=== PATIENT | male | born 1945 | race Caucasian/White ===

== ENCOUNTER 2018-05-10 11:19 | Emergency (ER) | payer OTHER ==
--- OUTSIDE RECORDS SUMMARY | 2018-05-10 11:21 | XMS REPORT ---
:1945 [facility] Address [address] [place] [address] Dr. Phillips [address] [place] [id number] Care Team Providers Name Role Phone Unavailable Unavailable Unavailable Problems This patient has no known problems. Allergies, Adverse Reactions, Alerts This patient has no known allergies or adverse reactions. Medications This patient has no known medications.
--- NOTE | 2018-05-10 14:23 | RAD REPORT ---
EXAM DESCRIPTION: RAD - Wrist Right 3 View - 05/10/2018 2:13 pm CLINICAL HISTORY: Right wrist pain status post injury FINDINGS: No fracture or dislocation is seen. If the patient continues to have symptoms to suggest a n occult fracture then a followup plain film series in 7 days would be recommended. Shrapnel is present within the the volar soft tissues
--- NOTE | 2018-05-10 14:24 | RAD REPORT ---
EXAM DESCRIPTION: RAD - Knee Right 3 View - 05/10/2018 2:12 pm CLINICAL HISTORY: Right knee pain FINDINGS: No fracture or dislocation is seen. Right knee prosthesis is in good position without evidence of loosening
--- NOTE | 2018-05-10 14:29 | RAD REPORT ---
EXAM DESCRIPTION: CT - Head C Spine Mpr Wo Con - 05/10/2018 1:59 pm CLINICAL HISTORY: Head and neck injury status post fall. Head and neck pain COMPARISON: None. TECHNIQUE: Computed axial tomography of the head and cervical spine was obtained. Sagittal and coronal reconstruction was performed. All CT scans are performed using dose optimization technique as appropriate and may include automated exposure control or mA/KV adjustment according to patient size. FINDINGS: An intracranial bleed is not seen. The ventricles are normal in caliber. An extra-axial fl uid collection is not noted.Fluid within the visualized sinuses and mastoids is not seen A cervical fracture is not visualized. No dislocation is noted. IMPRESSION: No acute intracranial abnormality is seen. A cervical fracture is not visualized. If the patient continues to have symptoms to suggest intracra nial /spinal cord pathology then MRI would be recommended
--- NOTE | 2018-05-10 15:15 | EDPHYS ---
Physician Documentation [facility] Name: Dwight Flaherty Age: 73 yrs Sex: Male : 1945 Arrival Date: 05/10/2018 Time: 11:23 Bed 11 Private MD: ED Physician Lion Rocha HPI: 05/10 14:26 This 73 yrs old Male presents to ER via Ambulatory with complaints of Fall jmm Injury. 14:26 Details of fall: The patient fell from an upright position. Onset: The symptoms/episode jmm began/occurred acutely. 14:26 Associated injuries: The patient sustained no obvious injury. jmm 14:26 This is a 73 year old male with a history of dm, htn that presents to the ED after a jmm fall which occurred yesterday. Patient states while picking up a paper his weight shifted and he was unable to regain balance. Patient denies loc. complaints of pain to the right wrist. Patient states he hit his head and developed nausea today. Patient denies not take anticoagulants. . Historical: - Allergies: 11:51 No Known Allergies; ph - PMHx: 11:51 Diabetes - IDDM; Hypertension; ph - PSHx: 11:51 Cholecystectomy; b/l knee replacements; ph - Immunization history: Last tetanus immunization: unknown. - Social history:: Smoking status: Patient/guardian denies using tobacco. - Ebola Screening: : No symptoms or risks identified at this time. ROS: 14:26 Constitutional: Negative for fever, chills, and weight loss, Cardiovascular: Negative jmm for chest pain, palpitations, and edema, Respiratory: Negative for shortness of breath, cough, wheezing, and pleuritic chest pain. 14:26 Abdomen/GI: Positive for nausea. 14:26 MS/extremity: Positive for abrasion, pain. 14:26 Neuro: Positive for headache. 14:26 All other systems are negative. Exam: 14:26 Constitutional: This is a well developed, well nourished patient who is awake, alert, jmm and in no acute distress. Head/Face: atraumatic. Eyes: EOMI, no conjunctival erythema appreciated ENT: Moist Mucus Membranes Neck: Trachea midline, Supple 14:26 Neck: C-spine: appears grossly normal. 14:26 Chest/axilla: Inspection: normal, Palpation: tenderness, is not appreciated. 14:26 Cardiovascular: Rate: normal, Rhythm: regular. 14:26 Respiratory: the patient does not display signs of respiratory distress, Respirations: normal, Breath sounds: are clear throughout. 14:26 Abdomen/GI: Inspection: abdomen appears normal, Bowel sounds: normal, Palpation: abdomen is soft and non-tender, in all quadrants. 14:26 Musculoskeletal/extremity: ROM: intact in all extremities, painful flexion of the right wrist appreciated, no bony tenderness appreciated, no snuff box tenderness is appreciated. compartments are soft, nvi. FROM noted to the right knee, abrasion noted to the superior tibial region, NVI. 14:26 Skin: abrasions noted to the right and left forearms and the right tibial region. 14:26 Neuro: Orientation: is normal, Mentation: is normal, Memory: is normal. 14:26 Psych: Behavior/mood is pleasant, cooperative. Vital Signs: 11:51 BP 152 / 102; Pulse 72; Resp 18; Temp 97.9; Pulse Ox 98% on R/A; Weight 173.27 kg; ph Height 6 ft. 8 in. (203.20 cm); Pain 3/10; 11:51 Body Mass Index 41.96 (173.27 kg, 203.20 cm) ph Audrey Coma Score: 11:51 Eye Response: spontaneous(4). Verbal Response: oriented(5). Motor Response: obeys ph commands(6). Total: 15. Trauma Score (Adult): 11:51 Eye Response: spontaneous(1); Verbal Response: oriented(1); Motor Response: obeys ph commands(2); Systolic BP: > 89 mm Hg(4); Respiratory Rate: 10 to 29 per min(4); Audrey Score: 15; Trauma Score: 12 MDM: 14:26 Patient medically screened. [facility] 15:13 Data reviewed: vital signs, nurses notes. Counseling: I had a detailed discussion with arnaldo the patient and/or guardian regarding: the historical points, exam findings, and any diagnostic results supporting the discharge/admit diagnosis, radiology results, the need for outpatient follow up, to return to the emergency department if symptoms worsen or persist or if there are any questions or concerns that arise at home. 15:13 ED course: Patient is alert and non toxic in appearance in the ED. Patient advised to [facility] follow up with orthopedics for further evaluation of the right wrist. CT negative, NVI. 05/10 13:43 Order name: CT Head C Spine; Complete Time: 14:30 05/10 13:44 Order name: Knee Right 3 View XRAY; Complete Time: 14:30 05/10 13:44 Order name: Wrist Right 3 View XRAY; Complete Time: 14:30 05/10 15:03 Order name: Wound Care; Complete Time: 15:56 [facility] Administered Medications: 15:56 Drug: Tetanus-Diphtheria Toxoid Adult 0.5 ml {Precision Filer Hand: IMT ([employer]) Biologic. Exp: hb 04/12/2020. Lot #: [id number]. } Route: IM; Site: right deltoid; 16:10 Follow up: Response: No adverse reaction hb Disposition: 05/11 09:09 Co-signature as Attending Physician, Lion Rocha MD I agree with the assessment and jose plan of care. Disposition: 05/10/18 15:14 Discharged to Home. Impression: Unspecified injury of head, Sprain of unspecified part of right wrist and hand, Abrasion of lower leg. - Condition is Fair. - Discharge Instructions: Abrasion, Head Injury, Adult, Wrist Sprain. - Medication Reconciliation Form, Thank You Letter, Antibiotic Education, Prescription Opioid Use form. - Follow up: Private Physician; When: 2 - 3 days; Reason: Recheck today's complaints, Continuance of care, Re-evaluation by your physician. Signatures: Dispatcher [employer] Lion Carbajal MD MD cha Mickail, Joel, PA PA jmm Hall, Patricia, PUMA RN Renetta Cates RN RN Corrections: (The following items were deleted from the chart) 05/10 16:25 15:14 05/10/2018 15:14 Discharged to Home. Impression: Unspecified injury of head; hb Sprain of unspecified part of right wrist and hand; Abrasion of lower leg. Condition is Fair. Forms are Medication Reconciliation Form, Thank You Letter, Antibiotic Education, Prescription Opioid Use. Follow up: Private Physician; When: 2 - 3 days; Reason: Recheck today's complaints, Continuance of care, Re-evaluation by your physician. arnaldo
--- NOTE | 2018-05-10 15:15 | ER ---
Nurse's Notes [facility] Name: Dwight Flaherty Age: 73 yrs Sex: Male : 1945 Arrival Date: 05/10/2018 Time: 11:23 Bed 11 Private MD: Diagnosis: Unspecified injury of head;Sprain of unspecified part of right wrist and hand;Abrasion of lower leg Presentation: 05/10 11:55 Presenting complaint: Patient states: Slipped and fell in driveway, states that he is ph unsure if he lost consciousness, reports nausea, pain to R wrist and R knee, abrasions noted to R forearm and R knee, denies dizziness or vomiting. Transition of care: patient was not received from another setting of care. Onset of symptoms was May 10, 2018. Risk Assessment: Do you want to hurt yourself or someone else? Patient reports no desire to harm self or others. Initial Sepsis Screen: Does the patient meet any 2 criteria? No. Patient's initial sepsis screen is negative. Does the patient have a suspected source of infection? No. Patient's initial sepsis screen is negative. Care prior to arrival: None. 11:55 Method Of Arrival: Ambulatory ph 11:55 Acuity: GENO 4 ph Historical: - Allergies: 11:51 No Known Allergies; ph - PMHx: 11:51 Diabetes - IDDM; Hypertension; ph - PSHx: 11:51 Cholecystectomy; b/l knee replacements; ph - Immunization history: Last tetanus immunization: unknown. - Social history:: Smoking status: Patient/guardian denies using tobacco. - Ebola Screening: : No symptoms or risks identified at this time. Screenin:15 Abuse screen: Denies threats or abuse. Denies injuries from another. Nutritional hb screening: No deficits noted. Tuberculosis screening: No symptoms or risk factors identified. Fall Risk None identified. Assessment: 14:00 General: Appears in no apparent distress. Behavior is calm, cooperative. Pain: Pain hb currently is 2 out of 10 on a pain scale. Neuro: Level of Consciousness is awake, alert, obeys commands, Oriented to person, place, time, situation. Cardiovascular: Capillary refill < 3 seconds Patient's skin is warm and dry. Respiratory: Airway is patent Respiratory effort is even, unlabored, Respiratory pattern is regular, symmetrical. GI: No signs and/or symptoms were reported involving the gastrointestinal system. : No signs and/or symptoms were reported regarding the genitourinary system. EENT: No signs and/or symptoms were reported regarding the EENT system. Derm: Skin is pink, warm \T\ dry. Musculoskeletal: abrasion to right knee. 15:00 Reassessment: Patient appears in no apparent distress at this time. No changes from hb previously documented assessment. Patient and/or family updated on plan of care and expected duration. Pain level reassessed. Patient is alert, oriented x 3, equal unlabored respirations, skin warm/dry/pink. 16:00 Reassessment: Patient appears in no apparent distress at this time. No changes from hb previously documented assessment. Patient and/or family updated on plan of care and expected duration. Pain level reassessed. Patient is alert, oriented x 3, equal unlabored respirations, skin warm/dry/pink. Vital Signs: 11:51 BP 152 / 102; Pulse 72; Resp 18; Temp 97.9; Pulse Ox 98% on R/A; Weight 173.27 kg; ph Height 6 ft. 8 in. (203.20 cm); Pain 3/10; 11:51 Body Mass Index 41.96 (173.27 kg, 203.20 cm) ph [place] Coma Score: 11:51 Eye Response: spontaneous(4). Verbal Response: oriented(5). Motor Response: obeys commands(6). Total: 15. Trauma Score (Adult): 11:51 Eye Response: spontaneous(1); Verbal Response: oriented(1); Motor Response: obeys commands(2); Systolic BP: > 89 mm Hg(4); Respiratory Rate: 10 to 29 per min(4); [place] Score: 15; Trauma Score: 12 ED Course: 11:23 Patient arrived in ED. tw3 11:52 Arm band placed on right wrist. Patient placed in waiting room, Patient notified of wait time. 11:56 Triage completed. 13:53 Wagner Reich PA is PHCP. [facility] 13:53 Lion Rocha MD is Attending Physician. [facility] 13:57 CT completed. Patient tolerated procedure well. Patient moved to CT via wheelchair. sj Patient moved back from CT. 13:59 CT Head C Spine In Process Unspecified. EDMS 14:11 X-ray completed. Patient tolerated procedure well. Patient moved to radiology via tm4 wheelchair. Patient moved back from radiology. 14:13 Knee Right 3 View XRAY In Process Unspecified. EDMS 14:13 Wrist Right 3 View XRAY In Process Unspecified. EDMS 15:00 Patient has correct armband on for positive identification. Bed in low position. Call hb light in reach. Side rails up X 1. 15:59 Renetta Alvarez, RN is Primary Nurse. hb 16:15 No provider procedures requiring assistance completed. Patient did not have IV access hb during this emergency room visit. Administered Medications: 15:56 Drug: Tetanus-Diphtheria Toxoid Adult 0.5 ml {Ship Pilot: [place]. Exp: hb 04/12/2020. Lot #: [id number]. } Route: IM; Site: right deltoid; 16:10 Follow up: Response: No adverse reaction hb Intake: 11:51 PO: 0ml; Total: 0ml. ph Output: 11:51 Urine: 0ml; Total: 0ml. ph Outcome: 15:14 Discharge ordered by . arnaldo 16:15 Discharged to home ambulatory. hb 16:15 Condition: stable 16:15 Discharge instructions given to patient, Instructed on discharge instructions, follow up and referral plans. medication usage, Demonstrated understanding of instructions, follow-up care, medications. 16:25 Patient left the ED. hb Signatures: Dispatcher [employer] EDMS Wagner Reich PA PA jmm Jones, Susan sj Marroquin, Tracy tm4 Mignon Pierson RN RN Renetta Alvarez, PUMA RN Lilly Pryor tw3
[2018-05-10] MEDS ORDERED: TETANUS & DIPHTHERIA TOX,ADULT 0.5 ML VIAL ONE (15:56)
[2018-05-10 16:31] VITALS: BP 152/102; TEMP 97.9; O2SAT 98
== END 2018-05-10 16:25 | disposition home or self-care (01) ==
LOC: ER 11:19
DX: S63.91XA Sprain of unspecified part of right wrist and hand, initial encounter (principal); S80.811A Abrasion, right lower leg, initial encounter; W19.XXXA Unspecified fall, initial encounter; Y93.89 Activity, other specified; Y92.9 Unspecified place or not applicable; Z23 Encounter for immunization; I10 Essential (primary) hypertension
CPT/HCPCS: 70450; 72125; 90714; 99284

== ENCOUNTER 2018-11-07 16:50 | Emergency (ER) | payer OTHER ==
--- OUTSIDE RECORDS SUMMARY | 2018-11-07 16:52 | XMS REPORT ---
:1945 [facility] Address [address] [place] [address] Dr. Phillips [address] [place] [id number] Care Team Providers Name Role Phone Unavailable Unavailable Unavailable Problems This patient has no known problems. Allergies, Adverse Reactions, Alerts This patient has no known allergies or adverse reactions. Medications This patient has no known medications.
--- NOTE | 2018-11-07 18:14 | RAD REPORT ---
EXAM DESCRIPTION: RAD - Foot Left 3 View - 11/07/2018 6:04 pm CLINICAL HISTORY: Ulcerated area dorsal base of small toe COMPARISON: No comparisons FINDINGS: Quite prominent degenerative changes are present at the first metatarsal-phalangeal joint. Soft tissue swelling is seen affecting the fifth digit. Mild soft tissue swelling is also present al esa the dorsum of the forefoot. No fracture or radiographic evidence of osteomyelitis. Large calcanea l spurs present.
[2018-11-07 19:26] LABS: Absolute Lymphocytes (CBC) 1.2 K/uL (0.7-4.9); Basophils % 0.4 % (0-1.3); Hematocrit 43.1 % (39.6-49.0); Lymphocytes % 13.2 % (15.3-44.8); MPV 8.7 fL (7.6-11.3); RBC Red Blood Cell Count 4.75 M/uL (4.33-5.43)
[2018-11-07] MEDS ORDERED: CLINDAMYCIN 900MG/D5W 900 MG/50 ML IVPB IV ONE (19:27)
[2018-11-07] MEDS ORDERED: SMZ./TMP. 800/160 MG TABLET ONE (19:27)
[2018-11-07 19:41] LABS: Potassium 4.4 mmol/L (3.5-5.1)
[2018-11-07] MEDS ORDERED: SILVER SULFADIAZINE 1% 25 GM TOP ONE (20:57)
--- NOTE | 2018-11-07 21:16 | ER ---
Nurse's Notes [facility] Name: Dwight Flaherty Age: 73 yrs Sex: Male : 1945 Arrival Date: 11/07/2018 Time: 16:53 Bed 16 Private MD: Otto Hawk Diagnosis: Pressure ulcer-left 5th toe;Type 1 diabetes mellitus;Unspecified kidney failure-insufficency Presentation: 11/07 18:20 Presenting complaint: Patient states: Blister/sore to L foot that appeared yesterday, ph denies known injury, hx of IDDM and neuropathy, denies fever, N/V. Transition of care: patient was not received from another setting of care. Onset of symptoms was November 07, 2018. Risk Assessment: Do you want to hurt yourself or someone else? Patient reports no desire to harm self or others. Initial Sepsis Screen: Does the patient meet any 2 criteria? No. Patient's initial sepsis screen is negative. Does the patient have a suspected source of infection? Yes: Skin breakdown/wound. Care prior to arrival: None. 18:20 Method Of Arrival: Ambulatory ph 18:20 Acuity: GENO 3 ph Historical: - Allergies: 18:22 No Known Allergies; ph - PMHx: 18:22 Diabetes - IDDM; Hypertension; psoriasis; ph - PSHx: 18:22 Cholecystectomy; b/l knee replacements; ph - Immunization history:: Adult Immunizations unknown. - Social history:: Smoking status: Patient/guardian denies using tobacco. - Ebola Screening: : No symptoms or risks identified at this time. Screenin:15 Abuse screen: Denies threats or abuse. Denies injuries from another. Nutritional ph screening: No deficits noted. Tuberculosis screening: No symptoms or risk factors identified. Fall Risk None identified. Assessment: 18:30 General: Appears in no apparent distress. comfortable, well groomed, Behavior is calm, ph cooperative, appropriate for age, Denies fever, feeling ill. Pain: Denies pain. Neuro: Level of Consciousness is awake, alert, obeys commands, Oriented to person, place, time, situation. Cardiovascular: Capillary refill < 3 seconds in bilateral fingers Patient's skin is warm and dry. Respiratory: Airway is patent Respiratory effort is even, unlabored, Respiratory pattern is regular, symmetrical. Derm: Skin is healthy with good turgor, Skin is pink, warm \T\ dry. Derm: Wound noted left fifth toe. Musculoskeletal: Circulation, motion, and sensation intact. Range of motion: intact in all extremities. 19:15 Reassessment: Patient appears in no apparent distress at this time. Patient and/or jb4 family updated on plan of care and expected duration. Pain level reassessed. Patient is alert, oriented x 3, equal unlabored respirations, skin warm/dry/pink. 20:28 Reassessment: Patient appears in no apparent distress at this time. Patient and/or jb4 family updated on plan of care and expected duration. Pain level reassessed. Patient is alert, oriented x 3, equal unlabored respirations, skin warm/dry/pink. 21:29 Reassessment: Patient appears in no apparent distress at this time. Patient and/or jb4 family updated on plan of care and expected duration. Pain level reassessed. Patient is alert, oriented x 3, equal unlabored respirations, skin warm/dry/pink. Vital Signs: 18:21 BP 143 / 71; Pulse 75; Resp 18; Temp 97.9; Pulse Ox 97% on R/A; Weight 165.11 kg; ph Height 6 ft. 8 in. (203.20 cm); Pain 0/10; 20:30 BP 133 / 66; Pulse 74; Resp 16; Pulse Ox 97% on R/A; jb4 21:00 BP 133 / 75; Pulse 76; Resp 16; Pulse Ox 97% on R/A; jb4 18:21 Body Mass Index 39.99 (165.11 kg, 203.20 cm) ph ED Course: 16:53 Patient arrived in ED. ag5 16:53 Otto Hawk DO is Private Physician. ag5 17:05 Michele Ortega MD is Attending Physician. kdr 18:10 Foot Left 3 View XRAY In Process Unspecified. EDMS 18:20 Mignon Pierson, PUMA is Primary Nurse. ph 18:21 Triage completed. ph 18:22 Arm band placed on. ph 19:07 Initial lab(s) drawn, by me, sent to lab. First set of blood cultures drawn by me. em1 Inserted saline lock: 20 gauge in right antecubital area, using aseptic technique. Blood collected. 19:15 Patient has correct armband on for positive identification. Bed in low position. Call ph light in reach. Side rails up X 1. Pulse ox on. NIBP on. Door closed. Noise minimized. Warm blanket given. Head of bed elevated. 19:48 Attending Physician role handed off by Michele Ortega MD cha 19:48 Lion Rocha MD is Attending Physician. [facility] 21:01 Otto Hawk DO is Referral Physician. [facility] 21:05 Redd Fung MD is Referral Physician. [facility] 21:30 No provider procedures requiring assistance completed. IV discontinued, intact, jb4 bleeding controlled, No redness/swelling at site. Pressure dressing applied. Administered Medications: 19:34 Drug: Clindamycin 900 mg Route: IVPB; Infused Over: 30 mins; Site: right antecubital; jb4 20:04 Follow up: Response: No adverse reaction; IV Status: Completed infusion; IV Intake: [id number] 19:34 Drug: Bactrim (160 mg-800 mg (DS) 1 tablet Route: PO; jb4 21:28 Follow up: Response: No adverse reaction jb4 19:40 Not Given (Other Intervention Used): Bactrim - Trimethoprim-Sulfamethoxazole (40mg - jb4 200mg / 5mL) 1 tsp PO once 21:15 Drug: Silvadene Cream 1 % 1 application Route: Topical; Site: wound; jb4 21:28 Follow up: Response: No adverse reaction jb4 21:27 Drug: Tetanus-Diphtheria Toxoid Adult 0.5 ml {Gizzard Skin Remover: [employer]. Exp: jb4 07/10/2020. Lot #: [id number]. } Route: IM; Site: left deltoid; 21:28 Follow up: Response: Medication administered at discharge. jb4 Intake: 20:04 IV: 50ml; Total: 50ml. jb4 Outcome: 21:03 Discharge ordered by . [facility] 21:30 Discharged to home ambulatory, with family. jb4 21:30 Condition: stable 21:30 Discharge instructions given to patient, family, Instructed on discharge instructions, follow up and referral plans. medication usage, Demonstrated understanding of instructions, follow-up care, medications, Prescriptions given X 3. 21:30 Patient left the ED. jb4 Signatures: Dispatcher [employer] EDNJ Lion Rocha MD MD cha Rittger, Kevin, MD MD kdr Martinez, Eric em1 Mignon Pierson RN RN Duran Mxion RN RN jb4 Redd Scott ag5 Corrections: (The following items were deleted from the chart) 19:39 19:34 Bactrim - Trimethoprim-Sulfamethoxazole (40mg - 200mg / 5mL) 1 tsp PO jb4 jb4 21:30 21:00 No provider procedures requiring assistance completed. jb4 jb4 21:30 21:00 IV discontinued, intact, bleeding controlled, No redness/swelling at site. jb4 Pressure dressing applied, jb4
--- NOTE | 2018-11-07 21:16 | EDPHYS ---
Physician Documentation [facility] Name: Dwight Flaherty Age: 73 yrs Sex: Male : 1945 Arrival Date: 11/07/2018 Time: 16:53 Bed 16 Private MD: Otto Hawk ED Physician iLon Rocha HPI: 11/07 18:28 This 73 yrs old Male presents to ER via Ambulatory with complaints of Foot kdr Pain. 18:28 The patient presents with an abrasion, an injury, pain, that is acute. The complaints kdr affect the left foot. Context: The problem was sustained at home, resulted from The patient states that he noted a small abrasion to the dorsum of his left small toe on Monday evening. Since then, he has noted that it has increased in size and now there is ecchymosis to the lateral aspect of the wound which is now about 1 CM in letty. There is also mild erythema to the lateral dorsum of the left foot as well. Due to his diabetic peripheral neuropathy, he has little sensation bilaterally below the ankles. Onset: The symptoms/episode began/occurred gradually, Monday. Modifying factors: The symptoms are alleviated by nothing, the symptoms are aggravated by nothing. Associated signs and symptoms: The patient has no apparent associated signs or symptoms. Severity of symptoms: At their worst the symptoms were mild, in the emergency department the symptoms are unchanged. The patient has not experienced similar symptoms in the past. The patient has not recently seen a physician. Historical: - Allergies: 18:22 No Known Allergies; ph - PMHx: 18:22 Diabetes - IDDM; Hypertension; psoriasis; ph - PSHx: 18:22 Cholecystectomy; b/l knee replacements; ph - Immunization history:: Adult Immunizations unknown. - Social history:: Smoking status: Patient/guardian denies using tobacco. - Ebola Screening: : No symptoms or risks identified at this time. ROS: 18:28 MS/extremity: Positive for abrasion, ecchymosis, erythema, of the left fifth toe. kdr 18:28 Constitutional: Negative for fever, chills, and weight loss, Eyes: Negative for injury, pain, redness, and discharge, Neck: Negative for injury, pain, and swelling, Cardiovascular: Negative for chest pain, palpitations, and edema, Respiratory: Negative for shortness of breath, cough, wheezing, and pleuritic chest pain, Abdomen/GI: Negative for abdominal pain, nausea, vomiting, diarrhea, and constipation, Back: Negative for injury and pain. Exam: 18:28 Constitutional: This is a well developed, well nourished patient who is awake, alert, kdr and in no acute distress. 18:28 Skin: cellulitis, that is minimal, induration, that is mild is noted, lesion(s). Vital Signs: 18:21 BP 143 / 71; Pulse 75; Resp 18; Temp 97.9; Pulse Ox 97% on R/A; Weight 165.11 kg; ph Height 6 ft. 8 in. (203.20 cm); Pain 0/10; 20:30 BP 133 / 66; Pulse 74; Resp 16; Pulse Ox 97% on R/A; jb4 21:00 BP 133 / 75; Pulse 76; Resp 16; Pulse Ox 97% on R/A; jb4 18:21 Body Mass Index 39.99 (165.11 kg, 203.20 cm) ph MDM: 19:48 Patient medically screened. [facility] 21:01 Data reviewed: vital signs, nurses notes, lab test result(s), radiologic studies, plain jose films. 11/07 17:46 Order name: Blood Culture Adult (2) [facility] 11/07 17:46 Order name: CBC with Diff; Complete Time: 21:01 [facility] 11/07 17:46 Order name: Foot Left 3 View XRAY; Complete Time: 19:19 [facility] 11/07 17:46 Order name: Chem 7; Complete Time: 21:01 [facility] 11/07 21:00 Order name: Dressing - Wound; Complete Time: 21:15 [facility] 11/07 21:00 Order name: Gloves, Sterile; Complete Time: 21:15 [facility] 11/07 21:00 Order name: Setup Suture Tray; Complete Time: 21:15 [facility] 11/07 21:00 Order name: Post-op shoe; Complete Time: 21:15 [facility] Administered Medications: 19:34 Drug: Clindamycin 900 mg Route: IVPB; Infused Over: 30 mins; Site: right antecubital; jb4 20:04 Follow up: Response: No adverse reaction; IV Status: Completed infusion; IV Intake: [id number] 19:34 Drug: Bactrim (160 mg-800 mg (DS) 1 tablet Route: PO; jb4 21:28 Follow up: Response: No adverse reaction jb4 19:40 Not Given (Other Intervention Used): Bactrim - Trimethoprim-Sulfamethoxazole (40mg - jb4 200mg / 5mL) 1 tsp PO once 21:15 Drug: Silvadene Cream 1 % 1 application Route: Topical; Site: wound; jb4 21:28 Follow up: Response: No adverse reaction jb4 21:27 Drug: Tetanus-Diphtheria Toxoid Adult 0.5 ml {[employer]: [employer]. Exp: jb4 07/10/2020. Lot #: [id number]. } Route: IM; Site: left deltoid; 21:28 Follow up: Response: Medication administered at discharge. jb4 Disposition: 11/07/18 21:03 Discharged to Home. Impression: Pressure ulcer - left 5th toe, Type 1 diabetes mellitus, Unspecified kidney failure - insufficency. - Condition is Stable. - Discharge Instructions: Cellulitis, Adult, Type 1 Diabetes Mellitus, Diagnosis, Adult, Cellulitis, Adult, Orgd-ks-Eqdn, Chronic Kidney Disease, Adult, Ahyo-mw-Fhln, Type 1 Diabetes Mellitus, Self Care, Adult, Type 1 Diabetes Mellitus, Diagnosis, Adult, Xwkt-ce-Dibz, Type 1 Diabetes Mellitus, Self Care, Adult, Zaia-md-Ddog. - Prescriptions for Clindamycin HCl 300 mg Oral Capsule - take 1 capsule by ORAL route every 6 hours for 7 days; 28 capsule. Silvadene 1 % Topical Cream - Apply to affected area 1 application by TOPICAL route every 12 hours; 50 gram. Bactrim DS 800- 160 mg Oral Tablet - take 1 tablet by ORAL route every 12 hours for 7 days; 14 tablet. - Medication Reconciliation Form, Thank You Letter, Antibiotic Education, Prescription Opioid Use form. - Follow up: Otto Hawk DO; When: 2 - 3 days; Reason: Recheck today's complaints, Continuance of care, Re-evaluation by your physician. Follow up: Redd Fung MD; When: 2 - 3 days; Reason: Recheck today's complaints, Re-evaluation by your physician. - Problem is new. - Symptoms have improved. Signatures: Dispatcher [employer] EDLion Castellanos MD MD cha Rittger, Kevin, MD MD kdr Hall, Patricia, RN RN ph Duran Mixon, RN RN jb4 Corrections: (The following items were deleted from the chart) 21:05 21:03 11/07/2018 21:03 Discharged to Home. Impression: Pressure ulcer - left 5th toe; jose Type 1 diabetes mellitus; Unspecified kidney failure - insufficency. Condition is Stable. Forms are Medication Reconciliation Form, Thank You Letter, Antibiotic Education, Prescription Opioid Use. Follow up: Otto Hawk; When: 2 - 3 days; Reason: Recheck today's complaints, Continuance of care, Re-evaluation by your physician. Problem is new. Symptoms have improved. jose 21:30 21:05 11/07/2018 21:03 Discharged to Home. Impression: Pressure ulcer - left 5th toe; jb4 Type 1 diabetes mellitus; Unspecified kidney failure - insufficency. Condition is Stable. Discharge Instructions: Cellulitis, Adult, Type 1 Diabetes Mellitus, Diagnosis, Adult, Cellulitis, Adult, Exrz-xz-Ucwq, Chronic Kidney Disease, Adult, Kmxd-it-Zrad, Type 1 Diabetes Mellitus, Self Care, Adult, Type 1 Diabetes Mellitus, Diagnosis, Adult, Kooq-no-Dnmv, Type 1 Diabetes Mellitus, Self Care, Adult, Vbcv-up-Qjwu. Prescriptions for Clindamycin HCl 300 mg Oral Capsule - take 1 capsule by ORAL route every 6 hours for 7 days; 28 capsule, Silvadene 1 % Topical Cream - Apply to affected area 1 application by TOPICAL route every 12 hours; 50 gram, Bactrim DS 800-160 mg Oral Tablet - take 1 tablet by ORAL route every 12 hours for 7 days; 14 tablet. and Forms are Medication Reconciliation Form, Thank You Letter, Antibiotic Education, Prescription Opioid Use. Follow up: Otto Hawk; When: 2 - 3 days; Reason: Recheck today's complaints, Continuance of care, Re-evaluation by your physician. Follow up: Redd Fung; When: 2 - 3 days; Reason: Recheck today's complaints, Re-evaluation by your physician. Problem is new. Symptoms have improved. jose
[2018-11-07] MEDS ORDERED: TETANUS & DIPHTHERIA TOX,ADULT 0.5 ML VIAL ONE (21:20)
[2018-11-07 22:06] VITALS: TEMP 97.9; O2SAT 97
[2018-11-07 22:09] VITALS: BP 133/75
== END 2018-11-07 21:30 | disposition home or self-care (01) ==
LOC: ER 16:50
DX: L89.899 Pressure ulcer of other site, unspecified stage (principal); N19 Unspecified kidney failure; E10.40 Type 1 diabetes mellitus 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neuropathy, unspecified; Z96.653 Presence of artificial knee joint, bilateral; Z23 Encounter for immunization
CPT/HCPCS: 36415; 80048; 85025; 87040; 90471; 90714; 96365; 99284

== ENCOUNTER 2019-04-17 23:39 | Inpatient (IN) | payer OTHER ==
--- OUTSIDE RECORDS SUMMARY | 2019-04-17 23:42 | XMS REPORT ---
:1945 [facility] Address [address] [place] [address] [address] [place] [address] Care Team Providers Name Role Phone Unavailable Unavailable Unavailable Problems This patient has no known problems. Allergies, Adverse Reactions, Alerts This patient has no known allergies or adverse reactions. Medications This patient has no known medications.
--- OUTSIDE RECORDS SUMMARY | 2019-04-17 23:42 | XMS REPORT ---
:1945 Author Organization [employer] Care Team Providers Name Role Phone Yann Diaz Provider Role Unavailable Allergies, Adverse Reactions, Alerts Substance Reaction Event Type N.K.D.A. 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 skin of neck Assessment Vitamin D deficiency E55.9 Active Assessment shelter (current) use of insulin Z79.4 Active Assessment Proteinuria, unspecified R80.9 Active Assessment Anemia, iron deficiency D50.9 Active Assessment Chronic GERD K21.9 Active Assessment Obstructive sleep apnea G47.33 Active Assessment Diabetic polyneuropathy associated E11.42 Active with type 2 diabetes mellitus Assessment Chronic obstructive pulmonary J44.9 Active disease, unspecified COPD type Problem 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 Active skin of neck Assessment Hyperlipidemia E78.5 Active Problem Type 2 diabetes mellitus with E11.22 Active diabetic chronic kidney disease Assessment Benign essential HTN I10 Active Problem PUD (peptic ulcer disease) K27.9 Active Problem Chronic obstructive pulmonary J44.9 Active disease, unspecified COPD type Problem History of gout Z87.39 Active Problem Morbid (severe) obesity due to E66.01 Active excess calories Problem Proteinuria, unspecified R80.9 Active Problem Vitamin D deficiency E55.9 Active Assessment Body mass index (BMI) 40.0-44.9, Z68.41 Active adult Problem Type 2 diabetes mellitus with other E11.29 Active diabetic kidney complication Assessment Type 2 diabetes mellitus with E11.21 Active diabetic nephropathy Problem PSA (psoriatic arthritis) L40.50 Active Problem shelter (current) use of insulin Z79.4 Active Problem Body mass index (BMI) 40.0-44.9, Z68.41 Active adult Problem Diabetic polyneuropathy associated E11.42 Active with type 2 diabetes mellitus Assessment Hyperplastic colon polyp K63.5 Active Problem Obstructive sleep apnea G47.33 Active Assessment Murmur, cardiac R01.1 Active Problem Murmur, cardiac R01.1 Active Assessment History of gout Z87.39 Active Problem Chronic GERD K21.9 Active Assessment PUD (peptic ulcer disease) K27.9 Active Problem Hyperplastic colon polyp K63.5 Active Assessment Morbid (severe) obesity due to E66.01 Active excess calories Problem Hyperlipidemia E78.5 Active Assessment PSA (psoriatic arthritis) L40.50 Active Problem Type 2 diabetes mellitus with E11.21 Active diabetic nephropathy Problem Anemia, iron deficiency D50.9 Active Problem Benign essential HTN I10 Active Medications Medication Code Code Instructions Start End Status Dosage System Date Date Levemir [facility] 66077453005 100 UNIT/ML Active inject FlexTouch Subcutaneous 130 U daily Otezla [facility] 96831858876 30 MG Orally Active 1 tablet Twice a day Gabapentin ND 90889184182 300 MG Orally Active 1 capsule 1 Am and 2 tab PM Fish Oil [facility] 07937601931 1000 MG Orally Active 1 capsule Twice a day Moxifloxacin [facility] 03900659926 0.5 % Active 1 drop into HCl Ophthalmic affected eye Once a day Omeprazole [facility] 15496637223 40 MG Orally Active take 1 capsule Once a day by mouth every day Amlodipine [facility] 09619558516 5 MG Orally Active TAKE 1 TABLET Besylate Once a day EVERY DAY Victoza [facility] 04954091120 18 MG/3ML Oct Active inject 1.8 mg Subcutaneous 11, subcutaneously QD 2020 every day Centrum Silver [facility] [address]-09 Active not defined Rosuvastatin [facility] 21903774200 10 MG Orally Active 1 tablet Calcium qHS Allopurinol ND 14094594058 300 MG Orally May Active take 1 tablet Once a day 14, by mouth every 2020 day GlipiZIDE [facility] 19044458233 10 MG Orally Active take 1 tablet BID twice a day Bydureon BCise [facility] 01569207490 2 MG/0.85ML Inactive INJECT SUBCUTANEOUSLY DIRECTED ONCE WEEKLY Lisinopril ND 30880471174 40 MG Orally Active 1 tablet Once a day Metoprolol ND 56731957415 100 MG Orally Active 1 tablet Succinate ER Once a day Ab Aspirin [facility] [address]-47 81 mg Orally Active 1 tablet Once a day Arnuity [facility] 75546512731 100 MCG/ACT Active 1 puff Ellipta Inhalation Once a day HydrALAZINE [facility] 38931909007 25 MG Orally Active 1 1/2 tablet HCl Three times a with food day BD Pen Needle [facility] 68911836605 31G X 5 MM Active USE DAILY WITH Mini U/F INSULIN Crestor [facility] 62136086846 10MG Active TAKE 1 TABLET AT BEDTIME FOR HIGH CHOLESTEROL Magnesium [facility] 62739281534 250 MG Orally Active 1 capsule with BID a meal Furosemide [facility] 08318637361 40 MG Orally Active 1 tablet Once a day Results No Known Results Summary Purpose [employer] Submission
[2019-04-18] MEDS ORDERED: VANCOMYCIN 1 GM/VIAL ONE (01:13)
[2019-04-18] MEDS ORDERED: NA CHLORIDE 0.9% 0 ML ONE (01:13)
[2019-04-18 01:36] LABS: Absolute Lymphocytes (CBC) 0.8 K/uL (0.7-4.9); Basophils % 0.6 % (0-1.3); Hematocrit 42.1 % (39.6-49.0); Lymphocytes % 7.2 % (15.3-44.8); MPV 9.4 fL (7.6-11.3); RBC Red Blood Cell Count 4.68 M/uL (4.33-5.43)
[2019-04-18 01:42] LABS: Protime INR 0.98
[2019-04-18 01:52] LABS: Albumin 3.3 g/dL (3.4-5.0); Bilirubin Direct 0.3 mg/dL (0-0.2); Bilirubin Total 0.9 mg/dL (0.2-1.0); CKMB Creatine Kinase MB 1.3 ng/mL (0.3-3.6); Potassium 4.5 mmol/L (3.5-5.1)
[2019-04-18] MEDS ORDERED: PIPER/TAZO/NS 3.375gm 3.375 GM/100 ML BAG ONE (01:57)
--- NOTE | 2019-04-18 03:04 | ER ---
Nurse's Notes [facility] Name: Dwight Flaherty Age: 74 yrs Sex: Male : 1945 Arrival Date: 04/17/2019 Time: 23:42 Bed 6 Private MD: Diagnosis: Cellulitis of left lower limb Presentation: 04/18 00:20 Presenting complaint: Patient states: Reports foot infection to the right little toe, ea pt reports he has a chronic wound that is treated by Dr. Shaver, pt reports he noticed his right little toe was hurting and it was oozing yesterday morning, tonight he noticed the toe was red and the redness had spread up the top of his foot. Transition of care: patient was not received from another setting of care. Onset of symptoms was April 18, 2019. Risk Assessment: Do you want to hurt yourself or someone else? Patient reports no desire to harm self or others. Initial Sepsis Screen: Does the patient meet any 2 criteria? No. Patient's initial sepsis screen is negative. Does the patient have a suspected source of infection? No. Patient's initial sepsis screen is negative. Care prior to arrival: None. 00:20 Method Of Arrival: Ambulatory ea 00:20 Acuity: GENO 3 ea Triage Assessment: 00:33 General: Appears in no apparent distress. Behavior is calm, cooperative, appropriate ea for age. Pain: Denies pain. Neuro: Level of Consciousness is awake, alert, obeys commands, Oriented to person, place, time, situation. Respiratory: Airway is patent Respiratory effort is even, unlabored, Respiratory pattern is regular, symmetrical. Historical: - Allergies: 00:33 No Known Allergies; ea - Home Meds: 07:49 hydralazine 75 mg Oral tab [Active]; gabapentin 300 mg oral cap [Active]; metoprolol jl7 tartrate 100 mg Oral tab 1 tab once daily [Active]; glipizide 10 mg Oral tab 1 tab 2 times per day [Active]; furosemide 40 mg Oral tab 1 tab once daily [Active]; allopurinol 300 mg Oral tab 1 tab once daily [Active]; omeprazole 40 mg Oral cpDR 1 cap once daily [Active]; Bydureon 2 mg subcutaneous serr every 7 days [Active]; Victoza 2-Malvin 0.6 mg/0.1 mL (18 mg/3 mL) subcutaneous pnij 1.8 units once daily [Active]; Arnuity Ellipta 100 mcg/actuation inhalation dsdv 1 puff once daily [Active]; Levemir FlexTouch 100 unit/mL (3 mL) subcutaneous inpn 130 unit daily [Active]; lisinopril 40 mg Oral tab 1 tab once daily [Active]; rosuvastatin 10 mg oral tab 1 tab once daily [Active]; amlodipine 5 mg tab 1 tab once daily [Active]; Otezla 30 mg oral tab 1 tab 2 times per day [Active]; - PMHx: 00:33 psoriasis; Hypertension; Diabetes - IDDM; ea 07:49 GERD; Asbestos Scarring - Chronic Cough; jl7 - PSHx: 00:33 b/l knee replacements; Cholecystectomy; ea 07:49 Bilateral cataracts surgery; Carpal Tunnel Repair; jl7 - Immunization history:: Adult Immunizations up to date. - Coronavirus screen:: The patient has NOT traveled to [place] in the past 14 days. - Social history:: Smoking status: Patient denies any tobacco usage or history of. - Ebola Screening: : No symptoms or risks identified at this time. Screenin:31 Abuse screen: Denies threats or abuse. Nutritional screening: No deficits noted. ea Tuberculosis screening: No symptoms or risk factors identified. Fall Risk None identified. Assessment: 01:27 General: Appears in no apparent distress. Behavior is calm, cooperative, appropriate ea for age. Pain: Denies pain. Neuro: Level of Consciousness is awake, alert, obeys commands, Oriented to person, place, time. Cardiovascular: Patient's skin is warm and dry. Respiratory: Airway is patent Respiratory effort is even, unlabored, Respiratory pattern is regular, symmetrical. Derm: Wound noted left fifth toe Wound is purulent drainage noted to left fifth toe. 02:16 Reassessment: Patient and/or family updated on plan of care and expected duration. Pain ea level reassessed. Patient is alert, oriented x 3, equal unlabored respirations, skin warm/dry/pink. Pt reports he is unable to take Vancomycin due to his kidneys. Provider notified. 03:30 Reassessment: Patient and/or family updated on plan of care and expected duration. Pain ea level reassessed. Patient is alert, oriented x 3, equal unlabored respirations, skin warm/dry/pink. 04:00 Reassessment: Patient and/or family updated on plan of care and expected duration. Pain ea level reassessed. Patient is alert, oriented x 3, equal unlabored respirations, skin warm/dry/pink. 07:30 Reassessment: Patient appears in no apparent distress at this time. Patient and/or jl7 family updated on plan of care and expected duration. Pain level reassessed. Patient is alert, oriented x 3, equal unlabored respirations, skin warm/dry/pink. Wound to left 5th toe, bandaged with non-stick gauze and coban Patient denies pain at this time. Vital Signs: 00:32 BP 142 / 77; Pulse 96; Resp 18; Temp 98.7; Pulse Ox 96% ; Weight 165.56 kg; Height 6 ea ft. 8 in. (203.20 cm); 01:13 BP 128 / 66; Pulse 82; Resp 18; Pulse Ox 94% on R/A; aa1 02:35 BP 130 / 71; Pulse 77; Resp 18; Pulse Ox 95% on R/A; ea 03:15 BP 161 / 77; Pulse 73; Resp 18; Pulse Ox 95% on R/A; ea 04:00 BP 107 / 90; Pulse 72; Resp 18; Pulse Ox 95% on R/A; ea 07:49 BP 129 / 67; Pulse 74; Resp 16 S; Pulse Ox 96% on R/A; jl7 00:32 Body Mass Index 40.10 (165.56 kg, 203.20 cm) ea ED Course: 04/17 23:42 Patient arrived in ED. cl3 04/18 00:00 Sivakumar Spivey MD is Attending Physician. tw4 00:31 Triage completed. ea 00:31 Arm band placed on right wrist. Patient placed in an exam room, on a stretcher, on ea pulse oximetry. 00:32 Patient has correct armband on for positive identification. Bed in low position. Call ea light in reach. Side rails up X2. 01:03 Mi Hill, PUMA is Primary Nurse. ea 02:17 No provider procedures requiring assistance completed. ea 03:03 Matthew Strong is Hospitalizing Provider. tw4 03:18 Foot Left 2 View XRAY In Process Unspecified. EDMS 04:09 Patient admitted, IV remains in place. ea Administered Medications: 02:01 Drug: Zosyn 3.375 grams Route: IVPB; Infused Over: 60 mins; Site: right antecubital; ea 04:12 Follow up: Response: No adverse reaction; IV Status: Completed infusion ea 02:16 Not Given (Physician Discretion): vancoMYCIN 1 grams IVPB once over 2 hrs ea 07:30 Drug: Insulin Regular Human 6 units {Co-Signature: tw2 (Velia Winters RN).} Route: IVP; jl7 Site: right forearm; 08:00 Follow up: Response: No adverse reaction jl7 Outcome: 03:03 Decision to Hospitalize by Provider. tw4 04:09 Ad[facility] to ER Hold. [facility]. ea 04:09 Condition: stable 04:09 Instructed on the need for admit, Demonstrated understanding of instructions. 08:00 Patient left the ED. jl7 Signatures: Dispatcher [employer] EDMS Rosmery Montilla RN RN aa1 Vesna Alejo RN RN jl7 Mi Hill RN RN ea Wadley, Terrence, MD MD tw4 Curtis Muse cl3 Velia Winters RN tw2
--- NOTE | 2019-04-18 03:05 | EDPHYS ---
Physician Documentation [facility] Name: Dwight Flaherty Age: 74 yrs Sex: Male : 1945 Arrival Date: 04/17/2019 Time: 23:42 Bed 6 Private MD: ED Physician Sivakumar Spivey HPI: 04/18 01:29 This 74 yrs old Male presents to ER via Ambulatory with complaints of Foot tw4 Infection. 01:29 The patient presents with cellulitis of the left fifth toe and Left fifth toenail. tw4 Description: The affected area is moderate sized, localized. Onset: The symptoms/episode began/occurred 3 day(s) ago. Possible cause(s): unknown. Associated signs and symptoms: The patient has no apparent associated signs or symptoms. Severity of symptoms: At their worst the symptoms were moderate, in the emergency department the symptoms are unchanged. The patient has experienced a previous episode. Historical: - Allergies: 00:33 No Known Allergies; ea - Home Meds: 07:49 hydralazine 75 mg Oral tab [Active]; gabapentin 300 mg oral cap [Active]; metoprolol jl7 tartrate 100 mg Oral tab 1 tab once daily [Active]; glipizide 10 mg Oral tab 1 tab 2 times per day [Active]; furosemide 40 mg Oral tab 1 tab once daily [Active]; allopurinol 300 mg Oral tab 1 tab once daily [Active]; omeprazole 40 mg Oral cpDR 1 cap once daily [Active]; Bydureon 2 mg subcutaneous serr every 7 days [Active]; Victoza 2-Malvin 0.6 mg/0.1 mL (18 mg/3 mL) subcutaneous pnij 1.8 units once daily [Active]; Arnuity Ellipta 100 mcg/actuation inhalation dsdv 1 puff once daily [Active]; Levemir FlexTouch 100 unit/mL (3 mL) subcutaneous inpn 130 unit daily [Active]; lisinopril 40 mg Oral tab 1 tab once daily [Active]; rosuvastatin 10 mg oral tab 1 tab once daily [Active]; amlodipine 5 mg tab 1 tab once daily [Active]; Otezla 30 mg oral tab 1 tab 2 times per day [Active]; - PMHx: 00:33 psoriasis; Hypertension; Diabetes - IDDM; ea 07:49 GERD; Asbestos Scarring - Chronic Cough; jl7 - PSHx: 00:33 b/l knee replacements; Cholecystectomy; ea 07:49 Bilateral cataracts surgery; Carpal Tunnel Repair; jl7 - Immunization history:: Adult Immunizations up to date. - Coronavirus screen:: The patient has NOT traveled to [place] in the past 14 days. - Social history:: Smoking status: Patient denies any tobacco usage or history of. - Ebola Screening: : No symptoms or risks identified at this time. ROS: 01:29 Constitutional: Negative for fever, chills, and weight loss, Eyes: Negative for injury, tw4 pain, redness, and discharge, Cardiovascular: Negative for chest pain, palpitations, and edema, Respiratory: Negative for shortness of breath, cough, wheezing, and pleuritic chest pain, Abdomen/GI: Negative for abdominal pain, nausea, vomiting, diarrhea, and constipation, Back: Negative for injury and pain, MS/Extremity: Negative for injury and deformity, Neuro: Negative for headache, weakness, numbness, tingling, and seizure. :29 Skin: Positive for cellulitis, of the left fifth toe and Left fifth toenail. Exam: :29 Constitutional: This is a well developed, well nourished patient who is awake, alert, tw4 and in no acute distress. Head/Face: Normocephalic, atraumatic. Chest/axilla: Normal chest wall appearance and motion. Nontender with no deformity. No lesions are appreciated. Cardiovascular: Regular rate and rhythm with a normal S1 and S2. No gallops, murmurs, or rubs. Normal PMI, no JVD. No pulse deficits. Respiratory: Lungs have equal breath sounds bilaterally, clear to auscultation and percussion. No rales, rhonchi or wheezes noted. No increased work of breathing, no retractions or nasal flaring. Abdomen/GI: Soft, non-tender, with normal bowel sounds. No distension or tympany. No guarding or rebound. No evidence of tenderness throughout. Back: No spinal tenderness. No costovertebral tenderness. Full range of motion. MS/ Extremity: Pulses equal, no cyanosis. Neurovascular intact. Full, normal range of motion. Neuro: Awake and alert, GCS 15, oriented to person, place, time, and situation. Cranial nerves II-XII grossly intact. Motor strength 5/5 in all extremities. Sensory grossly intact. Cerebellar exam normal. Normal gait. 01:29 Skin: cellulitis, that is moderate, well demarcated. Vital Signs: 00:32 BP 142 / 77; Pulse 96; Resp 18; Temp 98.7; Pulse Ox 96% ; Weight 165.56 kg; Height 6 ea ft. 8 in. (203.20 cm); 01:13 BP 128 / 66; Pulse 82; Resp 18; Pulse Ox 94% on R/A; aa1 02:35 BP 130 / 71; Pulse 77; Resp 18; Pulse Ox 95% on R/A; ea 03:15 BP 161 / 77; Pulse 73; Resp 18; Pulse Ox 95% on R/A; ea 04:00 BP 107 / 90; Pulse 72; Resp 18; Pulse Ox 95% on R/A; ea 07:49 BP 129 / 67; Pulse 74; Resp 16 S; Pulse Ox 96% on R/A; jl7 00:32 Body Mass Index 40.10 (165.56 kg, 203.20 cm) ea MDM: 00:00 Patient medically screened. 04/18 00:53 Order name: Amylase, Serum; Complete Time: 02:50 04/18 00:53 Order name: Basic Metabolic Panel; Complete Time: 02:50 04/18 06:13 Interpretation: Normal except: GLUC 338; BUN 31; CRE 1.70; GFR 40. 04/18 00:53 Order name: Blood Culture Adult (2) 04/18 00:53 Order name: CBC with Diff; Complete Time: 06:12 04/18 06:13 Interpretation: PLT 110; RDW 15.6; NEUT A 9.0; LYM% 7.2; ISHMAEL% 85.1. 04/18 00:53 Order name: Ckmb; Complete Time: 02:50 04/18 00:53 Order name: CPK; Complete Time: 02:50 04/18 00:53 Order name: Lactate; Complete Time: 02:50 04/18 00:53 Order name: LFT's; Complete Time: 02:50 04/18 06:13 Interpretation: Normal except: AST 14; BILID 0.3; GLOB 4.7; ALB 3.3; A/G 0.7. tw4 04/18 00:53 Order name: Lipase; Complete Time: 02:50 tw4 04/18 00:53 Order name: Procalcitonin; Complete Time: 02:50 4 04/18 00:53 Order name: Protime (+inr); Complete Time: 02:50 tw4 04/18 00:53 Order name: Ptt, Activated; Complete Time: 02:50 tw4 04/18 01:43 Order name: Manual Differential; Complete Time: 06:12 EDMS 04/18 06:13 Interpretation: Normal except: BANDS [F] 3; LYM 11. tw4 04/18 02:52 Order name: Foot Left 2 View XRAY tw4 04/18 00:53 Order name: Accucheck; Complete Time: 07:31 tw4 04/18 00:53 Order name: Cardiac monitoring; Complete Time: 02:04 tw4 04/18 00:53 Order name: IV Saline Lock - Large Bore; Complete Time: 02:04 tw4 04/18 00:53 Order name: Labs collected and sent; Complete Time: 02:04 tw4 04/18 00:53 Order name: O2 Per Protocol; Complete Time: 02:04 tw4 04/18 00:53 Order name: O2 Sat Monitoring; Complete Time: 02:10 tw4 Administered Medications: 02:01 Drug: Zosyn 3.375 grams Route: IVPB; Infused Over: 60 mins; Site: right antecubital; ea 04:12 Follow up: Response: No adverse reaction; IV Status: Completed infusion ea 02:16 Not Given (Physician Discretion): vancoMYCIN 1 grams IVPB once over 2 hrs ea 07:30 Drug: Insulin Regular Human 6 units {Co-Signature: tw2 (Velia Winters RN).} Route: IVP; jl7 Site: right forearm; 08:00 Follow up: Response: No adverse reaction jl7 Disposition: 04/18/19 03:03 Hospitalization ordered by Matthew Strong for Inpatient Admission. Preliminary diagnosis is Cellulitis of left lower limb. - Bed requested for Telemetry/MedSurg (Inpatient). - Status is Inpatient Admission. jl7 - Condition is Stable. - Problem is new. - Symptoms have improved. Signatures: Dispatcher [employer] EDCris Mcbride RN RN tl1 Vesna Alejo RN RN jl7 Mi Hill RN Sivakumar Pritchett ea, MD MD tw4 Velia Winters RN tw2 Corrections: (The following items were deleted from the chart) 04:06 03:03 Hospitalization Ordered by Matthew Strong for Inpatient Admission. Preliminary tl1 diagnosis is Cellulitis of left lower limb. Bed requested for Telemetry/MedSurg (Inpatient). Status is Inpatient Admission. Condition is Stable. Problem is new. Symptoms have improved. tw4 06:10 04:06 04/18/2019 03:03 Hospitalization Ordered by Matthew Strong for Inpatient tl1 Admission. Preliminary diagnosis is Cellulitis of left lower limb. Bed requested for [facility] ER HOLD. Status is Inpatient Admission. Condition is Stable. Problem is new. Symptoms have improved. tl1 08:00 06:10 04/18/2019 03:03 Hospitalization Ordered by Matthew Strong for Inpatient jl7 Admission. Preliminary diagnosis is Cellulitis of left lower limb. Bed requested for Telemetry/MedSurg (Inpatient). Status is Inpatient Admission. Condition is Stable. Problem is new. Symptoms have improved. tl1
[2019-04-18 03:43] LABS: Blood Morphology Comment NOT SEEN (NOT SEEN); Platelet Estimate ADEQ
--- NOTE | 2019-04-18 03:49 | P.HP ---
Certification for Inpatient Patient admitted to: Inpatient With expected LOS: >2 Midnights Practitioner: I am a practitioner with admitting privileges, knowledge of patient current condition, hospital course, and medical plan of care. Services: Services provided to patient in accordance with Admission requirements found in Title 42 Section 412.3 of the Code of Federal Regulations Patient History Date of Service: 04/18/19 Reason for admission: Redness and swelling of left 5th toe History of Present Illness: 74-year-old gentleman with a history of diabetes mellitus type 2, on insulin therapy, prior history of osteomyelitis, and diabetic foot infections, chronic left 5th toe wound presented to the emergency department with a complaint of increased redness and swelling of the left 5th toe. There is a small wound on the toe which is also discharging. Patient sees a podiatry who was managing the foot infection with oral clindamycin. Patient states his toe infection has gotten worse despite being on antibiotics. X-ray of the left foot has been done in the ED and the result is pending. Patient is admitted for further management. Allergies No Known Allergies Allergy (Verified 01/03/16 08:46) Home Medications: Hydralazine [Apresoline*] 75 mg PO Q8HR 06/28/13 Insulin Detemir [Levemir Flexpen] 75 units SUBQ 1700 06/28/13 Gabapentin [Neurontin*] 300 mg PO DAILY 11/19/13 Gabapentin [Neurontin*] 600 mg PO BEDTIME 11/19/13 Liraglutide [Victoza 2-Malvin] 0.6 units SUBQ 1200 11/19/13 Amlodipine Besylate 2.5 mg PO DAILY 01/03/16 Beclomethasone Dipropionate [Qvar] 2 puff IH BID 01/03/16 Furosemide 40 mg PO DAILY 01/03/16 Lisinopril 20 mg PO DAILY 01/03/16 Metoprolol Succinate [Toprol Xl*] 100 mg PO BEDTIME 01/03/16 Rosuvastatin [Crestor*] 10 mg PO BEDTIME 01/03/16 Spironolactone 0.5 tab PO DAILY 01/03/16 Ursodiol 500 mg PO DAILY 01/03/16 allopurinoL [Zyloprim*] 300 mg PO DAILY 01/03/16 Diphenox/Atropine [Lomotil*] 2 tab PO Q6H PRN #60 tab 01/05/16 Ondansetron HCl [Zofran] 4 mg PO Q6H PRN #15 tablet 01/05/16 Pantoprazole [Protonix Tab*] 40 mg PO DAILYAC #30 tab 01/05/16 metroNIDAZOLE [Flagyl] 500 mg PO Q8H #21 tablet 01/05/16 - Past Medical/Surgical History Diabetic: Yes -: Psoriasis -: Chronic kidney disease, Stage 3, Nephrology-Dr. Holt -: HTN -: Osteoarthritis -: Lymphedema -: DM Neuropathy -: Gout -: Obesity -: Obstructive sleep apnea -: Hyperlipidemia -: GERD -: History of gastric ulcer -: joint replacements - both knees -: gall bladder removed -: both hands surgery + right fingers -: punji stick removal Psychosocial/ Personal History: . He has 2 stepchildren, 1 child, and another adopted. He is retired. - Family History Father -: Heart disease - Social History Alcohol use: No CD- Drugs: No Caffeine use: Yes Review of Systems Other: Except as documented, all other systems reviewed and negative. Physical Examination - Physical Exam General: Alert, In no apparent distress, Oriented x3, Obese HEENT: Mucous membr. moist/pink, Sclerae nonicteric Neck: Supple, JVD not distended Respiratory: Clear to auscultation bilaterally, Normal air movement Cardiovascular: No edema, Regular rate/rhythm, Normal S1 S2, Systolic murmur Capillary refill: <2 Seconds Gastrointestinal: Normal bowel sounds, Soft and benign, Non-distended, No tenderness Musculoskeletal: No swelling, Other (Left 5th toe is swollen and red, small discharging wound on the dorsal aspect of the toe.) Integumentary: Erythema (Left 5th toe) Neurological: Normal speech, Normal strength at 5/5 x4 extr - Studies Laboratory Data (last 24 hrs) 04/18/19 01:10: PT 11.6, INR 0.98, APTT 32.7 04/18/19 01:10: WBC 10.5, Hgb 13.8, Hct 42.1, Plt Count 110 L 04/18/19 01:10: Sodium 136, Potassium 4.5, BUN 31 H, Creatinine 1.70 H, Glucose 338 H, Total Bilirubin 0.9, AST 14 L, ALT 22, Alkaline Phosphatase 94, Amylase 58, Lipase 202 Assessment and Plan - Problems (Diagnosis) (1) Diabetic toe ulcer Current Visit: Yes Status: Acute (2) Chronic kidney disease, stage 3 Current Visit: Yes Status: Chronic (3) HTN (hypertension) Onset Date: 01/04/16 Current Visit: No Status: Chronic Qualifiers: Hypertension type: essential hypertension Qualified Code(s): I10 - Essential (primary) hypertension (4) Obstructive sleep apnea Current Visit: No Status: Chronic (5) Type II diabetes mellitus Onset Date: 01/04/16 Current Visit: No Status: Chronic Qualifiers: Diabetes mellitus detention insulin use: with detention use Diabetes mellitus complication status: without complication Qualified Code(s): E11.9 - Type 2 diabetes mellitus without complications; Z79.4 - long term care social worker (current) use of insulin - Plan Admit to the medical floor. Start IV clindamycin and Rocephin Patient is concerned about prior history of worsening kidney function with the antibiotics and will avoid vancomycin for now. Follow foot x-ray result. Consult general surgery. Pain management as needed. Manage blood sugar with insulin sliding scale and Lantus insulin. - Advance Directives Does patient have a Living Will: Yes Does patient have a Durable POA for Healthcare: No
[2019-04-18] MEDS ORDERED: INSULIN -REGULAR HUMAN 50 UNIT/0.5 ML ML ONE (07:25)
[2019-04-18] MEDS ORDERED: GLUCAGON 1 MG/VIAL IM PRN (08:14)
[2019-04-18] MEDS ORDERED: ACETAMINOPHEN 500 MG TAB PO PRN (08:14)
[2019-04-18] MEDS ORDERED: D50W 25 GM/50 ML SYRINGE/VIAL IV PRN (08:14)
[2019-04-18] MEDS ORDERED: CLINDAMYCIN INJ 600 MG in NA CHLORIDE 0.9% 50 ML IV SCH (08:14)
--- NOTE | 2019-04-18 08:36 | RAD REPORT ---
EXAM DESCRIPTION: RAD - Foot Left 2 View - 04/18/2019 3:18 am CLINICAL HISTORY: Left foot pain, history of fifth toe region soft tissue infection, diabetes COMPARISON: Left foot October 2018 FINDINGS: Soft tissue swelling is present around the fifth toe and fifth MTP joint. No air or foreig n body in the soft tissues. Erosive changes are developing along the lateral margin fifth proximal ph alanx head. No other areas of bone destruction. Patient has severe degenerative change at the first MTP joint. No new finding at this site. Remainder of foot is also without new finding. Large plantar spur again noted. IMPRESSION: Erosive changes have developed along the lateral margin fifth proximal phalanx head cons istent with osteomyelitis. The remainder the foot shows no new finding.
[2019-04-18] MEDS ORDERED: CEFTRIAXONE/SWI 1gm 1 GM/10 ML SYR IV SCH (09:00)
[2019-04-18] MEDS: INSULIN GLARGINE 100 UNITS/ML SQ SCH (09:46)
[2019-04-18] MEDS: INSULIN -REGULAR HUMAN 50 UNIT/0.5 ML ML SQ SCH ×4 (09:46→21:19)
[2019-04-18] MEDS: HEPARIN 5000 UNIT/ML 1 ML VIAL SQ SCH ×3 (09:47→21:32)
--- NOTE | 2019-04-18 10:50 | P.PN ---
Subjective Date of Service: 04/18/19 Chief Complaint: Redness and swelling of left 5th toe Subjective: No new changes Patient seen and examined chart reviewed and case discussed with RN and Dr. Holt. Patient's redness is quite significant on the left foot. Continues to drain. Wound culture ordered. No fevers overnight. Patient is unable to go for MRI Review of Systems 10-point ROS is otherwise unremarkable Integumentary: As per HPI Physical Examination - Vital Signs Temperature: 98.1 F Blood Pressure: 153/73 Pulse: 79 Respirations: 19 Pulse Ox (%): 96 - Physical Exam General: Alert, Oriented x3, Mild distress, Obese, Other (Ill-appearing male) HEENT: Atraumatic, PERRLA, EOMI Neck: Supple Respiratory: Clear to auscultation bilaterally, Normal air movement Cardiovascular: Regular rate/rhythm, Normal S1 S2, Edema, Abnormal pulses, Systolic murmur Gastrointestinal: Normal bowel sounds, Soft and benign, Non-distended, No tenderness Musculoskeletal: No tenderness Integumentary: No rashes, No erythema Neurological: Normal speech, Normal tone, Cranial nerves 3-12 intact, Normal affect - Studies Laboratory Data (last 24 hrs) 04/18/19 01:10: PT 11.6, INR 0.98, APTT 32.7 04/18/19 01:10: WBC 10.5, Hgb 13.8, Hct 42.1, Plt Count 110 L 04/18/19 01:10: Sodium 136, Potassium 4.5, BUN 31 H, Creatinine 1.70 H, Glucose 338 H, Total Bilirubin 0.9, AST 14 L, ALT 22, Alkaline Phosphatase 94, Amylase 58, Lipase 202 Imagings Data: EXAM DESCRIPTION: RAD - Foot Left 2 View - 04/18/2019 3:18 am CLINICAL HISTORY: Left foot pain, history of fifth toe region soft tissue infection, diabetes COMPARISON: Left foot October 2018 FINDINGS: Soft tissue swelling is present around the fifth toe and fifth MTP joint. No air or foreign body in the soft tissues. Erosive changes are developing along the lateral margin fifth proximal phalanx head. No other areas of bone destruction. Patient has severe degenerative change at the first MTP joint. No new finding at this site. Remainder of foot is also without new finding. Large plantar spur again noted. IMPRESSION: Erosive changes have developed along the lateral margin fifth proximal phalanx head consistent with osteomyelitis. The remainder the foot shows no new finding. Medications List Reviewed: Yes Assessment And Plan - Plan Assessment and plan .-: Acute osteomyelitis 5th proximal phalanx, left foot. Continue IV antibiotics. Will order wound cultures. Blood cultures have been obtained. Patient is unable to go for MRI due to shrapnel in his body. Surgery has been consulted. Will likely need debridement -: Chronic kidney disease, Stage 3, Nephrology-Dr. Holt has been consulted. Will continue to monitor creatinine level. avoid NSAIDs -: Essential HTN. Continue with home medications. -: DM2 insulin-requiring with hyperglycemia and Neuropathy. Continue with sliding scale insulin and monitor blood glucose levels. -: Chronic Lymphedema. -: Osteoarthritis generalized. Stable -: Gout -: Morbid Obesity BMI 40.1 -: Obstructive sleep apnea. -: Mixed Hyperlipidemia. Continue home medication -: GERD without esophagitis. Continue with PPI -: Psoriasis Plan to discharge in: 72 Hours - Code Status/Comfort Care Code Status Assessed: Yes
[2019-04-18] MEDS ORDERED: CEFEPIME 2 GM VIAL IV SCH (11:00)
--- NOTE | 2019-04-18 12:28 | CON ---
Date of Consultation: 04/18/2019 Reason For Consultation: Elevated BUN and creatinine, hypertension, electrolyte imbalance. History Of Present Illness: This is a pleasant 74-year-old gentleman with significant past medical h istory of diabetes stage type 2, complicated with neuropathy and nephropathy, insulin dependent, hype rtension, hyperlipidemia, chronic kidney disease stage 3, follow up with me in the office with wali regan creatinine 1.5, GFR 45-50, scheduled to follow up in June. Patient apparently had admitted for red ness, possible osteomyelitis on the left small toes. Patient been treated as outpatient on oral clin damycin. Apparently, symptoms did not improve. For that reason, patient was admitted. Patient neva ed any fever, any chills. Denied taking any nonsteroidal. No recent change in his medication. Stella ent was as outpatient on spironolactone, lisinopril, and Lasix. Patient as outpatient also on antibi otic as I mentioned, the patient being on clindamycin. Upon arrival to the hospital, creatinine 1.7, GFR 40. For that reason, we have been consulted. The patient denied taking nonsteroidal, no IV contrast. Past Medical History: Includes: 1.Psoriasis. 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 3.Osteoarthritis. 4.Diabetes complicated with neuropathy and nephropathy. 5.Gout. 6.Hyperlipidemia. 7.Gastric ulcer. Allergies: NO KNOWN DRUG ALLERGIES. Home Medications: Include hydralazine 75 t.i.d., insulin, gabapentin, Victoza, amlodipine 2.5, Lasix 40, spironolactone, metoprolol, ursodiol, allopurinol, Zofran, pantoprazole, and metronidazole. Family History: Positive for coronary artery disease. Social History: Denies smoking, denies drinking, denies drugs abuse. Past Surgical History: Includes joint replacement, cholecystectomy, hand surgery. Review of Systems: Head and Neck: No red eye. No ear pain. GI: No nausea, no vomiting. : No polyuria, no dysuria, no hematuria. Electrical Systems Designer: Not applicable. Respiratory: No shortness of breath. Cardiovascular: No leg swelling, no orthopnea. Endocrine: No polydipsia. Skin: No rash. Neuro: Has neuropathy. Musculoskeletal: Has foot pain. Physical Examination: Vital Signs: When I saw the patient, blood pressure 153/73, pulse of 79, afebrile. Chest: Clear to auscultation. Heart: S1, S2 regular. Abdomen: Obese. No organomegaly. Extremities: Dressing on the left foot. Venous stasis changes in both legs. No edema. Laboratory Data: WBC 10.5, H and H 13.8/42.1, platelets 110, eosinophils 1.4, absolute count of the eosinophil 100. Sodium 136, potassium 4.5, bicarb 27, BUN 31, creatinine 1.7, GFR of 40, blood sugar 338, calcium 8.6. LFT within normal limit. Albumin 3.3. INR of 0.9. Current Medications: Include cefepime, vancomycin, Tylenol. Assessment And Plan: 1.Chronic kidney disease stage 3 with marginal acute kidney injury, mostly secondary to toxic acute tubular necrosis/prerenal. I going to hold on the diuresis for the time being. I will start the pat ient on gentle hydration and we will monitor. I am going to send for basic workup including CK, uric acid and repeat the ultrasound and we will follow up if needed. 2.Hypertension, not controlled. We will resume blood pressure medication, hold on the diuresis for the time being. 3.Diabetes as by primary. 4.Osteomyelitis. Patient was started on cefepime and vancomycin. We will follow up vancomycin trou gh and kidney function closely. Thank you, Dr. Mendoza, for allowing us to participate in the care of your patient. FAUZIA Voice ID: [id number] Report ID: [id number]
[2019-04-18] MEDS: CEFEPIME/SWI 2gm 2 GM/20 ML SYR IV SCH (12:38)
[2019-04-18] MEDS: VANCOMYCIN 2 GM in NA CHLORIDE 0.9% 500 ML IVPB SCH (12:39)
[2019-04-18] MEDS: NA CHLORIDE 0.9% 1,000 ML IV SCH (12:39)
[2019-04-18 13:08] LABS: Urine Appearance CLEAR; Urine Bilirubin NEGATIVE (NEG); Urine Blood NEGATIVE (NEG); Urine Color YELLOW; Urine Glucose TRACE (NEG); Urine Protein 1+ (NEG); Urine Urobilinogen 0.2 mg/dL (0.2-1.0); Urine pH 6.5 (5.0-7.0)
[2019-04-18 13:22] LABS: Urine Microscopic Reflex ORDER UMIC
[2019-04-18 13:28] LABS: Urine Bacteria NONE SEEN /HPF (NONE SEEN); Urine Culture Reflex Order NOT NEEDED; Urine RBC <5 /HPF (NONE SEEN)
[2019-04-18] MEDS ORDERED: HYDRALAZINE HCL 75 MG PO SCH (13:30)
[2019-04-18 13:38] LABS: Urine Protein/Creatinine Ratio 0.28 ratio (<0.15)
--- NOTE | 2019-04-18 13:42 | CON ---
Date of Consultation: 04/18/2019 Reason For Consultation: Infection of left fifth toe. History Of Present Illness: Patient is a 74-year-old gentleman who presented to the emergency room l ast night with worsening redness, pain, swelling, fever, in the left foot on the lateral aspect. He had been treated for wounds since last November secondary to pressure, by Dr. Arnett, and he had 2 wo unds, one was healed, the other one was almost healed and he was on oral antibiotics clindamycin. Ho wever, he saw Dr. Arnett last week and the wound looked good, was almost healed. Over the last 24-4 8 hours, however, increasing redness, swelling, and some discharge was noted and patient came to the emergency room. He was admitted for IV antibiotics. Workup was done and I was consulted. He is re ke and alert. No sore throat, runny nose, cough, headaches, or dizziness. No chest pain and no syst emic fever or chills at this time. Review of Systems: Otherwise unremarkable. Past Medical History: Significant for chronic kidney disease, hypertension, osteoarthritis, lymphede ma, neuropathy from diabetes, gout, obesity, obstructive sleep apnea, hyperlipidemia. Past Surgical History: Both knee replacement, cholecystectomy, hand surgery, ERCP. Allergies: NONE. Social History: Patient does not smoke or drink. Family History: Significant for heart disease in father. Physical Examination: Vital Signs: Stable. He is afebrile. He is awake, alert, oriented x3. Head and Neck: Cranial nerves 2 through 12 are grossly within normal limits. No neck masses. No JV D. Throat clear. Neck supple. Chest: Clear. Heart: S1 and S2. Abdomen: Soft. Extremities: Diminished dorsalis pedis and posterior tibial pulses. The left fifth toe, there is er ythema warmth and edema. There is an open wound about the mid toe laterally with some purulence comi ng from it. There is some fluctuance surrounding it. There is induration as well. Laboratory Data: Shows white count to be 10.5 with a left shift. INR is 0.98. Chemistry reviewed. His glucose on admission was 338. His lactic acid and procalcitonin are normal. He had a foot x-ra y done, which shows erosive changes on the distal aspect of the proximal phalanx of the fifth toe lat erally consistent with osteomyelitis. Assessment: 74-year-old gentleman with left foot fifth toe osteomyelitis with possible abscess and p eripheral vascular disease. Recommendations: We will go ahead and get an arterial Doppler to evaluate his circulation. We will keep him on antibiotics. He does need incision, drainage, and debridement of the abscess and may be some bone debridement once again to the wound, see how extensive the erosive changes are clinically, then we will institute local wound care. He will need PICC line for 6 weeks IV antibiotics. We will follow the patient while in the hospital. Plan of care was discussed with Dr. Mendoza and Dr. Arnett . Please note, patient understands the risks, benefits, and alternatives and agrees to procedure. ALLI/SERGIO Voice ID: [id number] Report ID: [id number]
[2019-04-18] MEDS ORDERED: HYDRALAZINE HCL 25 MG TABLET PO SCH (14:00)
--- NOTE | 2019-04-18 14:47 | RAD REPORT ---
EXAM DESCRIPTION: US - Lower Extremity Arterial Bilat - 04/18/2019 2:22 pm CLINICAL HISTORY: Leg pain, leg wound, peripheral vascular disease COMPARISON: None. TECHNIQUE: Bilateral brachial artery pressure measurements were obtained. Waveforms were obtained al esa the length of each lower extremity. Ankle pressure measurements were obtained with index values c alculated. Visual inspection of the lower extremity arterial tree performed. FINDINGS: Bilateral brachial artery pressure measurements are relatively symmetric. DIANNA values range from 1.06-1.13 on the right. Index values are 0.86-1.01 on the left. No toe index values could be ca lculated. Biphasic waveform pattern was seen along the length of the left lower extremity. No occlusion or flow restricting lesion identifiable. Atherosclerotic calcifications are identified in the gant. Triphasic to biphasic waveform pattern seen in the left common femoral artery distally to the midport ion left superficial femoral artery. Distal left superficial femoral artery shows a biphasic waveform pattern. This extends into the popliteal artery. Posterior tibial and dorsalis pedis arteries show m onophasic waveform patterns. No occlusion or flow restricting lesion identifiable. IMPRESSION: Bilateral peripheral vascular changes are present more pronounced on the left. No focal flow restricting lesion. Visual inspection and DIANNA values support mild lower extremity peripheral vascular disease severity.
[2019-04-18] MEDS: GLIPIZIDE S.A. 5 MG TAB PO SCH (16:39)
[2019-04-18] MEDS: HYDRALAZINE HCL 25 MG TABLET PO SCH (16:39)
[2019-04-18] MEDS ORDERED: VANCOMYCIN 1.25 GM in NA CHLORIDE 0.9% 250 ML IVPB SCH (21:00)
[2019-04-18] MEDS ORDERED: HOME MED 1 EA UNK (Glipizide [Glipizide Er] 10 MG) PO SCH (21:00)
[2019-04-18] MEDS: GABAPENTIN 300 MG CAP PO SCH (21:20)
[2019-04-19] MEDS: HYDRALAZINE HCL 25 MG TABLET PO SCH ×3 (00:01→16:56)
[2019-04-19 06:00] LABS: Absolute Lymphocytes (CBC) 1.6 K/uL (0.7-4.9); Basophils % 0.4 % (0-1.3); Hematocrit 42.2 % (39.6-49.0); Lymphocytes % 17.3 % (15.3-44.8); MPV 9.3 fL (7.6-11.3)
[2019-04-19 06:11] LABS: Albumin 3.2 g/dL (3.4-5.0); Phosphorus 3.7 mg/dL (2.5-4.9); Potassium 4.3 mmol/L (3.5-5.1); Uric Acid 5.3 mg/dL (3.5-7.2)
--- NOTE | 2019-04-19 07:27 | CON ---
Date of Consultation: 04/18/[address] Mendoza's service on 04/18/2019. I saw the patient on 04/18/2019. Reason For Consultation: Aortic stenosis and cardiac clearance for possible foot surgery that may in clude a debridement and/or amputation by Dr. Naik. History Of Present Illness: Mr. Flaherty is a 74-year-old white male he is a patient normally of Dr. Shanks. His last echocardiogram in April of 2018 showed moderate aortic stenosis. The patient came into the hospital on 04/17/2019 basically 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foot ulcers that is nonhealing with osteomyel itis. There is a plan for debridement and possible toe amputation by Dr. Naik and I was asked to cl ear him for cardiac clearance. Patient has absolutely no cardiac symptoms. Denied chest pain, short ness of breath, syncope. Denied PND, orthopnea, PND, or palpitations. Past Medical History: Include the diabetes, aortic stenosis, gastroesophageal reflux disease, psoria sis, hypertension, chronic cough. He has had bilateral knee replacement, cholecystectomy, bilateral cataract surgery and has had carpal tunnel syndrome. Family History: Noncontributory. Social History: Noncontributory. Review of Systems: Negative. Medications: Include hydralazine, Neurontin, glipizide, metoprolol, Lasix 40 mg daily, omeprazole, a llopurinol, Victoza, Ellipta inhalers, insulin, lisinopril 40 mg daily, Crestor 10 mg daily, amlodipi ne 5 mg daily, Otezla 30 mg daily. Physical Examination: General: When he came into the emergency room, his blood pressure was 140/77, with a pulse of 90, re spiratory rate of 18, temperature 98.7, his pulse ox was 96 percent. He weighs 325 pounds. Examination performed by emergency room and Dr. Mendoza apparently revealed a loud heart murmur consist ent with aortic stenosis. My impression is moderate aortic stenosis by echo in April of 2018. Dr. Vanesa dow ordered another echocardiogram for today that is pending. Patient has no cardiac symptoms. He denied chest pain, syncope, or shortness of breath. He denied any palpitations. He denied any conge stive heart failure symptoms. He is as far as I am concerned at low risk for perioperative mortality and he is clear for surgery from my standpoint. His other problems include hypertension, diabetes, dyslipidemia, asbestosis, and peripheral arterial disease are stable and he is being cared for by Dr. Naik and Dr. Mendoza. For his diabetic foot ulcer s, continue present therapy. We will continue to follow him on an as-needed basis. Patient has an a ppointment in our office early April and we will see him then. NANCY/SERGIO Voice ID: [id number] Report ID: [id number]
[2019-04-19] MEDS: INSULIN -REGULAR HUMAN 50 UNIT/0.5 ML ML SQ SCH ×4 (07:30→21:00)
[2019-04-19] MEDS: PANTOPRAZOLE 40MG TABLET PO SCH (07:30)
[2019-04-19] MEDS: GLIPIZIDE S.A. 5 MG TAB PO SCH ×2 (07:30→16:56)
[2019-04-19] MEDS: INSULIN GLARGINE 100 UNITS/ML SQ SCH (08:00)
[2019-04-19] MEDS: NA CHLORIDE 0.9% 1,000 ML IV SCH (08:00)
[2019-04-19] MEDS: APREMILAST 30 MG PO SCH (08:35)
[2019-04-19] MEDS: GABAPENTIN 300 MG CAP PO SCH (08:36)
[2019-04-19] MEDS: AMLODIPINE 5 MG TAB PO SCH (08:36)
[2019-04-19] MEDS: HEPARIN 5000 UNIT/ML 1 ML VIAL SQ SCH ×2 (08:36→16:09)
[2019-04-19] MEDS: lisinopriL 20 MG TAB PO SCH (08:36)
[2019-04-19] MEDS: INSULIN DETEMIR SQ SCH (08:36)
[2019-04-19] MEDS: ROSUVASTATIN 10 MG TAB PO SCH (08:36)
[2019-04-19] MEDS: allopurinoL 300 MG TAB PO SCH (08:37)
[2019-04-19] MEDS ORDERED: AMLODIPINE 5 MG TAB PO SCH (09:00)
[2019-04-19] MEDS ORDERED: FLUTICASONE FUROATE 100 MCG PO SCH (09:00)
[2019-04-19] MEDS ORDERED: HOME MED 1 EA UNK (Omeprazole [Prilosec] 40 MG) PO SCH (09:00)
[2019-04-19] MEDS ORDERED: lisinopriL 20 MG TAB PO SCH (09:00)
[2019-04-19] MEDS ORDERED: HOME MED 1 EA UNK (Lisinopril [Zestril] 40 MG) PO SCH (09:00)
[2019-04-19] MEDS ORDERED: FUROSEMIDE 40 MG TABLET PO SCH (09:00)
[2019-04-19] MEDS ORDERED: allopurinoL 300 MG TAB PO SCH (09:00)
[2019-04-19] MEDS ORDERED: BUPIVACAINE 0.5% PF 10 ML VIAL ONE (09:19)
[2019-04-19] MEDS ORDERED: FENTANYL CITR 100 MCG/2 ML ONE (09:26)
[2019-04-19] MEDS ORDERED: propofoL 200 MG/20 ML VIAL IV ONE (09:27)
[2019-04-19] MEDS ORDERED: LIDOCAINE 2% MPF 5 ML VIAL ONE (09:28)
--- NOTE | 2019-04-19 10:05 | RAD REPORT ---
EXAM DESCRIPTION: RAD - Chest Single View - 04/18/2019 10:06 pm CLINICAL HISTORY: PICC Placement COMPARISON: None. TECHNIQUE: XR CHEST 1 VIEW 04/18/2019 9:45 PM GRADES 1 THROUGH 6 TEACHER FINDINGS: The heart is mildly enlarged. Lungs are clear without consolidation, atelectasis, mass or edema. There is no pleural effusion. There is no pneumothorax. There are no acute osseous findings. L eft PICC line tip is in the upper SVC. IMPRESSION: Appropriate position of left PICC line. Electronically signed by: Aravind Tapia MD 04/18/2019 10:22 PM GR[facility] 1 THROUGH 6 TEACHER Due to temporary technical issues with the PACS/Fluency reporting system, reports are being signed by the in house radiologist as a courtesy to ensure prompt reporting. The interpreting radiologist is f ully responsible for the content of the report.
[2019-04-19] MEDS ORDERED: COLLAGENASE 30 GM OINTMENT TOP ONE (10:29)
--- NOTE | 2019-04-19 10:33 | P.OP ---
Preoperative diagnosis: Cellulitis and Abscess and Osteomyelitis L 5th Toe Postoperative diagnosis: same Primary procedure: Incision,Drainage, and Debridement L 5th Toe to Bone Anesthesia: General Estimated blood loss: min Specimen: C&S Findings: as above Complications: None Transferred to: Recovery Room Condition: Good
[2019-04-19] MEDS ORDERED: HYDROCODONE/APAP 5/325 MG TAB PO PRN (10:35)
[2019-04-19] MEDS: VANCOMYCIN 2 GM in NA CHLORIDE 0.9% 500 ML IVPB SCH (12:01)
[2019-04-19] MEDS: CEFEPIME/SWI 2gm 2 GM/20 ML SYR IV SCH (12:10)
--- NOTE | 2019-04-19 15:03 | P.PN ---
Subjective Date of Service: 04/19/19 Chief Complaint: Redness and swelling of left 5th toe Patient seen and examined chart reviewed and case discussed with RN and Dr. Naik. Patient went for debridement this morning did well. Pain is controlled Review of Systems 10-point ROS is otherwise unremarkable Musculoskeletal: As per HPI Physical Examination - Vital Signs Temperature: 97.3 F Blood Pressure: 147/67 Pulse: 64 Respirations: 18 Pulse Ox (%): 96 - Physical Exam General: Alert, Oriented x3, Mild distress, Obese, Other (Ill-appearing male) HEENT: Atraumatic, PERRLA, EOMI Neck: Supple, JVD not distended Respiratory: Clear to auscultation bilaterally, Normal air movement Cardiovascular: Regular rate/rhythm, Normal S1 S2, Edema, Abnormal pulses Gastrointestinal: Normal bowel sounds, Soft and benign, Non-distended, No tenderness Musculoskeletal: No tenderness Integumentary: Diabetic ulcer (Left foot 5th toe) Neurological: Normal speech, Normal strength at 5/5 x4 extr, Normal tone, Normal affect - Studies Laboratory Tests 04/18/19 04/18/19 04/18/19 01:10 01:10 01:10 WBC 10.5 RBC 4.68 Hgb 13.8 Hct 42.1 MCV 90.1 MCH 29.5 MCHC 32.8 RDW 15.6 H Plt Count 110 L MPV 9.4 Neutrophils % 85.1 H Lymphocytes % 7.2 L Monocytes % 5.7 Eosinophils % 1.4 Basophils % 0.6 Absolute Neutrophils 9.0 H Segmented Neutrophils 77 Band Neutrophils 3 H Absolute Lymphocytes 0.8 Lymphocytes 11 L Monocytes 5 Absolute Monocytes 0.6 Eosinophils 3 Absolute Eosinophils 0.1 Absolute Basophils 0.1 Reactive Lymphocytes 1 Morphology Comment Not seen PT INR APTT Sodium 136 Potassium 4.5 Chloride 104 Carbon Dioxide 26 BUN 31 H Creatinine 1.70 H Estimated GFR 40 L Glucose 338 H Lactic Acid 1.7 Calcium 8.6 Total Bilirubin 0.9 Direct Bilirubin 0.3 H AST 14 L ALT 22 Alkaline Phosphatase 94 Creatine Kinase 97 CK-MB (CK-2) 1.3 Serum Total Protein 8.0 Albumin 3.3 L Globulin 4.7 H Albumin/Globulin Ratio 0.7 L Amylase 58 Lipase 202 Procalcitonin 04/18/19 04/18/19 01:10 01:10 WBC RBC Hgb Hct MCV MCH MCHC RDW Plt Count MPV Neutrophils % Lymphocytes % Monocytes % Eosinophils % Basophils % Absolute Neutrophils Segmented Neutrophils Band Neutrophils Absolute Lymphocytes Lymphocytes Monocytes Absolute Monocytes Eosinophils Absolute Eosinophils Absolute Basophils Reactive Lymphocytes Morphology Comment PT 11.6 INR 0.98 APTT 32.7 Sodium Potassium Chloride Carbon Dioxide BUN Creatinine Estimated GFR Glucose Lactic Acid Calcium Total Bilirubin Direct Bilirubin AST ALT Alkaline Phosphatase Creatine Kinase CK-MB (CK-2) Serum Total Protein Albumin Globulin Albumin/Globulin Ratio Amylase Lipase Procalcitonin < 0.05 Microbiology Data (last 24 hrs): Wound cultures Gram stain shows beta-hemolytic strep Medications List Reviewed: Yes Assessment And Plan - Plan Assessment and plan .-: Acute osteomyelitis 5th proximal phalanx, left foot. Continue IV antibiotics. Gram stain from wound cultures showing beta hemolytic strep. Blood cultures are pending. Patient is unable to go for MRI due to shrapnel in his body. Surgery has been consulted. s/p debridement. Follow up on culture ID and sensitivity. Patient has received PICC line. Will need 6 weeks of IV antibiotics. Will set up at home. is willing to provide help and patient has done IV antibiotics at home previously. -: Chronic kidney disease, Stage 3, Nephrology-Dr. Holt has been consulted. Will continue to monitor creatinine level. avoid NSAIDs. Stable -: Essential HTN. Continue with home medications. Stable -: DM2 insulin-requiring with hyperglycemia and Neuropathy. Continue with sliding scale insulin and monitor blood glucose levels. Stable -: Chronic Lymphedema. -: Osteoarthritis generalized. Stable -: Gout. Stable -: Morbid Obesity BMI 40.1 -: Obstructive sleep apnea. -: Mixed Hyperlipidemia. Continue home medication -: GERD without esophagitis. Continue with PPI -: Psoriasis DVT prophylaxis with Lovenox 24 hr post surgery. Discharge once home IV antibiotic have been set up Discharge Plan: Home Plan to discharge in: 48 Hours - Code Status/Comfort Care Code Status Assessed: Yes
[2019-04-19] MEDS ORDERED: GABAPENTIN 300 MG CAP PO SCH (21:00)
--- NOTE | 2019-04-19 22:01 | OP ---
Date of Procedure: 04/19/2019 Surgeon: Óscar Naik MD Preoperative Diagnosis: Left 5th toe abscess, cellulitis, and osteomyelitis. Postoperative Diagnosis: Left 5th toe abscess, cellulitis, and osteomyelitis. Procedure: Incision, drainage, and debridement, left 5th toe abscess, cellulitis, and osteomyelitis to bone and subcutaneous tissue. Estimated Blood Loss: Minimal. Specimen: Culture and sensitivity of the bone and infected tissue. Findings: As above. Anesthesia: General. Complications: None. Disposition: Patient tolerated the procedure in stable condition, taken to Recovery in good general condition. Procedure In Detail: Patient was brought to the OR and placed in supine position. General anesthesi a was begun. Patient was prepped and draped in usual sterile fashion. Marcaine 0.5% was infiltrated locally. A 15-blade was used to make a 2 x 0.5 cm incision around the open wound that was present o n the lateral aspect near the border of the distal and proximal phalanx. Subcutaneous tissue was div ided. There was minimal purulence. Cultures were done. Necrotic tissue was debrided and bone was p alpated and bone was debrided with a very small rongeur as well. Wound irrigated. Bleeding controll ed with cautery. Collagenase dressing was applied. Patient tolerated the procedure in stable condition, taken to [facility] very in good general condition. /MODL Voice ID: [id number] Report ID: [id number]
[2019-04-20] MEDS: HYDRALAZINE HCL 25 MG TABLET PO SCH ×4 (00:27→23:52)
[2019-04-20] MEDS: HEPARIN 5000 UNIT/ML 1 ML VIAL SQ SCH ×4 (00:27→23:52)
[2019-04-20 06:14] LABS: Albumin 2.8 g/dL (3.4-5.0); Phosphorus 3.6 mg/dL (2.5-4.9); Potassium 4.2 mmol/L (3.5-5.1)
[2019-04-20 06:18] LABS: Absolute Lymphocytes (CBC) 0.9 K/uL (0.7-4.9); Basophils % 0.5 % (0-1.3); Hematocrit 37.5 % (39.6-49.0); Lymphocytes % 14.6 % (15.3-44.8); MPV 9.1 fL (7.6-11.3); RBC Red Blood Cell Count 4.18 M/uL (4.33-5.43)
[2019-04-20] MEDS: INSULIN -REGULAR HUMAN 50 UNIT/0.5 ML ML SQ SCH ×4 (07:30→20:52)
[2019-04-20] MEDS: INSULIN GLARGINE 100 UNITS/ML SQ SCH (08:00)
[2019-04-20] MEDS: lisinopriL 20 MG TAB PO SCH (08:37)
[2019-04-20] MEDS: AMLODIPINE 5 MG TAB PO SCH (08:37)
[2019-04-20] MEDS: ROSUVASTATIN 10 MG TAB PO SCH (08:38)
[2019-04-20] MEDS: GABAPENTIN 300 MG CAP PO SCH ×2 (08:38→20:52)
[2019-04-20] MEDS: allopurinoL 300 MG TAB PO SCH (08:39)
[2019-04-20] MEDS: APREMILAST 30 MG PO SCH (08:39)
[2019-04-20] MEDS: PANTOPRAZOLE 40MG TABLET PO SCH (08:39)
[2019-04-20] MEDS: GLIPIZIDE S.A. 5 MG TAB PO SCH ×2 (08:39→16:28)
[2019-04-20] MEDS: COLLAGENASE 30 GM OINTMENT TOP SCH (08:40)
[2019-04-20] MEDS: INSULIN DETEMIR SQ SCH (08:50)
[2019-04-20] MEDS: CEFEPIME/SWI 2gm 2 GM/20 ML SYR IV SCH (10:33)
--- NOTE | 2019-04-20 11:50 | PN ---
Date of Progress Note: 04/20/2019 Patient is awake, alert, no complaint. Vital signs stable, afebrile. Laboratory data reviewed. Cultures are pending. Examination of the left fifth toe reveals cellulitis and edema to be much better in the forefoot. Th ere is still redness of the left 5th toe. There is no purulent discharge. There is no fluctuance, m ild edema. Assessment: Status post incision and drainage and debridement of left fifth toe, abscess and osteomy elitis. Recommendations: Continue IV antibiotics. Check cultures and adjust antibiotics, discharge planning . Wound care are ordered. Follow up in the wound healing center upon discharge and my clinic. /MODL Voice ID: [id number] Report ID: [id number]
--- NOTE | 2019-04-20 12:35 | PN ---
Date of Progress Note: 04/20/2019 Subjective: Patient is seen and examined. Chart reviewed and case discussed with RN and Dr. Naik. Patient is doing significantly better. He does not report any pain in his foot. Overall improving. Medications: List reviewed. Physical Examination: Vital Signs: Temperature 97.1, heart rate 79, blood pressure 140/71, respirations 16, O2 of 97% on r oom air. General: Awake, alert, oriented x3, not in any acute distress, ill elderly male, morbidly obese. BM I 40. CV: S1, S2. Regular rate and rhythm. Peripheral pulses weak. Respiratory: Moving air well bilaterally. No wheezing or stridor. No use of accessory muscles. Gastrointestinal: Abdomen is soft, nontender, nondistended. Positive bowel sounds. Extremities: No clubbing, cyanosis. Patient has mild edema of the left foot. Neurologic: Nonfocal. Skin: Patient has erythema of the left 5th toe, as well as the dorsum of the foot improving. Foot u lcer is present with no drainage. Laboratory Data: Sodium 142, potassium 4.2, chloride 106, CO2 of 30, BUN 18, creatinine 1.81, glucos e 94, calcium 8.6, phosphorus 3.6, albumin 2.8. WBC 6.1, H and H 12.5 and 37.5, platelets 108, neutr ophils 71%. Blood cultures, no growth to date. Wound cultures growing 2+ beta-hemolytic strep. Assessment: A 74-year-old male with; 1.Acute osteomyelitis, 5th proximal phalanx, left foot. We will continue IV antibiotics. Wound cul tures growing beta-hemolytic strep. Blood cultures, no growth to date. We will continue with IV ant ibiotics. Follow up on final culture and sensitivity 6 weeks total. We will set up at home once ID and sensitivity is return. 2.Chronic kidney disease, stage 3. Creatinine is improved. We will continue to monitor. Avoid NSA IDs. Appreciate Nephrology input. 3.Essential hypertension. We will continue home medications, stable. 4.Diabetes mellitus type 2, insulin requiring with hyperglycemia neuropathy. Continue with sliding scale insulin. Patient has had some low blood sugars in the 90s to low 100s, which is low for him. We will adjust insulin dose. 5.Chronic lymphedema. 6.Osteoarthritis generalized. 7.Gout, stable. 8.Morbid obesity, BMI 40. 9.Obstructive sleep apnea. 10.Mixed hyperlipidemia. Continue statin. 11.Gastroesophageal reflux disease without esophagitis. Continue PPI. 12.Psoriasis. 13.Deep vein thrombosis prophylaxis. Patient is on heparin. Plan: Discharge once cultures resulted and IV antibiotics have been set up for home. /SERGIO Voice ID: [id number] Report ID: [id number]
[2019-04-20] MEDS: VANCOMYCIN 2 GM in NA CHLORIDE 0.9% 500 ML IVPB SCH (12:41)
[2019-04-20] MEDS ORDERED: ALTEPLASE 2 MG/VIAL IV ONE (13:00)
--- NOTE | 2019-04-20 14:19 | P.PN ---
Subjective Date of Service: 04/20/19 Chief Complaint: Redness and swelling of left 5th toe Subjective 74-year-old with DM, CKD III baseline Cr ~1.5 presented for Lt foot ulcer , Cr 1.7 in admission Today no overnight events VS stable Cr down to 1.2 will start Po lasix pending bone culture results Past Medical History Psoriasis., CKD III, DM , Past Surgical History: Includes joint replacement, cholecystectomy, hand surgery. Allergies: NO KNOWN DRUG ALLERGIES. Family History: Positive for coronary artery disease. Social History: Denies smoking, denies drinking, denies drugs abuse. Physical exam general: AAOX3, NAD , obese Neck; Supple, No elevated JVD hear: RRR, normal S1,2 no murmur or rub Chest: CTAB, no rlaes or wheezes Abdomen: Soft , Nt Extremities Rt foot trace edema, Lt foot dressing A/P Vicki on CKD III resolved will restart lasix Cont lisinopril Monitor Vanco level HTN controlled Diabetes As by primary. lt foot ulcer S/p I&D and debridment F/U bone culture Monitor Vanco level Wound care Physical Examination - Vital Signs Temperature: 97.1 F Blood Pressure: 142/65 Pulse: 86 Respirations: 16 Pulse Ox (%): 97 - Studies Medications List Reviewed: Yes
[2019-04-20] MEDS ORDERED: WATER FOR INJ,STERILE 10 ML ONE (16:41)
[2019-04-21 07:06] LABS: Magnesium 1.9 mg/dL (1.8-2.4); Phosphorus 3.3 mg/dL (2.5-4.9); Potassium 4.2 mmol/L (3.5-5.1)
[2019-04-21] MEDS: INSULIN -REGULAR HUMAN 50 UNIT/0.5 ML ML SQ SCH ×4 (07:30→21:32)
[2019-04-21] MEDS: INSULIN GLARGINE 100 UNITS/ML SQ SCH (08:55)
[2019-04-21] MEDS: PANTOPRAZOLE 40MG TABLET PO SCH (08:57)
[2019-04-21] MEDS: allopurinoL 300 MG TAB PO SCH (08:58)
[2019-04-21] MEDS: lisinopriL 20 MG TAB PO SCH (08:58)
[2019-04-21] MEDS: AMLODIPINE 5 MG TAB PO SCH (08:58)
[2019-04-21] MEDS: GLIPIZIDE S.A. 5 MG TAB PO SCH ×2 (08:58→16:55)
[2019-04-21] MEDS: GABAPENTIN 300 MG CAP PO SCH ×2 (08:59→21:31)
[2019-04-21] MEDS: APREMILAST 30 MG PO SCH (09:00)
[2019-04-21] MEDS: HEPARIN 5000 UNIT/ML 1 ML VIAL SQ SCH ×2 (09:00→16:56)
[2019-04-21] MEDS: FUROSEMIDE 40 MG TABLET PO SCH (09:08)
[2019-04-21] MEDS: ROSUVASTATIN 10 MG TAB PO SCH (09:09)
[2019-04-21] MEDS: HYDRALAZINE HCL 25 MG TABLET PO SCH ×2 (09:09→16:55)
[2019-04-21] MEDS: CEFEPIME/SWI 2gm 2 GM/20 ML SYR IV SCH (10:57)
--- NOTE | 2019-04-21 11:49 | PN ---
Date of Progress Note: 04/21/2019 Subjective: Patient is awake, alert. No complaint. Objective: Vital Signs: Stable. Afebrile. Dressing is clean, dry, and intact. Assessment: Status post left 5th toe. Incision and drainage, debridement of an abscess, cellulitis, and osteomyelitis. Recommendations: Cultures are growing out strep, both sensitivities were reviewed with Dr. Mendoza. Yvan daley on his kidney functions appropriate antibiotics will be ordered. Discharge planning is in progr ess. Wound care is ordered. Follow up in the [facility] in my clinic. /MODL Voice ID: [id number] Report ID: [id number]
[2019-04-21] MEDS: COLLAGENASE 30 GM OINTMENT TOP SCH (11:51)
[2019-04-21] MEDS: VANCOMYCIN 2 GM in NA CHLORIDE 0.9% 500 ML IVPB SCH (11:52)
--- NOTE | 2019-04-21 11:54 | PN ---
Date of Progress Note: 04/21/2019 Subjective: Patient is seen and examined. Chart reviewed and case discussed with RN and Dr. Naik. Patient is doing well overall, was unable to get much sleep due to personal coming in and out of his room. Medications: List reviewed. Code Status: Full. Physical Examination: Vital Signs: Temperature 97.5, heart rate 75, blood pressure 149/67, respirations 18, O2 of 98% on room air. General: Awake, alert, oriented x3. Morbidly obese male, not in any acute distress. CV: S1, S2. Regular rate and rhythm. Peripheral pulses weak. Respiratory: Moving air well bilaterally. No wheezing or stridor. Gastrointestinal: Abdomen is soft, nontender, nondistended. Positive bowel sounds. Extremities: No clubbing, cyanosis, or edema. Neuro: Nonfocal. Skin: Left foot bandaged. Incision site clean, dry, intact. Minimal swelling. Laboratory Data: Sodium 142, potassium 4.2, chloride 106, CO2 of 28, BUN 17, creatinine 1.21, glucose 121, calcium 8.5, phosphorus 3.3, magnesium 1.1, albumin 3. WBC 6.1, H and H 12.5 and 37.5, platelets 108, neutrophils 71%. Blood culture show no growth. Left foot wound culture growing out Streptococcus agalactiae, sensitive to Levaquin, penicillin, and vancomycin. Assessment: A 74-year-old male with: 1. Acute osteomyelitis, 5th proximal phalanx, left foot, status post incision and drainage. Cultures growing out Streptococcus agalactiae. We will continue with IV antibiotics. Blood culture show no growth to date. Patient will need IV antibiotics for a total of 6 weeks. PICC line is in place. 2. Chronic kidney disease, stage 3. Creatinine is improved. We will continue to monitor. Avoid NSAIDs. Appreciate Nephrology input. 3. Essential hypertension, stable. 4. Diabetes mellitus type 2, insulin requiring with hyperglycemia and neuropathy. We will continue sliding scale insulin. Monitor blood glucose levels. Insulin dose was adjusted due to sugar in the low 100; however, patient feeling jittery. 5. Chronic lymphedema. 6. Generalized osteoarthritis. 7. Gout, stable. 8. Morbid obesity, BMI 40. 9. Obstructive sleep apnea. 10. Mixed hyperlipidemia. Continue statin. 11. Gastroesophageal reflux disease without esophagitis. Continue PPI. 12. Psoriasis. 13. Deep venous thrombosis prophylaxis. Continue with heparin. Plan: Discontinue once IV antibiotics have been arranged at home. /SERGIO Voice ID: [id number] Report ID: [id number] MTDD
--- NOTE | 2019-04-21 12:58 | P.PN ---
Subjective Date of Service: 04/21/19 Chief Complaint: Redness and swelling of left 5th toe Subjective 74-year-old with DM, CKD III baseline Cr ~1.5 presented for Lt foot ulcer , Cr 1.7 in admission Today no overnight events VS stable Cr down to 1.2 pending bone culture results Monitor VAnco level Past Medical History Psoriasis., CKD III, DM , Past Surgical History: Includes joint replacement, cholecystectomy, hand surgery. Allergies: NO KNOWN DRUG ALLERGIES. Family History: Positive for coronary artery disease. Social History: Denies smoking, denies drinking, denies drugs abuse. Physical exam general: AAOX3, NAD , obese Neck; Supple, No elevated JVD hear: RRR, normal S1,2 no murmur or rub Chest: CTAB, no rlaes or wheezes Abdomen: Soft , Nt Extremities Rt foot trace edema, Lt foot dressing A/P Vicki on CKD III resolved will restart lasix Cont lisinopril Monitor Vanco level HTN controlled Diabetes As by primary. lt foot ulcer S/p I&D and debridment F/U bone culture Monitor Vanco level Wound care Physical Examination - Vital Signs Temperature: 97.5 F Blood Pressure: 120/66 Pulse: 89 Respirations: 18 Pulse Ox (%): 96 - Studies Medications List Reviewed: Yes
[2019-04-22] MEDS: HEPARIN 5000 UNIT/ML 1 ML VIAL SQ SCH ×3 (00:37→16:42)
[2019-04-22] MEDS: HYDRALAZINE HCL 25 MG TABLET PO SCH ×3 (00:38→16:41)
[2019-04-22 04:14] LABS: Basophils % 0.7 % (0-1.3); Hematocrit 37.6 % (39.6-49.0); MPV 8.8 fL (7.6-11.3); RBC Red Blood Cell Count 4.24 M/uL (4.33-5.43)
[2019-04-22 04:39] LABS: Albumin 2.9 g/dL (3.4-5.0); Phosphorus 3.6 mg/dL (2.5-4.9); Potassium 3.8 mmol/L (3.5-5.1)
[2019-04-22] MEDS ORDERED: POTASSIUM CL SA 10 MEQ TAB PO ONE (04:46)
[2019-04-22 06:47] VITALS: BMI 39.6
[2019-04-22] MEDS: INSULIN -REGULAR HUMAN 50 UNIT/0.5 ML ML SQ SCH ×3 (07:30→16:41)
[2019-04-22] MEDS: INSULIN GLARGINE 100 UNITS/ML SQ SCH (08:07)
[2019-04-22] MEDS: PANTOPRAZOLE 40MG TABLET PO SCH (08:08)
[2019-04-22] MEDS: GABAPENTIN 300 MG CAP PO SCH (08:08)
[2019-04-22] MEDS: GLIPIZIDE S.A. 5 MG TAB PO SCH ×2 (08:08→16:41)
[2019-04-22] MEDS: lisinopriL 20 MG TAB PO SCH (08:09)
[2019-04-22] MEDS: allopurinoL 300 MG TAB PO SCH (08:09)
[2019-04-22] MEDS: AMLODIPINE 5 MG TAB PO SCH (08:10)
[2019-04-22] MEDS: ROSUVASTATIN 10 MG TAB PO SCH (08:10)
[2019-04-22] MEDS: FUROSEMIDE 40 MG TABLET PO SCH (08:10)
[2019-04-22] MEDS: APREMILAST 30 MG PO SCH (08:11)
--- NOTE | 2019-04-22 09:31 | ECHO ---
HEIGHT: 6 ft 8 in WEIGHT: 360 lb 12.8 oz DATE OF STUDY: 04/19/[address]: Inder Mendoza MD 2-DIMENSIONAL: YES M.MODE: YES DOPPLER: YES COLOR FLOW: YES TDS: PORTABLE: DEFINITY: BUBBLE STUDY: DIAGNOSIS: MURMUR CARDIAC HISTORY: CATHERIZATION: SURGERY: PROSTHETIC VALVE: PACEMAKER: MEASUREMENTS (cm) DIASTOLIC (NORMALS) SYSTOLIC (NORMALS) IVSd 1.3 (0.6-1.2) LA Diam 4.5 (1.9-4.0) LVEF 66% LVIDd 4.3 (3.5-5.7) LVIDs 2.8 (2.0-3.5) %FS 36% LVPWd 1.2 (0.6-1.2) Ao Diam 3.1 (2.0-3.7) 2 DIMENSIONAL ASSESSMENT: RIGHT ATRIUM: NORMAL LEFT ATRIUM: DILATED RIGHT VENTRICLE: NORMAL LEFT VENTRICLE: NORMAL TRICUSPID VALVE: NORMAL MITRAL VALVE: NORMAL PULMONIC VALVE: NORMAL AORTIC VALVE: STENOTIC PERICARDIAL EFFUSION: NONE AORTIC ROOT: NORMAL LEFT VENTRICULAR WALL MOTION: NORMAL DOPPLER/COLOR FLOW: 1.5 CENTIMETERS SQUARED AROTIC STENOSIS MODERATE COMMENTS: MODERATE AORTIC STENOSIS 1.5 CEMTIMETERS SQUARED. NORMAL LEFT VENTRICULAR SIZE AND FUNCTION. NO WALL MOTION ABNORMALITY. NO EFFUSION. LEFT ATRIAL ENLARGEMENT. TECHNOLOGIST: SOPHIA CERON
[2019-04-22] MEDS: CEFEPIME/SWI 2gm 2 GM/20 ML SYR IV SCH (11:25)
[2019-04-22] MEDS: COLLAGENASE 30 GM OINTMENT TOP SCH (11:26)
[2019-04-22] MEDS: VANCOMYCIN 2 GM in NA CHLORIDE 0.9% 500 ML IVPB SCH (11:27)
--- NOTE | 2019-04-22 14:30 | PN ---
Date of Progress Note: 04/22/2019 Subjective: Patient is without complaints. Objective: Vital Signs: Stable. Afebrile. Cultures that were done before surgery are growing a strep sensitive to vancomycin and Levaquin, andre jaqueline the OR cultures were still pending. Examination of the wound reveals that the edema to be hopefully decrease minimal erythema. Wounds cl loren. There is no purulence. Assessment: Status post incision and drainage and debridement of left fifth toe osteomyelitis, absce ss, and cellulitis. Recommendations: Discharge planning for social work. IV antibiotics and wound care ordered. Follow up in the wound healing center upon discharge. /MODL Voice ID: [id number] Report ID: [id number]
--- NOTE | 2019-04-22 14:39 | DS ---
Consultants: 1.Dr. Naik with General Surgery. 2.Dr. Camp and Dr. Holt with Nephrology. 3.Dr. Be with Cardiology. Procedures: On 04/19/[address] Naik. Incision, drainage, and debridement of the left 5th toe to the bone. Admitting Diagnoses: 1.Diabetic toe ulcer. 2.Chronic kidney disease stage 3. 3.Essential hypertension. 4.Obstructive sleep apnea. 5.Diabetes mellitus type 2 with long-term use of insulin with hyperglycemia and skin infection. Discharge Diagnoses: 1.Acute osteomyelitis, 5th proximal phalanx, left foot, status post incision and drainage with cultu res positive for Streptococcus agalactiae. 2.Chronic kidney disease, stage 3. Creatinine is improved. 3.Essential hypertension, stable. 4.Diabetes mellitus type 2, insulin requiring with hyperglycemia, neuropathy, and skin infection. S table on insulin. 5.Chronic lymphedema. 6.Generalized osteoarthritis. 7.Gout, stable. 8.Morbid obesity, BMI 40. 9.Obstructive sleep apnea. 10.Mixed hyperlipidemia, on statin. 11.Gastroesophageal reflux disease without esophagitis, stable. 12.Psoriasis, stable. 13.Moderate aortic stenosis. Hospital Course: Patient is a 74-year-old male with history of diabetes mellitus type 2, on insulin therapy; history of previous osteomyelitis and diabetic foot infections, comes in with chronic left 5 th toe wound, which was acutely worsened, draining, and failed outpatient treatment with oral clindam ycin. Patient's blood cultures were obtained. He was started on broad-spectrum IV antibiotics with vancomycin and cefepime. Wound cultures were also obtained, which grew out Streptococcus agalactiae sensitive to Levaquin, penicillin, and vancomycin. Patient does report intolerance to Levaquin due t o history of interstitial nephritis in the past. Patient was seen by Dr. Naik who took the patient for the procedure as mentioned above. Patient did well postoperatively. His wound started with bett er erythema improved. His x-ray did show osteomyelitis in the proximal phalanx. He is unable to obt ain MRI due to shrapnel in his body from when he was at [employer]. He is a . Patient had a n echocardiogram also done due to history of aortic stenosis, shows moderate aortic stenosis. He was cleared for surgery prior to start of the procedure by Dr. Be who is familiar with him. Suman guerrier overall did well. He was also seen by Nephrology due to his chronic kidney disease. His kidney fu nction improved. He does have stage 3 chronic kidney disease. Once his cultures also are back, he w as set up with IV antibiotics long-term for minimum of 6 weeks due to osteomyelitis. This patient fa ils IV antibiotic therapy, then will need an amputation of that 5th toe. Patient had a PICC line carmen елена and he has been on IV antibiotics at home previously. He is familiar with infusing antibiotics. He was set up through [facility]. Teaching was done. will also be aiding him in infusio n therapy. Patient was then discharged once IV antibiotics were set up. Condition: Stable. Medications: As per medication reconciliation list. Diet: Diabetic. Followup: Follow up with PCP in 2 to 3 days. Follow up with surgeon, Gumaro for wound care in 7 to 1 0 days. Return to ER for worsening condition. Wound care instructions as per Dr. Naik. Patient to finish of the course of IV antibiotics with vancomycin for a total of 6 weeks. Patient to have week ly CBC, CMP, ESR, and CRP labs to be followed by his primary care physician. Vancomycin dose to be a djusted renally. Patient to follow up with his representative government relations, Dr. Holt in 2 weeks. PICC line car e has been ordered through home health care and PICC line is to be discontinued once IV antibiotics h ave been completed. Physical Examination: General: Awake, alert, oriented x3. Elderly male, not in any acute distress. CV: S1, S2. Respiratory: Moving air well bilaterally. Abdomen: Soft, nontender, nondistended. Positive bowel sounds. Extremities: No clubbing, cyanosis, or edema. Patient has edema of the left foot. Skin: Erythema of the dorsum of the foot along with the 5th toe diabetic wound. No drainage is impr naima. Neurologic: Nonfocal. Patient has decreased sensation to light touch in lower extremities. Time Spent: Total time spent discharging the patient was 43 minutes. /SERGIO Voice ID: [id number] Report ID: [id number]
[2019-04-22 17:01] VITALS: O2SAT 98
[2019-04-22 17:18] VITALS: BP 155/67; TEMP 97.4
--- NOTE | 2019-04-22 23:40 | PN ---
Date of Progress Note: 04/22/2019 Chief Complaint: Acute kidney injury on chronic kidney disease stage 3. History Of Present Illness: Patient has history of diabetes mellitus, diabetic kidney disease, basel ine creatinine 1.5. He presented to the hospital because of left lower extremity infection, diabetic foot infection. On admission, creatinine was up to 1.7. Patient has prerenal azotemia. Patient re sponded to hydration. Patient was started on vancomycin and had tests done to monitor vancomycin tro ugh level. Review of Systems: Denies fevers or chills. Physical Examination: Lungs: Clear to auscultation bilaterally. Heart: S1, S2. Abdomen: Soft, benign. Extremities: Minimal edema. Impression And Plan: 1.Acute on chronic kidney injury, diabetic kidney disease, hypertensive kidney disease. Patient clara l continue adequate hydration. He was instructed to avoid nonsteroidal anti-inflammatory medication. 2.Prerenal azotemia due to renal hypoperfusion. Patient responded to hydration. Continue to monito r fluid balance. Renal function has improved. Creatinine level today is 1.2 and BUN 16. Electrolyt es stable. 3.Hypoalbuminemia. Patient will have further workup outpatient for proteinuria. During this admiss ion urinalysis did not show active urinary sediment and urine creatinine ratio was 0.28, which corresponds with mild overt proteinuria. EB/MODL Voice ID: [id number] Report ID: [id number]
== END 2019-04-22 17:39 | disposition home health service (06) | DRG 982 ==
LOC: ER 23:39 → ERHOLD 04-18 04:16 → 2ND 04-18 07:53 → 4TH 04-18 17:04
PROVIDERS: ADMIT Internal Medicine; ATTEND Internal Medicine
PROC: 02HV33Z Insertion of Infusion Device into Superior Vena Cava, Percutaneous Approach (ICD-10-PCS; 2019-04-18)
PROC: 0QDR0ZZ Extraction of Left Toe Phalanx, Open Approach (ICD-10-PCS; principal; 2019-04-19 10:15)
DX: E11.69 Type 2 diabetes mellitus with other specified complication (principal); M86.172 Other acute osteomyelitis, left ankle and foot; E11.65 Type 2 diabetes mellitus with hyperglycemia; B95.4 Other streptococcus as the cause of diseases classified elsewhere; I12.9 Hypertensive chronic kidney disease with stage 1 through stage 4 chronic kidney disease, or unspecified chronic kidney disease; E11.22 Type 2 diabetes mellitus 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chronic kidney disease; N18.3 Chronic kidney disease, stage 3 (moderate); I89.0 Lymphedema, not elsewhere classified; M15.9 Polyosteoarthritis, unspecified; M10.9 Gout, unspecified; Z68.39 Body mass index [BMI] 39.0-39.9, adult; G47.33 Obstructive sleep apnea (adult) (pediatric); E78.2 Mixed hyperlipidemia; K21.9 Gastro-esophageal reflux disease without esophagitis; L40.9 Psoriasis, unspecified; I35.0 Nonrheumatic aortic (valve) stenosis; E66.01 Morbid (severe) obesity due to excess calories; Z96.653 Presence of artificial knee joint, bilateral; E11.40 Type 2 diabetes mellitus 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neuropathy, unspecified; N17.9 Acute kidney failure, unspecified
CPT/HCPCS: 36415; 71045; 80048; 80069; 80076; 80202; 81003; 81015; 82150; 82550; 82553; 82570; 82947; 83605; 83690; 83735; 84145; 84156; 84550; 85025; 85610; 85730; 87040; 87070; 87075; 87077; 87186; 87205; 88304; 88312; 93306; 93925; 94760; 96365; 96366; 96375; 99285; J0692; J0696; J1644; J1815; J2543; J2704; J2997; J3010; J3590; J7030; J7040

== ENCOUNTER 2021-07-29 12:00 | Day surgery (SDC) | payer OTHER ==
[2021-07-28 15:20] LABS: Absolute Lymphocytes (CBC) 1.1 K/uL (0.7-4.9); Hematocrit 41.3 % (39.6-49.0); Lymphocytes % 17.2 % (15.3-44.8); MPV 8.9 fL (7.6-11.3); RBC Red Blood Cell Count 4.61 M/uL (4.33-5.43)
[2021-07-28 15:23] LABS: Protime INR 1.01
[2021-07-28 15:30] LABS: Potassium 4.3 mmol/L (3.5-5.1)
--- NOTE | 2021-07-28 15:51 | RAD REPORT ---
EXAM DESCRIPTION: RAD - Chest Pa And Lat (2 Views) - 07/28/2021 2:37 pm CLINICAL HISTORY: pre procedure COMPARISON: Chest Single View dated 04/18/2019; Abdomen Acute Series dated 01/03/2016; Chest Pa And La t (2 Views) dated 09/28/2015; CHEST PA AND LAT 2 VIEW dated 07/04/2013 FINDINGS: Lines: None. Lungs: No evidence of edema or pneumonia. Pleural: No significant pleural effusions or pneumothorax. Cardiac: The heart size is within normal limits. Bones: No acute fractures. Other: IMPRESSION: No acute cardiopulmonary disease.
[2021-07-29] MEDS ORDERED: HEPARIN 5000 UNIT/ML 1 ML VIAL ONE (13:18)
[2021-07-29] MEDS ORDERED: VERAPAMIL HCL 10 MG/4 ML VIAL IV ONE (13:18)
[2021-07-29] MEDS ORDERED: MIDAZOLAM HCL 2 MG/2 ML INJ ONE (13:18)
[2021-07-29] MEDS ORDERED: FENTANYL CITR 100 MCG/2 ML ONE (13:18)
[2021-07-29] MEDS ORDERED: CLOPIDOGREL 75 MG TABLET ONE (13:19)
[2021-07-29] MEDS ORDERED: ASPIRIN 325 MG TAB ONE (13:19)
[2021-07-29] MEDS ORDERED: HEPARIN 10,000 UNIT/10 ML VIAL IV ONE (13:19)
[2021-07-29] MEDS ORDERED: TICAGRELOR 90 MG TABLET PO ONE (13:19)
[2021-07-29] MEDS ORDERED: NA CHLORIDE 0.9% 500 ML ONE (13:20)
--- NOTE | 2021-07-29 13:47 | EKG ---
Test Date: 2021-07-28 Test Time: 14:33:22 Interventionist: MEASUREMENT RESULTS: Intervals: Rate: 72 KS: 234 QRSD: 114 QT: 398 QTc: 435 [place]: P: 19 KS: 234 QRS: -31 T: 91 INTERPRETIVE STATEMENTS: Sinus rhythm with 1st degree AV block Left axis deviation Incomplete left bundle branch block Left ventricular hypertrophy with repolarization abnormality Abnormal ECG Compared to ECG 05/19/2012 14:23:35 First degree AV block now present Left-axis deviation now present Left bundle-branch block now present Left ventricular hypertrophy now present Early repolarization now present Electronically Signed On 07-29-21 13:45:26 CDT by Nawaf Dotson
[2021-07-29] MEDS ORDERED: LIDOCAINE 1% 20 ML MDV ONE (14:04)
[2021-07-29] MEDS ORDERED: HEPA 1000U/500MLS 2,000 UNIT/1,000 ML BAG IV ONE (14:27)
[2021-07-29 16:23] VITALS: BP 124/58; O2SAT 94
--- NOTE | 2021-07-30 01:16 | OP ---
Date of Procedure: 07/29/2021 Surgeon: RAMIRO REVELES Indications For Procedure: Severe aortic valve stenosis before aortic valve replacement. Access: Right radial artery 6-Trinidadian closed with TR band. Complications: None. Estimated Blood Loss: Bleeding less than 10 mL. Anesthesia: Total sedation time was 20 minutes, used fentanyl and Versed. Description Of Procedure: After risks, benefits, alternatives were explained, the patient agreed to proceed and signed informed consent. The patient was brought into the cardiac catheterization labora tory, prepped and draped in sterile fashion. Then I accessed right radial artery using pediatric reyna ropuncture kit. I placed a 6-Trinidadian slender sheath and took a 5-Trinidadian [place] 4.0 catheter in the aor tic root, engaged the left main and right coronary artery, took standard views and then removed the c atheter and sheath and placed TR band with good hemostasis. Findings: 1.Left main, very large and normal. 2.LAD, large vessel with luminal irregularities with no significant disease. The diagonal branches are normal. 3.Left circumflex, this is a large codominant vessel with OM having diffuse 20% stenosis. 4.RCA, large codominant with luminal irregularities and in the right PLB there is 40% stenosis in th e midsection and luminal irregularities of the PDA. Conclusion: Mild nonsignificant coronary artery disease. Plan: To proceed with TAVR as planned earlier. SR/MODL Voice ID: [id number] Report ID: [id number]
== END 2021-07-29 16:45 | disposition home or self-care (01) ==
LOC: CCL 12:00
PROVIDERS: ATTEND Internal Medicine
DX: I35.0 Nonrheumatic aortic (valve) stenosis (principal); I25.10 Atherosclerotic heart disease of native coronary artery without angina pectoris; R01.1 Cardiac murmur, unspecified; I44.0 Atrioventricular block, first degree; I44.7 Left bundle-branch block, unspecified; Z20.822 Contact with and (suspected) exposure to COVID-19
CPT/HCPCS: 93005; 85025; 80048; 36415; 85610; 85730; 71046; 93454; U0003; C1893; Q9966; J1644 ×2; J2250; J3010; J7040; 71045

== ENCOUNTER 2021-08-16 13:00 | Day surgery (SDC) | payer OTHER ==
[2021-08-13 14:33] LABS: Hematocrit 41.8 % (39.6-49.0)
[2021-08-13 14:38] LABS: Potassium 4.8 mmol/L (3.5-5.1)
[2021-08-13 15:52] LABS: Protime INR 0.96
[2021-08-13 16:48] LABS: Absolute Lymphocytes (CBC) 1.5 K/uL (0.7-4.9); Lymphocytes % 19.5 % (15.3-44.8); MPV 9.3 fL (7.6-11.3); RBC Red Blood Cell Count 4.62 M/uL (4.33-5.43)
[~2021-08-16 13:00] MED LIST: ATROPINE SULF 1 MG/10 ML SYR IV ONE; FENTANYL CITR 100 MCG/2 ML ONE; HEPA 1000U/500MLS 0 UNIT/0 ML BAG IV ONE; HEPA 1000U/500MLS 2,000 UNIT/1,000 ML BAG IV ONE; LIDOCAINE 1% 20 ML MDV ONE; MIDAZOLAM HCL 2 MG/2 ML INJ ONE; NA CHLORIDE 0.9% 500 ML ONE
--- NOTE | 2021-08-16 14:44 | OP ---
Date of Procedure: 08/16/2021 Surgeon: RAMIRO REVELES Procedure Performed: Bilateral selective coronary carotid angiogram. Indications: Severe carotid stenosis by Doppler as workup for TAVR. Access: Right femoral artery 4-Colombian closed with manual pressure. Complications: None. Anesthesia: Total sedation time was 25 minutes. Bleeding: Less than 10 mL. Description Of Procedure: After risks, benefits, and alternatives were explained, the patient agreed to procedure and signed informed consent. The patient was brought into the cardiac catheterization laboratory, prepped and draped in the usual sterile fashion. Then, I used fentanyl and Versed in inc remental doses to achieve adequate moderate sedation. Then, I accessed right femoral artery using mi cropuncture kit and ultrasound as well as fluoroscopy guidance, placed 4-Colombian [place] sheath, and took 4-Colombian JR4 catheter into the aortic root and then into the brachiocephalic artery and then sandy ectively engaged the right common carotid artery and took standard views and then selectively engaged the left common carotid artery and took standard views. Then, I removed the catheter and the sheath was removed. Manual pressure was used for hemostasis. Findings: 1.Right common carotid artery is clean of disease. 2.Right internal carotid artery in the proximal segment is 50% stenosis. Otherwise, it is normal. Normal right external carotid artery. 3.Left common carotid artery is normal. 4.Left internal carotid artery is ostial 90% stenosis and the left external carotid artery appears n ormal. Conclusion: 1.Severe ostial left internal carotid artery stenosis. 2.Moderate right carotid artery stenosis. Plan: Refer for endarterectomy by CT Surgery. SR/MODL Voice ID: [id number] Report ID: [id number]
[2021-08-16 16:56] VITALS: BP 148/59; O2SAT 95
== END 2021-08-16 16:58 | disposition home or self-care (01) ==
LOC: CCL 13:00
PROVIDERS: ATTEND Internal Medicine
DX: I65.23 Occlusion and stenosis of bilateral carotid arteries (principal); I35.2 Nonrheumatic aortic (valve) stenosis with insufficiency; I10 Essential (primary) hypertension; E11.9 Type 2 diabetes mellitus without complications; E78.5 Hyperlipidemia, unspecified; E66.01 Morbid (severe) obesity due to excess calories; Z68.41 Body mass index [BMI] 40.0-44.9, adult; Z79.899 Other long term (current) drug therapy; Z20.822 Contact with and (suspected) exposure to COVID-19; Z87.891 Personal history of nicotine dependence; Z82.49 Family history of ischemic heart disease and other diseases of the circulatory system
CPT/HCPCS: 85025; 80048; 36415; 85610; 82947 ×2; 85730; 36222; U0003; C1893; J2250; J3010; J7040; J1644

== ENCOUNTER 2022-01-10 11:15 | Inpatient (IN) | payer OTHER ==
--- OUTSIDE RECORDS SUMMARY | 2022-01-10 11:24 | XMS REPORT | Continuity of Care Document ---
:1945 Author Organization [facility] t Address [address] [place] [address] Care Team Providers Name Role Phone Yann Diaz Attending Clinician Unavailable LILIAN DELEON Attending Clinician Unavailable Antonino BARTHOLOMEW, Maryse Attending Clinician Unavailable Diya Rivera RN Attending Clinician Unavailable LILIAN DELEON Attending Clinician Unavailable Lilian Deleon MD Attending Clinician [phone] eGovani Canales MD Attending Clinician Kartik Killian MD Attending Clinician [phone] KARTIK KILLIAN Attending Clinician Unavailable Blayne BARTHOLOMEW, Bernarda Garrison Attending Clinician [phone] Neetu Shah Attending Clinician Unavailable Sam Paredes Attending Clinician ILLIAN DELEON Admitting Clinician Unavailable Yann Diaz Admitting Clinician Unavailable Payers Payer Name Policy Type Policy Number Effective Date Expiration Date S soren MEDICARE PART A [id number] \T\ B - MEDICARE GENERIC [facility] [id number] 2021 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 00:00:00 [facility] [id number] 2021 2021 SUPPLEMENTAL 00:00:00 00:00:00 MEDICARE [facility] [id number] [facility] AENA C1 [id number] [facility] [id number] [facility] AETNA C1 [id number] [facility] MEDICARE NOVITAS MB [id number] [facility] AENA [id number] [facility] Problems Condition Condition Condition Status Onset Resolution Last Treating Co mments Source Name Details Category Date Date Treatment Clinician Date LBBB (left LBBB (left Disease Active [facility] bundle bundle 9-15 College branch branch 00:00: of block) block) 00 Medicin post TAVR post TAVR e Essential Essential Disease Active [facility] hypertensi hypertensi 09-29 [facility] on, benign on, benign 00:00: Me dical 00 [place] Bilateral Bilateral Disease Active [facility] carotid carotid 09-29 [facility] artery artery 00:00: Medical disease disease 00 Center CKD CKD Disease Active [facility] (chronic (chronic 09-29 [facility] kidney kidney 00:00: Medical disease), disease), 00 Cent er stage III stage III Severe Severe Disease Active [facility] aortic aortic 09-29 [facility] stenosis stenosis 00:00: Medica l 00 [place] S/P TAVR S/P TAVR Disease Active [facility] implant of implant of 09-29 [facility] S3U#29 on S3U#29 on 00:00: Medi carey 09/29/21 09/29/21 00 Center H/O H/O Disease Active [facility] asbestosis asbestosis 09-25 [facility] lung lung 00:00: Medical disease disease 00 Center Chronic Chronic Disease Active [facility] venous venous 09-25 kes insufficie insufficie 00:00: Me dical ncy ncy 00 [place] Morbid Morbid Disease Active [facility] obesity obesity 09-25kes with BMI with BMI 00:00: Medica l of of 00 Center 40.0-44.9, 40.0-44.9, adult adult Gout Gout Disease Active [facility] 00[facility] Medical 00 Center CRLD CRLD Disease Active [facility] (chronic (chronic 7-30 [facility] restrictiv restrictiv 00:00: Me dical e lung e lung 00 Center disease) disease) History of History of Disease Active [facility] total left total left 7-30 [facility] knee knee 00:00: Medical replacemen replacemen 00 Ce nter t t (TKR)-2004 (TKR) Acute on Acute on Disease Active [facility] chronic chronic [facility]30 [facility] diastolic diastolic 00:00: Medi carey CHF CHF 00 Center (congestiv (congestiv e heart e heart failure), failure), NYHA class NYHA class 3 3 Type 2 Type [address] [facility] diabetes diabetes 29 [facility] mellitus mellitus 00:00: Medica l 00 Center BALWINDER on BALWINDER on Disease Active [facility] CPAP CPAP 09-24 [facility] 00:00: Medical 00 Center Psoriasis Psoriasis Disease Active [facility] 00:[facility]: Medical 00 Center Osteoarthr Osteoarthr Disease Active [facility] itis itis -29 [facility] 00:00: Medical 00 Center Essential Essential Disease Active [facility] hypertensi hypertensi 29 [facility] on on 00:00: Medical 00 Center Hyperlipid Hyperlipid Disease Active [facility] emia emia -29 [facility] 00:00: Medical 00 Center Severe Severe Disease Active [facility] aortic aortic 09-23 [place] stenosis stenosis 00:00: of 00 Medicin e History of History of Disease Active [facility] total left total left 7-28 [facility]lege knee knee 00:00: of replacemen replacemen 00 Me dicin t t e (TKR)-2004 (TKR) Gout Gout Disease Active [facility] 7-28 College 00:00: of 00 Medicin e Asbestosis Asbestosis Disease Active [facility] (HCCode) (HCCode) 7-28 Colleg e (HCC) lung (HCC) lung 00:00: of disease disease 00 Medicin e CRLD CRLD Disease Active [facility] (chronic (chronic 09-23 Colleg e restrictiv restrictiv 00:00: of e lung e lung 00 Medicin disease) disease) e Chronic Chronic Disease Active [facility] venous venous 09-23 College insufficie insufficie 00:00: of ncy of ncy of 00 Medicin lower lower e extremity extremity Type II Type II Problem Active 2021-06-18 Kamini rodarte diabetes diabetes 10-22 04:44:46 l mellitus mellitus 00:00: n without without 00 complicati complicati on on (disorder) (disorder) Active 10/23/2015 Problem 06/18/2021 [facility] Essential Problem Active 2021-06-18 [facility] tremor Essential 03-20 04:44:46 l (disorder) tremor 00:00: n (disorder) 00 Active 03/20/2015 Problem 06/18/2021 [facility] Neuropathy Neuropath Problem Active 2021-06-18 [facility] (disorder) y 04:44:46 l (disorder) n Active Problem 06/18/2021 [facility] 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 04:44:46 l s s [place] (disorder) (disorder) Active Problem 06/18/2021 [facility] Metal Metal Problem Active 2021-06-18 [facility] ia foreign foreign 04:44:46 l body in body in [place] upper limb upper limb (disorder) (disorder) Active Problem 06/18/2021 [facility] [id number] [place] [id number] carotid Spirit stenosis - [facility] [id number] Vitamin D Problem Comm on deficiency Spirit - [facility] [id number] Chronic Problem Commo n diastolic Spirit congestive - CHI heart [facility] [id number] Chronic Problem Commo n heart Spirit failure - [facility] with [facility] Medical [facility] Heart Murmur, Problem Common murmur cardiac Spirit - [facility] Gastroesop Chronic Problem Comm on hageal GERD Spirit reflux - CHI disease [facility] Iron Anemia, Problem Common deficiency iron Spirit anemia deficiency - [facility] Benign Hyperplast Problem Commo n neoplasm ic colon Spirit of colon polyp - [facility] [id number] Morbid Problem Commo n [id number] (severe) Spirit obesity - CHI due to St excess [facility] calories [facility] [id number] Diabetic Problem Comm on polyneurop Spirit athy - CHI associated St with type [facility] 2 diabetes Medica l mellitus Center [id number] PSA Problem Common (psoriatic Spirit arthritis) - CHI [facility] [id number] History of Problem Co mmon gout Spirit - CHI [facility] [id number] PUD Problem Common (peptic Spirit ulcer - CHI disease) [facility] [id number] FDC Problem Com mon (current) Spirit use of - CHI insulin [facility] [id number] Chronic Problem Common obstructiv Spirit e - 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 - CHI of left foot [facility] Aortic Aortic Problem Common valve valve Spirit disorder stenosis, - CHI nonrheumat [facility] [id number] Non-pressu Problem Co mmon re chronic Spirit ulcer of - [facility] other part St of left [facility] foot with Medical other Center specified severity [id number] Thrombocyt Problem Co mmon openia Spirit - CHI [facility] [id number] Type 2 Problem Common diabetes Spirit mellitus - CHI 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[facility] nephropath Medica l y Center [id number] 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 - [facility] scalp and St skin of [facility] neck [facility] [id number] Type 2 Problem Common diabetes Spirit mellitus - CHI with foot ulcer [facility] [id number] Diabetes Problem Comm on mellitus Spirit due to - CHI underlying condition [facility] with foot Medical ulcer Center Allergies, Adverse Reactions, Alerts Allergy Allergy Status Severity Reaction(s) Onset Inactive Treating Comm ents Source Name Type Date Date Clinician No Known DA Active [facility] Allergie 05-25 [facility] 00:00: [place] 00 [facility] NO KNOWN Allergy Active [facility] Family History Family Member Diagnosis Comments Start Date Stop Date Source Natural brother Heart disease [facility] Natural brother Valvular heart [facility] disease [facility] Center Natural father Heart disease [facility] Natural father Heart failure [facility] Natural father Other [facility] Natural mother Alzheimer's disease C HI [facility] Natural mother Stroke [facility] Social History Social Habit Start Date Stop Date Quantity Comments Source History SDCO [facility] Alcohol Frequency Medical Center History [facility] Alcohol Std Drinks Medica l Center History SDCO [facility] Alcohol Binge Medical [place] [facility] History [facility] Transport Non-Med Medical Center History of Tobacco [facility] - Use [facility] Alcohol intake 2021-10-04 2021-10-04 Current [facility]er [facility] 00:[facility]:00:00 of alcohol Medical Center (finding) History [facility] 2021-09-29 2021-09-[address] [facility] Transport Med 00:00:00 00:00:[address] [facility] 2021-09-29 2021-09-[address] [facility] Housing Unable to 00:00:00 00:00:00 Medical Center Pay History [facility] 2021-09-29 2021-09-[address] [facility] Housing Places 00:00:00 00:00:00 Medical Ce nter Lived History [facility] 2021-09-29 2021-09-[address] [facility] Housing Homeless 00:00:00 00:00:00 Medical Center Last Year Cigarettes smoked 2021-09-24 2021-09-[address] [facility] current (pack per 00:00:00 00:00:00 Medical Center day) - Reported Tobacco use and 2021-09-24 2021-09-[address] [facility] kes exposure 00:00:00 00:00:00 Medical Center History [facility] 2021-09-24 2021-09-[address] [facility] Alcohol Comment 00:00:00 00:00:00 Medical C enter Sex Assigned At [address] [facility] kes 00:00:00 00:00:00 Medical Center Smoking Status Start Date Stop Date Source Never smoked tobacco [facility] Social History 2021-06-15 15:08:2021-06-15 15:08:27 [facility] Medications Ordered Filled Start Stop Current Ordering Indication Dosage Frequency Signature Comments Components Source Medication Medication Date Date Medication? Clinician (SIG) Name Name glipiZIDE Yes 10mg Take 10 mg [facility] (GLUCOTROL) 9-15 by mouth Yessica ege 10 MG CR 13:26: daily. of tablet 54 Medicin e Apremilast Yes Take by [facility] (OTEZLA) 30 9-15 mouth. Colleg e MG TABS 13:26: of 54 Medicin e omega-3 Yes 2g Q.5D Take [address] fatty 8-30 by mouth 2 [facility]ukes acids-fish 16:10: (two) Medica l oil 01 times Center 340-1,000 daily. mg Cap per capsule multivit-mi Yes Take by [facility] n/FA/lycope 8-30 mouth. [facility]ukes n/lutein 16:09: Medical (CENTRUM 55 Center SILVER MEN ORAL) magnesium Yes 400mg QD Take [address] oxide 250 8-30 mg by [facility]ukes mg 16:09: mouth Medical magnesium 48 daily. Center Tab tablet glipiZIDE Yes 10mg Take [address] (GLUCOTROL) 8-30 by mouth 2 [facility]ie kes 10 MG 16:09: (two) Medical tablet 30 times Center daily before meals. ferrous 0 Yes 325mg Take 325 [facility] sulfate 325 8-30 mg by [facility]ukes (65 FE) MG 16:09: mouth 3 Medi carey EC tablet 19 (three) Center times daily with meals. calcium Yes 600mg Take 600 [facility] carbonate 8-30 mg by [facility]ukes (OS-CAREY) 16:08: mouth 2 Medica l 600 mg 58 (two) Center calcium times (1,500 mg) daily with Tab breakfast and dinner. aspirin 81 0 Yes 81mg QD Take [address] MG EC 8-30 by mouth [facility]ukes tablet 16:08: daily. Medical 41 [place] apremilast 0 Yes Take by [facility] (Otezla) 30 8-30 mouth. [facility]ukes mg Tab 16:08: Medical 31 Center clopidogreL 2021-0 3- No 75mg QD Take [address] (PLAVIX) 75 8-05 08-05 tablet (75 L ukes mg tablet 00:00: 23:59 mg total) Me dical 00 :00 by mouth Center daily. furosemide 2021-2021- No 40mg QD Take [address] (LASIX) 40 10-01-03 tablet (40 [facility] MG tablet 00:00: 23:59 mg total) Me dical 00 :00 by mouth Center daily for 90 days. furosemide 2021-2021- No 40mg Q.5D Take [address] (LASIX) 40 09-30- by mouth 2 [facility] k[facility] MG tablet 10:58: 00:00 (two) Medica l 47 :00 times Center daily. furosemide 2021-0 Yes 40mg Take 1 [facility] (LASIX) 40 8- Tablet by Yessica ege MG tablet 00:00: mouth of 00 daily. Medicin e lisinopril Yes 20mg Take 1 [facility] (PRINIVIL, 8- Tablet by Yessica ege ZESTRIL) 20 00:00: mouth two o f MG tablet 00 times Medicin daily. e clopidogrel 0 Yes 75mg Take 1 [facility] (PLAVIX) 75 09-30 Tablet by Col lege MG Tablet 00:00: mouth of 00 daily. Medicin e lisinopriL 0 2022- No 20mg Take [address] (PRINIVIL,Z 09-30 tablet (20 L ukes ESTRIL) 20 00:00: 23:59 mg total) M edical MG tablet 00 :00 by mouth 2 Cent er (two) times daily before meals. minocycline 2021- No 100mg Take 1 [facility] (MINOCIN) 09-30-15 capsule by Col lege 100 MG 00:00: 00:00 mouth two of capsule 00 :00 times Medicin daily. e apixaban 2021-0 2021- No 5mg Q.5D Take [address] (ELIQUIS) 5 09-30-03 tablet (5 [facility] mg Tab 00:00: 23:59 mg total) Medic al tablet 00 :00 by mouth 2 Center (two) times daily for 30 days. mINOCYCLine 2021-0 2021- No 100mg Take [address] (MINOCIN,DY 09-30- capsule Luke s NACIN) 100 00:00: 23:59 (100 mg Med ical MG capsule 00 :00 total) by Cent er mouth every 12 (twelve) hours for 5 days. Apremilast Yes Take by [facility] (OTEZLA) 30 7-28 mouth. Colleg e MG TABS 13:20: of 25 Medicin e furosemide 0 Yes 40mg Take 40 mg [facility] (LASIX) 40 7-28 by mouth Colle ge MG tablet 13:20: daily. of 02 Medicin e glipiZIDE 0 Yes 10mg Take 10 mg [facility] (GLUCOTROL) 7-28 by mouth Yessica ege 10 MG CR 13:20: daily. of tablet Medicin e rosuvastati Yes 10mg QD Take [address] n (CRESTOR) 7-13 by mouth Luke s 10 MG 00:00: nightly. Medical tablet 00 [place] rosuvastati Yes TAKE 1 [facility] n (CRESTOR) 7-13 TABLET BY Col lege 10 MG 00:00: MOUTH of tablet 00 EVERY DAY Medicin AT BEDTIME e FOR 90 DAYS rosuvastati Yes TAKE 1 [facility] n (CRESTOR) 7-13 TABLET BY Col lege 10 MG 00:00: MOUTH of tablet 00 EVERY DAY Medicin AT BEDTIME e FOR 90 DAYS allopurinoL 0 Yes 300mg QD Take [address] (ZYLOPRIM) 7-11 mg by [facility]ukes 300 MG 00:00: mouth Medical tablet 00 daily. [place] allopurinol Yes TAKE 1 [facility] (ZYLOPRIM) 7-11 TABLET BY Yessica ege 300 MG 00:00: MOUTH of tablet 00 EVERY DAY Medicin e allopurinol 0 Yes TAKE 1 [facility] (ZYLOPRIM) 7-11 TABLET BY Yessica ege 300 MG 00:00: MOUTH of tablet 00 EVERY DAY Medicin e omeprazole Yes 40mg QD Take [address] (PriLOSEC) 6-29 by mouth [facility] 40 MG 00:00: daily. Medical capsule 00 [place] omeprazole Yes TAKE 1 [facility] (PRILOSEC) 6-29 CAPSULE BY Col lege 40 MG 00:00: MOUTH of capsule 00 EVERY DAY Medicin e omeprazole Yes TAKE 1 [facility] (PRILOSEC) 6-29 CAPSULE BY Col lege 40 MG 00:00: MOUTH of capsule 00 EVERY DAY Medicin e metoprolol 0 Yes 100mg QD Take [address] succinate 6-24 mg by [facility]ukes (TOPROL-XL) 00:00: mouth Medic al 100 MG 24 00 daily. Center hr tablet lisinopril Yes TAKE 1 [facility] (PRINIVIL, 6-24 TABLET BY Yessica CRANE) 20 00:00: MOUTH of MG tablet 00 EVERY DAY Medic in e metoprolol Yes TAKE 1 [facility] (TOPROL-XL) 6-24 TABLET BY Col lege 100 MG XL 00:00: MOUTH of tablet 00 EVERY DAY Medicin e metoprolol Yes TAKE 1 [facility] (TOPROL-XL) 6-24 TABLET BY Col lege 100 MG XL 00:00: MOUTH of tablet 00 EVERY DAY Medicin e lisinopriL 0 2021- No 20mg QD Take [address] (PRINIVIL,Z 6-24 08-04 by mouth Bakari es ESTRIL) 20 00:00: 00:00 daily. Medi carey MG tablet 00 :00 Center gabapentin Yes Q.5D Take by [facility] (NEURONTIN) 6-23 mouth 2 [facility] 300 MG 00:00: (two) Medical capsule 00 times Center daily. gabapentin Yes TAKE 1 [facility] (NEURONTIN) 6-23 CAPSULE IN Co llege 300 MG 00:00: THE of capsule 00 MORNING Medicin AND 2 e CAPSULES IN THE EVENING FOR 90 DAYS gabapentin Yes TAKE 1 [facility] (NEURONTIN) 6-23 CAPSULE IN Co llege 300 MG 00:00: THE of capsule 00 MORNING Medicin AND 2 e CAPSULES IN THE EVENING FOR 90 DAYS liraglutide Yes 1.8mg QD Inject 1.[address] (Victoza 6-18 mg [facility]ukes 2-Malvin) 0.6 00:00: subcutaneo M edical mg/0.1 mL 00 [facility] (18 mg/3 daily. mL) syringe VICTOZA 18 Yes INJECT 1.8 [facility] MG/3ML SOPN 6-18 MG [place] 00:00: SUBCUTANEO of 00 USLY EVERY Medicin DAY e VICTOZA 18 Yes INJECT 1.8 [facility] MG/3ML SOPN 6-18 MG [place] 00:00: SUBCUTANEO of 00 USLY EVERY Medicin DAY e Levemir Yes 60U Q.5D Inject 60 [facility] FlexTouch 6-13 Units [facility] U-100 00:00: subcutaneo Medica l Insuln 100 00 usly 2 Center unit/mL (3 (two) mL) InPn times injection daily. Insulin Yes INJECT 60 [facility] Detemir 6-13 UNITS College (LEVEMIR 00:00: UNDER THE of FLEXTOUCH) 00 SKIN TWICE Med icin 100 UNIT/ML A DAY e SOPN Insulin Yes INJECT 60 [facility] Detemir 6-13 UNITS [place] (LEVEMIR 00:00: UNDER THE of FLEXTOUCH) 00 SKIN TWICE Med icin 100 UNIT/ML A DAY e SOPN ARNUITY Yes INHALE 1 [facility] ELLIPTA 100 5-23 PUFF BY Colle ge MCG/ACT 00:00: MOUTH of AEPB 00 EVERY DAY Medicin 90 e ARNUITY 0 Yes INHALE 1 [facility] ELLIPTA 100 5-23 PUFF BY Colle ge MCG/ACT 00:00: MOUTH of AEPB 00 EVERY DAY Medicin 90 e amLODIPine Yes 10mg [id number] Take [address] (NORVASC) 5-16 [id number] by mouth 3 [facility] 10 MG 00:00: 3D (three) Medical tablet 00 times Center daily. hydrALAZINE Yes 100mg Q.[id number] Take [address] (APRESOLINE 5-16 [id number] mg by David reece ) 100 MG 00:00: 3D mouth 3 Medica l tablet 00 (three) Center times daily. amlodipine Yes TAKE 1 [facility] (NORVASC) 5-16 TABLET BY Colle ge 10 MG 00:00: MOUTH of tablet 00 THREE Medicin TIMES A e DAY hydrALAZINE Yes TAKE 1 [facility] (APRESOLINE 5-16 TABLET BY Col lege ) 100 MG 00:00: MOUTH of tablet 00 THREE Medicin TIMES A e DAY amlodipine Yes TAKE 1 [facility] (NORVASC) 5-16 TABLET BY Roxi ge 10 MG 00:00: MOUTH of tablet 00 THREE Medicin TIMES A e DAY hydrALAZINE Yes TAKE 1 [facility] (APRESOLINE 5-16 TABLET BY Col lege ) 100 MG 00:00: MOUTH of tablet 00 THREE Medicin TIMES A e DAY baclofen Yes 10mg QD [address] (LIORESAL) 5-03 nightly. [facility]ukes 10 MG 00:00: Medical tablet 00 Center baclofen Yes TAKE 1 Jose Guadalupe (LIORESAL) 5-03 TABLET BY Yessica ege 10 MG 00:00: MOUTH of tablet 00 EVERY Medicin EVENING e NEEDED FOR SPASMS baclofen Yes TAKE 1 Jose [facility] (LIORESAL) 5-03 TABLET BY Yessica ege 10 MG 00:00: MOUTH of tablet 00 EVERY Medicin EVENING e NEEDED FOR SPASMS calcium-vit Yes 1 tab, PO, Memoria dugan D 600 4-19 TID, 0 l mg-200 15:17: Refill(s) n units oral 00 tablet iron Yes 325 mg = 1 [facility] sulfate 4-19 tab, PO, l (ferrous 15:16: TID, 0 [place] sulfate) 00 Refill(s) 325 mg oral tablet magnesium Yes 250 mg = 1 Me moria gluconate 4-19 tab, PO, l 250 mg oral 15:16: BID, # 60 H ermann tablet 00 tab, 0 Refill(s) Centrum Yes 1 tab, PO, Car osman Silver oral 4-19 Daily, # l tablet 15:15: 90 tab, 0 n 00 Refill(s) Ab Low Yes 81 mg = 1 Mem oria Dose 81 mg 4-19 tab, PO, l oral 15:15: Daily, 0 [place] delayed 00 Refill(s) release tablet Fish Oil Yes 1,000 mg = Mem oria 1000 mg 4-19 1 cap, PO, l oral 15:15: Daily, 0 [place] capsule 00 Refill(s) amLODIPine Yes 10 mg = 1 Me moria 10 mg oral 4-19 tab, PO, l tablet 15:14: Daily, # [place] 00 90 tab, 1 Refill(s) hydrALAZINE Yes 100 mg = 1 Memoria 100 mg oral 4-19 tab, PO, l tablet 15:14: TID, # 90 n 00 tab, 3 Refill(s) furosemide Yes 40 mg = 1 Me moria 40 mg oral 4-19 tab, PO, l tablet 15:14: Daily, # [place] 00 90 tab, 1 Refill(s) Otezla 30 Yes 30 mg = 1 Mem oria mg oral 4-19 tab, PO, l tablet 15:13: BID, 0 [place] 00 Refill(s) baclofen 10 Yes = 1 tab, Me moria mg oral 3-16 PO, QPM, l tablet 14:40: PRN [place] 00 NEEDED FOR SPASMS, # 90 tab, 2 Refill(s), Pharmacy: [id number] baclofen 10 No = 1 tab, Me moria mg oral 9-01 PO, QPM, l tablet 14:41: PRN [place] 00 NEEDED FOR SPASMS, # 90 tab, 2 Refill(s), Pharmacy: [facility] [id number] baclofen 10 No 10 mg = 1 M emoria mg oral 6-10 tab, PO, l tablet 16:32: QPM, PRN [place] 00 Spasms, # 30 tab, 2 Refill(s), Pharmacy: [id number] Levemir Yes 130, Memoria FlexPen 4-16 SUB-Q, 0 l 15:32: Refill(s) [place] 00 lisinopril Yes 20 mg = 1 Me moria 20 mg oral 4-17 tab, PO, l tablet 15:50: Daily, # [place] 00 30 tab, 0 Refill(s) Levemir Levemir Yes Yann 60 units Com mon FlexTouch FlexTouch [facility]ir it - [facility] OneTouch OneTouch No BID OneTouch Ultra Blue Ultra Blue Ultra Blue - - - amLODIPine amLODIPine No QD amLODIPine Besylate 5 Besylate 5 Besylate 5 MG MG MG Arnuity Arnuity No 1{puff} QD Arnuity Ellipta 100 Ellipta 100 Ellipta MCG/ACT MCG/ACT 100 MCG/ACT Metoprolol Metoprolol No 1{table QD Metoprolol Succinate Succinate t} Succinate ER 100 MG ER 100 MG ER 100 MG Victoza 18 Victoza 18 No QD Victoza 18 MG/3ML MG/3ML MG/3ML Gabapentin Gabapentin No 1{capsu Gabapentin 300 MG 300 MG le} 300 MG Otezla 30 Otezla 30 No 1{table BID Otezla 30 MG MG t} MG hydrALAZINE hydrALAZINE No TID hydrALAZIN HCl 100 MG HCl 100 MG E HCl 100 MG Omeprazole Omeprazole No QD Omeprazole 40 MG 40 MG 40 MG BD Pen BD Pen No TID BD Pen Needle Mini Needle Mini Needle U/F 31G X 5 U/F 31G X 5 Mini U/F MM MM 31G X 5 MM Furosemide Furosemide No 1{table QD Furosemide 40 MG 40 MG t} 40 MG Lisinopril Lisinopril No 1{table QD Lisinopril 20 MG 20 MG t} 20 MG glipiZIDE glipiZIDE No BID glipiZIDE 10 MG 10 MG 10 MG Allopurinol Allopurinol No QD Allopurino 300 MG 300 MG l 300 MG Levemir Levemir No [place] FlexTouch FlexTouch FlexTouch 100 UNIT/ML 100 UNIT/ML 100 UNIT/ML Vitamin D Vitamin D No 1{table QD Vitamin D 50 MCG 50 MCG t} 50 MCG (1999) (1999) (1999) Rosuvastati Rosuvastati No 1{table Rosuvastat n Calcium n Calcium t} in Calcium 10 MG 10 MG 10 MG OneTouch OneTouch No BID OneTouch Ultra Blue Ultra Blue Ultra Blue - - - amLODIPine amLODIPine No QD amLODIPine Besylate 5 Besylate 5 Besylate 5 MG MG MG Arnuity Arnuity No 1{puff} QD Arnuity Ellipta 100 Ellipta 100 Ellipta MCG/ACT MCG/ACT 100 MCG/ACT Metoprolol Metoprolol No 1{table QD Metoprolol Succinate Succinate t} Succinate ER 100 MG ER 100 MG ER 100 MG Victoza 18 Victoza 18 No QD Victoza 18 MG/3ML MG/3ML MG/3ML Gabapentin Gabapentin No 1{capsu Gabapentin 300 MG 300 MG le} 300 MG Otezla 30 Otezla 30 No 1{table BID Otezla 30 MG MG t} MG hydrALAZINE hydrALAZINE No TID hydrALAZIN HCl 100 MG HCl 100 MG E HCl 100 MG Omeprazole Omeprazole No QD Omeprazole 40 MG 40 MG 40 MG BD Pen BD Pen No TID BD Pen Needle Mini Needle Mini Needle U/F 31G X 5 U/F 31G X 5 Mini U/F MM MM 31G X 5 MM Furosemide Furosemide No 1{table QD Furosemide 40 MG 40 MG t} 40 MG Lisinopril Lisinopril No 1{table QD Lisinopril 20 MG 20 MG t} 20 MG glipiZIDE glipiZIDE No BID glipiZIDE 10 MG 10 MG 10 MG Allopurinol Allopurinol No QD Allopurino 300 MG 300 MG l 300 MG Levemir Levemir No [place] FlexTouch FlexTouch FlexTouch 100 UNIT/ML 100 UNIT/ML 100 UNIT/ML Vitamin D Vitamin D No 1{table QD Vitamin D 50 MCG 50 MCG t} 50 MCG (1999) (1999) (1999) Rosuvastati Rosuvastati No 1{table Rosuvastat n Calcium n Calcium t} in Calcium 10 MG 10 MG 10 MG OneTouch OneTouch No BID OneTouch Ultra Blue Ultra Blue Ultra Blue - - - amLODIPine amLODIPine No QD amLODIPine Besylate 5 Besylate 5 Besylate 5 MG MG MG Arnuity Arnuity No 1{puff} QD Arnuity Ellipta 100 Ellipta 100 Ellipta MCG/ACT MCG/ACT 100 MCG/ACT Metoprolol Metoprolol No 1{table QD Metoprolol Succinate Succinate t} Succinate ER 100 MG ER 100 MG ER 100 MG glipiZIDE glipiZIDE No glipiZIDE 10 MG 10 MG 10 MG hydrALAZINE hydrALAZINE No TID hydrALAZIN HCl 100 MG HCl 100 MG E HCl 100 MG Gabapentin Gabapentin No 1{capsu Gabapentin 300 MG 300 MG le} 300 MG Furosemide Furosemide No Furosemide 40 MG 40 MG 40 MG Omeprazole Omeprazole No QD Omeprazole 40 MG 40 MG 40 MG BD Pen BD Pen No TID BD Pen Needle Mini Needle Mini Needle U/F 31G X 5 U/F 31G X 5 Mini U/F MM MM 31G X 5 MM Otezla 30 Otezla 30 No 1{table BID Otezla 30 MG MG t} MG Lisinopril Lisinopril No 1{table QD Lisinopril 20 MG 20 MG t} 20 MG Vitamin D Vitamin D No 1{table QD Vitamin D 50 MCG 50 MCG t} 50 MCG (1999 UT) (1999) (1999) Allopurinol Allopurinol No QD Allopurino 300 MG 300 MG l 300 MG Levemir Levemir No Levemir FlexTouch FlexTouch FlexTouch 100 UNIT/ML 100 UNIT/ML 100 UNIT/ML Victoza 18 Victoza 18 No QD Victoza 18 MG/3ML MG/3ML MG/3ML Rosuvastati Rosuvastati No 1{table Rosuvastat n Calcium n Calcium t} in Calcium 10 MG 10 MG 10 MG BD Pen BD Pen No TID Needle Mini Needle Mini U/F 31G X 5 U/F 31G X 5 MM MM glipiZIDE glipiZIDE No 10 MG 10 MG amLODIPine amLODIPine No Besylate 10 Besylate 10 MG MG Omeprazole Omeprazole No QD 40 MG 40 MG Omeprazole Omeprazole No 40 MG 40 MG Lisinopril Lisinopril No 20 MG 20 MG Levemir Levemir No FlexTouch FlexTouch 100 UNIT/ML 100 UNIT/ML Levemir Levemir No FlexTouch FlexTouch 100 UNIT/ML 100 UNIT/ML glipiZIDE glipiZIDE No BID 10 MG 10 MG OneTouch OneTouch No BID Ultra Blue Ultra Blue - - Centrum Centrum No Silver - Silver - Victoza 18 Victoza 18 No QD MG/3ML MG/3ML Metoprolol Metoprolol No Succinate Succinate ER 100 MG ER 100 MG Rosuvastati Rosuvastati No n Calcium n Calcium 10 MG 10 MG Calcium 600 Calcium 600 No 1{table BID MG MG t_with_ meals} amLODIPine amLODIPine No QD Besylate 10 Besylate 10 MG MG Iron 325 Iron 325 No 1{table QD (65 Fe) MG (65 Fe) MG t} Lisinopril Lisinopril No 1{table QD 20 MG 20 MG t} Gabapentin Gabapentin No 1{capsu 300 MG 300 MG le} Ab Ab No 1{table QD Aspirin EC Aspirin EC t} Low Dose 81 Low Dose 81 MG MG Rosuvastati Rosuvastati No 1{table n Calcium n Calcium t} 10 MG 10 MG Furosemide Furosemide No 40 MG 40 MG Gabapentin Gabapentin No 300 MG 300 MG Vitamin D Vitamin D No 1{table QD 50 MCG 50 MCG t} (1999) (1999) Fish Oil Fish Oil No 1{capsu QD 1000 MG 1000 MG le} Allopurinol Allopurinol No QD 300 MG 300 MG Metoprolol Metoprolol No 1{table QD Succinate Succinate t} ER 100 MG ER 100 MG Magnesium Magnesium No 1{table QD 250 MG 250 MG t_with_ a_meal} Otezla 30 Otezla 30 No 1{table BID MG MG t} hydrALAZINE hydrALAZINE No 1{table TID HCl 100 MG HCl 100 MG t_with_ food} Furosemide Furosemide No 1{table QD 40 MG 40 MG t} Arnuity Arnuity No 1{puff} QD Ellipta 100 Ellipta 100 MCG/ACT MCG/ACT Furosemide Furosemide No 1{table QD Furosemide 40 MG 40 MG t} 40 MG Allopurinol Allopurinol No Allopurino 300 MG 300 MG l 300 MG Gabapentin Gabapentin No Gabapentin 300 MG 300 MG 300 MG Metoprolol Metoprolol No 1{table QD Metoprolol Succinate Succinate t} Succinate ER 100 MG ER 100 MG ER 100 MG amLODIPine amLODIPine No amLODIPine Besylate 5 Besylate 5 Besylate 5 MG MG MG Lisinopril Lisinopril No Lisinopril 20 MG 20 MG 20 MG Omeprazole Omeprazole No QD Omeprazole 40 MG 40 MG 40 MG Levemir Levemir No Levemir FlexTouch FlexTouch FlexTouch 100 UNIT/ML 100 UNIT/ML 100 UNIT/ML Levemir Levemir No Levemir FlexTouch FlexTouch FlexTouch 100 UNIT/ML 100 UNIT/ML 100 UNIT/ML hydrALAZINE hydrALAZINE No 1{table TID hydrALAZIN HCl 100 MG HCl 100 MG t_with_ E HCl 100 food} MG Victoza 18 Victoza 18 No Victoza 18 MG/3ML MG/3ML MG/3ML OneTouch OneTouch No BID OneTouch Ultra Blue Ultra Blue Ultra Blue - - - Metoprolol Metoprolol No Metoprolol Succinate Succinate Succinate ER 100 MG ER 100 MG ER 100 MG Calcium 600 Calcium 600 No 1{table BID Calcium MG MG t_with_ 600 MG meals} Arnuity Arnuity No 1{puff} QD Arnuity Ellipta 100 Ellipta 100 Ellipta MCG/ACT MCG/ACT 100 MCG/ACT Gabapentin Gabapentin No 1{capsu Gabapentin 300 MG 300 MG le} 300 MG Otezla 30 Otezla 30 No 1{table BID Otezla 30 MG MG t} MG Centrum Centrum No Centrum Silver - Silver - Silver - Ab Ab No 1{table QD Ab Aspirin EC Aspirin EC t} Aspirin EC Low Dose 81 Low Dose 81 Low Dose MG MG 81 MG BD Pen BD Pen No BD Pen Needle Mini Needle Mini Needle U/F 31G X 5 U/F 31G X 5 Mini U/F MM MM 31G X 5 MM Vitamin D Vitamin D No 1{table QD Vitamin D 50 MCG 50 MCG t} 50 MCG (1999 UT) (1999 UT) (1999) Lisinopril Lisinopril No 1{table QD Lisinopril 20 MG 20 MG t} 20 MG Fish Oil Fish Oil No 1{capsu QD Fish Oil 1000 MG 1000 MG le} 1000 MG glipiZIDE glipiZIDE No BID glipiZIDE 10 MG 10 MG 10 MG Allopurinol Allopurinol No QD Allopurino 300 MG 300 MG l 300 MG Rosuvastati Rosuvastati No 1{table Rosuvastat n Calcium n Calcium t} in Calcium 10 MG 10 MG 10 MG Omeprazole Omeprazole No Omeprazole 40 MG 40 MG 40 MG BD Pen BD Pen No TID BD Pen Needle Mini Needle Mini Needle U/F 31G X 5 U/F 31G X 5 Mini U/F MM MM 31G X 5 MM amLODIPine amLODIPine No QD amLODIPine Besylate 10 Besylate 10 Besylate MG MG 10 MG Victoza 18 Victoza 18 No QD Victoza 18 MG/3ML MG/3ML MG/3ML Furosemide Furosemide No Furosemide 40 MG 40 MG 40 MG Rosuvastati Rosuvastati No Rosuvastat n Calcium n Calcium in Calcium 10 MG 10 MG 10 MG glipiZIDE glipiZIDE No glipiZIDE 10 MG 10 MG 10 MG Iron 325 Iron 325 No 1{table QD Iron 325 (65 Fe) MG (65 Fe) MG t} (65 Fe) MG Magnesium Magnesium No 1{table QD Magnesium 250 MG 250 MG t_with_ 250 MG a_meal} Metoprolol Metoprolol No 1{table QD Metoprolol Succinate Succinate t} Succinate ER 100 MG ER 100 MG ER 100 MG amLODIPine amLODIPine No amLODIPine Besylate 5 Besylate 5 Besylate 5 MG MG MG Lisinopril Lisinopril No Lisinopril 20 MG 20 MG 20 MG amLODIPine amLODIPine No QD amLODIPine Besylate 10 Besylate 10 Besylate MG MG 10 MG Rosuvastati Rosuvastati No 1{table Rosuvastat n Calcium n Calcium t} in Calcium 10 MG 10 MG 10 MG Omeprazole Omeprazole No Omeprazole 40 MG 40 MG 40 MG hydrALAZINE hydrALAZINE No 1{table TID hydrALAZIN HCl 100 MG HCl 100 MG t_with_ E HCl 100 food} MG Victoza 18 Victoza 18 No Victoza 18 MG/3ML MG/3ML MG/3ML OneTouch OneTouch No BID OneTouch Ultra Blue Ultra Blue Ultra Blue - - - Furosemide Furosemide No 1{table QD Furosemide 40 MG 40 MG t} 40 MG Allopurinol Allopurinol No Allopurino 300 MG 300 MG l 300 MG Gabapentin Gabapentin No Gabapentin 300 MG 300 MG 300 MG Arnuity Arnuity No 1{puff} QD Arnuity Ellipta 100 Ellipta 100 Ellipta MCG/ACT MCG/ACT 100 MCG/ACT Omeprazole Omeprazole No QD Omeprazole 40 MG 40 MG 40 MG OneTouch OneTouch No OneTouch Ultra - Ultra - Ultra - Gabapentin Gabapentin No 1{capsu Gabapentin 300 MG 300 MG le} 300 MG Metoprolol Metoprolol No Metoprolol Succinate Succinate Succinate ER 100 MG ER 100 MG ER 100 MG Ab Ab No 1{table QD Ab Aspirin EC Aspirin EC t} Aspirin EC Low Dose 81 Low Dose 81 Low Dose MG MG 81 MG Victoza 18 Victoza 18 No QD Victoza 18 MG/3ML MG/3ML MG/3ML Furosemide Furosemide No Furosemide 40 MG 40 MG 40 MG glipiZIDE glipiZIDE No BID glipiZIDE 10 MG 10 MG 10 MG Allopurinol Allopurinol No QD Allopurino 300 MG 300 MG l 300 MG BD Pen BD Pen No TID BD Pen Needle Mini Needle Mini Needle U/F 31G X 5 U/F 31G X 5 Mini U/F MM MM 31G X 5 MM Centrum Centrum No Centrum Silver - Silver - Silver - Calcium 600 Calcium 600 No 1{table BID Calcium MG MG t_with_ 600 MG meals} Lisinopril Lisinopril No 1{table QD Lisinopril 20 MG 20 MG t} 20 MG Otezla 30 Otezla 30 No 1{table BID Otezla 30 MG MG t} MG BD Pen BD Pen No BD Pen Needle Mini Needle Mini Needle U/F 31G X 5 U/F 31G X 5 Mini U/F MM MM 31G X 5 MM Vitamin D Vitamin D No 1{table QD Vitamin D 50 MCG 50 MCG t} 50 MCG (1999 UT) (1999 UT) (1999) Fish Oil Fish Oil No 1{capsu QD Fish Oil 1000 MG 1000 MG le} 1000 MG glipiZIDE glipiZIDE No glipiZIDE 10 MG 10 MG 10 MG Levemir Levemir No Levemir FlexTouch FlexTouch FlexTouch 100 UNIT/ML 100 UNIT/ML 100 UNIT/ML Rosuvastati Rosuvastati No Rosuvastat n Calcium n Calcium in Calcium 10 MG 10 MG 10 MG Iron 325 Iron 325 No 1{table QD Iron 325 (65 Fe) MG (65 Fe) MG t} (65 Fe) MG Magnesium Magnesium No 1{table QD Magnesium 250 MG 250 MG t_with_ 250 MG a_meal} BD Pen BD Pen No TID BD Pen Needle Mini Needle Mini Needle U/F 31G X 5 U/F 31G X 5 Mini U/F MM MM 31G X 5 MM OneTouch OneTouch No BID OneTouch Ultra Blue Ultra Blue Ultra Blue - - - Otezla 30 Otezla 30 No 1{table BID Otezla 30 MG MG t} MG Furosemide Furosemide No Furosemide 40 MG 40 MG 40 MG Iron 325 Iron 325 No 1{table QD Iron 325 (65 Fe) MG (65 Fe) MG t} (65 Fe) MG Allopurinol Allopurinol No Allopurino 300 MG 300 MG l 300 MG Victoza 18 Victoza 18 No QD Victoza 18 MG/3ML MG/3ML MG/3ML Magnesium Magnesium No 1{table QD Magnesium 250 MG 250 MG t_with_ 250 MG a_meal} Furosemide Furosemide No 1{table QD Furosemide 40 MG 40 MG t} 40 MG Centrum Centrum No Centrum Silver - Silver - Silver - Calcium 600 Calcium 600 No 1{table BID Calcium MG MG t_with_ 600 MG meals} Lisinopril Lisinopril No Lisinopril 20 MG 20 MG 20 MG Metoprolol Metoprolol No Metoprolol Succinate Succinate Succinate ER 100 MG ER 100 MG ER 100 MG OneTouch OneTouch No OneTouch Ultra - Ultra - Ultra - Vitamin D Vitamin D No 1{table QD Vitamin D 50 MCG 50 MCG t} 50 MCG (1999) (1999) (1999) amLODIPine amLODIPine No amLODIPine Besylate 5 Besylate 5 Besylate 5 MG MG MG Omeprazole Omeprazole No Omeprazole 40 MG 40 MG 40 MG glipiZIDE glipiZIDE No glipiZIDE 10 MG 10 MG 10 MG Victoza 18 Victoza 18 No Victoza 18 MG/3ML MG/3ML MG/3ML Omeprazole Omeprazole No QD Omeprazole 40 MG 40 MG 40 MG Lisinopril Lisinopril No 1{table QD Lisinopril 20 MG 20 MG t} 20 MG Rosuvastati Rosuvastati No Rosuvastat n Calcium n Calcium in Calcium 10 MG 10 MG 10 MG Ab Ab No 1{table QD Ab Aspirin EC Aspirin EC t} Aspirin EC Low Dose 81 Low Dose 81 Low Dose MG MG 81 MG Rosuvastati Rosuvastati No 1{table Rosuvastat n Calcium n Calcium t} in Calcium 10 MG 10 MG 10 MG Allopurinol Allopurinol No QD Allopurino 300 MG 300 MG l 300 MG Fish Oil Fish Oil No 1{capsu QD Fish Oil 1000 MG 1000 MG le} 1000 MG Gabapentin Gabapentin No 1{capsu Gabapentin 300 MG 300 MG le} 300 MG Arnuity Arnuity No 1{puff} QD Arnuity Ellipta 100 Ellipta 100 Ellipta MCG/ACT MCG/ACT 100 MCG/ACT Levemir Levemir No Levemir FlexTouch FlexTouch FlexTouch 100 UNIT/ML 100 UNIT/ML 100 UNIT/ML glipiZIDE glipiZIDE No BID glipiZIDE 10 MG 10 MG 10 MG BD Pen BD Pen No BD Pen Needle Mini Needle Mini Needle U/F 31G X 5 U/F 31G X 5 Mini U/F MM MM 31G X 5 MM Gabapentin Gabapentin No Gabapentin 300 MG 300 MG 300 MG amLODIPine amLODIPine No QD amLODIPine Besylate 10 Besylate 10 Besylate MG MG 10 MG Metoprolol Metoprolol No 1{table QD Metoprolol Succinate Succinate t} Succinate ER 100 MG ER 100 MG ER 100 MG hydrALAZINE hydrALAZINE No 1{table TID hydrALAZIN HCl 100 MG HCl 100 MG t_with_ E HCl 100 food} MG Levemir Levemir No Levemir FlexTouch FlexTouch FlexTouch 100 UNIT/ML 100 UNIT/ML 100 UNIT/ML Victoza 18 Victoza 18 No QD Victoza 18 MG/3ML MG/3ML MG/3ML Calcium 600 Calcium 600 No 1{table BID Calcium MG MG t_with_ 600 MG meals} Lisinopril Lisinopril No Lisinopril 20 MG 20 MG 20 MG Centrum Centrum No Centrum Silver - Silver - Silver - OneTouch OneTouch No BID OneTouch Ultra Blue Ultra Blue Ultra Blue - - - Otezla 30 Otezla 30 No 1{table BID Otezla 30 MG MG t} MG Fish Oil Fish Oil No 1{capsu QD Fish Oil 1000 MG 1000 MG le} 1000 MG amLODIPine amLODIPine No amLODIPine Besylate 5 Besylate 5 Besylate 5 MG MG MG Omeprazole Omeprazole No Omeprazole 40 MG 40 MG 40 MG Vitamin D Vitamin D No 1{table QD Vitamin D 50 MCG 50 MCG t} 50 MCG (1999 UT) (1999 UT) (1999) Magnesium Magnesium No 1{table QD Magnesium 250 MG 250 MG t_with_ 250 MG a_meal} Furosemide Furosemide No 1{table QD Furosemide 40 MG 40 MG t} 40 MG glipiZIDE glipiZIDE No glipiZIDE 10 MG 10 MG 10 MG Ab Ab No 1{table QD Ab Aspirin EC Aspirin EC t} Aspirin EC Low Dose 81 Low Dose 81 Low Dose MG MG 81 MG Metoprolol Metoprolol No Metoprolol Succinate Succinate Succinate ER 100 MG ER 100 MG ER 100 MG OneTouch OneTouch No OneTouch Ultra - Ultra - Ultra - Arnuity Arnuity No 1{puff} QD Arnuity Ellipta 100 Ellipta 100 Ellipta MCG/ACT MCG/ACT 100 MCG/ACT Allopurinol Allopurinol No QD Allopurino 300 MG 300 MG l 300 MG Victoza 18 Victoza 18 No Victoza 18 MG/3ML MG/3ML MG/3ML Lisinopril Lisinopril No 1{table QD Lisinopril 20 MG 20 MG t} 20 MG glipiZIDE glipiZIDE No BID glipiZIDE 10 MG 10 MG 10 MG Gabapentin Gabapentin No 1{capsu Gabapentin 300 MG 300 MG le} 300 MG Rosuvastati Rosuvastati No 1{table Rosuvastat n Calcium n Calcium t} in Calcium 10 MG 10 MG 10 MG Rosuvastati Rosuvastati No Rosuvastat n Calcium n Calcium in Calcium 10 MG 10 MG 10 MG BD Pen BD Pen No BD Pen Needle Mini Needle Mini Needle U/F 31G X 5 U/F 31G X 5 Mini U/F MM MM 31G X 5 MM Iron 325 Iron 325 No 1{table QD Iron 325 (65 Fe) MG (65 Fe) MG t} (65 Fe) MG Allopurinol Allopurinol No Allopurino 300 MG 300 MG l 300 MG Levemir Levemir No Levemir FlexTouch FlexTouch FlexTouch 100 UNIT/ML 100 UNIT/ML 100 UNIT/ML Furosemide Furosemide No Furosemide 40 MG 40 MG 40 MG Omeprazole Omeprazole No QD Omeprazole 40 MG 40 MG 40 MG Gabapentin Gabapentin No Gabapentin 300 MG 300 MG 300 MG amLODIPine amLODIPine No QD amLODIPine Besylate 10 Besylate 10 Besylate MG MG 10 MG Metoprolol Metoprolol No 1{table QD Metoprolol Succinate Succinate t} Succinate ER 100 MG ER 100 MG ER 100 MG hydrALAZINE hydrALAZINE No 1{table TID hydrALAZIN HCl 100 MG HCl 100 MG t_with_ E HCl 100 food} MG Levemir Levemir No Levemir FlexTouch FlexTouch FlexTouch 100 UNIT/ML 100 UNIT/ML 100 UNIT/ML Ab Ab No 1{table QD Ab Aspirin EC Aspirin EC t} Aspirin EC Low Dose 81 Low Dose 81 Low Dose MG MG 81 MG Furosemide Furosemide No 1{table QD Furosemide 40 MG 40 MG t} 40 MG BD Pen BD Pen No BD Pen Needle Mini Needle Mini Needle U/F 31G X 5 U/F 31G X 5 Mini U/F MM MM 31G X 5 MM hydrALAZINE hydrALAZINE No 1{table TID hydrALAZIN HCl 100 MG HCl 100 MG t_with_ E HCl 100 food} MG glipiZIDE glipiZIDE No BID glipiZIDE 10 MG 10 MG 10 MG Vitamin D Vitamin D No 1{table QD Vitamin D 50 MCG 50 MCG t} 50 MCG (1999) (1999) (1999) Clopidogrel Clopidogrel No 1{table QD Clopidogre Bisulfate Bisulfate t} l 75 MG 75 MG Bisulfate 75 MG Allopurinol Allopurinol No QD Allopurino 300 MG 300 MG l 300 MG Arnuity Arnuity No 1{puff} QD Arnuity Ellipta 100 Ellipta 100 Ellipta MCG/ACT MCG/ACT 100 MCG/ACT Victoza 18 Victoza 18 No QD Victoza 18 MG/3ML MG/3ML MG/3ML Centrum Centrum No Centrum Silver - Silver - Silver - Lisinopril Lisinopril No 1{table BID Lisinopril 20 MG 20 MG t} 20 MG amLODIPine amLODIPine No QD amLODIPine Besylate 10 Besylate 10 Besylate MG MG 10 MG Gabapentin Gabapentin No 1{capsu Gabapentin 300 MG 300 MG le} 300 MG BD Pen BD Pen No TID BD Pen Needle Mini Needle Mini Needle U/F 31G X 5 U/F 31G X 5 Mini U/F MM MM 31G X 5 MM Omeprazole Omeprazole No QD Omeprazole 40 MG 40 MG 40 MG Rosuvastati Rosuvastati No 1{table Rosuvastat n Calcium n Calcium t} in Calcium 10 MG 10 MG 10 MG OneTouch OneTouch No BID OneTouch Ultra Blue Ultra Blue Ultra Blue - - - Metoprolol Metoprolol No QD Metoprolol Succinate Succinate Succinate ER 100 MG ER 100 MG ER 100 MG Levemir Levemir No Levemir FlexTouch FlexTouch FlexTouch 100 UNIT/ML 100 UNIT/ML 100 UNIT/ML Fish Oil Fish Oil No 1{capsu QD Fish Oil 1000 MG 1000 MG le} 1000 MG Otezla 30 Otezla 30 No 1{table BID Otezla 30 MG MG t} MG Calcium 600 Calcium 600 No 1{table BID Calcium MG MG t_with_ 600 MG meals} Iron 325 Iron 325 No 1{table QD Iron 325 (65 Fe) MG (65 Fe) MG t} (65 Fe) MG Magnesium Magnesium No 1{table QD Magnesium 250 MG 250 MG t_with_ 250 MG a_meal} Victoza 18 Victoza 18 No QD Victoza 18 MG/3ML MG/3ML MG/3ML Vitamin D Vitamin D No 1{table QD Vitamin D 50 MCG 50 MCG t} 50 MCG (1999 UT) (1999 UT) (1999) BD Pen BD Pen No TID BD Pen Needle Mini Needle Mini Needle U/F 31G X 5 U/F 31G X 5 Mini U/F MM MM 31G X 5 MM Rosuvastati Rosuvastati No 1{table Rosuvastat n Calcium n Calcium t} in Calcium 10 MG 10 MG 10 MG Eliquis 5 Eliquis 5 No Eliquis 5 mg 5 mg mg 5 mg mg 5 mg Ab Ab No 1{table QD Ab Aspirin EC Aspirin EC t} Aspirin EC Low Dose 81 Low Dose 81 Low Dose MG MG 81 MG OneTouch OneTouch No BID OneTouch Ultra Blue Ultra Blue Ultra Blue - - - Omeprazole Omeprazole No QD Omeprazole 40 MG 40 MG 40 MG Centrum Centrum No Centrum Silver - Silver - Silver - Furosemide Furosemide No 1{table QD Furosemide 40 MG 40 MG t} 40 MG Metoprolol Metoprolol No QD Metoprolol Succinate Succinate Succinate ER 100 MG ER 100 MG ER 100 MG Arnuity Arnuity No 1{puff} QD Arnuity Ellipta 100 Ellipta 100 Ellipta MCG/ACT MCG/ACT 100 MCG/ACT Levemir Levemir No Levemir FlexTouch FlexTouch FlexTouch 100 UNIT/ML 100 UNIT/ML 100 UNIT/ML Allopurinol Allopurinol No QD Allopurino 300 MG 300 MG l 300 MG Clopidogrel Clopidogrel No 1{table QD Clopidogre Bisulfate Bisulfate t} l 75 MG 75 MG Bisulfate 75 MG hydrALAZINE hydrALAZINE No 1{table TID hydrALAZIN HCl 100 MG HCl 100 MG t_with_ E HCl 100 food} MG BD Pen BD Pen No BD Pen Needle Mini Needle Mini Needle U/F 31G X 5 U/F 31G X 5 Mini U/F MM MM 31G X 5 MM glipiZIDE glipiZIDE No BID glipiZIDE 10 MG 10 MG 10 MG Otezla 30 Otezla 30 No 1{table BID Otezla 30 MG MG t} MG Gabapentin Gabapentin No 1{capsu Gabapentin 300 MG 300 MG le} 300 MG amLODIPine amLODIPine No QD amLODIPine Besylate 10 Besylate 10 Besylate MG MG 10 MG Fish Oil Fish Oil No 1{capsu QD Fish Oil 1000 MG 1000 MG le} 1000 MG Lisinopril Lisinopril No 1{table BID Lisinopril 20 MG 20 MG t} 20 MG Calcium 600 Calcium 600 No 1{table BID Calcium MG MG t_with_ 600 MG meals} Iron 325 Iron 325 No 1{table QD Iron 325 (65 Fe) MG (65 Fe) MG t} (65 Fe) MG Magnesium Magnesium No 1{table QD Magnesium 250 MG 250 MG t_with_ 250 MG a_meal} Victoza 18 Victoza 18 No QD Victoza 18 MG/3ML MG/3ML MG/3ML Vitamin D Vitamin D No 1{table QD Vitamin D 50 MCG 50 MCG t} 50 MCG (1999 UT) (1999 UT) (1999) BD Pen BD Pen No TID BD Pen Needle Mini Needle Mini Needle U/F 31G X 5 U/F 31G X 5 Mini U/F MM MM 31G X 5 MM Rosuvastati Rosuvastati No 1{table Rosuvastat n Calcium n Calcium t} in Calcium 10 MG 10 MG 10 MG Eliquis 5 Eliquis 5 No Eliquis 5 mg 5 mg mg 5 mg mg 5 mg Ab Ab No 1{table QD Ab Aspirin EC Aspirin EC t} Aspirin EC Low Dose 81 Low Dose 81 Low Dose MG MG 81 MG OneTouch OneTouch No BID OneTouch Ultra Blue Ultra Blue Ultra Blue - - - Omeprazole Omeprazole No QD Omeprazole 40 MG 40 MG 40 MG Centrum Centrum No Centrum Silver - Silver - Silver - Furosemide Furosemide No 1{table QD Furosemide 40 MG 40 MG t} 40 MG Metoprolol Metoprolol No QD Metoprolol Succinate Succinate Succinate ER 100 MG ER 100 MG ER 100 MG Arnuity Arnuity No 1{puff} QD Arnuity Ellipta 100 Ellipta 100 Ellipta MCG/ACT MCG/ACT 100 MCG/ACT Levemir Levemir No Levemir FlexTouch FlexTouch FlexTouch 100 UNIT/ML 100 UNIT/ML 100 UNIT/ML Allopurinol Allopurinol No QD Allopurino 300 MG 300 MG l 300 MG Clopidogrel Clopidogrel No 1{table QD Clopidogre Bisulfate Bisulfate t} l 75 MG 75 MG Bisulfate 75 MG hydrALAZINE hydrALAZINE No 1{table TID hydrALAZIN HCl 100 MG HCl 100 MG t_with_ E HCl 100 food} MG BD Pen BD Pen No BD Pen Needle Mini Needle Mini Needle U/F 31G X 5 U/F 31G X 5 Mini U/F MM MM 31G X 5 MM glipiZIDE glipiZIDE No BID glipiZIDE 10 MG 10 MG 10 MG Otezla 30 Otezla 30 No 1{table BID Otezla 30 MG MG t} MG Gabapentin Gabapentin No 1{capsu Gabapentin 300 MG 300 MG le} 300 MG amLODIPine amLODIPine No QD amLODIPine Besylate 10 Besylate 10 Besylate MG MG 10 MG Fish Oil Fish Oil No 1{capsu QD Fish Oil 1000 MG 1000 MG le} 1000 MG Lisinopril Lisinopril No 1{table BID Lisinopril 20 MG 20 MG t} 20 MG Calcium 600 Calcium 600 No 1{table BID Calcium MG MG t_with_ 600 MG meals} Iron 325 Iron 325 No 1{table QD Iron 325 (65 Fe) MG (65 Fe) MG t} (65 Fe) MG Magnesium Magnesium No 1{table QD Magnesium 250 MG 250 MG t_with_ 250 MG a_meal} hydrALAZINE hydrALAZINE No 1{table TID hydrALAZIN HCl 100 MG HCl 100 MG t_with_ E HCl 100 food} MG BD Pen BD Pen No BD Pen Needle Mini Needle Mini Needle U/F 31G X 5 U/F 31G X 5 Mini U/F MM MM 31G X 5 MM Rosuvastati Rosuvastati No 1{table Rosuvastat n Calcium n Calcium t} in Calcium 10 MG 10 MG 10 MG amLODIPine amLODIPine No QD amLODIPine Besylate 10 Besylate 10 Besylate MG MG 10 MG Centrum Centrum No Centrum Silver - Silver - Silver - Omeprazole Omeprazole No QD Omeprazole 40 MG 40 MG 40 MG Clopidogrel Clopidogrel No 1{table QD Clopidogre Bisulfate Bisulfate t} l 75 MG 75 MG Bisulfate 75 MG Magnesium Magnesium No 1{table QD Magnesium 250 MG 250 MG t_with_ 250 MG a_meal} Furosemide Furosemide No 1{table QD Furosemide 20 MG 20 MG t} 20 MG Calcium 600 Calcium 600 No 1{table BID Calcium MG MG t_with_ 600 MG meals} Otezla 30 Otezla 30 No 1{table BID Otezla 30 MG MG t} MG BD Pen BD Pen No TID BD Pen Needle Mini Needle Mini Needle U/F 31G X 5 U/F 31G X 5 Mini U/F MM MM 31G X 5 MM OneTouch OneTouch No BID OneTouch Ultra Blue Ultra Blue Ultra Blue - - - Victoza 18 Victoza 18 No QD Victoza 18 MG/3ML MG/3ML MG/3ML glipiZIDE glipiZIDE No BID glipiZIDE 10 MG 10 MG 10 MG Omeprazole Omeprazole No Omeprazole 40 MG 40 MG 40 MG Levemir Levemir No Levemir FlexTouch FlexTouch FlexTouch 100 UNIT/ML 100 UNIT/ML 100 UNIT/ML Vitamin D Vitamin D No 1{table QD Vitamin D 50 MCG 50 MCG t} 50 MCG (1999) (1999) (1999) Levemir Levemir No Levemir FlexTouch FlexTouch FlexTouch 100 UNIT/ML 100 UNIT/ML 100 UNIT/ML Iron 325 Iron 325 No 1{table QD Iron 325 (65 Fe) MG (65 Fe) MG t} (65 Fe) MG glipiZIDE glipiZIDE No glipiZIDE 10 MG 10 MG 10 MG Gabapentin Gabapentin No Gabapentin 300 MG 300 MG 300 MG Gabapentin Gabapentin No 1{capsu Gabapentin 300 MG 300 MG le} 300 MG Fish Oil Fish Oil No 1{capsu QD Fish Oil 1000 MG 1000 MG le} 1000 MG Allopurinol Allopurinol No QD Allopurino 300 MG 300 MG l 300 MG Lisinopril Lisinopril No QD Lisinopril 20 MG 20 MG 20 MG Metoprolol Metoprolol No QD Metoprolol Succinate Succinate Succinate ER 100 MG ER 100 MG ER 100 MG Metoprolol Metoprolol No Metoprolol Succinate Succinate Succinate ER 100 MG ER 100 MG ER 100 MG Arnuity Arnuity No 1{puff} QD Arnuity Ellipta 100 Ellipta 100 Ellipta MCG/ACT MCG/ACT 100 MCG/ACT Ab Ab No 1{table QD Ab Aspirin EC Aspirin EC t} Aspirin EC Low Dose 81 Low Dose 81 Low Dose MG MG 81 MG Lisinopril Lisinopril No 1{table QD Lisinopril 20 MG 20 MG t} 20 MG Allopurinol Allopurinol No QD Allopurino 300 MG 300 MG l 300 MG Rosuvastati Rosuvastati No Rosuvastat n Calcium n Calcium in Calcium 10 MG 10 MG 10 MG Eliquis 5 Eliquis 5 Eliquis 5 mg 5 mg mg 5 mg 11-05 mg 5 mg 00:00 :00 Immunizations Ordered Immunization Filled Immunization Date Status Commen ts Source Name Name FLUZONE HIGH DOSE FLUZONE HIGH DOSE 2022-01-04 Completed [facility] OVER 65 10:21:00 - [facility] [address] COVID19 2021-01-25 Com[facility] (Low Dose Vaccine (Low Dose 08:40:00 - [facility] Booster) Booster) [facility] [address] COVID19 2021-01-25 Completed [facility] (Low Dose Vaccine (Low Dose 08:40:00 - [facility] Booster) Booster) [facility] [address] [facility] (Low Dose Vaccine (Low Dose 08:40:00 - [facility] Booster) Booster) [facility] [address] [facility] (Low Dose Vaccine (Low Dose 08:40:00 - [facility] Booster) Booster) [facility] [address] COVID19 2021-01-25 Com[facility] (Low Dose Vaccine (Low Dose 08:40:00 - [facility] Booster) Booster) [facility] [address] COVID19 2021-01-25 Completed [facility] (Low Dose Vaccine (Low Dose 08:40:00 - [facility] Booster) Booster) [facility] [address] COVID19 2021-01-25 Completed [facility] (Low Dose Vaccine (Low Dose 08:40:00 - [facility] Booster) Booster) [facility] COVID36 [address] COVID19 2021-01-25 Completed [facility] Vacc[facility] (Low Dose Vaccine (Low Dose 08:40:00 - [facility] Booster) Booster) [facility] [address] COVID19 2021-01-25 Completed [facility] Vaccine (Low Dose Vaccine (Low Dose 08:40:00 - [facility] H[facility] DOSE FLUZONE HIGH DOSE 2020-11-24 Completed [facility] OVER 65 OVER 65 09:39:00 - [facility] FLUZONE HIGH DOSE FLUZONE HIGH DOSE 2020-11-24 Completed [facility] OVER 65 OVER 65 09:39:00 - [facility] FLUZONE HIGH DOSE FLUZONE HIGH DOSE 2020-11-24 Completed [facility] OVER 65 OVER 65 09:39:00 - [facility] FLUZONE HIGH DOSE FLUZONE HIGH DOSE 2020-11-24 Completed [facility] OVER 65 OVER 65 09:39:00 - [facility] FLUZONE HIGH DOSE FLUZONE HIGH DOSE 2020-11-24 Completed [facility] OVER 65 OVER 65 09:39:00 - [facility] FLUZONE HIGH DOSE FLUZONE HIGH DOSE 2020-11-24 Completed [facility] OVER 65 OVER 65 09:39:00 - [facility] FLUZONE HIGH DOSE FLUZONE HIGH DOSE 2020-11-24 Completed [facility] OVER 65 OVER 65 09:39:00 - [facility] FLUZONE HIGH DOSE FLUZONE HIGH DOSE 2020-11-24 Completed [facility] OVER 65 OVER 65 09:39:00 [facility] FLUZONE HIGH DOSE FLUZONE HIGH DOSE 2020-11-24 Completed [facility] OVER 65 OVER 65 09:39:00 - [facility] FLUZONE HIGH DOSE FLUZONE HIGH DOSE 2020-11-24 Completed [facility] OVER 65 OVER 65 09:39:00 - [facility] FLUZONE HIGH DOSE FLUZONE HIGH DOSE 2020-11-24 Completed [facility] OVER 65 OVER 65 09:39:00 [facility] FLUZONE HIGH DOSE FLUZONE HIGH DOSE 2020-11-24 Completed [facility] OVER 65 OVER 65 09:39:00 [facility] Moderna COVID-19 Moderna COVID-19 2020-04-27 Completed [facility] Vaccine Vaccine 10:19:00 - [facility] Moderna COVID-19 Moderna COVID-19 2020-04-27 Completed [facility] Vaccine Vaccine 10:19:00 - [facility] Moderna COVID-19 Moderna COVID-19 2020-04-27 Completed [facility] Vaccine Vaccine 10:19:00 - [facility] Moderna COVID-19 Moderna COVID-19 2020-04-27 Completed [facility] Vaccine Vaccine 10:19:00 - [facility] Moderna COVID-19 Moderna COVID-19 2020-04-27 Completed [facility] Vaccine Vaccine 10:19:00 - [facility] Moderna COVID-19 Moderna COVID-19 2020-04-27 Completed [facility] Vaccine Vaccine 10:19:00 - [facility] Moderna COVID-19 Moderna COVID-19 2020-04-27 Completed [facility] Vaccine Vaccine 10:19:00 - [facility] Moderna COVID-19 Moderna COVID-19 2020-04-27 Completed [facility] Vaccine Vaccine 10:19:00 - [facility] Moderna COVID-19 Moderna COVID-19 2020-04-27 Completed [facility] Vaccine Vaccine 10:19:00 - [facility] Moderna COVID-19 Moderna COVID-19 2020-04-27 Completed [facility] Vaccine Vaccine 10:19:00 - [facility] Moderna COVID-19 Moderna COVID-19 2020-04-27 Completed [facility] Vaccine Vaccine 10:19:00 - [facility] Moderna COVID-19 Moderna COVID-19 2020-04-27 Completed [facility] Vaccine Vaccine 10:19:00 - [facility] Moderna COVID-19 Moderna COVID-19 2020-03-30 Completed [facility] Vaccine Vaccine 10:19:00 - [facility] Moderna COVID-19 Moderna COVID-19 2020-03-30 Completed [facility] Vaccine Vaccine 10:19:00 - [facility] Moderna COVID-19 Moderna COVID-19 2020-03-30 Completed [facility] Vaccine Vaccine 10:19:00 - [facility] Moderna COVID-19 Moderna COVID-19 2020-03-30 Completed [facility] Vaccine Vaccine 10:19:00 - [facility] Moderna COVID-19 Moderna COVID-19 2020-03-30 Completed [facility] Vaccine Vaccine 10:19:00 - [facility] Moderna COVID-19 Moderna COVID-19 2020-03-30 Completed [facility] Vaccine Vaccine 10:19:00 - [facility] Moderna COVID-19 Moderna COVID-19 2020-03-30 Completed [facility] Vaccine Vaccine 10:19:00 - [facility] Moderna COVID-19 Moderna COVID-19 2020-03-30 Completed [facility] Vaccine Vaccine 10:19:00 - [facility] Moderna COVID-19 Moderna COVID-19 2020-03-30 Completed [facility] Vaccine Vaccine 10:19:00 - [facility] Moderna COVID-19 Moderna COVID-19 2020-03-30 Completed [facility] Vaccine Vaccine 10:19:00 - [facility] Moderna COVID-19 Moderna COVID-19 2020-03-30 Completed [facility] Vaccine Vaccine 10:19:00 - [facility] Moderna COVID-19 Moderna COVID-19 2020-03-30 Completed [facility] Vaccine Vaccine 10:19:00 - [facility] FluAD FluAD 2019-11-20 Completed [facility] 09:54:00 - [facility] FluAD FluAD 2019-11-20 Completed [facility] 09:54:00 - [facility] FluAD FluAD 2019-11-20 Completed [facility] 09:54:00 - [facility] FluAD FluAD 2019-11-20 Completed [facility] 09:54:00 - [facility] FluAD FluAD 2019-11-20 Completed [facility] 09:54:00 - [facility] FluAD FluAD 2019-11-20 Completed [facility] 09:54:00 - [facility] FluAD FluAD 2019-11-20 Completed [facility] 09:54:00 - [facility] FluAD FluAD 2019-11-20 Completed [facility] 09:54:00 - [facility] FluAD FluAD 2019-11-20 Completed [facility] 09:54:00 - [facility] FluAD FluAD 2019-11-20 Completed [facility] 09:54:00 - [facility] FluAD FluAD 2019-11-20 Completed [facility] 09:54:00 - [facility] FluAD FluAD 2019-11-20 Completed [facility] 09:54:00 - [facility] Pneumovax (PPSV23) Pneumovax (PPSV23) 2017-02-27 Completed [facility] 10:19:00 - [facility] Pneumovax (PPSV23) Pneumovax (PPSV23) 2017-02-27 Completed [facility] 10:19:00 [facility] Pneumovax (PPSV23) Pneumovax (PPSV23) 2017-02-27 Completed [facility] 10:19:00 - [facility] Pneumovax (PPSV23) Pneumovax (PPSV23) 2017-02-27 Completed [facility] 10:19:00 [facility] Pneumovax (PPSV23) Pneumovax (PPSV23) 2017-02-27 Completed [facility] 10:19:00 - [facility] Pneumovax (PPSV23) Pneumovax (PPSV23) 2017-02-27 Completed [facility] 10:19:00 - [facility] Pneumovax (PPSV23) Pneumovax (PPSV23) 2017-02-27 Completed [facility] 10:19:00 [facility] Pneumovax (PPSV23) Pneumovax (PPSV23) 2017-02-27 Completed [facility] 10:19:00 [facility] Pneumovax (PPSV23) Pneumovax (PPSV23) 2017-02-27 Completed [facility] 10:19:00 [facility] Pneumovax (PPSV23) Pneumovax (PPSV23) 2017-02-27 Completed [facility] 10:19:00 - [facility] Pneumovax (PPSV23) Pneumovax (PPSV23) 2017-02-27 Completed [facility] 10:19:00 [facility] Pneumovax (PPSV23) Pneumovax (PPSV23) 2017-02-27 Completed [facility] 10:19:00 [facility] Vital Signs Vital Name Observation Time Observation Value Comments Source height 2022-01-04 10:00:00 77.5 [in_i] [facility] weight 2022-01-04 10:00:00 365.3 [lb_av] [facility] temperature 2022-01-04 10:00:00 97.9 [degF] [facility] bmi 2022-01-04 10:00:00 42.76 kg/m2 [facility] oximetry 2022-01-04 10:00:00 98 % [facility] respiratory rate 2022-01-04 10:00:00 18 /min Comm on [facility] blood pressure 2022-01-04 10:00:00 137 mm[Hg] [facility] systolic [facility] blood pressure 2022-01-04 10:00:00 81 mm[Hg] [facility] diastolic [facility] Systolic blood 2021-11-11 18:30:00 144 mm[Hg] [facility] pressure Medicine Diastolic blood 2021-11-11 18:30:00 66 mm[Hg] [facility] pressure Medicine Heart rate 2021-11-11 18:25:00 63 /min [facility] Body height 2021-11-11 18:25:00 200.7 cm [facility] Body weight 2021-11-11 18:25:00 166.017 kg [facility] BMI 2021-11-11 18:25:00 41.23 kg/m2 [facility] height 2021-11-04 10:30:00 77.5 [in_i] [facility] weight 2021-11-04 10:30:00 365 [lb_av] [facility] temperature 2021-11-04 10:30:00 97.3 [degF] [facility] bmi 2021-11-04 10:30:00 42.72 kg/m2 [facility] oximetry 2021-11-04 10:30:00 94 % Common S [facility] respiratory rate 2021-11-04 10:30:00 18 /min Comm on [facility] blood pressure 2021-11-04 10:30:00 122 mm[Hg] Common [facility] - systolic [facility] blood pressure 2021-11-04 10:30:00 76 mm[Hg] [facility] - diastolic [facility] height 2021-11-04 10:40:00 77.5 [in_i] Common [facility] weight 2021-11-04 10:40:00 365 [lb_av] Common [facility] temperature 2021-11-04 10:40:00 97.3 [degF] Common [facility] bmi 2021-11-04 10:40:00 42.72 kg/m2 Common [facility] oximetry 2021-11-04 10:40:00 94 % Common [facility] respiratory rate 2021-11-04 10:40:00 18 /min Comm on [facility] blood pressure 2021-11-04 10:40:00 122 mm[Hg] Common [facility] - systolic [facility] blood pressure 2021-11-04 10:40:00 76 mm[Hg] [facility] - diastolic [facility] height 2021-10-04 09:50:00 80 [in_i] Common [facility] weight 2021-10-04 09:50:00 365.0 [lb_av] Common [facility] temperature 2021-10-04 09:50:00 96.9 [degF] [facility] bmi 2021-10-04 09:50:00 40.09 kg/m2 [facility] oximetry 2021-10-04 09:50:00 97 % [facility] respiratory rate 2021-10-04 09:50:00 18 /min Comm on [facility] - [facility] blood pressure 2021-10-04 09:50:00 139 mm[Hg] [facility] - systolic [facility] blood pressure 2021-10-04 09:50:00 63 mm[Hg] [facility] - diastolic [facility] HEIGHT 2021-09-29 08:12:00 203.2 cm WEIGHT 2021-09-29 08:12:00 167.831 kg HEIGHT 2021-09-29 08:12:00 203.2 cm WEIGHT 2021-09-29 08:12:00 167.831 kg HEIGHT 2021-09-29 08:12:00 203.2 cm WEIGHT 2021-09-29 08:12:00 167.831 kg HEIGHT 2021-09-23 15:02:00 203.2 cm WEIGHT 2021-09-23 15:02:00 167.831 kg HEIGHT 2021-09-23 15:02:00 203.2 cm WEIGHT 2021-09-23 15:02:00 167.831 kg HEIGHT 2021-09-23 15:02:00 203.2 cm WEIGHT 2021-09-23 15:02:00 167.831 kg Systolic blood 2021-09-23 18:09:00 142 mm[Hg] [facility] pressure Medicine Diastolic blood 2021-09-23 18:09:00 70 mm[Hg] [facility] pressure Medicine Heart rate 2021-09-23 18:08:00 60 /min [facility] Body height 2021-09-23 18:08:00 203.2 cm [facility] Body weight 2021-09-23 18:08:00 167.831 kg [facility] BMI 2021-09-23 18:08:00 40.65 kg/m2 [facility] height 2021-08-31 11:20:00 80 [in_i] [facility] weight 2021-08-31 11:20:00 371.2 [lb_av] Common [facility] temperature 2021-08-31 11:20:00 97.9 [degF] Common [facility] bmi 2021-08-31 11:20:00 40.77 kg/m2 [facility] oximetry 2021-08-31 11:20:00 97 % [facility] respiratory rate 2021-08-31 11:20:00 17 /min Comm on [facility] blood pressure 2021-08-31 11:20:00 132 mm[Hg] Common [facility] - systolic [facility] blood pressure 2021-08-31 11:20:00 75 mm[Hg] Common [facility] - diastolic [facility] height 2021-05-17 09:20:00 80 [in_i] Common [facility] weight 2021-05-17 09:20:00 371.5 [lb_av] [facility] temperature 2021-05-17 09:20:00 97.8 [degF] Common [facility] bmi 2021-05-17 09:20:00 40.81 kg/m2 [facility] oximetry 2021-05-17 09:20:00 98 % Common [facility] respiratory rate 2021-05-17 09:20:00 19 /min Comm on [facility] blood pressure 2021-05-17 09:20:00 138 mm[Hg] [facility] - systolic [facility] blood pressure 2021-05-17 09:20:00 68 mm[Hg] [facility] - diastolic [facility] height 2021-02-16 08:50:00 80 [in_i] [facility] weight 2021-02-16 08:50:00 378.3 [lb_av] [facility] temperature 2021-02-16 08:50:00 97.7 [degF] [facility] bmi 2021-02-16 08:50:00 41.55 kg/m2 Common [facility] oximetry 2021-02-16 08:50:00 97 % [facility] respiratory rate 2021-02-16 08:50:00 18 /min Comm on [facility] blood pressure 2021-02-16 08:50:00 133 mm[Hg] Common [facility] - systolic [facility] blood pressure 2021-02-16 08:50:00 65 mm[Hg] Common [facility] - diastolic [facility] height 2020-11-24 08:40:00 80 [in_i] Common [facility] weight 2020-11-24 08:40:00 372.8 [lb_av] [facility] temperature 2020-11-24 08:40:00 96.8 [degF] Common [facility] bmi 2020-11-24 08:40:00 40.95 kg/m2 [facility] oximetry 2020-11-24 08:40:00 96 % [facility] respiratory rate 2020-11-24 08:40:00 20 /min Comm on [facility] blood pressure 2020-11-24 08:40:00 138 mm[Hg] Common [facility] - systolic [facility] blood pressure 2020-11-24 08:40:00 82 mm[Hg] Common [facility] - diastolic [facility] height 2020-11-24 09:00:00 80 [in_i] Common [facility] weight 2020-11-24 09:00:00 372.8 [lb_av] [facility] temperature 2020-11-24 09:00:00 96.8 [degF] Common [facility] bmi 2020-11-24 09:00:00 40.95 kg/m2 Common [facility] oximetry 2020-11-24 09:00:00 96 % [facility] - [facility] respiratory rate 2020-11-24 09:00:00 20 /min [facility] - [facility] blood pressure 2020-11-24 09:00:00 138 mm[Hg] [facility] - systolic [facility] blood pressure 2020-11-24 09:00:00 82 mm[Hg] [facility] - diastolic [facility] Heart rate 2021-09-30 12:01:00 92 /min [facility] Systolic blood 2021-09-30 12:00:00 153 mm[Hg] [facility] Diastolic blood 2021-09-30 12:00:00 68 mm[Hg] [facility] Body temperature 2021-09-30 12:00:00 36.17 Saumya [facility] Respiratory rate 2021-09-30 12:00:00 17 /min [facility] Oxygen saturation in 2021-09-30 12:00:00 95 /min [facility] Arterial blood by Medical Ce nter Pulse oximetry Body height 2021-09-29 08:12:00 203.2 cm [facility] Body weight 2021-09-29 08:12:00 167.831 kg [facility] BMI 2021-09-29 08:12:00 40.65 kg/m2 [facility] Systolic (mm Hg) 2021-06-15 15:07:00 Car Dawkins Diastolic (mm Hg) 2021-06-15 15:07:00 Mariam enrique [place] Heart Rate 2021-06-15 15:07:00 [facility] Respitory Rate 2021-06-15 15:07:00 Rigoberto Sutton Height 2021-06-15 15:07:00 [facility]2 [facility] 2021-06-15 15:07:00 [facility] BMI Calculated 2021-06-15 15:07:00 Rigoberto Sutton Procedures Procedure Date / Time Performing Clinician Source Performed ELECTROCARDIOGRAM COMPLETE 2021-11-11 19:02:02 Lilian Deleon [facility] ELECTROCARDIOGRAM COMPLETE 2021-11-11 14:02:02 B [facility] 2D ECHO W/ DOPPLER 2021-09-30 09:27:[facility] POCT-GLUCOSE METER 2021-09-30 06:55:00 Adrienne [facility] XR CHEST 1 VIEW PORTABLE / 2021-09-30 05:37:00 Joseph Rodriguez [facility] BASIC METABOLIC PANEL 2021-09-30 04:22:00 [facility] ONLY[facility] 2021-09-30 04:22:00 Jennifer [facility] ECG 12-LEAD 2021-09-30 03:41:43 Jennifer [facility] POCT-GLUCOSE METER 2021-09-29 20:57:00 Adrienne [facility] POCT-ACT 2021-09-29 16:03:00 Adrienne [facility] POCT-GLUCOSE METER 2021-09-29 16:00:00 Adrienne [facility] ECG 12-LEAD 2021-09-29 15:42:23 [facility] 12-[facility]AD 2021-09-29 15:42:23 Unknown, [facility] PREPARE RBC 2021-09-29 15:30:[address] [facility] POCT-ACT 2021-09-29 15:00:00 Adrienne [facility] POCT-ACT 2021-09-29 14:01:00 Adrienne [facility] IMPLANTATION, AORTIC VALVE, 2021-09-29 11:28:00 Adrienne [facility] TRANSCATHETER [facility] TRANSESOPHAGEAL ECHO 2021-09-29 10:44:[facility] PULSED DOPPLER 2021-09-29 10:23:49 Adrienne [facility] COLOR-FLOW MAPPING 2021-09-29 10:23:48 Lilian Deleon [facility] ABORH, MANUAL 2021-09-29 09:00:00 Lilian Deleon [facility] CARDIAC CATH REPORT - SCAN 2021-09-29 [facility]:00[facility] 2021-09-23 19:54:26 Lilian Deleon [facility] TYPE AND SCREEN, AUTOMATED 2021-09-23 15:11:00 Lilian Deleon [facility] CBC W/PLT COUNT & AUTO 2021-09-23 15:11:00 Lilian Deleon [facility] DIFFERENTIAL [facility] CBC W/PLT COUNT & AUTO 2021-09-23 15:11:00 Lilian Deleon [facility] DIFFERENTIAL [facility] COMPREHENSIVE METABOLIC 2021-09-23 15:11:00 Lilian Deleon [facility] PANEL [facility] B-TYPE NATRIURETIC FACTOR 2021-09-23 15:11:00 Lilian Deleon [facility] (BNP) [facility] PROTHROMBIN TIME/INR 2021-09-23 15:11:[address] [facility] ELECTROCARDIOGRAM COMPLETE 2021-09-23 14:54:26 Yvan [facility] ([facility]) HEART CATH 2021-09-23 09:58:37 [facility] ([facility]) LAB 2021-09-23 09:58:37 [facility] ([facility]) DIAG \T\ IMAGING 2021-09-23 09:58:37 [facility] ([facility]) EKG 2021-09-23 09:58:37 [facility] ([facility]) CT CHEST/CARDIAC 2021-09-23 09:58:37 [facility] ([facility]) US/DOPPLER HEAD/NECK 2021-09-23 09:58:37 B [facility] Plan of Care Planned Activity Planned Date Details Comments Source Future Scheduled 2021-11-11 Screening for malignant [facility] 15:50:24 neoplasm of colon Medicine (procedure) [code = 833146446] Future Scheduled 2021-11-11 COVID-19 Vaccine (#1) [facility] Test 15:50:24 [code = COVID-19 Medicine Vaccine (#1)] Future Scheduled 2021-11-11 Pneumococcal 65+ (1 - [facility] Test 15:50:24 PCV) [code = Medicine Pneumococcal 65+ (1 - PCV)] Future Scheduled 2021-11-11 TETANUS SHOT (ADULT) [facility] Test 15:50:24 [code = TETANUS SHOT Medicin e (ADULT)] Future Scheduled 2021-11-11 Diabetic foot [facility] of Test 15:50:24 examination Medicine (regime/therapy) [code = 394143119] Future Scheduled 2021-11-11 ANNUAL DIABETIC [facility] of Test 15:50:24 RETINOPATHY SCREENING Medici ne [code = ANNUAL DIABETIC RETINOPATHY SCREENING] Future Scheduled 2021-11-11 BMI FOLLOW UP PLAN [facility] Test 15:50:24 [code = BMI FOLLOW UP Medici ne PLAN] Future Scheduled 2021-11-11 Hepatitis C screening [facility] Test 15:50:24 (procedure) [code = Medicine [id number]] Future Scheduled 2021-11-11 ZOSTER VACCINE (1 of 2) [facility] Test 15:50:24 [code = ZOSTER VACCINE Medic ine (1 of 2)] Future Scheduled 2021-11-11 MEDICARE AWV (Initial) B [facility] of Test 15:50:24 [code = MEDICARE AWV Medicin e (Initial)] Future Scheduled 2021-11-11 FALL SCREEN [code = [facility] of Test 15:50:24 FALL SCREEN] Medicine Future Scheduled 2021-11-11 FLU VACCINE > 6 MONTHS B [facility] Test 15:50:24 [code = FLU VACCINE > 6 Medi cine MONTHS] Future Scheduled 2021-10-28 INFLUENZA VACCINE (#1) [facility] 00:00:00 [code = INFLUENZA Medical Ce nter VACCINE (#1)] Future Scheduled 2021-09-[address] [facility] 00:00:00 measurement (procedure) [facility] [code = [id number]] Future Scheduled 2021-09-23 Screening for malignant [facility] Test 17:50:20 neoplasm of colon Medicine (procedure) [code = [id number]] Future Scheduled 2021-09-23 Pneumococcal 65+ (1 - [facility] Test 17:50:20 PCV) [code = Medicine Pneumococcal 65+ (1 - PCV)] Future Scheduled 2021-09-23 TETANUS SHOT (ADULT) [facility] Test 17:50:20 [code = TETANUS SHOT Medicin e (ADULT)] Future Scheduled 2021-09-23 Diabetic foot [facility] Test 17:50:20 examination Medicine (regime/therapy) [code = [id number]] Future Scheduled 2021-09-23 ANNUAL DIABETIC [facility] of Test 17:50:20 RETINOPATHY SCREENING Medici ne [code = ANNUAL DIABETIC RETINOPATHY SCREENING] Future Scheduled 2021-09-23 BMI FOLLOW UP PLAN [facility] 17:50:20 [code = BMI FOLLOW UP Medici ne PLAN] Future Scheduled 2021-09-23 Hepatitis C screening [facility] Test 17:50:20 (procedure) [code = Medicine [id number]] Future Scheduled 2021-09-23 ZOSTER VACCINE (1 of 2) [facility] 17:50:20 [code = ZOSTER VACCINE Medic ine (1 of 2)] Future Scheduled 2021-09-23 FALL SCREEN [code = [facility] Test 17:50:20 FALL SCREEN] Medicine Future Scheduled 2021-09-23 COVID-19 Vaccine (4 - [facility] Test 17:50:20 Booster for Moderna Medicine series) [code = COVID-19 Vaccine (4 - Booster for Moderna series)] Future Scheduled 2021-09-23 FLU VACCINE > 6 MONTHS B [facility] 17:50:20 [code = FLU VACCINE > 6 Medi cine MONTHS] Future Scheduled 2021-09-23 MEDICARE AWV (Initial) B [facility] 17:50:20 [code = MEDICARE AWV Medicin e (Initial)] Future Scheduled 2021-05-25 COVID-19 VACCINE (4 - [facility] 00[facility]:00 [facility]oster for [facility] series) [code = COVID-19 VACCINE (4 - Booster for Moderna series)] Future Scheduled 2018-02-27 PNEUMOCOCCAL 65+ YRS ([address] [facility] 00:00:00 - PCV) [code = Medical Cente r PNEUMOCOCCAL 65+ YRS (2 - PCV)] Future Scheduled 2013-01-[address] [facility] 00:00:00 WELLNESS (YEAR 2 or Medical Center FIRST YEAR if no IPPE) [code = MEDICARE ANNUAL WELLNESS (YEAR 2 or FIRST YEAR if no IPPE)] Future Scheduled 2012-02-[address] [facility] Test 00:00:00 aneurysm screening Medical C enter (procedure) [code = 083492255] Future Scheduled 1997 SHINGLES VACCINES ([address] [facility] 00:00:00 2) [code = SHINGLES Medical Center VACCINES (1 of 2)] Future Scheduled 1966 DTAP/TDAP/TD VACCINES [facility] 00:00:00 (1 - Tdap) [code = Medical C enter DTAP/TDAP/TD VACCINES (1 - Tdap)] Future Scheduled 1965 HEPATITIS C SCREENING [facility] 00:00:00 [code = HEPATITIS C Medical Center SCREENING] Future Scheduled 1957 DIABETIC EYE EXAM [code [facility] 00:00:00 = DIABETIC EYE EXAM] Medical Center Future Scheduled [address] [facility] examination Medical Center (regime/therapy) [code = 967078027] Future Scheduled 1957 Urine screening for [facility] 00:00:00 protein (procedure) [facility] [code = 039548616] Future Scheduled 1947 CT Colonography (combo) [facility] 00:00:00 [code = CT Colonography [facility] (combo)] Future Scheduled 1947 Screening for malignant [facility] Test 00:00:00 neoplasm of colon Medical Ce nter (procedure) [code = 179439484] Future Scheduled 1947 Screening for malignant [facility] Test 00:00:00 neoplasm of colon Medical Ce nter (procedure) [code = 133245446] Future Scheduled 1947 Screening for malignant [facility] 00:00:00 neoplasm of colon Medical Ce nter (procedure) [code = 327865080] Future Scheduled 1947 Screening for malignant [facility] Test 00:00:00 neoplasm of colon Medical Ce nter (procedure) [code = 202827214] Future Scheduled 1945 Sigmoidoscopy [code = [facility] 00:[facility]:00 Sigmoidoscopy] Medical Cente r Encounters Start End Encounter Admission Attending Care Care Encounter Source Date/Time Date/Time Type Type Clinicians Facility Department ID 2021-12-31 Outpatient Diaz, STLMLC [facility] [id number] Common 10:27:01 Yann [id number] [facility] 2021-05-17 Outpatient Diaz, STLMLC [facility] [id number] Common 09:00:01 Yann [facility] 2021-05-14 Outpatient Diaz, STLMLC [facility] [id number] Common 10:41:02 Yann [id number] [facility] 2021-03-24 Outpatient Diaz, STLMLC STLC [id number] Common 14:26:44 Yann [id number] [facility] 2021-03-24 Outpatient Diaz, STLC STLC [id number] Common 13:19:52 Yann [id number] [facility] 2021-03-24 Outpatient Diaz, [facility] STLC [id number] Common 13:09:16 Yann [id number] [facility] 2021-03-24 Outpatient Diaz, [facility] STLC [id number] Common 12:43:25 Yann 35953 [facility] 2021-03-24 Outpatient Diaz, STLMLC [facility] [id number] Common 12:42:35 Yann [id number] [facility] 2021-03-24 Outpatient Diaz, STLMLC STLC [id number] Common 12:42:21 Yann 24227 [facility] 2021-03-24 Outpatient Diaz, [facility] STLC [id number] Common 11:17:23 Yann 73859 [facility] 2021-03-24 Outpatient Diaz, [facility] STLC [id number] Common 11:15:43 Yann [id number] [facility] 2021-03-24 [facility], [facility] [id number] Common 11:15:21 Yann [id number] [facility] 2021-03-24 Outpatient Diaz, STLC [facility] [id number] Common 11:00:50 Yann [id number] [facility] 2022-06-15 2022-06-15 Outpatient MEHULIE GISELE [id number] Memoria 10:00:00 10:00:00 07 l Juancho 2022-01-04 2022-01-04 OFFICE [facility] [id number] Co mmon 00:00:00 00:00:00 VISIT Spirit ESTAB PT - CHI LEVEL 4 [facility] 2021-11-11 2021-11-11 Office TAYLOR DELEON [id number] [facility] 12:31:35 15:46:52 Visit LILINA AMBULATOR 350.1.13.21 College Y [id number] of [id number] Medi darrin 300 e 2021-11-11 2021-11-11 Outpatient [facility] [id number] [facility] 14:33:38 15:42:54 Colleg e of Medicin e 2021-11-11 2021-11-11 Outpatient [facility] [id number] [facility] 12:31:21 15:01:28 Colleg e of Medicin e 2021-11-04 2021-11-04 OFFICE [facility] [id number] Co mmon 00:00:00 00:00:00 VISIT Spirit ESTAB PT - CHI LEVEL 4 [facility] 2021-11-04 2021-11-04 SUB ANNUAL [facility] [id number] Common 00:00:00 00:00:00 MCR Spirit WELLNESS - CHI VISIT [facility] 2021-10-26 2021-10-26 Telephone Antonino [facility] [id number] 00:00[facility]00 00:00:00 [facility] 2021-10-11 2021-10-11 Documentat Miguel [facility] [id number] 00:[facility]00 00:00:00 ion Diya Alexis [facility] 2021-10-04 2021-10-04 (HOSP F/U) [facility] [id number] Common 00:00:00 00:00:00 [facility] Follow Up - [facility] 2021-10-01 2021-10-01 Outpatient BCM [facility] [id number] [facility] 10:35:39 11:01:49 [facility]in [facility] 2021-10-01 2021-10-01 (TEL) [facility] [id number] Co mmon 00:00:00 00:00:00 Spirit - [facility] 2021-09-30 2021-09-30 Outpatient BCM [facility] [id number] [facility] 00:00:00 23:59:00 [facility] 2021-09-29 2021-09-30 Inpatient [facility] Surgery [id number] [facility] 08:04:00 13:30:00 [facility] 2021-09-29 2021-09-30 Hospital [facility] [id number] [facility] 08:04:00 13:30:00 Encounter [facility] 2021-09-29 2021-09-29 Outpatient [facility] [id number] [facility] 08:04:00 23:59:00 [facility] 2021-09-29 2021-09-29 Surgery [facility] [id number] [facility] [address] 12:28:00 16:43:00 [facility] 2021-09-29 2021-09-29 Anesthesia Tolpin, [facility] [id number] 11:41:00 15:31:[address] [facility] 2021-09-29 2021-09-29 Travel [facility] [id number] [facility] 00:[facility] 00:00:00 [facility] 2021-09-23 2021-09-24 Outpatient BCM [facility] [id number] [facility] 16:04:57 08:01:49 [facility] 2021-09-23 2021-09-23 Office Maria D [facility] [id number] 15:00:00 15:30:00 Visit Kartik [facility] 2021-09-23 2021-09-23 Outpatient JERSON JOEL SLEJhonatan [id number] SLEJhonatan 15:05:44 15:05:44 KARTIK 2021-09-23 2021-09-23 Office TAYLOR DELEON [id number] [facility] 09:58:37 14:43:11 Visit LILIAN AMBULATOR 350.1.13.21 College Y 0.2.7.2.686 of [id number] Medi darrin 300 e 2021-09-23 2021-09-23 Outpatient [facility] [id number] [facility] 09:58:28 14:42:29 [facility]in [facility] 2021-09-23 2021-09-23 Outpatient [facility] [id number] [facility] 09:53:54 13:13:16 [facility] 2021-09-23 2021-09-23 Orders Blayne [facility] [id number] 00:00[facility]00 00:00:[address] [facility] 2021-08-31 2021-08-31 OFFICE STLMLC STLMLC [id number] Co mmon 00:00:00 00:00:00 VISIT Ronak MCALLISTER PT - CHI LEVEL 4 [facility] 2021-08-24 2021-08-[address] [facility] [id number] [facility] 09:27:00 09:27:00 Olanike [id number] [facility] 2021-08-24 2021-08-24 Outpatient VALDEMAR Shah [facility] [id number] [facility] 09:27:00 09:27:00 Olanike 01 [facility] 2021-08-16 2021-08-16 (TEL) STLMLC STLMLC [id number] Co mmon 00:00:00 00:00:00 Spirit - ALTAGRACIA [facility] 2021-06-15 2021-06-16 Outpatient nullFlavo MNA [id number] Memoria 15:30:00 04:59:59 r Neurology 06 david Dawkins 2021-06-15 2021-06-15 Outpatient Reggie ANGELICAERICKA ANGELICAERICKA [id number] 10:30:00 23:59:59 Sam Isabela Collins 2021-06-15 2021-06-15 Outpatient MHIE MHIE [id number] [facility]oria 10:30:00 10:30:00 06 david Dawkins 2021-05-17 2021-05-17 OFFICE STLMLC STLMLC [id number] Co mmon 00:00:00 00:00:00 VISIT Spirit ESTAB PT - CHI LEVEL 4 [facility] 2021-02-16 2021-02-16 OFFICE STLMLC STLMLC [id number] Co mmon 00:00:00 00:00:00 VISIT [facility] ESTAB PT - CHI LEVEL 4 [facility] 2020-12-15 2020-12-15 (TEL) STLMLC STLMLC [id number] Co mmon 00:00:00 00:00:00 [facility] 2020-11-24 2020-11-24 OFFICE STLMLC STLMLC [id number] Co mmon 00:00:00 00:00:00 VISIT Spirit ESTAB PT - CHI LEVEL 4 [facility] 2020-11-24 2020-11-24 SUB ANNUAL STLMLC STLMLC [id number] Common 00:00:00 00:00:00 MCR Spirit WELLNESS - CHI VISIT [facility] 2020-10-27 2020-10-27 Outpatient STLMLC STLMLC [id number] Common 00:00:00 00:00:00 [facility] 2020-09-23 2020-09-23 Outpatient STLMLC STLMLC [id number] Common 00:00:00 00:00:00 [facility] 2020-09-17 2020-09-17 Outpatient STLMLC STLMLC [id number] Common 00:00:00 00:00:00 [facility] 2020-08-25 2020-08-25 Outpatient STLMLC STLMLC [id number] Common 00:00:00 00:00:00 Spirit [facility] 2020-06-24 2020-06-26 Outside nullFlavo MNA [id number] Memoria 13:59:45 04:59:59 Medical r Neurology 00 l Records Brooks Dawkins 2020-06-24 2020-06-25 Outpatient MHMISCHER MHMISCHER [id number] 08:59:45 23:59:59 00 2020-06-12 2020-06-13 Outpatient nullFlavo MNA [id number] Memoria 15:30:00 04:59:59 r Neurology 05 l Brooks Dawkins 2020-06-12 2020-06-12 Outpatient Reggie, MHMISCHER MHMISCHER [id number] 10:30:00 23:59:59 Sam Hailee Collins 2020-06-12 2020-06-12 Ambulatory nullFlavo MNA [id number] Memoria 15:30:00 15:30:00 Pre-Reg r Neurology 04 l Brooks Dawkins 2020-06-12 2020-06-12 Outpatient MHIE MHIE [id number] [facility]oria 10:30:00 10:30:00 05 david Dawkins 2020-06-12 2020-06-12 Outpatient MHIE MHIE [id number] [facility]oria 10:30:00 10:30:00 04 david Dawkins 2020-06-12 2020-06-12 Outpatient Reggie, MHMISCHER MHMISCHER [id number] 10:30:00 10:30:00 Sambhumi Collins 2020-05-18 2020-05-18 Outpatient STLMLC STLMLC [id number] Common 00:00:00 00:00:00 [facility] 2020-04-07 2020-04-07 Outpatient STLMLC STLMLC [id number] Common 00:00:00 00:00:00 [facility] 2020-02-18 2020-02-18 Outpatient STLMLC STLMLC [id number] Common 00:00:00 00:00:00 [facility] 2020-02-06 2020-02-06 Outpatient STLMLC STLMLC [id number] Common 00:00:00 00:00:00 [facility] 2019-11-20 2019-11-20 Outpatient STLMLC STLMLC [id number] Common 00:00:00 00:00:00 [facility] 2019-11-20 2019-11-20 Outpatient STLMLC STLMLC [id number] Common 00:00:00 00:00:00 [facility] 2019-11-20 2019-11-20 Outpatient STLMLC STLMLC [id number] Common 00:00:00 00:00:00 [facility] 2019-08-19 2019-08-19 Out[facility] [id number] Common 16:15:00 16:15:[address] [facility] 2019-08-16 2019-08-16 Outpatient [facility] [id number] Common 09:45:00 09:45:[address] [facility] 2019-08-09 2019-08-09 Outpatient [facility] [id number] Common 15:20:00 15:20:[address] [facility] 2019-06-14 2019-06-15 Outpatient nullFlavo MNA [id number] Memoria 15:45:00 04:59:59 r Neurology 03 l Brooks Deshpandeann 2019-06-14 2019-06-14 Outpatient MEHUL ParedesMISCHER MHMISCHER [id number] 10:45:00 23:59:59 Sambhumi Collins 2019-06-14 2019-06-14 Outpatient MHIE MHIE [id number] [facility]oria 10:45:00 10:45:00 03 david Dawkins 2019-05-23 2019-05-23 Ambulatory nullFlavo MNA [id number] Memoria 14:00:00 14:00:00 Pre-Reg r Neurology 02 l Brooks Dawkins 2019-05-23 2019-05-23 Outpatient MHIE MHIE [id number] Memoria 09:00:00 09:00:00 02 david Dawkins 2019-05-23 2019-05-23 Outpatient Reggie MISCHER MHMISCHER [id number] 09:00:00 09:00:00 Sam Collins 2019-05-22 2019-05-22 Outpatient [facility] [id number] Common 14:45:00 14:45:[address] [facility] 2019-05-13 2019-05-13 Outpatient [facility] [id number] Common 10:33:00 10:33:[address] [facility] 2019-05-02 2019-05-02 Outpatient [facility] [id number] Common 16:42:00 16:42:[address] [facility] 2019-04-29 2019-04-29 Outpatient [facility] [id number] Common 08:36:00 08:36:[address] [facility] 2019-04-24 2019-04-24 Outpatient [facility] [id number] Common 13:15:00 13:15:[address] [facility] 2019-04-23 2019-04-23 Outpatient [facility] [id number] Common 15:22:00 15:22:[address] [facility] 2019-03-13 2019-03-13 Outpatient [facility] [id number] Common 13:30:00 13:30:[address] [facility] 2018-05-17 2018-05-17 Outpatient MEHULIE GISELE [id number] Memoria 09:00:00 09:00:00 01 david Dawkins 2017-05-18 2017-05-18 Outpatient GISELE JAQUEZ [id number] [facility] 09:00:00 09:00:00 00 david Dawkins Results Test Description Test Time Test Comments Results Result [facility] e Comments 2D Echo Ejection [facility] W/Doppler(CW/PW/ 4 ECHO HEARTLAB [facility]) 13:05:06 [facility] RAD, CHEST, 1 post-operative VIEW, NON DEPT 4 day 1Reason for 07:49:00 exam:->s/p [facility] be performed at CENTERName: Sebastian NEWSOME : bedside?->Yes 1945 Sex: M FINAL REPORT RAD, CHEST, 1 VIEW, NON DEPT INDICATION: s/p tavr COMPARISON: None FINDINGS: Portable frontal view of the chest. IMPRESSION: No focal lung consolidation, pleural effusion or pneumothorax. Cardiomediastinal silhouette is magnified by technique. Intact osseous structures. Signed: Chico Ortiz [facility] Verified Date/Time: 09/30/2021 07:49:52 -Glucose meter 2021-09-30 07:07:37 Test Item Value Reference Range Interpretation Comme nts POC-Glucose Meter (test code = 128 mg/dL 70-110 H : TESTED AT [facility] [address] [facility]) [facility], 7[address]: Car Conditioner/Techni edgar ID = [id number] for MYNOR OSORIO Lab Interpretation (test code = Abnormal 59512-9) [facility] [id number] 07:07:37 Test Item Value Reference Range Interpretation Comments POC-GLUCOSE METER 128 mg/dL 70-110 H : TESTED A T [facility] 67[address] (BEAKER) (test code = BERTNE R [facility], 1538) [address]: Car Conditioner/Techni edgar ID = [id number] for MYNOR OSORIO BASIC METABOLIC [id number] 05:24:00 Test Item Value Reference Range Interpretation Comments SODIUM (BEAKER) 140 meq/L 136-145 (test code = 381) POTASSIUM 4.5 meq/L 3.5-5.1 (BEAKER) (test code = 379) CHLORIDE (BEAKER) 107 meq/L 98-107 (test code = 382) CO2 (BEAKER) 25 meq/L 22-29 (test code = 355) BLOOD UREA 20 mg/dL 7-21 NITROGEN (BEAKER) (test code = 354) CREATININE 1.31 mg/dL 0.57-1.25 H (BEAKER) (test code = 358) GLUCOSE RANDOM 108 mg/dL 70-105 H (BEAKER) (test code = 652) CALCIUM (BEAKER) 8.8 mg/dL 8.4-10.2 (test code = 697) EGFR (BEAKER) 58 Interpretatio n of eGFR (test code = mL/min/1.73 values Stage De scription 1092) sq m Result G1 Jayne l or high >=90 G2 Mildly decreased 60-89 G3a Mildl y to moderately 45-5 9 G3b Moderately to s everely 30-44 G4 Severl y decreased 15-29 G5 Kidney failure <15Reported eGF R is based on the CKD-EPI 2020 equation that d oes not use a race coefficientEsti mated GFR is not as accur ate as Creatinine Montserrat demetrius in predicting glom erular filtration rate . Estimated GFR is not appl icable for dialysis patien ts Car Conditioner ID - PIAYA LCBC (HEMOGRAM ONLY)2021-09-30 04:59:49 Test Item Value Reference Range Interpretation Comments WHITE BLOOD CELL COUNT (BEAKER) 7.0 K/ L 3.5-10.5 (test code = 775) RED BLOOD CELL COUNT (BEAKER) 3.82 M/ L 4.63-6.08 L (test code = 761) HEMOGLOBIN (BEAKER) (test code = 11.4 GM/DL 13.7-17.5 L 410) HEMATOCRIT (BEAKER) (test code = 35.2 % 40.1-51.0 L 411) MEAN CORPUSCULAR VOLUME (BEAKER) 92.1 fL 79.0-92.2 (test code = 753) MEAN CORPUSCULAR HEMOGLOBIN 29.8 pg 25.7-32.2 (BEAKER) (test code = 751) MEAN CORPUSCULAR HEMOGLOBIN CONC 32.4 GM/DL 32.3-36.5 (BEAKER) (test code = 752) RED CELL DISTRIBUTION WIDTH 14.9 % 11.6-14.4 H (AKER) (test code = 412) PLATELET COUNT ([facility]) (test code 76 K/CU MM 150-450 L = 756) MEAN PLATELET VOLUME (AKER) 11.1 fL 9.4-12.4 (test code = 754) NUCLEATED RED BLOOD CELLS (AKER) 0 /100 WBC 0-0 (test code = 413) POCT-GLUCOSE [id number] 22:03:55 Test Item Value Reference Range Interpretation Comments POC-GLUCOSE METER 162 mg/dL 70-110 H : Notified RN/MD: ([facility]) (test code = TESTED AT [place] [address] 15[address]) [facility], [address]: Car Conditioner/Techni edgar ID = [id number] for SA JOVI GODINEZ Transesophageal [id number] 18:57:01Ejection FractionSLE ECHO HEARTLAB MKCKESSON CPACHI [facility] ACTIVATED CLOTTING [id number] 16:21:30 Test Item Value Reference Range Interpretation Comments Activated Clotting Time 144 sec : 74 -137 seconds, (test code = 3184-9) Baselin e: TESTED AT [address], [address]: Car Conditioner/Techni edgar ID = [id number] for Go , [place] [facility][id number] 16:21:30 Test Item Value Reference Range Interpretation Comments ACTIVATED CLOTTING TIME 144 sec : 74 -137 seconds, ([facility]) (test code = Baseli ne: TESTED AT 441) [address], [address]: Car Conditioner/Techni edgar ID = [id number] for Go , [place] POCT-GLUCOSE [id number] 16:13:14 Test Item Value Reference Range Interpretation Comments POC-GLUCOSE METER 120 mg/dL 70-110 H : TESTED A T [place] [address] ([facility]) (test code = [facility], 1538) [address]: Car Conditioner/Techni edgar ID = [id number] for BA TTAD, LUCÍA Prepare [id number] 15:30:00 Test Item Value Reference Range Interpretation Comments CROSSMATCH (test code = COMPATIBLE 8394) Unit ABO (test code = O Pos 3878426) UNIT NUMBER (test code = [id number] 934-0) Status (test code = RETURNED FROM ISSUE 7324761) Blood Bank Product (test RED BLOOD CELLS code = 2263) PRODUCT CODE (test code = Q0920P32 933-2) [id number] 15:15:20 Test Item Value Reference Range Interpretation Comments ACTIVATED CLOTTING TIME 184 sec : 74 -137 seconds, (BEAKER) (test code = Baseli ne: TESTED AT 441) [facility] [address] [facility], [address]: Car Conditioner/Techni edgar ID = [id number] for [place] [id number] 14:20:35 Test Item Value Reference Range Interpretation Comments ACTIVATED CLOTTING TIME 277 sec : 74 -137 seconds, (BEAKER) (test code = Baseli ne: TESTED AT 441) [facility] [address] [facility], [address]: Car Conditioner/Techni edgar ID = [id number] for [place] B-TYPE NATRIURETIC FACTOR (BNP)2021-09-23 16:28:06 Test Item Value Reference Range Interpretation Comments B-TYPE NATRIURETIC PEPTIDE (BEAKER) 91 pg/mL 0-100 (test code = 700) Car Conditioner ID - ADMINCOMPREHENSIVE METABOLIC [id number] 15:51:41 Test Item Value Reference Range Interpretation Comments TOTAL PROTEIN 8.1 gm/dL 6.0-8.3 (BEAKER) (test code = 770) ALBUMIN (BEAKER) 4.2 g/dL 3.5-5.0 (test code = 1145) ALKALINE 88 U/L 40-150 PHOSPHATASE (BEAKER) (test code = 346) BILIRUBIN TOTAL 0.9 mg/dL 0.2-1.2 (BEAKER) (test code = 377) SODIUM (BEAKER) 141 meq/L 136-145 (test code = 381) POTASSIUM (BEAKER) 4.6 meq/L 3.5-5.1 (test code = 379) CHLORIDE (BEAKER) 106 meq/L 98-107 (test code = 382) CO2 (BEAKER) (test 27 meq/L 22-29 code = 355) BLOOD UREA 26 mg/dL 7-21 H NITROGEN (BEAKER) (test code = 354) CREATININE 1.52 mg/dL 0.57-1.25 H (BEAKER) (test code = 358) GLUCOSE RANDOM 98 mg/dL 70-105 (BEAKER) (test code = 652) CALCIUM (BEAKER) 9.5 mg/dL 8.4-10.2 (test code = 697) AST (SGOT) 23 U/L 5-34 (BEAKER) (test code = 353) ALT (SGPT) 25 U/L 6-55 (BEAKER) (test code = 347) EGFR (BEAKER) 48 Interpretatio n of eGFR (test code = 1092) mL/min/1.[address] age Description sq m Result G1 Jayne l or high >=90 G2 Mildly decreased 60-89 G3a Mildl y to moderately 45-5 9 G3b Moderately to s everely 30-44 G4 Severl y decreased 15-29 G5 Kidney failure <15Reported eGF R is based on the CKD-EPI 2020 equation that d oes not use a race coefficientEsti mated GFR is not as accur ate as Creatinine Montserrat demetrius in predicting glom erular filtration rate . Estimated GFR is not appl icable for dialysis patien ts Car Conditioner ID - ADMINCBC W/PLT COUNT & AUTO [id number] 15:40:59 Test Item Value Reference Range Interpretation Comments WHITE BLOOD CELL COUNT (BEAKER) 6.4 K/ L 3.5-10.5 (test code = 775) RED BLOOD CELL COUNT (BEAKER) 4.58 M/ L 4.63-6.08 L (test code = 761) HEMOGLOBIN (BEAKER) (test code = 13.7 GM/DL 13.7-17.5 410) HEMATOCRIT (BEAKER) (test code = 41.2 % 40.1-51.0 411) MEAN CORPUSCULAR VOLUME (BEAKER) 90.0 fL 79.0-92.2 (test code = 753) MEAN CORPUSCULAR HEMOGLOBIN 29.9 pg 25.7-32.2 (BEAKER) (test code = 751) MEAN CORPUSCULAR HEMOGLOBIN CONC 33.3 GM/DL 32.3-36.5 (BEAKER) (test code = 752) RED CELL DISTRIBUTION WIDTH 15.0 % 11.6-14.4 H (BEAKER) (test code = 412) PLATELET COUNT (BEAKER) (test 121 K/CU MM 150-450 L code = 756) MEAN PLATELET VOLUME (BEAKER) 11.2 fL 9.4-12.4 (test code = 754) NUCLEATED RED BLOOD CELLS 0 /100 WBC 0-0 (BEAKER) (test code = 413) NEUTROPHILS RELATIVE PERCENT 64 % (BEAKER) (test code = 429) LYMPHOCYTES RELATIVE PERCENT 25 % (BEAKER) (test code = 430) MONOCYTES RELATIVE PERCENT 7 % (BEAKER) (test code = 431) EOSINOPHILS RELATIVE PERCENT 3 % (BEAKER) (test code = 432) BASOPHILS RELATIVE PERCENT 1 % (BEAKER) (test code = 437) NEUTROPHILS ABSOLUTE COUNT 4.06 K/ L 1.78-5.38 (BEAKER) (test code = 670) LYMPHOCYTES ABSOLUTE COUNT 1.61 K/ L 1.32-3.57 (BEAKER) (test code = 414) MONOCYTES ABSOLUTE COUNT (BEAKER) 0.46 K/ L 0.30-0.82 (test code = 415) EOSINOPHILS ABSOLUTE COUNT 0.21 K/ L 0.04-0.54 (BEAKER) (test code = 416) BASOPHILS ABSOLUTE COUNT (BEAKER) 0.03 K/ L 0.01-0.08 (test code = 417) IMMATURE GRANULOCYTES-RELATIVE 0 % 0-1 PERCENT (BEAKER) (test code = 2801) PROTHROMBIN [id number] 15:38:16 Test Item Value Reference Range Interpretation Comments PROTIME (BEAKER) 13.5 seconds 11.9-14.2 (test code = 759) INR (BEAKER) (test 1.05 See_Comment [Automat ed message] code = 370) The system [employer] generated this result transmitted ref erence range: <=5.90. The reference range was not used to int erpret this result as normal/abnormal . RECOMMENDED COUMADIN/WARFARIN INR THERAPY RANGESSTANDARD DOSE: 2.0 - 3.0 Includes: PROPHYLAXIS for venous thrombosis, systemic embolization; TREATMENT for venous thrombosis and/or pulmonary embolus.HIGH RISK: Target INR is 2.5-3.5 for patients with mechanical heart valves.COVID 19 Asymptomatic IH [id number] 12:19:00 Test Item Value Reference Range Interpretation Comments COVID 19 Asymptomatic Negative Negative A nega tive result is IH AG (test code = presumpti ve and should COVNONPUIAG) be confirmedwit h an FDA authorized mole cular assay, if jamaal nascimento forpatient nirav gememily.A positive result does not rule out co-inf ections withother patho gens.This test detects jeremias th viable (live) and non-viable,SARS -CoV, and SARS-CoV-2. Robert t performance dep ends on theamount of vi kathy (antigen) in th e sample.This robert t has not been FDA cleare d or approved; the t est hasbeen authori zed by FDA under an Em ergency Use Authorizati on(EUA) for use by labo ratories certified under the CLIA thatmeet the requirements to perform moderate, high or waivedcomplexit y tests. 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 [facility] GLOMERULAR FILTRATION 45 ML/MIN Perfor med by [facility] (test code = certif ied wire coating machine operator at [facility]) [facility] - CT ANGIO [id number] 00:00[facility]00 [facility] 1945 Sex: MName: BILLY NEWSOME [facility] : 1945 Age/S: 76 / M [address] [place] [address] Unit #: [id number] Loc: JONAH Fung [address] Phys: Neetu Shah 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 Acct: [id number] Dis Date: Status: REG CLI PHONE #: [phone] Exam Date: 08/24/2021 1111 FAX #: [phone] Reason: AORTIC STENOSIS EXAMS: CPT CODE: [id number] CT ANGIO CHEST 42696 PROCEDURE INFORMATION: Exam: CTA Heart and Coronary Arteries Without and With Contrast Exam date and time: 08/24/2021 10:42 AM Age: 76 years old Clinical indication: Other: Aortic stenosis TECHNIQUE: Imaging protocol: Computed tomographic angiography of the heart, coronary arteries and bypass grafts (when present) without and with contrast including 3D image postprocessing (including evaluation of cardiac structure and morphology, assessment of cardiac function, and evaluation of venous structures, if performed). 3D rendering (Not supervised by radiologist): MIP and/or 3D reconstructed images were created by the technologist. Radiation optimization: All CT scans at this facility use at least one of these dose optimization techniques: automated exposure control; mA and/or kV adjustment per patient size (includes targeted exams where dose is matched to clinical indication); or iterative reconstruction. Contrast material: ISOVUE 370; Contrast volume:100 ml; Contrast route: INTRAVENOUS (IV); Other technique: 3D renderinD reconstructed images were created, reviewed and saved. COMPARISON: No relevant prior studies available. FINDINGS: CALCIUM SCORE: The Calcium score within the aortic valve demonstrates elevated Agatson score of 2074. This is consistent with the patient's history of severe aortic stenosis. Using a 3D workstation the aortic valve was studied in multiple cardiac phases. At the level of the sinus of Valsalva the average diameter measured 32.4 mm in diameter. The perimeter measured 106 mm. There is no significant calcification appreciated at the sino- tubular ridge. The aortic valve annulus was estimated at 26.5 mm with an area of 560 mm2 and a perimeter of 89 mm. Left main height measured approximately 19 mm. Right coronary height measured 15 mm. CARDIAC: Evaluation of the coronary tree was slightly limited. Right coronary artery origin appeared patent. There is mild atherosclerotic plaque appreciated within the proximal and distal right coronary artery. The left main appeared patent with a bifurcation into the LAD and left circumflex. Evaluation of the mid and distal LAD was limited. There is calcified plaque within 1st diagonal vessel. 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 Left atrium appeared normal in AP dimension. The left atrial appendage appears to fill normally with contrast. There is no pericardial effusion. Lungs: Limited views of the lungs are unremarkable. Mediastinal space:Limited views of the mediastinal space is unremarkable. IMPRESSION: Elevated calcium score within the aortic valve consistent with severe aortic stenosis. Mild to moderate calcification within mitral valve. Aortic valve measurements as estimated above. Evaluation of the coronary vessels was limited. PROCEDURE INFORMATION: Exam: CTA Chest Without And With Contrast CTA Abdomenand Pelvis Without And With Contrast Exam date and time: 08/24/2021 10:42 AM Age: 76 years old Clinical indication: Other: Aortic stenosis TECHNIQUE: Imaging protocol: Computed tomographic angiography of the chest without and with contrast. Computed tomographic angiography of the abdomen and pelvis without and with contrast. 3D rendering (Not supervised by radiologist): MIP and/or 3D reconstructed images were created by the technologist. Radiation optimization: All CT scans at this facility use at least one of these dose optimization techniques: automated exposure control; mA and/or kV adjustment per patient size (includes targeted exams where dose is matched to clinical indication); or iterative re construction. Contrast material: ISOVUE 370; Contrast volume: 100 ml; Contrast route: INTRAVENOUS (IV); COMPARISON: No relevant prior studies available. FINDINGS: The ascending aorta is free of significant atherosclerotic calcification. Transverse aortic arch demonstrates a 3 vessel arch configuration with minimal atherosclerotic calcification. The descending thoracic aorta is free of significant atherosclerotic disease. Within the abdominal aorta the celiac trunk and superior mesenteric arteries are patent. There are single renal arteries bilaterally which are patent. The inferior mesenteric artery is patent. 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 The distal aorta measures 16 mm. The right common iliac artery is patent with minimal atherosclerotic disease. The right hypogastric artery is patent. The right external iliac artery is patent. There is minimal posterior plaque to the right common femoral artery. There is a preserved bifurcation to the right common femoral artery. The left common iliac artery demonstrates minimal atherosclerotic calcification and is patent. The left hypogastric artery is patent. There is minimal tortuosity to a patent left external iliac artery. The femoral artery is patent with a preserved bifurcation. His CHEST: Lungs: Unremarkable. No consolidation. No masses. Pleural spaces: Unremarkable. No pneumothorax. No pleural effusion. Heart: Unremarkable. No cardiomegaly. No pericardial effusion. Mild mitral valvular calcification. Aorticvalvular calcification. ABDOMEN AND PELVIS: Liver: No mass. Gallbladder and bile ducts: Unremarkable. No calcified stones. No ductal dilation. Pancreas: Unremarkable. No mass. No ductal dilation. Spleen: Unremarkable. No splenomegaly. Note is made of a small posterior splenule. Adrenal glands: Unremarkable. No mass. Kidneys and ureters: Unremarkable. No solid mass. No hydronephrosis. Stomach and bowel: Unremarkable. No obstruction. No mucosal thickening. Appendix: No evidence of appendicitis. Intraperitoneal space: Unremarkable. No free air. No significant fluid collection. Urinary bladder: Unremarkable. No mass. Reproductive: Unremarkable as visualized. Lymph nodes: Unremarkable. No enlarged lymph nodes. Bones/joints: Mild osteopenia with degenerative changes of the bony pelvis and lumbar spine. IMPRESSION: Unremarkable CTA chest, abdomen, and pelvis. Minimal atherosclerotic calcification to the distal aorta and common iliac arteries. Common femoral and iliac arteries are patent and well preserved. PAGE 3 Signed Report (CONTINUED) Name: BILLY NEWSOME [facility] : 1945 Age /S: 76 / M [address] Unit #: [id number] Loc: JONAH Fung [address] Phys: Neetu Shah Acct: [id number] Dis Date: Status: REG CLI PHONE #: [phone] Exam Date: 08/24/2021 1111 FAX #: [phone] Reason: AORTIC STENOSIS EXAMS: CPT CODE: [id number] CT ANGIO CHEST 80798 (Continued) at 2330 Reported and signed by: Trevor Villarreal M.D CC: Neetu Shah; Yann Diaz DO; Nawaf Dotson MD Technologist:Russell Jimenez, RT(R)(CT) CTDI: DLP: Trnscb Date/Time: 08/24/2021 (2329) [email or web address] Orig Print D/T: S: 08/24/2021 (2329) PAGE 4 Signed Report- CTA ABD PEL W [id number] 00:00:00 [facility]ALINDA [facility]Name: BILLY NEWSOME : 1945 Sex: MName: BILLY NESWOME [facility] Rosalinda Sumner : 1945 Age/S: 76 / M [address] Unit#: [id number] Loc: JONAH Fung [address] Phys: Neetu Shah Acct: [id number] Dis Date: Status: REG CLI PHONE #: [phone] Exam Date: 08/24/2021 1110 FAX #: [phone] Reason: AORTIC STENOSISEXAMS: CPT CODE: [id number] CTA ABD PEL W CONT 67467 PROCEDURE INFORMATION: Exam: CTA Heart and Coronary Arteries Without and With Contrast Exam date and time: 08/24/2021 10:42 AM Age: 76 years old Clinical indication: Other: Aortic stenosis TECHNIQUE: Imaging protocol: Computed tomographic angiographyof the heart, coronary arteries and bypass grafts (when present) without and with contrast [id number] image postprocessing (including evaluation of cardiac structure and morphology, assessment of cardiac function, and evaluation of venous structures, if performed). 3D rendering (Not supervised by radiologist): MIP and/or 3D reconstructed images were created by the technologist. Radiation optimization: All CT scans at this facility use at least one of these dose optimization techniques: automated exposure control; mA and/or kV adjustment per patient size (includes targeted exams where dose is matched to clinical indication); or iterative reconstruction. Contrast material: ISOVUE 370; Contrast volume: 100 ml; Contrast route: INTRAVENOUS (IV); Other technique: 3D renderinD reconstructed images were created, reviewed and saved. COMPARISON: No relevant prior studies available. FINDINGS: CALCIUM SCORE: The Calcium score within the aortic valve demonstrates elevated Agatson score of 2074. This is consistent with the patient's history of severe aortic stenosis. Using a 3D workstation the aortic valve was studied in multiple cardiac phases. At the level of the sinus of Valsalva the average diameter measured 32.4 mm in diameter. The perimeter measured 106 mm. There is no significant calcification appreciated at the sino-tubular ridge. The aortic valve annulus was estimated at 26.5 mm with an area of 560 mm2 and a perimeter of 89 mm. Left main height measured approximately 19 mm. Right coronary height measured 15 mm. CARDIAC: Evaluation of the coronary tree was slightly limited. Right coronary artery origin appeared patent. There is mild atherosclerotic plaque appreciated within the proximal and distal right coronary artery. The left main appeared patent with a bifurcation into the LAD andleft circumflex. Evaluation of the mid and distal LAD was limited. There is calcified plaque within 1st diagonal vessel. PAGE 1 Signed Report (CONTINUED) Name: BILLY NEWSOME [facility] : 1945 Age/S: 76 / M [address] [place], [place] [address] Unit #: [id number] Loc: JONAH Fung [address] Phys: Neetu Shah [facility] Acct: [id number] Dis Date: Status: REG CLI PHONE #: [phone] Exam Date: 08/24/2021 1110 FAX #: [phone] Reason: AORTIC STENOSIS EXAMS: CPT CODE: [id number] CTA ABD PEL W CONT 00116 (Continued) Incidental note was made of mild to moderate calcification within the mitral valve. Left atrium appeared normal in AP dimension. The left atrial appendage appears to fill normally with contrast. There is no pericardial effusion. Lungs: Limited views of the lungs are unremarkable. Mediastinal space: Limited views of the mediastinal space is unremarkable. IMPRESSION: Elevated calcium score within the aortic valve consistent with severe aortic stenosis. Mild to moderate calcification within mitral valve. Aortic valve measurements as estimated above. Evaluation of the coronary vessels was limited. PROCEDURE INFORMATION: Exam: CTA Chest Without And With ContrastCTA Abdomen and Pelvis Without And With Contrast Exam date and time: 08/24/2021 10:42 AM Age: 76 years old Clinical indication: Other: Aortic stenosis TECHNIQUE: Imaging protocol: Computed tomographic angiography of the chest without and with contrast. Computed tomographic angiography of the abdomen and pelvis without and with contrast. 3D rendering (Not supervised by radiologist): MIP and/or 3D reconstructed images were created by the technologist. Radiation optimization: All CT scans at this facility use at least one of these dose optimization techniques: automated exposure control; mA and/or kV adjustment per patient size (includes targeted exams where dose is matched to clinical indication); or iterative reconstruction. Contrast material: ISOVUE 370; Contrast volume: 100 ml; Contrast route: INTRAVENOUS (IV); COMPARISON: No relevant prior studies available. FINDINGS: The ascending aorta is free of significant atherosclerotic calcification. Transverse aortic arch demonstrates a 3 vessel arch configuration with minimal atherosclerotic calcification. The descending thoracic aorta is free of significant atherosclerotic disease. Within the abdominal aorta the celiac trunk and superior mesentericarteries are patent. There are single renal arteries bilaterally which are patent. The inferior mesenteric artery is patent. 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 The distal aorta measures 16 mm. The right common iliac artery is patent with minimal atherosclerotic disease. The right hypogastric artery is patent. The right external iliac artery is patent. There is minimal posterior plaque to the right common femoral artery. There is a preserved bifurcation to the right common femoral artery. The left common iliac artery demonstrates minimal atherosclerotic calcification and is patent. The left hypogastric artery is patent. There is minimal tortuosity to a patent left external iliac artery. The femoral artery is patent with a preserved bifurcation. His CHEST: Lungs: Unremarkable. No consolidation. No masses. Pleural spaces: Unremarkable. No pneumothorax. No pleural effusion. Heart: Unremarkable. No cardiomegaly. No pericardial effusion. Mild mitral valvular calcification. Aortic valvular calcification. ABDOMEN AND PELVIS: Liver: No mass. Gallbladder and bile ducts: Unremarkable. No calcified stones. No ductal dilation. Pancreas: Unremarkable. No mass. No ductal dilation. Spleen: Unremarkable. No splenomegaly. Note is made of a small posterior splenule. Adrenal glands: Unremarkable. No mass. Kidneys and ureters: Unremarkable. No solid mass. No hydronephrosis. Stomach and bowel: Unremarkable. No obstruction. No mucosal thickening. Appendix: No evidence of a ppendicitis. Intraperitoneal space: Unremarkable. No free air. No significant fluid collection. Urinary bladder: Unremarkable. No mass. Reproductive: Unremarkable as visualized. Lymph nodes: Unremarkable. No enlarged lymph nodes. Bones/joints: Mild osteopenia with degenerative changes of the bony pelvis and lumbar spine. IMPRESSION: Unremarkable CTA chest, abdomen, and pelvis. Minimal atherosclerotic calcification to the distal aorta and common iliac arteries. Common femoral and iliac arteries are patent and well preserved. PAGE 3 Signed Report (CONTINUED) Name: BILLY NEWSOME [facility] [place] : 1945 Age/S: 76 / M [address] [place], [place] [address] Unit #: [id number] Loc: JONAH Fung [address] Phys:Neetu Shah Acct: [id number] Dis Date: Status: REG CLI PHONE #: [phone] Exam Date: 08/24/2021 1110 FAX #: [phone] Reason: AORTIC STENOSIS EXAMS: CPT CODE: [id number] CTA ABD PEL W CONT 21153 (Continued) at 2330 Reported and signed by: Trevor Villarreal M.D CC: Neetu Shah; Yannjhonatan Diaz DO; Nawaf Dotson MD Technologist:Russell Jimenez, RT(R)(CT) CTDI: DLP: Trnscb Date/Time: 08/24/2021 (2329) [email or web address] Orig Print D/T: S: 08/24/2021 (2329) PAGE 4 Signed Report- CTA HEART W CN ART/[id number] 00:00:00 [facility] 1945 Sex: MName: BILLY NEWSOME [facility] Rosalinda Sumner : 1945 Age/S: 76 / M [address] Unit#: [id number] Loc: JONAH Fung [address] Phys: Neetu Shah Acct: [id number] Dis Date: Status: REG CLI PHONE #: [phone] Exam Date: 08/24/2021 1110 FAX #: [phone] Reason: EXAMS: CPT CODE:[id number] CTA HEART W CN ART/GRAFTS 51342 PROCEDURE INFORMATION: Exam: CTA Heart and Coronary Arteries Without and With Contrast Exam date and time: 08/24/2021 10:42 AM Age: 76 years old Clinical indication: Other: Aortic stenosis TECHNIQUE: Imaging protocol: Computed tomographic angiography of the heart, coronary arteries and bypass grafts (when present) without and with contrast including 3D image p ostprocessing (including evaluation of cardiac structure and morphology, assessment of cardiac function, and evaluation of venous structures, if performed). 3D rendering (Not supervised by radiologist): MIP and/or 3D reconstructed images were created by the technologist. Radiation optimization: All CTscans at this facility use at least one of these dose optimization techniques: automated exposure control; mA and/or kV adjustment per patient size (includes targeted exams where dose is matched to clinical indication); or iterative reconstruction. Contrast material: ISOVUE 370; Contrast volume: 100 ml ; Contrast route: INTRAVENOUS (IV); Other technique: 3D renderinD reconstructed images were created, reviewed and saved. COMPARISON: No relevant prior studies available. FINDINGS: CALCIUM SCORE: The Calcium score within the aortic valve demonstrates elevated Agatson score of 2074. This is consistent with the patient's history of severe aortic stenosis. Using a 3D workstation the aortic valve wasstudied in multiple cardiac phases. At the level of the sinus of Valsalva the average diameter measured 32.4 mm in diameter. The perimeter measured 106 mm. There is no significant calcification appreciated at the sino- tubular ridge. The aortic valve annulus was estimated at 26.5 mm with an area of 560mm2 and a perimeter of 89 mm. Left main height measured approximately 19 mm. Right coronary height measured 15 mm. CARDIAC: Evaluation of the coronary tree was slightly limited. Right coronary artery origin appeared patent. There is mild atherosclerotic plaque appreciated within the proximal and distal right coronary artery. The left main appeared patent with a bifurcation into the LAD and left circumflex. Evaluation of the mid and distal LAD was limited. There is calcified plaque within 1st diagonal vessel. 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 Left atrium appeared normal in AP dimension. The left atrial appendage appears to fill normally with contrast. There is nopericardial effusion. Lungs: Limited views of the lungs are unremarkable. Mediastinal space: Limitedviews of the mediastinal space is unremarkable. IMPRESSION: Elevated calcium score within the aorticvalve consistent with severe aortic stenosis. Mild to moderate calcification within mitral valve. Aortic valve measurements as estimated above. Evaluation of the coronary vessels was limited. PROCEDURE INFORMATION: Exam: CTA Chest Without And With Contrast CTA Abdomen and Pelvis Without And With Contrast Exam date and time: 08/24/2021 10:42 AM Age: 76 years old Clinical indication: Other: Aortic stenosis TECHNIQUE: Imaging protocol: Computed tomographic angiography of the chest without and with contrast. Computed tomographic angiography of the abdomen and pelvis without and with contrast. 3D rendering (Not supervised by radiologist): MIP and/or 3D reconstructed images were created by the technologist. Radiation optimization: All CT scans at this facility use at least oneof these dose optimization techniques: automated exposure control; mA and/or kV adjustment per patient size (includes targeted exams where dose is matched to clinical indication); or iterative reconstru ction. Contrast material: ISOVUE 370; Contrast volume: 100 ml; Contrast route: INTRAVENOUS (IV); COMPARISON: No relevant prior studies available. FINDINGS: The ascending aorta is free of significant atherosclerotic calcification. Transverse aortic arch demonstrates a 3 vessel arch configuration with minimal atherosclerotic calcification. The descending thoracic aorta is free of significant atherosclerotic disease. Within the abdominal aorta the celiac trunk and superior mesenteric arteries are patent. There are single renal arteries bilaterally which are patent. The inferior mesenteric artery is patent. 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 The distal aorta measures 16 mm.The right common iliac artery is patent with minimal atherosclerotic disease. The right hypogastric artery is patent. The right external iliac artery is patent. There is minimal posterior plaque to theright common femoral artery. There is a preserved bifurcation to the right common femoral artery. The left common iliac artery demonstrates minimal atherosclerotic calcification and is patent. The lefthypogastric artery is patent. There is minimal tortuosity to a patent left external iliac artery. The femoral artery is patent with a preserved bifurcation. His CHEST: Lungs: Unremarkable. No consolidation. No masses. Pleural spaces: Unremarkable. No pneumothorax. No pleural effusion. Heart: Unremarkable. No cardiomegaly. No pericardial effusion. Mild mitral valvular calcification. Aortic valvular ca lcification. ABDOMEN AND PELVIS: Liver: No mass. Gallbladder and bile ducts: Unremarkable. No calcified stones. No ductal dilation. Pancreas: Unremarkable. No mass. No ductal dilation. Spleen: Unremarkable. No splenomegaly. Note is made of a small posterior splenule. Adrenal glands: Unremarkable. No mass. Kidneys and ureters: Unremarkable. No solid mass. No hydronephrosis. Stomach and bowel: Unremarkable. No obstruction. No mucosal thickening. Appendix: No evidence of appendicitis. Intraperitoneal space: Unremarkable. No free air. No significant fluid collection. Urinary bladder: Unremarkable. No mass. Reproductive: Unremarkable as visualized. Lymph nodes: Unremarkable. No enlarged lymph nodes. Bones/joints: Mild osteopenia with degenerative changes of the bony pelvis and lumbar spine. IMPRESSION: Unremarkable CTA chest, abdomen, and pelvis. Minimal atherosclerotic calcification to the distal aorta and common iliac arteries. Common femoral and iliac arteries are patent and well preserved. PAGE3 Signed Report (CONTINUED) Name: BILLY NEWSOME [facility] : 1945 Age/S: 76 / M [address] [place], [place] [address]vd Unit #: [id number] Loc: JONAH Fung [address] Phys: Neetu Shah Acct: [id number] Dis Date: Status: REG CLI PHONE #: [phone] Exam Date: 08/24/2021 1110 FAX #: [phone] Reason: EXAMS: CPT CODE: [id number] CTA HEART W CN ART/GRAFTS 27025 (Continued) at 2330 Reported and signed by: Trevor Villarreal M.D CC: Neetu Shah; Yannjhonatan Dotson MD Technologist:RT Hodan(R)(CT) CTDI: DLP: Trnscb Date/Time: 08/24/2021 (2329) [id number] Orig Print D/T: S: 08/24/2021 (2329) PAG E 4 Signed Report
--- NOTE | 2022-01-10 12:04 | RAD REPORT ---
EXAM DESCRIPTION: Mark Single View01/10/2022 11:51 am CLINICAL HISTORY: Fever COMPARISON: July 2021 FINDINGS: 6 centimeter right upper lobe consolidation. Left lung appears clear. Heart is normal size IMPRESSION: Right upper lobe consolidation consistent with pneumonia. This should be followed until it has cleared to help exclude a post obstructive process/underlying mass
[2022-01-10 12:47] LABS: SARS-COV-2 RT PCR NEGATIVE (NEGATIVE)
[2022-01-10 12:51] LABS: Absolute Lymphocytes (CBC) 0.7 K/uL (0.7-4.9); Hematocrit 31.3 % (39.6-49.0); Lymphocytes % 9.9 % (15.3-44.8); MCV 91.2 fL (80-100); MPV 9.2 fL (7.6-11.3); RBC Red Blood Cell Count 3.43 M/uL (4.33-5.43)
[2022-01-10 13:06] LABS: Potassium 4.5 mmol/L (3.5-5.1)
[2022-01-10] MEDS ORDERED: AZITHROMYCIN 500 MG INJ IVPB ONE (13:32)
[2022-01-10] MEDS ORDERED: CEFTRIAXONE 1000 MG/VIAL ONE (13:32)
[2022-01-10] MEDS ORDERED: NA CHLORIDE 0.9% 250 ML ONE (13:32)
[2022-01-10 13:33] LABS: Blood Morphology Comment NOT SEEN (NOT SEEN); Platelet Estimate DECR; White Blood Cell Scan OK (OK)
--- NOTE | 2022-01-10 13:41 | ER ---
Nurse's Notes [facility] Name: Dwight Flaherty Age: 76 yrs Sex: Male : 1945 Arrival Date: 01/10/2022 Time: 11:18 Bed 15 Private MD: Diagnosis: Pneumonia, unspecified organism;Cellulitis of left lower limb;Dyspnea, unspecified Presentation: 01/10 11:28 Chief complaint: Chief complaint: Patient states: Headache, fever, fatigue, chills ld1 since yesterday. Pt reports fever prior to arrival - took dayquil. Wound to left lower leg. 11:28 Method Of Arrival: Ambulatory ld1 11:34 Coronavirus screen: At this time, the client does not indicate any symptoms associated ld1 with coronavirus-19. Ebola Screen: No symptoms or risks identified at this time. Initial Sepsis Screen: Does the patient meet any 2 criteria? No. Patient's initial sepsis screen is negative. Does the patient have a suspected source of infection? No. Patient's initial sepsis screen is negative. Risk Assessment: Do you want to hurt yourself or someone else? Patient reports no desire to harm self or others. Onset of symptoms was January 10, 2022 at 11:35. 11:34 Acuity: GENO 3 ld1 Triage Assessment: :29 General: Appears in no apparent distress. comfortable, Behavior is calm, cooperative, ld1 appropriate for age. Pain: Denies pain. EENT: No signs and/or symptoms were reported regarding the EENT system. Neuro: Level of Consciousness is awake, alert, obeys commands, Oriented to person, place, time, situation. Cardiovascular: Capillary refill < 3 seconds Patient's skin is warm and dry. Respiratory: Airway is patent Respiratory effort is even, labored. GI: Abdomen is round distended. : No signs and/or symptoms were reported regarding the genitourinary system. Derm: No signs and/or symptoms reported regarding the dermatologic system. Musculoskeletal: No signs and/or symptoms reported regarding the musculoskeletal system. Historical: - Allergies: : No Known Allergies; ld1 - Home Meds: : hydralazine 100 mg oral tab 1 tab 3 times per day [Active]; gabapentin 300 mg Oral cap ld1 [Active]; metoprolol tartrate 100 mg Oral tab 1 tab once daily [Active]; glipizide 10 mg Oral tab 1 tab 2 times per day [Active]; furosemide 40 mg Oral tab 1 tab once daily [Active]; allopurinol 300 mg Oral tab 1 tab once daily [Active]; omeprazole 40 mg Oral cpDR 1 cap once daily [Active]; lisinopril 40 mg Oral tab 1 tab once daily [Active]; rosuvastatin 10 mg Oral tab 1 tab once daily [Active]; amlodipine 5 mg tab 1 tab once daily [Active]; Arnuity Ellipta 100 mcg/actuation inhalation dsdv 1 puff once daily [Active]; baclofen 10 mg Oral tab 1 tab 3 times per day [Active]; Otezla 30 mg Oral tab 1 tab 2 times per day [Active]; Levemir FlexTouch 100 unit/mL (3 mL) subcutaneous inpn 130 unit daily [Active]; Victoza 2-Malvin 0.6 mg/0.1 mL (18 mg/3 mL) subcutaneous pnij 1.8 units once daily [Active]; - PMHx: 11:29 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 - Social history:: Smoking status: Patient denies any tobacco usage or history of. Patient/guardian denies using alcohol. - Family history:: not pertinent. - Hospitalizations: : No recent hospitalization is reported. Screenin:00 Abuse screen: Denies threats or abuse. Denies injuries from another. Nutritional ko1 screening: No deficits noted. Tuberculosis screening: No symptoms or risk factors identified. Fall Risk None identified. Assessment: 13:00 General: Appears in no apparent distress. comfortable, Behavior is calm, cooperative, ko1 appropriate for age. Pain: Denies pain. Neuro: No deficits noted. Cardiovascular: No deficits noted. Respiratory: Breath sounds are coarse in right upper lobe and right middle lobe. GI: No deficits noted. : No deficits noted. EENT: No deficits noted. Derm: Wound noted left becker. Musculoskeletal: No deficits noted. Vital Signs: 11:34 BP 131 / 98; Pulse 57; Resp 26; Temp 98.5(O); Pulse Ox 98% on R/A; ld1 11:34 BP 131 / 98; Pulse 57; Resp 26; Temp 98.5(O); Pulse Ox 98% on R/A; Weight 165.56 kg; ld1 Height 6 ft. 8 in. (203.20 cm); Pain 0/10; 11:34 Body Mass Index 40.10 (165.56 kg, 203.20 cm) ld1 ED Course: 11:18 Patient arrived in ED. rg4 11:21 Germain Padron MD is Attending Physician. rn 11:34 Arm band placed on right wrist. ld1 11:36 Triage completed. ld1 11:41 COVID-19/FLU A+B/RSV (Document "Date of Onset" if Symptomatic) Sent. vg1 11:41 Strep Sent. vg1 11:46 Janice Ellis, PUMA is Primary Nurse. ko1 11:53 XRAY Chest (1 view) In Process Unspecified. EDMS 13:00 Patient has correct armband on for positive identification. Placed in gown. Bed in low ko1 position. Call light in reach. Side rails up X 1. Client placed on continuous cardiac and pulse oximetry monitoring. NIBP monitoring applied. lunchroom monitor on. 13:00 No provider procedures requiring assistance completed. Inserted saline lock: 22 gauge ko1 in right forearm, using aseptic technique. Blood collected. Patient maintains SpO2 saturation greater than 95% on room air. 13:17 Blood Culture Adult (2) Sent. ko1 13:39 Riki Padron MD is Hospitalizing Provider. rn 16:44 Patient admitted, IV remains in place. ko1 Administered Medications: 13:41 Drug: Rocephin (cefTRIAXone) 1 grams Route: IV; Rate: calculated rate; Site: right ko1 antecubital; 13:41 Drug: Zithromax (azithromycin) 500 mg Route: IVPB; Infused Over: 1 hrs; Site: right ko1 antecubital; 13:58 Drug: NS 0.9% 500 ml Route: IV; Rate: bolus; Site: right antecubital; ko1 Medication: 13:00 VIS not applicable for this client. ko1 Intake: 14:25 IV: 250ml (IV Fluid); Total: 250ml. ko1 14:25 IV: 500ml (IV Fluid); Total: 750ml. ko1 Outcome: 13:40 Decision to Hospitalize by Provider. rn 16:44 Admitted to Med/surg accompanied by nurse, family with patient, via stretcher, room ko1 409, with chart, Report called to Jeanie RN 16:44 Condition: stable ko1 16:44 Instructed on the need for admit. 20:01 Patient left the ED. ld1 Signatures: Dispatcher [employer] EDMS Germain Padron MD MD rn Garcia, Rubi rg4 Desiree Canales RN RN 1 Mary Cobb RN RN ld1 Janice Ellis RN RN ko1 Corrections: (The following items were deleted from the chart) 11:33 11:29 PSHx: None; ld1 ld1 11:34 11:29 Respiratory: Airway is patent Respiratory effort is even, unlabored, ld1 ld1 11:36 11:28 Chief complaint: ld1 ld1
--- NOTE | 2022-01-10 13:41 | EDPHYS ---
Physician Documentation [facility] Name: Dwight Flaherty Age: 76 yrs Sex: Male : 1945 Arrival Date: 01/10/2022 Time: 11:18 Bed 15 Private MD: ED Physician Germain Padron HPI: 01/10 11:36 This 76 yrs old Male presents to ER via Ambulatory with complaints of Flu Symptoms. rn 11:36 The patient reports fever, not measured (subjective). Onset: The symptoms/episode rn began/occurred 2 day(s) ago. Modifying factors: there are no obvious modifying factors. Associated signs and symptoms: Pertinent positives: chills, cough, runny nose, shortness of breath, Pertinent negatives: abdominal pain, altered mental status, chest pain, diarrhea, swelling, vomiting. Severity of symptoms: At their worst the symptoms were mild in the emergency department the symptoms are unchanged. The patient has not experienced similar symptoms in the past. The patient has not recently seen a physician. Historical: - Allergies: 11:29 No Known Allergies; ld1 - Home Meds: 11:29 hydralazine 100 mg oral tab 1 tab 3 times per day [Active]; gabapentin 300 mg Oral cap ld1 [Active]; metoprolol tartrate 100 mg Oral tab 1 tab once daily [Active]; glipizide 10 mg Oral tab 1 tab 2 times per day [Active]; furosemide 40 mg Oral tab 1 tab once daily [Active]; allopurinol 300 mg Oral tab 1 tab once daily [Active]; omeprazole 40 mg Oral cpDR 1 cap once daily [Active]; lisinopril 40 mg Oral tab 1 tab once daily [Active]; rosuvastatin 10 mg Oral tab 1 tab once daily [Active]; amlodipine 5 mg tab 1 tab once daily [Active]; Arnuity Ellipta 100 mcg/actuation inhalation dsdv 1 puff once daily [Active]; baclofen 10 mg Oral tab 1 tab 3 times per day [Active]; Otezla 30 mg Oral tab 1 tab 2 times per day [Active]; Levemir FlexTouch 100 unit/mL (3 mL) subcutaneous inpn 130 unit daily [Active]; Victoza 2-Malvin 0.6 mg/0.1 mL (18 mg/3 mL) subcutaneous pnij 1.8 units once daily [Active]; - PMHx: 11:29 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 - Social history:: Smoking status: Patient denies any tobacco usage or history of. Patient/guardian denies using alcohol. - Family history:: not pertinent. - Hospitalizations: : No recent hospitalization is reported. ROS: 11:36 Constitutional: + fever and chills Eyes: Negative for injury, pain, redness, and cook morning, ENT: + nasal congestion Neck: Negative for injury, pain, and swelling, Cardiovascular: Negative for chest pain, palpitations, and edema, Respiratory: + cough and sob Abdomen/GI: Negative for abdominal pain, nausea, vomiting, diarrhea, and constipation, Back: Negative for injury and pain, : Negative for injury, bleeding, discharge, and swelling, MS/Extremity: Negative for injury and deformity, Skin: + redness to LLE with minimal drainage to chronic wounds Neuro: Negative for numbness, tingling, and seizure. Exam: 11:36 Constitutional: This is a well developed, well nourished patient who is awake, alert, rn mild tachypnea Head/Face: Normocephalic, atraumatic. Eyes: Pupils equal round and reactive to light, extra-ocular motions intact. Periorbital areas with no swelling, redness, or edema. ENT: Dry MM, no stridor Cardiovascular: Bradycardic, regular. No pulse deficits. Respiratory: + mild to moderate tachypnea, no retractions Abdomen/GI: Soft, non-tender Skin: Warm, + mile erythema and mild drainage to LLE with chronic wounds, no abscess MS/ Extremity: No cyanosis. Neuro: Awake and alert, GCS 15 Vital Signs: 11:34 BP 131 / 98; Pulse 57; Resp 26; Temp 98.5(O); Pulse Ox 98% on R/A; ld1 11:34 BP 131 / 98; Pulse 57; Resp 26; Temp 98.5(O); Pulse Ox 98% on R/A; Weight 165.56 kg; ld1 Height 6 ft. 8 in. (203.20 cm); Pain 0/10; 11:34 Body Mass Index 40.10 (165.56 kg, 203.20 cm) ld1 MDM: 11:21 Patient medically screened. rn 13:39 Differential diagnosis: viral Infection, bacterial infection, URI, bronchitis, rn pneumonia. Data reviewed: vital signs, nurses notes, lab test result(s), radiologic studies, plain films, and as a result, I will admit patient. Counseling: I had a detailed discussion with the patient and/or guardian regarding: the historical points, exam findings, and any diagnostic results supporting the discharge/admit diagnosis, lab results, radiology results, the need for further work-up and treatment in the hospital. Admission orders: after a detailed discussion of the patient's condition and case, the admit orders are written by me. 01/10 11:34 Order name: COVID-19/FLU A+B/RSV (Document "Date of Onset" if Symptomatic); Complete rn Time: 13:26 01/10 11:34 Order name: Strep; Complete Time: 12:42 01/10 11:34 Order name: CBC with Diff; Complete Time: 13:34 01/10 11:34 Order name: Basic Metabolic Panel; Complete Time: 13:26 01/10 11:34 Order name: Procalcitonin; Complete Time: 13:34 01/10 11:34 Order name: BNP; Complete Time: 13:26 01/10 11:35 Order name: Blood Culture Adult (2) 01/10 11:35 Order name: Lactate; Complete Time: 13:26 01/10 12:16 Order name: Throat Culture [facility] [place] 01/10 12:58 Order name: CBC Smear Scan; Complete Time: 13:34 [facility] [place] 01/10 14:16 Order name: NT PRO-BNP [facility] [place] 01/10 14:16 Order name: Urinalysis [facility] [place] 01/10 14:16 Order name: Basic Metabolic Panel [facility] [place] 01/10 14:16 Order name: Basic Metabolic Panel [facility] [place] 01/10 11:34 Order name: XRAY Chest (1 view); Complete Time: 12:13 01/10 11:34 Order name: IV Start; Complete Time: 13:00 rn 01/10 11:34 Order name: Cardiac monitoring; Complete Time: 12:08 rn 01/10 11:34 Order name: O2 Sat Monitoring; Complete Time: 12:08 rn 01/10 14:16 Order name: 60g Consistent Carbohydrate (ADA ) EDMS 01/10 14:16 Order name: CBC with Automated Diff EDMS 01/10 14:16 Order name: CBC with Automated Diff EDMS Administered Medications: 13:41 Drug: Rocephin (cefTRIAXone) 1 grams Route: IV; Rate: calculated rate; Site: right ko1 antecubital; 13:41 Drug: Zithromax (azithromycin) 500 mg Route: IVPB; Infused Over: 1 hrs; Site: right ko1 antecubital; 13:58 Drug: NS 0.9% 500 ml Route: IV; Rate: bolus; Site: right antecubital; ko1 Disposition Summary: 01/10/22 13:40 Hospitalization Ordered Hospitalization Status: Observation rn Provider: Riki Padron rn Location: Telemetry/MedSurg (observation) rn Condition: Stable rn Problem: new rn Symptoms: have improved rn Bed/Room Type: Standard rn Room Assignment: 409(01/10/22 16:13) bd Diagnosis - Pneumonia, unspecified organism rn - Cellulitis of left lower limb rn - Dyspnea, unspecified rn Forms: - Medication Reconciliation Form rn - SBAR form rn Signatures: Dispatcher [employer] EDMS Amaya Chu bd Germain Padron MD MD rn Dibbern, Lauren, RN RN ld1 Janice Ellis, RN RN ko1 Corrections: (The following items were deleted from the chart) 11:33 11:29 PSHx: None; ld1 ld1 16:13 13:40 rn bd
[2022-01-10] MEDS ORDERED: NA CHLORIDE 0.9% 500 ML ONE (13:58)
[2022-01-10] MEDS ORDERED: HYDROCODONE/APAP 5/325 MG TAB PO PRN (14:08)
[2022-01-10] MEDS ORDERED: ONDANSETRON 4 MG/2 ML VIAL IV PRN (14:13)
[2022-01-10] MEDS ORDERED: HYDRALAZINE HCL 100 MG PO SCH (14:16)
[2022-01-10] MEDS ORDERED: HYDRALAZINE HCL 20 MG/ML VIAL IV PRN (14:18)
--- NOTE | 2022-01-10 14:39 | P.HP ---
Certification for Inpatient Patient admitted to: Inpatient With expected LOS: >2 Midnights Patient will require the following post-hospital care: None Practitioner: I am a practitioner with admitting privileges, knowledge of patient current condition, hospital course, and medical plan of care. Services: Services provided to patient in accordance with Admission requirements found in Title 42 Section 412.3 of the Code of Federal Regulations Patient History Date of Service: 01/10/22 Reason for admission: SOB, flulike symptoms History of Present Illness: Patient is a 76-year-old male with a past medical history significant for obesity, hypertension, DM 2 with neuropathy, lymphedema, osteoarthritis, gout, BALWINDER, HLD, GERD CKD who presents with complaint of fever, shortness of breath, chills and generalized weakness that has been ongoing for the past two days. Patient reported associated signs and symptoms of lightheadedness, poor gait, cough, rhinorrhea, and generalized malaise. Patient reported that he has been having lower extremity swelling\redness for the past 2 weeks and has been having drainage to lower extremity wounds. Patient denies any other signs or symptoms. Symptoms are aggravated or relieved by nothing. Patient reported that he followed up with his PCP who instructed him to go to the ER. Of note, patient reported that he recently had cardiac valve replacement 3 months ago. Allergies No Known Allergies Allergy (Verified 08/13/21 13:49) Home Medications: Allopurinol 300 mg PO DAILY 04/18/19 Amlodipine Besylate 10 mg PO DAILY 04/18/19 Apremilast [Otezla] 30 mg PO BID 04/18/19 Fluticasone Furoate [Arnuity Ellipta] 100 mcg PO DAILY 04/18/19 Furosemide [Lasix*] 40 mg PO DAILY 04/18/19 Gabapentin 300 mg PO DAILY 04/18/19 Glipizide [Glipizide ER] 10 mg PO BID 04/18/19 Hydralazine HCl [Apresoline] 75 mg PO Q8H 04/18/19 Insulin Detemir [Levemir Flextouch] 130 units SQ DAILY 04/18/19 Liraglutide [Victoza 2-Malvin] 1.8 units SQ DAILY 04/18/19 Omeprazole [Prilosec] 40 mg PO DAILY 04/18/19 Rosuvastatin [Crestor*] 10 mg PO DAILY 04/18/19 Gabapentin 600 mg PO BEDTIME 04/19/19 lisinopriL [Prinivil*] 20 mg PO DAILY #30 tab 04/22/19 Aspirin [Ab Chewable Aspirin] 81 mg PO DIRECTED 01/11/22 Baclofen 10 mg PO DAILY 01/11/22 Calcium` 600 mg PO DAILY 01/11/22 Clopidogrel Bisulfate [Plavix] 75 mg PO DAILY 01/11/22 Ferrous Sulfate [Iron] 325 mg PO DAILY 01/11/22 Magnesium Oxide [Magnesium] 250 mg PO DAILY 01/11/22 Benedict-3/Dha/Epa/Fish Oil [Fish Oil 1,000 mg Softgel] 1 each PO DAILY 01/11/22 Plavix 75 mg PO DAILY 01/11/22 Vit D 2,000 units PO DAILY 01/11/22 - Past Medical/Surgical History Diabetic: Yes -: Psoriasis -: Chronic kidney disease, Stage 3, Nephrology-Dr. Holt -: HTN -: Osteoarthritis -: Lymphedema -: DM Neuropathy -: Gout -: Obesity -: Obstructive sleep apnea -: Hyperlipidemia -: GERD -: History of gastric ulcer -: joint replacements - both knees -: gall bladder removed -: both hands surgery + right fingers -: punji stick removal Psychosocial/ Personal History: . He has 2 stepchildren, 1 child, and another adopted. He is retired. - Family History Father -: Heart disease - Social History Smoking Status: Former smoker Alcohol use: No CD- Drugs: No Caffeine use: Yes Place of Residence: Home Review of Systems General: Fever, Chills, Weakness, Malaise Eyes: Unremarkable ENT: Other (Rhinorrhea) Respiratory: Cough, Shortness of Breath Cardiovascular: Light Headedness Gastrointestinal: Unremarkable Genitourinary: Unremarkable Musculoskeletal: Other (Poor gait, LLE swelling) Integumentary: Other (LLE redness) Neurological: Weakness Lymphatics: Unremarkable Physical Examination - Physical Exam General: Alert, Oriented x3, Mild distress HEENT: Atraumatic, Normocephalic, PERRLA Neck: Supple, 2+ carotid pulse no bruit, JVD not distended Respiratory: Diminished, Crackles/rales, Inspiratory wheezes Cardiovascular: Edema Capillary refill: <2 Seconds Gastrointestinal: Normal bowel sounds, Soft and benign Musculoskeletal: Swelling, Erythema Integumentary: Skin breakdown, Tenderness/swelling, Erythema Neurological: Normal speech, Abnormal gait Lymphatics: No axilla or inguinal lymphadenopathy - Studies Laboratory Data (last 24 hrs) 01/10/22 12:40: Sodium 136, Potassium 4.5, BUN 47 H, Creatinine 2.65 H, Glucose 231 H 01/10/22 12:40: WBC 7.60, Hgb 10.6 L, Hct 31.3 L, Plt Count 76 L Microbiology Data (last 24 hrs): 01/10/22 11:40 Throat Group A Streptococcus Rapid Screen - Final Assessment and Plan - Plan --Pneumonia. Noted on imaging. Blood and Throat cultures pending. Patient placed on antibiotics, neb treatment with albuterol\Atrovent and O2 therapy. -- Left lower extremity cellulitis. Blood cultures pending. Continue antibiotics. Wound care consult initiated. --Headache. Tylenol as needed. --TORRES on CKD 3. Nephrology consulted. Will further recommendations. --Morbid obesity. Likely secondary to sedentary lifestyle and excess calories intake. Patient counseled on weight reduction, diet and exercise therapy. --Hypertension. Poorly controlled. Continue home medications and hydralazine as needed. --DM2 with neuropathy. BS monitoring with sliding scale insulin. Continue gabapentin for neuropathy. --Gout. Continue home medication. --Osteoarthritis. We will manage pain on current pain medication regimen. --History of lymphedema. Continue Lasix and supportive care --BALWINDER. Continue supportive care. --Hyperlipidemia. Continue statin. --GERD. Continue Protonix. --Anemia of chronic disease. H&H stable. We will continue to monitor hemoglobin and transfuse if less than 7.0. --DVT prophylaxis with heparin subQ. Discharge Plan: Home Plan to discharge in: Greater than 2 days - Advance Directives Does patient have a Living Will: No Does patient have a Durable POA for Healthcare: No - Code Status/Comfort Care Code Status Assessed: Yes Code Status: Full Code Physician Review: Patient Assessed, Agree with Above Assessment and Plan Critical Care: No
[2022-01-10 16:12] VITALS: BMI 39.9
[2022-01-10] MEDS: INSULIN -REGULAR HUMAN 50 UNIT/0.5 ML ML SQ SCH ×2 (16:30→20:30)
[2022-01-10] MEDS: FUROSEMIDE 20 MG/ 2ML VIAL IV SCH (17:00)
[2022-01-10] MEDS: HYDRALAZINE HCL 25 MG TABLET PO SCH (17:00)
[2022-01-10] MEDS: ASPIRIN EC 81 MG TAB PO SCH (17:47)
[2022-01-10] MEDS ORDERED: ASPIRIN EC 81 MG TAB PO ONE (17:51)
[2022-01-10] MEDS ORDERED: FUROSEMIDE 20 MG/ 2ML VIAL ONE (17:51)
[2022-01-10] MEDS: ACETAMINOPHEN 325 MG TABLET PO PRN (19:04)
[2022-01-10] MEDS: ALBUTEROL 2.5 MG/3 ML NEB SOL NEB SCH (20:00)
[2022-01-10] MEDS: IPRATROPIUM BROM 0.5MG/2.5ML NEB SCH (20:00)
[2022-01-10] MEDS: HEPARIN 5000 UNIT/ML 1 ML VIAL SQ SCH (20:29)
[2022-01-11] MEDS: HYDRALAZINE HCL 25 MG TABLET PO SCH ×3 (01:00→17:00)
[2022-01-11] MEDS: ALBUTEROL 2.5 MG/3 ML NEB SOL NEB SCH ×4 (01:15→20:00)
[2022-01-11] MEDS: IPRATROPIUM BROM 0.5MG/2.5ML NEB SCH ×4 (01:15→20:00)
[2022-01-11] MEDS: ACETAMINOPHEN 325 MG TABLET PO PRN ×2 (01:57→22:04)
[2022-01-11 03:57] LABS: Absolute Lymphocytes (CBC) 0.8 K/uL (0.7-4.9); Hematocrit 29.9 % (39.6-49.0); Lymphocytes % 12.3 % (15.3-44.8); MCV 91.6 fL (80-100); MPV 9.6 fL (7.6-11.3); RBC Red Blood Cell Count 3.27 M/uL (4.33-5.43)
[2022-01-11 04:13] LABS: Potassium 4.3 mmol/L (3.5-5.1)
[2022-01-11 04:30] LABS: Magnesium 1.7 mg/dL (1.8-2.4); Phosphorus 2.9 mg/dL (2.5-4.9)
[2022-01-11] MEDS ORDERED: MAGNESIUM SULFATE 1 gm IVPB 1 GM/100 ML BAG IV ONE (05:00)
--- NOTE | 2022-01-11 07:03 | CON ---
Date of Consultation: 01/10/2022 Chief Complaint: Chronic kidney disease stage 3. History Of Present Illness: The patient has multiple medical problems including chronic kidney disea se stage 3, hypertension, lymphedema, diabetic gout, diabetic nephropathy, history of gastric ulcer, obesity. He presented to the hospital because of severe shortness of breath. He is complaining of t remor and shivering. He had fever prior to this admission. He is admitted to the hospital because o f pneumonia. He is complaining of dyspnea on exertion and dyspnea at rest. He was found to have kell lulitis of the left lower extremity. The patient was complaining of headache, fever, fatigue, chills , and some generalized weakness. He had diminished p.o. intake. He was complaining of the left lowe r extremity wound, which is nonhealing. The patient received a test to screen for COVID pneumonia an d results are pending. The patient had workup done for possible sepsis and initial sepsis screen is negative. The patient remains hemodynamically stable. Review of Systems: General: Complains of generalized weakness. Eyes: Denies vision changes. Ears, Nose, Mouth, and Throat: Denies sore throat or earache. Respiratory: Has shortness of breath. Denies wheezing or hemoptysis. GI: Denies nausea or vomiting today. : Denies dysuria, hematuria, incomplete voiding. All other systems reviewed and all are negative. Past Medical History: Diabetes mellitus, insulin dependent diabetes mellitus, chronic kidney disease , hypertension, psoriasis. Past Surgical History: Heart valve replacement, cholecystectomy, bilateral knee replacements, carpal tunnel syndrome. Social History: The patient denies, denies alcohol. Physical Examination: GENERAL: The patient is awake and alert, follows commands. Eyes: Anicteric sclerae. EOMI. No oozing. Neck: Supple. No JVD. Lungs: Coarse breath sound bilaterally. Heart: S1, S2. No pericardial friction rub. Abdomen: Obese, soft, nontender. No rebound. No guarding. Extremities: Edema present in both legs. Laboratory Data: Sodium 136, potassium 4.5, chloride 105, creatinine 2.65, BUN 47. WBC 7.6, hematoc rit 31.3, hemoglobin 10.6, platelet count 76,000. Impression And Plan: 1.Chronic kidney disease. Avoid nephrotoxic medication. There is prerenal azotemia secondary to re nal hypoperfusion. Recommend to hold ANGELA inhibitor. 2.Hypertension. Adjust blood pressure medication according to blood pressure lock. 3.Diabetes mellitus. Avoid metformin. Continue insulin sliding scale. Monitor blood sugar closely . 4.History of gout, currently the patient is asymptomatic. Monitor uric acid level. 5.Hypertension. Continue beta dorinda. ANGELA inhibitor is on hold due to acute kidney injury and pre renal azotemia. 6.Shortness of breath. The patient may require furosemide. Continue IV furosemide according to vol emia status. EB/MODL Voice ID: [id number] Report ID: [id number]
[2022-01-11] MEDS: INSULIN -REGULAR HUMAN 50 UNIT/0.5 ML ML SQ SCH ×4 (07:30→21:00)
[2022-01-11] MEDS: ROSUVASTATIN 10 MG TAB PO SCH (08:31)
[2022-01-11] MEDS: PANTOPRAZOLE 40MG TABLET PO SCH (08:31)
[2022-01-11] MEDS: GABAPENTIN 300 MG CAP PO SCH (08:31)
[2022-01-11] MEDS: ASPIRIN EC 81 MG TAB PO SCH (08:32)
[2022-01-11] MEDS: HEPARIN 5000 UNIT/ML 1 ML VIAL SQ SCH ×2 (08:32→20:09)
[2022-01-11] MEDS: allopurinoL 300 MG TAB PO SCH (08:32)
[2022-01-11] MEDS: FUROSEMIDE 20 MG/ 2ML VIAL IV SCH ×2 (08:32→18:12)
[2022-01-11] MEDS: CEFTRIAXONE 1,000 MG in NA CHLORIDE 0.9% 50 ML IVPB SCH (08:33)
[2022-01-11] MEDS: AMLODIPINE 5 MG TAB PO SCH (08:37)
[2022-01-11] MEDS: APREMILAST 30 MG PO SCH (08:41)
[2022-01-11] MEDS: HOME MED 1 EA UNK (Fluticasone Furoate [Arnuity Ellipta] 100 MCG Blst.W.Dev) PO SCH (08:41)
[2022-01-11] MEDS ORDERED: HOME MED 1 EA UNK (Omeprazole [Prilosec] 40 MG Capsule.Dr) PO SCH (09:00)
[2022-01-11] MEDS: AZITHROMYCIN IV 500 MG in NA CHLORIDE 0.9% 250 ML IVPB SCH (09:44)
[2022-01-11] MEDS ORDERED: INFLUENZA VACCINE (for 6+ mo) 0.5 ML DOSE IMVAC ONE (16:00)
[2022-01-11] MEDS ORDERED: PNEUMOCOCCAL VACCINE 0.5 ML IMVAC ONE (16:00)
--- NOTE | 2022-01-11 17:07 | P.PN ---
Subjective Date of Service: 01/11/22 Chief Complaint: SOB, flulike symptoms Patient stated he feels better today. He has intermittent fever. He stated his shortness of breath is better. Physical Examination - Vital Signs Temperature: 101.6 F Blood Pressure: 109/62 Pulse: 113 Respirations: 18 Pulse Ox (%): 95 - Studies Laboratory Data (last 24 hrs) 01/11/22 03:17: Sodium 137, Potassium 4.3, BUN 46 H, Creatinine 2.39 H, Glucose 231 H, Phosphorus 2.9, Magnesium 1.7 L 01/11/22 03:17: WBC 6.60, Hgb 10.2 L, Hct 29.9 L, Plt Count 69 L Microbiology Data (last 24 hrs): 01/10/22 11:40 Throat Group A Streptococcus Rapid Screen - Final Assessment And Plan - Current Problems (Diagnosis) (1) Right upper lobe pneumonia Current Visit: Yes Status: Acute (2) Sepsis Current Visit: Yes Status: Acute (3) Chronic kidney disease, stage 3 Current Visit: No Status: Chronic (4) HTN (hypertension) Onset Date: 01/04/16 Current Visit: No Status: Chronic Qualifiers: Hypertension type: essential hypertension Qualified Code(s): I10 - Essential (primary) hypertension (5) Obstructive sleep apnea Current Visit: No Status: Chronic (6) Type II diabetes mellitus Onset Date: 01/04/16 Current Visit: No Status: Chronic Qualifiers: Diabetes mellitus fpc insulin use: with fpc use Diabetes mellitus complication status: without complication Qualified Code(s): E11.9 - Type 2 diabetes mellitus without complications; 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 Neck: Supple, JVD not distended Respiratory: Diminished, mild bibasilar crackles/rales, mild inspiratory wheezes Cardiovascular: bilateral lower extremity edema Gastrointestinal: Normal bowel sounds, Soft and benign Integumentary: Skin breakdown, bilateral lower extremity venous stasis dermatitis, Erythema Neurological: No focal motor deficit. Plan: Continue IV Rocephin and Zithromax for community-acquired pneumonia. We will change antibiotics to IV Rocephin and Levaquin if no significant response with the current regimen. Follow blood cultures. Bronchodilators Manage blood sugar with insulin sliding scale. Keep lower extremities elevated. Hold home antihypertensives due to risk of hypotension. Seen by nephrology for chronic kidney disease. Monitor renal function. Physician Review: Patient Assessed, Agree with Above Assessment and Plan
--- NOTE | 2022-01-11 22:45 | PN ---
Date of Progress Note: 01/11/2022 Chief Complaint: Chronic kidney disease stage 3, acute kidney injury. Subjective: Patient has multiple medical problems including chronic kidney disease stage 3, hyperten matias, lymphedema, diabetic kidney disease, gout, history of gastric ulcer, obesity. He presented to the hospital because of severe shortness of breath. He was complaining of tremor and shivering. He had fever prior to this admission, and he is admitted to the hospital because of pneumonia, respirato ry failure with hypoxemic respiratory failure. He was found to have cellulitis of the left lower ext remity and started on antibiotic and wound care started as well. The patient had a screen test for C OVID pneumonia and results are pending. Review of Systems: Denies fever or chills. Physical Examination: Lungs: Few rhonchi. Heart: S1, S2. Abdomen: Soft. Extremities: Dressing in lower extremity. Edema present in both legs. Impression And Plan: 1.Chronic kidney disease, acute kidney injury, cardiorenal syndrome. Patient developed prerenal azo temia. Continue to monitor blood pressure. Adjust medication for blood pressure control. 2.Diabetes mellitus. Avoid metformin. Continue insulin sliding scale. 3.History of gout. Patient is asymptomatic. Monitor uric acid level and adjust allopurinol to beka l function. 4.Shortness of breath. Patient may require furosemide. Continue IV Lasix according to volemia stat us. EB/MODL Voice ID: [id number] Report ID: [id number]
[2022-01-12] MEDS: IPRATROPIUM BROM 0.5MG/2.5ML NEB SCH ×4 (00:45→20:00)
[2022-01-12] MEDS: ALBUTEROL 2.5 MG/3 ML NEB SOL NEB SCH ×4 (00:45→20:00)
[2022-01-12] MEDS: HYDRALAZINE HCL 25 MG TABLET PO SCH ×3 (01:00→17:01)
[2022-01-12 08:09] LABS: Potassium 4.6 mmol/L (3.5-5.1)
[2022-01-12] MEDS: APREMILAST 30 MG PO SCH (09:00)
[2022-01-12] MEDS: HOME MED 1 EA UNK (Fluticasone Furoate [Arnuity Ellipta] 100 MCG Blst.W.Dev) PO SCH (09:00)
[2022-01-12] MEDS: FUROSEMIDE 20 MG/ 2ML VIAL IV SCH (09:13)
[2022-01-12] MEDS: INSULIN -REGULAR HUMAN 50 UNIT/0.5 ML ML SQ SCH ×4 (09:13→21:02)
[2022-01-12] MEDS: AMLODIPINE 5 MG TAB PO SCH (09:13)
[2022-01-12] MEDS: HEPARIN 5000 UNIT/ML 1 ML VIAL SQ SCH ×2 (09:13→21:02)
[2022-01-12] MEDS: GABAPENTIN 300 MG CAP PO SCH (09:13)
[2022-01-12] MEDS: PANTOPRAZOLE 40MG TABLET PO SCH (09:14)
[2022-01-12] MEDS: allopurinoL 300 MG TAB PO SCH (09:14)
[2022-01-12] MEDS: ASPIRIN EC 81 MG TAB PO SCH (09:14)
[2022-01-12] MEDS: CEFTRIAXONE 1,000 MG in NA CHLORIDE 0.9% 50 ML IVPB SCH (09:14)
[2022-01-12] MEDS: ROSUVASTATIN 10 MG TAB PO SCH (09:26)
[2022-01-12] MEDS: MAGNESIUM OXIDE 400 MG TAB PO SCH (09:27)
[2022-01-12] MEDS: AZITHROMYCIN IV 500 MG in NA CHLORIDE 0.9% 250 ML IVPB SCH (09:52)
[2022-01-12] MEDS ORDERED: Levofloxacin 750mg IV 750 MG/150 ML BAG IV SCH (11:00)
--- NOTE | 2022-01-12 14:37 | P.PN ---
Subjective Date of Service: 01/12/22 Chief Complaint: SOB, flulike symptoms Patient states he is doing better today. No fever today. He reported progressive improvement in his shortness of breath. Physical Examination - Vital Signs Temperature: 98.6 F Blood Pressure: 160/95 Pulse: 94 Respirations: 14 Pulse Ox (%): 95 - Studies Microbiology Data (last 24 hrs): 01/10/22 11:40 Throat Culture & Sensitivity - Final NORMAL UPPER RESPIRATORY STEVE GROWN. Assessment And Plan - Current Problems (Diagnosis) (1) Right upper lobe pneumonia Current Visit: Yes Status: Acute (2) Sepsis Current Visit: Yes Status: Acute (3) Chronic kidney disease, stage 3 Current Visit: No Status: Chronic (4) HTN (hypertension) Onset Date: 01/04/16 Current Visit: No Status: Chronic Qualifiers: Hypertension type: essential hypertension Qualified Code(s): I10 - Essential (primary) hypertension (5) Obstructive sleep apnea Current Visit: No Status: Chronic (6) Type II diabetes mellitus Onset Date: 01/04/16 Current Visit: No Status: Chronic Qualifiers: Diabetes mellitus chcf insulin use: with chcf use Diabetes mellitus complication status: without complication Qualified Code(s): E11.9 - Type 2 diabetes mellitus without complications; 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 Neck: Supple, JVD not distended Respiratory: Diminished, mild bibasilar crackles/rales. Cardiovascular: bilateral lower extremity edema Gastrointestinal: Normal bowel sounds, Soft and benign Integumentary: Skin breakdown, bilateral lower extremity venous stasis dermatitis. Neurological: No focal motor deficit. Plan: Continue IV Rocephin. Switched IV Zithromax to IV Levaquin due to intermittent fever Blood cultures: No growth to date. Throat swab: Rapid strep negative, normal steve on culture. Manage blood sugar with insulin sliding scale. Keep lower extremities elevated. Resume antihypertensive CKD is stable. Creatinine is trending down. Monitor renal function. CPAP at night. Increase activity as tolerated.
--- NOTE | 2022-01-12 14:59 | PN ---
Date of Progress Note: 01/12/2022 Subjective: The patient was admitted with pneumonia, acute kidney injury secondary to prerenal. The patient feeling better. Physical Examination: Vital Signs: Blood pressure 150/68, pulse of 96, afebrile. Chest: Crackles on the right base. Heart: S1, S2. Systolic murmur. Abdomen: Soft, nontender. Extremity: Venous stasis change bilateral, dressing on the left leg. Laboratory Data: Chest x-ray; infiltration on the right side. Hemoglobin 10.2. Sodium 136, potassi um 4.6, bicarb 26, BUN 42, creatinine 2.1, GFR of 32, calcium 8.8. Current Medications: The patient on include; 1.Ceftriaxone. 2.Levofloxacin 750 daily. 3.Hydralazine. 4.Amlodipine. 5.Atorvastatin. 6.Lasix 20 b.i.d. 7.Breathing treatment. Assessment And Plan: 1.Chronic kidney disease with acute kidney injury secondary to prerenal/toxic ATN, recovered, close to baseline, looked to me the patient is still on the dry side. I will decrease Lasix to once a day. 2.Hypertension, controlled, optimal. Continue current medication. 3.Edema secondary to venous stasis change. No respiratory distress currently. I will decrease the Lasix. 4.Pneumonia. Dose appropriate. Continue current antibiotic. FAUZIA Voice ID: [id number] Report ID: [id number]
[2022-01-12] MEDS: BENZONATATE 100 MG CAP PO PRN (22:16)
[2022-01-13] MEDS: HYDRALAZINE HCL 25 MG TABLET PO SCH ×2 (00:48→10:13)
[2022-01-13] MEDS: ALBUTEROL 2.5 MG/3 ML NEB SOL NEB SCH ×2 (02:35→08:00)
[2022-01-13] MEDS: IPRATROPIUM BROM 0.5MG/2.5ML NEB SCH ×2 (02:35→08:00)
[2022-01-13 04:07] LABS: Hematocrit 28.5 % (39.6-49.0); Lymphocytes % 24.4 % (15.3-44.8); MCV 90.9 fL (80-100); MPV 9.2 fL (7.6-11.3); RBC Red Blood Cell Count 3.13 M/uL (4.33-5.43)
[2022-01-13 04:15] LABS: Potassium 4.3 mmol/L (3.5-5.1)
--- NOTE | 2022-01-13 08:31 | P.DS ---
Admission Date: 01/11/22 Discharge Date: 01/13/22 Disposition: ROUTINE DISCHARGE Discharge Condition: GOOD Reason for Admission: SOB, flulike symptoms - Problems (1) Right upper lobe pneumonia Status: Acute (2) Sepsis Status: Acute (3) Chronic kidney disease, stage 3 Status: Chronic (4) HTN (hypertension) Onset Date: 01/04/16 Status: Chronic Qualifiers: Hypertension type: essential hypertension (5) Obstructive sleep apnea Status: Chronic (6) Type II diabetes mellitus Onset Date: 01/04/16 Status: Chronic Qualifiers: Diabetes mellitus fci insulin use: with fci use Diabetes mellitus complication status: without complication Qualified Code(s): E11.9 - Type 2 diabetes mellitus without complications; Z79.4 - long term (current) use of insulin Brief History of Present Illness: Patient is a 76-year-old male with a past medical history significant for obesity, hypertension, DM 2 with neuropathy, lymphedema, osteoarthritis, gout, BALWINDER, HLD, GERD CKD who presents with complaint of fever, shortness of breath, chills and generalized weakness that has been ongoing for two days. Patient reported associated signs and symptoms of lightheadedness, poor gait, cough, rhinorrhea, and generalized malaise. Patient reported that he has been having lower extremity swelling\redness for 2 weeks and has been having drainage to lower extremity wounds. Patient reported that he followed up with his PCP who instructed him to go to the ER. Of note, patient reported that he recently had cardiac valve replacement 3 months ago. Chest x-ray done in the emergency department demonstrated right upper lobe pneumonia. Patient admitted for further management. Hospital Course: Patient admitted to the medical floor and treated with IV Rocephin and Zithromax. He experienced intermittent fever and antibiotics changed to Rocephin and Levaquin after which she rapidly improved with treatment. He did not require oxygen. His symptoms resolved. He was also treated with IV Lasix for lower extremity edema. Overall patient clinically improved, currently asymptomatic and deemed stable for discharge. He is prescribed Levaquin to continue treatment for the pneumonia Vital Signs/Physical Exam: Temp Pulse Resp BP Pulse Ox 98.7 F 51 19 151/56 H 98 01/13/22 04:00 01/13/22 04:00 01/13/22 04:00 01/13/22 04:00 01/13/22 04:00 General: Alert, In no apparent distress, Oriented x3, Obese HEENT: Mucous membr. moist/pink Neck: JVD not distended Respiratory: Clear to auscultation bilaterally, Normal air movement Cardiovascular: Regular rate/rhythm, Normal S1 S2, Edema (Bilateral lower extremities) Gastrointestinal: Soft and benign, Non-distended Musculoskeletal: Swelling (Bilateral legs) Integumentary: Other (Bilateral lower extremity venous stasis dermatitis) Neurological: Normal strength at 5/5 x4 extr Laboratory Data at Discharge: WBC 4.20 K/uL (4.3-10.9) L 01/13/22 03:25 Hgb 9.7 g/dL (13.6-17.9) L 01/13/22 03:25 Hct 28.5 % (39.6-49.0) L 01/13/22 03:25 Plt Count 83 K/uL (152-406) L 01/13/22 03:25 Sodium 135 mmol/L (136-145) L 01/13/22 03:25 Potassium 4.3 mmol/L (3.5-5.1) 01/13/22 03:25 BUN 42 mg/dL (7-18) H 01/13/22 03:25 Creatinine 2.03 mg/dL (0.55-1.3) H 01/13/22 03:25 Glucose 199 mg/dL (74-106) H 01/13/22 03:25 Phosphorus 2.9 mg/dL (2.5-4.9) 01/11/22 03:17 Magnesium 1.7 mg/dL (1.8-2.4) L 01/11/22 03:17 Home Medications: Allopurinol 300 mg PO DAILY 04/18/19 Amlodipine Besylate 10 mg PO DAILY 04/18/19 Apremilast [Otezla] 30 mg PO BID 04/18/19 Fluticasone Furoate [Arnuity Ellipta] 100 mcg PO DAILY 04/18/19 Furosemide [Lasix*] 40 mg PO DAILY 04/18/19 Gabapentin 300 mg PO DAILY 04/18/19 Glipizide [Glipizide ER] 10 mg PO BID 04/18/19 Hydralazine HCl [Apresoline] 75 mg PO Q8H 04/18/19 Insulin Detemir [Levemir Flextouch] 130 units SQ DAILY 04/18/19 Liraglutide [Victoza 2-Malvin] 1.8 units SQ DAILY 04/18/19 Omeprazole [Prilosec] 40 mg PO DAILY 04/18/19 Rosuvastatin [Crestor*] 10 mg PO DAILY 04/18/19 Gabapentin 600 mg PO BEDTIME 04/19/19 lisinopriL [Prinivil*] 20 mg PO DAILY #30 tab 04/22/19 Aspirin [Ab Chewable Aspirin] 81 mg PO DIRECTED 01/11/22 Baclofen 10 mg PO DAILY 01/11/22 Calcium` 600 mg PO DAILY 01/11/22 Clopidogrel Bisulfate [Plavix] 75 mg PO DAILY 01/11/22 Ferrous Sulfate [Iron] 325 mg PO DAILY 01/11/22 Magnesium Oxide [Magnesium] 250 mg PO DAILY 01/11/22 [place]-3/Dha/Epa/Fish Oil [Fish Oil 1,000 mg Softgel] 1 each PO DAILY 01/11/22 Vit D 2,000 units PO DAILY 01/11/22 Duloxetine HCl 90 mg PO DAILY 01/12/22 Benzonatate [Tessalon Perle*] 100 mg PO TID PRN #30 cap 01/13/22 levoFLOXacin [Levaquin*] 750 mg PO Q24H #7 tab 01/13/22 New Medications: levoFLOXacin [Levaquin*] 750 mg PO Q24H #7 tab Benzonatate [Tessalon Perle*] 100 mg PO TID PRN #30 cap PRN Reason: Cough Diet: ADA Activity: Ad divya Followup: Yann Diaz DO [Primary Care Provider] - 1-2 Weeks (call for an apointment) Time spent managing pt's care (in minutes): 38
[2022-01-13 08:45] VITALS: BP 161/58; TEMP 97.8
[2022-01-13] MEDS: APREMILAST 30 MG PO SCH (09:00)
[2022-01-13] MEDS ORDERED: CALCIUM PO SCH (09:00)
[2022-01-13] MEDS ORDERED: levoFLOXacin 750 MG TAB PO SCH (09:00)
[2022-01-13] MEDS: HOME MED 1 EA UNK (Fluticasone Furoate [Arnuity Ellipta] 100 MCG Blst.W.Dev) PO SCH (09:00)
[2022-01-13] MEDS ORDERED: BACLOFEN 10 MG TAB PO SCH ×2 (09:00→21:00)
[2022-01-13] MEDS: HEPARIN 5000 UNIT/ML 1 ML VIAL SQ SCH (09:00)
[2022-01-13] MEDS ORDERED: CLOPIDOGREL 75 MG TABLET PO SCH (09:00)
[2022-01-13] MEDS ORDERED: FERROUS SULFATE 325 MG TAB PO SCH (09:00)
[2022-01-13] MEDS ORDERED: FUROSEMIDE 20 MG/ 2ML VIAL IV SCH (09:00)
[2022-01-13] MEDS ORDERED: CALCIUM CARBONATE 500 MG TAB PO SCH (09:00)
[2022-01-13] MEDS ORDERED: ASPIRIN 81 MG CHEWABLE TABLET PO SCH (09:00)
[2022-01-13] MEDS ORDERED: DULOXETINE 30 MG CAP PO SCH (09:00)
[2022-01-13] MEDS: INSULIN -REGULAR HUMAN 50 UNIT/0.5 ML ML SQ SCH (10:10)
[2022-01-13] MEDS: GABAPENTIN 300 MG CAP PO SCH (10:12)
[2022-01-13] MEDS: AMLODIPINE 5 MG TAB PO SCH (10:13)
[2022-01-13] MEDS: BENZONATATE 100 MG CAP PO PRN (10:13)
[2022-01-13] MEDS: allopurinoL 300 MG TAB PO SCH (10:14)
[2022-01-13] MEDS: MAGNESIUM OXIDE 400 MG TAB PO SCH (10:14)
[2022-01-13] MEDS: ROSUVASTATIN 10 MG TAB PO SCH (10:21)
[2022-01-13 11:38] VITALS: O2SAT 98
[2022-01-14] MEDS ORDERED: levoFLOXacin 750 MG TAB PO SCH (09:00)
== END 2022-01-13 11:55 | disposition home or self-care (01) | DRG 871 ==
LOC: ER 11:15 → ERHOLD 14:04 → INTOOBSV 14:04 → OBSVTOIN 14:04 → 4TH 16:49 → OBSVTOIN 01-11 08:23 → UNDODISIN 01-11 19:45
PROVIDERS: ADMIT Hospitalist; ATTEND Internal Medicine
DX: A41.9 Sepsis, unspecified organism (principal); J18.9 Pneumonia, unspecified organism; J96.91 Respiratory failure, unspecified with hypoxia; N17.0 Acute kidney failure with tubular necrosis; L03.116 Cellulitis of left lower limb; Z68.41 Body mass index [BMI] 40.0-44.9, adult; E66.01 Morbid (severe) obesity due to excess calories; I12.9 Hypertensive chronic kidney disease with stage 1 through stage 4 chronic kidney disease, or unspecified chronic kidney disease; N18.30 Chronic kidney disease, stage 3 unspecified; E11.22 Type 2 diabetes mellitus 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chronic kidney disease; E11.40 Type 2 diabetes mellitus 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neuropathy, unspecified; D63.1 Anemia in chronic kidney disease; M10.9 Gout, unspecified; G47.33 Obstructive sleep apnea (adult) (pediatric); E78.5 Hyperlipidemia, unspecified; D63.8 Anemia in other chronic diseases classified elsewhere; I87.2 Venous insufficiency (chronic) (peripheral); K21.9 Gastro-esophageal reflux disease without esophagitis; M19.90 Unspecified osteoarthritis, unspecified site; R51.9 Headache, unspecified; Z79.4 Long term (current) use of insulin; Z95.2 Presence of prosthetic heart valve; Z90.49 Acquired absence of other specified parts of digestive tract; Z79.82 Long term (current) use of aspirin; Z79.84 Long term (current) use of oral hypoglycemic drugs; Z79.02 Long term (current) use of antithrombotics/antiplatelets; Z79.899 Other long term (current) drug therapy; Z96.653 Presence of artificial knee joint, bilateral; Z87.891 Personal history of nicotine dependence; Z20.822 Contact with and (suspected) exposure to COVID-19
CPT/HCPCS: 0241U; 36415; 71045; 80048; 82947; 83605; 83735; 83880; 84100; 84145; 85025; 87040; 87070; 87081; 96374; 96375; 99285; G0378; J0456; J1644; J1815; J1940; J3475; J7040; J7050; J7613; J7644

== ENCOUNTER 2022-02-16 11:45 | Emergency (ER) | payer OTHER ==
--- OUTSIDE RECORDS SUMMARY | 2022-02-16 11:55 | XMS REPORT | Continuity of Care Document ---
:1945 Author Organization [facility] t Address [address] [place] [address] Care Team Providers Name Role Phone Yann Diaz Attending Clinician Unavailable LILIAN DELEON Attending Clinician Unavailable Antonino BARTHOLOMEW, Maryse Attending Clinician Unavailable Diya Rivera RN Attending Clinician Unavailable Lilian Deleon MD Attending Clinician [phone] LILIAN DELEON Attending Clinician Unavailable Geovani Canales MD Attending Clinician Kartik Killian MD Attending Clinician [phone] KARTIK KILLIAN Attending Clinician Unavailable Blayne BARTHOLOMEW, Bernarda Garrison Attending Clinician [phone] Neetu Shah Attending Clinician Unavailable Sam Paredes Attending Clinician LILIAN DELEON Admitting Clinician Unavailable Yann Diaz Admitting Clinician Unavailable Payers Payer Name Policy Type Policy Number Effective Date Expiration Date S soren MEDICARE PART A [id number] \T\ [id number] - MEDICARE GENERIC [facility] [id number] 2021 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 00:00:00 [facility] [id number] 2021 2021 SUPPLEMENTAL 00:00:00 00:00:00 MEDICARE [place] INCLUDES THE [facility] [id number] [facility] AENA C1 [id number] [facility] MEDICARE NOV[place] INCLUDES THE [facility] MB [id number] [facility] AETNA C1 [id number] [facility] MEDICARE NOVITAS MB [id number] [facility] AETNA C1 [id number] [facility] Problems Condition Condition Condition Status Onset Resolution Last Treating Co mments Source Name Details Category Date Date Treatment Clinician Date LBBB (left LBBB (left Disease Active [facility] bundle bundle 9-15 [facility] branch branch 00:00: of block) block) 00 Medicin post TAVR post TAVR e Essential Essential Disease Active [facility] hypertensi hypertensi 8-03 [facility] on, benign on, benign 00:00: Me dical 00 Center Bilateral Bilateral Disease Active [facility] carotid carotid 09-29 [facility] artery artery 00:00: Medical disease disease 00 Center CKD CKD Disease Active [facility] (chronic (chronic 09-29 [facility] kidney kidney 00:00: Medical disease), disease), 00 Cent er stage III stage III Severe Severe Disease Active [facility] aortic aortic 09-29 [facility] stenosis stenosis 00:00: Medica l 00 Center S/P TAVR S/P TAVR Disease Active [facility] implant of implant of 8-03 [facility] S3U#29 on S3U#29 on 00:00: Medi carey 09/29/21 09/29/21 Center S/P TAVR S/P TAVR Disease Active [facility] implant of implant of 8-03 [facility] S3U#29 on S3U#29 on 00:00: Medi carey 09/29/21 09/29/21 Center H/O H/O Disease Active [facility] asbestosis asbestosis 7-30 [facility] lung lung 00:00: Medical disease disease 00 Center Chronic Chronic Disease Active [facility] venous venous 30 kes insufficie insufficie 00:00: Me dical ncy ncy 00 Center Morbid Morbid Disease Active [facility] obesity obesity 7-30 [facility] with BMI with BMI 00:00: Medica l of of 00 Center 40.0-44.9, 40.0-44.9, adult adult Gout Gout Disease Active [facility] 7-30 [facility] 00:[facility]: Medical 00 Center CRLD CRLD Disease Active [facility] (chronic (chronic 7-30 [facility] restrictiv restrictiv 00:00: Me dical e lung e lung 00 Center disease) disease) History of History of Disease Active [facility] total left total left -30 [facility] knee knee 00:00: Medical replacemen replacemen 00 Ce nter t t (TKR)-2004 (TKR)-2004 Acute on Acute on Disease Active [facility] chronic chronic 7-30 [facility] diastolic diastolic 00:00: Medi carey CHF CHF 00 Center (congestiv (congestiv e heart e heart failure), failure), NYHA class NYHA class 3 3 Morbid Morbid Disease Active [facility] obesity obesity 7-30 [facility] with BMI with BMI 00:00: Medica l of of 00 Center 40.0-44.9, 40.0-44.9, adult adult Type 2 Type [address] [facility] diabetes diabetes -29 [facility] mellitus mellitus 00:00: Medica l 00 Center BALWINDER on BALWINDER on Disease Active [facility] CPAP CPAP 09-24 [facility] 00:00: Medical 00 Center Psoriasis Psoriasis Disease Active [facility] 29 [facility] 00:[facility]: Medical 00 Center Osteoarthr Osteoarthr Disease Active [facility] itis itis 09-24 [facility] 00:00: Medical 00 Center Essential Essential Disease Active [facility] hypertensi hypertensi 7-29 [facility] on on 00:00: Medical 00 Center Hyperlipid Hyperlipid Disease Active [facility] emia emia 29 [facility] 00:00: Medical 00 Center Type 2 Type [address] [facility] diabetes diabetes -29 [facility] mellitus mellitus 00:00: Medica l 00 Center Essential Essential Disease Active [facility] hypertensi hypertensi 7-29 [facility] on on 00:00: Medical 00 Center Hyperlipid Hyperlipid Disease Active [facility] emia emia 09-24 [facility] 00:00: Medical 00 Center Severe Severe Disease Active [facility] aortic aortic 09-23 [facility] stenosis stenosis 00:00: of 00 Medicin e History of History of Disease Active [facility] total left total left 09-23 Co llege knee knee 00:00: of replacemen replacemen 00 Me dicin t t e (TKR)-2004 (TKR)-2004 Gout Gout Disease Active [facility] 09-23 College 00:00: of 00 Medicin e Asbestosis Asbestosis Disease Active [facility] (HCCode) (HCCode) 09-23 Colleg e (HCC) lung (HCC) lung 00:00: of disease disease 00 Medicin e CRLD CRLD Disease Active [facility] (chronic (chronic 09-23 Colleg e restrictiv restrictiv 00:00: of e lung e lung 00 Medicin disease) disease) e Chronic Chronic Disease Active [facility] venous venous 09-23 [facility] insufficie insufficie 00:00: of ncy of ncy of 00 Medicin lower lower e extremity extremity Type II Type II Problem Active 2021-06-18 [facility] diabetes diabetes 10-22 04:44:46 l mellitus mellitus 00:00: n without without 00 complicati complicati on on (disorder) (disorder) Active 10/23/2015 Problem 06/18/2021 [facility] Essential Essential Problem Active 2021-06-18 [facility] hypertensi hypertensi 10-22 04:44:46 l on on 00:00: Juancho (disorder) (disorder) 00 Active 10/23/2015 Problem 06/18/2021 [facility] Essential Essential Problem Active 2021-06-18 [facility] tremor tremor 03-20 04:44:46 l (disorder) (disorder) 00:00: He rmann Active 00 03/20/2015 Problem 06/18/2021 [facility] [id number] [place] [id number] carotid Spirit stenosis [facility] [id number] Vitamin D Problem Comm on deficiency Spirit [facility] [id number] Chronic Problem Commo n diastolic Spirit congestive - CHI heart failure [facility] [id number] Chronic Problem Commo n heart Spirit failure - CHI with [facility] ejection Medical fraction Center Heart Murmur, Problem Common murmur cardiac Spirit - [facility] Gastroesop Chronic Problem Comm on hageal GERD Spirit reflux - CHI disease [facility] Iron Anemia, Problem Common deficiency iron Spirit anemia deficiency - [facility] Benign Hyperplast Problem Commo n neoplasm ic colon Spirit of colon polyp - [facility] [id number] Morbid Problem Commo n 9104 (severe) Spirit obesity - CHI due to [facility] [id number] Diabetic Problem Comm on polyneurop Spirit athy - [facility] associated St with type [facility] 2 diabetes Medica l mellitus Center [id number] PSA Problem Common (psoriatic Spirit arthritis) - [facility] [id number] History of Problem Co mmon gout Spirit - [facility] [id number] PUD Problem Common (peptic Spirit ulcer - CHI disease) [facility] [id number] residential Problem Com mon (current) Spirit use of - CHI insulin [facility] [id number] Chronic Problem Common obstructiv Spirit e [facility] d COPD Center type [id number] Proteinuri Problem Com mon a, Spirit unspecifie - CHI d [facility] [id number] Type 2 [place] 13373 diabetes Spirit mellitus - CHI with other diabetic [facility] kidney Medical complicati Center on [id number] 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 - CHI of left St foot [facility] Aortic Aortic Problem Common valve valve Spirit disorder stenosis, - CHI nonrheumat [facility] [id number] Non-pressu Problem Co mmon re chronic Spirit ulcer of - CHI other part St of left [facility] foot with Medical other Center specified severity [id number] Thrombocyt Problem Co mmon openia Spirit - [facility] [id number] Type 2 Problem Common diabetes Spirit mellitus - CHI 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[facility] nephropath Medica l y Center [id number] 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 - [facility] scalp and St skin of [facility] neck [facility] [id number] Type 2 Problem Common diabetes Spirit mellitus - CHI with foot St ulcer [facility] [id number] Diabetes Problem Comm on mellitus Spirit due to - CHI underlying condition [facility] with foot Medical ulcer Center [id number] Edema of Problem Comm on lower Spirit extremity - CHI due to [facility] venous Medical insufficie Center ncy Neuropathy Neuropath Problem Active 2021-06-18 [facility] (disorder) y 04:44:46 l (disorder) n Active Problem 06/18/2021 [facility] 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 04:44:46 l s s [place] (disorder) (disorder) Active Problem 06/18/2021 [facility] Metal Metal Problem Active 2021-06-18 Memor ia foreign foreign 04:44:46 l body in body in [place] upper limb upper limb (disorder) (disorder) Active Problem 06/18/2021 [facility] Allergies, Adverse Reactions, Alerts Allergy Allergy Status Severity Reaction(s) Onset Inactive Treating Comm ents Source Name Type Date Date Clinician No Known DA Active [facility] Allergie 3 Clear s 00:00: [place] 00 [facility] NO KNOWN Allergy Active [facility] Family History Family Member Diagnosis Comments Start Date Stop Date Source Natural brother Heart disease [facility] Natural brother Valvular heart [facility] S [facility] disease [facility] Natural father Heart disease [facility] Natural father Heart failure [facility] Natural father Other [facility] Natural mother Alzheimer's disease C [facility] Natural mother Stroke [facility] Social History Social Habit Start Date Stop Date Quantity Comments Source History of Tobacco [facility] - Use [facility] History SDOH [facility] Alcohol Frequency Medical Center History SDOH [facility] Alcohol Std Drinks Medica l Center History SDOH [facility] Alcohol Binge Medical [facility] Non[facility]Med Medical Center Alcohol intake 2021-10-04 2021-10-04 Current drinker [facility] S [facility] 00:00:00 00:00:00 of alcohol Medical Center (finding) History SDOH 2021-09-29 2021-09-[address] [facility] Transport Med 00:00:00 00:00:[address] History SDOH 2021-09-29 2021-09-[address] [facility] Housing Unable to 00:00:00 00:00:00 Medical Center Pay History [facility] 2021-09-29 2021-09-[address] [facility] Housing Places 00:00:00 00:00:00 Medical Ce nter Lived History [facility] 2021-09-29 2021-09-[address] [facility] Housing Homeless 00:00:00 00:00:00 Medical Center Last Year Cigarettes smoked 2021-09-24 2021-09-[address] [facility] current (pack per 00:00:00 00:00:00 Medical Center day) - Reported Tobacco use and 2021-09-24 2021-09-[address] [facility] exposure 00:00:00 00:00:00 Medical Center History [facility] 2021-09-24 2021-09-[address] [facility] Alcohol Comment 00:00:00 00:00:00 Medical C enter Sex Assigned At [address] [facility]es 00:00:00 00:00:00 Medical Center Smoking Status Start Date Stop Date Source Never smoked tobacco [facility] Social History 2021-06-15 15:08:27 2021-06-15 15:08:27 [facility] Medications Ordered Filled Start Stop Current Ordering Indication Dosage Frequency Signature Comments Components Source Medication Medication Date Date Medication? Clinician (SIG) Name Name glipiZIDE 2021-02 Yes 10mg Take 10 mg [facility] (GLUCOTROL) 2-12 by mouth Yessica ege 10 MG CR 16:18: daily. of tablet 26 Medicin e Apremilast 2021-02 Yes Take by [facility] (OTEZLA) 30 2-12 mouth. Colleg e MG TABS 16:18: of 26 Medicin e Amoxicillin 2021-02- No Take 4 [place] [facility] 500 MG TABS 2-05 12-12 tablets by Brunilda enriquez 00:00: 00:00 mouth of 00 :00 before Medicin dental e procedure. glipiZIDE Yes 10mg Take 10 mg [facility] (GLUCOTROL) 9-15 by mouth Yessica ege 10 MG CR 13:26: daily. of tablet 54 Medicin e Apremilast 2022-0 Yes Take by [facility] (OTEZLA) 30 9-15 mouth. Colleg e MG TABS 13:26: of 54 Medicin e omega-3 2021-0 Yes 2g Q.5D Take [address] fatty 8-30 by mouth 2 [facility] acids-fish 16:10: (two) Medica l oil 01 times Center 340-1,000 daily. mg Cap per capsule omega-3 2021-0 Yes 2g Q.5D Take [address] fatty 8-30 by mouth 2 [facility] acids-fish 16:10: (two) Medica l oil 01 times Center 340-1,000 daily. mg Cap per capsule multivit-mi 0 Yes Take by [facility] n/FA/lycope 8-30 mouth. [facility]ukes n/lutein 16:09: Medical (CENTRUM 55 Center SILVER MEN ORAL) multivit-mi 2021-0 Yes Take by [facility] n/FA/lycope 8-30 mouth. [facility]ukes n/lutein 16:09: Medical (CENTRUM 55 [place] SILVER MEN ORAL) magnesium 2021-0 Yes 400mg QD Take [address] oxide 250 8-30 mg by [facility]ukes mg 16:09: mouth Medical magnesium 48 daily. Center Tab tablet magnesium 2021-0 Yes 400mg QD Take [address] oxide 250 8-30 mg by [facility]ukes mg 16:09: mouth Medical magnesium 48 daily. Center Tab tablet glipiZIDE 2021-0 Yes 10mg Take [address] (GLUCOTROL) 8-30 by mouth 2 [facility] kes 10 MG 16:09: (two) Medical tablet 30 times Center daily before meals. glipiZIDE 2022-0 Yes 10mg Take [address] (GLUCOTROL) 8-30 by mouth 2 [facility] kes 10 MG 16:09: (two) Medical tablet 30 times Center daily before meals. ferrous 2022-0 Yes 325mg Take 325 [facility] sulfate 325 8-30 mg by [facility] (65 FE) MG 16:09: mouth 3 Medi carey EC tablet 19 (three) Center times daily with meals. ferrous 2022-0 Yes 325mg Take 325 [facility] sulfate 325 8-30 mg by [facility] (65 FE) MG 16:09: mouth 3 Medi carey EC tablet 19 (three) Center times daily with meals. calcium 2022-0 Yes 600mg Take 600 [facility] carbonate 8-30 mg by [facility] (OS-CAREY) 16:08: mouth 2 Medica l 600 mg 58 (two) Center calcium times (1,500 mg) daily with Tab breakfast and dinner. calcium 0 Yes 600mg Take 600 [facility] carbonate 8-30 mg by [facility] (OS-CAREY) 16:08: mouth 2 Medica l 600 mg 58 (two) Center calcium times (1,500 mg) daily with Tab breakfast and dinner. aspirin 81 Yes 81mg QD Take [address] MG EC 8-30 by mouth [facility] tablet 16:08: daily. [address] aspirin 81 0 Yes 81mg QD Take [address] MG EC 8-30 by mouth [facility] tablet 16:08: daily. [address] apremilast Yes Take by [facility] (Otezla) 30 8-30 mouth. [facility] mg Tab 16:08: [address] apremilast Yes Take by [facility] (Otezla) 30 8-30 mouth. [facility] mg Tab 16:08: [address] clopidogreL 2022- No 75mg QD Take [address] (PLAVIX) 75 10-01-05 tablet (75 L [facility]kes mg tablet 00:00: 23:59 mg total) Me dical 00 :00 by mouth Center daily. clopidogreL 2022- No 75mg QD Take [address] (PLAVIX) 75 10-01-05 tablet (75 [facility] mg tablet 00:00: 23:59 mg total) Me dical 00 :00 by mouth Center daily. furosemide 2021- No 40mg QD Take [address] (LASIX) 40 10-01 tablet (40 [facility] MG tablet 00:00: 23:59 mg total) Me dical 00 :00 by mouth Center daily for 90 days. furosemide 2021-2021- No 40mg QD Take [address] (LASIX) 40 10-01-03 tablet (40 [facility] kes MG tablet 00:00: 23:59 mg total) Me dical 00 :00 by mouth Center daily for 90 days. furosemide 2021-2021- No 40mg Q.5D Take [address] (LASIX) 40 09-30 08-04 by mouth 2 [facility] k[facility] MG tablet 10:58: 00:00 (two) Medica l 47 :00 times Center daily. furosemide 2022-0 2022- No 40mg Q.5D Take [address] (LASIX) 40 8- 08-04 by mouth 2 [facility] k[facility] MG tablet 10:58: 00:00 (two) Medica l 47 :00 times Center daily. lisinopril 2022-0 Yes 20mg Take 1 [facility] (PRINIVIL, 8-04 Tablet by Yessica ege ZESTRIL) 20 00:00: mouth two o f MG tablet 00 times Medicin daily. e clopidogrel 2022-0 Yes 75mg Take 1 [facility] (PLAVIX) 75 8-04 Tablet by Col [facility] MG Tablet 00:00: mouth of 00 daily. Medicin e furosemide 2022-0 Yes 40mg Take 1 [facility] (LASIX) 40 8-04 Tablet by Yessica ege MG tablet 00:00: mouth of 00 daily. Medicin e lisinopril 2022-0 Yes 20mg Take 1 [facility] (PRINIVIL, 8-04 Tablet by Yessica ege ZESTRIL) 20 00:00: mouth two o f MG tablet 00 times Medicin daily. e furosemide 2022-0 Yes 40mg Take 1 [facility] (LASIX) 40 8-04 Tablet by Yessica ege MG tablet 00:00: mouth of 00 daily. Medicin e lisinopriL 2022-0 2023- No 20mg Take [address] (PRINIVIL,Z 8-04 08-04 tablet (20 L [facility]kes ESTRIL) 20 00:00: 23:59 mg total) M edical MG tablet 00 :00 by mouth 2 Cent er (two) times daily before meals. lisinopriL 2022-0 2023- No 20mg Take [address] (PRINIVIL,Z 8-04 08-04 tablet (20 L [facility] ESTRIL) 20 00:00: 23:59 mg total) M edical MG tablet 00 :00 by mouth 2 Cent er (two) times daily before meals. clopidogrel 2022-0 2022- No 75mg Take 1 [place] [facility] (PLAVIX) 75 8-04 12-12 Tablet by Co llege MG Tablet 00:00: 00:00 mouth of 00 :00 daily. Medicin e minocycline 2021-0 2022- No 100mg Take 1 [facility] (MINOCIN) 09-30 capsule by Col lege 100 MG 00:00: 00:00 mouth two of capsule 00 :00 times Medicin daily. e apixaban 2021-0 2- No 5mg Q.5D Take [address] (ELIQUIS) 5 09-30- tablet (5 [facility] mg Tab 00:00: 23:59 mg total) Medic al tablet 00 :00 by mouth 2 Center (two) times daily for 30 days. apixaban 2021-0 2022- No 5mg Q.5D Take [address] (ELIQUIS) 5 09-30- tablet (5 [facility] mg Tab 00:00: [...] every 12 (twelve) hours for 5 days. mINOCYCLine 2021-0 2021- No 100mg Take [address] (MINOCIN,DY 09-30 capsule Luke s NACIN) 100 00:00: 23:59 (100 mg Med ical MG capsule 00 :00 total) by Cent er mouth every 12 (twelve) hours for 5 days. Apremilast 0 Yes Take by [facility] (OTEZLA) 30 7- mouth. Colleg e MG TABS 13:20: of 25 Medicin e furosemide 0 Yes 40mg Take 40 mg [facility] (LASIX) 40 7-28 by mouth Colle ge MG tablet 13:20: daily. of 02 Medicin e glipiZIDE 0 Yes 10mg Take 10 mg [facility] (GLUCOTROL) 28 by mouth Yessica ege 10 MG CR 13:20: daily. of tablet 02 Medicin e rosuvastati Yes TAKE 1 [facility] n [...] BEDTIME e FOR 90 DAYS rosuvastati Yes 10mg QD Take [address] n (CRESTOR) 7-13 by mouth Luke s 10 MG 00:00: nightly. Medical tablet 00 [place] rosuvastati Yes 10mg QD Take [address] n (CRESTOR) 7-13 by mouth Luke s 10 MG 00:00: nightly. Medical tablet 00 [place] allopurinol Yes TAKE 1 [facility] (ZYLOPRIM) 7-11 TABLET BY Yessica ege 300 MG 00:00: MOUTH of tablet 00 EVERY DAY Medicin e allopurinol Yes TAKE 1 [facility] (ZYLOPRIM) 7-11 TABLET BY Yessica ege 300 MG 00:00: MOUTH of tablet 00 EVERY DAY Medicin e allopurinol Yes TAKE 1 [facility] (ZYLOPRIM) 7-11 TABLET BY Yessica ege 300 MG 00:00: MOUTH of tablet 00 EVERY DAY Medicin e allopurinoL Yes 300mg QD Take [address] (ZYLOPRIM) 7-11 mg by [facility] 300 MG 00:00: mouth Medical tablet 00 daily. [place] allopurinoL Yes 300mg QD Take [address] (ZYLOPRIM) 7-11 mg by [facility] 300 MG 00:00: mouth Medical tablet 00 daily. [place] omeprazole Yes TAKE 1 [facility] (PRILOSEC) [...] capsule 00 EVERY DAY Medicin e omeprazole 0 Yes 40mg QD Take [address] (PriLOSEC) 6-29 by mouth [facility] 40 MG 00:00: daily. Medical capsule 00 [place] omeprazole 0 Yes 40mg QD Take [address] (PriLOSEC) 6-29 by mouth [facility] 40 MG 00:00: daily. Medical capsule 00 [place] metoprolol Yes 100mg 100 mg [facility] (TOPROL-XL) 6-24 daily. Colleg e 100 MG XL 00:00: Take 1/2 of tablet 00 tablet Medicin daily e lisinopril Yes TAKE 1 [facility] (PRINIVIL, 6-24 TABLET BY Yessica CRANE) 20 00:00: MOUTH of MG tablet 00 EVERY DAY Medic in e metoprolol Yes TAKE 1 [facility] (TOPROL-XL) 6-24 TABLET BY Col lege 100 MG XL 00:00: MOUTH of tablet 00 EVERY DAY Medicin e metoprolol 0 Yes TAKE 1 [facility] (TOPROL-XL) 6-24 TABLET BY Col lege 100 MG XL 00:00: MOUTH of tablet 00 EVERY DAY Medicin e metoprolol 0 Yes 100mg QD Take [address] succinate 6-24 mg by [facility]ukes (TOPROL-XL) 00:00: mouth Medic al 100 MG 24 00 daily. [place] hr tablet metoprolol 2021-0 Yes 100mg QD Take [address] succinate 6-24 mg by Lukes (TOPROL-XL) 00:00: mouth Medic al 100 MG 24 00 daily. [place] hr tablet lisinopriL 2021-0 2- No 20mg QD Take [address] [facility] (PRINIVIL,Z 6-24 08-04 by mouth Bakari es ESTRIL) 20 00:00: 00:00 daily. Medi carey MG tablet 00 :00 [place] lisinopriL 2021-0 2022- No 20mg QD Take [address] (PRINIVIL,Z 6-24 08-04 by mouth Bakari es ESTRIL) 20 00:00: 00:00 daily. Medi carey MG tablet 00 :00 [place] gabapentin 2022-0 Yes TAKE 1 [facility] (NEURONTIN) 6-23 [...] THE EVENING FOR 90 DAYS gabapentin Yes Q.5D Take by [facility] (NEURONTIN) 6-23 mouth 2 [facility] 300 MG 00:00: (two) Medical capsule 00 times Center daily. gabapentin Yes Q.5D Take by [facility] (NEURONTIN) 6-23 mouth 2 [facility] 300 MG 00:00: (two) Medical capsule 00 times Center daily. VICTOZA 18 Yes INJECT 1.8 [facility] MG/3ML SOPN 6-18 MG College 00:00: SUBCUTANEO of 00 USLY EVERY Medicin DAY e VICTOZA 18 Yes INJECT 1.8 [facility] MG/3ML SOPN 6-18 MG [facility] 00:00: SUBCUTANEO of 00 USLY EVERY Medicin DAY e VICTOZA 18 Yes INJECT 1.8 [facility] MG/3ML SOPN 6-18 MG [facility] 00:00: SUBCUTANEO of 00 USLY EVERY Medicin DAY e liraglutide Yes 1.8mg QD Inject 1.[address] (Victoza 6-18 mg [facility]ukes 2-Malvin) 0.6 00:00: subcutaneo M edical mg/0.1 mL 00 usly Center (18 mg/3 daily. mL) syringe liraglutide Yes 1.8mg QD Inject 1.[address] (Victoza 6-18 mg [facility]ukes 2-Malvin) 0.6 00:00: subcutaneo M edical mg/0.1 mL 00 usly Center (18 mg/3 daily. mL) syringe Insulin Yes INJECT 60 [facility] Detemir 6-13 UNITS [facility] (LEVEMIR 00:00: UNDER THE of FLEXTOUCH) 00 SKIN TWICE Med icin 100 UNIT/ML A DAY e SOPN Insulin Yes INJECT 60 [facility] Detemir 6-13 UNITS [facility] (LEVEMIR 00:00: UNDER THE of FLEXTOUCH) 00 SKIN TWICE Med icin 100 UNIT/ML A DAY e SOPN Insulin 0 Yes INJECT 60 [facility] Detemir 6-13 UNITS [facility] (LEVEMIR 00:00: UNDER THE of FLEXTOUCH) 00 SKIN TWICE Med icin 100 UNIT/ML A DAY e SOPN Levemir 0 Yes 60U Q.5D Inject 60 [facility] t FlexTouch 6-13 Units [facility] U-100 00:00: subcutaneo Medica l Insuln 100 00 usly 2 Center unit/mL (3 (two) mL) InPn times injection daily. Levemir Yes 60U Q.5D Inject 60 [facility] t FlexTouch 6-13 Units [facility] U-100 00:00: subcutaneo Medica l Insuln 100 00 usly 2 Center unit/mL (3 (two) mL) InPn times injection daily. ARNUITY 0 Yes INHALE 1 [facility] ELLIPTA 100 5-23 PUFF BY Colle ge [...] AEPB 00 EVERY DAY Medicin 90 e amlodipine 0 Yes 10mg Take 10 mg [facility] (NORVASC) 5-16 by mouth Colleg e 10 MG 00:00: daily. of tablet 00 Medicin e hydrALAZINE Yes TAKE 1 [facility] (APRESOLINE 5-16 TABLET BY Col lege ) 100 MG 00:00: MOUTH of tablet 00 THREE Medicin TIMES A e DAY amlodipine Yes TAKE 1 [facility] (NORVASC) 5-16 TABLET BY Colle ge 10 MG 00:00: MOUTH of tablet 00 THREE Medicin TIMES A e DAY hydrALAZINE 2021-0 Yes TAKE 1 [facility] (APRESOLINE 5-16 TABLET BY Col lege ) 100 MG 00:00: MOUTH of tablet 00 THREE Medicin TIMES A e DAY amlodipine 2021-0 Yes TAKE 1 [facility] (NORVASC) 5-16 TABLET BY Colle ge 10 MG 00:00: MOUTH of tablet 00 THREE Medicin TIMES A e DAY hydrALAZINE 2021-0 Yes TAKE 1 [facility] (APRESOLINE 5-16 TABLET BY Col lege ) 100 MG 00:00: MOUTH of tablet 00 THREE Medicin TIMES A e DAY amLODIPine 2021-0 Yes 10mg Q.[id number] Take [address] (NORVASC) 5-16 [id number] by mouth 3 [facility] 10 MG 00:00: 3D (three) Medical tablet 00 times Center daily. hydrALAZINE 2021-0 Yes 100mg Q.[id number] Take [address] (APRESOLINE 5-16 [id number] mg by L ukes ) 100 MG 00:00: 3D mouth 3 Medica l tablet 00 (three) Center times daily. amLODIPine 2021-0 Yes 10mg Q.[id number] Take [address] (NORVASC) 5-16 [id number] by mouth 3 [facility] 10 MG 00:00: 3D (three) Medical tablet 00 times Center daily. hydrALAZINE 2021-0 Yes 100mg Q.[id number] Take [address] (APRESOLINE 5-16 [id number] mg by L ukes ) 100 MG 00:00: 3D mouth 3 Medica l tablet 00 (three) Center times daily. baclofen 2021-0 Yes TAKE 1 [facility] (LIORESAL) 5-03 TABLET BY Yessica ege 10 MG 00:00: MOUTH of tablet 00 EVERY Medicin EVENING e NEEDED FOR SPASMS baclofen 2021-0 Yes TAKE 1 [facility] (LIORESAL) 5-03 TABLET BY Yessica ege 10 MG 00:00: MOUTH of tablet 00 EVERY Medicin EVENING e NEEDED FOR SPASMS baclofen 2021-0 Yes TAKE 1 [facility] ([facility]ES[facility] 5-03 TABLET BY Yessica ege 10 MG 00:00: MOUTH of tablet 00 EVERY Medicin EVENING e NEEDED FOR SPASMS baclofen 2021-0 Yes 10mg QD [address] [facility] ([facility] 00 [facility] baclofen 0 Yes 10mg QD [address] [facility] ([facility]-03 [facility] 10 MG 00:[facility] tablet 00 Center calcium-vit 0 Yes 1 tab, PO, [facility] dugan D 600 4-19 TID, 0 l mg-200 15:17: Refill(s) n units oral 00 tablet calcium-vit 0 Yes 1 tab, PO, [facility] dugan D [...] H ermann tablet 00 tab, 0 Refill(s) iron Yes 325 mg = 1 [facility] sulfate 4-19 tab, PO, l (ferrous 15:16: TID, 0 [place] sulfate) 00 Refill(s) 325 mg oral tablet magnesium 0 Yes 250 mg = 1 Me moria gluconate 4-19 tab, PO, l 250 mg oral 15:16: BID, # 60 H ermann tablet 00 tab, 0 Refill(s) Centrum 0 Yes 1 tab, PO, Car osman Silver oral 4-19 Daily, # l tablet 15:15: 90 tab, 0 n 00 Refill(s) Ab Low Yes 81 mg = 1 Mem oria Dose 81 mg -19 tab, PO, l oral 15:15: Daily, 0 [place] delayed 00 Refill(s) release tablet Fish Oil Yes 1,000 mg = Mem oria 1000 mg -19 1 cap, PO, l oral 15:15: Daily, 0 [place] capsule 00 Refill(s) Centrum 0 Yes 1 tab, PO, Car osman Silver oral 4-19 Daily, # l tablet 15:15: 90 tab, 0 n 00 Refill(s) Ab Low 0 Yes 81 mg = 1 Mem oria Dose 81 mg 4-19 tab, PO, l oral 15:15: Daily, 0 [place] delayed 00 Refill(s) release tablet Fish Oil Yes 1,000 mg = Mem oria 1000 mg 4-19 1 cap, PO, l oral 15:15: Daily, 0 [place] capsule 00 Refill(s) amLODIPine 0 Yes 10 mg = 1 Me moria 10 mg oral 4-19 tab, PO, l tablet 15:14: Daily, # [place] 00 90 tab, 1 Refill(s) hydrALAZINE 0 Yes 100 mg = 1 [facility] 100 mg oral 4-19 tab, PO, l tablet 15:14: TID, # 90 n 00 tab, 3 Refill(s) furosemide 0 Yes 40 mg = 1 Me moria 40 mg oral 4-19 tab, PO, l tablet 15:14: Daily, # [place] 00 90 tab, 1 Refill(s) amLODIPine 0 Yes 10 mg = 1 Me moria 10 mg oral 4-19 tab, PO, l tablet 15:14: Daily, # [place] 00 90 tab, 1 Refill(s) hydrALAZINE 2021-0 Yes 100 mg = 1 [facility]oria 100 mg oral 4-19 tab, PO, l tablet 15:14: TID, # 90 n 00 tab, 3 Refill(s) furosemide 2021-0 Yes 40 mg = 1 Me moria 40 mg oral 4-19 tab, PO, l tablet 15:14: Daily, # [place] 00 90 tab, 1 Refill(s) Otezla 30 2021-0 Yes 30 mg = 1 Mem oria mg oral 4-19 tab, PO, l tablet 15:13: BID, 0 [place] 00 Refill(s) Otezla 30 2021-0 Yes 30 mg = 1 Mem oria mg oral 4-19 tab, PO, l tablet 15:13: BID, 0 [place] 00 Refill(s) baclofen 10 2021-0 Yes = 1 tab, Me moria mg oral 3-16 PO, QPM, l tablet 14:40: PRN [place] 00 NEEDED FOR SPASMS, # 90 tab, 2 Refill(s), Pharmacy: [id number] baclofen Yes = 1 tab, Me moria mg oral 3-16 PO, QPM, l tablet 14:40: PRN [place] 00 NEEDED FOR SPASMS, # 90 tab, 2 Refill(s), Pharmacy: [facility] [id number] baclofen No = 1 tab, Me moria mg oral 9-01 PO, QPM, l tablet 14:41: PRN [place] 00 NEEDED FOR SPASMS, # 90 tab, 2 Refill(s), Pharmacy: [id number] baclofen No = 1 tab, Me moria mg oral 9-01 PO, QPM, l tablet 14:41: PRN [place] 00 NEEDED FOR SPASMS, # 90 tab, 2 Refill(s), Pharmacy: [id number] baclofen No 10 mg = 1 M emoria mg oral 6-10 tab, PO, l tablet 16:32: QPM, PRN [place] 00 Spasms, # 30 tab, 2 Refill(s), Pharmacy: [id number] baclofen No 10 mg = 1 M emoria mg oral 6-10 tab, PO, l tablet 16:32: QPM, PRN [place] 00 Spasms, # 30 tab, 2 Refill(s), Pharmacy: [facility][id number] Levemir Yes 130, Memoria FlexPen 4-16 SUB-Q, 0 l 15:32: Refill(s) [place] Levemir Yes 130, [facility] FlexPen 4-16 SUB-Q, 0 l 15:32: Refill(s) [place] 00 lisinopril 2020-0 Yes 20 mg = 1 Me moria 20 mg oral 4-17 tab, PO, l tablet 15:50: Daily, # [place] 00 30 tab, 0 Refill(s) lisinopril 2020-0 Yes 20 mg = 1 Me moria 20 mg oral 4-17 tab, PO, l tablet 15:50: Daily, # [place] 00 30 tab, 0 Refill(s) Lisinopril Lisinopril No 1{table BID Lisinopril 20 [...] 50 MCG (1999 UT) (1999 UT) (1999) Levemir Levemir No [facility] FlexTouch FlexTouch [...] Calcium 10 MG 10 MG 10 MG hydrALAZINE hydrALAZINE No 1{table TID hydrALAZIN [...] 50 MCG (1999 UT) (1999 UT) (1999) Levemir Levemir No [facility]mir FlexTouch FlexTouch [...] Calcium 10 MG 10 MG 10 MG hydrALAZINE hydrALAZINE No 1{table TID hydrALAZIN [...] Calcium 10 MG 10 MG 10 MG Centrum Centrum No Centrum Silver - Silver - Silver - Otezla 30 Otezla 30 No 1{table BID Otezla 30 MG MG t} MG Iron 325 Iron 325 No 1{table QD Iron 325 (65 Fe) MG (65 Fe) MG t} (65 Fe) MG Victoza 18 Victoza 18 No QD Victoza 18 MG/3ML MG/3ML MG/3ML glipiZIDE glipiZIDE No glipiZIDE 10 MG 10 MG 10 MG Omeprazole Omeprazole No QD Omeprazole 40 [...] 75 MG 75 MG Bisulfate 75 MG OneTouch OneTouch No BID OneTouch Ultra Blue Ultra Blue Ultra Blue - - - amLODIPine amLODIPine No QD amLODIPine Besylate 10 Besylate 10 Besylate MG MG 10 MG Calcium 600 Calcium 600 No 1{table BID Calcium MG MG t_with_ 600 MG meals} glipiZIDE glipiZIDE No BID glipiZIDE 10 MG 10 MG 10 MG Levemir Levemir No [facility] FlexTouch FlexTouch FlexTouch 100 UNIT/ML 100 UNIT/ML 100 UNIT/ML Magnesium Magnesium No 1{table QD Magnesium 250 MG 250 MG t_with_ 250 MG a_meal} Vitamin D Vitamin D No 1{table QD Vitamin D 50 MCG 50 MCG t} 50 MCG (1999 UT) (1999 UT) (1999) BD Pen BD Pen No TID BD Pen Needle Mini Needle Mini Needle U/F 31G X 5 U/F 31G X 5 Mini U/F MM MM 31G X 5 MM Metoprolol Metoprolol No QD Metoprolol Succinate Succinate Succinate ER 100 MG ER 100 MG ER 100 MG Fish Oil Fish Oil No 1{capsu QD Fish Oil 1000 MG 1000 MG le} 1000 MG Gabapentin Gabapentin No 1{capsu Gabapentin 300 MG 300 MG le} 300 MG hydrALAZINE hydrALAZINE No 1{table TID hydrALAZIN HCl 100 MG HCl 100 MG t_with_ E HCl 100 food} MG Lisinopril Lisinopril No 1{table QD Lisinopril 20 MG 20 MG t} 20 MG Furosemide Furosemide No 1{table QD Furosemide 20 MG 20 MG t} 20 MG Ab Ab No 1{table QD Ab Aspirin EC Aspirin EC t} Aspirin EC Low Dose 81 Low Dose 81 Low Dose MG MG 81 MG Arnuity Arnuity No 1{puff} QD Arnuity Ellipta 100 Ellipta 100 Ellipta MCG/ACT MCG/ACT 100 MCG/ACT Iron 325 Iron 325 No 1{table QD Iron 325 (65 Fe) MG (65 Fe) MG t} (65 Fe) MG Rosuvastati Rosuvastati No 1{table Rosuvastat n Calcium n Calcium t} in Calcium 10 MG 10 MG 10 MG Fish Oil Fish Oil No 1{capsu QD Fish Oil 1000 MG 1000 MG le} 1000 MG Otezla 30 Otezla 30 No 1{table BID Otezla 30 MG MG t} MG BD Pen BD Pen No BD Pen Needle Mini Needle Mini Needle U/F 31G X 5 U/F 31G X 5 Mini U/F MM MM 31G X 5 MM Allopurinol Allopurinol No QD Allopurino 300 MG 300 MG l 300 MG Centrum Centrum No Centrum Silver - Silver - Silver - Omeprazole Omeprazole No QD Omeprazole 40 MG 40 MG 40 MG Rosuvastati Rosuvastati No Rosuvastat n Calcium n Calcium in Calcium 10 MG 10 MG 10 MG OneTouch OneTouch No BID OneTouch Ultra Blue Ultra Blue Ultra Blue - - - Gabapentin Gabapentin No 1{capsu Gabapentin 300 MG 300 MG le} 300 MG hydrALAZINE hydrALAZINE No 1{table TID hydrALAZIN HCl 100 MG HCl 100 MG t_with_ E HCl 100 food} MG Magnesium Magnesium No 1{table QD Magnesium 250 MG 250 MG t_with_ 250 MG a_meal} BD Pen BD Pen No TID BD Pen Needle Mini Needle Mini Needle U/F 31G X 5 U/F 31G X 5 Mini U/F MM MM 31G X 5 MM Metoprolol Metoprolol No QD Metoprolol Succinate Succinate Succinate ER 100 MG ER 100 MG ER 100 MG Clopidogrel Clopidogrel No 1{table QD Clopidogre Bisulfate Bisulfate t} l 75 MG 75 MG Bisulfate 75 MG Vitamin D Vitamin D No 1{table QD Vitamin D 50 MCG 50 MCG t} 50 MCG (1999 UT) (1999 UT) (1999) Victoza 18 Victoza 18 No QD Victoza 18 MG/3ML MG/3ML MG/3ML amLODIPine amLODIPine No QD amLODIPine Besylate 10 Besylate 10 Besylate MG MG 10 MG Calcium 600 Calcium 600 No 1{table BID Calcium MG MG t_with_ 600 MG meals} Levemir Levemir No Levemir FlexTouch FlexTouch FlexTouch 100 UNIT/ML 100 UNIT/ML 100 UNIT/ML Furosemide Furosemide No 1{table QD Furosemide 20 MG 20 MG t} 20 MG glipiZIDE glipiZIDE No glipiZIDE 10 MG 10 MG 10 MG Lisinopril Lisinopril No 1{table QD Lisinopril 20 MG 20 MG t} 20 MG Ab Ab No 1{table QD Ab Aspirin EC Aspirin EC t} Aspirin EC Low Dose 81 Low Dose 81 Low Dose MG MG 81 MG Arnuity Arnuity No 1{puff} QD Arnuity Ellipta 100 Ellipta 100 Ellipta MCG/ACT MCG/ACT 100 MCG/ACT Iron 325 Iron 325 No 1{table QD Iron 325 (65 Fe) MG (65 Fe) MG t} (65 Fe) MG Rosuvastati Rosuvastati No 1{table Rosuvastat n Calcium n Calcium t} in Calcium 10 MG 10 MG 10 MG Fish Oil Fish Oil No 1{capsu QD Fish Oil 1000 MG 1000 MG le} 1000 MG Otezla 30 Otezla 30 No 1{table BID Otezla 30 MG MG t} MG BD Pen BD Pen No BD Pen Needle Mini Needle Mini Needle U/F 31G X 5 U/F 31G X 5 Mini U/F MM MM 31G X 5 MM Allopurinol Allopurinol No QD Allopurino 300 MG 300 MG l 300 MG Centrum Centrum No Centrum Silver - Silver - Silver - Omeprazole Omeprazole No QD Omeprazole 40 MG 40 MG 40 MG Rosuvastati Rosuvastati No Rosuvastat n Calcium n Calcium in Calcium 10 MG 10 MG 10 MG OneTouch OneTouch No BID OneTouch Ultra Blue Ultra Blue Ultra Blue - - - Gabapentin Gabapentin No 1{capsu Gabapentin 300 MG 300 MG le} 300 MG hydrALAZINE hydrALAZINE No 1{table TID hydrALAZIN HCl 100 MG HCl 100 MG t_with_ E HCl 100 food} MG Magnesium Magnesium No 1{table QD Magnesium 250 MG 250 MG t_with_ 250 MG a_meal} BD Pen BD Pen No TID BD Pen Needle Mini Needle Mini Needle U/F 31G X 5 U/F 31G X 5 Mini U/F MM MM 31G X 5 MM Metoprolol Metoprolol No QD Metoprolol Succinate Succinate Succinate ER 100 MG ER 100 MG ER 100 MG Clopidogrel Clopidogrel No 1{table QD Clopidogre Bisulfate Bisulfate t} l 75 MG 75 MG Bisulfate 75 MG Vitamin D Vitamin D No 1{table QD Vitamin D 50 MCG 50 MCG t} 50 MCG (1999) (1999) (1999) Victoza 18 Victoza 18 No QD Victoza 18 MG/3ML MG/3ML MG/3ML amLODIPine amLODIPine No QD amLODIPine Besylate 10 Besylate 10 Besylate MG MG 10 MG Calcium 600 Calcium 600 No 1{table BID Calcium MG MG t_with_ 600 MG meals} Levemir Levemir No [facility] FlexTouch FlexTouch FlexTouch 100 UNIT/ML 100 UNIT/ML 100 UNIT/ML Furosemide Furosemide No 1{table QD Furosemide 20 MG 20 MG t} 20 MG glipiZIDE glipiZIDE No glipiZIDE 10 MG 10 MG 10 MG Lisinopril Lisinopril No 1{table QD Lisinopril 20 MG 20 MG t} 20 MG Ab Ab No 1{table QD Ab Aspirin EC Aspirin EC t} Aspirin EC Low Dose 81 Low Dose 81 Low Dose MG MG 81 MG Arnuity Arnuity No 1{puff} QD Arnuity Ellipta 100 Ellipta 100 Ellipta MCG/ACT MCG/ACT 100 MCG/ACT Levemir Levemir Yes Yann 60 units Com mon FlexTouch FlexTouch [facility] - [facility] OneTouch OneTouch No BID OneTouch Ultra [...] 50 MCG (1999 UT) (1999 UT) (1999) Allopurinol Allopurinol No QD Allopurino 300 [...] t} 50 MCG (1999 UT) (1999) (1999) Lisinopril Lisinopril No 1{table QD Lisinopril [...] MCG t} 50 MCG (1999) (1999) (1999) Magnesium Magnesium No 1{table QD Magnesium [...] 1000 MG 1000 MG le} 1000 MG Eliquis 5 Eliquis 5 Eliquis 5 mg 5 mg mg 5 mg 11-05 mg 5 mg 00:00 :00 Immunizations Ordered Immunization Filled Immunization Date Status Commen ts Source Name Name FLUZONE HIGH DOSE FLUZONE HIGH DOSE 2022-01-04 Completed [facility] OVER 65 OVER 65 10:21:00 [facility] FLUZONE HIGH DOSE FLUZONE HIGH DOSE 2022-01-04 Completed [facility] OVER 65 OVER 65 10:21:00 [facility] FLUZONE HIGH DOSE FLUZONE HIGH DOSE 2022-01-04 Completed [facility] OVER 65 OVER 65 10:21:00 [facility] FLUZONE HIGH DOSE FLUZONE HIGH DOSE 2022-01-04 Completed [facility] OVER 65 OVER 65 10:21:00 [facility] FLUZONE HIGH DOSE FLUZONE HIGH DOSE 2022-01-04 Completed [facility] OVER 65 OVER 65 10:21:00 [facility] FLUZONE HIGH DOSE FLUZONE HIGH DOSE 2022-01-04 Completed [facility] OVER 65 OVER 65 10:21:00 [place] [id number] 2021-01-25 [facility] ([facility] Dose Vaccine (Low Dose 08:40:00 - [facility]oster[facility] [address] [facility] (Low Dose Vaccine (Low Dose 08:40:00 - [facility] Booster[facility] [address] [facility]-01-25 Com[facility] (Low Dose Vaccine (Low Dose 08:40:00 - [facility] [address] [facility]-25 [facility] (Low Dose Vaccine (Low Dose 08:40:00 - [facility] Booster) [facility] [address] COVID19 2021-01-25 Completed [facility] (Low Dose Vaccine (Low Dose 08:40:00 - [facility] Booster) Booster) [facility] [address] COVID19 2021-01-25 Completed [facility]ine (Low Dose Vaccine (Low Dose 08:40:00 - [facility] Booster) Booster) [facility] [address] COVID19 2021-01-25 Completed [facility]ine (Low Dose Vaccine (Low Dose 08:40:00 - [facility] Booster) Booster) [facility] [address] COVID19 2021-01-25 Completed [facility] (Low Dose Vaccine (Low Dose 08:40:00 - [facility] Booster) Booster) [facility] [address] COVID19 2021-01-25 Completed [facility] (Low Dose Vaccine (Low Dose 08:40:00 - [facility] Booster) Booster) [facility] [address] [facility] 2021-01-25 Com[facility]ine (Low Dose Vaccine (Low Dose 08:40:00 - [facility] Booster) Booster) [facility] [address] COVID19 2021-01-25 Completed [facility] Vaccine (Low Dose Vaccine (Low Dose 08:40:00 - [facility] Booster) Booster) [facility] [address] COVID19 2021-01-25 Completed [facility] Vaccine (Low Dose Vaccine (Low Dose 08:40:00 - [facility] Booster) Booster) [facility] [address] COVID19 2021-01-25 Completed [facility] Vaccine (Low Dose Vaccine (Low Dose 08:40:00 - [facility] Booster) Booster) [facility] [address] COVID19 2021-01-25 Completed [facility]ine (Low Dose Vaccine (Low Dose 08:40:00 - [facility] Booster) Booster) [facility] FLUZONE HIGH DOSE FLUZONE HIGH DOSE 2020-11-24 Completed [facility] OVER 65 OVER 65 09:39:00 - [facility] FLUZONE HIGH DOSE FLUZONE HIGH DOSE 2020-11-24 Completed [facility] OVER 65 OVER 65 09:39:00 - [facility] FLUZONE HIGH DOSE FLUZONE HIGH DOSE 2020-11-24 Completed [facility] OVER 65 OVER 65 09:39:00 - [facility] FLUZONE HIGH DOSE FLUZONE HIGH DOSE 2020-11-24 Completed [facility] OVER 65 OVER 65 09:39:00 - [facility] FLUZONE HIGH DOSE FLUZONE HIGH DOSE 2020-11-24 Completed [facility] OVER 65 OVER 65 09:39:00 - [facility] FLUZONE HIGH DOSE FLUZONE HIGH DOSE 2020-11-24 Completed [facility] OVER 65 OVER 65 09:39:00 - [facility] FLUZONE HIGH DOSE FLUZONE HIGH DOSE 2020-11-24 Completed [facility] OVER 65 OVER 65 09:39:00 - [facility] FLUZONE HIGH DOSE FLUZONE HIGH DOSE 2020-11-24 Completed [facility] OVER 65 OVER 65 09:39:00 - [facility] FLUZONE HIGH DOSE FLUZONE HIGH DOSE 2020-11-24 Completed [facility] OVER 65 OVER 65 09:39:00 - [facility] FLUZONE HIGH DOSE FLUZONE HIGH DOSE 2020-11-24 Completed [facility] OVER 65 OVER 65 09:39:00 - [facility] FLUZONE HIGH DOSE FLUZONE HIGH DOSE 2020-11-24 Completed [facility] OVER 65 OVER 65 09:39:00 - [facility] FLUZONE HIGH DOSE FLUZONE HIGH DOSE 2020-11-24 Completed [facility] OVER 65 OVER 65 09:39:00 - [facility] FLUZONE HIGH DOSE FLUZONE HIGH DOSE 2020-11-24 Completed [facility] OVER 65 OVER 65 09:39:00 - [facility] FLUZONE HIGH DOSE FLUZONE HIGH DOSE 2020-11-24 Completed [facility] OVER 65 OVER 65 09:39:00 - [facility] FLUZONE HIGH DOSE FLUZONE HIGH DOSE 2020-11-24 Completed [facility] OVER 65 OVER 65 09:39:00 - [facility] FLUZONE HIGH DOSE FLUZONE HIGH DOSE 2020-11-24 Completed [facility] OVER 65 OVER 65 09:39:00 - [facility] FLUZONE HIGH DOSE FLUZONE HIGH DOSE 2020-11-24 Completed [facility] OVER 65 OVER 65 09:39:00 - [facility] Moderna COVID-19 Moderna COVID-19 2020-04-27 Completed [facility] Vaccine 10:19:00 - [facility] Moderna COVID-19 Moderna COVID-19 2020-04-27 Completed [facility] Vaccine 10:19:00 - [facility] Moderna COVID-19 Moderna COVID-19 2020-04-27 Completed [facility] Vaccine Vaccine 10:19:00 - [facility] Moderna COVID-19 Moderna COVID-19 2020-04-27 Completed [facility] Vaccine 10:19:00 - [facility] Moderna COVID-19 Moderna COVID-19 2020-04-27 Completed [facility] Vaccine Vaccine 10:19:00 - [facility] Moderna COVID-19 Moderna COVID-19 2020-04-27 Completed [facility] Vaccine Vaccine 10:19:00 - [facility] Moderna COVID-19 Moderna COVID-19 2020-04-27 Completed [facility] Vaccine Vaccine 10:19:00 - [facility] Moderna COVID-19 Moderna COVID-19 2020-04-27 Completed [facility] Vaccine Vaccine 10:19:00 - [facility] Moderna COVID-19 Moderna COVID-19 2020-04-27 Completed [facility] Vaccine 10:19:00 - [facility] Moderna COVID-19 Moderna COVID-19 2020-04-27 Completed [facility] Vaccine Vaccine 10:19:00 - [facility] Moderna COVID-19 Moderna COVID-19 2020-04-27 Completed [facility] Vaccine Vaccine 10:19:00 - [facility] Moderna COVID-19 Moderna COVID-19 2020-04-27 Completed [facility] Vaccine 10:19:00 - [facility] Moderna COVID-19 Moderna COVID-19 2020-04-27 Completed [facility] Vaccine Vaccine 10:19:00 - [facility] Moderna COVID-19 Moderna COVID-19 2020-04-27 Completed [facility] Vaccine Vaccine 10:19:00 - [facility] Moderna COVID-19 Moderna COVID-19 2020-04-27 Completed [facility] Vaccine Vaccine 10:19:00 - [facility] Moderna COVID-19 Moderna COVID-19 2020-04-27 Completed [facility] Vaccine Vaccine 10:19:00 - [facility] Moderna COVID-19 Moderna COVID-19 2020-04-27 Completed [facility] Vaccine Vaccine 10:19:00 - [facility] Moderna COVID-19 Moderna COVID-19 2020-03-30 Completed [facility] Vaccine Vaccine 10:19:00 - [facility] Moderna COVID-19 Moderna COVID-19 2020-03-30 Completed [facility] Vaccine Vaccine 10:19:00 - [facility] Moderna COVID-19 Moderna COVID-19 2020-03-30 Completed [facility] Vaccine Vaccine 10:19:00 - [facility] Moderna COVID-19 Moderna COVID-19 2020-03-30 Completed [facility] Vaccine Vaccine 10:19:00 - [facility] Moderna COVID-19 Moderna COVID-19 2020-03-30 Completed [facility] Vaccine Vaccine 10:19:00 - [facility] Moderna COVID-19 Moderna COVID-19 2020-03-30 Completed [facility] Vaccine Vaccine 10:19:00 - [facility] Moderna COVID-19 Moderna COVID-19 2020-03-30 Completed [facility] Vaccine Vaccine 10:19:00 - [facility] Moderna COVID-19 Moderna COVID-19 2020-03-30 Completed [facility] Vaccine Vaccine 10:19:00 - [facility] Moderna COVID-19 Moderna COVID-19 2020-03-30 Completed [facility] Vaccine Vaccine 10:19:00 - [facility] Moderna COVID-19 Moderna COVID-19 2020-03-30 Completed [facility] Vaccine Vaccine 10:19:00 - [facility] Moderna COVID-19 Moderna COVID-19 2020-03-30 Completed [facility] Vaccine Vaccine 10:19:00 - [facility] Moderna COVID-19 Moderna COVID-19 2020-03-30 Completed [facility] Vaccine Vaccine 10:19:00 - [facility] Moderna COVID-19 Moderna COVID-19 2020-03-30 Completed [facility] Vaccine Vaccine 10:19:00 - [facility] Moderna COVID-19 Moderna COVID-19 2020-03-30 Completed [facility] Vaccine Vaccine 10:19:00 - [facility] Moderna COVID-19 Moderna COVID-19 2020-03-30 Completed [facility] Vaccine Vaccine 10:19:00 - [facility] Moderna COVID-19 Moderna COVID-19 2020-03-30 Completed [facility] Vaccine Vaccine 10:19:00 - [facility] Moderna COVID-19 Moderna COVID-19 2020-03-30 Completed [facility] Vaccine Vaccine 10:19:00 - [facility] FluAD FluAD 2019-11-20 Completed [facility] 09:54:00 - [facility] FluAD FluAD 2019-11-20 Completed [facility] 09[facility]54:00 - [facility] FluAD FluAD 2019-11-20 Completed [facility] 09:54:00 - [facility] FluAD FluAD 2019-11-20 Completed [facility] 09:54:00 - [facility] FluAD FluAD 2019-11-20 Completed [facility] 09:54:00 - [facility] FluAD FluAD 2019-11-20 Completed [facility] 09:54:00 - [facility] FluAD FluAD 2019-11-20 Completed [facility] 09:54:00 - [facility] FluAD FluAD 2019-11-20 Completed [facility] 09:54:00 - [facility] FluAD FluAD 2019-11-20 Completed [facility] 09:54:00 - [facility] FluAD FluAD 2019-11-20 Completed [facility] 09:54:00 - [facility] FluAD FluAD 2019-11-20 Completed [facility] 09:54:00 - [facility] FluAD FluAD 2019-11-20 Completed [facility] 09:54:00 - [facility] FluAD FluAD 2019-11-20 Completed [facility] 09:54:00 - [facility] FluAD FluAD 2019-11-20 Completed [facility] 09:54:00 - [facility] FluAD FluAD 2019-11-20 Completed [facility] 09[facility]54:00 - [facility] FluAD FluAD 2019-11-20 Completed [facility] 09:54:00 - [facility] FluAD FluAD 2019-11-20 Completed [facility] 09:54:00 - [facility] Pneumovax (PPSV23) Pneumovax (PPSV23) 2017-02-27 Completed [facility] 10:19:00 - [facility] Pneumovax (PPSV23) Pneumovax (PPSV23) 2017-02-27 Completed [facility] 10:19:00 - [facility] Pneumovax (PPSV23) Pneumovax (PPSV23) 2017-02-27 Completed [facility] 10:19:00 - [facility] Pneumovax (PPSV23) Pneumovax (PPSV23) 2017-02-27 Completed [facility] 10:19:00 - [facility] Pneumovax (PPSV23) Pneumovax (PPSV23) 2017-02-27 Completed [facility] 10:19:00 [facility] Pneumovax (PPSV23) Pneumovax (PPSV23) 2017-02-27 Completed [facility] 10:19:00 [facility] Pneumovax (PPSV23) Pneumovax (PPSV23) 2017-02-27 Completed [facility] 10:19:00 [facility] Pneumovax (PPSV23) Pneumovax (PPSV23) 2017-02-27 Completed [facility] 10:19:00 [facility] Pneumovax (PPSV23) Pneumovax (PPSV23) 2017-02-27 Completed [facility] 10:19:00 - [facility] Pneumovax (PPSV23) Pneumovax (PPSV23) 2017-02-27 Completed [facility] 10:19:00 - [facility] Pneumovax (PPSV23) Pneumovax (PPSV23) 2017-02-27 Completed [facility] 10:19:00 - [facility] Pneumovax (PPSV23) Pneumovax (PPSV23) 2017-02-27 Completed [facility] 10:19:00 - [facility] Pneumovax (PPSV23) Pneumovax (PPSV23) 2017-02-27 Completed [facility] 10:19:00 - [facility] Pneumovax (PPSV23) Pneumovax (PPSV23) 2017-02-27 Completed [facility] 10:19:00 - [facility] Pneumovax (PPSV23) Pneumovax (PPSV23) 2017-02-27 Completed [facility] 10:19:00 - [facility] Pneumovax (PPSV23) Pneumovax (PPSV23) 2017-02-27 Completed [facility] 10:19:00 [facility] Pneumovax (PPSV23) Pneumovax (PPSV23) 2017-02-27 Completed [facility] 10:19:00 [facility] Vital Signs Vital Name Observation Time Observation Value Comments Source Systolic blood 2022-02-07 22:12:00 165 mm[Hg] [facility] Diastolic blood 2022-02-07 22:12:00 70 mm[Hg] [facility] Heart rate 2022-02-07 22:11:00 75 /min [facility] Body height 2022-02-07 22:11:00 198.1 cm [facility] Body weight 2022-02-07 22:11:00 166.924 kg [facility] BMI 2022-02-07 22:11:00 42.53 kg/m2 [facility] height 2022-01-19 13:30:00 77.5 [in_i] [facility] weight 2022-01-19 13:30:00 366.2 [lb_av] Common [facility] temperature 2022-01-19 13:30:00 97.2 [degF] Common [facility] bmi 2022-01-19 13:30:00 42.86 kg/m2 Common [facility] oximetry 2022-01-19 13:30:00 98 % Common [facility] respiratory rate 2022-01-19 13:30:00 18 /min Comm on [facility] blood pressure 2022-01-19 13:30:00 138 mm[Hg] Common [facility] - systolic [facility] blood pressure 2022-01-19 13:30:00 70 mm[Hg] Common [facility] - diastolic [facility] height 2022-01-04 10:00:00 77.5 [in_i] Common [facility] weight 2022-01-04 10:00:00 365.3 [lb_av] [facility] temperature 2022-01-04 10:00:00 97.9 [degF] Common [facility] bmi 2022-01-04 10:00:00 42.76 kg/m2 [facility] oximetry 2022-01-04 10:00:00 98 % Common [facility] respiratory rate 2022-01-04 10:00:00 18 /min Comm on [facility] blood pressure 2022-01-04 10:00:00 137 mm[Hg] Common [facility] - systolic [facility] blood pressure 2022-01-04 10:00:00 81 mm[Hg] Common [facility] - diastolic [facility] Systolic blood 2021-11-11 18:30:00 144 mm[Hg] [facility] pressure Medicine Diastolic blood 2021-11-11 18:30:00 66 mm[Hg] [facility] pressure Medicine Heart rate 2021-11-11 18:25:00 63 /min [facility] height 2021-11-11 18:25:[address] [facility] weight 2021-11-11 18:25:[address] [facility] BMI 2021-11-11 18:25:00 41.23 kg/m2 [facility] height 2021-11-04 10:30:00 77.5 [in_i] Common [facility] weight 2021-11-04 10:30:00 365 [lb_av] Common [facility] temperature 2021-11-04 10:30:00 97.3 [degF] Common [facility] bmi 2021-11-04 10:30:00 42.72 kg/m2 [facility] oximetry 2021-11-04 10:30:00 94 % [facility] respiratory rate 2021-11-04 10:30:00 18 /min Comm on [facility] blood pressure 2021-11-04 10:30:00 122 mm[Hg] [facility] blood pressure 2021-11-04 10:30:00 76 mm[Hg] Common [facility] - diastolic [facility] height 2021-11-04 10:40:00 77.5 [in_i] Common [facility] weight 2021-11-04 10:40:00 365 [lb_av] Common [facility] temperature 2021-11-04 10:40:00 97.3 [degF] Common [facility] bmi 2021-11-04 10:40:00 42.72 kg/m2 [facility] oximetry 2021-11-04 10:40:00 94 % Common [facility] respiratory rate 2021-11-04 10:40:00 18 /min Comm on [facility] blood pressure 2021-11-04 10:40:00 122 mm[Hg] Common [facility] - systolic [facility] blood pressure 2021-11-04 10:40:00 76 mm[Hg] Common [facility] - diastolic [facility] height 2021-10-04 09:50:00 80 [in_i] [facility] weight 2021-10-04 09:50:00 365.0 [lb_av] [facility] temperature 2021-10-04 09:50:00 96.9 [degF] [facility] bmi 2021-10-04 09:50:00 40.09 kg/m2 [facility] oximetry 2021-10-04 09:50:00 97 % [facility] respiratory rate 2021-10-04 09:50:00 18 /min Comm on [facility] blood pressure 2021-10-04 09:50:00 139 mm[Hg] Common [facility] - systolic [facility] blood pressure 2021-10-04 09:50:00 63 mm[Hg] [facility] - diastolic [facility] HEIGHT 2021-09-29 08:12:00 203.2 cm WEIGHT [...] kg Systolic blood 2021-09-23 18:09:00 142 mm[Hg] [facility] Medicine Diastolic blood 2021-09-23 18:09:00 70 mm[Hg] [facility] Heart rate 2021-09-23 18:08:00 60 /min [facility] Body height 2021-09-23 18:08:00 203.2 cm [facility] Body weight 2021-09-23 18:08:00 167.831 kg [facility] BMI 2021-09-23 18:08:00 40.65 kg/m2 [facility] height 2021-08-31 11:20:00 80 [in_i] Common [facility] weight 2021-08-31 11:20:00 371.2 [lb_av] [facility] temperature 2021-08-31 11:20:00 97.9 [degF] [facility] bmi 2021-08-31 11:20:00 40.77 kg/m2 [facility] oximetry 2021-08-31 11:20:00 97 % [facility] respiratory rate 2021-08-31 11:20:00 17 /min Comm on [facility] blood pressure 2021-08-31 11:20:00 132 mm[Hg] Common [facility] - systolic [facility] blood pressure 2021-08-31 11:20:00 75 mm[Hg] Common [facility] - diastolic [facility] height 2021-05-17 09:20:00 80 [in_i] Common [facility] weight 2021-05-17 09:20:00 371.5 [lb_av] [facility] temperature 2021-05-17 09:20:00 97.8 [degF] Common [facility] bmi 2021-05-17 09:20:00 40.81 kg/m2 [facility] oximetry 2021-05-17 09:20:00 98 % Common [facility] respiratory rate 2021-05-17 09:20:00 19 /min Comm on [facility] blood pressure 2021-05-17 09:20:00 138 mm[Hg] [facility] blood pressure 2021-05-17 09:20:00 68 mm[Hg] [facility] height 2021-02-16 08:50:00 80 [in_i] Common [facility] weight 2021-02-16 08:50:00 378.3 [lb_av] Common [facility] temperature 2021-02-16 08:50:00 97.7 [degF] Common [facility] bmi 2021-02-16 08:50:00 41.55 kg/m2 Common [facility] oximetry 2021-02-16 08:50:00 97 % Common [facility] respiratory rate 2021-02-16 08:50:00 18 /min Comm on [facility] blood pressure 2021-02-16 08:50:00 133 mm[Hg] Common [facility] - systolic [facility] blood pressure 2021-02-16 08:50:00 65 mm[Hg] Common [facility] - diastolic [facility] height 2020-11-24 08:40:00 80 [in_i] Common [facility] weight 2020-11-24 08:40:00 372.8 [lb_av] Common [facility] temperature 2020-11-24 08:40:00 96.8 [degF] [facility] bmi 2020-11-24 08:40:00 40.95 kg/m2 Common [facility] oximetry 2020-11-24 08:40:00 96 % Common [facility] respiratory rate 2020-11-24 08:40:00 20 /min Comm on [facility] blood pressure 2020-11-24 08:40:00 138 mm[Hg] Common [facility] - systolic [facility] blood pressure 2020-11-24 08:40:00 82 mm[Hg] Common [facility] - diastolic [facility] height 2020-11-24 09:00:00 80 [in_i] [facility] weight 2020-11-24 09:00:00 372.8 [lb_av] [facility] temperature 2020-11-24 09:00:00 96.8 [degF] [facility] bmi 2020-11-24 09:00:00 40.95 kg/m2 [facility] oximetry 2020-11-24 09:00:00 96 % [facility] respiratory rate 2020-11-24 09:00:00 20 /min Comm on [facility] blood pressure 2020-11-24 09:00:00 138 mm[Hg] [facility] - systolic [facility] blood pressure 2020-11-24 09:00:00 82 mm[Hg] [facility] - diastolic [facility] Heart rate 2021-09-30 12:01:00 92 /min [facility] Systolic blood 2021-09-30 12:00:00 153 mm[Hg] [facility] Diastolic blood 2021-09-30 12:00:00 68 mm[Hg] [facility] Body temperature 2021-09-30 12:00:00 36.17 Saumya [facility] Respiratory rate 2021-09-30 12:00:00 17 /min [facility] Oxygen saturation in 2021-09-30 12:00:00 95 /min [facility] Arterial blood by Medical Ce nter Pulse oximetry Body height 2021-09-29 08:12:00 203.2 cm [facility] Body weight 2021-09-29 08:12:00 167.831 kg [facility] BMI 2021-09-29 08:12:00 40.65 kg/m2 [facility] Systolic (mm Hg) 2021-06-15 15:07:00 Car rial Juancho Diastolic (mm Hg) 2021-06-15 15:07:00 Mem orial [place] Heart Rate 2021-06-15 15:07:00 Kylie Dawkins Respitory Rate 2021-06-15 15:07:00 Rigoberto Sutton Height 2021-06-15 15:07:00 203.2 cm Kylie Dawkins Weight 2021-06-15 15:07:00 Kylie Dawkins BMI Calculated 2021-06-15 15:07:00 Rigoberto Uriarteann Procedures Procedure Date / Time Performing Clinician Source Performed ELECTROCARDIOGRAM COMPLETE 2022-02-07 22:51:19 Lilian Deleon [facility] ELECTROCARDIOGRAM COMPLETE 2022-02-07 16:51:19 B [facility] ELECTROCARDIOGRAM COMPLETE 2021-11-11 19:02:02 Lilian Deleon [facility] ELECTROCARDIOGRAM COMPLETE 2021-11-11 14:02:02 B [facility] 2D ECHO W/ DOPPLER 2021-09-30 09:27:27 Lilian Deleon [facility] (CW/PW/COLOR) [facility] POCT-GLUCOSE METER 2021-09-30 06:55:00 Lilian Deleon [facility] XR CHEST 1 VIEW PORTABLE / 2021-09-30 05:37:00 Joseph Rodriguez [facility] BASIC METABOLIC PANEL 2021-09-30 04:22:00 Joseph Rodriguez [facility] CBC (HEMOGRAM ONLY) 2021-09-30 04:22:00 Joseph Rodriguez [facility] ECG 12-LEAD 2021-09-30 03:41:43 Joseph Rodriguez [facility] POCT-GLUCOSE METER 2021-09-29 20:57:00 Lilian Deleon [facility] POCT-ACT 2021-09-29 16:03:00 Lilian Deleon [facility] POCT-GLUCOSE METER 2021-09-29 16:00:00 Lilian Deleon [facility] ECG 12-LEAD 2021-09-29 15:42:23 Unknown, Hl7 [facility] ECG 12-LEAD 2021-09-29 15:42:23 Yum, Joseph [facility] ECG 12-LEAD 2021-09-29 15:42:23 Unknown, Hl7 Doctor [facility] PREPARE RBC 2021-09-29 15:30:00 Lilian Deleon [facility] POCT-ACT 2021-09-29 15:00:00 Lilian Deleon [facility] POCT-ACT 2021-09-29 14:01:00 Lilian Deleon [facility] IMPLANTATION, AORTIC VALVE, 2021-09-29 11:28:00 Lilian Deleon [facility] TRANSCATHETER [facility] TRANSESOPHAGEAL ECHO 2021-09-29 10:44:47 Lilian Deleon [facility] CONT WAVE PULSED DOPPLER 2021-09-29 10:23:49 Lilian Deleon [facility] COLOR-FLOW MAPPING 2021-09-29 10:23:48 Lilian Deleon [facility] ABORH, MANUAL 2021-09-29 09:00:00 Lilian Deleon [facility] CARDIAC CATH REPORT - SCAN 2021-09-29 00:00:00 ProviderEdis [facility] ELECTROCARDIOGRAM COMPLETE 2021-09-23 19:54:26 Lilian Deleon [facility] CBC W/PLT COUNT & AUTO 2021-09-23 15:11:[address] [facility] COMPREHENSIVE METABOLIC 2021-09-23 15:11:[address] [facility] PANEL [facility] B-TYPE NATRIURETIC FACTOR 2021-09-23 15:11:00 Lilian Deleon CH, I [facility] (BNP) [facility] PROTHROMBIN TIME/INR 2021-09-23 15:11:00 Lilian Deleon [facility] TYPE AND SCREEN, AUTOMATED 2021-09-23 15:11:00 Lilian Deleon [facility] CBC W/PLT COUNT & AUTO 2021-09-23 15:11:00 Lilian Deleon [facility] ELECTROCARDIOGRAM COMPLETE 2021-09-23 14:54:26 B [facility] ([facility]) HEART CATH 2021-09-23 09:58:37 [facility] 2021-09-23 09:58:37 [facility] ([facility]) DIAG \T\ IMAGING 2021-09-23 09:58:37 [facility] ([facility]) EKG 2021-09-23 09:58:37 [facility] ([facility]) CT CHEST/CARDIAC 2021-09-23 09:58:37 [facility] ([facility]) US/DOPPLER HEAD/NECK 2021-09-23 09:58:37 B [facility] Plan of Care Planned Activity Planned Date Details Comments Source Future Scheduled 2022-09-[address] [facility] Test 00:00:00 [facility] r Screening (12+) [code = Tobacco Cessation Counseling and Screening (12+)] Future Scheduled 2022-02-07 Screening for malignant [facility] 19:20:09 neoplasm of colon Medicine (procedure) [code = 405470586] Future Scheduled 2022-02-07 Pneumococcal 65+ (1 - Ba [facility] Test 19:20:09 PCV) [code = Medicine Pneumococcal 65+ (1 - PCV)] Future Scheduled 2022-02-07 TETANUS SHOT (ADULT) [facility] Test 19:20:09 [code = TETANUS SHOT Medicin e (ADULT)] Future Scheduled 2022-02-07 Diabetic foot [facility] Test 19:20:09 examination Medicine (regime/therapy) [code = 130672716] Future Scheduled 2022-02-07 ANNUAL DIABETIC [facility] Test 19:20:09 RETINOPATHY SCREENING Medici ne [code = ANNUAL DIABETIC RETINOPATHY SCREENING] Future Scheduled 2022-02-07 BMI FOLLOW UP PLAN [facility] 19:20:09 [code = BMI FOLLOW UP Medici ne PLAN] Future Scheduled 2022-02-07 Hepatitis C screening [facility] 19:20:09 (procedure) [code = Medicine [id number]] Future Scheduled 2022-02-07 ZOSTER VACCINE (1 of 2) [employer] [facility] Test 19:20:09 [code = ZOSTER VACCINE Medic ine (1 of 2)] Future Scheduled 2022-02-07 FALL SCREEN [code = [facility] of Test 19:20:09 FALL SCREEN] Medicine Future Scheduled 2022-02-07 COVID-19 Vaccine (4 - Ba [facility] of Test 19:20:09 Booster for Moderna Medicine series) [code = COVID-19 Vaccine (4 - Booster for Moderna series)] Future Scheduled 2022-02-07 FLU VACCINE > 6 MONTHS B [facility] Test 19:20:09 [code = FLU VACCINE > 6 Medi cine MONTHS] Future Scheduled 2022-02-07 MEDICARE AWV (Initial) [facility] Test 19:20:09 [code = MEDICARE AWV Medicin e (Initial)] Future Scheduled 2021-11-11 Screening for malignant [facility] of Test 15:50:24 neoplasm of colon Medicine (procedure) [code = 398319125] Future Scheduled 2021-11-11 COVID-19 Vaccine (#1) [facility] Test 15:50:24 [code = COVID-19 Medicine Vaccine (#1)] Future Scheduled 2021-11-11 Pneumococcal 65+ (1 - Ba [facility] Test 15:50:24 PCV) [code = Medicine Pneumococcal 65+ (1 - PCV)] Future Scheduled 2021-11-11 TETANUS SHOT (ADULT) [facility] of Test 15:50:24 [code = TETANUS SHOT Medicin e (ADULT)] Future Scheduled 2021-11-11 Diabetic foot [facility] Test 15:50:24 examination Medicine (regime/therapy) [code = 710113596] Future Scheduled 2021-11-11 ANNUAL DIABETIC [facility] Test 15:50:24 RETINOPATHY SCREENING Medici ne [code = ANNUAL DIABETIC RETINOPATHY SCREENING] Future Scheduled 2021-11-11 BMI FOLLOW UP PLAN [facility] of Test 15:50:24 [code = BMI FOLLOW UP Medici ne PLAN] Future Scheduled 2021-11-11 Hepatitis C screening [facility] of Test 15:50:24 (procedure) [code = Medicine [id number]] Future Scheduled 2021-11-11 ZOSTER VACCINE (1 of 2) [facility] of Test 15:50:24 [code = ZOSTER VACCINE Medic ine (1 of 2)] Future Scheduled 2021-11-11 MEDICARE AWV (Initial) B [facility] Test 15:50:24 [code = MEDICARE AWV Medicin e (Initial)] Future Scheduled 2021-11-11 FALL SCREEN [code = [facility] of Test 15:50:24 FALL SCREEN] Medicine Future Scheduled 2021-11-11 FLU VACCINE > 6 MONTHS B [facility] Test 15:50:24 [code = FLU VACCINE > 6 Medi cine MONTHS] Future Scheduled 2021-10-28 INFLUENZA VACCINE (#1) [facility]00 [code = INFLUENZA Medical Ce nter VACCINE (#1)] Future Scheduled 2021-10-28 INFLUENZA VACCINE (#1) [facility] 00:00:00 [code = INFLUENZA Medical Ce nter VACCINE (#1)] Future Scheduled 2021-09-[address] [facility] [address] [facility] 00:[facility]00 measurement (procedure) [facility] [code = 61064943] Future Scheduled 2021-09-[address] [facility] 00:00:00 measurement (procedure) [facility] [code = 41386268] Future Scheduled 2021-09-23 Screening for malignant [facility] of Test 17:50:20 neoplasm of colon Medicine (procedure) [code = 142297895] Future Scheduled 2021-09-23 Pneumococcal 65+ (1 - Ba [facility] of Test 17:50:20 PCV) [code = Medicine Pneumococcal 65+ (1 - PCV)] Future Scheduled 2021-09-23 TETANUS SHOT (ADULT) [facility] Test 17:50:20 [code = TETANUS SHOT Medicin e (ADULT)] Future Scheduled 2021-09-23 Diabetic foot [facility] Test 17:50:20 examination Medicine (regime/therapy) [code = 812691677] Future Scheduled 2021-09-23 ANNUAL DIABETIC [facility] Test 17:50:20 RETINOPATHY SCREENING Medici ne [code = ANNUAL DIABETIC RETINOPATHY SCREENING] Future Scheduled 2021-09-23 BMI FOLLOW UP PLAN [facility] of Test 17:50:20 [code = BMI FOLLOW UP Medici ne PLAN] Future Scheduled 2021-09-23 Hepatitis C screening [facility] of Test 17:50:20 (procedure) [code = Medicine [id number]] Future Scheduled 2021-09-23 ZOSTER VACCINE (1 of 2) [facility] Test 17:50:20 [code = ZOSTER VACCINE Medic ine (1 of 2)] Future Scheduled 2021-09-23 FALL SCREEN [code = [facility] Test 17:50:20 FALL SCREEN] Medicine Future Scheduled 2021-09-23 COVID-19 Vaccine (4 - Ba [facility] Test 17:50:20 Booster for Moderna Medicine series) [code = COVID-19 Vaccine (4 - Booster for Moderna series)] Future Scheduled 2021-09-23 FLU VACCINE > 6 MONTHS B [facility] Test 17:50:20 [code = FLU VACCINE > 6 Medi cine MONTHS] Future Scheduled 2021-09-23 MEDICARE AWV (Initial) B [facility] Test 17:50:20 [code = MEDICARE AWV Medicin e (Initial)] Future Scheduled 2021-05-25 COVID-19 VACCINE (4 - [facility] Booster for Moderna [facility] series) [code = COVID-19 VACCINE (4 - Booster for Moderna series)] Future Scheduled 2021-05-25 COVID-19 VACCINE (4 - [facility] 00:00:00 Booster for Moderna Medical Center series) [code = COVID-19 VACCINE (4 - Booster for Moderna series)] Future Scheduled 2018-02-27 PNEUMOCOCCAL 65+ YRS ([address] [facility] Test 00:00:00 - PCV) [code = Medical Cente r PNEUMOCOCCAL 65+ YRS (2 - PCV)] Future Scheduled 2018-02-27 PNEUMOCOCCAL 65+ YRS ([address] [facility] Test 00:00:00 - PCV) [code = Medical Cente r PNEUMOCOCCAL 65+ YRS (2 - PCV)] Future Scheduled 2013-01-[address] [facility] 00:00:00 WELLNESS (YEAR 2 or Medical Center FIRST YEAR if no IPPE) [code = MEDICARE ANNUAL WELLNESS (YEAR 2 or FIRST YEAR if no IPPE)] Future Scheduled 2013-01-[address] [facility] 00:00:00 WELLNESS (YEAR 2 or Medical Center FIRST YEAR if no IPPE) [code = MEDICARE ANNUAL WELLNESS (YEAR 2 or FIRST YEAR if no IPPE)] Future Scheduled 2012-02-[address] [facility] Test 00:00:00 aneurysm screening Medical C enter (procedure) [code = 874875759] Future Scheduled 2012-02-[address] [facility] Test 00:00:00 aneurysm screening Medical C enter (procedure) [code = 158353857] Future Scheduled 1997 SHINGLES VACCINES ([address] [facility] 00[facility]00:00 [facility] Future Scheduled 1997 SHINGLES VACCINES ([address] [facility] Test 00:00:00 2) [code = SHINGLES [facility] VACCINES (1 of 2)] Future Scheduled 1966 DTAP/TDAP/TD VACCINES [facility] 00:00:00 (1 - Tdap) [code = Medical C enter DTAP/TDAP/TD VACCINES (1 - Tdap)] Future Scheduled 1966 DTAP/TDAP/TD VACCINES [facility] 00:00:00 (1 - Tdap) [code = Medical C enter DTAP/TDAP/TD VACCINES (1 - Tdap)] Future Scheduled 1965 HEPATITIS C SCREENING [facility] 00:00:00 [code = HEPATITIS C Medical Center SCREENING] Future Scheduled 1965 HEPATITIS C [facility]CRE[facility]ING [facility] 00:00:00 [code = HEPATITIS C Medical Center SCREENING] Future Scheduled 1957 DIABETIC EYE EXAM [code [facility] 00:00:00 = DIABETIC EYE EXAM] Medical Center Future Scheduled [address] [facility] examination Medical Center (regime/therapy) [code = 825938096] Future Scheduled 1957 Urine screening for [facility] 00:00:00 protein (procedure) Medical Center [code = 103514484] Future Scheduled 1957 DIABETIC EYE EXAM [code [facility] 00:00:00 = DIABETIC EYE EXAM] Medical Center Future Scheduled [address] [facility] 00:[facility]:00 examination Medical Center (regime/therapy) [code = 462721249] Future Scheduled 1957 Urine screening for [facility] 00:00:00 protein (procedure) Medical Center [code = 689995448] Future Scheduled 1947 CT Colonography (combo) [facility] Test 00:00:00 [code = CT Colonography [facility] (combo)] Future Scheduled 1947 Screening for malignant [facility] Test 00:00:00 neoplasm of colon Medical Ce nter (procedure) [code = 461685911] Future Scheduled 1947 Screening for malignant [facility] Test 00:00:00 neoplasm of colon Medical Ce nter (procedure) [code = 657932709] Future Scheduled 1947 Screening for malignant [facility] Test 00:00:00 neoplasm of colon Medical Ce nter (procedure) [code = 068108371] Future Scheduled 1947 Screening for malignant [facility] Test 00:00:00 neoplasm of colon Medical Ce nter (procedure) [code = 015990968] Future Scheduled 1947 Sigmoidoscopy [code = [facility] S[facility]oidoscopy] Medical Cente r Future Scheduled 1947 CT Colonography (combo) [facility] 00:00:00 [code = CT Colonography [facility] (combo)] Future Scheduled 1947 Screening for malignant [facility] Test 00:00:00 neoplasm of colon Medical Ce nter (procedure) [code = 924218399] Future Scheduled 1947 Screening for malignant [facility] Test 00:00:00 neoplasm of colon Medical Ce nter (procedure) [code = 364770745] Future Scheduled 1947 Screening for malignant [facility] Test 00:00:00 neoplasm of colon Medical Ce nter (procedure) [code = 892106460] Future Scheduled 1947 Screening for malignant [facility] Test 00:00:00 neoplasm of colon Medical Ce nter (procedure) [code = 176981695] Future Scheduled 1947 Sigmoidoscopy [code = [facility] Sigmoidoscopy] Medical Cente r Encounters Start End Encounter Admission Attending Care Care Encounter Source Date/Time Date/Time Type Type Clinicians Facility Department ID 2022-01-18 Outpatient Diaz, STLMLC STLMLC [id number] Common 08:51:01 Aynn [facility] 2021-12-31 Outpatient Diaz, STLMLC STLMLC [id number] Common 10:27:01 Yann [facility] 2021-05-17 Outpatient Diaz, STLMLC STLMLC [id number] Common 09:00:01 Yann [facility] 2021-05-14 Outpatient Diaz, STLMLC STLMLC [id number] Common 10:41:02 Yann [facility] 2021-03-24 Outpatient Diaz, STLMLC STLMLC [id number] Common 14:26:44 Yann [facility] 2021-03-24 Outpatient Diaz, STLMLC STLMLC [id number] Common 13:19:52 Yann [id number] [facility] 2021-03-24 Outpatient Diaz, STLMLC STLMLC [id number] Common 13:09:16 Yann [id number] [facility] 2021-03-24 Outpatient Diaz, STLMLC STLMLC [id number] Common 12:43:25 Yann [facility] 2021-03-24 Outpatient Diaz, STLMLC STLMLC [id number] Common 12:42:35 Yann [facility] 2021-03-24 Outpatient Diaz, STLMLC STLMLC [id number] Common 12:42:21 Yann [id number] [facility] 2021-03-24 Outpatient Diaz, STLMLC STLMLC [id number] Common 11:17:23 Yann [id number] [facility] 2021-03-24 Outpatient Diaz, STLMLC STLMLC [id number] Common 11:15:43 Yann [facility] 2021-03-24 Outpatient Diaz, STLMLC STLMLC [id number] Common 11:15:21 Yann [address]60 [facility] 2021-03-24 Outpatient Diaz, STLMLC STLMLC [id number] Common 11:00:50 [facility] [address] [facility] 2022-06-15 2022-06-15 Outpatient MHIE IE [id number] [facility] 10:00:00 10:00:00 07 david Dawkins 2022-06-15 2022-06-15 Outpatient MHIE MHIE [id number] [facility] 10:00:00 10:00:00 07 david Walden 2022-02-07 2022-02-07 Outpatient [facility] [id number] [facility] 14:12:11 16:19:18 [facility] 2022-02-07 2022-02-07 Office JUSTUS TAYLOR [id number] [facility] 14:10:38 14:10:38 Visit LILIAN AMBULATOR 350.1.13.21 College Y 0.2.7.2.686 of [id number] Medi darrin 300 e 2022-02-03 2022-02-03 (TEL) STLMLC STLMLC [id number] Co mmon 00:00:00 00:00:00 [facility] 2022-02-01 2022-02-01 (TEL) STLMLC STLMLC [id number] Co mmon 00:00:00 00:00:00 [facility] 2022-01-19 2022-01-19 (HOSP F/U) STLMLC STLMLC [id number] Common 00:00:00 00:00:00 [facility] 2022-01-17 2022-01-17 (TEL) STLMLC STLMLC [id number] Co mmon 00:00:00 00:00:00 [facility] 2022-01-10 2022-01-10 (TEL) STLMLC STLMLC [id number] Co mmon 00:00:00 00:00:00 [facility] 2022-01-04 2022-01-04 OFFICE STLMLC STLMLC [id number] Co mmon 00:00:00 00:00:00 VISIT [facility] LEVEL 4 [facility] 2021-11-11 2021-11-11 Office TAYLOR DELEON [id number] [facility] 12:31:35 15:46:52 Visit LILIAN AMBULATOR 350.1.13.21 College Y 0.2.7.2.686 of [id number] Medi darrin 300 e 2021-11-11 2021-11-11 Outpatient BCM [facility] [id number] [facility] 14:33:38 15:42:54 [facility] 2021-11-11 2021-11-11 Outpatient BCM [facility] [id number] [facility] 12:31:21 15:01:28 [facility] 2021-11-04 2021-11-04 [facility] [id number] Co mmon 00:00:00 00:00:00 VISIT Ronak MCALLISTER PT - CHI LEVEL 4 [facility] 2021-11-04 2021-11-04 SUB ANNUAL [facility] [id number] Common 00:00:00 00:00:00 [facility] Ronak WELLNESS - CHI VISIT [facility] 2021-10-26 2021-10-26 Telephone [place], [facility] [id number] [address] 00:[facility] 00[facility]00[facility]00 [facility] 2021-10-26 2021-10-26 Telephone Antonino, [facility] [id number] [facility] [address] 00:00[facility]00 00:00:00 [facility] 2021-10-11 2021-10-[address] [facility] [id number] 00:00[facility]00 00:00:00 [facility] 2021-10-11 2021-10-[address] [facility] [id number] 00:00[facility]00 00:00:00 [facility] 2021-10-04 2021-10-04 (HOSP F/U) [facility] [id number] Common 00:00:00 00:00:00 Hospital Spiri t Follow Up - [facility] 2021-10-01 2021-10-01 Outpatient BCM BC [id number] [facility] 10:35:39 11:01:49 [facility] 2021-10-01 2021-10-01 (TEL) [facility] [id number] Co mmon 00:00:00 00:00:00 Spirit - [facility] 2021-09-30 2021-09-30 Outpatient BCM BC [id number] [facility] 00:00:00 23:59:00 [facility] 2021-09-29 2021-09-30 [facility] [id number] 08:04:00 13:30:00 Encounter [facility] 2021-09-29 2021-09-30 [facility] [id number] 08:04:00 13:30:00 Encounter [facility] 2021-09-29 2021-09-30 Inpatient [facility] Surgery [id number] [facility] 08:04:00 13:30:00 [facility] 2021-09-29 2021-09-29 Outpatient BCM BC [id number] [facility] 08:04:00 23:59:00 [facility] 2021-09-29 2021-09-29 Surgery [facility] [id number] 12:28:00 16:43:00 [facility] 2021-09-29 2021-09-29 Surgery [facility] [id number] 12:28:00 16:43:00 [facility] 2021-09-29 2021-09-29 Anesthesia Ally, [facility] [id number] 11:41:00 15:31:00 Event [facility] 2021-09-29 2021-09-[address] [facility] [id number] 11:41:00 15:31:00 Event [facility] 2021-09-29 2021-09-29 Travel [facility] [id number] [facility] 00:[facility]00 00:00:00 [facility] 2021-09-29 2021-09-29 Travel [facility] [id number] [facility] 00:[facility]:00 00:00:00 [facility] 2021-09-23 2021-09-24 Outpatient [facility] [id number] [facility] 16:04:57 08:01:49 [facility] 2021-09-23 2021-09-[address] [facility] [id number] 15:00:00 15:30:00 Visit [facility] 2021-09-23 2021-09-[address] [facility] [id number] 15:00:00 15:30:00 Visit [facility] 2021-09-23 2021-09-23 Outpatient VALDEMAR KILLIAN [facility] [id number] [facility] 15:05:44 15:05:44 KARTIK 2021-09-23 2021-09-23 Office TAYLOR DELEON [id number] [id number] [facility] 09:58:37 14:43:11 Visit LILIAN AMBULATOR 350.1.13.21 College Y 0.2.7.2.686 of [id number] Medi darrin 300 e 2021-09-23 2021-09-23 [facility] [id number] [facility] 09:58:28 14:42:29 [facility] 2021-09-23 2021-09-23 [facility] [id number] [facility] 09:53:54 13:13:16 [facility] 2021-09-23 2021-09-23 [id number] 00:00[facility]00 00:00:[address] [facility] 2021-09-23 2021-09-23 [facility] [id number] 00:00:00 00:00:[address] [facility] 2021-08-31 2021-08-31 OFFICE STLMLC STLMLC [id number] Co mmon 00:00:00 00:00:00 VISIT Ronak ESTAB PT - CHI LEVEL 4 [facility] 2021-08-24 2021-08-24 Outpatient LUIS VictorCL [id number] [facility] 09:27:00 09:27:00 Olclotilde [id number] [facility] 2021-08-24 2021-08-24 Outpatient LUIS Victor [facility] [id number] [facility] 09:27:00 09:27:00 Olanike 01 [facility] 2021-08-16 2021-08-16 (TEL) STLMLC STLMLC [id number] Co mmon 00:00:00 00:00:00 [facility] 2021-06-15 2021-06-16 Outpatient nullFlavo MNA [id number] [facility] 15:30:00 04:59:59 r Neurology 06 l Brooks Dawkins 2021-06-15 2021-06-16 Outpatient nullFlavo MNA [id number] [facility] 15:30:00 04:59:59 r Neurology 06 l Brooks Dawkins 2021-06-15 2021-06-15 Outpatient ANGELICA ParedesSCHSUMAYA MHMISCHER [id number] 10:30:00 23:59:59 Sam 06 Dennis 2021-06-15 2021-06-15 Outpatient MHIE MHIE [id number] [facility] 10:30:00 10:30:00 06 david Dawkins 2021-05-17 2021-05-17 OFFICE STLMLC STLMLC [id number] Co mmon 00:00:00 00:00:00 VISIT Spirit ESTAB PT - CHI LEVEL 4 [facility] 2021-02-16 2021-02-16 OFFICE STLMLC STLMLC [id number] Co mmon 00:00:00 00:00:00 VISIT Spirit ESTAB PT - CHI LEVEL 4 [facility] 2020-12-15 2020-12-15 (TEL) STLMLC STLMLC [id number] Co mmon 00:00:00 00:00:00 Spirit - [facility] 2020-11-24 2020-11-24 OFFICE STLMLC STLMLC [id number] Co mmon 00:00:00 00:00:00 VISIT Spirit ESTAB PT - CHI LEVEL 4 [facility] 2020-11-24 2020-11-24 SUB ANNUAL STLMLC STLMLC [id number] Common 00:00:00 00:00:00 MCR Spirit WELLNESS - CHI VISIT [facility] 2020-10-27 2020-10-27 Outpatient STLMLC STLMLC [id number] Common 00:00:00 00:00:00 Spirit - [facility] 2020-09-23 2020-09-23 Outpatient STLMLC STLMLC [id number] Common 00:00:00 00:00:00 [facility] 2020-09-17 2020-09-17 Outpatient STLMLC STLMLC [id number] Common 00:00:00 00:00:00 [facility] - [facility] 2020-08-25 2020-08-25 Outpatient STLMLC STLMLC [id number] Common 00:00:00 00:00:00 Spirit - [facility] 2020-06-24 2020-06-26 Outside nullFlavo MNA [id number] [facility] 13:59:45 04:59:59 Medical r Neurology 00 l Records Brooks Dawkins 2020-06-24 2020-06-26 Outside nullFlavo MNA [id number] [facility] 13:59:45 04:59:59 Medical r Neurology 00 l Records Brooks Deshpandeann 2020-06-24 2020-06-25 Outpatient MHMISCHER MHMISCHER [id number] 08:59:45 23:59:59 00 2020-06-12 2020-06-13 Outpatient nullFlavo MNA [id number] [facility] 15:30:00 04:59:59 r Neurology 05 l [place] Deshpandeann 2020-06-12 2020-06-13 Outpatient nullFlavo MNA [id number] [facility] 15:30:00 04:59:59 r Neurology 05 l [place] Deshp[place] 2020-06-12 2020-06-12 Outpatient ANGELICA ParedesSCHSUMAYA MISCHER [id number] 10:30:00 23:59:59 Sam 05 Dennis 2020-06-12 2020-06-12 Ambulatory nullFlavo MNA [id number] [facility] 15:30:00 15:30:00 Pre-Reg r Neurology 04 david Dawkins 2020-06-12 2020-06-12 Ambulatory nullFlavo MNA [id number] [facility] 15:30:00 15:30:00 Pre-Reg r Neurology 04 l Brooks Dawkins 2020-06-12 2020-06-12 Outpatient MHIE MHIE [id number] [facility] 10:30:00 10:30:00 05 david Dawkins 2020-06-12 2020-06-12 Outpatient [facility]IE [facility] [id number] 10:30[facility] 10:30:00 04 david Dawkins 2020-06-12 2020-06-12 Outpatient MEHUL ParedesMISCHER MHMISCHER [id number] 10:30:00 10:30:00 Sam Donna Collins 2020-05-18 2020-05-18 Outpatient STLMLC STLMLC [id number] Common 00:00:00 00:00:00 [facility] 2020-04-07 2020-04-07 Outpatient STLMLC STLMLC [id number] Common 00:00:00 00:00:00 [facility] 2020-02-18 2020-02-18 Outpatient STLMLC STLMLC [id number] Common 00:00:00 00:00:00 [facility] 2020-02-06 2020-02-06 Outpatient STLMLC STLMLC [id number] Common 00:00:00 00:00:00 [facility] 2019-11-20 2019-11-20 Outpatient STLMLC STLMLC [id number] Common 00:00:00 00:00:00 [facility] 2019-11-20 2019-11-20 Outpatient STLMLC STLMLC [id number] Common 00:00:00 00:00:00 [facility] 2019-11-20 2019-11-20 Outpatient STLMLC STLMLC [id number] Common 00:00:00 00:00:00 [facility] 2019-08-19 2019-08-19 [place] [id number] Common 16:15:00 16:15:00 [address] [place] [address] [facility] 2019-08-16 2019-08-16 Out[facility] [id number] Common 09:45:00 09:45:00 [address] [place] [address] [facility] 2019-08-09 2019-08-09 Outpatient [facility] [id number] Common 15:20:00 15:20:00 [address] [place] [address] [facility] 2019-06-14 2019-06-15 Outpatient nullFlavo MNA [id number] [facility] 15:45:00 04:59:59 r Neurology 03 l Brooks Dawkins 2019-06-14 2019-06-15 Outpatient nullFlavo MNA [id number] [facility] 15:45:00 04:59:59 r Neurology 03 l Brooks Dawkins 2019-06-14 2019-06-14 Outpatient ANGELICA ParedesSCHSUMAYA MHMISCHER [id number] 10:45:00 23:59:59 Sam 03 Dennis 2019-06-14 2019-06-14 Outpatient MHIE MHIE [id number] [facility] 10:45:00 10:45:00 03 l Juancho 2019-05-23 2019-05-23 Ambulatory nullFlavo MNA [id number] [facility] 14:00:00 14:00:00 Pre-Reg r Neurology 02 l Brooks Dawkins 2019-05-23 2019-05-23 Ambulatory nullFlavo MNA [id number] [facility] 14:00:00 14:00:00 Pre-Reg r Neurology 02 l Brooks Dawkins 2019-05-23 2019-05-23 Outpatient MHIE MHIE [id number] [facility] 09:00:00 09:00:00 02 david Dawkins 2019-05-23 2019-05-23 Outpatient ANGELICA ParedesSCHSUMAYA MISCHER [id number] 09:00:00 09:00:00 Sam 02 Dennis 2019-05-22 2019-05-22 Out[facility] [id number] Common 14:45:00 14:45:00 [address] [place] [address] [facility] 2019-05-13 2019-05-13 Outpatient [facility] [id number] Common 10:33:00 10:33:00 [address] [place] [address] [facility] 2019-05-02 2019-05-02 Outpatient [facility] [id number] Common 16:42:00 16:42:00 [address] [place] [address] [facility] 2019-04-29 2019-04-29 Outpatient [facility] [id number] Common 08:36:00 08:36:00 [address] [place] [address] [facility] 2019-04-24 2019-04-24 Outpatient [facility] [id number] Common 13:15:00 13:15:00 [address] [place] [address] [facility] 2019-04-23 2019-04-23 Outpatient [facility] [id number] Common 15:22:00 15:22:00 [address] [place] [address] [facility] 2019-03-13 2019-03-13 Outpatient [facility] [id number] Common 13:30:00 13:30:00 [address] [place] [address] [facility] 2018-05-17 2018-05-17 Outpatient MHIE MHIE [id number] [facility] 09:00:00 09:00:00 01 david Dawkins 2018-05-17 2018-05-17 Outpatient MHIE GISELE [id number] [facility] 09:00:00 09:00:00 01 david Dawkins 2017-05-18 2017-05-18 Outpatient MHIE MHIE [id number] 165 [facility] 09:00:00 09:00:00 00 david Dawkins 2017-05-18 2017-05-18 Outpatient MHIE MHIE [id number] [facility] 09:00:00 09:00:00 00 dvaid Dawkins Results Test Description Test Time Test Comments Results Result [facility] e Comments 2D Echo Ejection FractionSLEH [facility] W/Doppler(CW/PW/ 4 ECHO HEARTLAB [facility]) 13:05:06 [facility] 2D Echo Ejection FractionSLEH [facility] W/Doppler(CW/PW/ 4 ECHO HEARTLAB [facility]) 13:05:06 [facility] RAD, CHEST, 1 post-operative VIEW, NON DEPT 4 day 1Reason for 07:49:00 exam:->s/p [facility] CENTER[facility]: Sebastian NEWSOME : bedside?->Yes 1945 Sex: M FINAL REPORT RAD, CHEST, 1 VIEW, NON DEPT INDICATION: s/p tavr COMPARISON: None FINDINGS: Portable frontal view of the chest. IMPRESSION: No focal lung consolidation, pleural effusion or pneumothorax. Cardiomediastinal silhouette is magnified by technique. Intact osseous structures. Signed: Chico Ortiz Verified Date/Time: 09/30/2021 07:49:52 -Glucose meter 2021-09-30 07:07:37 Test Item Value Reference Range Interpretation Comme nts POC-Glucose Meter (test code = 128 mg/dL 70-110 H : TESTED AT [address] 1538) [facility], [facility] 30: Litigation Partner/Techni edgar ID = [id number] for MYNOR OSORIO Lab Interpretation (test code = Abnormal 03048-9) [facility] [id number] 07:07:37 Test Item Value Reference Range Interpretation Comments POC-Glucose Meter (test 128 mg/dL 70-110 H : TE STED AT [facility] code = 1538) [address] [place] [address], 770 30: Litigation Partner/Techni edgar ID = [id number] for MYNOR OSORIO Lab Interpretation (test Abnormal code = 17707-0) [facility] [id number] 07:07:37 Test Item Value Reference Range Interpretation Comments POC-GLUCOSE METER 128 mg/dL 70-110 H : TESTED A T [facility] 6720 (BEAKER) (test code = MARGO White [facility], 1538) [address]: Litigation Partner/Techni edgar ID = [id number] for MYNOR OSORIO BASIC METABOLIC [id number] 05:24:00 Test Item Value Reference Range Interpretation [...] eGFR (test code = mL/min/1.73 values Stage D escription 1092) sq m Result G1 Jayne l [...] not appl icable for dialysis patien ts Litigation Partner ID - PIAYA LCBC (HEMOGRAM ONLY)2021-09-30 04:59:49 [...] CELL DISTRIBUTION WIDTH 14.9 % 11.6-14.4 H (BEAKER) (test code = 412) PLATELET COUNT (BEAKER) (test code 76 K/CU MM 150-450 L = 756) MEAN PLATELET VOLUME (BEAKER) 11.1 fL 9.4-12.4 (test code = 754) NUCLEATED RED BLOOD CELLS (BEAKER) 0 /100 WBC 0-0 (test code = 413) POCT-GLUCOSE [id number] 22:03:55 Test Item Value Reference Range Interpretation Comments POC-GLUCOSE METER 162 mg/dL 70-110 H : Notified RN/MD: ([facility]) (test code = TESTED AT [place] [address] 1535) [facility], [address]: Litigation Partner/Techni edgar ID = [id number] for JOVI RAMIREZ Transesophageal [id number] 18:57:01Ejection FractionSLEH ECHO HEARTLAB MKCKESSON [facility] [id number] 18:57:01Ejection FractionSLEH ECHO HEARTLAB MKCKESSON [facility] ACTIVATED CLOTTING [id number] 16:21:30 Test Item Value Reference Range Interpretation Comments Activated Clotting Time 144 sec : 74 -137 seconds, (test code = 3184-9) Baselin e: TESTED AT [address], [address] 30: Litigation Partner/Techni edgar ID = [id number] for Go , [place] [facility] ACTIVATED CLOTTING [id number] 16:21:30 Test Item Value Reference Range Interpretation Comments Activated Clotting Time 144 sec : 74 -137 seconds, (test code = 3184-9) Baselin e: TESTED AT [facility] 67[address] [facility], 770 30: Litigation Partner/Techni edgar ID = [id number] for Go , [place] [facility][id number] 16:21:30 Test Item Value Reference Range Interpretation Comments ACTIVATED CLOTTING TIME 144 sec : 74 -137 seconds, (BEAKER) (test code = Baseli ne: TESTED AT 441) [facility] 67[address] [facility], 770 30: Litigation Partner/Techni edgar ID = [id number] for Go , [place] POCT-GLUCOSE [id number] 16:13:14 Test Item Value Reference Range Interpretation Comments POC-GLUCOSE METER 120 mg/dL 70-110 H : TESTED A T [place] [address] (BEAKER) (test code = [facility], 1538) [address]: Litigation Partner/Techni edgar ID = [id number] for BA TTAD, LUCÍA Prepare [id number] 15:30:00 Test Item Value Reference Range Interpretation Comments CROSSMATCH (test code = COMPATIBLE 2264) Unit ABO (test code = O Pos 7142450) UNIT NUMBER (test code = [id number] 934-0) Status (test code = RETURNED FROM ISSUE 4010009) Blood Bank Product (test RED BLOOD CELLS code = 2263) PRODUCT CODE (test code = V4332G91 933-2) [facility] [id number] 15:30:00 Test Item Value Reference Range Interpretation Comments CROSSMATCH (test code = COMPATIBLE 2264) Unit ABO (test code = O Pos 4907261) UNIT NUMBER (test code = [id number] 934-0) Status (test code = RETURNED FROM ISSUE 7594976) Blood Bank Product (test RED BLOOD CELLS code = 2263) PRODUCT CODE (test code = C2763B36 933-2) [facility][id number] 15:15:20 Test Item Value Reference Range Interpretation Comments ACTIVATED CLOTTING TIME 184 sec : 74 -137 seconds, (BEAKER) (test code = Baseli ne: TESTED AT 441) [facility] 67[address] [facility], 770 30: Litigation Partner/Techni edgar ID = [id number] for [place] [id number] 14:20:35 Test Item Value Reference Range Interpretation Comments ACTIVATED CLOTTING TIME 277 sec : 74 -137 seconds, (BEAKER) (test code = Baseli ne: TESTED AT 441) [facility] 67[address] [facility], 770 30: Litigation Partner/Techni edgar ID = [id number] for QUINCY [place] B-TYPE NATRIURETIC FACTOR (BNP)2021-09-23 16:28:06 Test Item Value Reference Range Interpretation Comments B-TYPE NATRIURETIC PEPTIDE (BEAKER) 91 pg/mL 0-100 (test code = 700) Litigation Partner ID - ADMINCOMPREHENSIVE METABOLIC [id number] 15:51:41 Test Item Value Reference Range Interpretation [...] not appl icable for dialysis patien ts Litigation Partner ID - ADMINCBC W/PLT COUNT & AUTO [id number] 15:40:59 Test Item Value Reference Range Interpretation [...] PERCENT (BEAKER) (test code = 2801) PROTHROMBIN TIME/[id number] 15:38:16 Test Item Value Reference Range Interpretation Comments PROTIME (BEAKER) 13.5 seconds 11.9-14.2 (test code = 759) INR (BEAKER) (test 1.05 See_Comment [Automat ed message] code = 370) The system [employer] generated this result transmitted ref erence range: <=5.90. The reference range was not used to int erpret this result as normal/abnormal . RECOMMENDED COUMADIN/WARFARIN INR THERAPY RANGESSTANDARD DOSE: 2.0 - 3.0 Includes: PROPHYLAXIS for venous thrombosis, systemic embolization; TREATMENT for venous thrombosis and/or pulmonary embolus.HIGH RISK: Target INR is 2.5-3.5 for patients with mechanical heart valves.COVID 19 Asymptomatic IH [id number] 12:19:00 Test Item Value Reference Range Interpretation Comments COVID 19 Asymptomatic Negative Negative A nega tive result is IH AG (test code = presumpti ve and should COVNONPUIAG) be confirmedwit h an FDA authorized mole cular assay, if neces pily forpatient nirav gement.A positive result does not rule out co-inf [...] or waivedcomplexit y tests. 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 [employer] [facility] GLOMERULAR FILTRATION 45 ML/MIN Perfor med by RATE POC (test code = certif ied draw bench operator at [facility]) [facility] - [facility] ANGIO [id number] 00:00:00 [facility] 1945 Sex: MName: BILLY NEWSOME [facility] : 1945 Age/S: 76 / M [address] [place] [address] Bl Unit #: [id number] Loc: [place] [address] Phys: Neetu Shah [facility] Acct: [id number] Dis Date: Status: REG CLI PHONE #: [phone] Exam Date: 08/24/2021 1111 FAX #: [phone] Reason: AORTIC STENOSIS EXAMS: CPT CODE: [id number] CT ANGIO CHEST 54380 PROCEDURE INFORMATION: Exam: CTA Heart and Coronary Arteries Without and With Contrast Exam date and time: 08/24/2021 10:42 AM Age: 76 years old Clinical indication: Other: Aortic stenosis TECHNIQUE: Imaging protocol: Computed tomographic angiography of theheart, coronary arteries and bypass grafts (when present) without and with contrast including 3D image postprocessing (including evaluation of cardiac structure and morphology, assessment of cardiac function, and evaluation of venous structures, if performed). 3D rendering (Not supervised by radiologist): MIP and/or 3D reconstructed images were created by the technologist. Radiation optimization: AllCT scans at this facility use at least one of these dose optimization techniques: automated exposurecontrol; mA and/or kV adjustment per patient size [...] 1 Signed Report (CONTINUED) Name: BILLY NEWSOME [facility] : 1945 Age/S: 76 / M [address] [place], [place] [address]vd Unit #: [id number] Loc: JONAH Fung [address] Phys: Casi Shah Acct: [id number] Dis Date: Status: REG CLI PHONE #: [phone] Exam Date: 08/24/2021 1111 FAX #: [phone] Reason: AORTIC STENOSIS EXAMS: CPT CODE: [id number] CT ANGIO CHEST 20979 (Continued) Incidental note was made of mild to moderate calcification within the mitral valve. Left atriumappeared normal in AP dimension. The left atrial appendage appears to fill normally with contrast. There is no pericardial effusion. Lungs: Limited views of the lungs are unremarkable. Mediastinal space: Limited views of the mediastinal space is unremarkable. IMPRESSION: Elevated calcium score within the aortic valve consistent with severe aortic stenosis. Mild to moderate calcification within mitralvalve. Aortic valve measurements as estimated above. Evaluation of the coronary vessels was limited. PROCEDURE INFORMATION: Exam: CTA Chest Without And With Contrast CTA Abdomen and Pelvis Without And With Contrast Exam date and time: 08/24/2021 10:42 AM Age: 76 years old Clinical indication: Other: Aortic stenosis TECHNIQUE: Imaging protocol: Computed tomographic angiographyof the chest without and with contrast. Computed tomographic angiography of the abdomen and pelvis without and with contrast. 3D rendering (Not supervised by radiologist): MIP and/or 3D reconstructedimages were created by the technologist. Radiation optimization: [...] The descending thoracic aorta is free of significantatherosclerotic disease. Within the abdominal aorta the celiac trunk and superior mesenteric arteries are patent. There are single renal arteries bilaterally which are patent. The inferior mesenteric artery is patent. There PAGE 2 Signed Report (CONTINUED) Name: BILLY NEWSOME [facility] [place] :1945 Age/S: 76 / M [address] [place] [address] Blvd Unit #: [id number] Loc: JONAH Fung [address] Phys: Neetu Shah [employer] Acct: [id number] Dis Date: Status: REG CLI PHONE #: [phone] Exam Date: 08/24/2021 1111 FAX #: [phone] Reason: AORTIC STENOSIS EXAMS: CPT CODE: [id number] CT ANGIO CHEST 98573 (Continued) is infrarenal aorta demonstrate minimal atherosclerotic calcification. The distal aortameasures 16 mm. The right common iliac artery [...] Pleural spaces: Unremarkable. No pneumothorax. No pleural effusion.Heart: Unremarkable. No cardiomegaly. No pericardial effusion. Mild [...] CTA chest, abdomen, and pelvis. Minimal atherosclerotic calcificationto the distal aorta and common iliac arteries. Common femoral and iliac arteries are patent and wellpreserved. PAGE 3 Signed Report (CONTINUED) Name: BILLY NEWSOME [facility] : 1945 Age/S: 76 / M [address] [place] [address] Blvd Unit #: [id number] Loc: JONAH Fung [address] Phys: Neetu Shah [employer] Acct: [id number] Dis Date: Status: REG CLI PHONE #: [phone] Exam Date: 08/24/2021 1111 FAX #: [phone] Reason: AORTIC STENOSIS EXAMS: CPT CODE: [id number] CT ANGIO CHEST 99675 (Continued) at 2330 Reported and signed by: Trevor Villarreal M.D CC: Neetu Shah; Yannjosé Diaz DO; Nawaf Dotson MD Technologist:Russell Jimenez, RT(R)(CT) CTDI: DLP: Trnscb Date/Time: 08/24/2021 (2329) [email or web address] Orig Print D/T: S: 08/24/2021 (2329) PAGE 4 Signed Report- CTA ABD PEL W [id number] 00:00:00 [facility] 1945 Sex: MName: BILLY NEWSOME [facility] : 1945 Age/S: 76 / M [address] [place] [address] Unit #: [id number] Loc: [place] [address] Phys: Neetu Shah Acct: [id number] Dis Date: Status: REG CLI PHONE #: [phone] Exam Date: 08/24/2021 1110 FAX #: [phone] Reason: AORTIC STENOSIS EXAMS: CPT CODE: [id number] CTA ABD PEL W CONT 14793 PROCEDURE INFORMATION: Exam: CTA Heart and Coronary [...] demonstrates elevated Agatson score of 2074. This isconsistent with the patient's history of severe aortic stenosis. Using a 3D workstation the aortic valve was studied in multiple cardiac phases. At the level of the sinus of Valsalva the average diameter measured 32.4 mm in diameter. The perimeter measured 106 mm. There is no significant calcificationappreciated at the sino- tubular ridge. The aortic valve annulus was estimated at 26.5 mm with an area of 560 mm2 and a perimeter of 89 mm. Left main height measured approximately 19 mm. Right coronary height measured 15 mm. CARDIAC: Evaluation of the coronary tree was slightly limited. Right coronaryartery origin appeared patent. There is mild atherosclerotic plaque appreciated within the proximal and distal right coronary artery. The left main appeared patent with a bifurcation into the LAD and left circumflex. Evaluation of the mid and distal LAD was limited. There is calcified plaque within 1st diagonal vessel. PAGE 1 Signed Report (CONTINUED) Name: BILLY NEWSOME [facility] : 1945 Age/S: 76 / M [address] [place], [place] [address]vd Unit #: [id number] Loc: JONAH Fung [address] Phys: Neetu Shah Acct: [id number] Dis Date: Status: REG CLI PHONE #: [phone] Exam Date: FAX #: [phone] Reason: AORTIC STENOSIS EXAMS: CPT CODE: [id number] CTA ABD PEL W CONT 47069 (Continued) Incidental note was made of mild to moderate calcification within the mitral valve. Left atrium appeared normal in AP dimension. The left atrial appendage appears to fill normally with cont rast. There is no pericardial effusion. Lungs: Limited views of the lungs are unremarkable. Mediastinal space: Limited views of the mediastinal space is unremarkable. IMPRESSION: Elevated calcium scorewithin the aortic valve consistent with severe aortic stenosis. Mild to moderate calcification within mitral valve. Aortic valve measurements as estimated above. Evaluation of the coronary vessels waslimited. PROCEDURE INFORMATION: Exam: CTA Chest Without And With Contrast CTA Abdomen and Pelvis Without And With Contrast Exam date and time: 08/24/2021 10:42 AM Age: 76 yearsold Clinical indication: Other: Aortic stenosis TECHNIQUE: Imaging protocol: Computed tomographic angiography of the chest without and with contrast. Computed tomographic angiography of the abdomen andpelvis without and with contrast. 3D rendering (Not [...] studies available. FINDINGS: The ascending aorta is freeof significant atherosclerotic calcification. Transverse aortic arch demonstrates a 3 vessel arch configuration with minimal atherosclerotic calcification. The descending thoracic aorta is free of significant atherosclerotic disease. Within the abdominal aorta the celiac trunk and superior mesenteric arteries are patent. There are single renal arteries bilaterally which are patent. The inferior mesenteric artery is patent. There PAGE 2 Signed Report (CONTINUED) Name: BILLY NEWSOME [facility] : 1945 Age/S: 76 / M [address] [place], [place] [address]vd Unit #: [id number] Loc: JONAH Fung [address] Phys: Neetu Shah Acct: [id number] Dis Date: Status: REG CLI PHONE #: [phone] Exam Date:08/24/2021 1110 FAX #: [phone] Reason: AORTIC STENOSIS EXAMS: CPT CODE: [id number] CTA ABD PEL WCONT 92035 (Continued) is infrarenal aorta demonstrate minimal atherosclerotic calcification. The distal aorta measures 16 mm. The right common iliac artery is patent with minimal atherosclerotic disease. The right hypogastric artery is patent. The right external iliac artery is patent. There is minimal posterior plaque to the right common femoral artery. There is a preserved bifurcation to the rightcommon femoral artery. The left common iliac artery demonstrates minimal atherosclerotic calcification and is patent. The left hypogastric artery is patent. There is minimal tortuosity to a patent leftexternal iliac artery. The femoral artery is patent with a preserved bifurcation. His CHEST: Lungs: U nremarkable. No consolidation. No masses. Pleural spaces: Unremarkable. [...] Reproductive: Unremarkable as visualized. Lymph nodes: Unremarkable. Noenlarged lymph nodes. Bones/joints: Mild osteopenia with degenerative changes of the bony pelvis and lumbar spine. IMPRESSION: Unremarkable CTA chest, abdomen, and pelvis. Minimal atherosclerotic calcification to the distal aorta and common iliac arteries. Common femoral and iliac arteries are patent and well preserved. PAGE 3 Signed Report (CONTINUED) Name: BILLY NEWSOME [facility] :1945 Age/S: 76 / M [address] [place], [place] [address]vd Unit #: [id number] Loc: [place] [address] Phys: YahirNeetu martinez [employer] Acct: [id number] Dis Date: Status: REG CLI PHONE #: [phone] Exam Date: 08/24/2021 1110 FAX #: [phone] Reason: AORTIC STENOSIS EXAMS: CPT CODE: [id number] CTA ABD PEL W CONT 24367 (Continued) at 2330 Reported and signed by: Trevor Villarreal M.D CC: Neetu Shah; Yannjosé Diaz DO; Nawaf Harris Technologist:Russell Jimenez, RT(R)(CT) CTDI: DLP: Trnscb Date/Time: 08/24/2021 (2329) [email or web address] Orig Print D/T: S: 08/24/2021 (2329) PAGE 4 Signed Report- CTA HEART W CN [id number] 00:00:00 [facility] 1945 Sex: MName: BILLY NEWSOME [facility] : 1945 Age/S: 76 / M [address] [place] [address] Bl Unit #: [id number] Loc: [place] [address] Phys: Neetu Shah Acct: [id number] Dis Date: Status: REG CLI PHONE #: [phone] Exam Date: 08/24/2021 1110 FAX #: [phone] Reason: EXAMS: CPT CODE: [id number] CTA HEART W CN ART/GRAFTS 30861 PROCEDURE INFORMATION: Exam: CTA Heart and Coronary [...] reconstruction. Contrast material: ISOVUE 370; Contrast volume: 100ml; Contrast route: INTRAVENOUS (IV); Other technique: 3D [...] 1 Signed Report (CONTINUED) Name: BILLY NEWSOME [facility] : 1945ge/S: 76 / M [address] [place] [address] Blvd Unit #: [id number] Loc: JONAH Fung [address] Phys: Carlitos Shah Acct: [id number] Dis Date: Status: REG CLI PHONE #: [phone] Exam Date: 08/24/2021 1110 FAX #: [phone] Reason: EXAMS: CPT CODE: [id number] CTA HEART W CN ART/GRAFTS 61381 (Continued) Incidental note was made of mild [...] angiography of the abdomen and pelvis without andwith contrast. 3D rendering (Not supervised by radiologist): MIP and/or 3D reconstructed images werecreated by the technologist. Radiation optimization: All CT scans at this facility use at least one of these dose optimization techniques: automated exposure control; mA and/or kV adjustment per patient size (includes targeted exams where dose is matched to clinical indication); or iterative reconstruc tion. Contrast material: ISOVUE 370; Contrast volume: 100 [...] 2 Signed Report (CONTINUED) Name: BILLY NEWSOME [facility] : 1945ge/S: 76 / M [address] [place] [address] Bl Unit #: [id number] Loc: JONAH Fung [address] Phys: YahirtommyConner puckettDawit Acct: [id number] Dis Date: Status: REG CLI PHONE #: [phone] Exam Date: 08/24/2021 1110 FAX #: [phone] Reason: EXAMS: CPT CODE: [id number] CTA HEART W CN ART/GRAFTS 65282 (Continued) is in frarenal aorta demonstrate minimal atherosclerotic calcification. The distal [...] effusion. Mild mitral valvular calcification. Aortic valvular calci fication. ABDOMEN AND PELVIS: Liver: No mass. Gallbladder and bile ducts: Unremarkable. No calcifiedstones. No ductal dilation. Pancreas: Unremarkable. No mass. [...] 3 Signed Report (CONTINUED) Name: BILLY NEWSOME [facility] : 1945 Age/S: 76 / M [address] [place], [place] [address]vd Unit #: [id number] Loc: [place]AH [address] Phys: Neetu Shah [facility] Acct: [id number] Dis Date: Status: REG CLI PHONE #: [phone] Exam Date: 08/24/2021 1110 FAX #: [phone] Reason: EXAMS: CPT CODE: [id number] CTA HEART W CN ART/GRAFTS 94073 (Continued) at 2330 Reported and signed by: Trevor Villarreal M.D CC: Neetu Shah; Yann Diaz DO; Nawaf Dotson MD Technologist:Russell Jimenez, RT(R)(CT) CTDI: DLP: Trnscb Date/Time: 08/24/2021 (2329) [email or web address] Orig Print D/T: S: 08/24/2021 (2329) PAGE 4 Signed Report
[2022-02-16 12:48] LABS: Hematocrit 29.8 % (39.6-49.0); MCV 90.9 fL (80-100); MPV 8.6 fL (7.6-11.3); RBC Red Blood Cell Count 3.27 M/uL (4.33-5.43)
[2022-02-16 12:49] LABS: Absolute Lymphocytes (CBC) 0.3 K/uL (0.7-4.9)
[2022-02-16 13:09] LABS: Troponin High Sensitivity 25.6 pg/mL (<58.9)
[2022-02-16 13:21] LABS: Platelet Estimate DECR; Platelets, Giant NONE SEEN
[2022-02-16 13:22] LABS: Blood Morphology Comment NOT SEEN (NOT SEEN); White Blood Cell Scan OK (OK)
--- NOTE | 2022-02-16 13:26 | RAD REPORT ---
EXAM DESCRIPTION: Adamt Single View02/16/2022 1:04 pm CLINICAL HISTORY: Cough COMPARISON: December 2021 FINDINGS: Right upper lobe opacity has resolved Lungs appear clear of acute infiltrate. Heart is normal size
[2022-02-16 15:03] LABS: Urine Blood Negative (Negative); Urine Glucose Negative (Negative); Urine Protein Negative (Negative)
[2022-02-16 15:24] LABS: SARS-COV-2 RT PCR NEGATIVE (NEGATIVE)
[2022-02-16 15:41] LABS: Urine Bacteria None Seen /HPF (<20); Urine RBC <5 /HPF (None Seen)
--- NOTE | 2022-02-16 15:50 | ER ---
Nurse's Notes [facility] Name: Dwight Flaherty Age: 76 yrs Sex: Male : 1945 Arrival Date: 02/16/2022 Time: 11:52 Bed 8 Private MD: Diagnosis: Fever, unspecified Presentation: 02/16 12:44 Chief complaint: Patient states: I had chills all night that shook my bed, they finally kr3 quit early this morning. When I woke up I took my temp and it was 102. I took 3 extra strength tylenol and rechecked my temp and it was down to 100. Coronavirus screen: Vaccine status: Patient reports receiving the 2nd dose of the covid vaccine. Client denies travel out of the [place] in the last 14 days. Ebola Screen: Patient denies travel to an Ebola-affected area in the 21 days before illness onset. No acute neurological deficit is noted. Pre-hospital glucose is not applicable to this patient. 12:44 Method Of Arrival: Ambulatory kr3 12:50 Initial Sepsis Screen: Does the patient meet any 2 criteria? No. Patient's initial kr3 sepsis screen is negative. Does the patient have a suspected source of infection? Yes: Skin breakdown/wound. Risk Assessment: Do you want to hurt yourself or someone else? Patient reports no desire to harm self or others. Onset of symptoms was February 16, 2022. 12:50 Acuity: GENO 3 kr3 Triage Assessment: 12:54 The onset of the patients symptoms was February 16, 2022 at 07:30. General: Appears in kr3 no apparent distress. comfortable, Behavior is calm, cooperative, appropriate for age. Pain: Denies pain. Neuro: Reports weakness in generalized. 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 - Social history:: Smoking status: Patient/guardian denies using tobacco, the patient reports quitting approximately 40 years ago. - Family history:: not pertinent. Screenin:27 [facility] ED Fall Risk Assessment (Adult) History of falling in the last 3 months, kr3 including since admission No falls in past 3 months (0 pts) Confusion or Disorientation No (0 pts) Intoxicated or Sedated No (0 pts) Impaired Gait No (0 pts) Mobility Assist Device Used Yes (1 pt) Altered Elimination No (0 pt) Score/Fall Risk Level 0 - 2 = Low Risk Oriented to surroundings, Maintained a safe environment, Educated pt \T\ family on fall prevention, incl call for assistance when getting out of bed, Hourly rounding (assess needs \T\ fall precautionary measures) done, Used ambulatory aids as needed (educated on \T\ assisted with). Abuse screen: Denies threats or abuse. Nutritional screening: No deficits noted. Tuberculosis screening: No symptoms or risk factors identified. Assessment: 14:45 Reassessment: Patient and/or family updated on plan of care and expected duration. Pain kr3 level reassessed. Patient is alert, oriented x 3, equal unlabored respirations, skin warm/dry/pink. 15:37 Reassessment: Patient and/or family updated on plan of care and expected duration. Pain kr3 level reassessed. patient is having chills on and off. 16:26 Reassessment: No changes from previously documented assessment. Patient and/or family kr3 updated on plan of care and expected duration. Pain level reassessed. Patient is alert, oriented x 3, equal unlabored respirations, skin warm/dry/pink. 16:27 The patient has not been NPO before screening. The patient is alert, and able to follow kr3 commands. The patient does not exhibit slurred or garbled speech. The patient is not exhibiting difficulty speaking. The patient is exhibiting difficulty understanding words. The patient is able to swallow own secretions with no drooling or need for suction. Patient tolerated one teaspoon of water. No drooling, immediate coughing, gurgling, or clearing of the throat was noted. Vital Signs: 12:53 BP 127 / 59; Pulse 88; Resp 20; Temp 98.3; Pulse Ox 98% on R/A; Weight 168.28 kg; kr3 Height 6 ft. 7 in. (200.66 cm); 15:30 BP 136 / 55; Pulse 108; Resp 20; Pulse Ox 95% on R/A; kr3 16:26 BP 124 / 57; Pulse 107; Resp 20; Pulse Ox 95% on R/A; kr3 12:53 Body Mass Index 41.79 (168.28 kg, 200.66 cm) kr3 ED Course: 11:52 Patient arrived in ED. jm9 12:00 Ismael Gandara MD is Attending Physician. rt 12:11 Vesna Alejo RN is Primary Nurse. jl7 12:30 Arm band placed on right wrist. Patient placed in an exam room, on a stretcher. kr3 12:30 Inserted saline lock: 22 gauge in right antecubital area, using aseptic technique. kr3 Blood collected. 12:51 Triage completed. kr3 13:06 Chest Single View XRAY In Process Unspecified. EDMS 14:28 Keeley Daniel RN is Primary Nurse. kr3 14:29 COVID-19/FLU A+B Sent. kr3 14:29 Blood Culture Adult (2) Sent. kr3 16:28 No provider procedures requiring assistance completed. IV discontinued, intact, kr3 bleeding controlled, No redness/swelling at site. Pressure dressing applied. Administered Medications: No medications were administered Medication: 16:28 VIS not applicable for this client. kr3 Outcome: 15:49 Discharge ordered by MD. rt 16:26 Patient left the ED. kr3 16:28 Discharged to home via wheelchair. kr3 16:28 Condition: stable 16:28 Discharge instructions given to patient, Instructed on discharge instructions, follow up and referral plans. Demonstrated understanding of instructions, follow-up care. Signatures: Dispatcher [employer] EDUT Vesna Alejo RN RN jl7 Natalia Latham 9 Keeley Daniel RN RN kr3 Ismael Gandara MD MD rt Corrections: (The following items were deleted from the chart) 12:55 07:30 The onset of the patients symptoms was February 16, 2022 at 12:54 kr3 kr3
--- NOTE | 2022-02-16 15:50 | EDPHYS ---
Physician Documentation [facility] Name: Dwight Flaherty Age: 76 yrs Sex: Male : 1945 Arrival Date: 02/16/2022 Time: 11:52 Bed 8 Private MD: ED Physician Ismael Gandara HPI: 02/16 15:50 This 76 yrs old Male presents to ER via Ambulatory with complaints of Weakness, CHILLS. rt 15:50 The patient presents to the emergency department with weakness of the. Onset: The rt symptoms/episode began/occurred this morning. Patient presents to the ED with chills, shaking starting overnight. Patient states that his temperature is 102. Patient took Tylenol which improved the symptoms. Stated that he felt somewhat weak. Denies cough, congestion, other acute complaints. Symptoms are moderate severity, no other aggravating or alleviating factors. Denies other acute complaints.. 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 - Social history:: Smoking status: Patient/guardian denies using tobacco, the patient reports quitting approximately 40 years ago. - Family history:: not pertinent. ROS: 15:50 Eyes: Negative for injury, pain, redness, and discharge, ENT: Negative for injury, rt pain, and discharge, Cardiovascular: Negative for chest pain, palpitations, and edema, Respiratory: Negative for shortness of breath, cough, wheezing, and pleuritic chest pain, Abdomen/GI: Negative for abdominal pain, nausea, vomiting, diarrhea, and constipation, Back: Negative for injury and pain, MS/Extremity: Negative for injury and deformity, Skin: Negative for injury, rash, and discoloration, Neuro: Negative for headache, weakness, numbness, tingling, and seizure, Psych: Negative for depression, anxiety, suicide ideation, homicidal ideation, and hallucinations. 15:50 Constitutional: Positive for chills, fever. Exam: 15:50 Constitutional: This is a well developed, well nourished patient who is awake, alert, rt and in no acute distress. Head/Face: Normocephalic, atraumatic. Eyes: Pupils equal round and reactive to light, extra-ocular motions intact. Lids and lashes normal. Conjunctiva and sclera are non-icteric and not injected. Cornea within normal limits. Periorbital areas with no swelling, redness, or edema. ENT: Nares patent. No nasal discharge, no septal abnormalities noted. Tympanic membranes are normal and external auditory canals are clear. Oropharynx with no redness, swelling, or masses, exudates, or evidence of obstruction, uvula midline. Mucous membranes moist. Neck: Trachea midline, no thyromegaly or masses palpated, and no cervical lymphadenopathy. Supple, full range of motion without nuchal rigidity, or vertebral point tenderness. No Meningismus. Chest/axilla: Normal chest wall appearance and motion. Nontender with no deformity. No lesions are appreciated. Respiratory: Lungs have equal breath sounds bilaterally, clear to auscultation and percussion. No rales, rhonchi or wheezes noted. No increased work of breathing, no retractions or nasal flaring. Abdomen/GI: Soft, non-tender, with normal bowel sounds. No distension or tympany. No guarding or rebound. No evidence of tenderness throughout. Skin: Warm, dry with normal turgor. Normal color with no rashes, no lesions, and no evidence of cellulitis. MS/ Extremity: Pulses equal, no cyanosis. Neurovascular intact. Full, normal range of motion. Neuro: Awake and alert, GCS 15, oriented to person, place, time, and situation. Cranial nerves II-XII grossly intact. Motor strength 5/5 in all extremities. Sensory grossly intact. Cerebellar exam normal. Normal gait. Psych: Awake, alert, with orientation to person, place and time. Behavior, mood, and affect are within normal limits. 15:50 Cardiovascular: Rate: normal, Heart sounds: murmur, systolic. 15:50 ECG was reviewed by the Attending Physician. rt Vital Signs: 12:53 BP 127 / 59; Pulse 88; Resp 20; Temp 98.3; Pulse Ox 98% on R/A; Weight 168.28 kg; kr3 Height 6 ft. 7 in. (200.66 cm); 15:30 BP 136 / 55; Pulse 108; Resp 20; Pulse Ox 95% on R/A; kr3 16:26 BP 124 / 57; Pulse 107; Resp 20; Pulse Ox 95% on R/A; kr3 12:53 Body Mass Index 41.79 (168.28 kg, 200.66 cm) kr3 MDM: 12:06 Patient medically screened. rt 15:52 Data reviewed: vital signs, nurses notes, old medical records, lab test result(s), EKG, rt radiologic studies. ED course: Presents to the ED with fever, chills. Patient is nonspecific EKG findings, these do appear to be due to the recent aortic valve replacement. Troponin is negative. Chest x-ray, labs are all unremarkable. No evidence of UTI. COVID, flu are negative. Patient's symptoms have mostly resolved in the ED. He is stable for outpatient care, no indications for admission at this time, is stable for outpatient care, return precautions discussed.. 02/16 12:17 Order name: Blood Culture Adult (2) rt 02/16 12:17 Order name: CBC with Diff; Complete Time: 13:31 rt 02/16 12:17 Order name: CMP; Complete Time: 13:31 rt 02/16 12:17 Order name: Lactate w/ 2H reflex if indic.; Complete Time: 13:31 rt 02/16 12:17 Order name: Urine Microscopic Only; Complete Time: 15:41 rt 02/16 12:17 Order name: Troponin HS; Complete Time: 13:31 rt 02/16 12:17 Order name: Cardiac monitoring; Complete Time: 13:09 rt 02/16 12:17 Order name: EKG - Nurse/Tech; Complete Time: 13:09 rt 02/16 12:17 Order name: IV Saline Lock - Large Bore; Complete Time: 14:29 rt 02/16 12:17 Order name: Chest Single View XRAY; Complete Time: 13:31 rt 02/16 12:17 Order name: COVID-19/FLU A+B; Complete Time: 15:41 rt 02/16 12:54 Order name: CBC Smear Scan; Complete Time: 13:31 EDMS 02/16 15:04 Order name: Urine Dipstick-Ancillary; Complete Time: 15:41 EDMS 02/16 12:17 Order name: Labs collected and sent; Complete Time: 14:29 rt 02/16 12:17 Order name: O2 Per Protocol; Complete Time: 14:29 rt 02/16 12:17 Order name: O2 Sat Monitoring; Complete Time: : rt 02/16 12:17 Order name: Vital Signs; Complete Time: 14:29 rt EC:50 Rate is 84 beats/min. Rhythm is regular, Normal Sinus Rhythm with No ectopy. QRS [place] rt is Normal. MN interval is normal. QT interval is normal. Clinical impression: NSR w/ Non-specific ST/T Changes. Administered Medications: No medications were administered Disposition Summary: 02/16/22 15:49 Discharge Ordered Location: Home rt Problem: new rt Symptoms: have improved rt Condition: Stable rt Diagnosis - Fever, unspecified rt Followup: rt - With: Private Physician - When: 2 - 3 days - Reason: Discharge Instructions: - Discharge Summary Sheet rt - Fever, Adult rt Forms: - Medication Reconciliation Form rt - Thank You Letter rt - Antibiotic Education rt - Prescription Opioid Use rt Signatures: Dispatcher [employer] Keeley Burt RN RN kr3 Ismael Gandara MD MD rt
[2022-02-16 16:32] VITALS: TEMP 98.3
[2022-02-16 16:33] VITALS: O2SAT 95
[2022-02-16 16:34] VITALS: BP 124/57
== END 2022-02-16 16:26 | disposition home or self-care (01) ==
LOC: ER 11:45
DX: R50.9 Fever, unspecified (principal); R53.1 Weakness; E11.9 Type 2 diabetes mellitus without complications; I10 Essential (primary) hypertension; Z20.822 Contact with and (suspected) exposure to COVID-19; Z95.2 Presence of prosthetic heart valve
CPT/HCPCS: 87040 ×2; 85025; 36415; 83605; 84484; 80053; 0240U; 71045; 81003; 81015; 87205; 93005

== ENCOUNTER 2022-02-17 13:16 | Inpatient (IN) | payer OTHER ==
--- OUTSIDE RECORDS SUMMARY | 2022-02-17 13:26 | XMS REPORT | Continuity of Care Document ---
:1945 Author Organization [facility] t Address [address] [place] [address] Care Team Providers Name Role Phone Yann Diaz Attending Clinician Unavailable LILIAN DELEON Attending Clinician Unavailable Antonino BARTHOLOMEW, Maryse Attending Clinician Unavailable Diya Rivera RN Attending Clinician Unavailable Lilian Deleon MD Attending Clinician [phone] LILIAN DELEON Attending Clinician Unavailable Geovani Canales MD Attending Clinician Kartik Killian MD Attending Clinician [phone] KARTIK KILLIAN Attending Clinician Unavailable Blayne BARTHOLOMEW, Bernarda Garrison Attending Clinician [phone] Neetu Shah Attending Clinician Unavailable Sam Paredes Attending Clinician LILIAN DELEON Admitting Clinician Unavailable Yann Diaz Admitting Clinician Unavailable Payers Payer Name Policy Type Policy Number Effective Date Expiration Date S [facility] MEDICARE PART A [id number] \[id number]\ [id number] - MEDICARE GENERIC [facility] [id number] 2021 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 00:00:00 [facility] [id number] 2021-09-222021-09-23 SUPPLEMENTAL 00:00:00 00:00:00 MEDICARE NOVITAS MB [id number] [facility] AENA C1 [id number] [facility] MEDICARE NOVITAS MB [id number] [facility] AETNA C1 [id number] [facility] [id number] [facility] AENA C1 [id number] [facility] Problems Condition Condition Condition Status [...] Disease Active [facility] carotid carotid 09-29 [facility] artery artery 00:00: Medical disease disease 00 Center CKD CKD Disease Active [facility] (chronic (chronic 09-29 [facility] kidney kidney 00:00: Medical disease), disease), 00 Cent er stage III stage III Severe Severe Disease Active [facility] aortic aortic 09-29 [facility] stenosis stenosis 00:00: Medica l 00 [...] Chronic Disease Active [facility] venous venous -30 [facility] insufficie insufficie 00:00: Me dical ncy ncy [...] [address] [facility] [facility] diabetes diabetes 7-29 [facility] mellitus mellitus 00:00: Medica l 00 Center Essential Essential Disease Active [facility] hypertensi hypertensi 7-29 [facility] on on 00:00: Medical 00 Center Hyperlipid Hyperlipid Disease Active [facility] emia 09-24 [facility] 00:00: Medical 00 Center Severe Severe Disease Active [facility] aortic aortic 09-23 [place] stenosis stenosis 00:00: of 00 Medicin e History of History of Disease [facility] total left total left 09-23 Co llege knee knee 00:00: of replacemen replacemen 00 Me dicin t t e (TKR)-2004 (TKR)-2004 Gout Gout Disease Active [facility] 09-23 College 00:00: of 00 Medicin e Asbestosis Asbestosis Disease Active [facility] (HCCode) (HCCode) 09-23 Colleg e (HCC) lung (HCC) lung 00:00: of disease disease 00 Medicin e CRLD CRLD Disease Active [facility] (chronic (chronic 09-23 Colleg e restrictiv restrictiv 00:00: of e lung e lung 00 Medicin disease) disease) e Chronic Chronic Disease Active [facility] venous venous 09-23 [place] insufficie insufficie 00:00: of ncy of ncy of 00 Medicin lower lower e extremity extremity Essential Essential Problem Active 2021-06-18 [facility] hypertensi hypertensi 10-22 04:44:46 l on on 00:00: Juancho (disorder) (disorder) 00 Active 10/23/2015 Problem 06/18/2021 [facility] Type II Type II Problem Active 2021-06-18 [facility] diabetes diabetes 10-22 04:44:46 l mellitus mellitus 00:00: n without without 00 complicati complicati on on (disorder) (disorder) Active 10/23/2015 Problem 06/18/2021 [facility] Essential Essential Problem Active 2021-06-18 [facility] tremor tremor 03-20 04:44:46 l (disorder) (disorder) 00:00: Marcus rmann Active 00 03/20/2015 Problem 06/18/2021 [facility] [id number] [place] [address] carotid Spirit stenosis - [facility] [id number] Vitamin D Problem Comm on deficiency Spirit - [facility] [id number] Chronic Problem Commo n diastolic Spirit congestive - CHI heart failure [facility] [id number] Chronic Problem Commo n heart Spirit failure - CHI with [facility] ejection Medical fraction Center Heart Murmur, Problem Common murmur cardiac Spirit - [facility] Gastroesop Chronic Problem Comm on hageal GERD Spirit reflux - CHI disease [facility] Iron Anemia, Problem Common deficiency iron Spirit anemia deficiency - [facility] Benign Hyperplast Problem Commo n neoplasm ic colon Spirit of colon polyp - [facility] [id number] Morbid Problem Commo n 9104 (severe) Spirit obesity - CHI due to [facility] [id number] Diabetic Problem Comm on polyneurop Spirit athy - [facility] associated St with type [facility] 2 diabetes Medica l mellitus Center [id number] PSA Problem Common (psoriatic Spirit arthritis) - [facility] [id number] History of Problem Co mmon gout Spirit - [facility] [id number] PUD Problem Common (peptic Spirit ulcer - CHI disease) [facility] [id number] shelter Problem Com mon (current) Spirit use of - CHI insulin [facility] [id number] Chronic Problem Common obstructiv Spirit e - [facility] Med[facility] l d COPD Center type [id number] Proteinuri Problem Com mon a, Spirit unspecifie - CHI d [facility] [id number] Type 2 [place] Com[place] [address] diabetes Spirit mellitus - CHI with other diabetic 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 04:44:46 l s [place] (disorder) (disorder) Active Problem 06/18/2021 [facility] Metal Metal Problem Active 2021-06-18 [facility] ia foreign foreign 04:44:46 l body in body in [place] upper limb upper limb (disorder) (disorder) Active Problem 06/18/2021 [facility] Allergies, Adverse Reactions, Alerts Allergy Allergy Status Severity Reaction(s) Onset Inactive Treating Comm ents Source Name Type Date Date Clinician No Known DA Active [facility] Allergie 05-25 Clear s 00:00: [place] 00 [facility] NO KNOWN Allergy Active [facility] Family History Family Member Diagnosis Comments Start Date Stop Date Source Natural brother Heart disease [facility] Natural brother Valvular heart [facility] disease [facility] Natural father Heart disease [facility] Natural father Heart failure [facility] Natural father Other [facility] Natural mother Alzheimer's disease [facility] Natural mother Stroke [facility] Social History Social Habit Start Date Stop Date Quantity Comments Source History of Tobacco [facility] - Use [facility] History SDOH [facility] Alcohol Frequency Medical Center History SDOH [facility] Alcohol Std Drinks Medica l Center History SDOH [facility] Alcohol Binge Medical [facility] Alcohol intake 2021-10-04 2021-10-04 Current drinker [facility] 00:00:00 00:00:00 of alcohol Medical Center (finding) History SDOH 2021-09-29 2021-09-[address] [facility] Transport Med 00:00:00 00:00:[address] History SDOH 2021-09-29 2021-09-[address] [facility] Housing Unable to 00:00:00 00:00:00 Medical Center Pay History [facility] 2021-09-29 2021-09-[address] [facility] Housing Places 00:00:00 00:00:00 Medical Ce nter Lived History [facility] 2021-09-29 2021-09-[address] [facility] Housing Homeless 00:00:00 00:00:00 Medical Center Last Year Cigarettes smoked 2021-09-24 2021-09-[address] [facility] current (pack per 00:00:00 00:00:00 Medical Center day) - Reported Tobacco use and 2021-09-24 2021-09-[address] [facility] k[facility] exposure 00:00:00 00:00:00 Medical Center History [facility] 2021-09-24 2021-09-[address] [facility] Alcohol Comment 00:00:00 00:00:00 Medical C enter Sex Assigned At [address] 00:00:00 00:00:00 Medical Center Smoking Status Start Date Stop Date Source Never smoked tobacco [facility] Social History 2021-06-15 15:08:27 2021-06-15 15:08:27 [facility] Medications Ordered Filled Start Stop Current Ordering [...] Medicin e Amoxicillin 2021-02- No Take 4 [place] 500 MG TABS 2-05 12-12 tablets [...] n/FA/lycope 8-30 mouth. [facility] n/lutein 16:09: Medical ([address] SILVER MEN ORAL) multivit-mi 2021-0 Yes Take by [facility] n/FA/lycope 8-30 mouth. [facility] n/lutein 16:09: Medical ([address] SILVER MEN ORAL) multivit-mi 2021-0 Yes Take by [facility] n/FA/lycope 8-30 mouth. [facility] n/lutein 16:09: Medical ([address] SILVER MEN ORAL) magnesium 2021-0 Yes 400mg [...] magnesium 48 daily. Center Tab tablet glipiZIDE 2-0 Yes 10mg Take [address] (GLUCOTROL) 8-30 by mouth 2 Laurie kes 10 MG 16:09: (two) Medical tablet 30 times Center daily before meals. glipiZIDE 2022-0 Yes 10mg Take [address] (GLUCOTROL) 8-30 by mouth 2 [facility]ie kes 10 MG 16:09: (two) Medical tablet 30 times Center daily before meals. glipiZIDE 2021-0 Yes 10mg Take 10 mg [...] (three) Center times daily with meals. calcium 2021-0 Yes 600mg Take 600 [facility] carbonate 8-30 mg by [facility] (OS-CAREY) 16:08: mouth 2 Medica l 600 mg 58 (two) Center calcium times (1,500 mg) daily with Tab breakfast and dinner. calcium 2-0 Yes 600mg Take 600 [facility] t carbonate 8-30 mg by [facility] (OS-CAREY) 16:08: mouth 2 Medica l 600 mg 58 (two) Center calcium times (1,500 mg) daily with Tab breakfast and dinner. calcium 2-0 Yes 600mg Take 600 [facility] t carbonate 8-30 mg by [facility] (OS-CAERY) 16:08: mouth 2 Medica l 600 mg 58 (two) Center calcium times (1,500 mg) daily with Tab breakfast and dinner. aspirin 81 2021-0 Yes 81mg QD Take [address] MG EC 8-30 by mouth [facility] tablet 16:08: daily. [address] aspirin 81 2-0 Yes 81mg QD Take [address] MG EC 8-30 by mouth [facility] tablet 16:08: daily. [address] aspirin 81 2-0 Yes 81mg QD Take [address] MG EC 8-30 by mouth [facility] tablet 16:08: daily. [address] apremilast Yes Take by [facility] (Otezla) 30 8-30 mouth. [facility] mg Tab 16:08: [address] apremilast Yes Take by [facility] (Otezla) 30 8-30 mouth. [facility] mg Tab 16:08: [address] apremilast Yes Take by [facility] (Otezla) 30 8-30 mouth. [facility] mg Tab 16:08: [address] clopidogreL 2022- No 75mg QD Take [address] (PLAVIX) 75 10-01 08-05 tablet (75 L ukes mg tablet [...] mouth Center daily for 90 days. furosemide 2021- No 40mg QD Take [address] (LASIX) 40 10-01 tablet (40 [facility]ie k[facility] MG tablet 00:00: 23:59 mg total) Me dical 00 :00 by mouth Center daily for 90 days. furosemide 2021- No 40mg QD Take [address] (LASIX) 40 10-01-03 tablet (40 [facility]ie kes MG tablet 00:00: 23:59 mg total) Me dical 00 :00 by mouth Center daily for 90 days. furosemide 2021- No 40mg Q.5D Take [address] (LASIX) 40 09-30 08-04 by mouth 2 Laurie kes MG tablet 10:58: 00:00 (two) Medica l 47 :00 times Center daily. furosemide 2-0 2022- No 40mg Q.5D Take [address] (LASIX) 40 8- 08-04 by mouth 2 Laurie kes MG tablet 10:58: 00:00 (two) Medica l 47 :00 times Center daily. furosemide 2022-0 2022- No 40mg Q.5D Take [address] (LASIX) 40 8-04 08-04 by mouth 2 Laurie kes MG tablet 10:58: 00:00 (two) Medica l 47 :00 times Center daily. furosemide 2-0 Yes 40mg Take 1 [facility] (LASIX) [...] mouth of 00 daily. Medicin e lisinopril 2-0 Yes 20mg Take 1 [facility] (PRINIVIL, 8-04 Tablet by Yessica ege ZESTRIL) 20 00:00: mouth two o f MG tablet 00 times Medicin daily. e clopidogrel 2022-0 Yes 75mg Take 1 [facility] (PLAVIX) 75 8-04 Tablet by Col lege MG Tablet 00:00: mouth of 00 daily. Medicin e lisinopriL 2-0 2023- No 20mg Take [address] (PRINIVIL,Z 8- 08-04 tablet (20 L ukes ESTRIL) 20 00:00: 23:59 mg total) M edical MG tablet 00 :00 by mouth 2 Cent er (two) times daily before meals. lisinopriL 2-0 2023- No 20mg Take [address] (PRINIVIL,Z 8- 08-04 tablet (20 L ukes ESTRIL) 20 [...] er (two) times daily before meals. clopidogrel 2021-0 2021- No 75mg Take 1 [place] [facility] (PLAVIX) 75 09-30 Tablet by Co llege MG Tablet 00:00: 00:00 mouth of 00 :00 daily. Medicin e minocycline 2021-0 2021- No 100mg Take 1 [facility] (MINOCIN) 09-30 capsule by Col lege 100 MG 00:00: 00:00 mouth two of capsule 00 :00 times Medicin daily. e apixaban 2021-0 2021- No 5mg Q.5D Take [address] (ELIQUIS) 5 09-30 tablet (5 [facility]ie kes mg Tab 00:00: 23:59 mg total) Medic al tablet 00 :00 by mouth 2 Center (two) times daily for 30 days. apixaban 2021-0 2021- No 5mg Q.5D Take [address] (ELIQUIS) 5 09-30- tablet (5 Laurie kes mg Tab 00:00: 23:59 mg total) Medic al tablet 00 :00 by mouth 2 Center (two) times daily for 30 days. apixaban 2021-0 2021- No 5mg Q.5D Take [address] (ELIQUIS) 5 09-30 tablet (5 Laurie kes mg Tab 00:00: 23:59 mg total) Medic al tablet 00 :00 by mouth 2 Center (two) times daily for 30 days. mINOCYCLine 2021-0 202- No 100mg Take [address] (MINOCIN,DY 09-30 capsule Luke s NACIN) 100 00:00: 23:59 (100 mg Med ical MG capsule 00 :00 total) by Cent er mouth every 12 (twelve) hours for 5 days. mINOCYCLine 2-0 2022- No 100mg Take [address] (MINOCIN,DY 09-30 capsule Luke s NACIN) 100 00:00: 23:59 (100 mg Med ical MG capsule 00 :00 total) by Cent er mouth every 12 (twelve) hours for 5 days. mINOCYCLine 2021- No 100mg Take [address] (MINOCIN,DY 8-04 08-09 capsule Luke s NACIN) 100 00:00: 23:59 (100 mg Med ical MG capsule 00 :00 total) by Cent er mouth every 12 (twelve) hours for 5 days. Apremilast Yes Take by [facility] (OTEZLA) 30 7-28 mouth. Colleg e MG TABS 13:20: of 25 Medicin e furosemide Yes 40mg Take 40 mg [facility] (LASIX) 40 7-28 by mouth Colle ge MG tablet 13:20: daily. of 02 Medicin e glipiZIDE Yes 10mg Take 10 mg [facility] (GLUCOTROL) 09-23 by mouth Yessica ege 10 MG CR [...] 10 MG 00:00: nightly. Medical tablet 00 Center rosuvastati Yes 10mg QD Take [address] n (CRESTOR) 7-13 by mouth Luke s 10 MG 00:00: nightly. Medical tablet 00 Center rosuvastati Yes 10mg QD Take [address] n (CRESTOR) 7-13 by mouth Luke s 10 MG 00:00: nightly. Medical tablet 00 [place] allopurinol Yes TAKE 1 [facility] (ZYLOPRIM) [...] MG 00:00: mouth Medical tablet 00 daily. [place] allopurinoL Yes 300mg QD Take [address] (ZYLOPRIM) 7-11 mg by [facility] 300 MG 00:00: mouth Medical tablet 00 daily. [place] allopurinoL Yes 300mg QD Take [address] (ZYLOPRIM) 7-11 mg by [facility] 300 MG 00:00: mouth Medical tablet 00 daily. [place] omeprazole Yes TAKE 1 [facility] (PRILOSEC) 6-29 CAPSULE BY Col lege 40 MG 00:00: MOUTH of capsule 00 EVERY DAY Medicin e omeprazole Yes 40mg QD Take [address] (PriLOSEC) 6-29 by mouth [facility] 40 MG 00:00: daily. Medical capsule 00 [place] omeprazole Yes TAKE 1 [facility] (PRILOSEC) [...] 40 MG 00:00: daily. Medical capsule 00 [place] omeprazole Yes 40mg QD Take [address] (PriLOSEC) 6-29 by mouth [facility] 40 MG 00:00: daily. Medical capsule 00 [place] metoprolol Yes 100mg QD Take [address] succinate 6-24 mg by [facility]ukes (TOPROL-XL) 00:00: mouth Medic al 100 MG 24 00 daily. Center hr tablet metoprolol 2021-0 Yes 100mg 100 mg [facility] (TOPROL-XL) 6-24 daily. Colleg e 100 MG XL 00:00: Take 1/2 of tablet 00 tablet Medicin daily e lisinopril 2021-0 Yes TAKE 1 [facility] (PRINIVIL, 6-24 TABLET BY Yessica CRANE) 20 00:00: MOUTH of MG tablet 00 EVERY DAY Medic in e metoprolol 2021-0 Yes TAKE 1 [facility] (TOPROL-XL) 6-24 TABLET BY Col lege 100 MG XL 00:00: MOUTH of tablet 00 EVERY DAY Medicin e metoprolol 2021-0 Yes TAKE 1 [facility] (TOPROL-XL) 6-24 TABLET BY Col lege 100 MG XL 00:00: MOUTH of tablet 00 EVERY DAY Medicin e metoprolol 2021-0 Yes 100mg QD Take [address] succinate 6-24 mg by [facility]ukes (TOPROL-XL) 00:00: mouth Medic al 100 MG 24 00 daily. Center hr tablet metoprolol 2-0 Yes 100mg QD Take [address] succinate 6-24 mg by [facility]ukes (TOPROL-XL) 00:00: mouth Medic al 100 MG 24 00 daily. Center hr tablet lisinopriL 2-0 2022- No 20mg QD Take [address] (PRINIVIL,Z 6-20 10-04 by mouth Bakari es ESTRIL) 20 00:00: 00:00 daily. Medi carey MG tablet 00 :00 Center lisinopriL 2-0 2022- No 20mg QD Take [address] (PRINIVIL,Z 6-20 10-04 by mouth Bakari es ESTRIL) 20 00:00: 00:00 daily. Medi carey MG tablet 00 :00 Center lisinopriL 2-0 2022- No 20mg QD Take [address] (PRINIVIL,Z 6-20 10-04 by mouth Bakari es ESTRIL) 20 00:00: 00:00 daily. Medi carey MG tablet 00 :00 Center gabapentin 2-0 Yes Q.5D Take by [facility] (NEURONTIN) [...] IN THE EVENING FOR 90 DAYS gabapentin 2021- Yes TAKE 1 [facility] (NEURONTIN) 6-23 CAPSULE IN Co llege 300 MG 00:00: THE of capsule 00 MORNING Medicin AND 2 e CAPSULES IN THE EVENING FOR 90 DAYS gabapentin 2021-0 Yes Q.5D Take by [facility] (NEURONTIN) 6-23 mouth 2 [facility] 300 MG 00:00: (two) Medical capsule 00 times Center daily. gabapentin 2021- Yes Q.5D Take by [facility] (NEURONTIN) 6-23 mouth 2 [facility] 300 MG 00:00: (two) Medical capsule 00 times Center daily. liraglutide Yes 1.8mg QD Inject 1.[address] (Victoza 6-18 mg Lukes 2-Malvin) 0.6 00:00: subcutaneo M edical mg/0.1 mL 00 usly Center (18 mg/3 daily. mL) syringe VICTOZA 18 Yes INJECT 1.8 [facility] MG/3ML SOPN 6-18 MG [place] 00:00: SUBCUTANEO of 00 USLY EVERY Medicin DAY e VICTOZA 18 Yes INJECT 1.8 [facility] MG/3ML SOPN 6-18 MG [place] 00:00: SUBCUTANEO of 00 USLY EVERY Medicin DAY e VICTOZA 18 Yes INJECT 1.8 [facility] MG/3ML SOPN 6-18 MG [place] 00:00: SUBCUTANEO of 00 USLY EVERY Medicin [...] usly Center (18 mg/3 daily. mL) syringe Levemir Yes 60U Q.5D Inject 60 CHI [...] 100 UNIT/ML A DAY e SOPN Levemir Yes 60U Q.5D Inject 60 CHI [...] injection daily. ARNUITY 0 Yes INHALE 1 [facility] ELLIPTA 100 5-23 PUFF BY Colle ge MCG/ACT 00:00: MOUTH of AEPB 00 EVERY DAY Medicin 90 e ARNUITY 2021-0 Yes INHALE 1 [facility] ELLIPTA 100 5-23 PUFF BY Colle ge MCG/ACT 00:00: MOUTH of AEPB 00 EVERY DAY Medicin 90 e ARNUITY 2021-0 Yes INHALE 1 [facility] ELLIPTA 100 5-23 PUFF BY Colle ge MCG/ACT 00:00: MOUTH of AEPB 00 EVERY DAY Medicin 90 e amLODIPine 2021-0 Yes 10mg Q.[id number] Take [address] (NORVASC) 5-16 [id number] by mouth 3 [facility] 10 MG 00:00: 3D (three) Medical tablet 00 times Center daily. hydrALAZINE 2022-0 Yes 100mg Q.[id number] Take [address] (APRESOLINE 5-16 [id number] mg by L ukes ) 100 MG 00:00: 3D mouth 3 Medica l tablet 00 (three) Center times daily. amlodipine 2021-0 Yes 10mg Take 10 mg [facility] (NORVASC) 5-16 by mouth Colleg e 10 MG 00:00: daily. of tablet 00 Medicin e hydrALAZINE 2021-0 Yes TAKE 1 [facility] [...] THREE Medicin TIMES A e DAY amLODIPine 2-0 Yes 10mg Q.[id number] Take [address] (NORVASC) 5-16 [id number] by mouth 3 [facility] 10 MG 00:00: 3D (three) Medical tablet 00 times Center daily. hydrALAZINE 2022-0 Yes 100mg Q.[id number] Take [address] (APRESOLINE 5-16 [id number] mg by L ukes ) 100 MG 00:00: 3D mouth 3 Medica l tablet 00 (three) Center times daily. amLODIPine 2022-0 Yes 10mg Q.[id number] Take [address] (NORVASC) 5-16 [id number] by mouth 3 [facility] 10 MG 00:00: 3D (three) Medical tablet 00 times Center daily. hydrALAZINE 2021-0 Yes 100mg Q.[id number] Take [address] (APRESOLINE 5-16 [id number] mg by L ukes ) 100 MG 00:00: 3D mouth 3 Medica l tablet 00 (three) Center times daily. baclofen 2021-0 Yes 10mg QD [address] (LIORESAL) 5-03 nightly. [facility] 10 MG 00:00: Medical tablet 00 [place] baclofen 0 Yes TAKE 1 [facility] (LIORESAL) 5-03 TABLET BY Yessica ege 10 MG 00:00: MOUTH of tablet 00 EVERY Medicin EVENING e NEEDED FOR SPASMS baclofen 0 Yes TAKE 1 [facility] (LIORESAL) 5-03 TABLET BY Yessica ege 10 MG 00:00: MOUTH of tablet 00 EVERY Medicin EVENING e NEEDED FOR SPASMS baclofen 0 Yes TAKE 1 [facility] (LIORESAL) 5-03 TABLET BY Yessica ege 10 MG 00:00: MOUTH of tablet 00 EVERY Medicin EVENING e NEEDED FOR SPASMS baclofen 2021-0 Yes 10mg QD [address] (LIORESAL) 5-03 nightly. [facility] 10 MG 00:00: Medical tablet 00 [place] baclofen 0 Yes 10mg QD [address] (LIORESAL) 5-03 nightly. [facility] 10 MG 00:00: Medical tablet 00 [place] calcium-vit 0 Yes 1 tab, PO, Memoria dugan D 600 4-19 TID, 0 l mg-200 15:17: Refill(s) n units oral 00 tablet calcium-vit 2021-0 Yes 1 tab, PO, Memoria dugan D 600 4-19 TID, 0 l mg-200 15:17: Refill(s) n units oral 00 tablet calcium-vit 2021-0 Yes 1 tab, PO, Memoria dugan D 600 4-19 TID, 0 l mg-200 15:17: Refill(s) n units oral 00 tablet iron 0 Yes 325 mg = 1 [facility] sulfate 4-19 tab, PO, l (ferrous 15:16: TID, 0 [place] sulfate) 00 Refill(s) 325 mg oral tablet magnesium 2021-0 Yes 250 mg = 1 Me moria gluconate 4-19 tab, PO, l 250 mg oral 15:16: BID, # 60 [facility] tablet 00 tab, 0 Refill(s) iron 0 Yes 325 mg = 1 [facility]oria sulfate 4-19 tab, PO, l (ferrous 15:16: TID, 0 [place] sulfate) 00 Refill(s) 325 mg oral tablet magnesium 0 Yes 250 mg = 1 Me [facility]ia gluconate 4-19 tab, PO, l 250 mg oral 15:16: BID, # 60 [facility] tablet 00 tab, 0 Refill(s) iron 0 Yes 325 mg = 1 [facility] sulfate 4-19 tab, PO, l (ferrous 15:16: TID, 0 [place] sulfate) 00 Refill(s) 325 mg oral tablet [...] cap, PO, l oral 15:15: Daily, 0 [place] capsule 00 Refill(s) Centrum Yes 1 tab, PO, Car osman Silver oral 4-19 Daily, # l tablet 15:15: 90 tab, 0 n 00 Refill(s) Ab Low Yes 81 mg = 1 Mem oria Dose 81 mg 4-19 tab, PO, l oral 15:15: Daily, 0 [place] delayed 00 Refill(s) release tablet Fish Oil Yes 1,000 mg = Mem oria 1000 mg 4-19 1 cap, PO, l oral 15:15: Daily, 0 [place] capsule 00 Refill(s) Centrum 2021-0 Yes 1 tab, PO, Car osman Silver oral 4-19 Daily, # l tablet 15:15: 90 tab, 0 n 00 Refill(s) Ab Low 0 Yes 81 mg = 1 Mem oria Dose 81 mg 4-19 tab, PO, l oral 15:15: Daily, 0 [place] delayed 00 Refill(s) release tablet Fish Oil 0 Yes 1,000 mg = Mem oria 1000 mg 19 1 cap, PO, l oral 15:15: Daily, 0 [place] capsule 00 Refill(s) amLODIPine 2021-0 Yes 10 mg = 1 Me moria 10 mg oral 4-19 tab, PO, l tablet 15:14: Daily, # [place] 00 90 tab, 1 Refill(s) hydrALAZINE 2021-0 Yes 100 mg = 1 Memoria 100 mg oral 4-19 tab, PO, l tablet 15:14: TID, # 90 n 00 tab, 3 Refill(s) furosemide 2021-0 Yes 40 mg = 1 Me moria 40 mg oral 4-19 tab, PO, l tablet 15:14: Daily, # [place] 00 90 tab, 1 Refill(s) amLODIPine 2021-0 Yes 10 mg = 1 Me moria 10 mg oral 4-19 tab, PO, l tablet 15:14: Daily, # [place] 00 90 tab, 1 Refill(s) hydrALAZINE 2021-0 Yes 100 mg = 1 Memoria 100 mg oral 4-19 tab, PO, l tablet 15:14: TID, # 90 n 00 tab, 3 Refill(s) furosemide 2021-0 Yes 40 mg = 1 Me moria 40 mg oral 4-19 tab, PO, l tablet 15:14: Daily, # [place] 00 90 tab, 1 Refill(s) amLODIPine 2021-0 Yes 10 mg = 1 Me moria 10 mg oral 4-19 tab, PO, l tablet 15:14: Daily, # [place] 00 90 tab, 1 Refill(s) hydrALAZINE 2021-0 Yes 100 mg = 1 Memoria 100 mg oral 4-19 tab, PO, l tablet 15:14: TID, # 90 n 00 tab, 3 Refill(s) furosemide Yes 40 mg = 1 Me moria 40 mg oral 4-19 tab, PO, l tablet 15:14: Daily, # [place] 00 90 tab, 1 Refill(s) Otezla 30 Yes 30 mg = 1 Mem oria mg oral 4-19 tab, PO, l tablet 15:13: BID, 0 [place] 00 Refill(s) Otezla 30 Yes 30 mg = 1 Mem oria mg oral 4-19 tab, PO, l tablet 15:13: BID, 0 [place] 00 Refill(s) Otezla 30 Yes 30 mg = 1 Mem oria mg oral 4-19 tab, PO, l tablet 15:13: BID, 0 [place] 00 Refill(s) baclofen Yes = 1 tab, Me moria mg oral 3-16 PO, QPM, l tablet 14:40: PRN [place] 00 NEEDED FOR SPASMS, # 90 tab, 2 Refill(s), Pharmacy: [facility] [id number] baclofen Yes = 1 tab, Me moria mg oral 3-16 PO, QPM, l tablet 14:40: PRN [place] 00 NEEDED FOR SPASMS, # 90 tab, 2 Refill(s), Pharmacy: [facility] [id number] baclofen Yes = 1 tab, Me moria mg oral 3-16 PO, QPM, l tablet 14:40: PRN [place] 00 NEEDED FOR SPASMS, # 90 tab, 2 Refill(s), Pharmacy: [facility] [id number] baclofen No = 1 tab, Me moria mg oral 9-01 PO, QPM, l tablet 14:41: PRN [place] 00 NEEDED FOR SPASMS, # 90 tab, 2 Refill(s), Pharmacy: [facility] [id number] baclofen No = 1 tab, Me moria mg oral 9-01 PO, QPM, l tablet 14:41: PRN [place] 00 NEEDED FOR SPASMS, # 90 tab, 2 Refill(s), Pharmacy: [facility] [id number] baclofen No = 1 tab, Me moria mg oral 9-01 PO, QPM, l tablet 14:41: PRN [place] 00 NEEDED FOR SPASMS, # 90 tab, 2 Refill(s), Pharmacy: [facility] [id number] baclofen No 10 mg = 1 M emoria mg oral 6-10 tab, PO, l tablet 16:32: QPM, PRN [place] 00 Spasms, # 30 tab, 2 Refill(s), Pharmacy: [id number] baclofen No 10 mg = 1 M emoria mg oral 6-10 tab, PO, l tablet 16:32: QPM, PRN [place] 00 Spasms, # 30 tab, 2 Refill(s), Pharmacy: [id number] baclofen No 10 mg = 1 M emoria mg oral 6-10 tab, PO, l tablet 16:32: QPM, PRN [place] 00 Spasms, # 30 tab, 2 Refill(s), Pharmacy: [id number] Levemir Yes 130, Memoria FlexPen 4-16 SUB-Q, 0 l 15:32: Refill(s) [place] 00 Levemir 0 Yes 130, Memoria FlexPen 4-16 SUB-Q, 0 l 15:32: Refill(s) Levemir 0 Yes 130, Memoria FlexPen 4-16 SUB-Q, 0 l 15:32: Refill(s) [place] 00 lisinopril 2020-0 Yes 20 mg = 1 Me moria 20 mg oral 4-17 tab, PO, l tablet 15:50: Daily, # [place] 00 30 tab, 0 Refill(s) lisinopril 2020-0 Yes 20 mg = 1 Me moria 20 mg oral 4-17 tab, PO, l tablet 15:50: Daily, # [place] 00 30 tab, 0 Refill(s) lisinopril 2020-0 Yes 20 mg = 1 Me moria 20 mg oral 4-17 tab, PO, l tablet 15:50: Daily, # [place] 00 30 tab, 0 Refill(s) Centrum Centrum No Centrum Silver - Silver [...] t} 50 MCG (1999 UT) (1999 UT) (1999 UT) Fish Oil Fish Oil No 1{capsu QD [...] t} 50 MCG (1999 UT) (1999 UT) (1999 UT) BD Pen BD Pen No TID BD [...] BID Otezla 30 MG MG t} MG Levemir Levemir Yes Yann 60 units Com mon FlexTouch FlexTouch [facility] - [facility] BD Pen BD Pen No BD Pen [...] 20 MG 20 MG t} 20 MG OneTouch OneTouch No BID OneTouch Ultra Blue Ultra Blue Ultra Blue - - - Ab Ab No 1{table QD Ab Aspirin EC Aspirin EC t} Aspirin EC Low Dose 81 Low Dose 81 Low Dose MG MG 81 MG Arnuity Arnuity No 1{puff} QD Arnuity Ellipta 100 Ellipta 100 Ellipta MCG/ACT MCG/ACT 100 MCG/ACT amLODIPine amLODIPine No QD amLODIPine Besylate 5 [...] MCG t} 50 MCG (1999) (1999) (1999) Allopurinol Allopurinol No QD Allopurino [...] MCG t} 50 MCG (1999) (1999) (1999) Lisinopril Lisinopril No 1{table QD [...] U/F MM MM 31G X 5 MM Eliquis 5 Eliquis 5 Eliquis 5 mg 5 mg mg 5 mg 11-05 mg 5 mg 00:00 :00 Immunizations Ordered Immunization Filled Immunization Date Status Commen ts Source Name Name FLUZONE HIGH DOSE FLUZONE HIGH DOSE 2022-01-04 [facility]pleted [facility] OVER [facility] OVER 65 10:21:00 [facility] FLUZONE HIGH DOSE FLUZONE HIGH DOSE 2022-01-04 Completed [facility] OVER 65 OVER 65 10:21:00 [facility] FLUZONE HIGH DOSE FLUZONE HIGH DOSE 2022-01-04 Completed [facility] OVER 65 OVER 65 10:21:00 [facility] FLUZONE HIGH DOSE FLUZONE HIGH DOSE 2022-01-04 Completed [facility] OVER 65 OVER 65 10:21:00 [facility] FLUZONE HIGH DOSE FLUZONE HIGH DOSE 2022-01-04 Completed [facility] OVER 65 OVER 65 10:21:00 [facility] FLUZONE HIGH DOSE FLUZONE HIGH DOSE 2022-01-04 Completed [facility] OVER 65 OVER 65 10:21:00 [facility] FLUZONE HIGH DOSE FLUZONE HIGH DOSE 2022-01-04 Completed [facility] OVER 65 OVER 65 10:21:00 [facility] COVID-19 Moderna COVID-19 2021-01-25 Com[facility] (Low Dose Vaccine (Low Dose 08:40:00 - [facility] Booster) Booster) [facility] [address] [facility]-25 [facility]ine (Low Dose Vaccine (Low Dose 08:40:00 - [facility] Booster) Booster) [facility] [address] COVID19 2021-01-25 Completed [facility] Vaccine (Low Dose Vaccine (Low Dose 08:40:00 - [facility] Booster) Booster) [facility] [address] [facility] 2021-01-25 [facility] Vaccine (Low Dose Vaccine (Low Dose 08:40:00 - [facility] Booster) Booster) [facility] [address] [facility] 2021-01-25 Com[facility] Vaccine (Low Dose Vaccine (Low Dose 08:40:00 - [facility] Booster) Booster) [facility] [address] [facility] 2021-01-25 Com[facility] Vaccine (Low Dose Vaccine (Low Dose 08:40:00 - [facility] Booster) Booster) [facility] [address] [facility] 2021-01-25 Com[facility] Vaccine (Low Dose Vaccine (Low Dose 08:40:00 - [facility] Booster) Booster) [facility] [address] [facility] 2021-01-25 Com[facility] Vaccine (Low Dose Vaccine (Low Dose 08:40:00 - [facility] Booster) Booster) [facility] [address] [facility] 2021-01-25 Com[facility] Vaccine (Low Dose Vaccine (Low Dose 08:40:00 - [facility] Booster) Booster) [facility] [address] [facility] 2021-01-25 Com[facility] Vaccine (Low Dose Vaccine (Low Dose 08:40:00 - [facility] Booster) Booster) [facility] [address] COVID19 2021-01-25 Completed [facility] Vaccine (Low Dose Vaccine (Low Dose 08:40:00 - [facility] Booster) Booster) [facility] [address] [facility] 2021-01-25 Com[facility] Vaccine (Low Dose Vaccine (Low Dose 08:40:00 - [facility] Booster) Booster) [facility] COVID19 [facility] COVID-19 2021-01-25 Completed [facility] Vaccine (Low Dose Vaccine (Low Dose 08:40:00 - [facility] Booster) Booster) [facility] COVID19 [facility] COVID19 2021-01-25 Completed [facility] Vaccine (Low Dose Vaccine (Low Dose 08:40:00 - [facility] Booster) Booster) [facility] COVID19 [facility] COVID19 2021-01-25 Completed [facility] Vaccine (Low Dose Vaccine (Low Dose 08:40:00 - [facility] Booster) Booster) [facility] FLUZONE HIGH DOSE FLUZONE HIGH DOSE 2020-11-24 Completed [facility] OVER 65 OVER 65 09:39:00 [facility] FLUZONE HIGH DOSE FLUZONE HIGH DOSE 2020-11-24 Completed [facility] OVER 65 OVER 65 09:39:00 [facility] FLUZONE HIGH DOSE FLUZONE HIGH DOSE 2020-11-24 Completed [facility] OVER 65 OVER 65 09:39:00 [facility] FLUZONE HIGH DOSE FLUZONE HIGH DOSE 2020-11-24 Completed [facility] OVER 65 OVER 65 09:39:00 [facility] FLUZONE HIGH DOSE FLUZONE HIGH DOSE 2020-11-24 Completed [facility] OVER 65 OVER 65 09:39:00 [facility] FLUZONE HIGH DOSE FLUZONE HIGH DOSE 2020-11-24 Completed [facility] OVER 65 OVER 65 09:39:00 [facility] FLUZONE HIGH DOSE FLUZONE HIGH DOSE 2020-11-24 Completed [facility] OVER 65 OVER 65 09:39:00 [facility] FLUZONE HIGH DOSE FLUZONE HIGH DOSE 2020-11-24 Completed [facility] OVER 65 OVER 65 09:39:00 [facility] FLUZONE HIGH DOSE FLUZONE HIGH DOSE 2020-11-24 Completed [facility] OVER 65 OVER 65 09:39:00 [facility] FLUZONE HIGH DOSE FLUZONE HIGH DOSE 2020-11-24 Completed [facility] OVER 65 OVER 65 09:39:00 - [facility] FLUZONE HIGH DOSE FLUZONE HIGH DOSE 2020-11-24 Completed [facility] OVER 65 OVER 65 09:39:00 - [facility] FLUZONE HIGH DOSE FLUZONE HIGH DOSE 2020-11-24 Completed [facility] OVER 65 OVER 65 09:39:00 - [facility] FLUZONE HIGH DOSE FLUZONE HIGH DOSE 2020-11-24 Completed [facility] OVER 65 OVER 65 09:39:00 - [facility] FLUZONE HIGH DOSE FLUZONE HIGH DOSE 2020-11-24 Completed [facility] OVER 65 OVER 65 09:39:00 - [facility] FLUZONE HIGH DOSE FLUZONE HIGH DOSE 2020-11-24 Completed [facility] OVER 65 OVER 65 09:39:00 - [facility] FLUZONE HIGH DOSE FLUZONE HIGH DOSE 2020-11-24 Completed [facility] OVER 65 OVER 65 09:39:00 - [facility] FLUZONE HIGH DOSE FLUZONE HIGH DOSE 2020-11-24 Completed [facility] OVER 65 OVER 65 09:39:00 - [facility] FLUZONE HIGH DOSE FLUZONE HIGH DOSE 2020-11-24 Completed [facility] OVER 65 OVER 65 09:39:00 - [facility] Moderna COVID-19 Moderna COVID-19 2020-04-27 Completed [facility] Vaccine Vaccine 10:19:00 - [facility] Moderna COVID-19 Moderna COVID-19 2020-04-27 Completed [facility] Vaccine Vaccine 10:19:00 - [facility] Moderna COVID-19 Moderna COVID-19 2020-04-27 Completed [facility] Vaccine Vaccine 10:19:00 - [facility] Moderna COVID-19 Moderna COVID-19 2020-04-27 Completed [facility] Vaccine Vaccine 10:19:00 - [facility] Moderna COVID-19 Moderna COVID-19 2020-04-27 Completed [facility] Vaccine Vaccine 10:19:00 - [facility] Moderna COVID-19 Moderna COVID-19 2020-04-27 Completed [facility] Vaccine Vaccine 10:19:00 - [facility] Moderna COVID-19 Moderna COVID-19 2020-04-27 Completed [facility] Vaccine Vaccine 10:19:00 - [facility] Moderna COVID-19 Moderna COVID-19 2020-04-27 Completed [facility] Vaccine Vaccine 10:19:00 - [facility] Moderna COVID-19 Moderna COVID-19 2020-04-27 Completed [facility] Vaccine Vaccine 10:19:00 - [facility] Moderna COVID-19 Moderna COVID-19 2020-04-27 Completed [facility] Vaccine Vaccine 10:19:00 - [facility] Moderna COVID-19 Moderna COVID-19 2020-04-27 Completed [facility] Vaccine Vaccine 10:19:00 - [facility] Moderna COVID-19 Moderna COVID-19 2020-04-27 Completed [facility] Vaccine Vaccine 10:19:00 - [facility] Moderna COVID-19 Moderna COVID-19 2020-04-27 Completed [facility] Vaccine Vaccine 10:19:00 - [facility] Moderna COVID-19 Moderna COVID-19 2020-04-27 Completed [facility] Vaccine Vaccine 10:19:00 - [facility] Moderna COVID-19 Moderna COVID-19 2020-04-27 Completed [facility] Vaccine Vaccine 10:19:00 - [facility] Moderna COVID-19 Moderna COVID-19 2020-04-27 Completed [facility] Vaccine Vaccine 10:19:00 - [facility] Moderna COVID-19 Moderna COVID-19 2020-04-27 Completed [facility] Vaccine Vaccine 10:19:00 - [facility] Moderna COVID-19 Moderna COVID-19 2020-04-27 Completed [facility] Vaccine Vaccine 10:19:00 - [facility] Moderna COVID-19 Moderna COVID-19 2020-03-30 Completed [facility] Vaccine Vaccine 10:19:00 - [facility] Moderna COVID-19 Moderna COVID-19 2020-03-30 Completed [facility] Vaccine Vaccine 10:19:00 - [facility] Moderna COVID-19 Moderna COVID-19 2020-03-30 Completed [facility] Vaccine Vaccine 10:19:00 - [facility] Moderna COVID-19 Moderna COVID-19 2020-03-30 Completed [facility] Vaccine Vaccine 10:19:00 - [facility] Moderna COVID-19 Moderna COVID-19 2020-03-30 Completed [facility] Vaccine Vaccine 10:19:00 - [facility] Moderna COVID-19 Moderna COVID-19 2020-03-30 Completed [facility] Vaccine Vaccine 10:19:00 - [facility] Moderna COVID-19 Moderna COVID-19 2020-03-30 Completed [facility] Vaccine Vaccine 10:19:00 - [facility] Moderna COVID-19 Moderna COVID-19 2020-03-30 Completed [facility] Vaccine Vaccine 10:19:00 - [facility] Moderna COVID-19 Moderna COVID-19 2020-03-30 Completed [facility] Vaccine Vaccine 10:19:00 - [facility] Moderna COVID-19 Moderna COVID-19 2020-03-30 Completed [facility] Vaccine Vaccine 10:19:00 - [facility] Moderna COVID-19 Moderna COVID-19 2020-03-30 Completed [facility] Vaccine Vaccine 10:19:00 - [facility] Moderna COVID-19 Moderna COVID-19 2020-03-30 Completed [facility] Vaccine Vaccine 10:19:00 - [facility] Moderna COVID-19 Moderna COVID-19 2020-03-30 Completed [facility] Vaccine Vaccine 10:19:00 - [facility] Moderna COVID-19 Moderna COVID-19 2020-03-30 Completed [facility] Vaccine Vaccine 10:19:00 - [facility] Moderna COVID-19 Moderna COVID-19 2020-03-30 Completed [facility] Vaccine Vaccine 10:19:00 - [facility] Moderna COVID-19 Moderna COVID-19 2020-03-30 Completed [facility] Vaccine Vaccine 10:19:00 - [facility] Moderna COVID-19 Moderna COVID-19 2020-03-30 Completed [facility] Vaccine Vaccine 10:19:00 - [facility] Moderna COVID-19 Moderna COVID-19 2020-03-30 Completed [facility] Vaccine Vaccine 10:19:00 - [facility] FluAD FluAD 2019-11-20 Completed [facility] 09:54:00 - [facility] FluAD FluAD 2019-11-20 Completed [facility] 09:54:00 - [facility] FluAD FluAD 2019-11-20 Completed [facility] 09[facility]54:00 - [facility] FluAD FluAD 2019-11-20 Completed [facility] 09:54:00 - [facility] FluAD FluAD 2019-11-20 Completed [facility] 09:54:00 - [facility] FluAD FluAD 2019-11-20 Completed [facility] 09:54:00 - [facility] FluAD FluAD 2019-11-20 Completed [facility] 09:54:00 - [facility] FluAD FluAD 2019-11-20 Completed [facility] 09:54:00 - [facility] FluAD FluAD 2019-11-20 Completed [facility] 09:54:00 - [facility] FluAD FluAD 2019-11-20 Completed [facility] 09:54:00 - [facility] FluAD FluAD 2019-11-20 Completed [facility] 09:54:00 - [facility] FluAD FluAD 2019-11-20 Completed [facility] 09:54:00 - [facility] FluAD FluAD 2019-11-20 Completed [facility] 09:54:00 - [facility] FluAD FluAD 2019-11-20 Completed [facility] 09:54:00 - [facility] FluAD FluAD 2019-11-20 Completed [facility] 09:54:00 - [facility] FluAD FluAD 2019-11-20 Completed [facility] 09:54:00 - [facility] FluAD FluAD 2019-11-20 Completed [facility] 09:54:00 - [facility] FluAD FluAD 2019-11-20 Completed [facility] 09:54:00 - [facility] Pneumovax (PPSV23) Pneumovax (PPSV23) 2017-02-27 Completed [facility] 10:19:00 - [facility] Pneumovax (PPSV23) Pneumovax (PPSV23) 2017-02-27 Completed [facility] 10:19:00 - [facility] Pneumovax (PPSV23) Pneumovax (PPSV23) 2017-02-27 Completed [facility] 10:19:00 - [facility] Pneumovax (PPSV23) Pneumovax (PPSV23) 2017-02-27 Completed [facility] 10:19:00 - [facility] Pneumovax (PPSV23) Pneumovax (PPSV23) 2017-02-27 Completed [facility] 10:19:00 - [facility] Pneumovax (PPSV23) Pneumovax (PPSV23) 2017-02-27 Completed [facility] 10:19:00 - [facility] Pneumovax (PPSV23) Pneumovax (PPSV23) 2017-02-27 Completed [facility] 10:19:00 - [facility] Pneumovax (PPSV23) Pneumovax (PPSV23) 2017-02-27 Completed [facility] 10:19:00 [facility] Pneumovax (PPSV23) Pneumovax (PPSV23) 2017-02-27 Completed [facility] 10:19:00 - [facility] Pneumovax (PPSV23) Pneumovax (PPSV23) 2017-02-27 Completed [facility] 10:19:00 [facility] Pneumovax (PPSV23) Pneumovax (PPSV23) 2017-02-27 Completed [facility] 10:19:00 [facility] Pneumovax (PPSV23) Pneumovax (PPSV23) 2017-02-27 Completed [facility] 10:19:00 [facility] Pneumovax (PPSV23) Pneumovax (PPSV23) 2017-02-27 Completed [facility] 10:19:00 - [facility] Pneumovax (PPSV23) Pneumovax (PPSV23) 2017-02-27 Completed [facility] 10:19:00 - [facility] Pneumovax (PPSV23) Pneumovax (PPSV23) 2017-02-27 Completed [facility] 10:19:00 - [facility] Pneumovax (PPSV23) Pneumovax (PPSV23) 2017-02-27 Completed [facility] 10:19:00 - [facility] Pneumovax (PPSV23) Pneumovax (PPSV23) 2017-02-27 Completed [facility] 10:19:00 - [facility] Pneumovax (PPSV23) Pneumovax (PPSV23) 2017-02-27 Completed [facility] 10:19:00 [facility] Vital Signs Vital Name Observation Time Observation Value Comments Source Systolic blood 2022-02-07 22:12:00 165 mm[Hg] [facility] pressure Medicine Diastolic blood 2022-02-07 22:12:00 70 mm[Hg] [facility] pressure Medicine Heart rate 2022-02-07 22:11:00 75 /min [facility] Body height 2022-02-07 22:11:00 198.1 cm [facility] Body weight 2022-02-07 22:11:00 166.924 kg [facility] BMI 2022-02-07 22:11:00 42.53 kg/m2 [facility] height 2022-01-19 13:30:00 77.5 [in_i] [facility] weight 2022-01-19 13:30:00 366.2 [lb_av] [facility] temperature 2022-01-19 13:30:00 97.2 [degF] [facility] bmi 2022-01-19 13:30:00 42.86 kg/m2 [facility] oximetry 2022-01-19 13:30:00 98 % [facility] respiratory rate 2022-01-19 13:30:00 18 /min [facility] blood pressure 2022-01-19 13:30:00 138 mm[Hg] [facility] - systolic [facility] blood pressure 2022-01-19 13:30:00 70 mm[Hg] [facility] - diastolic [facility] height 2022-01-04 10:00:00 77.5 [in_i] [facility] weight 2022-01-04 10:00:00 365.3 [lb_av] [facility] temperature 2022-01-04 10:00:00 97.9 [degF] [facility] bmi 2022-01-04 10:00:00 42.76 kg/m2 [facility] oximetry 2022-01-04 10:00:00 98 % [facility] respiratory rate 2022-01-04 10:00:00 18 /min [facility] on [facility] blood pressure 2022-01-04 10:00:00 137 mm[Hg] [facility] - systolic [facility] blood pressure 2022-01-04 10:00:00 81 mm[Hg] [facility] diastolic [facility] Systolic blood 2021-11-11 18:30:00 144 mm[Hg] [facility] pressure Medicine Diastolic blood 2021-11-11 18:30:00 66 mm[Hg] [facility] pressure Medicine Heart rate 2021-11-11 18:25:00 63 /min [facility] Body height 2021-11-11 18:25:00 200.7 cm [facility] Body weight 2021-11-11 18:25:00 [facility] BMI 2021-11-11 18:25:00 41.23 kg/m2 [facility] height 2021-11-04 10:30:00 77.5 [in_i] [facility] weight 2021-11-04 10:30:00 365 [lb_av] [facility] temperature 2021-11-04 10:30:00 97.3 [degF] [facility] bmi 2021-11-04 10:30:00 42.72 kg/m2 [facility] oximetry 2021-11-04 10:30:00 94 % [facility] respiratory rate 2021-11-04 10:30:00 18 /min [facility] blood pressure 2021-11-04 10:30:00 122 mm[Hg] [facility] - systolic [facility] blood pressure 2021-11-04 10:30:00 76 mm[Hg] [facility] - diastolic [facility] height 2021-11-04 10:40:00 77.5 [in_i] [facility] weight 2021-11-04 10:40:00 365 [lb_av] [facility] temperature 2021-11-04 10:40:00 97.3 [degF] [facility] bmi 2021-11-04 10:40:00 42.72 kg/m2 [facility] oximetry 2021-11-04 10:40:00 94 % [facility] respiratory rate 2021-11-04 10:40:00 18 /min [facility] on [facility] blood pressure 2021-11-04 10:40:00 122 mm[Hg] [facility] - systolic [facility] blood pressure 2021-11-04 10:40:00 76 mm[Hg] [facility] - diastolic [facility] height 2021-10-04 09:50:00 80 [in_i] [facility] weight 2021-10-04 09:50:00 365.0 [lb_av] [facility] temperature 2021-10-04 09:50:00 96.9 [degF] [facility] - [facility] bmi 2021-10-04 09:50:00 40.09 kg/m2 [facility] oximetry 2021-10-04 09:50:00 97 % [facility] - [facility] respiratory rate 2021-10-04 09:50:00 18 /min [facility] blood pressure 2021-10-04 09:50:00 139 mm[Hg] [facility] - systolic [facility] blood pressure 2021-10-04 09:50:00 63 mm[Hg] [facility] - diastolic [facility] HEIGHT 2021-09-29 08:12:00 203.2 cm WEIGHT [...] kg Systolic blood 2021-09-23 18:09:00 142 mm[Hg] [facility] pressure Medicine Diastolic blood 2021-09-23 18:09:00 70 mm[Hg] [facility] Medicine Heart rate 2021-09-23 18:08:00 60 /min [facility] Body height 2021-09-23 18:08:00 203.2 cm [facility] Body weight 2021-09-23 18:08:00 167.831 kg [facility] BMI 2021-09-23 18:08:00 40.65 kg/m2 [facility] height 2021-08-31 11:20:00 80 [in_i] [facility] 2021-08-31 11:20:00 371.2 [lb_av] [facility] temperature 2021-08-31 11:20:00 97.9 [degF] Common S [facility] bmi 2021-08-31 11:20:00 40.77 kg/m2 Common S pirit [facility] oximetry 2021-08-31 11:20:00 97 % [facility] rate 2021-08-31 11:20:00 17 /min Comm on [facility] blood pressure 2021-08-31 11:20:00 132 mm[Hg] Common [facility] - systolic [facility] blood pressure 2021-08-31 11:20:00 75 mm[Hg] Common [facility] - diastolic [facility] height 2021-05-17 09:20:00 80 [in_i] Common S [facility] weight 2021-05-17 09:20:00 371.5 [lb_av] [facility] temperature 2021-05-17 09:20:00 97.8 [degF] Common S [facility] bmi 2021-05-17 09:20:00 40.81 kg/m2 Common S [facility] oximetry 2021-05-17 09:20:00 98 % Common S [facility] respiratory rate 2021-05-17 09:20:00 19 /min Comm on [facility] blood pressure 2021-05-17 09:20:00 138 mm[Hg] Common [facility] - systolic [facility] blood pressure 2021-05-17 09:20:00 68 mm[Hg] Common [facility] - diastolic [facility] height 2021-02-16 08:50:00 80 [in_i] Common [facility] weight 2021-02-16 08:50:00 378.3 [lb_av] [facility] temperature 2021-02-16 08:50:00 97.7 [degF] Common S pirit - [facility] bmi 2021-02-16 08:50:00 41.55 kg/m2 Common S pirit - [facility] oximetry 2021-02-16 08:50:00 97 % [facility] respiratory rate 2021-02-16 08:50:00 18 /min Comm on [facility] blood pressure 2021-02-16 08:50:00 133 mm[Hg] Common [facility] - systolic [facility] blood pressure 2021-02-16 08:50:00 65 mm[Hg] Common [facility] - diastolic [facility] height 2020-11-24 08:40:00 80 [in_i] Common S [facility] weight 2020-11-24 08:40:00 372.8 [lb_av] [facility] temperature 2020-11-24 08:40:00 96.8 [degF] Common S pirit [facility] bmi 2020-11-24 08:40:00 40.95 kg/m2 [facility] S pirit [facility] oximetry 2020-11-24 08:40:00 96 % [facility] respiratory rate 2020-11-24 08:40:00 20 /min Comm on [facility] blood pressure 2020-11-24 08:40:00 138 mm[Hg] Common [facility] - systolic [facility] blood pressure 2020-11-24 08:40:00 82 mm[Hg] [facility] - diastolic [facility] height 2020-11-24 09:00:00 80 [in_i] Common S pirit [facility] weight 2020-11-24 09:00:00 372.8 [lb_av] [facility] temperature 2020-11-24 09:00:00 96.8 [degF] Common S [facility] bmi 2020-11-24 09:00:00 40.95 kg/m2 Common S pirit - [facility] oximetry 2020-11-24 09:00:00 96 % Common S [facility] respiratory rate 2020-11-24 09:00:00 20 /min Comm on Spirit - [facility] blood pressure 2020-11-24 09:00:00 138 mm[Hg] Common [facility] - systolic [facility] blood pressure 2020-11-24 09:00:00 82 mm[Hg] Common [facility] - diastolic [facility] Heart rate 2021-09-30 12:01:00 92 /min [facility] Systolic blood 2021-09-30 12:00:00 153 mm[Hg] [facility] Diastolic blood 2021-09-30 12:00:00 68 mm[Hg] [facility] Body temperature 2021-09-30 12:00:00 36.17 Saumya [facility] Respiratory rate 2021-09-30 12:00:00 17 /min [facility] Oxygen saturation in 2021-09-30 12:00:00 95 /min [facility] Arterial blood by Medical Ce nter Pulse oximetry Body height 2021-09-29 08:12:00 203.2 cm [facility] Body weight 2021-09-29 08:12:00 167.831 kg [facility] BMI 2021-09-29 08:12:00 40.65 kg/m2 [facility] Systolic (mm Hg) 2021-06-15 15:07:00 Car Dawkins Diastolic (mm Hg) 2021-06-15 15:07:00 [facility] [place] [facility] 2021-06-15 15:07:00 [facility] [place] Respitory Rate 2021-06-15 15:07:00 Rigoberto Sutton Height 2021-06-15 15:07:00 203.2 cm [facility] Weight 2021-06-15 15:07:00 [facility] BMI Calculated 2021-06-15 15:07:00 Rigoberto Sutton Procedures Procedure Date / Time Performing Clinician Source Performed ELECTROCARDIOGRAM COMPLETE 2022-02-07 22:51:19 Strickman, Lilian E [facility] ELECTROCARDIOGRAM COMPLETE 2022-02-07 16:51:19 [facility] ELECTROCARDIOGRAM COMPLETE 2021-11-11 19:02:02 Lilian Deleon [facility] ELECTROCARDIOGRAM COMPLETE 2021-11-11 14:02:02 [facility] 2D ECHO W/ DOPPLER 2021-09-30 09:27:27 Lilian Deleon [facility] (CW/PW/COLOR) [facility] POCT-GLUCOSE METER 2021-09-30 06:55[facility]00 [facility] PORT[facility] / 2021-09-30 05:37:00 Joseph Rodriguez [facility] BASIC METABOLIC PANEL 2021-09-30 04:22:00 Jennifer [facility] CBC (HEMOGRAM ONLY) 2021-09-30 04:22:00 [facility]AD 2021-09-30 03:41:43 Jennifer [facility] POCT-GLUCOSE METER 2021-09-29 20:57:00 Adrienne [facility] POCT-ACT 2021-09-29 16:03:00 Adrienne [facility] POCT-GLUCOSE METER 2021-09-29 16:00:00 Adrienne [facility] ECG 12-LEAD 2021-09-29 15:42:23 Unknown, Hl7 [facility] ECG 12-LEAD 2021-09-29 15:42:23 Yuemily [facility] ECG 12-LEAD 2021-09-29 15:42:23 Unknown, Hl7 [facility] PREPARE RBC 2021-09-29 15:30:00 Adrienne [facility] POCT-ACT 2021-09-29 15:00:00 Adrienne [facility] POCT-ACT 2021-09-29 14:01:00 Adrienne Lilian [facility] IMPLANTATION, AORTIC VALVE, 2021-09-29 11:28:00 Lilian Deleon [facility] TRANSCATHETER [facility] TRANSESOPHAGEAL ECHO 2021-09-29 10:44:47 Lilian Deleon [facility] CONT WAVE PULSED DOPPLER 2021-09-29 10:23:49 Lilian Deleon [facility] COLOR-FLOW MAPPING 2021-09-29 10:23:48 Lilian Deleon [facility] ABORH, MANUAL 2021-09-29 09:00:00 Lilian Deleon [facility] CARDIAC CATH REPORT - SCAN 2021-09-29 00:00:00 ProviderEdis [facility] ELECTROCARDIOGRAM COMPLETE 2021-09-23 19:54:26 Lilian Deleon [facility] CBC W/PLT COUNT & AUTO 2021-09-23 15:11:00 Lilian Deleon [facility] COMPREHENSIVE METABOLIC 2021-09-23 15:11:[address] [facility] PANEL [facility] B-TYPE NATRIURETIC FACTOR 2021-09-23 15:11:[address]le[address] [facility] (BNP) [facility] PROTHROMBIN TIME/INR 2021-09-23 15:11:00 Lilian Deleon [facility] TYPE AND SCREEN, AUTOMATED 2021-09-23 15:11:00 Lilian Deleon [facility] CBC W/PLT COUNT & AUTO 2021-09-23 15:11:00 Lilian Deleon [facility] ELECTROCARDIOGRAM COMPLETE 2021-09-23 14:54:26 [facility] ([facility]) HEART CATH 2021-09-23 09:58:37 [facility] ([facility]) LAB 2021-09-23 09:58:37 [facility] ([facility]) DIAG \T\ IMAGING 2021-09-23 09:58:37 [facility] ([facility]) EKG 2021-09-23 09:58:37 [facility] ([facility]) CT CHEST/CARDIAC 2021-09-23 09:58:37 [facility] ([facility]) US/DOPPLER HEAD/NECK 2021-09-23 09:58:37 [facility] Plan of Care Planned Activity Planned Date Details Comments Source Future Scheduled 2022-09-[address] [facility] 00:00:00 [facility] Scre[facility] (12+) [code = Tobacco Cessation Counseling and Screening (12+)] Future Scheduled 2022-09-[address] [facility] Test 00:00:00 [facility] r Screening (12+) [code = Tobacco Cessation Counseling and Screening (12+)] Future Scheduled 2022-02-07 Screening for malignant [facility] of Test 19:20:09 neoplasm of colon Medicine (procedure) [code = 635599130] Future Scheduled 2022-02-07 Pneumococcal 65+ (1 - [facility] of Test 19:20:09 PCV) [code = Medicine Pneumococcal 65+ (1 - PCV)] Future Scheduled 2022-02-07 TETANUS SHOT (ADULT) [facility] Test 19:20:09 [code = TETANUS SHOT Medicin e (ADULT)] Future Scheduled 2022-02-07 Diabetic foot [facility] Col [facility]ge of Test 19:20:09 examination Medicine (regime/therapy) [code = 017798936] Future Scheduled 2022-02-07 ANNUAL DIABETIC [facility] of Test 19:20:09 RETINOPATHY SCREENING Medici ne [code = ANNUAL DIABETIC RETINOPATHY SCREENING] Future Scheduled 2022-02-07 BMI FOLLOW UP PLAN [facility] Test 19:20:09 [code = BMI FOLLOW UP Medici ne PLAN] Future Scheduled 2022-02-07 Hepatitis C screening [facility] of Test 19:20:09 (procedure) [code = Medicine [id number]] Future Scheduled 2022-02-07 ZOSTER VACCINE (1 of 2) [facility] of Test 19:20:09 [code = ZOSTER VACCINE Medic ine (1 of 2)] Future Scheduled 2022-02-07 FALL SCREEN [code = [facility] of Test 19:20:09 FALL SCREEN] Medicine Future Scheduled 2022-02-07 COVID-19 Vaccine (4 - [facility] of Test 19:20:09 Booster for Moderna Medicine series) [code = COVID-19 Vaccine (4 - Booster for Moderna series)] Future Scheduled 2022-02-07 FLU VACCINE > [address] [facility] of Test 19:20:09 [code = FLU VACCINE > 6 Medi cine MONTHS] Future Scheduled 2022-02-07 MEDICARE AWV (Initial) B [facility] of Test 19:20:09 [code = MEDICARE AWV Medicin e (Initial)] Future Scheduled 2021-11-11 Screening for malignant [facility] of Test 15:50:24 neoplasm of colon Medicine (procedure) [code = 821428532] Future Scheduled 2021-11-11 COVID-19 Vaccine (#1) [facility] of Test 15:50:24 [code = COVID-19 Medicine Vaccine (#1)] Future Scheduled 2021-11-11 Pneumococcal 65+ (1 - [facility] of Test 15:50:24 PCV) [code = Medicine Pneumococcal 65+ (1 - PCV)] Future Scheduled 2021-11-11 TETANUS SHOT (ADULT) [facility] of Test 15:50:24 [code = TETANUS SHOT Medicin e (ADULT)] Future Scheduled 2021-11-11 Diabetic foot [facility] of Test 15:50:24 examination Medicine (regime/therapy) [code = 297930469] Future Scheduled 2021-11-11 ANNUAL DIABETIC [facility] of Test 15:50:24 RETINOPATHY SCREENING Medici ne [code = ANNUAL DIABETIC RETINOPATHY SCREENING] Future Scheduled 2021-11-11 BMI FOLLOW UP PLAN [facility] of Test 15:50:24 [code = BMI FOLLOW UP Medici ne PLAN] Future Scheduled 2021-11-11 Hepatitis C screening [facility] of Test 15:50:24 (procedure) [code = Medicine [id number]] Future Scheduled 2021-11-11 ZOSTER VACCINE (1 of 2) [facility] of Test 15:50:24 [code = ZOSTER VACCINE Medic ine (1 of 2)] Future Scheduled 2021-11-11 MEDICARE AWV (Initial) B [facility] of Test 15:50:24 [code = MEDICARE AWV Medicin e (Initial)] Future Scheduled 2021-11-11 FALL SCREEN [code = [facility] of Test 15:50:24 FALL SCREEN] Medicine Future Scheduled 2021-11-11 FLU VACCINE > [address] [facility] of Test 15:50:24 [code = FLU VACCINE [...] [facility] 00:[facility]:00 measurement (procedure) [facility] [code = 40795112] Future Scheduled 2021-09-[address] [facility] Test 00:00:00 measurement (procedure) [facility] [code = 69666827] Future Scheduled 2021-09-[address] [facility] [facility] Test 00:00:00 measurement (procedure) [facility] [code = 81547189] Future Scheduled 2021-09-23 Screening for malignant [facility] of Test 17:50:20 neoplasm of colon Medicine (procedure) [code = 010721425] Future Scheduled 2021-09-23 Pneumococcal 65+ (1 - [facility] of Test 17:50:20 PCV) [code = Medicine Pneumococcal 65+ (1 - PCV)] Future Scheduled 2021-09-23 TETANUS SHOT (ADULT) [facility] of Test 17:50:20 [code = TETANUS SHOT Medicin e (ADULT)] Future Scheduled 2021-09-23 Diabetic foot [facility] of Test 17:50:20 examination Medicine (regime/therapy) [code = 768853992] Future Scheduled 2021-09-23 ANNUAL DIABETIC [facility] of Test 17:50:20 RETINOPATHY SCREENING Medici ne [code = ANNUAL DIABETIC RETINOPATHY SCREENING] Future Scheduled 2021-09-23 BMI FOLLOW UP PLAN [facility] of Test 17:50:20 [code = BMI FOLLOW UP Medici ne PLAN] Future Scheduled 2021-09-23 Hepatitis C screening [facility] of Test 17:50:20 (procedure) [code = Medicine 888238229] Future Scheduled 2021-09-23 ZOSTER VACCINE (1 of 2) [facility] of Test 17:50:20 [code = ZOSTER VACCINE Medic ine (1 of 2)] Future Scheduled 2021-09-23 FALL SCREEN [code = [facility] of Test 17:50:20 FALL SCREEN] Medicine Future Scheduled 2021-09-23 COVID-19 Vaccine (4 - [facility] of Test 17:50:20 Booster for Moderna Medicine series) [code = COVID-19 Vaccine (4 - Booster for Moderna series)] Future Scheduled 2021-09-23 FLU VACCINE > [address] [facility] of Test 17:50:20 [code = FLU VACCINE > 6 Medi cine MONTHS] Future Scheduled 2021-09-23 MEDICARE AWV (Initial) B [facility] Test 17:50:20 [code = MEDICARE AWV Medicin [...] screening Medical C enter (procedure) [code = 263906176] Future Scheduled 2012-02-[address] [facility] Test 00:00:00 aneurysm screening Medical C enter (procedure) [code = 260082278] Future Scheduled 2012-02-[address] [facility] Test 00:00:00 aneurysm screening Medical C enter (procedure) [code = 408023896] Future Scheduled 1997 SHINGLES VACCINES ([address] [facility] Test 00:00:00 2) [code = SHINGLES [facility] Center VACCINES (1 of 2)] Future Scheduled 1997 SHINGLES VACCINES ([address] [facility] Test 00:00:00 2) [code = SHINGLES [facility] Center VACCINES (1 of 2)] Future Scheduled 1997 SHINGLES VACCINES ([address] [facility] Test 00:00:00 2) [code = SHINGLES [facility] Center VACCINES (1 of 2)] Future Scheduled [...] 00:00:00 examination Medical Center (regime/therapy) [code = 017538147] Future Scheduled 1957 Urine screening for [facility] Test 00:00:00 protein (procedure) Medical Center [code = 739388821] Future Scheduled 1957 DIABETIC EYE EXAM [code [facility] Test 00:00:00 = DIABETIC EYE EXAM] Medical Center Future Scheduled [address] [facility] 00:[facility]:00 examination Medical Center (regime/therapy) [code = 348095912] Future Scheduled 1957 Urine screening for [facility] Test 00:00:00 protein (procedure) Medical Center [code = 072877498] Future Scheduled 1957 DIABETIC EYE EXAM [code [facility] Test 00:00:00 = DIABETIC EYE EXAM] Medical Center Future Scheduled [address] [facility] Test 00:00:00 examination Medical Center (regime/therapy) [code = 309132919] Future Scheduled 1957 Urine screening for [facility] Test 00:00:00 protein (procedure) Medical Center [code = 348127531] Future Scheduled 1947 CT Colonography (combo) [facility] Test 00:00:00 [code = CT Colonography [facility] Center (combo)] Future Scheduled 1947 Screening for malignant [facility] Test 00:00:00 neoplasm of colon Medical Ce nter (procedure) [code = 954414628] Future Scheduled 1947 Screening for malignant [facility] Test 00:00:00 neoplasm of colon Medical Ce nter (procedure) [code = 923195921] Future Scheduled 1947 Screening for malignant [facility] Test 00:00:00 neoplasm of colon Medical Ce nter (procedure) [code = 486685177] Future Scheduled 1947 Screening for malignant [facility] Test 00:00:00 neoplasm of colon Medical Ce nter (procedure) [code = 249602050] Future Scheduled 1947 Sigmoidoscopy [code = [facility] S[facility]oidoscopy] Medical Cente r Future Scheduled 1947 CT Colonography (combo) [facility] Test 00:00:00 [code = CT Colonography Medi carey Center (combo)] Future Scheduled 1947 Screening for malignant [facility] Test 00:00:00 neoplasm of colon Medical Ce nter (procedure) [code = 928613434] Future Scheduled 1947 Screening for malignant [facility] Test 00:00:00 neoplasm of colon Medical Ce nter (procedure) [code = 743851380] Future Scheduled 1947 Screening for malignant [facility] Test 00:00:00 neoplasm of colon Medical Ce nter (procedure) [code = 621092196] Future Scheduled 1947 Screening for malignant [facility] Test 00:00:00 neoplasm of colon Medical Ce nter (procedure) [code = 559301872] Future Scheduled 1947 Sigmoidoscopy [code = [facility] S[facility]oidoscopy] Medical Cente r Future Scheduled 1947 CT Colonography (combo) [facility] Test 00:00:00 [code = CT Colonography Medi carey Center (combo)] Future Scheduled 1947 Screening for malignant [facility] Test 00:00:00 neoplasm of colon Medical Ce nter (procedure) [code = 676234334] Future Scheduled 1947 Screening for malignant [facility] Test 00:00:00 neoplasm of colon Medical Ce nter (procedure) [code = 545650512] Future Scheduled 1947 Screening for malignant [facility] Test 00:00:00 neoplasm of colon Medical Ce nter (procedure) [code = 313163214] Future Scheduled 1947 Screening for malignant [facility] Test 00:00:00 neoplasm of colon Medical Ce nter (procedure) [code = 031221382] Future Scheduled 1947 Sigmoidoscopy [code [facility] 00:[facility] Sigmoidoscopy] Medical Cente r Encounters Start End Encounter Admission Attending Care Care Encounter Source Date/Time Date/Time Type Type Clinicians Facility Department ID 2022-02-17 Outpatient Diaz, STLMLC STLMLC [id number] Common 10:29:01 Yann [facility] 2022-01-18 Outpatient Diaz, STLMLC STLC [id number] Common 08:51:01 Yann [facility] 2021-12-31 Outpatient Diaz, STLMLC STLC [id number] Common 10:27:01 Yann [id number] [facility] 2021-05-17 Outpatient Diaz, STLMLC STLC [id number] Common 09:00:01 Yann [facility] 2021-05-14 Outpatient Diaz, STLMLC STLMLC [id number] Common 10:41:02 Yann 56141 [facility] 2021-03-24 Outpatient Diaz, STLMLC STLMLC [id number] Common 14:26:44 Yann 29160 [facility] 2021-03-24 Outpatient Diaz, STLMLC STLMLC [id number] Common 13:19:52 Yann 56863 [facility] 2021-03-24 Outpatient Diaz, STLMLC STLMLC [id number] Common 13:09:16 Yann 39697 [facility] 2021-03-24 Outpatient Diaz, STLMLC STLMLC [id number] Common 12:43:25 Yann 14045 [facility] 2021-03-24 Outpatient Diaz, STLMLC STLMLC [id number] Common 12:42:35 Yann [id number] [facility] 2021-03-24 Outpatient Diaz, STLMLC STLC [id number] Common 12:42:21 Yann 62728 [facility] 2021-03-24 Outpatient Diaz, STLMLC STLC [id number] Common 11:17:23 Yann 17172 [facility] 2021-03-24 Outpatient Diaz, STLC STLC [id number] Common 11:15:43 Yann 74889 [facility] 2021-03-24 Outpatient Diaz, STLMLC STLC [id number] Common 11:15:21 Yann [id number] [facility] 2021-03-24 Outpatient Diaz, STLC STLC [id number] Common 11:00:50 Yann 71600 [facility] 2022-06-15 2022-06-15 Outpatient MHIE MHIE [id number] [facility] 10:00:00 10:00:00 07 [place] 2022-06-15 2022-06-15 Outpatient MHIE MHIE [id number] [facility]oria 10:00:00 10:00:00 07 dav[place] 2022-02-16 2022-02-16 [facility] [id number] Co mmon 00:00:00 00:00:00 [facility] 2022-02-07 2022-02-10 Office TAYLOR DELEON [id number] [facility] 14:10:38 19:54:53 Visit [facility]ILIAN [facility] [id number] College Y [id number] of [id number] Medi darrin 300 e 2022-02-07 2022-02-07 Outpatient [facility] [id number] [facility] 14:12:11 16:19:18 Colleg e of Medicin e 2022-02-03 2022-02-03 (TEL) [facility] [id number] Co mmon 00:00:00 00:00:00 [facility] 2022-02-01 2022-02-01 (TEL) STLC STLC [id number] Co mmon 00:00:00 00:00:00 [facility] 2022-01-19 2022-01-19 (HOSP F/U) STLMLC STLC [id number] Common 00:00:00 00:00:00 [facility] Follow Up - [facility] 2022-01-17 2022-01-17 (TEL) STLMLC STLC [id number] Co mmon 00:00:00 00:00:00 [facility] 2022-01-10 2022-01-10 (TEL) STLMLC STLC [id number] Co mmon 00:00:00 00:00:00 [facility] 2022-01-04 2022-01-04 [facility] [id number] Co mmon 00:00:00 00:00:00 VISIT [facility] ESTAB PT - CHI LEVEL 4 [facility] 2021-11-11 2021-11-11 Office TAYLOR DELEON [id number] [facility] 12:31:35 15:46:52 Visit LILIAN AMBULATOR [id number] College Y [id number] of [id number] Medi darrin 300 e 2021-11-11 2021-11-11 Outpatient [facility] [id number] [facility] 14:33:38 15:42:54 Colleg e of Medicin e 2021-11-11 2021-11-11 Outpatient [facility] [id number] [facility] 12:31:21 15:01:28 Colleg [facility] Medicin e 2021-11-04 2021-11-04 [facility] [id number] Co mmon 00:00:00 00:00:00 VISIT Spirit ESTAB PT - CHI LEVEL 4 [facility] 2021-11-04 2021-11-04 [facility] [id number] Common 00:00:00 00:00:00 MCR Spirit WELLNESS - CHI VISIT [facility] 2021-10-26 2021-10-26 Telephone Antonino [facility] [id number] 00:00[facility]00 00:00:00 [facility] 2021-10-26 2021-10-26 Telephone Antonino, [facility] [id number] 00:00[facility]00 00:00:00 [facility] 2021-10-11 2021-10-11 Documentat Miguel, [facility] [id number] 00:00[facility]00 00:00:[address] [facility] 2021-10-11 2021-10-11 Documentat Miguel, [facility] [id number] 00:00:00 00:00:00 [facility] 2021-10-04 2021-10-04 (HOSP F/U) [facility] [id number] Common 00:00:00 00:00:00 [facility] Follow Up - [facility] 2021-10-01 2021-10-01 Outpatient [facility] [id number] [address] [place] [address] 10:35:39 11:01:49 [facility] 2021-10-01 2021-10-01 (TEL) [facility] [id number] Co mmon 00:00:00 00:00:00 Spirit - [facility] 2021-09-30 2021-09-30 Outpatient [facility] [id number] [facility] 00:00:00 23:59:00 Colleg [facility] Medicin e 2021-09-29 2021-09-30 [facility] [id number] 08:04:00 13:30:00 Encounter [facility] 2021-09-29 2021-09-30 [facility] [id number] 08:04:00 13:30:00 Encounter [facility] 2021-09-29 2021-09-30 [facility] [id number] [facility] 08:04:00 13:30:00 [facility] 2021-09-29 2021-09-29 [facility] [facility] [id number] [facility] 08:04:00 23:59:00 [facility] 2021-09-29 2021-09-29 Surgery Adrienne, [facility] [id number] 12:28:00 16:43:00 [facility] 2021-09-29 2021-09-29 Surgery Adrienne, [facility] [id number] 12:28:00 16:43:00 [facility] 2021-09-29 2021-09-29 Anesthesia Tolfco, [facility] [id number] 11:41:00 15:31:00 Event [facility] 2021-09-29 2021-09-29 Anesthesia Tolpin, [facility] [id number] 11:41:00 15:31:00 Event [facility] 2021-09-29 2021-09-29 Travel [facility] [id number] [facility] 00:[facility] 00:00:00 [facility] 2021-09-29 2021-09-29 Travel [facility] [id number] [facility] 00:[facility]00 00:00:00 [facility] 2021-09-23 2021-09-24 Outpatient [facility] [id number] [facility] 16:04:57 08:01:49 [facility] 2021-09-23 2021-09-23 Office Maria D [facility] [id number] 15:00:00 15:30:00 Visit [facility] 2021-09-23 2021-09-23 Office VALDEMAR Killian [facility] [id number] 15:00:00 15:30:00 Visit [facility] 2021-09-23 2021-09-23 Outpatient [facility] [id number] [facility] 15:05:44 15:05:44 KARTIK 2021-09-23 2021-09-23 Office TAYLOR DELEON [id number] [facility] 09:58:37 14:43:11 Visit LILIAN AMBULATOR [id number] College Y [id number] Medi darrin 300 e 2021-09-23 2021-09-23 Outpatient BCM [facility] [id number] [facility] 09:58:28 14:42:29 [facility] 2021-09-23 2021-09-23 Outpatient [facility] [id number] [facility] 09:53:54 13:13:16 [facility] 2021-09-23 2021-09-23 [facility] [id number] 00:00:00 00:00:00 Only [facility] 2021-09-23 2021-09-23 [facility] [id number] 00:00:00 00:00:00 Only [facility] 2021-08-31 2021-08-31 [facility]ICE [facility] [id number] Co mmon 00:00:00 00:00:00 VISIT Ronak MCALLISTER PT - CHI LEVEL 4 [facility] 2021-08-24 2021-08-24 Outpatient IMELDA VictorMERT [facility] [id number] [facility] 09:27:00 09:27:00 Olclotilde [id number] [facility] 2021-08-24 2021-08-24 Outpatient LUIS Victor [facility] [id number] [facility] 09:27:00 09:27:00 Olanike 01 [facility] 2021-08-16 2021-08-16 (TEL) STLMLC STLMLC [id number] Co mmon 00:00:00 00:00:00 Spirit July FRIAS [facility] 2021-06-15 2021-06-16 Outpatient nullFlavo MNA [id number] Memoria 15:30:00 04:59:59 r Neurology 06 l Daytonana Dawkins 2021-06-15 2021-06-16 Outpatient nullFlavo MNA [id number] [facility] 15:30:00 04:59:59 r Neurology 06 l Brooks Dawkins 2021-06-15 2021-06-15 Outpatient KAZ ParedesER [facility] [id number] 10:30:00 23:59:59 Sam Collins 2021-06-15 2021-06-15 Outpatient GISELE JAQUEZ [id number] [facility] 10:30:00 10:30:00 06 david Dawkins 2021-05-17 2021-05-17 OFFICE STLMLC STLMLC [id number] Co mmon 00:00:00 00:00:00 VISIT Spirit ESTAB PT - CHI LEVEL 4 [facility] 2021-02-16 2021-02-16 OFFICE STLMLC STLMLC [id number] Co mmon 00:00:00 00:00:00 VISIT [facility] ESTAB PT - CHI LEVEL 4 [facility] 2020-12-15 2020-12-15 (TEL) STLMLC STLMLC [id number] Co mmon 00:00:00 00:00:00 [facility] 2020-11-24 2020-11-24 OFFICE STLMLC STLMLC [id number] Co mmon 00:00:00 00:00:00 VISIT Spirit ESTAB PT - CHI LEVEL [address] [place] [address] 2020-11-24 2020-11-24 SUB ANNUAL STLMLC STLMLC [id number] Common 00:00:00 00:00:00 MCR [facility] WELLNESS - CHI VISIT [facility] 2020-10-27 2020-10-27 Outpatient STLMLC STLMLC [id number] Common 00:00:00 00:00:00 [facility] 2020-09-23 2020-09-23 Outpatient STLMLC STLMLC [id number] Common 00:00:00 00:00:00 [facility] 2020-09-17 2020-09-17 Outpatient STLMLC STLMLC [id number] Common 00:00:00 00:00:00 [facility] 2020-08-25 2020-08-25 Outpatient STLMLC STLMLC [id number] Common 00:00:00 00:00:00 [facility] 2020-06-24 2020-06-26 Outside nullFlavo MNA [id number] [facility] 13:59:45 04:59:59 Medical r Neurology 00 l Records Brooks Dawkins 2020-06-24 2020-06-26 Outside nullFlavo MNA [id number] [facility] 13:59:45 04:59:59 Medical r Neurology 00 l Records Brooks Dawkins 2020-06-24 2020-06-25 Outpatient MHMISCHER MHMISCHER [id number] 08:59:45 23:59:59 00 2020-06-12 2020-06-13 Outpatient nullFlavo MNA [id number] Memoria 15:30:00 04:59:59 r Neurology 05 l Brooks Dawkins 2020-06-12 2020-06-13 Outpatient nullFlavo MNA [id number] [facility] 15:30:00 04:59:59 r Neurology 05 l Brooks Dawkins 2020-06-12 2020-06-12 Outpatient ANGELICA ParedesSCHER [facility] [id number] 10:30:00 23:59:59 Sam Hailee Collins 2020-06-12 2020-06-12 Ambulatory nullFlavo MNA [id number] Memoria 15:30:00 15:30:00 Pre-Reg r Neurology 04 l Brooks Dawkins 2020-06-12 2020-06-12 Ambulatory nullFlavo MNA [id number] Memoria 15:30:00 15:30:00 Pre-Reg r Neurology 04 l Brooks Dawkins 2020-06-12 2020-06-12 Outpatient MHIE MHIE [id number] [facility] 10:30:00 10:30:00 05 david Dawkins 2020-06-12 2020-06-12 Outpatient MHIE MHIE [id number] [facility] 10:30:00 10:30:00 04 david Dawkins 2020-06-12 2020-06-12 Outpatient BROWN Paredes [facility] [id number] 10:30:00 10:30:00 Sam 04 Dennis 2020-05-18 2020-05-18 Outpatient STLMLC STLMLC [id number] Common 00:00:00 00:00:00 [facility] 2020-04-07 2020-04-07 Outpatient STLMLC STLMLC [id number] Common 00:00:00 00:00:00 [facility] 2020-02-18 2020-02-18 Outpatient STLMLC STLMLC [id number] Common 00:00:00 00:00:00 [facility] 2020-02-06 2020-02-06 Outpatient STLMLC STLMLC [id number] Common 00:00:00 00:00:00 [facility] 2019-11-20 2019-11-20 Outpatient STLMLC STLMLC [id number] Common 00:00:00 00:00:00 [facility] 2019-11-20 2019-11-20 Outpatient STLMLC STLMLC [id number] Common 00:00:00 00:00:00 [facility] 2019-11-20 2019-11-20 Outpatient STLMLC STLMLC [id number] Common 00:00:00 00:00:00 [facility] 2019-08-19 2019-08-19 Out[facility] [id number] Common 16:15:00 16:15:[address] [facility] 2019-08-16 2019-08-16 Outpatient [facility] [id number] Common 09:45:00 09:45:[address] [facility] 2019-08-09 2019-08-09 Outpatient [facility] [id number] Common 15:20:00 15:20:[address] [facility] 2019-06-14 2019-06-15 Outpatient nullFlavo MNA [id number] Memoria 15:45:00 04:59:59 r Neurology 03 l [place] Juancho 2019-06-14 2019-06-15 Outpatient nullFlavo MNA [id number] Memoria 15:45:00 04:59:59 r Neurology 03 l [place] 2019-06-14 2019-06-14 Outpatient ANGELICA ParedesSCHER MEHULMISCHSUMAYA [id number] 10:45:00 23:59:59 Sam Collins 2019-06-14 2019-06-14 Outpatient MHIE MHIE [id number] [facility] 10:45:00 10:45:00 03 l [place] 2019-05-23 2019-05-23 Ambulatory nullFlavo MNA [id number] Memoria 14:00:00 14:00:00 Pre-Reg r Neurology 02 l Brooks Deshpandeann 2019-05-23 2019-05-23 Ambulatory nullFlavo MNA [id number] Memoria 14:00:00 14:00:00 Pre-Reg r Neurology 02 l [place] 2019-05-23 2019-05-23 Outpatient MHIE MHIE [id number] [facility] 09:00:00 09:00:00 02 l Juancho 2019-05-23 2019-05-23 Outpatient [facility], MISCHER MISCHER [id number] 09:00:00 09:00:00 Sam Collins 2019-05-22 2019-05-22 Out[facility] [id number] Common 14:45:00 14:45:[address] [facility] 2019-05-13 2019-05-13 Outpatient [facility] [id number] Common 10:33:00 10:33:[address] [facility] 2019-05-02 2019-05-02 Outpatient [facility] [id number] Common 16:42:00 16:42:[address] [facility] 2019-04-29 2019-04-29 Outpatient [facility] [id number] Common 08:36:00 08:36:[address] [facility] 2019-04-24 2019-04-24 Outpatient [facility] [id number] Common 13:15:00 13:15:[address] [facility] 2019-04-23 2019-04-23 Outpatient [facility] [id number] Common 15:22:00 15:22:[address] [facility] 2019-03-13 2019-03-13 Outpatient [facility] [id number] Common 13:30:00 13:30:[address] [facility] Family [facility] 2018-05-17 2018-05-17 Outpatient GISELE JAQUEZ [id number] [facility] 09:00:00 09:00:00 01 david Dawkins 2018-05-17 2018-05-17 Outpatient GISELE JAQUEZ [id number] [facility] 09:00:00 09:00:00 01 david Dawkins 2017-05-18 2017-05-18 Outpatient GISELE JAQUEZ [id number] [facility] 09:00:00 09:00:00 00 david Dawkins 2017-05-18 2017-05-18 Outpatient GISELE JAQUEZ [id number] [facility] 09:00:00 09:00:00 00 david Dawkins Results Test Description Test Time Test Comments Results Result Sour e Comments 2D Echo Ejection FractionSLEH [facility] W/Doppler(CW/PW/ 4 [facility]) 13:05:06 [facility] 2D Echo Ejection FractionSLEH [facility] W/Doppler(CW/PW/ 4 [facility]) 13:05:06 [facility] 2D Echo Ejection FractionSLEH [facility] W/Doppler(CW/PW/ 4 E[facility]) 13:05:06 [facility] RAD, CHEST, 1 post-operative VIEW, NON DEPT 4 day 1Reason for 07:49:00 exam:->s/p [facility] be performed at CENTERName: Sebastian NEWSOME : [...] 128 mg/dL 70-110 H : TESTED AT [facility] 6720 [facility] 1538) [facility], [facility] 30: [employer] Lieutenant/Techni edgar ID = [id number] for SALIMA OSORIOE Lab Interpretation (test code = Abnormal 22668-6) [facility]-Glucose [id number] 07:07:37 Test Item Value Reference Range Interpretation Comments POC-Glucose Meter (test 128 mg/dL 70-110 H : TE STED AT [facility] code = 1538) [address] [place] [address], [facility] 30: [employer] Lieutenant/Techni edgar ID = [id number] for FOWLER-SALIMA JOSHIE Lab Interpretation (test Abnormal code = 66166-5) [facility]-Glucose [id number] 07:07:37 Test Item Value Reference Range Interpretation Comments POC-Glucose Meter (test 128 mg/dL 70-110 H : TE STED AT [facility] code = 1538) [address] [place] [address], [facility] 30: [employer] Lieutenant/Techni edgar ID = [id number] for FOWLER-MADELYN MYNOR Lab Interpretation (test Abnormal code = 32846-1) [facility]-GLUCOSE [id number] 07:07:37 Test Item Value Reference Range Interpretation Comments POC-GLUCOSE METER 128 mg/dL 70-110 H : TESTED A T [facility] 6720 (BEAKER) (test code = BERTNE R [facility], 1538) [address]: [employer] Lieutenant/Techni edgar ID = [id number] for SALIMA OSORIOE BASIC METABOLIC [id number] 05:24:00 Test Item Value Reference Range Interpretation [...] not appl icable for dialysis patien ts [employer] Lieutenant ID - PIAYA LCBC (HEMOGRAM ONLY)2021-09-30 04:59:49 [...] (BEAKER) (test code = 412) PLATELET COUNT ([facility]) (test code 76 K/CU MM 150-450 L = 756) MEAN PLATELET VOLUME (BEAKER) 11.1 fL 9.4-12.4 (test code = 754) NUCLEATED RED BLOOD CELLS (BEAKER) 0 /100 WBC 0-0 (test code = 413) POCT-GLUCOSE [id number] 22:03:55 Test Item Value Reference Range Interpretation Comments POC-GLUCOSE METER 162 mg/dL 70-110 H : Notified RN/MD: ([facility]) (test code = TESTED AT [place] [address] 1538) [facility], [address]: [employer] Lieutenant/Techni edgar ID = [id number] for JOVI RAMIREZ Transesophageal [id number] 18:57:01Ejection FractionSLEH [facility]CHO [facility]LAB [facility] [id number] 18:57:01Ejection FractionSLEH ECHO HEARTLAB MKCKESSON [facility] [id number] 18:57:01Ejection FractionSLE ECHO HEARTLAB MKCKESSON [facility] ACTIVATED CLOTTING [id number] 16:21:30 Test Item Value Reference Range Interpretation Comments Activated Clotting Time 144 sec : 74 -137 seconds, (test code = 3184-9) Baselin e: TESTED AT [address], 770 30: [employer] Lieutenant/Techni edgar ID = [id number] for Go , Honor [facility] ACTIVATED CLOTTING [id number] 16:21:30 Test Item Value Reference Range Interpretation Comments Activated Clotting Time 144 sec : 74 -137 seconds, (test code = 3184-9) Baselin e: TESTED AT [address], 770 30: [employer] Lieutenant/Techni edgar ID = [id number] for Go , Honor [facility] ACTIVATED CLOTTING [id number] 16:21:30 Test Item Value Reference Range Interpretation Comments Activated Clotting Time 144 sec : 74 -137 seconds, (test code = 3184-9) Baselin e: TESTED AT [facility] 6720 [facility], 770 30: [employer] Lieutenant/Techni edgar ID = [id number] for Go , Honor [facility][id number] 16:21:30 Test Item Value Reference Range Interpretation Comments ACTIVATED CLOTTING TIME 144 sec : 74 -137 seconds, (BEAKER) (test code = Baseli ne: TESTED AT 441) [facility] 6720 [facility], 770 30: [employer] Lieutenant/Techni edgar ID = [id number] for Go , Honor POCT-GLUCOSE [id number] 16:13:14 Test Item Value Reference Range Interpretation Comments POC-GLUCOSE METER 120 mg/dL 70-110 H : TESTED [facility] T [facility] 67 ([facility]) (test code = [facility], 1538) [address]: [employer] Lieutenant/Techni edgar ID = [id number] for BA TTADLUCÍA Prepare [id number] 15:30:00 Test Item Value Reference Range Interpretation Comments CROSSMATCH (test code = COMPATIBLE 2264) Unit ABO (test code = O Pos 2603197) UNIT NUMBER (test code = [id number] 934-0) Status (test code = RETURNED FROM ISSUE 1473069) Blood Bank Product (test RED BLOOD CELLS code = 2263) PRODUCT CODE (test code = B2441D47 933-2) [facility] [id number] 15:30:00 Test Item Value Reference Range Interpretation Comments CROSSMATCH (test code = COMPATIBLE 2264) Unit ABO (test code = O Pos 5922593) UNIT NUMBER (test code = [id number] 934-0) Status (test code = RETURNED FROM ISSUE 8991291) Blood Bank Product (test RED BLOOD CELLS code = 2263) PRODUCT CODE (test code = R6649T47 933-2) [facility] [id number] 15:30:00 Test Item Value Reference Range Interpretation Comments CROSSMATCH (test code = COMPATIBLE 2264) Unit ABO (test code = O Pos 7636711) UNIT NUMBER (test code = [id number] 934-0) Status (test code = RETURNED FROM ISSUE 6750041) Blood Bank Product (test RED BLOOD CELLS code = 2263) PRODUCT CODE (test code = H5025L72 933-2) [facility][id number] 15:15:20 Test Item Value Reference Range Interpretation Comments ACTIVATED CLOTTING TIME 184 sec : 74 -137 seconds, (BEAKER) (test code = Baseli ne: TESTED AT 441) [facility] [address] [place] [address], 770 30: [employer] Lieutenant/Techni edgar ID = [id number] for [place] [place] CUSI-[id number] 14:20:35 Test Item Value Reference Range Interpretation Comments ACTIVATED CLOTTING TIME 277 sec : 74 -137 seconds, (BEAKER) (test code = Baseli ne: TESTED AT 441) [address], [facility] 30: [employer] Lieutenant/Techni edgar ID = [id number] for [place] B-TYPE NATRIURETIC FACTOR (BNP)2021-09-23 16:28:06 Test Item Value Reference Range Interpretation Comments B-TYPE NATRIURETIC PEPTIDE (BEAKER) 91 pg/mL 0-100 (test code = 700) [employer] Lieutenant ID - ADMINCOMPREHENSIVE METABOLIC [id number] 15:51:41 Test Item Value Reference Range Interpretation [...] not appl icable for dialysis patien ts [employer] Lieutenant ID - ADMINCBC W/PLT COUNT & AUTO [id number] 15:40:59 Test Item Value Reference Range Interpretation [...] PERCENT (BEAKER) (test code = 2801) PROTHROMBIN TIME/[id number] 15:38:16 Test Item Value Reference Range Interpretation Comments PROTIME (BEAKER) 13.5 seconds 11.9-14.2 (test code = 759) INR (BEAKER) (test 1.05 See_Comment [Automat ed message] code = 370) The system [employer] generated this result transmitted ref erence range: <=5.90. The reference range was not used to int erpret this result as normal/abnormal . RECOMMENDED COUMADIN/WARFARIN INR THERAPY RANGESSTANDARD DOSE: 2.0 - 3.0 Includes: PROPHYLAXIS for venous thrombosis, systemic embolization; TREATMENT for venous thrombosis and/or pulmonary embolus.HIGH RISK: Target INR is 2.5-3.5 for patients with mechanical heart valves.COVID 19 Asymptomatic IH [id number] 12:19:00 Test Item Value Reference Range Interpretation [...] or waivedcomplexit y tests. CREATININE W ESTIMATED [id number] 10:53:00 Test Item Value Reference Range Interpretation Comments BEDSIDE CREATININE 1.6 MG/DL 0.6-1.3 H Performed by (test code = CREATBED) certi fied shotblast operator at [facility] GLOMERULAR FILTRATION 45 ML/MIN Perfor med by RATE POC (test code = certif ied shotblast operator at [facility]) [facility] - CT ANGIO [id number] 00:00:00 [facility] 1945 Sex: MName: BILLY NEWSOME [facility] : 1945 Age/S: 76 / M [address] [place] [address] Unit #: [id number] Loc: JONAH Fung [address] Phys: Neetu Shah [facility] Acct: [id number] Dis Date: Status: JEAN FERNANDEZ PHONE #: [phone] Exam Date: 08/24/2021 1111 FAX #: [phone] Reason: AORTIC STENOSIS EXAMS: CPT CODE: [id number] CT ANGIO CHEST 71601 PROCEDURE INFORMATION: Exam: CTA Heart and Coronary [...] No relevant prior studies available. FINDINGS: CALCIUM SCORE:The Calcium score within the aortic valve demonstrates [...] height measured approximately 19 mm. Right coronary heightmeasured 15 mm. CARDIAC: Evaluation of the coronary tree was slightly limited. Right coronary arteryorigin appeared patent. There is mild atherosclerotic plaque appreciated within the proximal and distal right coronary artery. The left main appeared patent with a bifurcation into the LAD and left circumflex. Evaluation of the mid and distal LAD was limited. There is calcified plaque within 1st diagonal vessel. PAGE 1 Signed Report (CONTINUED) Name: BILLY NEWSOME [facility] : 1945ge/S: 76 / M [address] [place] [address] Blvd Unit #: [id number] Loc: JONAH Fung [address]06[address] Phys: Carlitos Shah Acct: [id number] Dis Date: Status: REG CLI PHONE #: [phone] Exam Date: 08/24/2021 1111 FAX #: [phone] Reason: AORTIC STENOSIS EXAMS: CPT CODE: [id number] CT ANGIO CHEST 98726 (Continued) Incidental note was made of mild to moderate calcification within the mitral valve. Left atrium appeared normal in AP dimension. The left atrial appendage appears to fill normally with contrast. Thereis no pericardial effusion. Lungs: Limited views of [...] stenosis TECHNIQUE: Imaging protocol: Computed tomographic angiography ofthe chest without and with contrast. Computed tomographic angiography of the abdomen and pelvis without and with contrast. 3D rendering (Not supervised by radiologist): MIP and/or 3D reconstructed images were created by the technologist. Radiation optimization: All CT scans at this facility use at least one of these dose optimization techniques: automated exposure control; mA and/or kV adjustment perpatient size (includes targeted exams where dose is matched to clinical indication); or iterative rec onstruction. Contrast material: ISOVUE 370; Contrast volume: 100 [...] 2 Signed Report (CONTINUED) Name: BILLY NEWSOME [facility] : 1945 Age/S: 76 / M [address] [place] [address] Blvd Unit #: [id number] Loc: JONAH Fung [address] Phys: Neetu Shah GREETER Acct: [id number] Dis Date: Status: REG CLI PHONE #: [phone] Exam Date: 08/24/2021 1111 FAX #: [phone] Reason: AORTIC STENOSIS EXAMS: CPT CODE: [id number] CT ANGIO CHEST 77971 (Cont inued) is infrarenal aorta demonstrate minimal atherosclerotic calcification. The distal aorta measures 16 mm. The right common iliac artery is patent with minimal atherosclerotic disease. The right hypogastric artery is patent. The right external iliac artery is patent. There is minimal posterior plaque to the right common femoral artery. There is a preserved bifurcation to the right common femoralartery. The left common iliac artery demonstrates minimal atherosclerotic calcification and is patent. The left hypogastric artery is patent. There is minimal tortuosity to a patent left external iliacartery. The femoral artery is patent with a preserved bifurcation. His CHEST: Lungs: Unremarkable. No consolidation. No masses. Pleural spaces: Unremarkable. No pneumothorax. No pleural effusion. Heart: Unremarkable. No cardiomegaly. No pericardial effusion. Mild mitral valvular calcification. Aortic valvular calcification. ABDOMEN AND PELVIS: Liver: No mass. Gallbladder and bile ducts: Unremarkable.No calcified stones. No ductal dilation. Pancreas: Unremarkable. [...] 3 Signed Report (CONTINUED) Name: BILLY NEWSOME [facility] : 1945 Age /S: 76 / M [address] [facility] Unit #: [id number] Loc: JONAH Fung [address] Phys: Neetu Shah Acct: [id number] Dis Date: Status: REG CLI PHONE #: [phone] Exam Date: 08/24/2021 1111 FAX #: [phone] Reason: AORTIC STENOSIS EXAMS: CPT CODE: [id number] CT ANGIO CHEST 49504 (Continued) at 2330 Reported and signed by: Trevor Villarreal M.D CC: Neetu Shah; Yann Diaz DO; Nawaf Dotson MD Technologist:Russell Jimenez, RT(R)(CT) CTDI: DLP: Trnscb Date/Time: 08/24/2021 (2329) [email or web address] Orig Print D/T: S: 08/24/2021 (2329) PAGE 4 Signed Report- CTA ABD PEL W [id number] 00:00:00 [facility] [place]DA [place] NEWS[place] : 1945 Sex: MName: BILLY NEWSOME [facility] Rosalinda Sumner : 1945 Age/S: 76 / M [address] [facility] Unit#: [id number] Loc: JONAH Fung [address] Phys: Neetu Shah Acct: [id number] Dis Date: Status: REG CLI PHONE #: [phone] Exam Date: 08/24/2021 1110 FAX #: [phone] Reason: AORTIC STENOSISEXAMS: CPT CODE: [id number] CTA ABD PEL W CONT 36214 PROCEDURE INFORMATION: Exam: CTA Heart and Coronary Arteries Without and With Contrast Exam date and time: 08/24/2021 10:42 AM Age: 76 years old Clinical indication: Other: Aortic stenosis TECHNIQUE: Imaging protocol: Computed tomographic angiographyof the heart, coronary arteries and bypass grafts (when present) without and with contrast [id number] image postprocessing (including evaluation of cardiac structure [...] INTRAVENOUS (IV); Other technique: 3D renderinD reconstructed imageswere created, reviewed and saved. COMPARISON: No relevant prior studies available. FINDINGS: CALCIUMSCORE: The Calcium score within the aortic valve demonstrates elevated Agatson score of 2074. This is consistent with the patient's history of severe aortic stenosis. Using a 3D workstation the aorticvalve was studied in multiple cardiac phases. At [...] is mild atherosclerotic plaque appreciated within the proximaland distal right coronary artery. The left main appeared patent with a bifurcation into the LAD and left circumflex. Evaluation of the mid and distal LAD was limited. There is calcified plaque within 1st diagonal vessel. PAGE 1 Signed Report (CONTINUED) Name: BILLY NEWSOME [facility] : 1945 Age/S: 76 / [address] Unit #: [id number] Loc: JONAH Fung [address] Phys: Neetu Shah GREETER Acct: [id number] Dis Date: Status: REG CLI PHONE #: [phone] Exam Date: 08/24/2021 1110 FAX #: [phone] Reason: AORTIC STENOSIS EXAMS: CPT CODE: [id number] CTA ABD PEL W CONT 61171 (Continued) Incidental note was made of mild [...] (Not supervised by radiologist): MIP and/or 3D recon structed images were created by the technologist. Radiation [...] There PAGE 2 Signed Report (CONTINUED) Name: MERCEDEZBILLY MORRISNE [facility] [place] : 1945 Age/S: 76 / M [address] [place] [address] Blvd Unit #: [id number] Loc: JONAH Fung [phone]: Neetu Shah [facility] Acct: [id number] Dis Date: Status: REG CLI PHONE #: [phone] Exam Date: 08/24/2021 1110 FAX #: [phone] Reason: AORTIC STENOSIS EXAMS: CPT CODE: [id number] CTA ABD PELW CONT 92232 (Continued) is infrarenal aorta demonstrate minimal atherosclerotic calcification. Thedistal aorta measures 16 mm. The right common [...] 3 Signed Report (CONTINUED) Name: BILLY NEWSOME [facility] Rosalinda ElbertDOB: 1945 Age/S: 76 / M [address] [place] [address] Blvd Unit #: [id number] Loc: JONAH Fung [address] Phys: Neetu Shah Acct: [id number] Dis Date: Status: REG CLI PHONE #: [phone] Exam Date: 08/24/2021 1110 FAX #: [phone] Reason: AORTIC STENOSIS EXAMS: CPT CODE: [id number] CTA ABD PEL W CONT 64399 (Continued) at 2330 Reported and signed by: Trevor Villarreal M.D CC: Neetu Shah; Yann Diaz DO; Nawaf Dotson MD Technologist:Russell Jimenez, RT(R)(CT) CTDI: DLP: Trnscb Date/Time: 08/24/2021 (2329) [email or web address] Orig Print D/T: S: 08/24/2021 (2329) PAGE 4 Signed Report- CTA HEART W CN [id number] 00:00:00 [facility] 1945 Sex: MName: BILLY NEWSOME [facility] Rosalinda Sumner : 1945 Age/S: 76 / M [address] [place], [place] [address]vd Unit#: [id number] Loc: JONAH Fung [address] Phys: Neetu Shah Acct: [id number] Dis Date: Status: REG CLI PHONE #: [phone] Exam Date: 08/24/2021 1110 FAX #: [phone] Reason: EXAMS: CPT CODE: [id number] CTA HEART W CN ART/GRAFTS 97555 PROCEDURE INFORMATION: Exam: CTA Heart and Coronary [...] Contrast material: ISOVUE 370; Contrast volume: 100 m l; Contrast route: INTRAVENOUS (IV); Other technique: 3D [...] height measured approximately 19 mm. Right coronary heightmeasured 15 mm. CARDIAC: Evaluation of the coronary tree was slightly limited. Right coronary arteryorigin appeared patent. There is mild atherosclerotic plaque appreciated within the proximal and distal right coronary artery. The left main appeared patent with a bifurcation into the LAD and left circumflex. Evaluation of the mid and distal LAD was limited. There is calcified plaque within 1st diagonal vessel. PAGE 1 Signed Report (CONTINUED) Name: BILLY NEWSOME [facility] : 1945 Age/S: 76 / M [address] [place] [address] Unit #: [id number] Loc: JONAH Fung [address] Phys: Neetu Shah [facility] Acct: [id number] Dis Date: Status: REG CLI PHONE #: [phone] Exam Date: 08/24/2021 1110 FAX #: [phone] Reason: EXAMS: CPT CODE: [id number] CTA HEART W CN ART/GRAFTS 00809 (Continued) Incidental note was made of mild [...] supervised by radiologist): MIP and/or 3D reconstructed imageswere created by the technologist. Radiation optimization: All CT scans at this facility use at leastone of these dose optimization techniques: automated exposure control; mA and/or kV adjustment per patient size (includes targeted exams where dose is matched to clinical indication); or iterative reconstruction. Contrast material: ISOVUE 370; Contrast volume: 100 ml; Contrast route: INTRAVENOUS (IV);COMPARISON: No relevant prior studies available. FINDINGS: The [...] 2 Signed Report (CONTINUED) Name: BILLY NEWSOME [facility] : 1945 Age/S: 76 / M [address] [place] [address] Unit #: [id number] Loc: JONAH Fung [address] Phys: Neetu Shah GREETER Acct: [id number] Dis Date: Status: REG CLI PHONE #: [phone] Exam Date: 08/24/2021 1110 FAX #: [phone] Reason: EXAMS: CPT CODE: [id number] CTA HEART W CN ART/GRAFTS 65470 (Continued) is infrarenal aorta demonstrate minimal atherosclerotic calcification. The distal aorta measures 16mm. The right common iliac artery is patent with minimal atherosclerotic disease. The right hypogastric artery is patent. The right external iliac artery is patent. There is minimal posterior plaque tothe right common femoral artery. There is a [...] air. No significant fluid collection. Urinary bladder: Unremarkable.No mass. Reproductive: Unremarkable as visualized. Lymph nodes: Unremarkable. No enlarged lymph nodes. Bones/joints: Mild osteopenia with degenerative changes of the bony pelvis and lumbar spine. IMPRESSION: Unremarkable CTA chest, abdomen, and pelvis. Minimal atherosclerotic calcification to the distal aorta and common iliac arteries. Common femoral and iliac arteries are patent and well preserved. PAGE 3 Signed Report (CONTINUED) Name: BILLY NEWSOME [facility] : 1945 Age/S: 76 /M [address] [place], [place] [address] Unit #: [id number] Loc: JONAH Fung [address] Phys: Neetu Shah Acct: [id number] Dis Date: Status: REG CLI PHONE #: [phone] Exam Date: 08/24/2021 1110 FAX #: [phone] Reason: EXAMS: CPT CODE: [id number] CTA HEART W CN ART/GRAFTS 12142 (Continued) at 2330 Reported and signed by: Trevor Villarreal M.D CC: Neetu Shah; Yann Dotson MD Technologist:Russell Jimenez RT(R)(CT) CTDI: DLP: Trnscb Date/Time: 08/24/2021 (2329) [email or web address] Orig Print D/T: S: 08/24/2021 (2329) PAGE 4 Signed Report
[2022-02-17 14:02] LABS: Absolute Lymphocytes (CBC) 0.5 K/uL (0.7-4.9); Hematocrit 27.7 % (39.6-49.0); Lymphocytes % 5.3 % (15.3-44.8); MCV 90.3 fL (80-100); MPV 9.4 fL (7.6-11.3); RBC Red Blood Cell Count 3.07 M/uL (4.33-5.43)
[2022-02-17 14:15] LABS: Bilirubin Total 1.1 mg/dL (0.2-1.0); Potassium 4.2 mmol/L (3.5-5.1); Protein, Total 7.2 g/dL (6.4-8.2)
--- NOTE | 2022-02-17 14:18 | RAD REPORT ---
EXAM DESCRIPTION: CT - Head Brain Wo Cont - 02/17/2022 1:53 pm CLINICAL HISTORY: ams COMPARISON: Chest Single View dated 01/10/2022 TECHNIQUE: All CT scans are performed using dose optimization technique as appropriate and may inclu de automated exposure control or mA/KV adjustment according to patient size. FINDINGS: No intracranial hemorrhage, hydrocephalus or extra-axial fluid collection.No areas of brai n edema or evidence of midline shift. The paranasal sinuses and mastoids are clear. The calvarium is intact. IMPRESSION: No acute intracranial abnormality.
[2022-02-17] MEDS ORDERED: NA CHLORIDE 0.9% 100 ML IV ONE (14:35)
[2022-02-17] MEDS ORDERED: PIPERACIL/TAZO 3.375 GM VIAL IV ONE (14:35)
--- NOTE | 2022-02-17 14:39 | RAD REPORT ---
EXAM DESCRIPTION: CT - Thorax Wo Con - 02/17/2022 1:55 pm CLINICAL HISTORY: fever, sob COMPARISON: THORAX W CONTRAST dated 07/29/2013 FINDINGS: Chest Wall: No suspicious thyroid nodules or pathologic lymphadenopathy. Lungs: Faint right upper lobe ground-glass opacity measuring approximately 4.8 cm. No consolidation. Edema. Pleura: No significant effusions or pneumothorax. Mediastinum/shania: No pathologic lymphadenopathy. Pulmonary arteries/Aorta: Limited evaluation without contrast. No aortic aneurysm. Heart: No significant pericardial effusion. Normal heart size. Aortic valve prosthesis. Mitral annula r calcifications. Upper abdomen: No acute abnormality. Hepatic steatosis. Benign left adrenal nodule. Bones: No acute abnormality. All CT scans are performed using dose optimization technique as appropriate and may include automated exposure control or mA/KV adjustment according to patient size. IMPRESSION: Faint ground-glass area in the right upper lobe measuring 4.8 cm could represent early o r mild pneumonia. Neoplasm can occasionally have this appearance. Recommend 3 month follow up chest C T.
[2022-02-17 14:47] LABS: SARS-COV-2 RT PCR NEGATIVE (NEGATIVE)
[2022-02-17] MEDS ORDERED: NA CHLORIDE 0.9% 1,000 ML ONE (15:03)
[2022-02-17] MEDS ORDERED: ACETAMINOPHEN 500 MG TAB ONE (15:19)
--- NOTE | 2022-02-17 15:41 | EDPHYS ---
Physician Documentation [facility] Name: Dwight Flaherty Age: 76 yrs Sex: Male : 1945 Arrival Date: 02/17/2022 Time: 13:20 Bed 19 Private MD: ED Physician Ismael Gandara HPI: 02/17 13:31 This 76 yrs old Male presents to ER via Ambulatory with complaints of Fever, General jmm Weakness. 13:31 The patient reports fever, that was measured at 103 degrees Fahrenheit. Onset: The jmm symptoms/episode began/occurred gradually, 3 day(s) ago. Is a 76-year-old male with history of diabetes mellitus the presents emerged part with complaints of cough, fever, body aches beginning approximately 3 days ago. Patient was evaluated in the ED with normal labs. Patient was advised by PCP to return to the ED due to concerns for altered mental status. states the patient with a currently slurred speech, denies any unilateral deficits.. 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 - Social history:: Smoking status: Patient denies any tobacco usage or history of. ROS: 13:31 Constitutional: Positive for body aches, chills, fever. jmm 13:31 Respiratory: Positive for cough. 13:31 Neuro: Positive for altered mental status. 13:31 All other systems are negative. Exam: 13:31 Constitutional: This is a well developed, well nourished patient who is awake, alert, jmm and in no acute distress. Head/Face: atraumatic. Eyes: EOMI, no conjunctival erythema appreciated ENT: Moist Mucus Membranes Neck: Trachea midline, Supple Chest/axilla: Normal chest wall appearance and motion. Cardiovascular: Regular rate and rhythm. No edema appreciated Respiratory: Normal respirations, no respiratory distress appreciated Abdomen/GI: Non distended Back: Normal ROM Skin: General appearance color normal MS/ Extremity: Moves all extremities, no obvious deformities appreciated, no edema noted to the lower extremities Neuro: Awake and alert Psych: Behavior is normal, Mood is normal, Patient is cooperative and pleasant Vital Signs: 13:34 BP 127 / 71; Pulse 59; Resp 20; Temp 98.4(O); Pulse Ox 100% on R/A; Weight 165.56 kg; hb Height 6 ft. 7 in. (200.66 cm); Pain 4/10; 14:26 BP 130 / 65; Pulse 42; Resp 20; Pulse Ox 97% on R/A; ll1 14:44 BP 121 / 83; Pulse 45; Resp 20; Pulse Ox 98% on R/A; ll1 15:30 BP 129 / 88; Pulse 50; Resp 20; Temp 98.5; Pulse Ox 97% on R/A; ll1 16:30 BP 102 / 54; Pulse 68; Resp 20; Pulse Ox 95% on R/A; ll1 17:15 BP 112 / 34; Pulse 45; Resp 20; Pulse Ox 96% on R/A; ll1 18:00 BP 128 / 49; Pulse 48; Resp 19; Pulse Ox 95% on R/A; ll1 19:00 BP 133 / 84; Pulse 59; Resp 17; Pulse Ox 99% ; kd3 21:00 BP 145 / 64; Pulse 48; Resp 19; Pulse Ox 98% on R/A; kd3 22:00 BP 171 / 57; Pulse 57; Resp 16; Pulse Ox 99% on R/A; kd3 23:09 Temp 100.1(O); kd3 23:10 BP 143 / 68; Pulse 52; Resp 19; Pulse Ox 94% on R/A; kd3 13:34 Body Mass Index 41.12 (165.56 kg, 200.66 cm) hb MDM: 13:31 Patient medically screened. [facility] 15:27 Data reviewed: vital signs, nurses notes. Counseling: I had a detailed discussion with emily the patient and/or guardian regarding: the historical points, exam findings, and any diagnostic results supporting the discharge/admit diagnosis. 16:18 Counseling: I had a detailed discussion with the patient and/or guardian regarding: lab [facility] results, radiology results, the need for further work-up and treatment in the hospital, the need to transfer to another facility. ED course: The patient was discussed with his CV surgeon whom recommended transfer due to sepsis and recent aortic valve repair.. ED course: Source of infection is pneumonia, SIRS criteria not met, platelet count less than 100,000.. 02/17 13:39 Order name: CBC with Diff; Complete Time: 14:09 [facility] 02/17 13:39 Order name: CMP; Complete Time: 14:25 [facility] 02/17 13:39 Order name: Lactate w/ 2H reflex if indic.; Complete Time: 14:26 [facility] 02/17 13:39 Order name: Blood Culture Adult (2) [facility] 02/17 13:39 Order name: COVID-19/FLU A+B; Complete Time: 14:50 [facility] 02/17 14:26 Order name: Troponin High Sensitivity; Complete Time: 15:12 [facility] 02/17 13:39 Order name: Saline Lock; Complete Time: 13:51 [facility] 02/17 13:39 Order name: CT Head Brain wo Cont; Complete Time: 14:25 [facility] 02/17 13:40 Order name: CT Chest Wo Con; Complete Time: 14:41 [facility] 02/17 20:30 Order name: Troponin High Sensitivity; Complete Time: 21:59 [facility] 02/17 22:25 Order name: Urine Dipstick-Ancillary; Complete Time: 11:00 [facility] 02/17 13:40 Order name: Urine Dipstick-Ancillary (obtain specimen); Complete Time: 22:25 [facility] Administered Medications: 14:44 Drug: Zosyn (piperacillin-tazobactam) 3.375 grams Route: IVPB; Infused Over: 60 mins; ll1 Site: right antecubital; 15:15 Follow up: Response: No adverse reaction; IV Status: Completed infusion; IV Intake: ll1 100ml 15:05 Drug: NS 0.9% 1000 ml Route: IV; Rate: 1 bolus; Site: right antecubital; ll1 18:21 Follow up: Response: No adverse reaction; IV Status: Completed infusion; IV Intake: ll1 1000ml 15:20 Drug: Acetaminophen 1000 mg Route: PO; ll1 18:21 Follow up: Response: No adverse reaction ll1 Disposition: 02/18 21:34 Co-signature as Attending Physician, Ismael Gandara MD I agree with the assessment and rt plan of care. Disposition Summary: 02/17/22 15:40 Hospitalization Ordered Hospitalization Status: Inpatient Admission gaby Provider: Abhay Sharma Condition: Stable jmm Problem: new jmm Symptoms: are unchanged jmm Bed/Room Type: Standard [facility] Location: [facility] ER HOLD(02/17/22 18:14) [facility] Room Assignment: ERHOLD-(02/17/22 18:14) ja Diagnosis - Community-acquired pneumonia jmm - Sepsis jmm Discharge Instructions: - Discharge Summary Sheet ll1 Forms: - Medication Reconciliation Form jmm - SBAR form ll1 Signatures: Dispatcher [employer] EDMS Wagner Reich PA PA m Dre Poon, ELECTRICAL CALIBRATOR-C ELECTRICAL CALIBRATOR-Cla1 Renetta Alvarez RN RN Jeremías Ledbetter RN RN ja1 Thomas Muse RN RN 1 Ismael Gandara MD MD rt Corrections: (The following items were deleted from the chart) 02/17 18:14 15:40 Telemetry/MedSurg (Inpatient) [place] [address] 18:14 15:40 [place] [address]
--- NOTE | 2022-02-17 15:41 | ER ---
Nurse's Notes [facility] [place] Name: Dwight Flaherty Age: 76 yrs Sex: Male : 1945 Arrival Date: 02/17/2022 Time: 13:20 Bed 19 Private MD: Diagnosis: Community-acquired pneumonia;Sepsis Presentation: 02/17 13:34 Chief complaint: Fever, chills, headache, cough, and generalized weakness x 3 days. hb TMAX 102.9. 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 Coronavirus screen: Client presents with at least one sign or symptom that may indicate coronavirus-19. Standard/surgical mask placed on the client. Provider contacted for isolation considerations. Ebola Screen: No symptoms or risks identified at this time. Risk Assessment: Do you want to hurt yourself or someone else? Patient reports no desire to harm self or others. Onset of symptoms was February 15, 2022. 13:34 Method Of Arrival: Ambulatory hb 13:34 Acuity: GENO 3 hb 13:46 Initial Sepsis Screen: Does the patient meet any 2 criteria? No. Patient's initial ll1 sepsis screen is negative. Does the patient have a suspected source of infection? Yes: Productive cough/pneumonia. 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 - Social history:: Smoking status: Patient denies any tobacco usage or history of. Screenin:12 [facility] ED Fall Risk Assessment (Adult) Impaired Gait Yes (1 pt) Mobility Assist ll1 Device Used Yes (1 pt) Score/Fall Risk Level 0 - 2 = Low Risk Oriented to surroundings, Maintained a safe environment, Educated pt \T\ family on fall prevention, incl call for assistance when getting out of bed, Hourly rounding (assess needs \T\ fall precautionary measures) done. Abuse screen: Denies threats or abuse. Nutritional screening: No deficits noted. Tuberculosis screening: No symptoms or risk factors identified. Assessment: 13:40 General: Appears in no apparent distress. Behavior is calm, cooperative, appropriate ll1 for age. General: fever. Pain: Complains of pain in head Quality of pain is described as aching. Neuro: Reports headache weakness. Cardiovascular: No deficits noted. Respiratory: Reports cough that is. Musculoskeletal: Reports pain in body aches. 14:26 Reassessment: No changes from previously documented assessment. Patient and/or family ll1 updated on plan of care and expected duration. Pain level reassessed. Patient is alert, oriented x 3, equal unlabored respirations, skin warm/dry/pink. 14:45 Reassessment: No changes from previously documented assessment. Patient and/or family ll1 updated on plan of care and expected duration. Pain level reassessed. Patient is alert, oriented x 3, equal unlabored respirations, skin warm/dry/pink. 15:20 Reassessment: No changes from previously documented assessment. Patient and/or family ll1 updated on plan of care and expected duration. Pain level reassessed. Patient is alert, oriented x 3, equal unlabored respirations, skin warm/dry/pink. 16:15 Reassessment: No changes from previously documented assessment. Patient and/or family ll1 updated on plan of care and expected duration. Pain level reassessed. Patient is alert, oriented x 3, equal unlabored respirations, skin warm/dry/pink. 17:00 Reassessment: No changes from previously documented assessment. Patient and/or family ll1 updated on plan of care and expected duration. Pain level reassessed. moved into hospital bed. ED HOLD now. 18:00 Reassessment: No changes from previously documented assessment. Patient and/or family ll1 updated on plan of care and expected duration. Pain level reassessed. Patient is alert, oriented x 3, equal unlabored respirations, skin warm/dry/pink. 23:06 Reassessment: Report called. Pt updated on plan to transfer. General: Appears in no kd3 apparent distress. Behavior is calm, cooperative. Pain: Denies pain. Neuro: Level of Consciousness is awake, alert, obeys commands, Oriented to person, place, time, situation. Cardiovascular: Patient's skin is warm and dry. Respiratory: Airway is patent Trachea midline Respiratory effort is even, unlabored, Respiratory pattern is regular, symmetrical. Vital Signs: 13:34 BP 127 / 71; Pulse 59; Resp 20; Temp 98.4(O); Pulse Ox 100% on R/A; Weight 165.56 kg; hb Height 6 ft. 7 in. (200.66 cm); Pain 4/10; 14:26 BP 130 / 65; Pulse 42; Resp 20; Pulse Ox 97% on R/A; ll1 14:44 BP 121 / 83; Pulse 45; Resp 20; Pulse Ox 98% on R/A; ll1 15:30 BP 129 / 88; Pulse 50; Resp 20; Temp 98.5; Pulse Ox 97% on R/A; ll1 16:30 BP 102 / 54; Pulse 68; Resp 20; Pulse Ox 95% on R/A; ll1 17:15 BP 112 / 34; Pulse 45; Resp 20; Pulse Ox 96% on R/A; ll1 18:00 BP 128 / 49; Pulse 48; Resp 19; Pulse Ox 95% on R/A; ll1 19:00 BP 133 / 84; Pulse 59; Resp 17; Pulse Ox 99% ; kd3 21:00 BP 145 / 64; Pulse 48; Resp 19; Pulse Ox 98% on R/A; kd3 22:00 BP 171 / 57; Pulse 57; Resp 16; Pulse Ox 99% on R/A; kd3 23:09 Temp 100.1(O); kd3 23:10 BP 143 / 68; Pulse 52; Resp 19; Pulse Ox 94% on R/A; kd3 13:34 Body Mass Index 41.12 (165.56 kg, 200.66 cm) hb ED Course: 13:20 Patient arrived in ED. rg4 13:22 Wagner Reich PA is PHCP. [facility] 13:22 Ismael Gandara MD is Attending Physician. jm 13:31 Thomas Muse, PUMA is Primary Nurse. ll1 13:31 Arm band placed on Patient placed in an exam room, on a stretcher. ll1 13:36 Triage completed. hb 13:48 No provider procedures requiring assistance completed. Missed attempt(s): 22 gauge in ll1 right forearm. Bleeding controlled, band aid applied, catheter tip intact. 13:50 Inserted saline lock: 22 gauge in right hand, using aseptic technique. Blood collected. ll1 13:51 Blood Culture Adult (2) Sent. zm 13:55 CT Head Brain wo Cont In Process Unspecified. EDMS 13:57 CT Chest Wo Con In Process Unspecified. EDMS 14:12 Patient has correct armband on for positive identification. Bed in low position. Call ll1 light in reach. Side rails up X 1. Client placed on continuous cardiac and pulse oximetry monitoring. NIBP monitoring applied. 14:44 Troponin High Sensitivity Sent. ll1 15:37 Abhay Sharma MD is Hospitalizing Provider. m 18:15 Patient admitted, IV remains in place. ll1 19:12 Primary Nurse role handed off by Thomas Muse, PUMA mw2 22:04 Initiated transfer with Nereyda from [facility]. rv1 22:12 Lety Parada, PUMA is Primary Nurse. kd3 22:19 Connected Dre Poon NP with the hospitalist from [facility]. rv1 22:27 Administrative approval given by Nereyda Perez/ patient has been accepted to [address] to bed 1142/ Dr. Denny accepted the patient in transfer/ report to be called to [phone]. 23:07 Inserted saline lock: 22 gauge in right forearm, using aseptic technique. kd3 Administered Medications: 14:44 Drug: Zosyn (piperacillin-tazobactam) 3.375 grams Route: IVPB; Infused Over: 60 mins; ll1 Site: right antecubital; 15:15 Follow up: Response: No adverse reaction; IV Status: Completed infusion; IV Intake: ll1 100ml 15:05 Drug: NS 0.9% 1000 ml Route: IV; Rate: 1 bolus; Site: right antecubital; ll1 18:21 Follow up: Response: No adverse reaction; IV Status: Completed infusion; IV Intake: ll1 1000ml 15:20 Drug: Acetaminophen 1000 mg Route: PO; ll1 18:21 Follow up: Response: No adverse reaction ll1 Medication: 14:13 VIS not applicable for this client. ll1 Intake: 15:15 IV: 100ml; Total: 100ml. ll1 18:21 IV: 1000ml; Total: 1100ml. ll1 Outcome: 15:40 Decision to Hospitalize by Provider. jmm 18:15 Admitted to ER Hold. Please see [facility] for further documentation. ll1 18:15 Condition: stable 18:15 Instructed on the need for admit. 23:37 Patient left the ED. kd3 Signatures: Dispatcher [employer] EDMS Wagner Reich PA PA jmm Baxter, Heather, RN RN Annette Bourgeois 4 Denilson Hampton 2 Thomas Muse RN RN ll1 Lety Parada RN RN kd3 Yoly Roberts Rebecca [facility]
[2022-02-17] MEDS ORDERED: ALBUTEROL 2.5 MG/3 ML NEB SOL NEB PRN (18:23)
--- NOTE | 2022-02-17 18:51 | P.HP ---
Certification for Inpatient Patient admitted to: Inpatient With expected LOS: >2 Midnights Patient will require the following post-hospital care: None Practitioner: I am a practitioner with admitting privileges, knowledge of patient current condition, hospital course, and medical plan of care. Services: Services provided to patient in accordance with Admission requirements found in Title 42 Section 412.3 of the Code of Federal Regulations <Ricky Conte - Last Filed: 02/17/22 18:46> Patient History Date of Service: 02/17/22 Reason for admission: Community Acquired Pneumonia History of Present Illness: Patient is a 76-year-old male with a past medical history significant for obesity, hypertension, DM 2 with neuropathy, lymphedema, osteoarthritis, gout, BALWINDER, HLD, GERD CKD who presents with complaint of fever with T-max 102 F, shortness of breath, chills, cough with blood tinged sputum, dizziness, decreas ed appetite, intermittent nausea and generalized weakness that has been ongoing since Monday. Patient was recently discharged from the ER on 02/16/22 for similar symptoms. Patient reported associated signs and symptoms of lightheadedness, poor gait, cough, rhinorrhea, and generalized malaise with near fall episode. Patient denies any other signs or symptoms. He did take Tylenol which reduced his fever down to 99 F. Other symptoms are aggravated or relieved by nothing. Home medications list reviewed: Yes - Past Medical/Surgical History Diabetic: Yes -: Psoriasis -: Chronic kidney disease, Stage 3, Nephrology-Dr. Holt -: HTN -: Osteoarthritis -: Lymphedema -: DM Neuropathy -: Gout -: Obesity -: Obstructive sleep apnea -: Hyperlipidemia -: GERD -: History of gastric ulcer -: joint replacements - both knees -: gall bladder removed -: both hands surgery + right fingers -: punji stick removal Psychosocial/ Personal History: . He has 2 stepchildren, 1 child, and another adopted. He is retired. - Family History Father -: Heart disease - Social History Smoking Status: Former smoker Alcohol use: No CD- Drugs: No Caffeine use: Yes <Ricky Conte - Last Filed: 02/17/22 18:46> Date of Service: 02/18/22 <Abhay Sharma - Last Filed: 02/18/22 07:16> Allergies No Known Allergies Allergy (Verified 08/13/21 13:49) Home Medications: Allopurinol 300 mg PO DAILY 04/18/19 Amlodipine Besylate 10 mg PO DAILY 04/18/19 Apremilast [Otezla] 30 mg PO BID 04/18/19 Fluticasone Furoate [Arnuity Ellipta] 100 mcg PO DAILY 04/18/19 Furosemide [Lasix*] 40 mg PO DAILY 04/18/19 Gabapentin 300 mg PO DAILY 04/18/19 Glipizide [Glipizide ER] 10 mg PO BID 04/18/19 Hydralazine HCl [Apresoline] 75 mg PO Q8H 04/18/19 Insulin Detemir [Levemir Flextouch] 130 units SQ DAILY 04/18/19 Liraglutide [Victoza 2-Malvin] 1.8 units SQ DAILY 04/18/19 Omeprazole [Prilosec] 40 mg PO DAILY 04/18/19 Rosuvastatin [Crestor*] 10 mg PO DAILY 04/18/19 Gabapentin 600 mg PO BEDTIME 04/19/19 lisinopriL [Prinivil*] 20 mg PO DAILY #30 tab 04/22/19 Aspirin [Ab Chewable Aspirin] 81 mg PO DIRECTED 01/11/22 Baclofen 10 mg PO DAILY 01/11/22 Calcium` 600 mg PO DAILY 01/11/22 Clopidogrel Bisulfate [Plavix] 75 mg PO DAILY 01/11/22 Ferrous Sulfate [Iron] 325 mg PO DAILY 01/11/22 Magnesium Oxide [Magnesium] 250 mg PO DAILY 01/11/22 [place]-3/Dha/Epa/Fish Oil [Fish Oil 1,000 mg Softgel] 1 each PO DAILY 01/11/22 Vit D 2,000 units PO DAILY 01/11/22 Duloxetine HCl 90 mg PO DAILY 01/12/22 Benzonatate [Tessalon Perle*] 100 mg PO TID PRN #30 cap 01/13/22 levoFLOXacin [Levaquin*] 750 mg PO Q24H #7 tab 01/13/22 Review of Systems 10-point ROS is otherwise unremarkable General: Fever, Chills, Weakness Respiratory: Cough, Shortness of Breath, Hemoptysis, SOB with Excertion Cardiovascular: Orthopnea, Edema Gastrointestinal: Nausea, No Distention Neurological: Weakness, Change in Speech <[place],Ricky - Last Filed: 02/17/22 18:46> Physical Examination - Vital Signs Temperature: 98.3 F Blood Pressure: 124/46 Pulse: 50 Respirations: 22 Pulse Ox (%): 93 - Physical Exam General: Alert, Oriented x3, Cooperative HEENT: Normocephalic, PERRLA Neck: Supple, 2+ carotid pulse no bruit, JVD not distended Respiratory: Diminished Cardiovascular: Normal pulses, Edema Capillary refill: <2 Seconds Gastrointestinal: Normal bowel sounds, No tenderness Musculoskeletal: Swelling Integumentary: Skin breakdown, Erythema Neurological: Abnormal gait Lymphatics: No axilla or inguinal lymphadenopathy - Studies Laboratory Data (last 24 hrs) 02/17/22 13:45: Sodium 138, Potassium 4.2, BUN 36 H, Creatinine 2.34 H, Glucose 142 H, Total Bilirubin 1.1 H, AST 37, ALT 26, Alkaline Phosphatase 62 02/17/22 13:45: WBC 9.30, Hgb 9.5 L, Hct 27.7 L, Plt Count 57 L <Robert Conteinald - Last Filed: 02/17/22 18:46> - Studies Laboratory Data (last 24 hrs) 02/17/22 13:45: Sodium 138, Potassium 4.2, BUN 36 H, Creatinine 2.34 H, Glucose 142 H, Total Bilirubin 1.1 H, AST 37, ALT 26, Alkaline Phosphatase 62 02/17/22 13:45: WBC 9.30, Hgb 9.5 L, Hct 27.7 L, Plt Count 57 L Microbiology Data (last 24 hrs): 02/17/22 13:45 Blood - Blood Blood Culture Gram Stain - Final 02/17/22 13:45 Blood - Blood Gram Stain - Final <Abhay Sharma - Last Filed: 02/18/22 07:16> Assessment and Plan - Plan Plan --Community Acquired Pneumonia complicated by gram positive cocci bacteremia CT Thorax Wo Con- Faint ground-glass area in the right upper lobe measuring 4.8 cm could represent early or mild pneumonia. Neoplasm can occasionally have this appearance. Recommend 3 month follow up chest CT. -Blood cultures- gram positive cocci -Vancomycin 1 gram x1- pharmacy to dose remaining dose -Zosyn 2.25 mg Q8 - Neb treatment with albuterol\Atrovent and O2 therapy - Infectious disease consulted- Talked to Dr. Ruiz, recommendations appreciated -Demand Ischemia -Troponin 70.7 - Trend troponins Q6 X3 -Cardiology consulted- recommendation appreciated -ASA 325 x 1 - ASA 81 mg daily, Atorvastatin 40 mg HS -Possible Lung Mass - CT Thorax Wo Con- Faint ground-glass area in the right upper lobe measuring 4.8 cm could represent early or mild pneumonia. Neoplasm can occasionally have this appearance. Recommend 3 month follow up chest [address]. - Pulmonology consulted for possible bronchoscopy- recommendations appreciated -KDIGO Stage I TORRES on CKD -Creatinine 2.34, BUN 36, GFR 28 - Baseline creatinine 1.4-1.5 - Nephrology consulted. Will further recommendations. Infective Endocarditis -History of mitral valve replacement - Cardiology consulted- recommendation appreciated -ECHO, MILTON ordered -DM2/Hyperglycemia . -BS monitoring AC/HS with sliding scale insulin -Hyperlipidemia -Continue statin. -DVT prophylaxis with heparin subQ. Discharge Plan: Home Plan to discharge in: Greater than 2 days - Advance Directives Does patient have a Living Will: Yes Does patient have a Durable POA for Healthcare: No - Code Status/Comfort Care Code Status Assessed: Yes Code Status: Do Not Attempt Resuscitat <Ricky Conte - Last Filed: 02/17/22 18:46> Physician Review: Patient Assessed, Agree with Above Assessment and Plan Physician Review Additional Text: Correction to diagnoses: # Concern for Possible Infective Endocarditis secondary to Gram-Positive Bacteremia Additionally, his aortic (not mitral) valve was replaced in September 2021. Abhay Sharam M.D. <Abhay Sharma - Last Filed: 02/18/22 07:16>
[2022-02-17] MEDS ORDERED: ASPIRIN EC 81 MG TAB PO ONE (19:00)
[2022-02-17] MEDS ORDERED: VANCOMYCIN 1.75 GM in NA CHLORIDE 0.9% 500 ML IVPB SCH (20:00)
[2022-02-17] MEDS ORDERED: PIPER TAZO 3.375 GM in NA CHLORIDE 0.9% 100 ML IV SCH ×2 (20:00→21:00)
[2022-02-17] MEDS ORDERED: INSULIN -REGULAR HUMAN 50 UNIT/0.5 ML ML SQ SCH (21:00)
[2022-02-17] MEDS ORDERED: HEPARIN 5000 UNIT/ML 1 ML VIAL SQ SCH (21:00)
[2022-02-17 22:25] LABS: Urine Blood Negative (Negative); Urine Glucose Negative (Negative); Urine Protein 2+ (Negative); Urine Specific Gravity 1.025 (1.005-1.030)
[2022-02-17] MEDS ORDERED: VANCOMYCIN 1 GM/VIAL ONE (22:32)
[2022-02-17] MEDS ORDERED: NA CHLORIDE 0.9% 500 ML ONE (22:33)
[2022-02-17] MEDS ORDERED: VANCOMYCIN 500 MG/VIAL ONE (22:33)
--- NOTE | 2022-02-17 23:44 | P.DS ---
Admission Date: 02/17/22 Discharge Date: 02/17/22 Disposition: TRANSFER TO [facility] Discharge Condition: SERIOUS Reason for Admission: Bacteremia Consultations: Cardiology/CT surgery [facility] Procedures: CT head 02/17/2022 FINDINGS: No intracranial hemorrhage, hydrocephalus or extra-axial fluid collection.No areas of brain edema or evidence of midline shift. The paranasal sinuses and mastoids are clear. The calvarium is intact. IMPRESSION: No acute intracranial abnormality CT chest without contrast 02/18/2020 FINDINGS: Chest Wall: No suspicious thyroid nodules or pathologic lymphadenopathy. Lungs: Faint right upper lobe ground-glass opacity measuring approximately 4.8 cm. No consolidation. Edema. Pleura: No significant effusions or pneumothorax. Mediastinum/shania: No pathologic lymphadenopathy. Pulmonary arteries/Aorta: Limited evaluation without contrast. No aortic aneurysm. Heart: No significant pericardial effusion. Normal heart size. Aortic valve prosthesis. Mitral annular calcifications. Upper abdomen: No acute abnormality. Hepatic steatosis. Benign left adrenal nodule. Bones: No acute abnormality. All CT scans are performed using dose optimization technique as appropriate and may include automated exposure control or mA/KV adjustment according to patient size. IMPRESSION: Faint ground-glass area in the right upper lobe measuring 4.8 cm could represent early or mild pneumonia. Neoplasm can occasionally have this appearance. Recommend 3 month follow up chest [address]. Brief History of Present Illness: H/P Patient is a 76-year-old male with a past medical history significant for obesity, hypertension, DM 2 with neuropathy, lymphedema, osteoarthritis, gout, BALWINDER, HLD, GERD CKD who presents with complaint of fever with T-max 102 F, shortness of breath, chills, cough with blood tinged sputum, dizziness, decreased appetite, intermittent nausea and generalized weakness that has been ongoing since Monday. Patient was recently discharged from the ER on 02/16/22 for similar symptoms. Patient reported associated signs and symptoms of lightheadedness, poor gait, cough, rhinorrhea, and generalized malaise with near fall episode. Patient denies any other signs or symptoms. He did take Tylenol which reduced his fever down to 99 F. Other symptoms are aggravated or relieved by nothing. Hospital Course: Patient was admitted for fever, bacteremia, concern for right upper lobe pneumonia, he initially declined transfer to [facility] as there was concern given his recent TAVR procedure in September with his gram-positive bacteremia he may require services including CT surgery. After discussing further with attending physician patient was amendable to transfer to [facility] for further evaluation from CT surgery, cardiology in regards to his gram-positive bacteremia with recent TAVR. Case was discussed with Dr. Brent Nogueira at [facility], patient was accepted to MedSurg/telemetry floor. Dr. Sharma discussed CT findings on CT chest "4.8 cm faint groundglass area in the right upper lobe which could represent early or mild pneumonia versus neoplasm" with patient and patient's daughter, recommendation for follow-up CT versus bronchoscopy also discussed. Patient transferred to [facility]. Plan --Community Acquired Pneumonia complicated by gram positive cocci bacteremia CT Thorax Wo Con- Faint ground-glass area in the right upper lobe measuring 4.8 cm could represent early or mild pneumonia. Neoplasm can occasionally have this appearance. Recommend 3 month follow up chest CT. -Blood cultures- gram positive cocci -Vancomycin 1 gram x1- pharmacy to dose remaining dose -Zosyn 2.25 mg Q8 - Neb treatment with albuterol\\Atrovent and O2 therapy - Infectious disease consulted- Talked to Dr. Ruiz, recommendations appreciated -Demand Ischemia -Troponin 70.7 - Trend troponins Q6 X3 -Cardiology consulted- recommendation appreciated -ASA 325 x 1 - ASA 81 mg daily, Atorvastatin 40 mg HS -Possible Lung Mass - CT Thorax Wo Con- Faint ground-glass area in the right upper lobe measuring 4.8 cm could represent early or mild pneumonia. Neoplasm can occasionally have this appearance. Recommend 3 month follow up chest [address]. - Pulmonology consulted for possible bronchoscopy- recommendations appreciated -KDIGO Stage I TORRES on CKD -Creatinine 2.34, BUN 36, GFR 28 - Baseline creatinine 1.4-1.5 - Nephrology consulted. Will further recommendations. Infective Endocarditis -History of aortic valve replacement - Cardiology consulted- recommendation appreciated -ECHO, MILTON ordered -DM2/Hyperglycemia . -BS monitoring AC/HS with sliding scale insulin -Hyperlipidemia -Continue statin. -DVT prophylaxis with heparin subQ. Vital Signs/Physical Exam: Temp Pulse Resp BP Pulse Ox 98.3 F 50 22 H 124/46 L 93 02/17/22 19:34 02/17/22 19:34 02/17/22 19:34 02/17/22 19:34 02/17/22 19:34 General: Alert, In no apparent distress, Oriented x3, Obese HEENT: Atraumatic, PERRLA, EOMI Neck: Supple, JVD not distended Respiratory: Clear to auscultation bilaterally, Normal air movement Cardiovascular: No edema, Regular rate/rhythm, Normal S1 S2 Capillary refill: <2 Seconds Gastrointestinal: Normal bowel sounds, No tenderness Musculoskeletal: No tenderness Integumentary: No rashes Neurological: Normal speech, Normal tone, Normal affect Laboratory Data at Discharge: WBC 9.30 K/uL (4.3-10.9) 02/17/22 13:45 Hgb 9.5 g/dL (13.6-17.9) L 02/17/22 13:45 Hct 27.7 % (39.6-49.0) L 02/17/22 13:45 Plt Count 57 K/uL (152-406) L 02/17/22 13:45 Sodium 138 mmol/L (136-145) 02/17/22 13:45 Potassium 4.2 mmol/L (3.5-5.1) 02/17/22 13:45 BUN 36 mg/dL (7-18) H 02/17/22 13:45 Creatinine 2.34 mg/dL (0.70-1.30) H 02/17/22 13:45 Glucose 142 mg/dL (74-106) H 02/17/22 13:45 Total Bilirubin 1.1 mg/dL (0.2-1.0) H 02/17/22 13:45 AST 37 U/L (15-37) 02/17/22 13:45 ALT 26 U/L (16-61) 02/17/22 13:45 Alkaline Phosphatase 62 U/L (45-117) 02/17/22 13:45 Home Medications: Allopurinol 300 mg PO DAILY 04/18/19 Amlodipine Besylate 10 mg PO DAILY 04/18/19 Apremilast [Otezla] 30 mg PO BID 04/18/19 Fluticasone Furoate [Arnuity Ellipta] 100 mcg PO DAILY 04/18/19 Furosemide [Lasix*] 40 mg PO DAILY 04/18/19 Gabapentin 300 mg PO DAILY 04/18/19 Glipizide [Glipizide ER] 10 mg PO BID 04/18/19 Hydralazine HCl [Apresoline] 75 mg PO Q8H 04/18/19 Insulin Detemir [Levemir Flextouch] 130 units SQ DAILY 04/18/19 Liraglutide [Victoza 2-Malvin] 1.8 units SQ DAILY 04/18/19 Omeprazole [Prilosec] 40 mg PO DAILY 04/18/19 Rosuvastatin [Crestor*] 10 mg PO DAILY 04/18/19 Gabapentin 600 mg PO BEDTIME 04/19/19 lisinopriL [Prinivil*] 20 mg PO DAILY #30 tab 04/22/19 Aspirin [Ab Chewable Aspirin] 81 mg PO DIRECTED 01/11/22 Baclofen 10 mg PO DAILY 01/11/22 Calcium` 600 mg PO DAILY 01/11/22 Clopidogrel Bisulfate [Plavix] 75 mg PO DAILY 01/11/22 Ferrous Sulfate [Iron] 325 mg PO DAILY 01/11/22 Magnesium Oxide [Magnesium] 250 mg PO DAILY 01/11/22 [place]-3/Dha/Epa/Fish Oil [Fish Oil 1,000 mg Softgel] 1 each PO DAILY 01/11/22 Vit D 2,000 units PO DAILY 01/11/22 Duloxetine HCl 90 mg PO DAILY 01/12/22 Benzonatate [Tessalon Perle*] 100 mg PO TID PRN #30 cap 01/13/22 levoFLOXacin [Levaquin*] 750 mg PO Q24H #7 tab 01/13/22 Physician Discharge Instructions: Continue with further care at [facility] Diet: ADA Followup: NONE,NONE [Primary Care Provider] - Time spent managing pt's care (in minutes): 30
[2022-02-18 00:21] VITALS: TEMP 100.1
[2022-02-18 00:22] VITALS: BP 143/68; O2SAT 94
[2022-02-18] MEDS ORDERED: PIPER TAZO 3.375 GM in NA CHLORIDE 0.9% 100 ML IV SCH (01:00)
[2022-02-18] MEDS ORDERED: PIPER TAZO 2.25 GM in NA CHLORIDE 0.9% 50 ML IV SCH (01:00)
== END 2022-02-17 23:20 | disposition short-term general hospital (02) | DRG 871 ==
LOC: ER 13:16 → ERHOLD 18:13
PROVIDERS: ADMIT Internal Medicine; ATTEND Internal Medicine
DX: A41.81 Sepsis due to Enterococcus (principal); I33.0 Acute and subacute infective endocarditis; J18.9 Pneumonia, unspecified organism; Z16.30 Resistance to unspecified antimicrobial drugs; Z68.41 Body mass index [BMI] 40.0-44.9, adult; C34.11 Malignant neoplasm of upper lobe, right bronchus or lung; I24.8 Other forms of acute ischemic heart disease; N17.9 Acute kidney failure, unspecified; E66.9 Obesity, unspecified; I12.9 Hypertensive chronic kidney disease with stage 1 through stage 4 chronic kidney disease, or unspecified chronic kidney disease; N18.9 Chronic kidney disease, unspecified; E11.22 Type 2 diabetes mellitus 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chronic kidney disease; E11.40 Type 2 diabetes mellitus 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neuropathy, unspecified; E11.65 Type 2 diabetes mellitus with hyperglycemia; E78.5 Hyperlipidemia, unspecified; K21.9 Gastro-esophageal reflux disease without esophagitis; M19.90 Unspecified osteoarthritis, unspecified site; Z95.2 Presence of prosthetic heart valve; Z79.4 Long term (current) use of insulin; Z79.84 Long term (current) use of oral hypoglycemic drugs; Z79.82 Long term (current) use of aspirin; Z79.02 Long term (current) use of antithrombotics/antiplatelets; Z90.49 Acquired absence of other specified parts of digestive tract; Z79.899 Other long term (current) drug therapy; Z87.891 Personal history of nicotine dependence; Z96.653 Presence of artificial knee joint, bilateral; Z20.822 Contact with and (suspected) exposure to COVID-19
CPT/HCPCS: 0240U; 36415; 70450; 71045; 71250; 80053; 81003; 81015; 83605; 84484; 85025; 87040; 87077; 87186; 87205; 93005; 96361; 96365; 99283; 99285; J2543; J3370; J7030; J7040

== ENCOUNTER 2022-04-07 23:37 | Inpatient (IN) | payer OTHER ==
--- OUTSIDE RECORDS SUMMARY | 2022-04-07 23:50 | XMS REPORT | Continuity of Care Document ---
:1945 Author Organization [facility] t Address [address] [place] [address] Care Team Providers Name Role Phone Diaz, Yann Suárez Attending Clinician Unavailable LILIAN DELEON Attending Clinician Unavailable Sudeep Denny MD Attending Clinician [phone] Eligio Roach MD Attending Clinician SUDEEP DENNY Attending Clinician Unavailable ELIGIO ROACH Attending Clinician Unavailable Leigh Mejia CRNA Attending Clinician Prashant Rayo MD Attending Clinician [phone] Shakila MAJOR, Geneva May Attending Clinician Antonino BARTHOLOMEW, Maryse Attending Clinician Unavailable Diya Rivera RN Attending Clinician Unavailable LILIAN DELEON Attending Clinician Unavailable Lilian Deleon MD Attending Clinician [phone] Ally MAJOR, Geovani Price Attending Clinician Kartik Killian MD Attending Clinician [phone] KARTIK KILLIAN Attending Clinician Unavailable Blayne BARTHOLOMEW, Bernarda Garrison Attending Clinician [phone] Neetu Shah Attending Clinician Unavailable Sam Paredes Attending Clinician SUDEEP DENNY Admitting Clinician Unavailable LILIAN DELEON Admitting Clinician Unavailable Yann Diaz Admitting Clinician Unavailable Payers Payer Name Policy Type Policy Number Effective Date Expiration Date S sean MEDICARE PART A [id number] \\[id number] - MEDICARE MEDICARE PLAN PPO [id number] [employer] GENERIC PPO - [id number] 2021 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 00:00:00 [employer]ETNA SENIOR [id number] 2021 2021 SUPPLEMENTAL 00:00:00 00:00:00 [facility] [id number] [facility] AETNA C1 [id number] [facility] MEDICARE NOVITAS MB [id number] [facility] AETNA C1 [id number] [facility] [id number] [facility] AETNA C1 [id number] [facility] Problems Condition Condition Condition Status Onset Resolution Last Treating Co mments Source Name Details Category Date Date Treatment Clinician Date Paroxysmal Paroxysmal Disease Active 2021-[address] atrial atrial 2-31 [facility] fibrillati fibrillati 00:00: Me dical on on [place] Bacteremia Bacteremia Disease Active 2021-[address] 2-23 [facility] 00:[facility]: Medical 00 Center LBBB (left LBBB (left Disease Active [facility] bundle bundle 9-15 College branch branch 00:00: of block) block) 00 Medicin post TAVR post TAVR e CKD CKD Disease Active [facility] (chronic (chronic 09-29 [facility] kidney kidney 00:00: Medical disease), disease), 00 Cent er stage III stage III Severe Severe Disease Active [facility] aortic aortic 09-29 [facility] stenosis stenosis 00:00: Medica l 00 Center S/P TAVR S/P TAVR Disease Active [facility] implant of implant of 09-29 [facility] S3U#29 on S3U#29 on 00:00: Medi carey 09/29/21 09/29/21 Center Bilateral Bilateral Disease Active [facility] carotid carotid 09-29 [facility] artery artery 00:00: Medical disease disease 00 Center S/P TAVR S/P TAVR Disease Active [facility] implant of implant of 03 [facility] S3U#29 on S3U#29 on 00:00: [facility] carey 09/29/21 09/29/21 Center Essential Essential Disease Active [facility] hypertensi hypertensi 803 [facility] on, benign on, benign 00:00: Me dical 00 Center H/O H/O Disease Active [facility] asbestosis asbestosis 30 [facility] lung lung 00:00: Medical disease disease 00 Center Chronic Chronic Disease Active [facility] venous venous 7-30 [facility] insufficie insufficie 00:00: Me dical ncy of ncy of 00 Center lower lower extremity extremity Morbid Morbid Disease Active [facility] obesity obesity 7-30 [facility] with BMI with BMI 00:00: Medica l of of 00 Center 40.0-44.9, 40.0-44.9, adult adult Gout Gout Disease Active [facility] 7-30 [facility] 00:00: Medical 00 Center CRLD CRLD Disease Active [facility] (chronic (chronic 730 [facility] restrictiv restrictiv 00:00: Me dical e lung e lung 00 Center disease) disease) History of History of Disease Active [facility] total left total left 30 [facility] knee knee 00:00: Medical replacemen replacemen 00 Ce nter t t (TKR)-2004 (TKR)-2004 Acute on Acute on Disease Active [facility] t chronic chronic 730 [facility] diastolic diastolic 00:00: [facility] CHF CHF 00 Center (congestiv (congestiv e heart e heart failure), failure), NYHA class NYHA class 3 3 Chronic Chronic Disease Active [facility] venous venous 7-30 [facility] insufficie insufficie 00:00: Me dical ncy ncy 00 Center Morbid Morbid Disease Active [facility] obesity obesity 7-30 [facility] with BMI with BMI 00:00: Medica l of of 00 Center 40.0-44.9, 40.0-44.9, adult adult Type 2 Type [address] [facility] diabetes diabetes 09-24 [facility] mellitus mellitus 00:00: Medica l 00 Center BALWINDER on BALWINDER on Disease Active [facility] CPAP CPAP 09-24 [facility] 00[facility]00: Medical 00 Center Psoriasis Psoriasis Disease Active [facility] 09-24 [facility] 00[facility]: Medical Center Osteoarthr Osteoarthr Disease Active [facility] itis itis 09-24 [facility] 00:00: Medical 00 Center Essential Essential Disease Active [facility] hypertensi hypertensi 09-24 [facility] on on 00:00: Medical Center Hyperlipid Hyperlipid Disease Active [facility] emia emia 09-24 [facility] 00:00: Medical 00 Center Type 2 Type [address] [facility] diabetes diabetes 09-24 [facility] mellitus mellitus 00:00: Medica l [place] Essential Essential Disease Active [facility] hypertensi hypertensi 09-24 [facility] on on 00:00: Medical 00 Center Hyperlipid Hyperlipid Disease Active [facility] emia emia 09-24 [facility] 00:00: Medical [place] Severe Severe Disease Active [facility] aortic aortic 09-23 College stenosis stenosis 00:00: of 00 Medicin e Primary Primary Disease Active [facility] hypertensi hypertensi 09-23 Co llege on on 00:00: Medicin e History of History of Disease Active [facility] total left total left 09-23 Co llege knee knee 00:00: of replacemen replacemen 00 Me dicin t t e (TKR)-2005 (TKR)-2005 Gout Gout Disease Active [facility] 28 College 00:00: of 00 Medicin e Asbestosis Asbestosis Disease Active [facility] (HCCode) (HCCode) 09-23 Colleg e (HCC) lung (HCC) lung 00:00: of disease disease 00 Medicin e CRLD CRLD Disease Active [facility] (chronic (chronic 09-23 Colleg e restrictiv restrictiv 00:00: of e lung e lung 00 Medicin disease) disease) e Chronic Chronic Disease Active [facility] venous venous 7-28 College insufficie insufficie 00:00: of ncy of ncy of 00 Medicin lower lower e extremity extremity Type II Type II Problem Active 2021-06-18 Emily rodarte diabetes diabetes 10-22 04:44:46 l mellitus mellitus 00:00: Herman rene without without 00 complicati complicati on on (disorder) (disorder) Active 10/23/2015 Problem 06/18/2021 [facility] Essential Problem Active 2021-06-18 Me moria tremor Essential 03-20 04:44:46 l (disorder) tremor 00:00: Herman rene (disorder) 00 Active 03/20/2015 Problem 06/18/2021 [facility] Neuropathy Neuropath Problem Active 2021-06-18 Memoria (disorder) y 04:44:46 l (disorder) n Active Problem 06/18/2021 [facility] 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 04:44:46 l s s [place] (disorder) (disorder) Active Problem 06/18/2021 [facility] Metal Metal Problem Active 2021-06-18 Memor ia foreign foreign 04:44:46 l body in body in [place] upper limb upper limb (disorder) (disorder) Active Problem 06/18/2021 [facility] [id number] [place] [id number] carotid Spirit stenosis - [facility] [id number] Vitamin D Problem Comm on deficiency Spirit - [facility] [id number] Chronic Problem Commo n diastolic Spirit congestive - [facility]I heart [facility] [id number] Chronic Problem Commo n heart Spirit failure - [facility] ejection [facility] Center Heart Murmur, Problem Common murmur cardiac Spirit - [facility] Gastroesop Chronic Problem Comm on hageal GERD Spirit reflux - CHI disease [facility] Iron Anemia, Problem Common deficiency iron Spirit anemia deficiency - [facility] Benign Hyperplast Problem Commo n neoplasm ic colon Spirit of colon polyp - [facility] [id number] Morbid Problem Commo n 9104 (severe) Spirit obesity - CHI due to [facility] [id number] Diabetic Problem Comm on polyneurop Spirit athy - CHI associated St with type [facility] 2 diabetes Medica l mellitus Center [id number] PSA Problem Common (psoriatic Spirit arthritis) - [facility] [id number] History of Problem Co mmon gout Spirit - [facility] [id number] PUD Problem Common (peptic Spirit ulcer - CHI disease) [facility] [id number] assisted Problem Com mon (current) Spirit use of - CHI insulin [facility] [id number] Chronic Problem Common obstructiv Spirit e - [facility] d COPD Center type [id number] Proteinuri Problem Com mon a, Spirit unspecifie - CHI d [facility] [id number] Type 2 [place] [address] diabetes Spirit mellitus - CHI with other diabetic [facility] kidney Medical complicati Center on [id number] 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 - CHI of left foot [facility] Aortic Aortic Problem Common valve valve Spirit disorder stenosis, - [facility]I nonrheumat [facility] [id number] Non-pressu Problem Co mmon re chronic Spirit ulcer of - [facility] other part St of left [facility] foot with Medical other Center specified severity [id number] Thrombocyt Problem Co mmon openia Spirit - [facility] [id number] Type 2 Problem Common diabetes Spirit mellitus - CHI 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[facility] nephropath Medica l y Center [id number] 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 - [facility] scalp and skin of [facility] neck [facility] [id number] Type 2 Problem Common diabetes Spirit mellitus - CHI with foot St ulcer [facility] [id number] Diabetes Problem Comm on mellitus Spirit due to - CHI underlying condition [facility] with foot Medical ulcer Center [id number] Edema of Problem Comm on lower Spirit extremity - CHI due to peripheral [facility] venous Medical insufficie Center ncy Allergies, Adverse Reactions, Alerts Allergy Allergy Status Severity Reaction(s) Onset Inactive Treating Comm ents Source Name Type Date Date Clinician No Known DA Active [facility] Allergie 05-25 Clear s 00:00: [place] 00 [facility] NO KNOWN Allergy Active [facility] Family History Family Member Diagnosis Comments Start Date Stop Date Source Natural brother Heart disease [facility] Natural brother Valvular heart [facility] Natural father Heart disease [facility] Natural father Heart failure [facility] Natural father Other [facility] Natural mother Alzheimer's disease C [facility] Natural mother Stroke [facility] Social History Social Habit Start Date Stop Date Quantity Comments Source History of Tobacco [facility] - Use [facility] History SDOH [facility] Alcohol Frequency Medical Center History SDOH [facility] Alcohol Std Drinks Medica l Center History SDOH [facility] Alcohol Binge Medical [facility] Alcohol intake 2022-02-26 2022-02-26 Current drinker [facility] 00:00:00 00:00:00 of alcohol Medical Center (finding) History [facility] 2022-02-18 2022-02-[address] [facility] Transport Med 00:00:00 00:00:[address] History [facility] 2022-02-18 2022-02-[address] [facility] Housing Unable to 00:00:00 00:00:00 Medical Center Pay History [facility] 2022-02-18 2022-02-[address] [facility] Housing Places 00:00:00 00:00:00 Medical Ce nter Lived History [facility] 2022-02-18 2022-02-[address] [facility] Housing Homeless 00:00:00 00:00:00 Medical Center Last Year Cigarettes smoked 2021-09-24 2021-09-[address] [facility] current (pack per 00:00:00 00:00:00 Medical Center day) - Reported Tobacco use and 2021-09-24 2021-09-[address] [facility] exposure 00:00:00 00:00:00 Medical Center History [facility] 2021-09-24 2021-09-[address] [facility] Alcohol Comment 00:00:00 00:00:00 Medical C enter Sex Assigned At [address] [facility] 00:00:00 00:00:00 Medical Center Smoking Status Start Date Stop Date Source Never smoked tobacco [facility] Social History 2021-06-15 15:08:2021-06-15 15:08:27 [facility] Medications Ordered Filled Start Stop Current Ordering Indication Dosage Frequency Signature Comments Components Source Medication Medication Date Date Medication? Clinician (SIG) Name Name Mykel Hogue 5 2022- No QD Eliquis 5 mg 5 mg mg 5 mg 04-06 08-07 mg 5 mg 00:00: 00:00 00 :00 ALEXA 0 Yes 1{tbl} 1 Tablet [facility] ASPIRIN EC 03-28 daily. [facility] LOW DOSE 81 16:32: of MG tablet 14 Medicin e Calcium Yes 1 tablet Jose Guadalupe Carbonate 03-28 with meals Yessica ege 1500 (600 16:32: of Ca) MG TABS 14 Medicin e Cholecalcif Yes 1{tbl} 1 Tablet. [facility] srinivasa 03-28 [facility] (VITAMIN D) 16:32: of 50 MCG 14 Medicin (2000 UT) e TABS Ferrous Yes 1{tbl} 1 Tablet. [place] [facility] Sulfate 03-28 [facility] (IRON) 325 16:32: of (65 Fe) MG 14 Medicin TABS e Magnesium Yes 1 tablet [facility] 250 MG TABS 03-28 with a Colleg e 16:32: meal of 14 Medicin e Multiple Yes daily. [facility] Vitamins-Mi 03-28 [facility] nerals 16:32: of (CENTRUM 14 Medicin SILVER) e TABS [place]-3 Yes 1 capsule [place] Fatty Acids 03-28 [facility] (FISH OIL) 16:32: of 1000 MG 14 Medicin CAPS e Apremilast Yes Take by [facility] (OTEZLA) 30 03-28 mouth College MG TABS 16:28: daily. of 26 Medicin e glipiZIDE Yes 10mg Take 10 mg [facility] (GLUCOTROL) 30 by mouth Yessica ege 10 MG CR 16:26: two times of tablet 42 daily. Medicin e carvedilol Yes 6.25mg Take 6.25 Jose Guadalupe (COREG) 1-18 mg by College 6.25 MG 00:00: mouth two of tablet 00 times Medicin daily. e Promethazin Promethazin 2022- No 10{ml_a TID Promethazi e HCl 6.25 e HCl 6.25 18 03-23 s_neede ne HCl MG/5ML MG/5ML 00:00: 00:00 d} 6.25 00 :00 MG/5ML Kenalog Kenalog No 40mg Common (Triamcinol (Triamcinol 1-13 S pirit one) one) 00:00: - [facility] Kenalog Kenalog No 40mg Common (Triamcinol (Triamcinol 1-13 S pirit one) one) 00:00: - CHI 00 [facility] Kenalog Kenalog No 40mg Common (Triamcinol (Triamcinol 1-13 S pirit one) one) 00:00: - [facility] Azithromyci Azithromyci 2022- No QD Azithromyc n 250 MG n 250 MG 03-11 in 250 MG 00:00: 00:00 00 :00 apremilast 2021-02 Yes 30mg Q.5D Take [address] (Otezla) 30 2-31 by mouth 2 [facility] mg Tab 10:10: (two) Medical 35 times Center daily . Missing or 2021-[address] [facility] Non-Formula 2-31 inhaler [facility]ukes ry 10:10: 100mcg, 1 Medical Medication [address] apixaban 2021-02 Yes 5mg Q.5D Take [address] (Eliquis) 5 2-31 by mouth 2 [facility] mg Tab 10:10: (two) Medical tablet 35 times Center daily. calcium 2021-02 Yes 1500mg QD Take [address] carbonate 2-31 tablets [facility] (TUMS EX) 00:00: (1,500 mg Med ical 300 mg Chew 00 total) by [place] ter mouth daily. glipiZIDE 2021-02- No 10mg Take [address] (GLUCOTROL) 2-30 12-30 by mouth 2 L ukes 10 MG 13:53: 00:00 (two) Medical tablet 34 :00 times Center daily before meals. furosemide 2021-02- No 40mg QD Take [address] (LASIX) 40 2-30 12-30 by mouth Luke s MG tablet 12:49: 00:00 daily. Medic al 15 :00 Center aspirin 81 2021-02- No 81mg QD Take [address] MG EC 2-30 12-23 by mouth [facility]ukes tablet 12:49: 00:00 daily. Medical 12 :00 Center omega-3 2021-02- No 2g Q.5D Take 2 g [facility] t fatty 2-30 12-23 by mouth 2 [facility]ukes acids-fish 12:49: 00:00 (two) Medic al oil 12 :00 times Center 340-1,000 daily. mg Cap per capsule magnesium 2021-02- No 400mg QD Take [address] oxide 250 2-30 12-23 mg by [facility] mg 12:49: 00:00 mouth Medical magnesium 12 :00 daily. Center Tab tablet bumetanide 2021-02 Yes 1{tbl} Take 1 [place] (BUMEX) 1 2-30 Tablet by Colle ge MG tablet 00:00: mouth two of 00 times Medicin daily. e ampicillin 2021-02 Yes 2g Inject [address] (OMNIPEN) 2 2-30 intravenou [facility] g in NS 00:00: sly every Medic al 0.9% 100 mL 00 6 (six) Cente r (V2B) IVPB hours. cefTRIAXone 2021-02 Yes 2g Inject [address] (ROCEPHIN) 2-30 intravenou Bakari es 2 g in 00:00: sly every Medica l sodium 00 12 Center chloride (twelve) 0.9 % (NS) hours. 100 mL (V2B) IVPB bumetanide 2021-02- Yes 1mg Take [address] (BUMEX) 1 2-30 12-30 tablet (1 Luke s MG tablet 00:00: 23:59 mg total) Me dical 00 :00 by mouth 2 Center (two) times daily. carvediloL 2021-02- Yes 3.125mg Q.5D Take [address] (COREG) 2-30 12-30 tablet [facility]ukes 3.125 MG 00:00: 23:59 (3.125 mg Med ical tablet 00 :00 total) by Center mouth 2 (two) times daily. magnesium 2021-02 No 375mg QD Take 1.[address] oxide 250 03-27 tablets [facility]ukes mg 00:00: 23:59 (375 mg Medical magnesium 00 :00 total) by Cente r Tab tablet mouth daily for 30 days. aspirin 81 2021-02 No 81mg QD Take [address] MG EC 03-27 tablet (81 [facility]ukes tablet 00:00: 23:59 mg total) Medic al 00 :00 by mouth Center daily for 30 days. omega-3 2021-02 No 2g Q.5D Take [address] fatty 03-27 capsules [facility]ukes acids-fish 00:00: 23:59 (2 g Medica l oil 00 :00 total) by Center 340-1,000 mouth 2 mg Cap per (two) capsule times daily for 30 days. multivit-mi 2021-02 No Take by [facility] n/FA/lycope 2- 12-23 mouth. Lukes n/lutein 16:15: 00:00 Medical (CENTRUM 35 :00 Center SILVER MEN ORAL) ferrous 2021-02 No 325mg Take [address] sulfate 325 2- 12-23 mg by [facility]ukes (65 FE) MG 16:14: 00:00 mouth 3 Med ical EC tablet 55 :00 (three) Center times daily with meals. calcium 2021-02 No 600mg Take [address] carbonate 2-23 12-23 mg by [facility] (OS-CAREY) 16:14: 00:00 mouth 2 Medic al 600 mg 46 :00 (two) Center calcium times (1,500 mg) daily with Tab breakfast and dinner. Sildenafil 2021-02 Yes 10mg Take 10 mg [facility] Citrate 20 2-20 by mouth 3 Col lege MG TABS 00:00: times of 00 daily. Medicin e glipiZIDE 2021-02 Yes 10mg Take 10 mg [facility] (GLUCOTROL) 2-12 by mouth Yessica ege 10 MG CR 16:18: daily. of tablet 26 Medicin e Apremilast 2021-02 Yes Take by [facility] (OTEZLA) 30 2-12 mouth. Colleg e MG TABS 16:18: of 26 Medicin e Apixaban 5 2021-02 Yes 5mg Take 5 mg Ba [facility] MG TABS 2-12 by mouth College 00:00: two times of 00 daily. Medicin e Amoxicillin 2021-02- No Take 4 [place] 500 MG TABS 2-05 12-12 tablets [...] 340-1,000 daily. mg Cap per capsule omega-3 0 Yes 2g Q.5D Take [address] fatty 8-30 by mouth 2 [facility]ukes acids-fish 16:10: (two) Medica l oil 01 times Center 340-1,000 daily. mg Cap per capsule omega-3 0 Yes 2g Q.5D Take [address] fatty 8-30 by mouth 2 [facility]ukes acids-fish 16:10: (two) Medica l oil 01 times Center 340-1,000 daily. mg Cap per capsule multivit-mi Yes Take by [facility] n/FA/lycope 8-30 mouth. [facility]ukes n/lutein 16:09: Medical ([facility] [address] [place] SILVER MEN ORAL) multivit-mi 0 Yes Take by [facility] n/FA/lycope 8-30 mouth. [facility]ukes n/lutein 16:09: Medical ([facility] [address] [place] SILVER MEN ORAL) multivit-mi 0 Yes Take by [facility] n/FA/lycope 8-30 mouth. [facility]ukes n/lutein 16:09: Medical ([facility] [address] [place] SILVER MEN ORAL) magnesium Yes 400mg QD Take [address] oxide 250 8-30 mg by [facility]ukes mg 16:09: mouth Medical magnesium 48 daily. Center Tab tablet magnesium Yes 400mg QD Take [address] oxide 250 8-30 mg by [facility]ukes mg 16:09: mouth Medical magnesium 48 daily. Center Tab tablet magnesium 2022-0 Yes 400mg QD Take [address] oxide 250 8-30 mg by [facility]ukes mg 16:09: mouth Medical magnesium 48 daily. Center Tab tablet glipiZIDE 2022-0 Yes 10mg Take 10 mg [...] daily with Tab breakfast and dinner. calcium 2022-0 Yes 600mg Take 600 [facility] carbonate 8-30 mg by [facility] (OS-CAREY) 16:08: mouth 2 Medica l 600 mg 58 (two) Center calcium times (1,500 mg) daily with Tab breakfast and dinner. calcium 2022-0 Yes 600mg Take 600 [facility] carbonate 8-30 mg by [facility] (OS-CAREY) 16:08: mouth 2 Medica l 600 mg 58 (two) Center calcium times (1,500 mg) daily with Tab breakfast and dinner. aspirin 81 Yes 81mg QD Take [address] MG EC 8-30 by mouth [facility] tablet 16:08: daily. [address] aspirin 81 0 Yes 81mg QD Take [address] MG EC 8-30 by mouth [facility] tablet 16:08: daily. [address] aspirin 81 0 Yes 81mg QD Take [address] MG EC 8-30 by mouth [facility] tablet 16:08: daily. [address] apremilast Yes Take by [facility] (Otezla) 30 8-30 mouth. [facility]ukes mg Tab 16:08: [address] apremilast Yes Take by [facility] (Otezla) 30 8-30 mouth. [facility]ukes mg Tab 16:08: [address] apremilast Yes Take by [facility] (Otezla) 30 8-30 mouth. [facility] mg Tab 16:08: [address] clopidogreL 2022- No 75mg QD Take [...] 00 :00 by mouth Center daily. clopidogreL 2021- No 75mg QD Take [address] (PLAVIX) 75 10-01- tablet (75 [facility]kes mg tablet 00:00: 00:00 mg total) Me dical 00 :00 by mouth Center daily. furosemide 2021-2021- No 40mg QD Take [address] (LASIX) 40 10-01 11-03 tablet (40 [facility] MG tablet 00:00: 23:59 mg total) Me dical 00 :00 by mouth Center daily for 90 days. furosemide 2021-2021- No 40mg QD Take [address] (LASIX) 40 8- 11-03 tablet (40 [facility] MG tablet 00:00: 23:59 mg total) Me dical 00 :00 by mouth Center daily for 90 days. furosemide 2021-0 2021- No 40mg QD Take [address] (LASIX) 40 8- 11-03 tablet (40 [facility]ie kes MG tablet 00:00: 23:59 mg total) Me dical 00 :00 by mouth Center daily for 90 days. furosemide 2021-2021- No 40mg QD Take [address] (LASIX) 40 8- 11-03 tablet (40 [facility]ie kes MG tablet 00:00: 23:59 mg total) Me dical 00 :00 by mouth Center daily for 90 days. furosemide 2021-0 2021- No 40mg Q.5D Take [address] (LASIX) 40 8- 08-04 by mouth 2 [facility] MG tablet 10:58: 00:00 (two) Medica l 47 :00 times Center daily. furosemide 2021-0 2021- No 40mg Q.5D Take [address] (LASIX) 40 8-04 08-04 by mouth 2 [facility] k[facility] MG tablet 10:58: 00:00 (two) Medica l 47 :00 times Center daily. furosemide 2021-0 2021- No 40mg Q.5D Take [address] (LASIX) 40 8-04 08-04 by mouth 2 [facility] k[facility] MG tablet 10:58: 00:00 (two) Medica l 47 :00 times Center daily. furosemide 2021-0 2021- No 40mg Q.5D Take [address] (LASIX) 40 8-04 08-04 by mouth 2 [facility]ie kes MG tablet 10:58: 00:00 (two) Medica l 47 :00 times Center daily. furosemide 2021-0 Yes 40mg Take 1 [facility] (LASIX) 40 8-04 Tablet by Yessica ege MG tablet 00:00: mouth of 00 daily. Medicin e lisinopril 2021-0 Yes 20mg Take 1 [facility] (PRINIVIL, [...] Cent er (two) times daily before meals. furosemide 2022-0 2023- No 40mg Take 1 [facility] (LASIX) 40 8-04 01-30 Tablet by Col lege MG tablet 00:00: 00:00 mouth of 00 :00 daily. Medicin e lisinopril 2022-0 2023- No 20mg Take 1 [facility] (PRINIVIL, 09-30 Tablet by Col lege ZESTRIL) 20 00:00: 00:00 mouth two of MG tablet 00 :00 times Medicin daily. e clopidogrel 2021- No 75mg Take 1 [place] (PLAVIX) 75 09-30 Tablet by Co llege MG Tablet 00:00: 00:00 mouth of 00 :00 daily. Medicin e minocycline 2021-2021- No 100mg Take 1 [facility] (MINOCIN) 09-30 capsule by Col lege 100 MG 00:00: 00:00 mouth two of capsule 00 :00 times Medicin daily. e apixaban 2021- No 5mg Q.5D Take 1 [facility] [...] (twelve) hours for 5 days. mINOCYCLine 2021-0 2022- No 100mg Take 1 [facility] (MINOCIN,DY 8- 08-09 capsule [facility] NACIN) 100 00:00: 23:59 (100 mg Med ical MG capsule 00 :00 total) by Cent er mouth every 12 (twelve) hours for 5 days. mINOCYCLine 2021-0 2021- No 100mg Take [address] [facility] [address] [facility] (MINOCIN,DY 8- 08- capsule [facility] NACIN) 100 00:00: 23:59 (100 mg Med ical MG capsule 00 :00 total) by Cent er mouth every 12 (twelve) hours for 5 days. mINOCYCLine 2021-0 202- No 100mg Take [address] [facility] [address] [facility] (MINOCIN,DY 8-06 04- capsule [facility] NACIN) 100 00:00: 23:59 (100 mg Med ical MG capsule 00 :00 total) by Cent er mouth every 12 (twelve) hours for 5 days. Apremilast Yes Take by [facility] (OTEZLA) 30 7- mouth. [facility] MG TABS 13:20: of 25 Medicin e furosemide Yes 40mg Take 40 mg [facility] (LASIX) 40 09-23 by mouth [facility]le [facility] MG tablet 13:20: [...] 10 MG 00:00: nightly. Medical tablet 00 [place] rosuvastati Yes TAKE 1 [facility] (CRESTOR) 7-13 TABLET BY [facility]ge 10 MG 00:00: MOUTH of tablet 00 EVERY DAY Medicin AT BEDTIME e FOR 90 DAYS rosuvastati Yes 10mg QD Take [address] [facility] (CRESTOR) 7-13 by mouth [facility] 10 MG 00:00: nightly. Medical tablet 00 [place] rosuvastati Yes 10mg QD Take [address] [facility] (CRESTOR) 7-13 by mouth [facility] 10 MG 00:00: nightly. Medical tablet 00 [place] rosuvastati Yes 10mg QD Take [address] [facility] (CRESTOR) 7-13 by mouth [facility] 10 MG 00:00: nightly. Medical tablet 00 [place] allopurinoL Yes 300mg QD Take [address] (ZYLOPRIM) 7-11 mg by [facility] 300 MG 00:00: mouth Medical tablet 00 daily. [place] allopurinol Yes TAKE 1 [facility] (ZYLOPRIM) [...] MG 00:00: mouth Medical tablet 00 daily. [place] allopurinoL Yes 300mg QD Take [address] (ZYLOPRIM) 7-11 mg by [facility] 300 MG 00:00: mouth Medical tablet 00 daily. [place] allopurinoL Yes 300mg QD Take [address] (ZYLOPRIM) 7-11 mg by [facility] 300 MG 00:00: mouth Medical tablet 00 daily. [place] omeprazole Yes 40mg QD Take [address] [facility] (PriLOSEC) 6-29 by mouth [facility] 40 MG 00:00: daily. Medical capsule 00 [place] omeprazole Yes TAKE 1 [facility] (PRILOSEC) [...] 40 MG 00:00: daily. Medical capsule 00 [place] omeprazole Yes 40mg QD Take [address] [facility] (PriLOSEC) 6-29 by mouth [facility] 40 MG 00:00: daily. Medical capsule 00 [place] omeprazole Yes 40mg QD Take [address] [facility] (PriLOSEC) 6-29 by mouth [facility] 40 MG 00:00: daily. Medical capsule 00 [place] metoprolol Yes 100mg 100 mg [facility] [...] 00 daily. Center hr tablet metoprolol 2021-0 3- No 100mg 100 mg [place] [facility] (TOPROL-XL) 08-20-30 daily. [facility] 100 MG XL 00:00: 00:00 Take 1/2 of tablet 00 :00 tablet Medicin daily e metoprolol 0 2021- No 50mg QD Take [address] [facility] succinate 08-20-30 by mouth [facility] (TOPROL-XL) 00:00: 00:00 daily . Me dical 100 MG 24 00 :00 Center hr tablet lisinopriL 2021-0 2- No 20mg QD Take [address] [facility] (PRINIVIL,Z 6-20 10-04 by mouth [facility] ESTRIL) 20 00:00: 00:00 daily. Medi carey MG tablet 00 :00 Center lisinopriL 2021-0 2022- No 20mg QD Take [address] [facility] (PRINIVIL,Z 6- 08-04 by mouth [facility] ESTRIL) 20 [...] carey MG tablet 00 :00 Center gabapentin 2021-0 Yes Q.5D Take by [facility] (NEURONTIN) 6-23 mouth 2 [facility] 300 MG 00:00: (two) Medical capsule 00 times Center daily 300mg QAM, 600mg QPM. gabapentin 2021-0 Yes TAKE 1 [facility] (NEURONTIN) 6-23 CAPSULE IN [facility] llege 300 MG 00:00: THE of capsule 00 MORNING Medicin AND 2 e CAPSULES IN THE EVENING FOR 90 DAYS gabapentin 2021-0 Yes TAKE 1 [facility] (NEURONTIN) 6-23 CAPSULE IN [facility]lege 300 MG 00:00: THE of capsule 00 MORNING Medicin AND 2 e CAPSULES IN THE EVENING FOR 90 DAYS gabapentin 2021-0 Yes TAKE 1 [facility] (NEURONTIN) 6-23 CAPSULE IN [facility]lege 300 MG 00:00: THE of capsule 00 MORNING Medicin AND 2 e CAPSULES IN THE EVENING FOR 90 DAYS gabapentin 2021-0 Yes TAKE 1 [facility] (NEURONTIN) 6-23 CAPSULE IN [facility]lege 300 MG 00:00: THE of capsule 00 MORNING Medicin AND 2 e CAPSULES IN THE EVENING FOR 90 DAYS gabapentin 2021-0 Yes Q.5D Take by [facility] (NEURONTIN) 6-23 mouth 2 [facility] 300 MG 00:00: (two) Medical capsule 00 times Center daily. gabapentin 2021-0 Yes Q.5D Take by [facility] (NEURONTIN) 6-23 mouth 2 [facility] 300 MG 00:00: (two) Medical capsule 00 times Center daily. gabapentin 2021-0 Yes Q.5D Take by [facility] (NEURONTIN) 6-23 mouth 2 [facility] 300 MG 00:00: (two) Medical capsule 00 times Center daily. VICTOZA Yes INJECT 1.8 [facility] MG/3ML SOPN 6-18 MG [facility] 00:00: SUBCUTANEO of 00 USLY EVERY Medicin DAY e VICTOZA Yes INJECT 1.8 [facility] MG/3ML SOPN 6-18 MG [facility] 00:00: SUBCUTANEO of 00 USLY EVERY Medicin DAY e VICTOZA Yes INJECT 1.8 [facility] MG/3ML SOPN 6-18 MG [facility] 00:00: SUBCUTANEO of 00 USLY EVERY Medicin DAY e VICTOZA Yes INJECT 1.8 [facility] MG/3ML SOPN [...] Center (18 mg/3 daily. mL) syringe liraglutide 2021- No 1.8mg QD Inject 1.[address] [facility] (Victoza 6-18 12-30 mg [facility] 2-Malvin) 0.6 00:00: 00:00 subcutaneo Medical mg/0.1 mL 00 :00 usly Center (18 mg/3 daily. mL) syringe Levemir Yes 130U QD Inject [address] [facility] FlexTouch 6-13 Units [facility] U-100 00:00: subcutaneo Medica l Insuln [address] unit/mL (3 . mL) InPn injection Insulin Yes INJECT 60 [facility] Detemir 6-13 UNITS [facility] (LEVEMIR 00:00: UNDER THE of FLEXTOUCH) 00 SKIN TWICE Med icin 100 UNIT/ML A DAY e SOPN Insulin Yes 130U 130 Units [facility] Detemir 6-13 two times College (LEVEMIR 00:00: daily. of FLEXTOUCH) 00 Medicin 100 UNIT/ML e SOPN Insulin Yes INJECT 60 [facility] [...] (two) mL) InPn times injection daily. ARNUITY Yes INHALE 1 [facility] ELLIPTA 100 5-23 PUFF BY Colle ge [...] EVERY DAY Medicin 90 e ARNUITY 2021-0 2023- No INHALE 1 [facility] ELLIPTA 100 5-23 01-30 PUFF BY Yessica ege MCG/ACT 00:00: 00:00 MOUTH of AEPB 00 :00 EVERY DAY Medicin 90 e hydrALAZINE Yes 100mg [id number] Take [address] [facility] (APRESOLINE 5-16 [id number] mg by David reece ) 100 MG 00:00: 3D mouth 3 Medica l tablet 00 (three) Center times daily. amlodipine 2022-0 Yes 10mg Take 10 mg [facility] (NORVASC) 5-16 by mouth Colleg e 10 MG 00:00: daily. of tablet 00 Medicin e hydrALAZINE 2021-0 Yes TAKE 1 [facility] (APRESOLINE 5-16 TABLET BY Col lege ) 100 MG 00:00: MOUTH of tablet 00 THREE Medicin TIMES A e DAY amlodipine 2021-0 Yes 10mg Take 10 mg [...] A e DAY amLODIPine 2-0 Yes 10mg [id number] Take [address] [facility] (NORVASC) 5-16 [id number] by mouth 3 [facility] 10 MG 00:00: 3D (three) Medical tablet 00 times Center daily. hydrALAZINE 2022-0 Yes 100mg Q.[id number] Take [address] [facility] (APRESOLINE 5-16 [id number] mg by David reece ) 100 MG 00:00: 3D mouth 3 Medica l tablet 00 (three) Center times daily. amLODIPine 2022-0 Yes 10mg Q.[id number] Take [address] [facility] (NORVASC) 5-16 [id number] by mouth 3 [facility] 10 MG 00:00: 3D (three) Medical tablet 00 times Center daily. hydrALAZINE 2022-0 Yes 100mg Q.[id number] Take [address] [facility] (APRESOLINE 5-16 [id number] mg by L ukes ) 100 MG 00:00: 3D mouth 3 Medica l tablet 00 (three) Center times daily. amLODIPine 2022-0 Yes 10mg Q.[id number] Take [address] [facility] (NORVASC) 5-16 [id number] by mouth 3 [facility] 10 MG 00:00: 3D (three) Medical tablet 00 times Center daily. hydrALAZINE 2022-0 Yes 100mg Q.[id number] Take [address] [facility] (APRESOLINE 5-16 [id number] mg by L ukes ) 100 MG 00:00: 3D mouth 3 Medica l tablet 00 (three) Center times daily. amLODIPine 2-0 2022- No 10mg QD Take [address] [facility] (NORVASC) 5-16 12-30 by mouth [facility] 10 MG 00:00: 00:00 daily . Medical tablet 00 :00 [place] baclofen 2021-0 Yes 10mg QD [address] [facility] (LIORESAL) 5-03 daily . [facility] 10 MG 00:00: Medical tablet 00 [place] baclofen 2021-0 Yes TAKE 1 [facility] (LIORESAL) 5-03 TABLET BY Yessica ege 10 MG 00:00: MOUTH of tablet 00 EVERY Medicin EVENING e NEEDED FOR SPASMS baclofen 2021-0 Yes TAKE 1 [facility] (LIORESAL) 5-03 TABLET BY Yessica ege 10 MG 00:00: MOUTH of tablet 00 EVERY Medicin EVENING e NEEDED FOR SPASMS baclofen 2021-0 Yes TAKE 1 [facility] (LIORESAL) 5-03 TABLET BY Yessica ege 10 MG 00:00: MOUTH of tablet 00 EVERY Medicin EVENING e NEEDED FOR SPASMS baclofen 2021-0 Yes TAKE 1 [facility] (LIORESAL) 5-03 TABLET BY Yessica ege 10 MG 00:00: MOUTH of tablet 00 EVERY Medicin EVENING e NEEDED FOR SPASMS baclofen 2021-0 Yes 10mg QD [address] [facility] (LIORESAL) 5-03 nightly. [facility] 10 MG 00:00: Medical tablet 00 [place] baclofen 2021-0 Yes 10mg QD [address] [facility] (LIORESAL) 5-03 nightly. [facility] 10 MG 00:00: Medical tablet 00 [place] baclofen 2021-0 Yes 10mg QD [address] [facility] (LIORESAL) 5-03 nightly. [facility] 10 MG 00:00: Medical tablet 00 Center calcium-vit 2021-0 Yes 1 tab, PO, [facility] [...] Refill(s) n units oral 00 tablet iron 2021-0 Yes 325 mg = 1 [facility] sulfate 4-19 tab, PO, l (ferrous 15:16: TID, 0 [place] sulfate) 00 Refill(s) 325 mg oral tablet magnesium 2021-0 Yes 250 mg = 1 [facility] gluconate 4-19 tab, PO, l 250 mg oral 15:16: BID, # 60 [facility] tablet 00 tab, 0 Refill(s) iron 2021-0 Yes 325 mg = 1 [facility] sulfate 4-19 tab, PO, l (ferrous 15:16: TID, 0 [place] sulfate) 00 Refill(s) 325 mg oral tablet magnesium 2021-0 Yes 250 mg = 1 [facility] gluconate 4-19 tab, PO, l 250 mg oral 15:16: BID, # 60 [facility] tablet 00 tab, 0 Refill(s) iron 2021-0 Yes 325 mg = 1 [facility] sulfate 4-19 tab, PO, l (ferrous 15:16: TID, 0 [place] sulfate) 00 Refill(s) 325 mg oral tablet magnesium 2-0 Yes 250 mg = 1 [facility] gluconate 4-19 tab, PO, l 250 mg oral 15:16: BID, # 60 [facility] tablet 00 tab, 0 Refill(s) iron 0 Yes 325 mg = 1 [facility] sulfate 4-19 tab, PO, l (ferrous 15:16: TID, 0 [place] sulfate) 00 Refill(s) 325 mg oral tablet magnesium Yes 250 mg = 1 [facility] gluconate 4-19 tab, PO, l 250 mg oral 15:16: BID, # 60 [facility] tablet 00 tab, 0 Refill(s) Centrum 0 Yes 1 tab, PO, [place] Silver oral 4-19 Daily, # l tablet 15:15: 90 tab, 0 n 00 Refill(s) Alexa Low Yes 81 mg = 1 [facility] Dose 81 mg 4-19 tab, PO, l oral 15:15: Daily, 0 [place] delayed 00 Refill(s) release tablet Fish Oil Yes 1,000 mg = [facility] 1000 mg 4-19 1 cap, PO, l oral 15:15: Daily, 0 [place] capsule 00 Refill(s) Centrum 0 Yes 1 tab, PO, [place] Silver oral 4-19 Daily, # l tablet 15:15: 90 tab, 0 n 00 Refill(s) Alexa Low Yes 81 mg = 1 [facility] Dose 81 mg 4-19 tab, PO, l oral 15:15: Daily, 0 [place] delayed 00 Refill(s) release tablet Fish Oil Yes 1,000 mg = [facility] 1000 mg 4-19 1 cap, PO, l oral 15:15: Daily, 0 [place] capsule 00 Refill(s) Centrum 0 Yes 1 tab, PO, [place] Silver oral 4-19 Daily, # l tablet 15:15: 90 tab, 0 n 00 Refill(s) Alexa Low Yes 81 mg = 1 [facility] Dose 81 mg 4-19 tab, PO, l oral 15:15: Daily, 0 [place] delayed 00 Refill(s) release tablet Fish Oil Yes 1,000 mg = [facility] 1000 mg 4-19 1 cap, PO, l oral 15:15: Daily, 0 [place] capsule 00 Refill(s) Centrum 2022-0 Yes 1 tab, PO, [place] Silver oral 4-19 Daily, # l tablet 15:15: 90 tab, 0 n 00 Refill(s) Alexa Low 2021-0 Yes 81 mg = 1 [facility] Dose 81 mg 4-19 tab, PO, l oral 15:15: Daily, 0 [place] delayed 00 Refill(s) release tablet Fish Oil 2021-0 Yes 1,000 mg = [facility] 1000 mg 4-19 1 cap, PO, l oral 15:15: Daily, 0 [place] capsule 00 Refill(s) amLODIPine 2021-0 Yes 10 mg = 1 [facility] 10 mg oral 4-19 tab, PO, l tablet 15:14: Daily, # [place] 00 90 tab, 1 Refill(s) hydrALAZINE 2021-0 Yes 100 mg = 1 [facility] 100 mg oral 4-19 tab, PO, l tablet 15:14: TID, # 90 n 00 tab, 3 Refill(s) furosemide 2021-0 Yes 40 mg = 1 [facility] 40 mg oral 4-19 tab, PO, l tablet 15:14: Daily, # [place] 00 90 tab, 1 Refill(s) amLODIPine 2021-0 Yes 10 mg = 1 [facility] 10 mg oral 4-19 tab, PO, l tablet 15:14: Daily, # [place] 00 90 tab, 1 Refill(s) hydrALAZINE 2021-0 Yes 100 mg = 1 [facility] 100 mg oral 4-19 tab, PO, l tablet 15:14: TID, # 90 n 00 tab, 3 Refill(s) furosemide 2-0 Yes 40 mg = 1 [facility] 40 mg oral 4-19 tab, PO, l tablet 15:14: Daily, # [place] 00 90 tab, 1 Refill(s) amLODIPine 2-0 Yes 10 mg = 1 [facility] 10 mg oral 4-19 tab, PO, l tablet 15:14: Daily, # [place] 00 90 tab, 1 Refill(s) hydrALAZINE 2021-0 Yes 100 mg = 1 [facility] 100 mg oral 4-19 tab, PO, l tablet 15:14: TID, # 90 n 00 tab, 3 Refill(s) furosemide 2-0 Yes 40 mg = 1 [facility] 40 mg oral 4-19 tab, PO, l tablet 15:14: Daily, # [place] 00 90 tab, 1 Refill(s) amLODIPine Yes 10 mg = 1 [...] tab, PO, l tablet 15:14: Daily, # [place] 00 90 tab, 1 Refill(s) Otezla 30 Yes 30 mg = 1 [facility] mg oral 4-19 tab, PO, l tablet 15:13: BID, 0 [place] 00 Refill(s) Otezla 30 Yes 30 mg = 1 [facility] mg oral 4-19 tab, PO, l tablet 15:13: BID, 0 [place] 00 Refill(s) Otezla 30 Yes 30 mg = 1 [facility] mg oral 4-19 tab, PO, l tablet 15:13: BID, 0 [place] 00 Refill(s) Otezla 30 Yes 30 mg = 1 [facility] mg oral 4-19 tab, PO, l tablet 15:13: BID, 0 [place] 00 Refill(s) baclofen Yes = 1 tab, [facility] mg oral 3-16 PO, QPM, l tablet 14:40: PRN [place] 00 NEEDED FOR SPASMS, # 90 tab, 2 Refill(s), Pharmacy: [id number] baclofen Yes = 1 tab, Me mor[facility] mg oral 3-16 PO, QPM, l tablet 14:40: PRN [place] 00 NEEDED FOR SPASMS, # 90 tab, 2 Refill(s), Pharmacy: [facility] [id number] baclofen Yes = 1 tab, [facility] mg oral 3-16 PO, QPM, l tablet 14:40: PRN [place] 00 NEEDED FOR SPASMS, # 90 tab, 2 Refill(s), Pharmacy: [facility] [id number] baclofen Yes = 1 tab, Me mor[facility] mg oral 3-16 PO, QPM, l tablet 14:40: PRN [place] 00 NEEDED FOR SPASMS, # 90 tab, 2 Refill(s), Pharmacy: [facility] STORE [id number] baclofen No = 1 tab, [facility] mg oral 9-01 PO, QPM, l tablet 14:41: PRN [place] 00 NEEDED FOR SPASMS, # 90 tab, 2 Refill(s), Pharmacy: [facility]ORE [id number] baclofen No = 1 tab, [facility] mg oral 9-01 PO, QPM, l tablet 14:41: PRN [place] 00 NEEDED FOR SPASMS, # 90 tab, 2 Refill(s), Pharmacy: [facility] STORE [id number] baclofen No = 1 tab, [facility] mg oral 9-01 PO, QPM, l tablet 14:41: PRN [place] 00 NEEDED FOR SPASMS, # 90 tab, 2 Refill(s), Pharmacy: [facility]ORE [id number] baclofen No = 1 tab, [facility] mg oral 9-01 PO, QPM, l tablet 14:41: PRN [place] 00 NEEDED FOR SPASMS, # 90 tab, 2 Refill(s), Pharmacy: [facility] STORE [id number] baclofen No 10 mg = 1 M emoria mg oral 6-10 tab, PO, l tablet 16:32: QPM, PRN [place] 00 Spasms, # 30 tab, 2 Refill(s), [id number] baclofen No 10 mg = 1 M emoria mg oral 6-10 tab, PO, l tablet 16:32: QPM, PRN [place] 00 Spasms, # 30 tab, 2 Refill(s), Pharmacy: [facility] #[id number] baclofen No 10 mg = 1 M emoria mg oral 6-10 tab, PO, l tablet 16:32: QPM, PRN [place] 00 Spasms, # 30 tab, 2 Refill(s), Pharmacy: [facility] #[id number] baclofen 10 No 10 mg = 1 M emoria mg oral 6-10 tab, PO, l tablet 16:32: QPM, PRN [place] Spasms, # 30 tab, 2 Refill(s), Pharmacy: [facility] #[id number] Levemir Yes 130, [facility] FlexPen 4-16 SUB-Q, 0 l 15:32: Refill(s) Levemir Yes 130, [facility] FlexPen 4-16 SUB-Q, 0 l 15:32: Refill(s) Levemir Yes 130, [facility] FlexPen 4-16 SUB-Q, 0 l 15:32: Refill(s) Levemir Yes 130, [facility] FlexPen 4-16 SUB-Q, 0 l 15:32: Refill(s) lisinopril 2020-0 Yes 20 mg = 1 [facility] 20 mg oral 4-17 tab, PO, l tablet 15:50: Daily, # [place] 00 30 tab, 0 Refill(s) lisinopril 2020-0 Yes 20 mg = 1 [facility] 20 mg oral 4-17 tab, PO, l tablet 15:50: Daily, # [place] 00 30 tab, 0 Refill(s) lisinopril 2020-0 Yes 20 mg = 1 [facility] 20 mg oral 4-17 tab, PO, l tablet 15:50: Daily, # [place] 00 30 tab, 0 Refill(s) lisinopril 2020-0 Yes 20 mg = 1 [facility] 20 mg oral 4-17 tab, PO, l tablet 15:50: Daily, # [place] 00 30 tab, 0 Refill(s) Levemir Levemir Yes Yann 60 units Com mon FlexTouch FlexTouch [facility] BD Pen BD Pen No BD [...] Ultra Blue Ultra Blue - - - Alexa Alexa No 1{table QD Alexa Aspirin EC Aspirin EC t} Aspirin EC Low Dose 81 Low Dose 81 Low Dose MG MG 81 MG Arnuity Arnuity No 1{puff} QD Arnuity Ellipta 100 Ellipta 100 Ellipta MCG/ACT MCG/ACT 100 MCG/ACT amLODIPine amLODIPine No QD amLODIPine Besylate 5 Besylate 5 Besylate 5 MG MG MG hydrALAZINE hydrALAZINE No 1{table TID hydrALAZIN HCl 100 MG HCl 100 MG t_with_ E HCl 100 food} MG OneTouch OneTouch No BID OneTouch Ultra Blue Ultra Blue Ultra Blue - - - amLODIPine amLODIPine No QD amLODIPine Besylate 10 Besylate 10 Besylate MG MG 10 MG glipiZIDE glipiZIDE No glipiZIDE 10 MG 10 MG 10 MG Clopidogrel Clopidogrel No 1{table QD Clopidogre Bisulfate Bisulfate t} l 75 MG 75 MG Bisulfate 75 MG Levemir Levemir No [facility] FlexTouch FlexTouch FlexTouch 100 UNIT/ML 100 UNIT/ML 100 UNIT/ML Furosemide Furosemide No 1{table QD Furosemide 20 MG 20 MG t} 20 MG Arnuity Arnuity No 1{puff} QD Arnuity Ellipta 100 Ellipta 100 Ellipta MCG/ACT MCG/ACT 100 MCG/ACT Gabapentin Gabapentin No 1{capsu Gabapentin 300 MG 300 MG le} 300 MG Victoza 18 Victoza 18 No QD Victoza 18 MG/3ML MG/3ML MG/3ML Lisinopril Lisinopril No 1{table QD Lisinopril 20 MG 20 MG t} 20 MG Calcium 600 Calcium 600 No 1{table BID Calcium MG MG t_with_ 600 MG meals} Arnuity Arnuity No 1{puff} QD Arnuity Ellipta 100 Ellipta 100 Ellipta MCG/ACT MCG/ACT 100 MCG/ACT Fish Oil Fish Oil No 1{capsu QD Fish Oil 1000 MG 1000 MG le} 1000 MG Allopurinol Allopurinol No QD Allopurino 300 MG 300 MG l 300 MG BD Pen BD Pen No BD Pen Needle Mini Needle Mini Needle U/F 31G X 5 U/F 31G X 5 Mini U/F MM MM 31G X 5 MM Metoprolol Metoprolol No QD Metoprolol Succinate Succinate Succinate ER 100 MG ER 100 MG ER 100 MG BD Pen BD Pen No TID BD Pen Needle Mini Needle Mini Needle U/F 31G X 5 U/F 31G X 5 Mini U/F MM MM 31G X 5 MM Metoprolol Metoprolol No 1{table QD Metoprolol Succinate Succinate t} Succinate ER 100 MG ER 100 MG ER 100 MG Omeprazole Omeprazole No QD Omeprazole 40 MG 40 MG 40 MG Vitamin D Vitamin D No 1{table QD Vitamin D 50 MCG 50 MCG t} 50 MCG (1999) (1999 UT) (1999) Iron 325 Iron 325 No 1{table QD Iron 325 (65 Fe) MG (65 Fe) MG t} (65 Fe) MG Magnesium Magnesium No 1{table QD Magnesium 250 MG 250 MG t_with_ 250 MG a_meal} Rosuvastati Rosuvastati No Rosuvastat n Calcium n Calcium in Calcium 10 MG 10 MG 10 MG Alexa Alexa No 1{table QD Alexa Aspirin EC Aspirin EC t} Aspirin EC Low Dose 81 Low Dose 81 Low Dose MG MG 81 MG Ote[place]la 30 Otezla 30 No 1{table BID [place] 30 MG MG t} MG Rosuvastati Rosuvastati No 1{table Rosuvastat n Calcium n Calcium t} in Calcium 10 MG 10 MG 10 MG Centrum Centrum No Centrum Silver - Silver - Silver - Victoza 18 Victoza 18 No QD Victoza 18 MG/3ML MG/3ML MG/3ML Gabapentin Gabapentin No 1{capsu Gabapentin 300 MG 300 MG le} 300 MG hydrALAZINE hydrALAZINE No 1{table TID hydrALAZIN HCl 100 MG HCl 100 MG t_with_ E HCl 100 food} MG OneTouch OneTouch No BID OneTouch Ultra Blue Ultra Blue Ultra Blue - - - amLODIPine amLODIPine No QD amLODIPine Besylate 10 Besylate 10 Besylate MG MG 10 MG glipiZIDE glipiZIDE No glipiZIDE 10 MG 10 MG 10 MG Clopidogrel Clopidogrel No 1{table QD Clopidogre Bisulfate Bisulfate t} l 75 MG 75 MG Bisulfate 75 MG Levemir Levemir No [facility] FlexTouch FlexTouch FlexTouch 100 UNIT/ML 100 UNIT/ML 100 UNIT/ML Furosemide Furosemide No 1{table QD Furosemide 20 MG 20 MG t} 20 MG Gabapentin Gabapentin No 1{capsu Gabapentin 300 MG 300 MG le} 300 MG Victoza 18 Victoza 18 No QD Victoza 18 MG/3ML MG/3ML MG/3ML Ote[place]la 30 Otezla 30 No 1{table BID [place] 30 MG MG t} MG Lisinopril Lisinopril No 1{table QD Lisinopril 20 MG 20 MG t} 20 MG Calcium 600 Calcium 600 No 1{table BID Calcium MG MG t_with_ 600 MG meals} Arnuity Arnuity No 1{puff} QD Arnuity Ellipta 100 Ellipta 100 Ellipta MCG/ACT MCG/ACT 100 MCG/ACT Fish Oil Fish Oil No 1{capsu QD Fish Oil 1000 MG 1000 MG le} 1000 MG Allopurinol Allopurinol No QD Allopurino 300 MG 300 MG l 300 MG BD Pen BD Pen No BD Pen Needle Mini Needle Mini Needle U/F 31G X 5 U/F 31G X 5 Mini U/F MM MM 31G X 5 MM Metoprolol Metoprolol No QD Metoprolol Succinate Succinate Succinate ER 100 MG ER 100 MG ER 100 MG BD Pen BD Pen No TID BD Pen Needle Mini Needle Mini Needle U/F 31G X 5 U/F 31G X 5 Mini U/F MM MM 31G X 5 MM Omeprazole Omeprazole No QD Omeprazole 40 MG 40 MG 40 MG Vitamin D Vitamin D No 1{table QD Vitamin D 50 MCG 50 MCG t} 50 MCG (1999) (1999 UT) (1999) hydrALAZINE hydrALAZINE No TID hydrALAZIN HCl 100 MG HCl 100 MG E HCl 100 MG Iron 325 Iron 325 No 1{table QD Iron 325 (65 Fe) MG (65 Fe) MG t} (65 Fe) MG Magnesium Magnesium No 1{table QD Magnesium 250 MG 250 MG t_with_ 250 MG a_meal} Rosuvastati Rosuvastati No Rosuvastat n Calcium n Calcium in Calcium 10 MG 10 MG 10 MG [place] [employer] No 1{table QD Alexa Aspirin EC Aspirin EC t} Aspirin EC Low Dose 81 Low Dose 81 Low Dose MG MG 81 MG Otezla 30 Otezla 30 No 1{table BID Ote[place]la 30 MG MG t} MG Rosuvastati Rosuvastati No 1{table Rosuvastat n Calcium n Calcium t} in Calcium 10 MG 10 MG 10 MG Centrum Centrum No Centrum Silver - Silver - Silver - Omeprazole Omeprazole No QD Omeprazole 40 MG 40 MG 40 MG hydrALAZINE hydrALAZINE No 1{table TID hydrALAZIN HCl 100 MG HCl 100 MG t_with_ E HCl 100 food} MG OneTouch OneTouch No BID OneTouch Ultra Blue Ultra Blue Ultra Blue - - - amLODIPine amLODIPine No QD amLODIPine Besylate 10 Besylate 10 Besylate MG MG 10 MG glipiZIDE glipiZIDE No glipiZIDE 10 MG 10 MG 10 MG BD Pen BD Pen No TID BD Pen Needle Mini Needle Mini Needle U/F 31G X 5 U/F 31G X 5 Mini U/F MM MM 31G X 5 MM Clopidogrel Clopidogrel No 1{table QD Clopidogre Bisulfate Bisulfate t} l 75 MG 75 MG Bisulfate 75 MG Levemir Levemir No [facility] FlexTouch FlexTouch FlexTouch 100 UNIT/ML 100 UNIT/ML 100 UNIT/ML Furosemide Furosemide No 1{table QD Furosemide 20 MG 20 MG t} 20 MG Gabapentin Gabapentin No 1{capsu Gabapentin 300 MG 300 MG le} 300 MG Victoza 18 Victoza 18 No QD Victoza 18 MG/3ML MG/3ML MG/3ML Lisinopril Lisinopril No 1{table QD Lisinopril 20 MG 20 MG t} 20 MG Calcium 600 Calcium 600 No 1{table BID Calcium MG MG t_with_ 600 MG meals} Arnuity Arnuity No 1{puff} QD Arnuity Ellipta 100 Ellipta 100 Ellipta MCG/ACT MCG/ACT 100 MCG/ACT Fish Oil Fish Oil No 1{capsu QD Fish Oil 1000 MG 1000 MG le} 1000 MG Allopurinol Allopurinol No QD Allopurino 300 MG 300 MG l 300 MG Furosemide Furosemide No 1{table QD Furosemide 40 MG 40 MG t} 40 MG BD Pen BD Pen No BD Pen Needle Mini Needle Mini Needle U/F 31G X 5 U/F 31G X 5 Mini U/F MM MM 31G X 5 MM Metoprolol Metoprolol No QD Metoprolol Succinate Succinate Succinate ER 100 MG ER 100 MG ER 100 MG BD Pen BD Pen No TID BD Pen Needle Mini Needle Mini Needle U/F 31G X 5 U/F 31G X 5 Mini U/F MM MM 31G X 5 MM Omeprazole Omeprazole No QD Omeprazole 40 MG 40 MG 40 MG Vitamin D Vitamin D No 1{table QD Vitamin D 50 MCG 50 MCG t} 50 MCG (1999 UT) (1999 UT) (1999 UT) Iron 325 Iron 325 No 1{table QD Iron 325 (65 Fe) MG (65 Fe) MG t} (65 Fe) MG Magnesium Magnesium No 1{table QD Magnesium 250 MG 250 MG t_with_ 250 MG a_meal} Rosuvastati Rosuvastati No Rosuvastat n Calcium n Calcium in Calcium 10 MG 10 MG 10 MG Alexa Alexa No 1{table QD Alexa Aspirin EC Aspirin EC t} Aspirin EC Low Dose 81 Low Dose 81 Low Dose MG MG 81 MG Otezla 30 Otezla 30 No 1{table BID Otezla 30 MG MG t} MG Lisinopril Lisinopril No 1{table QD Lisinopril 20 MG 20 MG t} 20 MG Rosuvastati Rosuvastati No 1{table Rosuvastat n Calcium n Calcium t} in Calcium 10 MG 10 MG 10 MG Centrum Centrum No Centrum Silver - Silver - Silver - glipiZIDE glipiZIDE No BID glipiZIDE 10 MG 10 MG 10 MG amLODIPine amLODIPine No QD amLODIPine Besylate 10 Besylate 10 Besylate MG MG 10 MG Victoza 18 Victoza 18 No QD Victoza 18 MG/3ML MG/3ML MG/3ML Calcium 600 Calcium 600 No 1{table BID Calcium MG MG t_with_ 600 MG meals} OneTouch OneTouch No BID OneTouch Ultra Blue Ultra Blue Ultra Blue - - - [employer] No 1{table QD Alexa Aspirin EC Aspirin EC t} Aspirin EC Low Dose 81 Low Dose 81 Low Dose MG MG 81 MG Vitamin D Vitamin D No 1{table QD Vitamin D 50 MCG 50 MCG t} 50 MCG (1999) (1999) (1999) Levemir Levemir No Levemir FlexTouch FlexTouch FlexTouch 100 UNIT/ML 100 UNIT/ML 100 UNIT/ML Metoprolol Metoprolol No QD Metoprolol Succinate Succinate Succinate ER 100 MG ER 100 MG ER 100 MG Allopurinol Allopurinol No QD Allopurino 300 MG 300 MG l 300 MG BD Pen BD Pen No TID BD Pen Needle Mini Needle Mini Needle U/F 31G X 5 U/F 31G X 5 Mini U/F MM MM 31G X 5 MM hydrALAZINE hydrALAZINE No 1{table TID hydrALAZIN HCl 100 MG HCl 100 MG t_with_ E HCl 100 food} MG Allopurinol Allopurinol No QD Allopurino 300 MG 300 MG l 300 MG Rosuvastati Rosuvastati No Rosuvastat n Calcium n Calcium in Calcium 10 MG 10 MG 10 MG Magnesium Magnesium No 1{table QD Magnesium 250 MG 250 MG t_with_ 250 MG a_meal} Centrum Centrum No Centrum Silver - Silver - Silver - BD Pen BD Pen No BD Pen Needle Mini Needle Mini Needle U/F 31G X 5 U/F 31G X 5 Mini U/F MM MM 31G X 5 MM Iron 325 Iron 325 No 1{table QD Iron 325 (65 Fe) MG (65 Fe) MG t} (65 Fe) MG Furosemide Furosemide No 1{table QD Furosemide 20 MG 20 MG t} 20 MG Levemir Levemir No Levemir FlexTouch FlexTouch FlexTouch 100 UNIT/ML 100 UNIT/ML 100 UNIT/ML Fish Oil Fish Oil No 1{capsu QD Fish Oil 1000 MG 1000 MG le} 1000 MG Baclofen 10 Baclofen 10 No 1{table QD Baclofen MG MG t_as_ne 10 MG eded} Clopidogrel Clopidogrel No 1{table QD Clopidogre Bisulfate Bisulfate t} l 75 MG 75 MG Bisulfate 75 MG Gabapentin Gabapentin No 1{capsu Gabapentin 300 MG 300 MG le} 300 MG Omeprazole Omeprazole No QD Omeprazole 40 MG 40 MG 40 MG Carvedilol Carvedilol No 1{table BID Carvedilol 3.125 MG 3.125 MG t_with_ 3.125 MG food} Lisinopril Lisinopril No 1{table QD Lisinopril 20 MG 20 MG t} 20 MG Bumetanide Bumetanide No 1{table QD Bumetanide 1 MG 1 MG t} 1 MG Arnuity Arnuity No 1{puff} QD Arnuity Ellipta 100 Ellipta 100 Ellipta MCG/ACT MCG/ACT 100 MCG/ACT Eliquis 5 Eliquis 5 No 1{table BID Eliquis 5 MG MG t} MG Vitamin D Vitamin D No 1{table QD Vitamin D 50 MCG 50 MCG t} 50 MCG (1999 UT) (1999 UT) (1999) glipiZIDE glipiZIDE No glipiZIDE 10 MG 10 MG 10 MG Rosuvastati Rosuvastati No 1{table Rosuvastat n Calcium n Calcium t} in Calcium 10 MG 10 MG 10 MG Otezla 30 Otezla 30 No 1{table BID Otezla 30 MG MG t} MG Rosuvastati Rosuvastati No 1{table Rosuvastat n Calcium n Calcium t} in Calcium 10 MG 10 MG 10 MG Alexa Alexa No 1{table QD Alexa Aspirin EC Aspirin EC t} Aspirin EC Low Dose 81 Low Dose 81 Low Dose MG MG 81 MG Otezla 30 Otezla 30 No 1{table BID Otezla 30 MG MG t} MG Omeprazole Omeprazole No QD Omeprazole 40 MG 40 MG 40 MG Magnesium Magnesium No 1{table QD Magnesium 250 MG 250 MG t_with_ 250 MG a_meal} Centrum Centrum No Centrum Silver - Silver - Silver - Rosuvastati Rosuvastati No Rosuvastat n Calcium n Calcium in Calcium 10 MG 10 MG 10 MG Arnuity Arnuity No 1{puff} QD Arnuity Ellipta 100 Ellipta 100 Ellipta MCG/ACT MCG/ACT 100 MCG/ACT Rosuvastati Rosuvastati No 1{table Rosuvastat n Calcium n Calcium t} in Calcium 10 MG 10 MG 10 MG Vitamin D Vitamin D No 1{table QD Vitamin D 50 MCG 50 MCG t} 50 MCG (1999) (1999) (1999) Eliquis 5 Eliquis 5 No 1{table BID Eliquis 5 MG MG t} MG Victoza 18 Victoza 18 No QD Victoza 18 MG/3ML MG/3ML MG/3ML BD Pen BD Pen No BD Pen Needle Mini Needle Mini Needle U/F 31G X 5 U/F 31G X 5 Mini U/F MM MM 31G X 5 MM glipiZIDE glipiZIDE No glipiZIDE 10 MG 10 MG 10 MG Clopidogrel Clopidogrel No 1{table QD Clopidogre Bisulfate Bisulfate t} l 75 MG 75 MG Bisulfate 75 MG Furosemide Furosemide No 1{table QD Furosemide 20 MG 20 MG t} 20 MG Gabapentin Gabapentin No 1{capsu Gabapentin 300 MG 300 MG le} 300 MG BD Pen BD Pen No TID BD Pen Needle Mini Needle Mini Needle U/F 31G X 5 U/F 31G X 5 Mini U/F MM MM 31G X 5 MM Fish Oil Fish Oil No 1{capsu QD Fish Oil 1000 MG 1000 MG le} 1000 MG OneTouch OneTouch No BID OneTouch Ultra Blue Ultra Blue Ultra Blue - - - Carvedilol Carvedilol No 1{table BID Carvedilol 3.125 MG 3.125 MG t_with_ 3.125 MG food} Iron 325 Iron 325 No 1{table QD Iron 325 (65 Fe) MG (65 Fe) MG t} (65 Fe) MG Bumetanide Bumetanide No 1{table QD Bumetanide 1 MG 1 MG t} 1 MG Levemir Levemir No Levemir FlexTouch FlexTouch FlexTouch 100 UNIT/ML 100 UNIT/ML 100 UNIT/ML Allopurinol Allopurinol No QD Allopurino 300 MG 300 MG l 300 MG hydrALAZINE hydrALAZINE No 1{table TID hydrALAZIN HCl 100 MG HCl 100 MG t_with_ E HCl 100 food} MG Baclofen 10 Baclofen 10 No 1{table QD Baclofen MG MG t_as_ne 10 MG eded} Metoprolol Metoprolol No QD Metoprolol Succinate Succinate Succinate ER 100 MG ER 100 MG ER 100 MG amLODIPine amLODIPine No QD amLODIPine Besylate 10 Besylate 10 Besylate MG MG 10 MG Lisinopril Lisinopril No 1{table QD Lisinopril 20 MG 20 MG t} 20 MG Calcium 600 Calcium 600 No 1{table BID Calcium MG MG t_with_ 600 MG meals} BD Pen BD Pen No TID BD Pen Needle Mini Needle Mini Needle U/F 31G X 5 U/F 31G X 5 Mini U/F MM MM 31G X 5 MM Allopurinol Allopurinol No QD Allopurino 300 MG 300 MG l 300 MG Omeprazole Omeprazole No QD Omeprazole 40 MG 40 MG 40 MG Trelegy Trelegy No 1{puff} QD Trelegy Ellipta Ellipta Ellipta 200-62.5-25 200-62.5-25 200-62.5-2 MCG/ACT MCG/ACT 5 MCG/ACT Otezla 30 Otezla 30 No 1{table BID Otezla 30 MG MG t} MG OneTouch OneTouch No BID OneTouch Ultra Blue Ultra Blue Ultra Blue - - - amLODIPine amLODIPine No QD amLODIPine Besylate 10 Besylate 10 Besylate MG MG 10 MG Levemir Levemir No Levemir FlexTouch FlexTouch FlexTouch 100 UNIT/ML 100 UNIT/ML 100 UNIT/ML Victoza 18 Victoza 18 No QD Victoza 18 MG/3ML MG/3ML MG/3ML Rosuvastati Rosuvastati No Rosuvastat n Calcium n Calcium in Calcium 10 MG 10 MG 10 MG Centrum Centrum No Centrum Silver - Silver - Silver - Bumetanide Bumetanide No 1{table QD Bumetanide 1 MG 1 MG t} 1 MG glipiZIDE glipiZIDE No glipiZIDE 10 MG 10 MG 10 MG hydrALAZINE hydrALAZINE No 1{table TID hydrALAZIN HCl 100 MG HCl 100 MG t_with_ E HCl 100 food} MG Carvedilol Carvedilol No 1{table BID Carvedilol 6.25 MG 6.25 MG t_with_ 6.25 MG food} Baclofen 10 Baclofen 10 No 1{table QD Baclofen MG MG t_as_ne 10 MG eded} Rosuvastati Rosuvastati No 1{table Rosuvastat n Calcium n Calcium t} in Calcium 10 MG 10 MG 10 MG Eliquis 5 Eliquis 5 No 1{table BID Eliquis 5 MG MG t} MG Gabapentin Gabapentin No 1{capsu Gabapentin 300 MG 300 MG le} 300 MG glipiZIDE glipiZIDE No BID glipiZIDE 10 MG 10 MG 10 MG OneTouch [...] No 1{capsu 300 MG 300 MG le} Alexa Alexa No 1{table QD Aspirin EC Aspirin EC [...] Centrum Silver - Silver - Silver - Alexa Alexa No 1{table QD Alexa Aspirin EC Aspirin EC t} Aspirin EC [...] MG ER 100 MG ER 100 MG Alexa Alexa No 1{table QD Alexa Aspirin EC Aspirin EC t} Aspirin EC [...] MCG t} 50 MCG (1999) (1999) (1999) Fish Oil Fish Oil No [...] 50 MCG t} 50 MCG (1999) (1999) (2000 UT) amLODIPine amLODIPine No amLODIPine Besylate 5 Besylate [...] Calcium 10 MG 10 MG 10 MG Alexa Alexa No 1{table QD Alexa Aspirin EC Aspirin EC t} Aspirin EC [...] glipiZIDE 10 MG 10 MG 10 MG Alexa Alexa No 1{table QD Alexa Aspirin EC Aspirin EC t} Aspirin EC [...] FlexTouch 100 UNIT/ML 100 UNIT/ML 100 UNIT/ML Alexa Alexa No 1{table QD Alexa Aspirin EC Aspirin EC t} Aspirin EC [...] mg mg 5 mg mg 5 mg Alexa Alexa No 1{table QD Alexa Aspirin EC Aspirin EC t} Aspirin EC [...] mg mg 5 mg mg 5 mg Alxea Alexa No 1{table QD Alexa Aspirin EC Aspirin EC t} Aspirin EC [...] MCG (1999 UT) (1999 UT) (1999 UT) Levemir Levemir No Levemir FlexTouch FlexTouch FlexTouch [...] Ellipta 100 Ellipta MCG/ACT MCG/ACT 100 MCG/ACT Alexa Alexa No 1{table QD Alexa Aspirin EC Aspirin EC t} Aspirin EC [...] MCG (1999 UT) (1999 UT) (1999 UT) Levemir Levemir No Levemir FlexTouch FlexTouch FlexTouch [...] Ellipta 100 Ellipta MCG/ACT MCG/ACT 100 MCG/ACT Alexa Alexa No 1{table QD Alexa Aspirin EC Aspirin EC t} Aspirin EC [...] Ellipta 100 Ellipta MCG/ACT MCG/ACT 100 MCG/ACT Alexa Alexa No 1{table QD Alexa Aspirin EC Aspirin EC t} Aspirin EC [...] MCG t} 50 MCG (1999) (1999) (1999) BD Pen BD Pen No TID [...] 20 MG 20 MG t} 20 MG Alexa Alexa No 1{table QD Alexa Aspirin EC Aspirin EC t} Aspirin EC [...] 20 MG 20 MG t} 20 MG Alexa Alexa No 1{table QD Alexa Aspirin EC Aspirin EC t} Aspirin EC [...] 20 MG 20 MG t} 20 MG Alexa Alexa No 1{table QD Alexa Aspirin EC Aspirin EC t} Aspirin EC [...] BID Otezla 30 MG MG t} MG Eliquis 5 Eliquis 5 2021- No Eliquis 5 mg 5 mg mg 5 mg 11-05 mg 5 mg 00:00 :00 Immunizations Ordered Immunization Filled Immunization Date Status Commen ts Source Name Name FLUZONE HIGH DOSE FLUZONE HIGH DOSE 2022-01-04 Completed [facility] OVER 65 OVER 65 10:21:00 - [facility] FLUZONE HIGH DOSE FLUZONE HIGH DOSE 2022-01-04 Completed [facility] OVER 65 OVER 65 10:21:00 - [facility] FLUZONE HIGH DOSE FLUZONE HIGH DOSE 2022-01-04 Completed [facility] OVER 65 OVER 65 10:21:00 - [facility] FLUZONE HIGH DOSE FLUZONE HIGH DOSE 2022-01-04 Completed [facility] OVER 65 OVER 65 10:21:00 - [facility] FLUZONE HIGH DOSE FLUZONE HIGH DOSE 2022-01-04 Completed [facility] OVER 65 OVER 65 10:21:00 - [facility] FLUZONE HIGH DOSE FLUZONE HIGH DOSE 2022-01-04 Completed [facility] OVER 65 OVER 65 10:21:00 - [facility] FLUZONE HIGH DOSE FLUZONE HIGH DOSE 2022-01-04 Completed [facility] OVER 65 OVER 65 10:21:00 - [facility] FLUZONE HIGH DOSE FLUZONE HIGH DOSE 2022-01-04 Completed [facility] OVER 65 OVER 65 10:21:00 [facility] FLUZONE HIGH DOSE FLUZONE HIGH DOSE 2022-01-04 Completed [facility] OVER 65 OVER 65 10:21:00 [facility] FLUZONE HIGH DOSE FLUZONE HIGH DOSE 2022-01-04 Completed [facility] OVER 65 OVER 65 10:21:00 - [facility] FLUZONE HIGH DOSE FLUZONE HIGH DOSE 2022-01-04 Completed [facility] OVER 65 OVER 65 10:21:00 - [facility] FLUZONE HIGH DOSE FLUZONE HIGH DOSE 2022-01-04 Completed [facility] OVER 65 OVER 65 10:21:00 [facility] FLUZONE HIGH DOSE FLUZONE HIGH DOSE 2022-01-04 Completed [facility] OVER 65 OVER 65 10:21:00 [facility] Moderna COVID-19 Moderna COVID-19 2021-01-25 Com[facility] (Low Dose Vaccine (Low Dose 08:40:00 - [facility] Booster) Booster) [facility] [address] COVID19 2021-01-25 Completed [facility] Vaccine (Low Dose Vaccine (Low Dose 08:40:00 - [facility] Booster) Booster) [facility] [address] COVID19 2021-01-25 Completed [facility] Vaccine (Low Dose Vaccine (Low Dose 08:40:00 - [facility] Booster) Booster) [facility] [address] [facility] Vaccine (Low Dose Vaccine (Low Dose 08:40:00 - [facility] Booster) Booster) [facility] [address] [facility]-25 Com[facility] Vaccine (Low Dose Vaccine (Low Dose 08:40:00 - [facility] Booster) Booster) [facility] [address] [facility]-25 Com[facility] Vaccine (Low Dose Vaccine (Low Dose 08:40:00 - [facility] Booster) Booster) [facility] [address] [facility]-25 Com[facility] Vaccine (Low Dose Vaccine (Low Dose 08:40:00 - [facility] Booster) Booster) [facility] [address] [facility]-25 Com[facility] Vaccine (Low Dose Vaccine (Low Dose 08:40:00 - [facility] Booster) Booster) [facility] [address] [facility]-25 Com[facility] Vaccine (Low Dose Vaccine (Low Dose 08:40:00 - [facility] Booster) Booster) [facility] [address] [facility]-01-25 Com[facility] Vaccine (Low Dose Vaccine (Low Dose 08:40:00 - [facility] Booster) Booster) [facility] [address] COVID19 2021-01-25 Completed [facility] Vaccine (Low Dose Vaccine (Low Dose 08:40:00 - [facility] Booster) Booster) [facility] [address] [facility]-01-25 Com[facility] Vaccine (Low Dose Vaccine (Low Dose 08:40:00 - [facility] Booster) Booster) [facility] COVID19 [facility] COVID19 2021-01-25 Completed [facility] Vaccine (Low Dose Vaccine (Low Dose 08:40:00 - [facility] Booster) Booster) [facility] [address] COVID19 2021-01-25 Completed [facility] Vaccine (Low Dose Vaccine (Low Dose 08:40:00 - [facility] Booster) Booster) [facility] [address] COVID19 2021-01-25 Completed [facility] Vaccine (Low Dose Vaccine (Low Dose 08:40:00 - [facility] Booster) Booster) [facility] [address] COVID19 2021-01-25 Completed [facility] Vaccine (Low Dose Vaccine (Low Dose 08:40:00 - [facility] Booster) Booster) [facility] [address] COVID19 2021-01-25 Completed [facility] Vaccine (Low Dose Vaccine (Low Dose 08:40:00 - [facility] Booster) Booster) [facility] [address] COVID19 2021-01-25 Completed [facility] Vaccine (Low Dose Vaccine (Low Dose 08:40:00 - [facility] Booster) Booster) [facility] [address] COVID19 2021-01-25 Completed [facility] Vaccine (Low Dose Vaccine (Low Dose 08:40:00 - [facility] Booster) Booster) [facility] [address] COVID19 2021-01-25 Completed [facility] Vaccine (Low Dose Vaccine (Low Dose 08:40:00 - [facility] Booster) Booster) [facility] [address] COVID19 2021-01-25 Completed [facility] Vaccine (Low Dose Vaccine (Low Dose 08:40:00 - [facility] Booster) Booster) [facility] FLUZONE HIGH DOSE FLUZONE HIGH DOSE 2020-11-24 Completed [facility] OVER 65 OVER 65 09:39:00 - [facility] FLUZONE HIGH DOSE FLUZONE HIGH DOSE 2020-11-24 Completed [facility] OVER 65 OVER 65 09:39:00 - [facility] FLUZONE HIGH DOSE FLUZONE HIGH DOSE 2020-11-24 Completed [facility] OVER 65 OVER 65 09:39:00 - [facility] FLUZONE HIGH DOSE FLUZONE HIGH DOSE 2020-11-24 Completed [facility] OVER 65 OVER 65 09:39:00 - [facility] FLUZONE HIGH DOSE FLUZONE HIGH DOSE 2020-11-24 Completed [facility] OVER 65 OVER 65 09:39:00 - [facility] FLUZONE HIGH DOSE FLUZONE HIGH DOSE 2020-11-24 Completed [facility] OVER 65 OVER 65 09:39:00 - [facility] FLUZONE HIGH DOSE FLUZONE HIGH DOSE 2020-11-24 Completed [facility] OVER 65 OVER 65 09:39:00 - [facility] FLUZONE HIGH DOSE FLUZONE HIGH DOSE 2020-11-24 Completed [facility] OVER 65 OVER 65 09:39:00 - [facility] FLUZONE HIGH DOSE FLUZONE HIGH DOSE 2020-11-24 Completed [facility] OVER 65 OVER 65 09:39:00 - [facility] FLUZONE HIGH DOSE FLUZONE HIGH DOSE 2020-11-24 Completed [facility] OVER 65 OVER 65 09:39:00 - [facility] FLUZONE HIGH DOSE FLUZONE HIGH DOSE 2020-11-24 Completed [facility] OVER 65 OVER 65 09:39:00 - [facility] FLUZONE HIGH DOSE FLUZONE HIGH DOSE 2020-11-24 Completed [facility] OVER 65 OVER 65 09:39:00 - [facility] FLUZONE HIGH DOSE FLUZONE HIGH DOSE 2020-11-24 Completed [facility] OVER 65 OVER 65 09:39:00 - [facility] FLUZONE HIGH DOSE FLUZONE HIGH DOSE 2020-11-24 Completed [facility] OVER 65 OVER 65 09:39:00 - [facility] FLUZONE HIGH DOSE FLUZONE HIGH DOSE 2020-11-24 Completed [facility] OVER 65 OVER 65 09:39:00 - [facility] FLUZONE HIGH DOSE FLUZONE HIGH DOSE 2020-11-24 Completed [facility] OVER 65 OVER 65 09:39:00 - [facility] FLUZONE HIGH DOSE FLUZONE HIGH DOSE 2020-11-24 Completed [facility] OVER 65 OVER 65 09:39:00 - [facility] FLUZONE HIGH DOSE FLUZONE HIGH DOSE 2020-11-24 Completed [facility] OVER 65 OVER 65 09:39:00 - [facility] FLUZONE HIGH DOSE FLUZONE HIGH DOSE 2020-11-24 Completed [facility] OVER 65 OVER 65 09:39:00 - [facility] FLUZONE HIGH DOSE FLUZONE HIGH DOSE 2020-11-24 Completed [facility] OVER 65 OVER 65 09:39:00 - [facility] FLUZONE HIGH DOSE FLUZONE HIGH DOSE 2020-11-24 Completed [facility] OVER 65 OVER 65 09:39:00 - [facility] FLUZONE HIGH DOSE FLUZONE HIGH DOSE 2020-11-24 Completed [facility] OVER 65 OVER 65 09:39:00 - [facility] FLUZONE HIGH DOSE FLUZONE HIGH DOSE 2020-11-24 Completed [facility] OVER 65 OVER 65 09:39:00 - [facility] FLUZONE HIGH DOSE FLUZONE HIGH DOSE 2020-11-24 Completed [facility] OVER 65 OVER 65 09:39:00 [facility] Moderna COVID-19 Moderna COVID-19 2020-04-27 Completed [facility] Vaccine Vaccine 10:19:00 - [facility] Moderna COVID-19 Moderna COVID-19 2020-04-27 Completed [facility] Vaccine Vaccine 10:19:00 - [facility] Moderna COVID-19 Moderna COVID-19 2020-04-27 Completed [facility] Vaccine Vaccine 10:19:00 [facility] Moderna COVID-19 Moderna COVID-19 2020-04-27 Completed [facility] Vaccine Vaccine 10:19:00 - [facility] Moderna COVID-19 Moderna COVID-19 2020-04-27 Completed [facility] Vaccine Vaccine 10:19:00 - [facility] Moderna COVID-19 Moderna COVID-19 2020-04-27 Completed [facility] Vaccine Vaccine 10:19:00 - [facility] Moderna COVID-19 Moderna COVID-19 2020-04-27 Completed [facility] Vaccine Vaccine 10:19:00 - [facility] Moderna COVID-19 Moderna COVID-19 2020-04-27 Completed [facility] Vaccine Vaccine 10:19:00 - [facility] Moderna COVID-19 Moderna COVID-19 2020-04-27 Completed [facility] Vaccine Vaccine 10:19:00 - [facility] Moderna COVID-19 Moderna COVID-19 2020-04-27 Completed [facility] Vaccine Vaccine 10:19:00 - [facility] Moderna COVID-19 Moderna COVID-19 2020-04-27 Completed [facility] Vaccine Vaccine 10:19:00 - [facility] Moderna COVID-19 Moderna COVID-19 2020-04-27 Completed [facility] Vaccine Vaccine 10:19:00 - [facility] Moderna COVID-19 Moderna COVID-19 2020-04-27 Completed [facility] Vaccine Vaccine 10:19:00 - [facility] Moderna COVID-19 Moderna COVID-19 2020-04-27 Completed [facility] Vaccine Vaccine 10:19:00 - [facility] Moderna COVID-19 Moderna COVID-19 2020-04-27 Completed [facility] Vaccine Vaccine 10:19:00 - [facility] Moderna COVID-19 Moderna COVID-19 2020-04-27 Completed [facility] Vaccine Vaccine 10:19:00 - [facility] Moderna COVID-19 Moderna COVID-19 2020-04-27 Completed [facility] Vaccine Vaccine 10:19:00 - [facility] Moderna COVID-19 Moderna COVID-19 2020-04-27 Completed [facility] Vaccine Vaccine 10:19:00 - [facility] Moderna COVID-19 Moderna COVID-19 2020-04-27 Completed [facility] Vaccine Vaccine 10:19:00 - [facility] Moderna COVID-19 Moderna COVID-19 2020-04-27 Completed [facility] Vaccine Vaccine 10:19:00 - [facility] Moderna COVID-19 Moderna COVID-19 2020-04-27 Completed [facility] Vaccine Vaccine 10:19:00 - [facility] Moderna COVID-19 Moderna COVID-19 2020-04-27 Completed [facility] Vaccine Vaccine 10:19:00 - [facility] Moderna COVID-19 Moderna COVID-19 2020-04-27 Completed [facility] Vaccine Vaccine 10:19:00 - [facility] Moderna COVID-19 Moderna COVID-19 2020-04-27 Completed [facility] Vaccine Vaccine 10:19:00 - [facility] Moderna COVID-19 Moderna COVID-19 2020-03-30 Completed [facility] Vaccine Vaccine 10:19:00 - [facility] Moderna COVID-19 Moderna COVID-19 2020-03-30 Completed [facility] Vaccine Vaccine 10:19:00 - [facility] Moderna COVID-19 Moderna COVID-19 2020-03-30 Completed [facility] Vaccine Vaccine 10:19:00 - [facility] Moderna COVID-19 Moderna COVID-19 2020-03-30 Completed [facility] Vaccine Vaccine 10:19:00 - [facility] Moderna COVID-19 Moderna COVID-19 2020-03-30 Completed [facility] Vaccine Vaccine 10:19:00 - [facility] Moderna COVID-19 Moderna COVID-19 2020-03-30 Completed [facility] Vaccine Vaccine 10:19:00 - [facility] Moderna COVID-19 Moderna COVID-19 2020-03-30 Completed [facility] Vaccine Vaccine 10:19:00 - [facility] Moderna COVID-19 Moderna COVID-19 2020-03-30 Completed [facility] Vaccine Vaccine 10:19:00 - [facility] Moderna COVID-19 Moderna COVID-19 2020-03-30 Completed [facility] Vaccine Vaccine 10:19:00 - [facility] Moderna COVID-19 Moderna COVID-19 2020-03-30 Completed [facility] Vaccine Vaccine 10:19:00 - [facility] Moderna COVID-19 Moderna COVID-19 2020-03-30 Completed [facility] Vaccine Vaccine 10:19:00 - [facility] Moderna COVID-19 Moderna COVID-19 2020-03-30 Completed [facility] Vaccine Vaccine 10:19:00 - [facility] Moderna COVID-19 Moderna COVID-19 2020-03-30 Completed [facility] Vaccine Vaccine 10:19:00 - [facility] Moderna COVID-19 Moderna COVID-19 2020-03-30 Completed [facility] Vaccine Vaccine 10:19:00 - [facility] Moderna COVID-19 Moderna COVID-19 2020-03-30 Completed [facility] Vaccine Vaccine 10:19:00 - [facility] Moderna COVID-19 Moderna COVID-19 2020-03-30 Completed [facility] Vaccine Vaccine 10:19:00 - [facility] Moderna COVID-19 Moderna COVID-19 2020-03-30 Completed [facility] Vaccine Vaccine 10:19:00 - [facility] Moderna COVID-19 Moderna COVID-19 2020-03-30 Completed [facility] Vaccine Vaccine 10:19:00 - [facility] Moderna COVID-19 Moderna COVID-19 2020-03-30 Completed [facility] Vaccine Vaccine 10:19:00 - [facility] Moderna COVID-19 Moderna COVID-19 2020-03-30 Completed [facility] Vaccine Vaccine 10:19:00 - [facility] Moderna COVID-19 Moderna COVID-19 2020-03-30 Completed [facility] Vaccine Vaccine 10:19:00 - [facility] Moderna COVID-19 Moderna COVID-19 2020-03-30 Completed [facility] Vaccine Vaccine 10:19:00 - [facility] Moderna COVID-19 Moderna COVID-19 2020-03-30 Completed [facility] Vaccine Vaccine 10:19:00 - [facility] Moderna COVID-19 Moderna COVID-19 2020-03-30 Completed [facility] Vaccine Vaccine 10:19:00 - [facility] FluAD FluAD 2019-11-20 Completed [facility] 09:54:00 - [facility] FluAD FluAD 2019-11-20 Completed [facility] 09:54:00 - [facility] FluAD FluAD 2019-11-20 Completed [facility] 09:54:00 - [facility] FluAD FluAD 2019-11-20 Completed [facility] 09:54:00 - [facility] [facility] 2019-11-20 [facility] 09:[facility]:00 - [facility] FluAD FluAD 2019-11-20 Completed [facility] 09:54:00 - [facility] FluAD FluAD 2019-11-20 Completed [facility] 09[facility]54:00 - [facility] FluAD FluAD 2019-11-20 [facility]pleted [facility] 09[facility]54:00 - [facility] FluAD FluAD 2019-11-20 Completed [facility] 09[facility]54:00 - [facility] FluAD FluAD 2019-11-20 Completed [facility] 09[facility]54:00 - [facility] FluAD FluAD 2019-11-20 Completed [facility] 09[facility]54:00 - [facility] FluAD FluAD 2019-11-20 Completed [facility] 09[facility]54:00 - [facility] FluAD FluAD 2019-11-20 Completed [facility] 09:54:00 - [facility] FluAD FluAD 2019-11-20 Completed [facility] 09:54:00 - [facility] FluAD FluAD 2019-11-20 Completed [facility] 09:54:00 - [facility] FluAD FluAD 2019-11-20 Completed [facility] 09:54:00 - [facility] FluAD FluAD 2019-11-20 Completed [facility] 09[facility]54:00 - [facility] FluAD FluAD 2019-11-20 Completed [facility] 09:54:00 - [facility] FluAD FluAD 2019-11-20 Completed [facility] 09[facility]54:00 - [facility] FluAD FluAD 2019-11-20 Completed [facility] 09:54:00 - [facility] FluAD FluAD 2019-11-20 Completed [facility] 09[facility]54:00 - [facility] FluAD FluAD 2019-11-20 Completed [facility] 09[facility]54:00 - [facility] FluAD FluAD 2019-11-20 Completed [facility] 09:54:00 - [facility] FluAD FluAD 2019-11-20 Completed [facility] 09:54:00 - [facility] Pneumovax (PPSV23) Pneumovax (PPSV23) 2017-02-27 Completed [facility] 10:19:00 - [facility] Pneumovax (PPSV23) Pneumovax (PPSV23) 2017-02-27 Completed [facility] 10:19:00 - [facility] Pneumovax (PPSV23) Pneumovax (PPSV23) 2017-02-27 Completed [facility] 10:19:00 - [facility] Pneumovax (PPSV23) Pneumovax (PPSV23) 2017-02-27 Completed [facility] 10:19:00 [facility] Pneumovax (PPSV23) Pneumovax (PPSV23) 2017-02-27 Completed [facility] 10:19:00 - [facility] Pneumovax (PPSV23) Pneumovax (PPSV23) 2017-02-27 Completed [facility] 10:19:00 - [facility] Pneumovax (PPSV23) Pneumovax (PPSV23) 2017-02-27 Completed [facility] 10:19:00 [facility] Pneumovax (PPSV23) Pneumovax (PPSV23) 2017-02-27 Completed [facility] 10:19:00 [facility] Pneumovax (PPSV23) Pneumovax (PPSV23) 2017-02-27 Completed [facility] 10:19:00 [facility] Pneumovax (PPSV23) Pneumovax (PPSV23) 2017-02-27 Completed [facility] 10:19:00 - [facility] Pneumovax (PPSV23) Pneumovax (PPSV23) 2017-02-27 Completed [facility] 10:19:00 - [facility] Pneumovax (PPSV23) Pneumovax (PPSV23) 2017-02-27 Completed [facility] 10:19:00 - [facility] Pneumovax (PPSV23) Pneumovax (PPSV23) 2017-02-27 Completed [facility] 10:19:00 - [facility] Pneumovax (PPSV23) Pneumovax (PPSV23) 2017-02-27 Completed [facility] 10:19:00 - [facility] Pneumovax (PPSV23) Pneumovax (PPSV23) 2017-02-27 Completed [facility] 10:19:00 - [facility] Pneumovax (PPSV23) Pneumovax (PPSV23) 2017-02-27 Completed [facility] 10:19:00 - [facility] Pneumovax (PPSV23) Pneumovax (PPSV23) 2017-02-27 Completed [facility] 10:19:00 - [facility] Pneumovax (PPSV23) Pneumovax (PPSV23) 2017-02-27 Completed [facility] 10:19:00 [facility] Pneumovax (PPSV23) Pneumovax (PPSV23) 2017-02-27 Completed [facility] 10:19:00 [facility] Pneumovax (PPSV23) Pneumovax (PPSV23) 2017-02-27 Completed [facility] 10:19:00 [facility] Pneumovax (PPSV23) Pneumovax (PPSV23) 2017-02-27 Completed [facility] 10:19:00 [facility] Pneumovax (PPSV23) Pneumovax (PPSV23) 2017-02-27 Completed [facility] 10:19:00 [facility] Pneumovax (PPSV23) Pneumovax (PPSV23) 2017-02-27 Completed [facility] 10:19:00 [facility] Pneumovax (PPSV23) Pneumovax (PPSV23) 2017-02-27 Completed [facility] 10:19:00 [facility] Vital Signs Vital Name Observation Time Observation Value Comments Source height 2022-04-06 10:50:00 77.5 [in_i] [facility] weight 2022-04-06 10:50:00 363.6 [lb_av] [facility] temperature 2022-04-06 10:50:00 97.3 [degF] [facility] bmi 2022-04-06 10:50:00 42.56 kg/m2 [facility] oximetry 2022-04-06 10:50:00 97 % [facility] respiratory rate 2022-04-06 10:50:00 17 /min Comm on [facility] blood pressure 2022-04-06 10:50:00 133 mm[Hg] [facility] systolic [facility] blood pressure 2022-04-06 10:50:00 67 mm[Hg] [facility] diastolic [facility] Systolic blood 2022-03-28 22:34:00 130 mm[Hg] [facility] pressure Medicine Diastolic blood 2022-03-28 22:34:00 78 mm[Hg] [facility] pressure Medicine Heart rate 2022-03-28 22:24:00 94 /min [facility] Body height 2022-03-28 22:24:00 203.2 cm [facility] Body weight 2022-03-28 22:24:00 162.751 kg [facility] BMI 2022-03-28 22:24:00 39.42 kg/m2 [facility] WEIGHT 2022-02-25 05:03:00 166.243 kg WEIGHT 2022-02-21 05:52:00 169.736 kg WEIGHT 2022-02-20 05:23:00 168.239 kg WEIGHT 2022-02-25 05:03:00 166.243 kg WEIGHT 2022-02-21 05:52:00 169.736 kg WEIGHT 2022-02-20 05:23:00 168.239 kg WEIGHT 2022-02-25 05:03:00 166.243 kg WEIGHT 2022-02-21 05:52:00 169.736 kg WEIGHT 2022-02-20 05:23:00 168.239 kg height 2022-02-17 11:50:00 77.5 [in_i] [facility] weight 2022-02-17 11:50:00 366.2 [lb_av] [facility] bmi 2022-02-17 11:50:00 42.86 kg/m2 [facility] Systolic blood 2022-02-07 22:12:00 165 mm[Hg] [facility] pressure Medicine Diastolic blood 2022-02-07 22:12:00 70 mm[Hg] [facility] Medicine Heart rate 2022-02-07 22:11:00 75 /min [facility] Body height 2022-02-07 22:11:00 198.1 cm [facility] 2022-02-07 22:11:00 166.924 kg [facility] BMI 2022-02-07 22:11:00 42.53 kg/m2 [facility] height 2022-01-19 13:30:00 77.5 [in_i] [facility] weight 2022-01-19 13:30:00 366.2 [lb_av] [facility] temperature 2022-01-19 13:30:00 97.2 [degF] [facility] bmi 2022-01-19 13:30:00 42.86 kg/m2 [facility] oximetry 2022-01-19 13:30:00 98 % [facility] respiratory rate 2022-01-19 13:30:00 18 /min [facility] on [facility] blood pressure 2022-01-19 13:30:00 138 mm[Hg] [facility] - systolic [facility] blood pressure 2022-01-19 13:30:00 70 mm[Hg] [facility] - diastolic [facility] height 2022-01-04 10:00:00 77.5 [in_i] [facility] weight 2022-01-04 10:00:00 365.3 [lb_av] [facility] temperature 2022-01-04 10:00:00 97.9 [degF] [facility] bmi 2022-01-04 10:00:00 42.76 kg/m2 [facility] oximetry 2022-01-04 10:00:00 98 % [facility] respiratory rate 2022-01-04 10:00:00 18 /min [facility] on [facility] blood pressure 2022-01-04 10:00:00 137 mm[Hg] [facility] systolic [facility] blood pressure 2022-01-04 10:00:00 81 mm[Hg] [facility] diastolic [facility] Systolic blood 2021-11-11 18:30:00 144 mm[Hg] [facility] pressure Medicine Diastolic blood 2021-11-11 18:30:00 66 mm[Hg] [facility] pressure Medicine Heart rate 2021-11-11 18:25:00 63 /min [facility] Body height 2021-11-11 18:25:00 200.7 cm [facility] Body weight 2021-11-11 18:25:00 166.017 kg [facility] BMI 2021-11-11 18:25:00 41.23 kg/m2 [facility] height 2021-11-04 10:30:00 77.5 [in_i] [facility] weight 2021-11-04 10:30:00 365 [lb_av] [facility] temperature 2021-11-04 10:30:00 97.3 [degF] [facility] bmi 2021-11-04 10:30:00 42.72 kg/m2 [facility] oximetry 2021-11-04 10:30:00 94 % [facility] respiratory rate 2021-11-04 10:30:00 18 /min [facility] on [facility] blood pressure 2021-11-04 10:30:00 122 mm[Hg] [facility] - systolic [facility] blood pressure 2021-11-04 10:30:00 76 mm[Hg] [facility] - diastolic [facility] height 2021-11-04 10:40:00 77.5 [in_i] [facility] weight 2021-11-04 10:40:00 365 [lb_av] [facility] temperature 2021-11-04 10:40:00 97.3 [degF] [facility] bmi 2021-11-04 10:40:00 42.72 kg/m2 [facility] oximetry 2021-11-04 10:40:00 94 % [facility] respiratory rate 2021-11-04 10:40:00 18 /min [facility] on [facility] blood pressure 2021-11-04 10:40:00 122 mm[Hg] [facility] systolic [facility] blood pressure 2021-11-04 10:40:00 76 mm[Hg] [facility] diastolic [facility] height 2021-10-04 09:50:00 80 [in_i] [facility] weight 2021-10-04 09:50:00 365.0 [lb_av] [facility] temperature 2021-10-04 09:50:00 96.9 [degF] [facility] bmi 2021-10-04 09:50:00 40.09 kg/m2 [facility] oximetry 2021-10-04 09:50:00 97 % [facility] respiratory rate 2021-10-04 09:50:00 18 /min [facility] on [facility] blood pressure 2021-10-04 09:50:00 139 mm[Hg] [facility] - systolic [facility] blood pressure 2021-10-04 09:50:00 63 mm[Hg] [facility] - diastolic [facility] HEIGHT 2021-09-29 08:12:00 203.2 cm WEIGHT 2021-09-29 [...] kg Systolic blood 2021-09-23 18:09:00 142 mm[Hg] [facility] pressure Medicine Diastolic blood 2021-09-23 18:09:00 70 mm[Hg] [facility] pressure Medicine Heart rate 2021-09-23 18:08:00 60 /min [facility] Body height 2021-09-23 18:08:00 203.2 cm [facility] Body weight 2021-09-23 18:08:00 167.831 kg [facility] BMI 2021-09-23 18:08:00 40.65 kg/m2 [facility] height 2021-08-31 11:20:00 80 [in_i] [facility] weight 2021-08-31 11:20:00 371.2 [lb_av] [facility] temperature 2021-08-31 11:20:00 97.9 [degF] [facility] bmi 2021-08-31 11:20:00 40.77 kg/m2 [facility] oximetry 2021-08-31 11:20:00 97 % [facility] respiratory rate 2021-08-31 11:20:00 17 /min [facility] on [facility] blood pressure 2021-08-31 11:20:00 132 mm[Hg] [facility] - systolic [facility] blood pressure 2021-08-31 11:20:00 75 mm[Hg] [facility] - diastolic [facility] height 2021-05-17 09:20:00 80 [in_i] [facility] weight 2021-05-17 09:20:00 371.5 [lb_av] [facility] temperature 2021-05-17 09:20:00 97.8 [degF] [facility] bmi 2021-05-17 09:20:00 40.81 kg/m2 [facility] oximetry 2021-05-17 09:20:00 98 % [facility] respiratory rate 2021-05-17 09:20:00 19 /min [facility] blood pressure 2021-05-17 09:20:00 138 mm[Hg] [facility] - systolic [facility] blood pressure 2021-05-17 09:20:00 68 mm[Hg] [facility] - diastolic [facility] height 2021-02-16 08:50:00 80 [in_i] [facility] weight 2021-02-16 08:50:00 378.3 [lb_av] [facility] temperature 2021-02-16 08:50:00 97.7 [degF] [facility] bmi 2021-02-16 08:50:00 41.55 kg/m2 [facility] oximetry 2021-02-16 08:50:00 97 % [facility] respiratory rate 2021-02-16 08:50:00 18 /min [facility] on [facility] blood pressure 2021-02-16 08:50:00 133 mm[Hg] [facility] - systolic [facility] blood pressure 2021-02-16 08:50:00 65 mm[Hg] [facility] - diastolic [facility] height 2020-11-24 08:40:00 80 [in_i] [facility] weight 2020-11-24 08:40:00 372.8 [lb_av] [facility] temperature 2020-11-24 08:40:00 96.8 [degF] [facility] bmi 2020-11-24 08:40:00 40.95 kg/m2 [facility] oximetry 2020-11-24 08:40:00 96 % [facility] respiratory rate 2020-11-24 08:40:00 20 /min [facility] blood pressure 2020-11-24 08:40:00 138 mm[Hg] [facility] - systolic [facility] blood pressure 2020-11-24 08:40:00 82 mm[Hg] [facility] - diastolic [facility] height 2020-11-24 09:00:00 80 [in_i] [facility] weight 2020-11-24 09:00:00 372.8 [lb_av] [facility] temperature 2020-11-24 09:00:00 96.8 [degF] [facility] bmi 2020-11-24 09:00:00 40.95 kg/m2 [facility] oximetry 2020-11-24 09:00:00 96 % [facility] S [facility] respiratory rate 2020-11-24 09:00:00 20 /min [facility] blood pressure 2020-11-24 09:00:00 138 mm[Hg] [facility] - systolic [facility] blood pressure 2020-11-24 09:00:00 82 mm[Hg] [facility] - diastolic [facility] Systolic blood 2022-02-26 07:00:00 169 mm[Hg] [facility] Diastolic blood 2022-02-26 07:00:00 77 mm[Hg] [facility] Heart rate 2022-02-26 07:00:00 95 /min [facility] Body temperature 2022-02-26 07:00:00 36.67 Saumya [facility] Respiratory rate 2022-02-26 07:00:00 20 /min [facility] Oxygen saturation in 2022-02-26 07:00:00 97 /min [facility] Arterial blood by Medical Ce [facility]ter Pulse oximetry Body weight 2022-02-25 05:03:00 166.243 kg [facility] BMI 2022-02-25 05:03:00 40.26 kg/m2 [facility] Heart rate 2021-09-30 12:01:00 92 /min [facility] Systolic blood 2021-09-30 12:00:00 153 mm[Hg] [facility] Diastolic blood 2021-09-30 12:00:00 68 mm[Hg] [facility] Body temperature 2021-09-30 12:00:00 36.17 Saumya [facility] Respiratory rate 2021-09-30 12:00:00 17 /min [facility] Oxygen saturation in 2021-09-30 12:00:00 95 /min [facility] Arterial blood by [facility] Pulse oximetry Body height 2021-09-29 08:12:00 203.2 cm [facility] Body weight 2021-09-29 08:12:00 167.831 kg [facility] BMI 2021-09-29 08:12:00 40.65 kg/m2 [facility] Systolic (mm Hg) 2021-06-15 15:07:00 Car rial [place] Diastolic (mm Hg) 2021-06-15 15:07:00 Mem orial [place] Heart Rate 2021-06-15 15:07:00 Kylie Dawkins Respitory Rate 2021-06-15 15:07:00 Rigoberto Sutton Height 2021-06-15 15:07:00 203.2 cm Kylie Dawkins Weight 2021-06-15 15:07:00 Kylie Dawkins BMI Calculated 2021-06-15 15:07:00 Rigoberto Sutton Procedures Procedure Date / Time Performing Clinician Source Performed ELECTROCARDIOGRAM COMPLETE 2022-03-28 22:37:18 Lilian Deleon [facility] ELECTROCARDIOGRAM COMPLETE 2022-03-28 16:37:18 B [facility] POCT-GLUCOSE METER 2022-02-26 07:37:00 [facility] 2022-02-26 04:37:00 Luis Lay [facility] POCT-GLUCOSE METER 2022-02-25 22:51[facility] 2022-02-25 21:36[facility] PO[facility]SE [facility]ER 2022-02-25 17:18:00 [facility] P.E.T./CT WHOLE BODY PI 2022-02-25 13:31:00 Yvonne Bolton [facility] POCT-GLUCOSE METER 2022-02-25 11:23:00 [facility]IC MET[facility]OLIC PANEL 2022-02-25 10:28[facility] 2022-02-25 08:03:00 [facility] SARS-COV2/RT-PCR ([facility] & REF 2022-02-25 07:52:00 Garret Lovett [facility] LABS) [facility] CBC W/PLT COUNT & AUTO 2022-02-25 04:35:00 Mateo [facility] BASIC METABOLIC PANEL 2022-02-25 04:35:00 Mateo [facility] CBC W/PLT COUNT & AUTO 2022-02-25 04:35:00 Mateo [facility] POCT-GLUCOSE METER 2022-02-24 21:12:00 Mateo [facility] POCT-GLUCOSE METER 2022-02-24 17:46:00 Mateo [facility] POCT-GLUCOSE METER 2022-02-24 11:32:00 Mateo [facility] POCT-GLUCOSE METER 2022-02-24 08:24:00 Mateo [facility] CBC W/PLT COUNT & AUTO 2022-02-24 04:59:00 Mateo [facility] BASIC METABOLIC PANEL 2022-02-24 04:59:00 Mateo [facility] HEPATIC FUNCTION PANEL 2022-02-24 04:59:00 Jamey, [facility] CBC W/PLT COUNT & AUTO 2022-02-24 04:59:00 Mateo [facility] POCT-GLUCOSE METER 2022-02-23 19:54:00 Mateo [facility] POCT-GLUCOSE METER 2022-02-23 17:19:00 Mateo [facility] XR CHEST 1 VIEW PORTABLE / 2022-02-23 16:05:00 Eligio Roach [facility] SODIUM, RANDOM URINE 2022-02-23 13:21:00 Nicki Scott [facility] I [facility] POCT-GLUCOSE METER 2022-02-23 12:03:00 Mateo [facility] TRANSESOPHAGEAL ECHO 2022-02-23 09:33:22 Mateo [facility] POCT-GLUCOSE METER 2022-02-23 07:09:00 Mateo [facility] CBC W/PLT COUNT & AUTO 2022-02-23 04:23:[address] [facility] BASIC METABOLIC PANEL 2022-02-23 04:23:00 Mateo [facility] CBC W/PLT COUNT & AUTO 2022-02-23 04:23:[address] [facility] (CELLAVISION MANUAL DIFF) 2022-02-23 04:23:00 Eligio Roach [facility] (SCN) SCANNED ORDER 2022-02-23 00:00:00 [facility] POCT-GLUCOSE METER 2022 21:19:00 Mateo [facility] POCT-GLUCOSE METER 2022 17:14:00 Mateo [facility] POCT-GLUCOSE METER 2022 14:47:00 Mateo [facility] REPORT OF PROCEDURE - 2022 14:08[facility] EGD 2022 13:49:00 [facility] (ESOPHAGOGASTRODUODENOSCOPY) [facility] POCT-GLUCOSE METER 2022 12:10:00 Mateo [facility] COLOR-FLOW MAPPING 2022 11:59:49 Mateo [facility] CONT WAVE PULSED DOPPLER 2022 11:59:49 Mateo [facility] POCT-GLUCOSE METER 2022 08:29:00 Mateo [facility] CBC W/PLT COUNT & AUTO 2022 04:35:00 Mateo [facility] BASIC METABOLIC PANEL 2022 04:35:00 Mateo [facility] ALPHA FETOPROTEIN (AFP), 2022 04:35:00 [facility] CBC W/PLT COUNT & AUTO 2022 04:35:00 Mateo [facility] POCT-GLUCOSE METER 2022-02-21 23:15:00 Mateo [facility] POCT-GLUCOSE METER 2022-02-21 21:26:00 Mateo [facility] POCT-GLUCOSE METER 2022-02-21 17:27:00 Mateo [facility] HEPATITIS B CORE ANTIBODY, 2022-02-21 16:20:00 Jeremy Avila [facility] HEPATITIS A ANTIBODY, IGG 2022-02-21 16:20:00 Jeremy Avila [facility] I [facility] HEPATITIS B SURFACE ANTIBODY 2022-02-21 16:20:00 Margarita [facility] HEPATITIS B SURFACE ANTIGEN 2022-02-21 16:20:00 Margarita [facility] HEPATITIS C ANTIBODY 2022-02-21 16:20:00 Margarita [facility] FERRITIN 2022-02-21 16:20:00 Margarita [facility] CERULOPLASMIN 2022-02-21 16:19:00 Margarita [facility] IRON, TIBC, % SAT. (WITHOUT 2022-02-21 16:19:00 [facility] FERRITIN) [facility] [id number], SERUM 2022-02-21 16:19:00 Margarita [facility] ANTI-NUCLEAR ANTIBODY (ARACELIS) 2022-02-21 16:19:00 Margarita [facility] ANTI-MITOCHONDRIAL AB, 2022-02-21 16:19:00 Jeremy Avila [facility] REFLEX TO TITER [facility] ACTIN (SMOOTH MUSCLE) 2022-02-21 16:19:00 Marg[facility]ita [facility] ANTIBODY, IGG [facility] PHOSPHATIDYLETHANOL, BLOOD 2022-02-21 16:19:00 Dadlani, Apaar C [facility] MITOCHONDRIAL AB SCREEN 2022-02-21 16:19:00 Jeremy Avila [facility] MITOCHONDRIAL AB TITER 2022-02-21 16:19:00 [facility]ita [facility] POCT-GLUCOSE METER 2022-02-21 12:53:00 Mateo [facility] POCT-GLUCOSE METER 2022-02-21 07:27:00 Mateo [facility] CT ABDOMEN/PELVIS WITH IV 2022-02-21 01:11:00 Avelina Das [facility] POCT-GLUCOSE METER 2022-02-20 20:27:00 Mateo [facility] POCT-GLUCOSE METER 2022-02-20 17:29:00 Mateo [facility] URINALYSIS W/ REFLEX URINE 2022-02-20 16:55:00 Avelina Das [facility] POCT-GLUCOSE METER 2022-02-20 12:19:00 Mateo [facility] POCT-GLUCOSE METER 2022-02-20 08:18:00 Mateo [facility] BASIC METABOLIC PANEL 2022-02-20 06:02:00 Bony, [facility] HEPATIC FUNCTION PANEL 2022-02-20 06:02:[address] [facility] MAGNESIUM 2022-02-20 06:02:00 Bony [facility] CBC W/PLT COUNT & AUTO 2022-02-20 03:25:00 [facility] DIFFERENTIAL [facility] CBC W/PLT COUNT & AUTO 2022-02-20 03:25:00 [facility] DIFFERENTIAL [facility] POCT-GLUCOSE METER 2022-02-19 21:03:00 Mateo [facility] POCT-GLUCOSE METER 2022-02-19 17:26:00 Mateo [facility] RESPIRATORY PANEL 2022-02-19 13:20:00 [facility]SE METER 2022-02-19 12:24:00 [facility] POCT-GLUCOSE METER 2022-02-19 07:42:00 [facility] BASIC METABOLIC PANEL 2022-02-19 04:31:00 Bony, [facility] HEPATIC FUNCTION PANEL 2022-02-19 04:31:00 Bony, [facility] MAGNESIUM 2022-02-19 04:31:00 Bony, [facility] CBC W/PLT COUNT & AUTO 2022-02-19 04:31:00 Bony, [facility] DIFFERENTIAL [facility] CBC W/PLT COUNT & AUTO 2022-02-19 04:31:00 Bony, [facility] DIFFERENTIAL [facility] POCT-GLUCOSE METER 2022-02-18 20:51:00 [facility] VANCOMYCIN LEVEL, RANDOM 2022-02-18 20:38:00 Lubna Piña [facility] POCT-GLUCOSE METER 2022-02-18 18:08:00 [facility] CT CHEST WITHOUT IV CONTRAST 2022-02-18 17:00:00 [facility] PNEUMONIAE ANTIGEN 2022-02-18 16:26:00 Phil [facility] 2D ECHO W/ DOPPLER 2022-02-18 14:12:40 Steven Piña [facility] (CW/PW/COLOR) [facility] POCT-GLUCOSE METER 2022-02-18 13:28:00 [facility] SARS-COV2/RT-PCR (SLHS & REF 2022-02-18 10:42:00 Garret Lovett [facility] LABS) [facility] BLOOD CULTURE 2022-02-18 10:42:00 Eduin [facility] BLOOD CULTURE 2022-02-18 10:16:00 Eduin [facility] XR CHEST 1 VIEW PORTABLE / 2022-02-18 08:08:00 Brunilda Denny [facility] PROTHROMBIN TIME/INR 2022-02-18 04:23:00 Bony [facility] BASIC METABOLIC PANEL 2022-02-18 04:22:00 Bony [facility] HEPATIC FUNCTION PANEL 2022-02-18 04:22:[address] [facility] HEMOGLOBIN A1C 2022-02-18 04:22:00 Bony [facility] LIPID PANEL 2022-02-18 04:22:00 Bony [facility] MAGNESIUM 2022-02-18 04:22:00 Bony [facility] PHOSPHORUS 2022-02-18 04:22:00 Bony [facility] CBC W/PLT COUNT & AUTO 2022-02-18 04:22:00 [facility] DIFFERENTIAL [facility] CBC W/PLT COUNT & AUTO 2022-02-18 04:22:00 [facility] DIFFERENTIAL [facility] ELECTROCARDIOGRAM COMPLETE 2022-02-07 22:51:19 Lilian Deleon [facility] ELECTROCARDIOGRAM COMPLETE 2022-02-07 16:51:19 B [facility] ([facility], [facility]) CT CHEST/CARDIAC 2022-02-07 14:10:38 [facility] ELECTROCARDIOGRAM COMPLETE 2021-11-11 19:02:02 Lilian Deleon [facility] ELECTROCARDIOGRAM COMPLETE 2021-11-11 14:02:02 B [facility] 2D ECHO W/ DOPPLER 2021-09-30 09:27:27 [facility] POCT-GLUCOSE METER 2021-09-30 06:55:00 Adrienne [facility] XR CHEST 1 VIEW PORTABLE / 2021-09-30 05:37:00 JeanaemilyPankajJoseph Brunilda [facility] BASIC METABOLIC PANEL 2021-09-30 04:22:00 Jennifer [facility] CBC (HEMOGRAM ONLY) 2021-09-30 04:22:00 Jennifer [facility] ECG 12-LEAD 2021-09-30 03:41:43 Jennifer [facility] POCT-GLUCOSE METER 2021-09-29 20:57:00 Adrienne [facility] POCT-ACT 2021-09-29 16:03:00 Adrienne [facility] POCT-GLUCOSE METER 2021-09-29 16:00:00 Adrienne [facility] ECG 12-LEAD 2021-09-29 15:42:23 Unknown, Hl7 [facility] ECG 12-LEAD 2021-09-29 15:42:23 Jennifer [facility] ECG 12-LEAD 2021-09-29 15:42:23 Unknown, Hl7 [facility] PREPARE RBC 2021-09-29 15:30:00 Adrienne [facility] POCT-ACT 2021-09-29 15:00:00 Adrienne [facility] POCT-ACT 2021-09-29 14:01:00 Adrienne [facility] IMPLANTATION, AORTIC VALVE, 2021-09-29 11:28:00 Adrienne [facility] TRANSCATHETER [facility] TRANSESOPHAGEAL ECHO 2021-09-29 10:44:47 Adrienne [facility] CONT WAVE PULSED DOPPLER 2021-09-29 10:23:[address] [facility] COLOR-FLOW MAPPING 2021-09-29 10:23:48 Lilian Deleon [facility] ABORH, MANUAL 2021-09-29 09:00:[address] [facility] CARDIAC CATH REPORT - SCAN 2021-09-29 00:00:00 Provider, Edis [facility] ELECTROCARDIOGRAM COMPLETE 2021-09-23 19:54:26 Lilian Deleon [facility] CBC W/PLT COUNT & AUTO 2021-09-23 15:11:00 Lilian [facility]leon [facility] DIFFERENTIAL [facility] COMPREHENSIVE METABOLIC 2021-09-23 15:11:00 Lilian Deleon [facility] PANEL [facility] B-TYPE NATRIURETIC FACTOR 2021-09-23 15:11:00 Lilian Deleon [facility] (BNP) [facility] PROTHROMBIN TIME/INR 2021-09-23 15:11:[address] [facility] TYPE AND SCREEN, AUTOMATED 2021-09-23 15:11:00 Lilian Deleon [facility] CBC W/PLT COUNT & AUTO 2021-09-23 15:11:00 Lilian Deleon [facility] DIFFERENTIAL [facility] ELECTROCARDIOGRAM COMPLETE 2021-09-23 14:54:26 Yvan [facility] ([facility]) HEART CATH 2021-09-23 09:58:37 [facility] ([facility]) LAB 2021-09-23 09:58:37 [facility] ([facility], [facility]) DIAG \\T\\ IMAGING 2021-09-23 09:58:37 [facility] ([facility]) EKG 2021-09-23 09:58:37 [facility] ([facility]) CT CHEST/CARDIAC 2021-09-23 09:58:37 [facility] ([facility]) US/DOPPLER HEAD/NECK 2021-09-23 09:58:37 B [facility] Plan of Care Planned Activity Planned Date Details Comments Source Future Scheduled 2023-02-[address] [facility] Test 00:00:00 [...] Cessation Counseling and Screening (12+)] Future Scheduled 2022-03-29 Screening for malignant [facility] Test 07:21:24 neoplasm of colon Medicine (procedure) [code = 838038645] Future Scheduled 2022-03-29 Pneumococcal 65+ (1 - Ba [facility] Test 07:21:24 PCV) [code = Medicine Pneumococcal 65+ (1 - PCV)] Future Scheduled 2022-03-29 TETANUS SHOT (ADULT) [facility] Test 07:21:24 [code = TETANUS SHOT Medicin e (ADULT)] Future Scheduled 2022-03-29 Diabetic foot [facility] of Test 07:21:24 examination Medicine (regime/therapy) [code = 622892031] Future Scheduled 2022-03-29 Annual Diabetic [facility] of Test 07:21:24 Retinopathy Screening Medici ne [code = Annual Diabetic Retinopathy Screening] Future Scheduled 2022-03-29 BMI Follow Up Plan [facility] Test 07:21:24 [code = BMI Follow Up Medici ne Plan] Future Scheduled 2022-03-29 ZOSTER VACCINE (1 of 2) [facility] Test 07:21:24 [code = ZOSTER VACCINE Medic ine (1 of 2)] Future Scheduled 2022-03-29 Fall Screen [code = [facility] of Test 07:21:24 Fall Screen] Medicine Future Scheduled 2022-03-29 COVID-19 Vaccine (4 - Ba [facility] Test 07:21:24 Booster for Moderna Medicine series) [code = COVID-19 Vaccine (4 - Booster for Moderna series)] Future Scheduled 2022-03-29 FLU VACCINE > 6 MONTHS B [facility] Test 07:21:24 [code = FLU VACCINE > 6 Medi cine MONTHS] Future Scheduled 2022-03-29 Medicare Awv (Initial) [facility] Test 07:21:24 [code = Medicare Awv Medicin e (Initial)] Future Scheduled 2022-02-[address] [facility] Test 00:00:00 (12+) [code = Medical Center DEPRESSION SCREENING (12+)] Future Scheduled 2022-02-27 FALLS RISK SCREENING [facility] Test 00:00:00 [code = FALLS RISK Medical C enter SCREENING] Future Scheduled 2022-02-07 Screening for malignant [facility] of Test 19:20:09 neoplasm of colon Medicine (procedure) [code = 624726338] Future Scheduled 2022-02-07 Pneumococcal 65+ (1 - Ba [facility] of Test 19:20:09 PCV) [code = Medicine Pneumococcal 65+ (1 - PCV)] Future Scheduled 2022-02-07 TETANUS SHOT (ADULT) [facility] of Test 19:20:09 [code = TETANUS SHOT Medicin e (ADULT)] Future Scheduled 2022-02-07 Diabetic foot [facility] Test 19:20:09 examination Medicine (regime/therapy) [code = 810532282] Future Scheduled 2022-02-07 ANNUAL DIABETIC [facility] of Test 19:20:09 RETINOPATHY SCREENING Medici ne [code = ANNUAL DIABETIC RETINOPATHY SCREENING] Future Scheduled 2022-02-07 BMI FOLLOW UP PLAN [facility] of Test 19:20:09 [code = BMI FOLLOW UP Medici ne PLAN] Future Scheduled 2022-02-07 Hepatitis C screening [facility] of Test 19:20:09 (procedure) [code = Medicine 333445498] Future Scheduled 2022-02-07 ZOSTER VACCINE (1 of 2) [facility] of Test 19:20:09 [code = ZOSTER VACCINE Medic ine (1 of 2)] Future Scheduled 2022-02-07 FALL SCREEN [code = [facility] of Test 19:20:09 FALL SCREEN] Medicine Future Scheduled 2022-02-07 COVID-19 Vaccine (4 - Ba [facility] of Test 19:20:09 Booster for Moderna Medicine series) [code = COVID-19 Vaccine (4 - Booster for Moderna series)] Future Scheduled 2022-02-07 FLU VACCINE > 6 MONTHS B [facility] Test 19:20:09 [code = FLU VACCINE > 6 Medi cine MONTHS] Future Scheduled 2022-02-07 MEDICARE AWV (Initial) [facility] Test 19:20:09 [code = MEDICARE AWV Medicin e (Initial)] Future Scheduled 2021-11-11 Screening for malignant [facility] of Test 15:50:24 neoplasm of colon Medicine (procedure) [code = 071612057] Future Scheduled 2021-11-11 COVID-19 Vaccine (#1) Ba [facility] of Test 15:50:24 [code = COVID-19 Medicine Vaccine (#1)] Future Scheduled 2021-11-11 Pneumococcal 65+ (1 - Ba [facility] of Test 15:50:24 PCV) [code = Medicine Pneumococcal 65+ (1 - PCV)] Future Scheduled 2021-11-11 TETANUS SHOT (ADULT) [facility] Test 15:50:24 [code = TETANUS SHOT Medicin e (ADULT)] Future Scheduled 2021-11-11 Diabetic foot [facility] Test 15:50:24 examination Medicine (regime/therapy) [code = 271734981] Future Scheduled 2021-11-11 ANNUAL DIABETIC [facility] Test 15:50:24 RETINOPATHY SCREENING Medici ne [code = ANNUAL DIABETIC RETINOPATHY SCREENING] Future Scheduled 2021-11-11 BMI FOLLOW UP PLAN [facility] of Test 15:50:24 [code = BMI FOLLOW UP Medici ne PLAN] Future Scheduled 2021-11-11 Hepatitis C screening [facility] of Test 15:50:24 (procedure) [code = Medicine 335621189] Future Scheduled 2021-11-11 ZOSTER VACCINE (1 of 2) [facility] Test 15:50:24 [code = ZOSTER VACCINE Medic ine (1 of 2)] Future Scheduled 2021-11-11 MEDICARE AWV (Initial) [facility] Test 15:50:24 [code = MEDICARE AWV Medicin e (Initial)] Future Scheduled 2021-11-11 FALL SCREEN [code = [facility] of Test 15:50:24 FALL SCREEN] Medicine Future Scheduled 2021-11-11 FLU VACCINE > 6 MONTHS B [facility] Test 15:50:24 [code = FLU VACCINE [...] [facility] 00[facility]00 measurement (procedure) [facility] [code = 23083724] Future Scheduled 2021-09-[address] [facility] Test 00:00:00 measurement (procedure) [facility] [code = 68086041] Future Scheduled 2021-09-[address] [facility] Test 00:00:00 measurement (procedure) [facility] [code = 40117289] Future Scheduled 2021-09-[address] [facility] Test 00:00:00 measurement (procedure) [facility] [code = 69395420] Future Scheduled 2021-09-23 Screening for malignant [facility] Test 17:50:20 neoplasm of colon Medicine (procedure) [code = 997463567] Future Scheduled 2021-09-23 Pneumococcal 65+ (1 - Ba [facility] Test 17:50:20 PCV) [code = Medicine Pneumococcal 65+ (1 - PCV)] Future Scheduled 2021-09-23 TETANUS SHOT (ADULT) [facility] Test 17:50:20 [code = TETANUS SHOT Medicin e (ADULT)] Future Scheduled 2021-09-23 Diabetic foot [facility] Test 17:50:20 examination Medicine (regime/therapy) [code = 342536318] Future Scheduled 2021-09-23 ANNUAL DIABETIC [facility] Test 17:50:20 RETINOPATHY SCREENING Medici ne [code = ANNUAL DIABETIC RETINOPATHY SCREENING] Future Scheduled 2021-09-23 BMI FOLLOW UP PLAN [facility] Test 17:50:20 [code = BMI FOLLOW UP Medici ne PLAN] Future Scheduled 2021-09-23 Hepatitis C screening [facility] Test 17:50:20 (procedure) [code = Medicine 056125435] Future Scheduled 2021-09-23 ZOSTER VACCINE (1 of 2) [facility] Test 17:50:20 [code = ZOSTER VACCINE Medic ine (1 of 2)] Future Scheduled 2021-09-23 FALL SCREEN [code = [facility] Test 17:50:20 FALL SCREEN] Medicine Future Scheduled 2021-09-23 COVID-19 Vaccine (4 - Ba [facility] Test 17:50:20 Booster for Moderna Medicine series) [code = COVID-19 Vaccine (4 - Booster for Moderna series)] Future Scheduled 2021-09-23 FLU VACCINE > 6 MONTHS B [facility] Test 17:50:20 [code = FLU VACCINE > 6 Medi cine MONTHS] Future Scheduled 2021-09-23 MEDICARE AWV (Initial) B [facility] Test 17:50:20 [code = MEDICARE AWV [...] screening Medical C enter (procedure) [code = 138558265] Future Scheduled 2012-02-[address] [facility] Test 00:00:00 aneurysm screening Medical C enter (procedure) [code = 214883480] Future Scheduled 2012-02-[address] [facility] Test 00:00:00 aneurysm screening Medical C enter (procedure) [code = 990565196] Future Scheduled 1997 SHINGLES VACCINES (1 of [...] 00:00:00 examination Medical Center (regime/therapy) [code = 930234944] Future Scheduled 1957 Urine screening for [facility] Test 00:00:00 protein (procedure) Medical Center [code = 647362156] Future Scheduled 1957 DIABETIC EYE EXAM [code [facility] Test 00:00:00 = DIABETIC EYE EXAM] Medical Center Future Scheduled [address] [facility] 00:[facility]:00 examination Medical Center (regime/therapy) [code = 993047120] Future Scheduled 1957 Urine screening for [facility] Test 00:00:00 protein (procedure) Medical Center [code = 614089976] Future Scheduled 1957 DIABETIC EYE EXAM [code [facility] Test 00:00:00 = DIABETIC EYE EXAM] Medical Center Future Scheduled [address] [facility] Test 00:00:00 examination Medical Center (regime/therapy) [code = 107403823] Future Scheduled 1957 Urine screening for [facility] Test 00:00:00 protein (procedure) Medical Center [code = 052764511] Future Scheduled 1957 DIABETIC EYE EXAM [code [facility] Test 00:00:00 = DIABETIC EYE EXAM] Medical Center Future Scheduled [address] 00:00:00 examination Medical Center (regime/therapy) [code = 893005332] Future Scheduled 1957 Urine screening for [facility] Test 00:00:00 protein (procedure) Medical Center [code = 623738311] Future Scheduled 1953 PNEUMOCOCCAL 65+ YRS ([address] [facility] Test 00:00:00 - PCV) [code = Medical Cente r PNEUMOCOCCAL 65+ YRS (1 - PCV)] Future Scheduled 1947 COVID-19 VACCINE (#1) [facility] Test 00:00:00 [code = COVID-[address] VACCINE (#1)] Future Scheduled [address] CT Colonography (combo) [facility] Test 00:00:00 [code = CT Colonography [facility] (combo)] Future Scheduled 1947 Screening for malignant [facility] Test 00:00:00 neoplasm of colon Medical Ce nter (procedure) [code = 868448463] Future Scheduled 1947 Screening for malignant [facility] Test 00:00:00 neoplasm of colon Medical Ce nter (procedure) [code = 641436043] Future Scheduled 1947 Screening for malignant [facility] Test 00:00:00 neoplasm of colon Medical Ce nter (procedure) [code = 149741339] Future Scheduled 1947 Screening for malignant [facility] Test 00:00:00 neoplasm of colon Medical Ce nter (procedure) [code = 488946305] Future Scheduled 1947 Sigmoidoscopy [code = [facility] S[facility]oscopy] Medical Cente r Future Scheduled 1947 CT Colonography (combo) [facility] Test 00:00:00 [code = CT Colonography Medi carey Center (combo)] Future Scheduled 1947 Screening for malignant [facility] Test 00:00:00 neoplasm of colon Medical Ce nter (procedure) [code = 655117681] Future Scheduled 1947 Screening for malignant [facility] Test 00:00:00 neoplasm of colon Medical Ce nter (procedure) [code = 861985809] Future Scheduled 1947 Screening for malignant [facility] Test 00:00:00 neoplasm of colon Medical Ce nter (procedure) [code = 061246404] Future Scheduled 1947 Screening for malignant [facility] Test 00:00:00 neoplasm of colon Medical Ce nter (procedure) [code = 231605825] Future Scheduled 1947 Sigmoidoscopy [code = [facility] 00:[facility] Sigmoidoscopy] Medical Cente r Future Scheduled 1947 CT Colonography (combo) [facility] Test 00:00:00 [code = CT Colonography Medi carey Center (combo)] Future Scheduled 1947 Screening for malignant [facility] Test 00:00:00 neoplasm of colon Medical Ce nter (procedure) [code = 619533026] Future Scheduled 1947 Screening for malignant [facility] Test 00:00:00 neoplasm of colon Medical Ce nter (procedure) [code = 089474773] Future Scheduled 1947 Screening for malignant [facility] Test 00:00:00 neoplasm of colon Medical Ce nter (procedure) [code = 003310724] Future Scheduled 1947 Screening for malignant [facility] Test 00:00:00 neoplasm of colon Medical Ce nter (procedure) [code = 823715827] Future Scheduled 1947 Sigmoidoscopy [code = [facility] 00:00:[facility] Sigmoidoscopy] Medical Cente r Future Scheduled 1947 CT Colonography (combo) [facility] Test 00:00:00 [code = CT Colonography Medi carey Center (combo)] Future Scheduled 1947 Screening for malignant [facility] Test 00:00:00 neoplasm of colon Medical Ce nter (procedure) [code = 000312732] Future Scheduled 1947 Screening for malignant [facility] Test 00:00:00 neoplasm of colon Medical Ce nter (procedure) [code = 961919106] Future Scheduled 1947 Screening for malignant [facility] Test 00:00:00 neoplasm of colon Medical Ce nter (procedure) [code = 101283316] Future Scheduled 1947 Screening for malignant [facility] Test 00:00:00 neoplasm of colon Medical Ce nter (procedure) [code = 528323232] Future Scheduled 1947 Sigmoidoscopy [code = [facility] 00:[facility] S[facility]oscopy] Medical Cente r Encounters Start End Encounter Admission Attending Care Care Encounter Source Date/Time Date/Time Type Type Clinicians Facility Department ID 2022-04-04 Outpatient Diaz, STLMLC STLC [id number] Common 09:02:01 Yann [id number] [facility] 2022-03-31 Outpatient Diaz, STLMLC STLC [id number] Common 11:10:01 Yann [id number] [facility] 2022-03-11 Outpatient Diaz, STLMLC STLC [id number] Common 16:26:00 Yann [id number] [facility] 2022-02-17 Outpatient Diaz, STLMLC STLC [id number] Common 10:29:01 Yann 89119 [facility] 2022-01-18 Outpatient Diaz, STLMLC STLC [id number] Common 08:51:01 Yann [id number] [facility] 2021-12-31 Outpatient Diaz, STLMLC STLMLC [id number] Common 10:27:01 Yann 70344 [facility] 2021-05-17 Outpatient Diaz, STLMLC STLC [id number] Common 09:00:01 Yann [facility] 2021-05-14 Outpatient Diaz, STLMLC STLC [id number] Common 10:41:02 Yann [facility] 2021-03-24 Outpatient Diaz, STLMLC STLMLC [id number] Common 14:26:44 Yann [id number] [facility] 2021-03-24 Outpatient Diaz, STLMLC STLMLC [id number] Common 13:19:52 Yann 17449 [facility] 2021-03-24 Outpatient Diaz, STLMLC STLMLC [id number] Common 13:09:16 Yann [id number] [facility] 2021-03-24 Outpatient Diaz, STLMLC STLMLC [id number] Common 12:43:25 Yann 08191 [facility] 2021-03-24 Outpatient Diaz, STLMLC STLMLC [id number] Common 12:42:35 Yann [id number] [facility] 2021-03-24 Outpatient Diaz, STLMLC STLMLC [id number] Common 12:42:21 Yann 14000 [facility] 2021-03-24 Outpatient Diaz, STLMLC STLMLC [id number] Common 11:17:23 Yann [id number] [facility] 2021-03-24 Outpatient Diaz, STLMLC STLMLC [id number] Common 11:15:43 Yann 34916 [facility] 2021-03-24 Outpatient Diaz, STLMLC STLMLC [id number] Common 11:15:21 Yann [id number] [facility] 2021-03-24 Outpatient Diaz, STLMLC STLMLC [id number] Common 11:00:50 Yann [id number] [facility] 2022-06-15 2022-06-15 Outpatient MHIE MHIE [id number] [facility] 10:00:00 10:00:00 07 david Dawkins 2022-06-15 2022-06-15 Outpatient MHIE MHIE [id number] [facility] 10:00:00 10:00:00 07 david Dawkins 2022-04-06 2022-04-06 OFFICE STLMLC STLC [id number] Co mmon 00:00:00 00:00:00 VISIT [facility] PT [facility] LEVEL 4 [facility] 2022-03-28 2022-03-29 Office TAYLOR DELEON [id number] [facility] 13:34:12 08:27:52 Visit LILIAN AMBULATOR [id number] College Y [id number] of [id number] Medi darrin 300 e 2022-03-28 2022-03-28 Outpatient BCM [facility] [id number] [facility] 13:32:41 15:16:09 Colleg e [facility] Medicin e 2022-03-16 2022-03-16 (TEL) [facility] [id number] Co mmon 00:00:00 00:00:00 [facility] 2022-03-03 2022-03-03 (TEL) STLC STLC [id number] Co mmon 00:00:00 00:00:00 [facility] 2022-03-01 2022-03-01 (TEL) [facility] ST[facility] [id number] Co mmon 00:00:00 00:00:00 [facility] 2022-02-18 2022-02-26 [facility] [id number] [address] 00[facility]32[facility] 10:10:00 Encounter [facility] 2022-02-18 2022-02-26 Inpatient ER JERSON ROACH Internal [id number] [facility] 00:32:00 [facility]10[facility] 2022-02-23 Outpatient [facility] [id number] [facility] 00:00:00 23:59:00 [facility] 2022 2022 Anesthesia Leigh Mejia [facility] [id number] 13:59:00 14:24:00 Event Prashant Rayo [facility] 2022 2022 Surgery Shakila [facility] [id number] 13:18:00 14:08:00 [facility] 2022 2022 [id number] 00:00:00 [facility] 2022-02-18 2022-02-18 Outpatient [facility] [id number] [facility] 00:32:00 23:59:00 [facility] 2022-02-17 2022-02-17 [facility]ICE [facility] [id number] Co mmon 00:00:00 00:00:00 VISIT EST Spir it PT LEVEL 3 - [facility] 2022-02-17 2022-02-17 (TEL) [facility] [id number] Co mmon 00:00:00 00:00:00 [facility] 2022-02-16 2022-02-16 (TEL) [facility] [id number] Co mmon 00:00:00 00:00:00 [facility] 2022-02-07 2022-02-10 Office ADRIENNE, [facility] [id number] [facility] 14:10:38 19:54:53 Visit LILIAN AMB[facility]ATOR [id number] College Y [id number] of [id number] Medi darrin 300 e 2022-02-07 2022-02-07 [facility] [id number] [facility] 14:12:11 16:19:18 [facility] 2022-02-03 2022-02-03 (TEL) [facility] [id number] Co mmon 00:00:00 00:00:00 [facility] 2022-02-01 2022-02-01 (TEL) ST[facility] STLC [id number] Co mmon 00:00:00 00:00:00 [facility] [facility] 2022-01-19 2022-01-19 (HOSP F/U) STLMLC STLMLC [id number] Common 00:00:00 00:00:00 Hospital Spiri t Follow Up - [facility] 2022-01-17 2022-01-17 (TEL) [facility] [id number] Co mmon 00:00:00 00:00:00 Spirit - [facility] 2022-01-10 2022-01-10 (TEL) [facility] [id number] Co mmon 00:00:00 00:00:00 Spirit - [facility] 2022-01-04 2022-01-04 OFFICE [facility] [id number] Co mmon 00:00:00 00:00:00 VISIT Spirit ESTAB PT - CHI LEVEL 4 [facility] 2021-11-11 2021-11-11 Office OPALTAYLOR OG [id number] [facility] 12:31:35 15:46:52 Visit LILIAN AMBULATOR 350.1.13.21 College Y 0.2.7.2.686 of [id number] Medi darrin 300 e 2021-11-11 2021-11-11 Outpatient BCM [facility] [id number] [facility] 14:33:38 15:42:54 [facility]in e 2021-11-11 2021-11-11 Outpatient BCM [facility] [id number] [facility] 12:31:21 15:01:28 [facility] 2021-11-04 2021-11-04 [facility] [id number] Co mmon 00:00:00 00:00:00 VISIT Spirit ESTAB PT - CHI LEVEL 4 [facility] 2021-11-04 2021-11-04 SUB [facility] [id number] Common 00:00:00 00:00:00 [facility] Spirit WELLNESS - CHI VISIT [facility] 2021-10-26 2021-10-26 Telephone Antonino [facility] [id number] 00:00[facility]00 00:00:00 [facility] 2021-10-26 2021-10-26 Telephone Antonino [facility] [id number] 00:[facility]00 00:00:00 [facility] 2021-10-11 2021-10-11 Capri Rivera [facility] [id number] 00:[facility]00 00[facility]00 [facility] Diya [facility] 2021-10-11 2021-10-11 Documentat Miguel [facility] [id number] 00:00[facility]00 00:00:00 [facility] 2021-10-04 2021-10-04 (HOSP F/U) [facility] [id number] Common 00:00:00 00:00:00 [facility] Follow Up - [facility] 2021-10-01 2021-10-01 Outpatient BCM BC [id number] [facility] 10:35:39 11:01:49 [facility] 2021-10-01 2021-10-01 (TEL) [facility] [id number] Co mmon 00:00:00 00:00:00 Spirit - [facility] 2021-09-30 2021-09-30 Outpatient BCM BC [id number] [facility] 00:00:00 23:59:00 [facility] 2021-09-29 2021-09-30 Inpatient [facility] Surgery [id number] [facility] 08:04:00 13:30:00 [facility] 2021-09-29 2021-09-30 [facility] [id number] 08:04:00 13:30:00 Encounter [facility] 2021-09-29 2021-09-30 [facility] [id number] 08:04:00 13:30:00 Encounter [facility] 2021-09-29 2021-09-29 Outpatient BC BC [id number] [facility] 08:04:00 23:59:00 [facility] 2021-09-29 2021-09-29 [facility] [id number] 12:28:00 16:43:00 [facility] 2021-09-29 2021-09-29 [facility] [id number] 12:28:00 16:43:00 Lilian Olu [facility] 2021-09-29 2021-09-29 Anesthesia Ally, [facility] [id number] 11:41:00 15:31:00 Event [facility] 2021-09-29 2021-09-29 Anesthesia Ally, [facility] [id number] 11:41:00 15:31:00 [facility] 2021-09-29 2021-09-29 Travel [facility] [id number] [facility]00 00:00:00 [facility] 2021-09-29 2021-09-29 Travel [facility] [id number] [facility] 00:[facility]00 00:00:00 [facility] 2021-09-23 2021-09-24 Outpatient [facility] [id number] [facility] 16:04:57 08:01:49 [facility] 2021-09-23 2021-09-23 Office Maria D, [facility] [id number] 15:00:00 15:30:00 Visit [facility] 2021-09-23 2021-09-23 Office MAGGIE Killian [facility] [id number] 15:00:00 15:30:00 Visit [facility] 2021-09-23 2021-09-23 Outpatient MAGGIE KILLIAN [facility] [id number] SLE 15:05:44 15:05:44 KARTIK 2021-09-23 2021-09-23 Office TAYLOR DELEON [id number] [facility] 09:58:37 14:43:11 Visit LILIAN AMBULATOR 350.1.13.21 College Y 0.2.7.2.686 of [id number] Medi darrin 300 e 2021-09-23 2021-09-23 Outpatient [facility] [id number] [facility] 09:58:28 14:42:29 [facility] 2021-09-23 2021-09-23 Outpatient BCM BCM [id number] [facility] 09:53:54 13:13:16 Lilly Mediczheng e 2021-09-23 2021-09-23 Orders Cisneros [facility] [id number] 00:00:00 00:00:00 Only [facility] 2021-09-23 2021-09-23 Orders Blayne [facility] [id number] 00:00:00 00:00:00 Only [facility] 2021-08-31 2021-08-31 OFFICE [facility] ST[facility] [id number] Co mmon 00:00:00 00:00:00 VISIT Ronak MCALLISTER PT - ALTAGRACIA LEVEL 4 [facility] 2021-08-24 2021-08-24 Outpatient LUIS Victor [facility] [id number] [facility] 09:27:00 09:27:00 Neetu [id number] [facility] 2021-08-24 2021-08-24 Outpatient IMELDA VictorCL [facility] [id number] [facility] 09:27:00 09:27:00 Olclotilde 01 [facility] 2021-08-16 2021-08-16 (TEL) STLMLC STLMLC [id number] Co mmon 00:00:00 00:00:00 Ronak [facility] 2021-06-15 2021-06-16 Outpatient nullFlavo MNA [id number] [facility] 15:30:00 04:59:59 r Neurology 06 david Dawkins 2021-06-15 2021-06-16 Outpatient nullFlavo MNA [id number] [facility] 15:30:00 04:59:59 r Neurology 06 david Dawkins 2021-06-15 2021-06-15 Outpatient BROWN ParedesMISCHSUMAYA [id number] 10:30:00 23:59:59 Sam Collins 2021-06-15 2021-06-15 Outpatient MHIE MEHULIE [id number] [facility] 10:30:00 10:30:00 Isabela Dawkins 2021-05-172021-05-17 OFFICE STLMLC STLMLC [id number] Co mmon 00:00:00 00:00:00 VISIT Spirit ESTAB PT - CHI LEVEL 4 [facility] 2021-02-16 2021-02-16 OFFICE STLMLC STLMLC [id number] Co mmon 00:00:00 00:00:00 VISIT Spirit ESTAB PT - CHI LEVEL 4 [facility] 2020-12-15 2020-12-15 (TEL) STLMLC STLMLC [id number] Co mmon 00:00:00 00:00:00 Spirit - [facility] 2020-11-24 2020-11-24 OFFICE STLMLC STLMLC [id number] Co mmon 00:00:00 00:00:00 VISIT Spirit ESTAB PT - CHI LEVEL 4 [facility] 2020-11-24 2020-11-24 SUB ANNUAL STLMLC STLMLC [id number] Common 00:00:00 00:00:00 MCR [facility] WELLNESS - CHI VISIT [facility] 2020-10-27 2020-10-27 Outpatient STLMLC STLMLC [id number] Common 00:00:00 00:00:00 [facility] 2020-09-23 2020-09-23 Outpatient STLMLC STLMLC [id number] Common 00:00:00 00:00:00 [facility] 2020-09-17 2020-09-17 Outpatient STLMLC STLMLC [id number] Common 00:00:00 00:00:00 [facility] 2020-08-25 2020-08-25 Outpatient STLMLC STLMLC [id number] Common 00:00:00 00:00:00 [facility] 2020-06-24 2020-06-26 Outside nullFlavo MNA [id number] [facility] 13:59:45 04:59:59 Medical r Neurology 00 l Records Brooks Dawkins 2020-06-24 2020-06-26 Outside nullFlavo MNA [id number] [facility] 13:59:45 04:59:59 Medical r Neurology 00 l Records Brooks Deshpandeann 2020-06-24 2020-06-25 Outpatient MHMISCHER MHMISCHER [id number] 08:59:45 23:59:59 00 2020-06-12 2020-06-13 Outpatient nullFlavo MNA [id number] [facility] 15:30:00 04:59:59 r Neurology 05 david Dawkins 2020-06-12 2020-06-13 Outpatient nullFlavo MNA [id number] [facility] 15:30:00 04:59:59 r Neurology 05 l Brooks Dawkins 2020-06-12 2020-06-12 Outpatient ANGELICA ParedesSCHER MISCHER [id number] 10:30:00 23:59:59 Sam Hailee Collins 2020-06-12 2020-06-12 Ambulatory nullFlavo MNA [id number] [facility] 15:30:00 15:30:00 Pre-Reg r Neurology 04 l Brooks Dawkins 2020-06-12 2020-06-12 Ambulatory nullFlavo MNA [id number] [facility] 15:30:00 15:30:00 Pre-Reg r Neurology 04 l Brooks Dawkins 2020-06-12 2020-06-12 Outpatient MHIE MHIE [id number] [facility] 10:30:00 10:30:00 05 david Dawkins 2020-06-12 2020-06-12 Outpatient MHIE MHIE [id number] [facility] 10:30:00 10:30:00 04 david Dawkins 2020-06-12 2020-06-12 Outpatient ANGELICA ParedesSCHSUMAYA MISCHER [id number] 10:30:00 10:30:00 Sambhumi Collins 2020-05-18 2020-05-18 Outpatient STLMLC STLMLC [id number] Common 00:00:00 00:00:00 [facility] 2020-04-07 2020-04-07 Outpatient STLMLC STLMLC [id number] Common 00:00:00 00:00:00 [facility] 2020-02-18 2020-02-18 Outpatient STLMLC STLMLC [id number] Common 00:00:00 00:00:00 [facility] 2020-02-06 2020-02-06 Outpatient STLMLC STLMLC [id number] Common 00:00:00 00:00:00 [facility] 2019-11-20 2019-11-20 Outpatient STLMLC STLMLC [id number] Common 00:00:00 00:00:00 [facility] 2019-11-20 2019-11-20 Outpatient STLMLC STLMLC [id number] Common 00:00:00 00:00:00 [facility] 2019-11-20 2019-11-20 Outpatient STLMLC STLMLC [id number] Common 00:00:00 00:00:00 [facility] 2019-08-19 2019-08-19 Out[facility] [id number] Common 16:15:00 16:15:[address] [facility] 2019-08-16 2019-08-16 Outpatient [facility] [id number] Common 09:45:00 09:45:[address] [facility] 2019-08-09 2019-08-09 Outpatient [facility] [id number] Common 15:20:00 15:20:[address] [facility] 2019-06-14 2019-06-15 Outpatient nullFlavo MNA [id number] [facility] 15:45:00 04:59:59 r Neurology 03 l [place] 2019-06-14 2019-06-15 Outpatient nullFlavo MNA [id number] [facility] 15:45:00 04:59:59 r Neurology 03 l [place] 2019-06-14 2019-06-14 Outpatient MEHUL ParedesMISCHSUMAYA MHMISCHER [id number] 10:45:00 23:59:59 Sam 03 [place] 2019-06-14 2019-06-14 Outpatient MHIE MHIE [id number] [facility] 10:45:00 10:45:00 03 l [place] 2019-05-23 2019-05-23 Ambulatory nullFlavo MNA [id number] [facility] 14:00:00 14:00:00 Pre-Reg r Neurology 02 l [place] Daw[place] 2019-05-23 2019-05-23 Ambulatory nullFlavo MNA [id number] [facility] 14:00:00 14:00:00 Pre-Reg r Neurology 02 david [place] 2019-05-23 2019-05-23 Outpatient MHIE MHIE [id number] [facility] 09:00:00 09:00:00 02 david [place] 2019-05-23 2019-05-23 Outpatient ReggieMEHULMISCHER MISCHER [id number] 09:00:00 09:00:00 Sam Collins 2019-05-22 2019-05-22 Out[facility] [id number] Common 14:45:00 14:45:[address] [facility] 2019-05-13 2019-05-13 Outpatient [facility] [id number] Common 10:33:00 10:33:[address] [facility] 2019-05-02 2019-05-02 Outpatient [facility] [id number] Common 16:42:00 16:42:[address] [facility] 2019-04-29 2019-04-29 Outpatient [facility] [id number] Common 08:36:00 08:36:[address] [facility] 2019-04-24 2019-04-24 Outpatient [facility] [id number] Common 13:15:00 13:15:[address] [facility] 2019-04-23 2019-04-23 Outpatient [facility] [id number] Common 15:22:00 15:22:[address] [facility] 2019-03-13 2019-03-13 Outpatient [facility] [id number] Common 13:30:00 13:30:[address] [facility] 2018-05-17 2018-05-17 Outpatient MHIE MHIE [id number] Memoria 09:00:00 09:00:00 01 david Dawkins 2018-05-17 2018-05-17 Outpatient MHIE MHIE [id number] [facility]oria 09:00:00 09:00:00 01 david Dawkins 2017-05-18 2017-05-18 Outpatient DIMITRIS DIMITRIS [id number] [facility]oria 09:00:00 09:00:00 00 l [place] 2017-05-18 2017-05-18 [facility] [id number] [facility]oria 09:00:00 09:00:00 00 david [place] Results Test Description Test Time Test Comments Results Result Comments Source ANTI-MITOCHONDRIAL AB, REFLEX TO TITER 2022-03-04 10:46:02 Test Item Value Reference Range Interpretation Comme nts SCAN RESULT (test code = 5488291) PHOSPHATIDYLETHANOL, [id number] 15:28:13 Test Item Value Reference Range Interpretation Comments PHOSPHATIDYLETHANOL (PETH) See scanned (test code = 3916119) report See scanned reportPOC-Glucose [id number] 07:48:54 Test Item Value Reference Range Interpretation Comments POC-Glucose Meter (test 184 mg/dL 70-110 H : TE STED AT [facility] code = 1538) 67[address] [facility], 770 30: Quarrying Specialist/Techni edgar ID = [id number] for [place] ie Lab Interpretation (test Abnormal code = 04351-2) [facility] [id number] 07:48:54 Test Item Value Reference Range Interpretation Comments POC-GLUCOSE METER 184 mg/dL 70-110 H : TESTED A T [facility] 6720 (BEAKER) (test code [facility], = 1538) 59895: Quarrying Specialist/Techni edgar ID = [id number] for Maribeth Shultz [id number] 05:28:46 Test Item Value Reference Range Interpretation Comments MAGNESIUM (BEAKER) (test code = 1.4 mg/dL 1.6-2.6 L 627) Quarrying Specialist ID - PIAYA LPOCT-GLUCOSE [id number] 00:12:17 Test Item Value Reference Range Interpretation Comments POC-GLUCOSE METER 197 mg/dL 70-110 H : [facility] (BEAKER) (test code = BERTNE R [facility], 1538) 18280: Quarrying Specialist/Techni edgar ID = [id number] for CLARISSA PFEIFFER POCT-GLUCOSE [id number] 21:47:16 Test Item Value Reference Range Interpretation Comments POC-GLUCOSE METER 207 mg/dL 70-110 H : TESTED A T [facility] 6720 (BEAKER) (test code = MARGO White [facility], 1538) 76341: Quarrying Specialist/Techni edgar ID = [id number] for SANDEEP LOTT POCT-GLUCOSE [id number] 17:30:32 Test Item Value Reference Range Interpretation Comments POC-GLUCOSE METER 222 mg/dL 70-110 H : TESTED A T [facility] 6720 ([employer]) (test code CATHY [facility], = 1538) 83820: Quarrying Specialist/Techni edgar ID = [id number] for Maribeth Shultz PET/CT, WHOLE BODY [id number] 14:25:00Unlisted Reason for Exam - Click Yes and Enter Reason Below->YesUnlisted Reason for Exam->bacteremia - no known [facility] FLAHERTY : 1945 Sex: MFINAL REPORT PROCEDURE: FDG PET/CT for Inflammation/Infection CPT CODE: 97159 HISTORY: Intermittent bacteremia, fever INDICATION: FDG PET/CT was obtained to assess possible etiology of bacteremia. COMPARISON: No prior PET/CT. Abdominal CT of 02/21/2022. PROTOCOL: 11.9 mCi of F-18 fluorodeoxyglucose (FDG) was injected intravenously via the right arm. Serum glucose was 211 mg/dL prior to injection. Images were begun 64 minutes after injection and included the vertex of the skull to thefeet. Limited low-dose CT images were also obtained for attenuation correction and anatomic correlation of PET scan abnormalities. FINDINGS: Head and Neck: Images of the head and neck were suboptimal due to patient motion. No abnormal FDG activity within the visualized brain, orbits, paranasal sinuses, or pharyngeal soft tissues. No FDG-avid cervical lymph nodes. Chest: Small left pleural effusion with no appreciable tracer accumulation. No FDG-avid pulmonary nodules or airspace opacities. No FDG-avid mediastinal, hilar, or axillary lymph nodes. Abdomen/Pelvis: Image quality is degraded by artifactand body habitus. Uptake in the liver is heterogeneous but there is no focal hypermetabolism is identified. No abnormal FDG activity within the spleen, pancreas, kidneys, right adrenal and bowel. Thereis fullness of the left adrenal gland with SUV 3.1 maximum. No FDG-avid mesenteric or retroperitoneal lymph nodes. No abnormal FDG activity within the pelvis. No FDG-avid pelvic or inguinal lymph nodes. 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 No focal FDG-avid skeletal lesions. There is diffuse mild increase in activity in the soft tissues of the left lower leg. IMPRESSION:1. Image quality is suboptimal as described above.2. No specific etiology of bacteremia is identified.3. Small left pleural effusion, likely reactive.4. Left adrenal lesion is consistent with benign etiology.5. Softtissue increase in the left lower leg may be due to venous insufficiency or cellulitis, but this diff erentiation is better made clinically then by PET imaging. Signed: Juvenal Shine [facility] Verified Date/Time: 02/25/2022 14:25:36 POCT-GLUCOSE [id number] 11:34:37 Test Item Value Reference Range Interpretation Comments POC-GLUCOSE METER 211 mg/dL 70-110 H : TESTED A T [facility] 6720 (BEAKER) (test code = [facility] Cindy [facility], 1538) 47458: Quarrying Specialist/Techni edgar ID = [id number] for Brigido gutierrez [facility] BASIC METABOLIC [id number] 10:56:15 Test Item Value Reference Range Interpretation Comments SODIUM (BEAKER) 143 meq/L 136-145 (test code = 381) POTASSIUM 3.8 meq/L 3.5-5.1 (BEAKER) (test code = 379) CHLORIDE (BEAKER) 106 meq/L 98-107 (test code = 382) CO2 (BEAKER) 26 meq/L 22-29 (test code = 355) BLOOD UREA 17 mg/dL 7-21 NITROGEN (BEAKER) (test code = 354) CREATININE 1.30 mg/dL 0.57-1.25 H (BEAKER) (test code = 358) GLUCOSE RANDOM 206 mg/dL 70-105 H (BEAKER) (test code = 652) CALCIUM (BEAKER) 8.7 mg/dL 8.4-10.2 (test code = 697) EGFR (BEAKER) 58 Interpretatio n of eGFR (test code = mL/min/1.73 values Stage De scription 1092) sq m Result G1 Jayne l or high >=90 G2 Mildly decreased 60-89 G3a Mildl y to moderately 45-5 9 G3b Moderately to s everely 30-44 G4 Sever ly decreased 15-29 G5 Kidney failure <15Repo rted eGFR is based on the CKD-EPI 2020 equation t hat does not use a race coefficientEsti mated GFR is not as accur ate as Creatinine Montserrat demetrius in predicting glom erular filtration rate . Estimated GFR is not appl icable for dialysis patien ts Quarrying Specialist ID - RUBENBALWINDERRS-CoV2/RT-PCR (Asymptomatic ONLY)2022-02-25 08:55:41 Test Item Value Reference Interpretation Comments Range SARS-COV2/RT-PCR Negative Negative The SARS-Co V-2 (test code = target nucleic 73522-6) acids are not detected in thi s specimen. Negat adenike results do not preclude SARS-C oV-2 infection and should not be u sed as the sole bas is for patient management decisions. Nega tive results must be combined with clinical observations, patient history , and epidemiolog ical information. A false negative result may occu r if a specimen is improperly collected, transported or handled. This S ARS CoV-2 test is a rapid, real-alena e RT-PCR test intended for th e qualitative detection of nucleic acid fr om SARS-CoV-2 in a nasopharyngeal swab specimen collec deepali from individual s suspected of COVID-19 by the ir healthcare provider. SAMPSON (test code = This test has been SAMPSON) authorized by FDA under an EUA for use by authorized laboratories. This test is only authorized for the duration of the declaration that circumstances exist justifying the authorization of emergency use of in vitro diagnostic tests for detection and/or diagnosis of COVID-19 under Section 564(b)(1) of the Federal Food, Drug and Cosmetic Act, 21 U.S.C. 360bbb-3(b)(1), unless the authorization is terminated or revoked sooner. Fact Sheet for Healthcare Providers: https://www.Jetaport/Documents/Xp ert%20Xpress%20SAR S%20CoV-2/Fact%20S heets/302-3802%20S ARS-COV-2%20HEALTH CARE%20PROVIDERS%2 0FACT%20SHEET.pdf Fact Sheet for Healthcare Patients: https://www.[employer]ap[employer]/Documents/Xp ert%20Xpress%20SAR S%20CoV-2/Fact%20S heets/302-3801%20S ARS-COV-2%20PATIEN T%20FACT%20SHEET.p df Lab Interpretation Normal (test code = 38298-8) [facility])2022-02-25 08:55:41 Test Item Value Reference Range Interpretation Comments SARS-COV2/RT-PCR Negative Negative The SARS-Co V-2 target (test code = nucleic acids a re not [id number]) detected in thi s specimen. Negative result s do not preclude SARS-C oV-2 infection and s hould not be used as the chi e basis for patient managem ent decisions. Nega tive results must be combine d with clinical observ ations, patient history , and epidemiological information. A false negativ e result may occur if a spec imen is improperly yessica ected, transported or handled. This SARS CoV-2 test is a rapid, real-time RT-PC R test intended for th e qualitative detection of nu cleic acid from SARS-CoV-2 in a nasopharyngeal swab specimen collected from individuals suspected of CO VID-19 by their healthcar e provider. This test has been authorized by FDA under an EUA for use by authorized laboratories. This test is only authorized for the duration of the declaration that circumstances exist justifying the authorization of emergency use of in vitro diagnostic tests for detection and/or diagnosis of COVID-19 under Section 564(b)(1) of the Federal Food, Drug and Cosmetic Act, 21 U.S.C. 360bbb-3(b)(1), unless the authorization is terminated or revoked sooner. Fact Sheet for Healthcare Providers: https://www.Aptible m/Documents/Xpert%20Xpress%20SARS%20CoV-2/Fact%20Sheets/302-3802%77JNXA-WLD-6%20 HEALTHCARE%20PROVIDERS%20FACT%20SHEET.pdf Fact Sheet for Healthcare Patients: https://www.[employer]/Documents/Xpert%20Xp ress%20SARS%20CoV-2/Fact%20Sheets/302-3801%18KNBP-GVI-3%20PATIENT%20FACT%20SHEET .pdfPOCT-GLUCOSE [id number] 08:14:16 Test Item Value Reference Range Interpretation Comments POC-GLUCOSE METER 192 mg/dL 70-110 H : TESTED A T [facility] 6720 (BEAKER) (test [facility], = 1538) 65504: Quarrying Specialist/Techni edgar ID = [id number] for Maribeth Shultz BASIC METABOLIC [id number] 05:58:38 Test Item Value Reference Range Interpretation Comments SODIUM (BEAKER) 149 meq/L 136-145 H (test code = 381) POTASSIUM 3.2 meq/L 3.5-5.1 L (BEAKER) (test code = 379) CHLORIDE (BEAKER) 109 meq/L 98-107 H (test code = 382) CO2 (BEAKER) 26 meq/L 22-29 (test code = 355) BLOOD UREA 18 mg/dL 7-21 NITROGEN (BEAKER) (test code = 354) CREATININE 1.23 mg/dL 0.57-1.25 (BEAKER) (test code = 358) GLUCOSE RANDOM 175 mg/dL 70-105 H (BEAKER) (test code = 652) CALCIUM (BEAKER) 8.0 mg/dL 8.4-10.2 L (test code = 697) EGFR (BEAKER) 62 Interpretatio n of eGFR (test code = [...] not appl icable for dialysis patien ts Quarrying Specialist ID - MARCOCBC W/PLT COUNT & AUTO [id number] 05:11:55 Test Item Value Reference Range Interpretation Comments WHITE BLOOD CELL COUNT (BEAKER) 3.7 K/ L 3.5-10.5 (test code = 775) RED BLOOD CELL COUNT (BEAKER) 2.45 M/ L 4.63-6.08 L (test code = 761) HEMOGLOBIN (BEAKER) (test code = 7.3 GM/DL 13.7-17.5 L 410) HEMATOCRIT (BEAKER) (test code = 21.9 % 40.1-51.0 L 411) MEAN CORPUSCULAR VOLUME (BEAKER) 89 fL 79-92 (test code = 753) MEAN CORPUSCULAR HEMOGLOBIN 29.8 pg 25.7-32.2 (BEAKER) (test code = 751) MEAN CORPUSCULAR HEMOGLOBIN CONC 33.3 GM/DL 32.3-36.5 (BEAKER) (test code = 752) RED CELL DISTRIBUTION WIDTH 14.7 % 11.6-14.4 H (BEAKER) (test code = 412) PLATELET COUNT (BEAKER) (test 100 K/CU MM 150-450 L code = 756) MEAN PLATELET VOLUME (BEAKER) 10.4 fL 9.4-12.4 (test code = 754) NUCLEATED RED BLOOD CELLS 0 /100 WBC 0-0 (BEAKER) (test code = 413) NEUTROPHILS RELATIVE PERCENT 65 % (BEAKER) (test code = 429) LYMPHOCYTES RELATIVE PERCENT 20 % (BEAKER) (test code = 430) MONOCYTES RELATIVE PERCENT 8 % (BEAKER) (test code = 431) EOSINOPHILS RELATIVE PERCENT 6 % (BEAKER) (test code = 432) BASOPHILS RELATIVE PERCENT 1 % (BEAKER) (test code = 437) NEUTROPHILS ABSOLUTE COUNT 2.41 K/ L 1.78-5.38 (BEAKER) (test code = 670) LYMPHOCYTES ABSOLUTE COUNT 0.74 K/ L 1.32-3.57 L (BEAKER) (test code = 414) MONOCYTES ABSOLUTE COUNT (BEAKER) 0.28 K/ L 0.30-0.82 L (test code = 415) EOSINOPHILS ABSOLUTE COUNT 0.22 K/ L 0.04-0.54 (BEAKER) (test code = 416) BASOPHILS ABSOLUTE COUNT (BEAKER) 0.02 K/ L 0.01-0.08 (test code = 417) IMMATURE GRANULOCYTES-RELATIVE 0.50 % 0.00-1.00 PERCENT (BEAKER) (test code = 2801) POCT-GLUCOSE [id number] 21:24:31 Test Item Value Reference Range Interpretation Comments POC-GLUCOSE METER 229 mg/dL 70-110 H : TESTED A T [facility] 6720 (BEAKER) (test code = [facility], 1538) 18489: Quarrying Specialist/Techni edgar ID = [id number] for BABAR NOVOA POCT-GLUCOSE [id number] 17:58:00 Test Item Value Reference Range Interpretation Comments POC-GLUCOSE METER 256 mg/dL 70-110 H : TESTED A T [facility] 6720 (BEAKER) (test code = [facility], 1538) 25594: Quarrying Specialist/Techni edgar ID = [id number] for OR MARYLOU SOSA HEPATIC FUNCTION [id number] 13:05:15 Test Item Value Reference Range Interpretation Comments TOTAL PROTEIN (BEAKER) (test code = 6.7 gm/dL 6.0-8.3 770) ALBUMIN (BEAKER) (test code = 1145) 3.1 g/dL 3.5-5.0 L BILIRUBIN TOTAL (BEAKER) (test code 0.5 mg/dL 0.2-1.2 = 377) BILIRUBIN DIRECT (BEAKER) (test 0.2 mg/dL 0.1-0.5 code = 706) ALKALINE PHOSPHATASE (BEAKER) (test 68 U/L 40-150 code = 346) AST (SGOT) (BEAKER) (test code = 16 U/L 5-34 353) ALT (SGPT) (BEAKER) (test code = 19 U/L 6-55 347) Quarrying Specialist ID - BSPOCT-GLUCOSE [id number] 12:11:41 Test Item Value Reference Range Interpretation Comments POC-GLUCOSE METER 310 mg/dL 70-110 H : TESTED A T [facility] 6720 (BEAKER) (test code = [facility] [place], 1538) 08380: Quarrying Specialist/Techni edgar ID = [id number] for OR MARYLOU SOSA POCT-GLUCOSE [id number] 08:36:09 Test Item Value Reference Range Interpretation Comments POC-GLUCOSE METER 216 mg/dL 70-110 H : TESTED A T [facility] 6720 (BEAKER) (test code = [facility], 1538) 73317: Quarrying Specialist/Techni edgar ID = [id number] for OR MARYLOU SOSA BASIC METABOLIC [id number] 08:20:34 Test Item Value Reference Range Interpretation Comments SODIUM (BEAKER) 143 meq/L 136-145 (test code = 381) POTASSIUM 3.9 meq/L 3.5-5.1 (BEAKER) (test code = 379) CHLORIDE (BEAKER) 106 meq/L 98-107 (test code = 382) CO2 (BEAKER) 27 meq/L 22-29 (test code = 355) BLOOD UREA 25 mg/dL 7-21 H NITROGEN (BEAKER) (test code = 354) CREATININE 1.58 mg/dL 0.57-1.25 H (BEAKER) (test code = 358) GLUCOSE RANDOM 224 mg/dL 70-105 H (BEAKER) (test code = 652) CALCIUM (BEAKER) 8.8 mg/dL 8.4-10.2 (test code = 697) EGFR (BEAKER) 46 Interpretatio n of eGFR (test code = mL/min/1.73 values Stage De scription 1092) sq m Result G1 Jayne l or high >=90 G2 Mildly decreased 60-89 G3a Mildl y to moderately 45-5 9 G3b Moderately to s everely 30-44 G4 Severl y decreased 15-29 G5 Kidney failure <15Reported eGF R is based on the CKD-EPI 2021 equation that d oes not use a race coefficientEsti mated GFR is not as accur ate as Creatinine Montserrat romo in predicting glom erular filtration rate . Estimated GFR is not appl icable for dialysis patien ts Quarrying Specialist ID - GABRIELA GOperator ID - GABRIELA GOperator ID - GABRIELA GCBC W/PLT COUNT & AUTO [id number] 06:11:39 Test Item Value Reference Range Interpretation Comments WHITE BLOOD CELL COUNT (BEAKER) 5.9 K/ L 3.5-10.5 (test code = 775) RED BLOOD CELL COUNT (BEAKER) 2.96 M/ L 4.63-6.08 L (test code = 761) HEMOGLOBIN (BEAKER) (test code = 8.8 GM/DL 13.7-17.5 L 410) HEMATOCRIT (BEAKER) (test code = 26.6 % 40.1-51.0 L 411) MEAN CORPUSCULAR VOLUME (BEAKER) 90 fL 79-92 (test code = 753) MEAN CORPUSCULAR HEMOGLOBIN 29.7 pg 25.7-32.2 (BEAKER) (test code = 751) MEAN CORPUSCULAR HEMOGLOBIN CONC 33.1 GM/DL 32.3-36.5 (BEAKER) (test code = 752) RED CELL DISTRIBUTION WIDTH 14.7 % 11.6-14.4 H (BEAKER) (test code = 412) PLATELET COUNT (BEAKER) (test 117 K/CU MM 150-450 L code = 756) MEAN PLATELET VOLUME (BEAKER) 11.6 fL 9.4-12.4 (test code = 754) NUCLEATED RED BLOOD CELLS 0 /100 WBC 0-0 (BEAKER) (test code = 413) NEUTROPHILS RELATIVE PERCENT 73 % (BEAKER) (test code = 429) LYMPHOCYTES RELATIVE PERCENT 15 % (BEAKER) (test code = 430) MONOCYTES RELATIVE PERCENT 6 % (BEAKER) (test code = 431) EOSINOPHILS RELATIVE PERCENT 5 % (BEAKER) (test code = 432) BASOPHILS RELATIVE PERCENT 0 % (BEAKER) (test code = 437) NEUTROPHILS ABSOLUTE COUNT 4.31 K/ L 1.78-5.38 (BEAKER) (test code = 670) LYMPHOCYTES ABSOLUTE COUNT 0.86 K/ L 1.32-3.57 L (BEAKER) (test code = 414) MONOCYTES ABSOLUTE COUNT (BEAKER) 0.34 K/ L 0.30-0.82 (test code = 415) EOSINOPHILS ABSOLUTE COUNT 0.31 K/ L 0.04-0.54 (BEAKER) (test code = 416) BASOPHILS ABSOLUTE COUNT (BEAKER) 0.02 K/ L 0.01-0.08 (test code = 417) IMMATURE GRANULOCYTES-RELATIVE 1.00 % 0.00-1.00 PERCENT (BEAKER) (test code = 2801) POCT-GLUCOSE [id number] 20:05:46 Test Item Value Reference Range Interpretation Comments POC-GLUCOSE METER 313 mg/dL 70-110 H : TESTED A T [facility] (CLAUDIO) (test code = [place], 1538) 97822: Quarrying Specialist/Techni edgar ID = [id number] for HALEY HOPSON RAD, CHEST, 1 VIEW, NON [id number] 17:47:00Reason for exam:->check picc placementShould this be performed at the bedside?->Yesmay need grid, pt 6'8" 300lbs+[facility]ame[facility] BILLY FLAHERTY : 1945 Sex: MFINAL REPORT Exam: RAD, CHEST, 1 VIEW, NON DEPTDate: 02/23/2022 5:46 PM Indication: Line placement Comparison: None FINDINGS: Lines/Tubes:Right PICC tip at the superior cavoatrial junction. Lungs:The lungs are well inflated. No focal consolidation or pulmonary edema. Pleura:No pleural effusion. No pneumothorax. Heart/Mediastinum:The cardiomediastinal silhouette is normal in size and co ntour. Bones/Soft Tissues: No acute osseous injury. Abdomen: No free air below the diaphragm. IMPRESSION:Right PICC tip at the superior cavoatrial junction. Clear lungs. Signed: Jai Heredia MDReport Verified Date/Time: 02/23/2022 17:47:24 POCT- GLUCOSE [id number] 17:30:37 Test Item Value Reference Range Interpretation Comments POC-GLUCOSE METER 320 mg/dL 70-110 H : TESTED A T [facility] 6720 (BEAKER) (test code [facility], = 1538) 76394: Quarrying Specialist/Techni edgar ID = [id number] for Brandi Field Transesophageal [id number] 16:29:59Ejection FractionSLEH ECHO HEARTLAB MKCKESSON CPACSKaiser Permanente Medical Center Santa Rosaodium, random [id number] 14:12:52 Test Item Value Reference Range Interpretation Comments Sodium Urine (test 125 meq/L code = 2955-3) SAMPSON (test code = Reference Range: No SAMPSON) NormalsOperator ID - KELSEA D [facility] RosaODIUM, RANDOM [id number] 14:12:52 Test Item Value Reference Range Interpretation Comments SODIUM URINE (BEAKER) (test code = 125 meq/L 243) Reference Range: No NormalsOperator ID - KELSEA DPOCT-GLUCOSE [id number] 12:15:01 Test Item Value Reference Range Interpretation Comments POC-GLUCOSE METER 195 mg/dL 70-110 H : TESTED A T [facility] 6720 (BEAKER) (test code [facility], = 1538) 73633: Quarrying Specialist/Techni edgar ID = [id number] for Brandi Field BLOOD [id number] 12:04:13 Test Item Value Reference Range Interpretation Comments CULTURE (BEAKER) (test No growth in 5 days code = 1095) BLOOD [id number] 12:04:13 Test Item Value Reference Range Interpretation Comments CULTURE (BEAKER) (test No growth in 5 days code = 1095) POCT-GLUCOSE [id number] 07:20:54 Test Item Value Reference Range Interpretation Comments POC-GLUCOSE METER 214 mg/dL 70-110 H : TESTED A T [facility] 6720 (BEAKER) (test code [facility], = 1538) 95867: Quarrying Specialist/Techni edgar ID = [id number] for Brandi Field (CELLAVISION MANUAL DIFF)2022-02-23 07:20:23 Test Item Value Reference Range Interpretation Comments NEUTROPHILS - REL 83 % (CELLAVISION)(BEAKER) (test code = 2816) LYMPHOCYTES - REL 8 % (CELLAVISION)(BEAKER) (test code = 2817) MONOCYTES - REL 2 % (CELLAVISION)(BEAKER) (test code = 2818) EOSINOPHILS - REL 7 % (CELLAVISION)(BEAKER) (test code = 2819) NEUTROPHILS - ABS 4.81 K/ul 1.78-5.38 (CELLAVISION)(BEAKER) (test code = 2830) LYMPHOCYTES - ABS 0.46 K/ul 1.32-3.57 L (CELLAVISION)(BEAKER) (test code = 2831) MONOCYTES - ABS 0.12 K/uL 0.30-0.82 L (CELLAVISION)(BEAKER) (test code = 2832) EOSINOPHILS - ABS 0.41 K/uL 0.04-0.54 (CELLAVISION)(BEAKER) (test code = 2834) TOTAL COUNTED (BEAKER) (test code = 100 1351) WBC MORPHOLOGY (BEAKER) (test code Normal = 487) PLT MORPHOLOGY (BEAKER) (test code Normal = 486) ANISOCYTOSIS (BEAKER) (test code = 1+ few 961) MICROCYTES (BEAKER) (test code = 1+ few 965) ARTIFACT (CELLAVISION)(BEAKER) Present (test code = 3432) PLATELET CONCENTRATION Decreased (CELLAVISION)(BEAKER) (test code = 3438) Quarrying Specialist ID - Lluvia Tobias comments: Slide comments:CBC W/PLT COUNT & AUTO [id number] 07:20:22 Test Item Value Reference Range Interpretation Comments WHITE BLOOD CELL COUNT (BEAKER) 5.8 K/ L 3.5-10.5 (test code = 775) RED BLOOD CELL COUNT (BEAKER) 3.01 M/ L 4.63-6.08 L (test code = 761) HEMOGLOBIN (BEAKER) (test code = 9.0 GM/DL 13.7-17.5 L 410) HEMATOCRIT (BEAKER) (test code = 27.4 % 40.1-51.0 L 411) MEAN CORPUSCULAR VOLUME (BEAKER) 91 fL 79-92 (test code = 753) MEAN CORPUSCULAR HEMOGLOBIN 29.9 pg 25.7-32.2 (BEAKER) (test code = 751) MEAN CORPUSCULAR HEMOGLOBIN CONC 32.8 GM/DL 32.3-36.5 (BEAKER) (test code = 752) RED CELL DISTRIBUTION WIDTH 14.6 % 11.6-14.4 H (BEAKER) (test code = 412) PLATELET COUNT (BEAKER) (test code 91 K/CU MM 150-450 L = 756) MEAN PLATELET VOLUME (BEAKER) 11.8 fL 9.4-12.4 (test code = 754) NUCLEATED RED BLOOD CELLS (BEAKER) 0 /100 WBC 0-0 (test code = 413) BASIC METABOLIC [id number] 05:34:48 Test Item Value Reference Range Interpretation Comments SODIUM (BEAKER) 140 meq/L 136-145 (test code = 381) POTASSIUM 4.6 meq/L 3.5-5.1 (BEAKER) (test code = 379) CHLORIDE (BEAKER) 105 meq/L 98-107 (test code = 382) CO2 (BEAKER) 26 meq/L 22-29 (test code = 355) BLOOD UREA 30 mg/dL 7-21 H NITROGEN (BEAKER) (test code = 354) CREATININE 1.56 mg/dL 0.57-1.25 H (BEAKER) (test code = 358) GLUCOSE RANDOM 246 mg/dL 70-105 H (BEAKER) (test code = 652) CALCIUM (BEAKER) 8.9 mg/dL 8.4-10.2 (test code = 697) EGFR (BEAKER) 47 Interpretatio n of eGFR (test code = [...] not as accur ate as Creatinine Montserrat romo in predicting glom erular filtration rate . Estimated GFR is not appl icable for dialysis patien ts Quarrying Specialist ID - ARIA WPOCT-GLUCOSE [id number] 21:30:33 Test Item Value Reference Range Interpretation Comments POC-GLUCOSE METER 274 mg/dL 70-110 H : TESTED A T [facility] 6720 (BEAKER) (test code = [facility], 1538) 73337: Quarrying Specialist/Techni edgar ID = [id number] for Br Maranda cain POCT-GLUCOSE [id number] 17:25:41 Test Item Value Reference Range Interpretation Comments POC-GLUCOSE METER 297 mg/dL 70-110 H : TESTED A T [facility] 6720 (BEAKER) (test code [facility], = 1538) 21115: Quarrying Specialist/Techni edgar ID = [id number] for Rl rs, Maribeth ANTI-NUCLEAR ANTIBODY (ARACELIS)2022 15:02:26 Test Item Value Reference Range Interpretation Comments ANTI-NUCLEAR ANTIBODY (ARACELIS) ([facility]) Negative Negative (test code = 418) Test performed by IFA method.Test performed by IFA method.POCT-GLUCOSE METER 2022 14:58:47 Test Item Value Reference Range Interpretation Comments POC-GLUCOSE METER 213 mg/dL 70-110 H : TESTED A T [facility] 6720 (BEAKER) (test code = [facility], 1538) 44973: Quarrying Specialist/Techni edgar ID = [id number] for LJ BUTLER POCT-GLUCOSE [id number] 12:21:28 Test Item Value Reference Range Interpretation Comments POC-GLUCOSE METER 209 mg/dL 70-110 H : TESTED A T [facility] 6720 (BEAKER) (test code [facility], = 1538) 39271: Quarrying Specialist/Techni edgar ID = [id number] for Rl rs, Maribeth POCT-GLUCOSE [id number] 08:40:37 Test Item Value Reference Range Interpretation Comments POC-GLUCOSE METER 195 mg/dL 70-110 H : TESTED A T [facility] 6720 (BEAKER) (test code [facility], = 1538) 86928: Quarrying Specialist/Techni edgar ID = [id number] for Rl rs, Maribeth ALPHA FETOPROTEIN (AFP), TUMOR [id number] 05:59:46 Test Item Value Reference Range Interpretation Comments ALPHA-FETOPROTEIN (BEAKER) (test code < ng/mL <10.0 = 1094) Quarrying Specialist ID - BSBASIC METABOLIC [id number] 05:38:41 Test Item Value Reference Range Interpretation Comments SODIUM (BEAKER) 135 meq/L 136-145 L (test code = 381) POTASSIUM 4.0 meq/L 3.5-5.1 (BEAKER) (test code = 379) CHLORIDE (BEAKER) 104 meq/L 98-107 (test code = 382) CO2 (BEAKER) 24 meq/L 22-29 (test code = 355) BLOOD UREA 38 mg/dL 7-21 H NITROGEN (BEAKER) (test code = 354) CREATININE 1.54 mg/dL 0.57-1.25 H (BEAKER) (test code = 358) GLUCOSE RANDOM 194 mg/dL 70-105 H (BEAKER) (test code = 652) CALCIUM (BEAKER) 8.7 mg/dL 8.4-10.2 (test code = 697) EGFR (BEAKER) 47 Interpretatio n of eGFR (test code = [...] not as accur ate as Creatinine Montserrat romo in predicting glom erular filtration rate . Estimated GFR is not appl icable for dialysis patien ts Quarrying Specialist ID - BSCBC W/PLT COUNT & AUTO [id number] 05:22:37 Test Item Value Reference Range Interpretation Comments WHITE BLOOD CELL COUNT (BEAKER) 6.7 K/ L 3.5-10.5 (test code = 775) RED BLOOD CELL COUNT (BEAKER) 3.07 M/ L 4.63-6.08 L (test code = 761) HEMOGLOBIN (BEAKER) (test code = 9.2 GM/DL 13.7-17.5 L 410) HEMATOCRIT (BEAKER) (test code = 27.6 % 40.1-51.0 L 411) MEAN CORPUSCULAR VOLUME (BEAKER) 90 fL 79-92 (test code = 753) MEAN CORPUSCULAR HEMOGLOBIN 30.0 pg 25.7-32.2 (BEAKER) (test code = 751) MEAN CORPUSCULAR HEMOGLOBIN CONC 33.3 GM/DL 32.3-36.5 (BEAKER) (test code = 752) RED CELL DISTRIBUTION WIDTH 14.6 % 11.6-14.4 H (BEAKER) (test code = 412) PLATELET COUNT (BEAKER) (test code 80 K/CU MM 150-450 L = 756) MEAN PLATELET VOLUME (BEAKER) 12.5 fL 9.4-12.4 H (test code = 754) NUCLEATED RED BLOOD CELLS (BEAKER) 0 /100 WBC 0-0 (test code = 413) NEUTROPHILS RELATIVE PERCENT 77 % (BEAKER) (test code = 429) LYMPHOCYTES RELATIVE PERCENT 13 % (BEAKER) (test code = 430) MONOCYTES RELATIVE PERCENT 6 % (BEAKER) (test code = 431) EOSINOPHILS RELATIVE PERCENT 3 % (BEAKER) (test code = 432) BASOPHILS RELATIVE PERCENT 0 % (BEAKER) (test code = 437) NEUTROPHILS ABSOLUTE COUNT 5.19 K/ L 1.78-5.38 (BEAKER) (test code = 670) LYMPHOCYTES ABSOLUTE COUNT 0.88 K/ L 1.32-3.57 L (BEAKER) (test code = 414) MONOCYTES ABSOLUTE COUNT (BEAKER) 0.40 K/ L 0.30-0.82 (test code = 415) EOSINOPHILS ABSOLUTE COUNT 0.22 K/ L 0.04-0.54 (BEAKER) (test code = 416) BASOPHILS ABSOLUTE COUNT (BEAKER) 0.02 K/ L 0.01-0.08 (test code = 417) IMMATURE GRANULOCYTES-RELATIVE 0.40 % 0.00-1.00 PERCENT (BEAKER) (test code = 2801) POCT-GLUCOSE [id number] 23:26:45 Test Item Value Reference Range Interpretation Comments POC-GLUCOSE METER 377 mg/dL 70-110 H : TESTED Vanesa T [facility] 6720 (BEAKER) (test code = [place], 1538) 29154: Quarrying Specialist/Techni edgar ID = [id number] for Maranda Miner POCT-GLUCOSE [id number] 21:37:47 Test Item Value Reference Range Interpretation Comments POC-GLUCOSE METER 413 mg/dL 70-110 HH : Notified RN/MD: (JOSE ARMANDOPRACHI) (test code = TESTED AT [facility] 6720 1538) [facility], 45030: Quarrying Specialist/Techni edgar ID = [id number] for Maranda Miner [id number] 18:09:28 Test Item Value Reference Range Interpretation Comments FERRITIN (BEAKER) (test code = 381.25 ng/mL 5.00-275.00 H 361) Quarrying Specialist ID - BSPOCT-GLUCOSE [id number] 17:39:43 Test Item Value Reference Range Interpretation Comments POC-GLUCOSE METER 264 mg/dL 70-110 H : TESTED A T [facility] 6720 (CLAUDIO) (test code = [facility], 1538) 86386: Quarrying Specialist/Techni edgar ID = [id number] for RAIMUNDO SINGH HEPATITIS B SURFACE [id number] 17:23:36 Test Item Value Reference Range Interpretation Comments HEPATITIS B SURFACE ANTIBODY < mIU/mL <8.0 (JOSE ARMANDOAKER) (test code = 647) Quarrying Specialist ID - ADMINHEPATITIS A ANTIBODY, [id number] 17:23:00 Test Item Value Reference Range Interpretation Comments HEPATITIS A IGG ANTIBODY (BEAKER) Nonreactive Nonreactive (test code = 2797) Quarrying Specialist ID - ADMINHEPATITIS C [id number] 17:22:59 Test Item Value Reference Range Interpretation Comments HEPATITIS C ANTIBODY (BEAKER) Nonreactive Nonreactive (test code = 367) Quarrying Specialist ID - ADMINHEPATITIS B CORE ANTIBODY, [id number] 17:22:59 Test Item Value Reference Range Interpretation Comments HEPATITIS B CORE TOTAL ANTIBODY Nonreactive Nonreactive (BEAKER) (test code = 497) Quarrying Specialist ID - ADMINHEPATITIS B SURFACE [id number] 17:22:58 Test Item Value Reference Range Interpretation Comments HEPATITIS B SURFACE ANTIGEN (2) Nonreactive Nonreactive (BEAKER) (test code = 2585) Specimen is considered negative for HBsAg.IRON, TIBC, % SAT. (WITHOUT FERRITIN) 2022-02-21 17:06:37 Test Item Value Reference Range Interpretation Comments IRON (BEAKER) (test code = 547) 29.0 ug/dL 40.0-160.0 L TOTAL IRON BINDING CAPACITY 189 ug/dL 250-450 L (CLAUDIO) (test code = 769) IRON % SATURATION (2) (CLAUDIO) 15 % 20-55 L (test code = 2590) Quarrying Specialist ID - [id number]-[id number] 17:00:35 Test Item Value Reference Range Interpretation Comments ALPHA-1 ANTITRYPSIN (CLAUDIO) 260.90 mg/dL 90.00-200.00 H (test code = 502) Quarrying Specialist ID - ADMINPOCT-GLUCOSE [id number] 13:08:44 Test Item Value Reference Range Interpretation Comments POC-GLUCOSE METER 309 mg/dL 70-110 H : TESTED A T [facility] 6720 (CLAUDIO) (test code = [facility] [place], 1538) 07179: Quarrying Specialist/Techni edgar ID = [id number] for HI DALGO, AGLAE CT, [id number] 08:15:00Unlisted Reason for Exam - Click Yes and Enter Reason Below->YesUnlisted Reason for Exam->Bacteremia, R/O abd sourceProtocol Please Specify:->Standard ProtocolWill this procedure require oral contrast?->Yes [facility] : 1945 Sex: MFINAL REPORT ABDOMINAL AND PELVIS CT DATED 02/21/2022 CLINICAL INFORMATION: UnlistedReason for ExamBacteremia, R/O abd source TECHNIQUE: Axial images of the abdomen and pelvis were obtained from diaphragm to the pubic symphysis with GI and intravenous contrast. This exam was performedaccording to our departmental dose-optimization program, which includes automated exposure control, adjustment of the mA and/or kV according to patient size and/or use of interactive reconstruction technique. COMMENT: There is trace left pleural effusion. Groundglass pulmonary parenchyma disease is seen in both lower lobes. Liver is cirrhotic in appearance with irregular margins. No suspicious mass is seen in the liver. Spleen is enlarged measuring 13.6 x 6.5 x 14.9 cm. An accessory splenule is present to measuring 3 cm in size. Gallbladder is contracted. No gallstone or biliary dilatation is noted. Pancreas and right adrenal are unremarkable. A 1.6 x 2.6 cm mass is seen in the left adrenal. Both kidneys are normal in size and functioning. No hydronephrosis, hydroureter, urolithiasis is seen. Diverticular disease is seen in the large bowel without diverticulitis. The small bowel is normal in caliber. Appendix is not visualized. Prostate is normal in size. The urinary bladder is contracted. No ma ss, adenopathy or ascites is present. IMPRESSION: 1. Trace left pleural effusion and nonspecific groundglass pulmonary parenchyma disease in the visualized lower lobes.2. Cirrhosis with splenomegaly.3.Diverticulosis without diverticulitis.4. No abscess in the abdomen or pelvis.5. Left adrenal mass. Signed: Kartik Cottrellort Verified Date/Time: 02/21/2022 08:15:45 Reading Location: [place] [id number] [facility] Reading Room POCT-GLUCOSE [id number] 07:53:25 Test Item Value Reference Range Interpretation Comments POC-GLUCOSE METER 234 mg/dL 70-110 H : [facility] ([employer]) (test code = [facility], 153) 70524: Quarrying Specialist/Techni edgar ID = [id number] for RAIMUNDO SINGH POCT-GLUCOSE [id number] 20:39:36 Test Item Value Reference Range Interpretation Comments POC-GLUCOSE METER 249 mg/dL 70-110 H : TESTED A T [facility] 6720 ([employer]) (test code = [facility], 153) 49696: Quarrying Specialist/Techni edgar ID = [id number] for RO JEREMYNITINBABAR POCT-GLUCOSE [id number] 17:41:40 Test Item Value Reference Range Interpretation Comments POC-GLUCOSE METER 180 mg/dL 70-110 H : TESTED A T [facility] 6720 (BEAKER) (test code = [place], 1538) 25484: Quarrying Specialist/Techni edgar ID = [id number] for Jeannette Foster Urinalysis w/Microscopic + Reflex to [id number] 17:33:49 Test Item Value Reference Range Interpretation Comments Color, UA (test code Yellow = 5778-6) Clarity, UA (test Clear code = 5767-9) Specific Gregory, UA 1.021 1.001-1.035 (test code = 5811-5) pH, UA (test code = 5.5 5.0-8.0 5803-2) Protein, UA (test 30 mg/dL Negative A code = 66507-6) Glucose, UA (test Negative Negative code = 365) Ketones, UA (test Negative Negative code = 2514-8) Bilirubin, UA (test Negative Negative code = 35090-8) Blood, UA (test code Negative Negative = 13417-5) Nitrite, UA (test Negative Negative code = 5802-4) Leukocytes, UA (test Negative Negative code = 5799-2) Urobilinogen, UA 0.2 0.2-1.0 (test code = 48676-2) RBC, UA (test code = <1 See_Comment [Autom ated 32143-4) message] The system which generated this result transmit deepali reference range : /HPF. The reference range was not used to interpret this result as normal/abnormal . WBC, UA (test code = <1 See_Comment [Autom ated 5821-4) message] The system which generated this result transmit deepali reference range : /HPF. The reference range was not used to interpret this result as normal/abnormal . Specimen Source (test code = 2795) SAMPSON (test code = SAMPSON) Quarrying Specialist ID - [auto] Lab Interpretation Abnormal (test code = 92545-4) [facility] [id number] 17:33:49 Test Item Value Reference Range Interpretation Comments COLOR (BEAKER) (test code = 470) Yellow CLARITY (BEAKER) (test code = 469) Clear SPECIFIC GRAVITY UA (BEAKER) (test 1.021 1.001-1.035 code = 468) PH UA (BEAKER) (test code = 467) 5.5 5.0-8.0 PROTEIN UA (BEAKER) (test code = 30 mg/dL Negative A 464) GLUCOSE UA (BEAKER) (test code = Negative Negative 365) KETONES UA (BEAKER) (test code = Negative Negative 371) BILIRUBIN UA (BEAKER) (test code = Negative Negative 462) BLOOD UA (BEAKER) (test code = 461) Negative Negative NITRITE UA (BEAKER) (test code = Negative Negative 465) LEUKOCYTE ESTERASE UA (BEAKER) (test Negative Negative code = 466) UROBILINOGEN UA (BEAKER) (test code 0.2 0.2-1.0 = 463) RBC UA (BEAKER) (test code = 519) < /HPF WBC UA (BEAKER) (test code = 520) < /HPF SOURCE(BEAKER) (test code = 9836) Quarrying Specialist ID - [auto]POCT-GLUCOSE [id number] 12:30:56 Test Item Value Reference Range Interpretation Comments POC-GLUCOSE METER 241 mg/dL 70-110 H : TESTED A T [facility] 67[address] (BEAKER) (test code = [facility], 153) [address]755: Quarrying Specialist/Techni edgar ID = [id number] for Ba rrera, Jeannette POCT-GLUCOSE [id number] 08:29:42 Test Item Value Reference Range Interpretation Comments POC-GLUCOSE METER 184 mg/dL 70-110 H : TESTED A T [facility] (BEAKER) (test code = [facility], 153) 23129: Quarrying Specialist/Techni edgar ID = [id number] for Ba rrera, Jeannette HEPATIC FUNCTION [id number] 07:41:31 Test Item Value Reference Range Interpretation Comments TOTAL PROTEIN (BEAKER) (test code = 6.5 gm/dL 6.0-8.3 770) ALBUMIN (BEAKER) (test code = 1145) 3.0 g/dL 3.5-5.0 L BILIRUBIN TOTAL (BEAKER) (test code 1.0 mg/dL 0.2-1.2 = 377) BILIRUBIN DIRECT (BEAKER) (test 0.4 mg/dL 0.1-0.5 code = 706) ALKALINE PHOSPHATASE (BEAKER) (test 52 U/L 40-150 code = 346) AST (SGOT) (BEAKER) (test code = 28 U/L 5-34 353) ALT (SGPT) (BEAKER) (test code = 25 U/L 6-55 347) Quarrying Specialist JULIANA CASEY LBASIC METABOLIC [id number] 07:41:30 Test Item Value Reference Range Interpretation Comments SODIUM (BEAKER) 139 meq/L 136-145 (test code = 381) POTASSIUM 4.2 meq/L 3.5-5.1 (BEAKER) (test code = 379) CHLORIDE (BEAKER) 106 meq/L 98-107 (test code = 382) CO2 (BEAKER) 22 meq/L 22-29 (test code = 355) BLOOD UREA 40 mg/dL 7-21 H NITROGEN (BEAKER) (test code = 354) CREATININE 1.60 mg/dL 0.57-1.25 H (BEAKER) (test code = 358) GLUCOSE RANDOM 158 mg/dL 70-105 H (BEAKER) (test code = 652) CALCIUM (BEAKER) 8.6 mg/dL 8.4-10.2 (test code = 697) EGFR (BEAKER) 45 Interpretatio n of eGFR (test code = mL/min/1.73 values Stage D escription 1092) sq m Result G1 Jayne l or high >=90 G2 Mildly decreased 60-89 G3a Mildl y to moderately 45-5 9 G3b Moderately to s everely 30-44 G4 Severl y decreased 15-29 G5 Kidney failure <15Reported eGF R is based on the CKD-EPI 2021 equation that d oes not use a race coefficientEsti mated GFR is not as accur ate as Creatinine Montserrat romo in predicting glom erular filtration rate . Estimated GFR is not appl icable for dialysis patien ts Quarrying Specialist ID - JACINTO [id number] 07:41:30 Test Item Value Reference Range Interpretation Comments MAGNESIUM (BEAKER) (test code = 1.8 mg/dL 1.6-2.6 627) Quarrying Specialist ID July CASEY LCBC W/PLT COUNT & AUTO [id number] 04:22:06 Test Item Value Reference Range Interpretation Comments WHITE BLOOD CELL COUNT (BEAKER) 4.5 K/ L 3.5-10.5 (test code = 775) RED BLOOD CELL COUNT (BEAKER) 2.88 M/ L 4.63-6.08 L (test code = 761) HEMOGLOBIN (BEAKER) (test code = 8.7 GM/DL 13.7-17.5 L 410) HEMATOCRIT (BEAKER) (test code = 26.1 % 40.1-51.0 L 411) MEAN CORPUSCULAR VOLUME (BEAKER) 91 fL 79-92 (test code = 753) MEAN CORPUSCULAR HEMOGLOBIN 30.2 pg 25.7-32.2 (BEAKER) (test code = 751) MEAN CORPUSCULAR HEMOGLOBIN CONC 33.3 GM/DL 32.3-36.5 (BEAKER) (test code = 752) RED CELL DISTRIBUTION WIDTH 14.9 % 11.6-14.4 H (BEAKER) (test code = 412) PLATELET COUNT (BEAKER) (test code 41 K/CU MM 150-450 L = 756) MEAN PLATELET VOLUME (BEAKER) 13.8 fL 9.4-12.4 H (test code = 754) NUCLEATED RED BLOOD CELLS (BEAKER) 0 /100 WBC 0-0 (test code = 413) NEUTROPHILS RELATIVE PERCENT 73 % (BEAKER) (test code = 429) LYMPHOCYTES RELATIVE PERCENT 14 % (BEAKER) (test code = 430) MONOCYTES RELATIVE PERCENT 8 % (BEAKER) (test code = 431) EOSINOPHILS RELATIVE PERCENT 5 % (BEAKER) (test code = 432) BASOPHILS RELATIVE PERCENT 0 % (BEAKER) (test code = 437) NEUTROPHILS ABSOLUTE COUNT 3.27 K/ L 1.78-5.38 (BEAKER) (test code = 670) LYMPHOCYTES ABSOLUTE COUNT 0.61 K/ L 1.32-3.57 L (BEAKER) (test code = 414) MONOCYTES ABSOLUTE COUNT (BEAKER) 0.37 K/ L 0.30-0.82 (test code = 415) EOSINOPHILS ABSOLUTE COUNT 0.20 K/ L 0.04-0.54 (BEAKER) (test code = 416) BASOPHILS ABSOLUTE COUNT (BEAKER) 0.01 K/ L 0.01-0.08 (test code = 417) IMMATURE GRANULOCYTES-RELATIVE 0.20 % 0.00-1.00 PERCENT (BEPRACHI) (test code = 2801) POCT-GLUCOSE [id number] 21:14:44 Test Item Value Reference Range Interpretation Comments POC-GLUCOSE METER 151 mg/dL 70-110 H : TESTED A T [facility] 6720 (CLAUDIO) (test code = MARCENY [facility], 1538) [address]: Quarrying Specialist/Techni edgar ID = [id number] for BABAR NOVOA POCT-GLUCOSE [id number] 17:37:39 Test Item Value Reference Range Interpretation Comments POC-GLUCOSE METER 174 mg/dL 70-110 H : TESTED A T [facility] 6720 (CLAUDIO) (test code = [facility], 1538) 770[address]: Quarrying Specialist/Techni edgar ID = [id number] for BABAR NOVOA Respiratory Panel [id number] 15:45:57 Test Item Value Reference Range Interpretation Comments Human Metapneumovirus Not detected Not detected, (test code = 30760-1) Equivocal Rhinovirus (test code = Not detected Not detected, 00716-1) Equivocal INFLUENZA A (NO Not detected Not detected, SUBTYPE) (test code = Equivocal 86313-8) Influenza A subtype H1 (test code = 96425-9) Influenza A Subtype H3 (test code = 75893-0) Influenza A Subtype H1-2009 (test code = 06680-3) Influenza B (test code Not detected Not detected, = 11085-5) Equivocal Respiratory Syncytial Not detected Not detected, Virus (test code = Equivocal 41639-3) Parainfluenza Virus 1 Not detected Not detected, (test code = 45862-5) Equivocal Parainfluenza Virus 2 Not detected Not detected, (test code = 47688-5) Equivocal Parainfluenza virus 3 Not detected Not detected, (test code = 90423-1) Equivocal Parainfluenza Virus 4 Not detected Not detected, (test code = 97178-7) Equivocal Adenovirus (test code = Not detected Not detected, 61532-8) Equivocal Coronavirus 229E (test Not detected Not detected, code = 89650-6) Equivocal Coronavirus HKU1 (test Not detected Not detected, code = 61967-4) Equivocal Coronavirus NL63 (test Not detected Not detected, code = 47670-3) Equivocal Coronavirus OC43 (test Not detected Not detected, code = 42580-5) Equivocal Bordetella Pertussis Not detected Not detected, (test code = 85663-9) Equivocal Chlamydophila Not detected Not detected, Pneumoniae (test code = Equivocal 19139-3) Mycoplasma Pneumoniae Not detected Not detected, (test code = 76699-4) Equivocal Severe Acute Not detected Not detected, Rlibduuorqk-NjK-7 (test Equivocal code = 59045-4) Bordtella Parapertussis Not detected Not detected, (test code = 50088-2) Equivocal SAMPSON (test code = SAMPSON) Other viruses and bacteria not targeted by this PCR panel cannot be excluded; therefore clinical correlation and follow up of serology, culture results, and other molecular studies is required. The results are not intended to be used as the sole means for clinical diagnosis or patient management decisions. This sample was tested at the [facility] using the FourandhalfArray Respiratory Panel. It is FDA cleared and has been verified and approved by the [facility] for clinical use on nasopharyngeal swab specimens. The performance of the FilmArray RP has not been established in individuals who received influenza vaccine. Recent administration of a nasal influenza vaccine may cause false positive results for Influenza A and/orInfluenza B. [facility] [id number] 15:45:57 Test Item Value Reference Range Interpretation Comments HUMAN METAPNEUMOVIRUS Not detected Not detected, (BEAKER) (test code = 2683) Equivocal RHINOVIRUS (BEAKER) (test Not detected Not detected, code = 2684) Equivocal INFLUENZA A (BEAKER) (test Not detected Not detected, code = 2685) Equivocal INFLUENZA A (NO SUBTYPE) (test code = 3606) INFLUENZA A SUBTYPE H1 (BEAKER) (test code = 2686) INFLUENZA A SUBTYPE H3 (BEAKER) (test code = 2687) INFLUENZA A SUBTYPE H1-2009 (BEAKER) (test code = 3198) INFLUENZA B (BEAKER) (test Not detected Not detected, code = 2688) Equivocal RESPIRATORY SYNCYTIAL VIRUS Not detected Not detected, (BEAKER) (test code = 3199) Equivocal PARAINFLUENZA VIRUS 1 Not detected Not detected, (BEAKER) (test code = 2691) Equivocal PARAINFLUENZA VIRUS 2 Not detected Not detected, (BEAKER) (test code = 2692) Equivocal PARAINFLUENZA VIRUS 3 Not detected Not detected, (BEAKER) (test code = 2693) Equivocal PARAINFLUENZA VIRUS 4 Not detected Not detected, (BEAKER) (test code = 3200) Equivocal ADENOVIRUS (BEAKER) (test Not detected Not detected, code = 2694) Equivocal CORONAVIRUS 229E (BEAKER) Not detected Not detected, (test code = 3201) Equivocal CORONAVIRUS HKU1 (BEAKER) Not detected Not detected, (test code = 3202) Equivocal CORONAVIRUS NL63 (BEAKER) Not detected Not detected, (test code = 3203) Equivocal CORONAVIRUS OC43 (BEAKER) Not detected Not detected, (test code = 3204) Equivocal BORDETELLA PERTUSSIS Not detected Not detected, (BEAKER) (test code = 3205) Equivocal CHLAMYDOPHILA PNEUMONIAE Not detected Not detected, (BEAKER) (test code = 3206) Equivocal MYCOPLASMA PNEUMONIAE Not detected Not detected, (BEAKER) (test code = 3207) Equivocal SEVERE ACUTE RESPIRATORY Not detected Not detected, [id number]-0 Equivocal (test code = 6049631) BORDETELLA PARAPERTUSSIS Not detected Not detected, (BKR) (test code = 7037206) Equivocal Other viruses and bacteria not targeted by this PCR panel cannot be excluded; therefore clinical correlation and follow up of serology, culture results, and other molecular studies is required. The results are not intended to be used as the sole means for clinical diagnosis or patient management decisions. This sample was tested at the [facility] using the copygram FilmArray Respiratory Panel. It is FDA cleared and has been verified and approved by the [facility] for clinical use on nasopharyngeal swab specimens.The performance of the FilmArrayRP has not been established in individuals who received influenza vaccine. Recent administration of a nasal influenza vaccine may cause false positive results for Influenza A and/orInfluenza B.POCT-GLUCOSE [id number] 12:35:54 Test Item Value Reference Range Interpretation Comments POC-GLUCOSE METER 213 mg/dL 70-110 H : TESTED A T [facility] 67[address] (PRACHI) (test code = [facility] [place], 1538) 64[address]: Quarrying Specialist/Techni edgar ID = [id number] for LIT SUNNY POCT-GLUCOSE [id number] 07:54:11 Test Item Value Reference Range Interpretation Comments POC-GLUCOSE METER 170 mg/dL 70-110 H : TESTED A T [facility] [address] (BEAKER) (test code = [place], 1538) 864[address]: Quarrying Specialist/Techni edgar ID = [id number] for SUNNY MURRIETA [id number] 05:30:53 Test Item Value Reference Range Interpretation Comments MAGNESIUM (BEAKER) (test code = 1.8 mg/dL 1.6-2.6 627) Quarrying Specialist ID - JACINTO LHEPATIC FUNCTION [id number] 05:30:53 Test Item Value Reference Range Interpretation Comments TOTAL PROTEIN (BEAKER) (test code = 6.6 gm/dL 6.0-8.3 770) ALBUMIN (BEAKER) (test code = 1145) 3.1 g/dL 3.5-5.0 L BILIRUBIN TOTAL (BEAKER) (test code 1.1 mg/dL 0.2-1.2 = 377) BILIRUBIN DIRECT (BEAKER) (test 0.5 mg/dL 0.1-0.5 code = 706) ALKALINE PHOSPHATASE (BEAKER) (test 57 U/L 40-150 code = 346) AST (SGOT) (BEAKER) (test code = 38 U/L 5-34 H 353) ALT (SGPT) (BEAKER) (test code = 25 U/L 6-55 347) Quarrying Specialist ID - JACINTO LBASIC METABOLIC [id number] 05:30:52 Test Item Value Reference Range Interpretation Comments SODIUM (BEAKER) 137 meq/L 136-145 (test code = 381) POTASSIUM 4.4 meq/L 3.5-5.1 (BEAKER) (test code = 379) CHLORIDE (BEAKER) 105 meq/L 98-107 (test code = 382) CO2 (BEAKER) 24 meq/L 22-29 (test code = 355) BLOOD UREA 39 mg/dL 7-21 H NITROGEN (BEAKER) (test code = 354) CREATININE 1.84 mg/dL 0.57-1.25 H (BEAKER) (test code = 358) GLUCOSE RANDOM 192 mg/dL 70-105 H (BEAKER) (test code = 652) CALCIUM (BEAKER) 8.6 mg/dL 8.4-10.2 (test code = 697) EGFR (BEAKER) 38 Interpretati on of eGFR (test code = mL/min/1.73 values [...] not appl icable for dialysis patien ts Quarrying Specialist ID - PIAYA LCBC W/PLT COUNT & AUTO [id number] 04:49:59 Test Item Value Reference Range Interpretation Comments WHITE BLOOD CELL COUNT (BEAKER) 4.9 K/ L 3.5-10.5 (test code = 775) RED BLOOD CELL COUNT (BEAKER) 2.98 M/ L 4.63-6.08 L (test code = 761) HEMOGLOBIN (BEAKER) (test code = 9.0 GM/DL 13.7-17.5 L 410) HEMATOCRIT (BEAKER) (test code = 27.4 % 40.1-51.0 L 411) MEAN CORPUSCULAR VOLUME (BEAKER) 92 fL 79-92 (test code = 753) MEAN CORPUSCULAR HEMOGLOBIN 30.2 pg 25.7-32.2 (BEAKER) (test code = 751) MEAN CORPUSCULAR HEMOGLOBIN CONC 32.8 GM/DL 32.3-36.5 (BEAKER) (test code = 752) RED CELL DISTRIBUTION WIDTH 15.0 % 11.6-14.4 H (BEAKER) (test code = 412) PLATELET COUNT (BEAKER) (test code 40 K/CU MM 150-450 L = 756) MEAN PLATELET VOLUME (BEAKER) 12.6 fL 9.4-12.4 H (test code = 754) NUCLEATED RED BLOOD CELLS (BEAKER) 0 /100 WBC 0-0 (test code = 413) NEUTROPHILS RELATIVE PERCENT 73 % (BEAKER) (test code = 429) LYMPHOCYTES RELATIVE PERCENT 14 % (BEAKER) (test code = 430) MONOCYTES RELATIVE PERCENT 10 % (BEAKER) (test code = 431) EOSINOPHILS RELATIVE PERCENT 2 % (BEAKER) (test code = 432) BASOPHILS RELATIVE PERCENT 0 % (BEAKER) (test code = 437) NEUTROPHILS ABSOLUTE COUNT 3.55 K/ L 1.78-5.38 (BEAKER) (test code = 670) LYMPHOCYTES ABSOLUTE COUNT 0.69 K/ L 1.32-3.57 L (BEAKER) (test code = 414) MONOCYTES ABSOLUTE COUNT (BEAKER) 0.50 K/ L 0.30-0.82 (test code = 415) EOSINOPHILS ABSOLUTE COUNT 0.11 K/ L 0.04-0.54 (BEAKER) (test code = 416) BASOPHILS ABSOLUTE COUNT (BEAKER) 0.02 K/ L 0.01-0.08 (test code = 417) IMMATURE GRANULOCYTES-RELATIVE 0.40 % 0.00-1.00 PERCENT (BEAKER) (test code = 2801) CT, CHEST, WITHOUT [id number] 21:50:00Evaluate for [facility] : 1945 Sex: MFINAL REPORT CT Chest without contrast History: Pneumonia Comparison: none Technique: serial axial imaging was performed without intravenous contrast as per departmental protocol. Multiplanar images are reconstructed and reviewed when indicated. This CT examination is performed using one or more of the following dose reduction techniques: Automated exposure control, adjustment of the mA and /or kV according to patient size, and/or use of iterative reconstruction technique. Findings:No mediastinal lymphadenopathy. Calcified mediastinal lymph node is consistent with previous granulomatous disease. No definite hilar enlargement. Normal size heart. No pericardial effusion. Previous aortic valve replacement. No thoracic aortic aneurysm. Normal caliber of main pulmonary trunk. Patent central airways. No pleural effusion or pneumothorax. A calcified granuloma within the right upper lobe is consistent with previous granulomatous disease. The lungs are otherwise clear. No significant findings in the partially imaged abdomen. No aggressive osseous lesion. Impression:No acute findings inthe chest. Specifically, there is no evidence of pneumonia. Signed: Valerio Pantoja MDReport Verified Date/Time: 02/18/2022 21:50:15 VANCOMYCIN LEVEL, [id number] 21:20:55 Test Item Value Reference Range Interpretation Comments VANCOMYCIN RANDOM (BEAKER) (test 5.7 ug/mL code = 523) Reference Range: No NormalsOperator ID - PIAYA LPOCT-GLUCOSE [id number] 21:02:39 Test Item Value Reference Range Interpretation Comments POC-GLUCOSE METER 216 mg/dL 70-110 H : TESTED A T [facility] ([facility]) (test code = [facility], 1538) [address]: Quarrying Specialist/Techni edgar ID = [id number] for MARIEL CRAWFORD Strep pneumoniae antigen [id number] 20:45:57 Test Item Value Reference Range Interpretation Comments Strep pneumoniae Presumptive negative Presumptive Antigen (test code = [place] [address]-6) pneumonia - see pneumococcal comment pneumonia - see comment, Presumptive negative for pneumococcal meningitis - see comment SAMPSON (test code = SAMPSON) Presumptive negative for pneumococcal pneumonia, suggesting no current or recent pneumococcal infection. Infection due to S. pneumoniae cannot be ruled out since the antigen present in the sample may be below the detection limit of the test. Lab Interpretation Normal (test code = 24947-3) [facility] PNEUMONIAE [id number] 20:45:57 Test Item Value Reference Range Interpretation Comments STREP PNEUMONIAE Presumptive negative Presumptive negative ANTIGEN (WedWuAKER) for pneumococcal for pneumococcal (test code = 1615) pneumonia - see pneumonia - see comment commen Presumptive negative for pneumococcal pneumonia, suggesting no current or recent pneumococcal infection. Infection due to S. pneumoniae cannot be ruled out since the antigen present in the sample may be below the detection limit of the test.POCT-GLUCOSE [id number] 18:19:48 Test Item Value Reference Range Interpretation Comments POC-GLUCOSE METER 243 mg/dL 70-110 H : TESTED A T [facility] 6720 (CLAUDIO) (test code = [place], 1538) 90[address]: Quarrying Specialist/Techni edgar ID = [id number] for CR UZ, BRADY 2D Echo W/Doppler(CW/PW/Color)2022-02-18 16:51:10Ejection FractionSLEH ECHO HEARTLAB MKCKESSON [facility]AC[facility] CenterPO[facility] [id number] 13:40:08 Test Item Value Reference Range Interpretation Comments POC-GLUCOSE METER 140 mg/dL 70-110 H : TESTED A T [facility] 6720 (CLAUDIO) (test code = [place], 1538) 389[address]: Quarrying Specialist/Techni edgar ID = [id number] for CO RTEZ, TARI SARS-COV2/RT-PCR ([facility])2022-02-18 13:02:31 Test Item Value Reference Range Interpretation Comments SARS-COV2/RT-PCR Negative Negative The SARS-Co V-2 target (test code = nucleic acids a re not 1124408) detected in thi s specimen. Negative result s do not preclude SARS-C oV-2 infection and s hould not be used as the chi e basis for patient managem ent decisions. Nega tive results must be combine d with clinical observ ations, patient history , and epidemiological information. A false negativ e result may occur if a spec imen is improperly yessica ected, transported or handled. This SARS CoV-2 test is a rapid, real-time RT-PC R test intended for th e qualitative detection of nu cleic acid from SARS-CoV-2 in a nasopharyngeal swab specimen collected from individuals suspected of CO VID-19 by their healthcar e provider. This test has been authorized by FDA under an EUA for use by authorized laboratories. This test is only authorized for the duration of the declaration that circumstances exist justifying the authorization of emergency use of in vitro diagnostic tests for detection and/or diagnosis of COVID-19 under Section 564(b)(1) of the Federal Food, Drug and Cosmetic Act, 21 U.S.C. 360bbb-3(b)(1), unless the authorization is terminated or revoked sooner. Fact Sheet for Healthcare Providers: https://www.[employer] m/Documents/Xpert%20Xpress%20SARS%20CoV-2/Fact%20Sheets/302-3802%15OXOJ-GTS-7%20 HEALTHCARE%20PROVIDERS%20FACT%20SHEET.pdf Fact Sheet for Healthcare Patients: https://www.[employer]/Documents/Xpert%20Xp ress%20SARS%20CoV-2/Fact%20Sheets/302-3801%45CJBE-ZRT-1%20PATIENT%20FACT%20SHEET .pdfHEMOGLOBIN [id number] 09:43:51 Test Item Value Reference Range Interpretation Comments HEMOGLOBIN A1C 6.5 % See_Comment H [Automated m essage] ELECTROPHORESIS (BEAKER) The system which (test code = 3811) generated this result transmitted ref erence range: <=5.6%. The reference range was not used to int erpret this result as normal/abnormal . "The A1c is measured using a NGSP-certified method. HbA1c value equal to or greater than 6.5% as thediagnosis cutoff for diabetes. An HbA1c value of 5.7- 6.4% indicates increased risk for diabetes (prediabetes)."Quarrying Specialist ID - ADMRAD, CHEST, 1 VIEW, NON [id number] 08:26:00Reason for exam:->SOBShould this be performed at the bedside?->Yes ALTAGRACIA [facility] VALLEJOName: BILLY FLAHERTY : 1945 Sex: MFINAL REPORT RAD, CHEST, 1 VIEW, NON DEPT INDICATION: SOB COMPARISON: September 30, 2021FINDINGS: Portable frontal view of the chest. IMPRESSION: Support Lines: None Lungs and pleura: No focal lung consolidation or large effusion. No pneumothorax.Heart and mediastinum: Cardiomediastinal silhouette is magnified by technique but without significant change. Additional findings: Osseous struc tures are stable. Signed: Chico Ortiz MDReport Verified Date/Time: 02/18/2022 08:26:10 HEPATIC FUNCTION [id number] 05:50:59 Test Item Value Reference Range Interpretation Comments TOTAL PROTEIN (BEAKER) (test code = 6.4 gm/dL 6.0-8.3 770) ALBUMIN (BEAKER) (test code = 1145) 3.0 g/dL 3.5-5.0 L BILIRUBIN TOTAL (BEAKER) (test code 1.4 mg/dL 0.2-1.2 H = 377) BILIRUBIN DIRECT (BEAKER) (test 0.6 mg/dL 0.1-0.5 H code = 706) ALKALINE PHOSPHATASE (BEAKER) (test 52 U/L 40-150 code = 346) AST (SGOT) (BEAKER) (test code = 45 U/L 5-34 H 353) ALT (SGPT) (BEAKER) (test code = 22 U/L 6-55 347) Quarrying Specialist ID - JACINTO KATTID [id number] 05:50:58 Test Item Value Reference Range Interpretation Comments TRIGLYCERIDES (BEAKER) (test code = 77 mg/dL 540) CHOLESTEROL (BEAKER) (test code = 97 mg/dL 631) HDL CHOLESTEROL (BEAKER) (test code 35 mg/dL = 976) LDL CHOLESTEROL CALCULATED (BEAKER) 47 mg/dL (test code = 633) Triglyceride Reference Range: Low Risk <150 Borderline 150-199 High Risk 200- 499 Very High Risk >=500Cholesterol Reference Range: Low Risk <200 Borderline 200-239 High Risk >240HDL Cholesterol Reference Range: Low Risk >=60 High Risk <40LDL Cholesterol Reference Range: Optimal <100 Near Optimal 100-129 Borderline 130-159 High 160-189 Very High >=190 Quarrying Specialist ID - FAWADDONAVON [id number] 05:50:57 Test Item Value Reference Range Interpretation Comments MAGNESIUM (BEAKER) (test code = 1.6 mg/dL 1.6-2.6 627) Quarrying Specialist ID July CASEY [id number] 05:50:57 Test Item Value Reference Range Interpretation Comments PHOSPHORUS (BEAKER) (test code = 2.9 mg/dL 2.3-4.7 604) Quarrying Specialist ID - JACINTO LBASIC METABOLIC [id number] 05:50:56 Test Item Value Reference Range Interpretation Comments SODIUM (BEAKER) 140 meq/L 136-145 (test code = 381) POTASSIUM 4.4 meq/L 3.5-5.1 (BEAKER) (test code = 379) CHLORIDE (BEAKER) 108 meq/L 98-107 H (test code = 382) CO2 (BEAKER) 22 meq/L 22-29 (test code = 355) BLOOD UREA 33 mg/dL 7-21 H NITROGEN (BEAKER) (test code = 354) CREATININE 1.86 mg/dL 0.57-1.25 H (BEAKER) (test code = 358) GLUCOSE RANDOM 91 mg/dL 70-105 (BEAKER) (test code = 652) CALCIUM (BEAKER) 8.6 mg/dL 8.4-10.2 (test code = 697) EGFR (BEAKER) 38 Interpretatio n of eGFR (test code = mL/min/1.73 values Stage De scription 1092) sq m Result G1 Jayne l or high >=90 G2 Mildly decreased 60-89 G3a Mildl y to moderately 45-5 9 G3b Moderately to s everely 30-44 G4 Severl y decreased 15-29 G5 Kidney failure <15Reported eGF R is based on the CKD-EPI 2021 equation that d oes not use a race coefficientEsti mated GFR is not as accur ate as Creatinine Montserrat romo in predicting glom erular filtration rate . Estimated GFR is not appl icable for dialysis patien ts Quarrying Specialist ID - JACINTO LCBC W/PLT COUNT & AUTO [id number] 05:31:08 Test Item Value Reference Range Interpretation Comments WHITE BLOOD CELL COUNT (BEAKER) 5.6 K/ L 3.5-10.5 (test code = 775) RED BLOOD CELL COUNT (BEAKER) 3.05 M/ L 4.63-6.08 L (test code = 761) HEMOGLOBIN (BEAKER) (test code = 9.3 GM/DL 13.7-17.5 L 410) HEMATOCRIT (BEAKER) (test code = 28.0 % 40.1-51.0 L 411) MEAN CORPUSCULAR VOLUME (BEAKER) 92 fL 79-92 (test code = 753) MEAN CORPUSCULAR HEMOGLOBIN 30.5 pg 25.7-32.2 (BEAKER) (test code = 751) MEAN CORPUSCULAR HEMOGLOBIN CONC 33.2 GM/DL 32.3-36.5 (BEAKER) (test code = 752) RED CELL DISTRIBUTION WIDTH 15.5 % 11.6-14.4 H (BEAKER) (test code = 412) PLATELET COUNT (BEAKER) (test code 44 K/CU MM 150-450 L = 756) MEAN PLATELET VOLUME (BEAKER) 12.1 fL 9.4-12.4 (test code = 754) NUCLEATED RED BLOOD CELLS (BEAKER) 0 /100 WBC 0-0 (test code = 413) NEUTROPHILS RELATIVE PERCENT 81 % (BEAKER) (test code = 429) LYMPHOCYTES RELATIVE PERCENT 9 % (BEAKER) (test code = 430) MONOCYTES RELATIVE PERCENT 10 % (BEAKER) (test code = 431) EOSINOPHILS RELATIVE PERCENT 0 % (BEAKER) (test code = 432) BASOPHILS RELATIVE PERCENT 0 % (BEAKER) (test code = 437) NEUTROPHILS ABSOLUTE COUNT 4.53 K/ L 1.78-5.38 (BEAKER) (test code = 670) LYMPHOCYTES ABSOLUTE COUNT 0.49 K/ L 1.32-3.57 L (BEAKER) (test code = 414) MONOCYTES ABSOLUTE COUNT (BEAKER) 0.53 K/ L 0.30-0.82 (test code = 415) EOSINOPHILS ABSOLUTE COUNT 0.01 K/ L 0.04-0.54 L (BEAKER) (test code = 416) BASOPHILS ABSOLUTE COUNT (BEAKER) 0.01 K/ L 0.01-0.08 (test code = 417) IMMATURE GRANULOCYTES-RELATIVE 0.40 % 0.00-1.00 PERCENT (BEAKER) (test code = 2801) PROTHROMBIN [id number] 05:13:59 Test Item Value Reference Range Interpretation Comments PROTIME (CLAUDIO) 18.1 seconds 11.9-14.2 H (test code = 759) INR (CLAUDIO) (test 1.61 See_Comment [Automat ed message] code = 370) The system [employer] generated this result transmitted ref erence range: <=5.90. The reference range was not used to int erpret this result as normal/abnormal . RECOMMENDED COUMADIN/WARFARIN INR THERAPY RANGESSTANDARD DOSE: 2.0 - 3.0 Includes: PROPHYLAXIS for venous thrombosis, systemic embolization; TREATMENT for venous thrombosis and/or pulmonary embolus.HIGH RISK: Target INR is 2.5-3.5 for patients with mechanical heart valves.2D Echo W/Doppler(CW/PW/Color) 2021-09-30 13:05:06Ejection FractionSLEH ECHO HEARTLAB [facility] Echo W/Doppler(CW/PW/Color)2021-09-30 13:05:06Ejection FractionSLEH ECHO HEARTLAB [facility] Echo W/Doppler(CW/PW/Color)2021-09-30 13:05:06Ejection FractionSLEH ECHO HEARTLAB [facility] W/Doppler(CW/PW/Color) 2021-09-30 13:05:06Ejection FractionSLEH ECHO HEARTLAB [facility], CHEST, 1 VIEW, NON [id number] 07:49:00post- operative day 1Reason for exam:->s/p tavrShould this be performed at the bedside?->[facility] : 1945 Sex: MFINAL REPORT RAD, CHEST, 1 VIEW, NON DEPT INDICATION: s/p tavr COMPARISON: None FINDINGS: Portable frontal view of the chest. IMPRESSION: No focal lung consolidation, pleural effusion or pneumothorax. Cardiomediastinal silhouette is magnified by technique. Intact osseous structures. Signed: Chico Ortiz Verified Date/Time: 09/30/2021 07:49:52 POC-Glucose [id number] 07:07:37 Test Item Value Reference Range Interpretation Comments POC-Glucose Meter (test 128 mg/dL 70-110 H : TE STED AT [facility] code = 1538) [address] [place] [address], 7[address]: Quarrying Specialist/Techni edgar ID = [id number] for FOWLERSALIMA WHITAKERE Lab Interpretation (test Abnormal code = 02789-5) [facility]-Glucose [id number] 07:07:37 Test Item Value Reference Range Interpretation Comments POC-Glucose Meter (test 128 mg/dL 70-110 H : TE STED AT [facility] code = 1538) [address] [place] [address], [address]: Quarrying Specialist/Techni edgar ID = [id number] for FOWLER-MADELYN MYNOR Lab Interpretation (test Abnormal code = 28185-7) [facility] [id number] 07:07:37 Test Item Value Reference Range Interpretation Comments POC-Glucose Meter (test 128 mg/dL 70-110 H : TE STED AT [facility] code = 1538) [address] [place] [address], [address]: Quarrying Specialist/Techni edgar ID = [id number] for FOWLER-MADELYN MYNOR Lab Interpretation (test Abnormal code = 40399-9) [facility]-GLUCOSE [id number] 07:07:37 Test Item Value Reference Range Interpretation Comments POC-GLUCOSE METER 128 mg/dL 70-110 H : TESTED A T [facility] 6720 (BEAKER) (test code = [facility], 1538) [address]: Quarrying Specialist/Techni edgar ID = [id number] for MYNOR OSORIO BASIC METABOLIC [id number] 05:24:00 Test Item Value Reference Range Interpretation [...] not appl icable for dialysis patien ts Quarrying Specialist ID - PIAYA LCBC (HEMOGRAM ONLY)2021-09-30 04:59:49 [...] WBC 0-0 (test code = 413) POCT-GLUCOSE [id number] 22:03:55 Test Item Value Reference Range Interpretation Comments POC-GLUCOSE METER 162 mg/dL 70-110 H : Notified RN/MD: ([facility]) (test code = TESTED AT [place] [address] 1534) [facility], [address]: Quarrying Specialist/Techni edgar ID = [id number] for SA JOVI GODINEZ Transesophageal [id number] 18:57:01Ejection FractionSLE ECHO HEARTLAB [facility] [id number] 18:57:01Ejection FractionSLE ECHO HEARTLAB MKCKESSON [facility] [id number] 18:57:01Ejection FractionSLE ECHO HEARTLAB MKCKESSON [facility] [id number] 18:57:01Ejection FractionSLE ECHO HEARTLAB MKCKESSON [facility] ACTIVATED CLOTTING [id number] 16:21:30 Test Item Value Reference Range Interpretation Comments Activated Clotting Time 144 sec : 74 -137 seconds, (test code = 3184-9) Baselin e: TESTED AT [facility] [address] [place] [address], [address]: Quarrying Specialist/Techni edgar ID = [id number] for Go , [place] [facility] ACTIVATED CLOTTING [id number] 16:21:30 Test Item Value Reference Range Interpretation Comments Activated Clotting Time 144 sec : 74 -137 seconds, (test code = 3184-9) Baselin e: TESTED AT [address], [address]: Quarrying Specialist/Techni edgar ID = [id number] for Go , [place] [facility] ACTIVATED CLOTTING [id number] 16:21:30 Test Item Value Reference Range Interpretation Comments Activated Clotting Time 144 sec : 74 -137 seconds, (test code = 3184-9) Baselin e: TESTED AT [address], [address]: Quarrying Specialist/Techni edgar ID = [id number] for Go , [place] [facility] ACTIVATED CLOTTING [id number] 16:21:30 Test Item Value Reference Range Interpretation Comments Activated Clotting Time 144 sec : 74 -137 seconds, (test code = 3184-9) Baselin e: TESTED AT [address], [address]: Quarrying Specialist/Techni edgar ID = [id number] for Go , [place] [facility] CenterPOCT-[id number] 16:21:30 Test Item Value Reference Range Interpretation Comments ACTIVATED CLOTTING TIME 144 sec : 74 -137 seconds, (BEAKER) (test code = Rian ne: TESTED AT 441) [address], 7[address] 30: Quarrying Specialist/Techni edgar ID = [id number] for Go , [place] POCT-GLUCOSE [id number] 16:13:14 Test Item Value Reference Range Interpretation Comments POC-GLUCOSE METER 120 mg/dL 70-110 H : TESTED A T [place] [address] (BEAKER) (test code = [facility], 1538) [address]: Quarrying Specialist/Techni edgar ID = [id number] for BA TTAD, LUCÍA Prepare [id number] 15:30:00 Test Item Value Reference Range Interpretation Comments CROSSMATCH (test code = COMPATIBLE 2263) Unit ABO (test code = O Pos 9676160) UNIT NUMBER (test code = [id number] 934-0) Status (test code = RETURNED FROM ISSUE 0951970) Blood Bank Product (test RED BLOOD CELLS code = 2263) PRODUCT CODE (test code = B0573E57 933-2) [facility] [id number] 15:30:00 Test Item Value Reference Range Interpretation Comments CROSSMATCH (test code = COMPATIBLE 2264) Unit ABO (test code = O Pos 3609541) UNIT NUMBER (test code = [id number] 934-0) Status (test code = RETURNED FROM ISSUE 0401775) Blood Bank Product (test RED BLOOD CELLS code = 2263) PRODUCT CODE (test code = F2631Y44 933-2) [facility] [id number] 15:30:00 Test Item Value Reference Range Interpretation Comments CROSSMATCH (test code = COMPATIBLE 2264) Unit ABO (test code = O Pos 7547839) UNIT NUMBER (test code = [id number] 934-0) Status (test code = RETURNED FROM ISSUE 7336991) Blood Bank Product (test RED BLOOD CELLS code = 2263) PRODUCT CODE (test code = S9436R97 933-2) [facility] [id number] 15:30:00 Test Item Value Reference Range Interpretation Comments CROSSMATCH (test code = COMPATIBLE 2264) Unit ABO (test code = O Pos 2119337) UNIT NUMBER (test code = [id number] 934-0) Status (test code = RETURNED FROM ISSUE 0145267) Blood Bank Product (test RED BLOOD CELLS code = 2263) PRODUCT CODE (test code = S0751G43 933-2) [facility]PO[facility]-[id number] 15:15:20 Test Item Value Reference Range Interpretation Comments ACTIVATED CLOTTING TIME 184 sec : 74 -137 seconds, (BEAKER) (test code = Baseli ne: TESTED AT 441) [address], [facility] 30: Quarrying Specialist/Techni edgar ID = [id number] for QUINCY CHURCHILL [id number]-[id number] 14:20:35 Test Item Value Reference Range Interpretation Comments ACTIVATED CLOTTING TIME 277 sec : 74 -137 seconds, (BEAKER) (test code = Baseli ne: TESTED AT 441) [address], [facility] 30: Quarrying Specialist/Techni edgar ID = [id number] for NAUN CHURCHILLRA B-TYPE NATRIURETIC FACTOR (BNP)2021-09-23 16:28:06 Test Item Value Reference Range Interpretation Comments B-TYPE NATRIURETIC PEPTIDE (BEAKER) 91 pg/mL 0-100 (test code = 700) Quarrying Specialist ID - ADMINCOMPREHENSIVE METABOLIC [id number] 15:51:41 Test Item Value Reference Range Interpretation [...] not as accur ate as Creatinine Montserrat romo in predicting glom erular filtration rate . Estimated GFR is not appl icable for dialysis patien ts Quarrying Specialist ID - ADMINCBC W/PLT COUNT & AUTO [id number] 15:40:59 Test Item Value Reference Range Interpretation [...] PERCENT (BEAKER) (test code = 2801) PROTHROMBIN TIME/[id number] 15:38:16 Test Item Value Reference Range Interpretation Comments PROTIME (BEAKER) 13.5 seconds 11.9-14.2 (test code = 759) INR (BEAKER) (test 1.05 See_Comment [Automat ed message] code = 370) The system [employer] generated this result transmitted ref erence range: <=5.90. The reference range was not used to int erpret this result as normal/abnormal . RECOMMENDED COUMADIN/WARFARIN INR THERAPY RANGESSTANDARD DOSE: 2.0 - 3.0 Includes: PROPHYLAXIS for venous thrombosis, systemic embolization; TREATMENT for venous thrombosis and/or pulmonary embolus.HIGH RISK: Target INR is 2.5-3.5 for patients with mechanical heart valves.COVID 19 Asymptomatic IH [id number] 12:19:00 Test Item Value Reference Range Interpretation [...] or waivedcomplexit y tests. 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 [facility] GLOMERULAR FILTRATION 45 ML/MIN Perfor med by RATE POC (test code = [facility] - CT ANGIO [id number] 00:00:00 [facility] : 1945 Sex: MName: BILLY FLAHERTY [facility] : 1945 Age/S: 76 / M [address] [place] [address] Blvd Unit#: [id number] Loc: [place] [address] Phys: Neetu Shah [facility] Acct: [id number] Dis Date: Status: REG CLI PHONE #: [phone] Exam Date: 08/24/2021 1111 FAX #: [phone] Reason: AORTIC STENOSISEXAMS: CPT CODE: [id number] CT ANGIO CHEST 02962 PROCEDURE INFORMATION: Exam: CTA Heart and CoronaryArteries Without and With Contrast Exam date and time: 08/24/2021 10:42 AM Age: 76 years old Clinicalindication: Other: Aortic stenosis TECHNIQUE: Imaging protocol: Computed tomographic angiography of the heart, coronary arteries and bypass grafts (when present) without and with contrast including 3D image postprocessing (including evaluation of cardiac structure and morphology, assessment of cardiacfunction, and evaluation of venous structures, if performed). 3D rendering (Not supervised by radiologist): MIP and/or 3D reconstructed images were created by the technologist. Radiation optimization: A ll CT scans at this facility use at [...] was estimated at 26.5 mm with an areaof 560 mm2 and a perimeter of 89 [...] PAGE 1 Signed Report (CONTINUED) Name: BILLY FLAHERTY [facility] : 1945 Age/S: 76 / M [address] [place] [address] Blvd Unit #: [id number] Loc: [place] [address] Phys: Neetu Shah [facility] Acct: [id number] Dis Date: Status: REG CLI PHONE #: [phone] Exam Date: 08/24/2021 1111 FAX #: [phone] Reason: AORTIC STENOSIS EXAMS: CPT CODE: [id number] CT ANGIO CHEST 17325 (Continued) Incidental note was made of mild [...] dose is matched to clinical indication); or itera tive reconstruction. Contrast material: ISOVUE 370; Contrast volume: 100 ml; Contrast route: INTRAVENOUS (IV); COMPARISON: No relevant prior studies available. FINDINGS: The ascending aorta is free ofsignificant atherosclerotic calcification. Transverse aortic arch demonstrates a 3 vessel arch configuration with minimal atherosclerotic calcification. The descending thoracic aorta is free of significant atherosclerotic disease. Within the abdominal aorta the celiac trunk and superior mesenteric arteries are patent. There are single renal arteries bilaterally which are patent. The inferior mesenteric artery is patent. There PAGE 2 Signed Report (CONTINUED) Name: BILLY FLAHERTY [facility] : 1945 Age/S: 76 / M [address] [place], [place] [address]vd Unit #: [id number] Loc: [place] [address] Phys:YahirNeetu martinez [facility] Acct: [id number] Dis Date: Status: REG CLI PHONE #: [phone] Exam Date: 08/24/2021 1111 FAX #: [phone] Reason: AORTIC STENOSIS EXAMS: CPT CODE: [id number] CT ANGIO CHEST 28669 (Continued) is infrarenal aorta demonstrate minimal atherosclerotic calcification. The distal aorta measures 16 mm. The right common iliac artery is patent with minimal atherosclerotic disease. Theright hypogastric artery is patent. The right external iliac artery is patent. There is minimal posterior plaque to the right common femoral artery. There is a preserved bifurcation to the right commonfemoral artery. The left common iliac artery demonstrates [...] made of a small posterior splenule. Adrenal glands:Unremarkable. No mass. Kidneys and ureters: Unremarkable. No [...] PAGE 3 Signed Report (CONTINUED) Name: BILLY FLAHERTY [facility] : 1945 Age/S: 76 / M [address] [place], [place] [address] Unit #: [id number] Loc: [place] [address] Phys: Neetu Shah Acct: [id number] Dis Date: Status: REG CLI PHONE #: [phone] Exam Date: 08/24/2021 1111FAX #: [phone] Reason: AORTIC STENOSIS EXAMS: CPT CODE: [id number] CT ANGIO CHEST 76444 (Continued) at 2330 Reported and signed by: Trevor Villarreal M.D CC: Neetu Shah; [facility] Hospitalmaggie ECKERT; Nawaf Dotson MD Technologist:Russell Jimenez, RT(R)(CT) CTDI: DLP: Trnscb Date/Time: 08/24/2021 (2330) [email or web address] Orig Print D/T: S: 08/24/2021 (9190) PAGE 4 Signed Report- CTA ABD PEL W [id number] 00:00:00 [facility] : 1945 Sex: MName: BILLY FLAHERTY [facility] [place] : 1945 Age/S: 76 / M [address] [place] [address] Blvd Unit #: [id number] Loc: [place] [address] Phys: Neetu Shah [facility] Acct: [id number] Dis Date: Status: REG CLI PHONE #: [phone] Exam Date: 08/24/2021 1110 FAX #: [phone] Reason: AORTIC STENOSIS EXAMS: CPT CODE: [id number] CTA ABD PEL W CONT 76395 PROCEDURE INFORMATION: Exam: CTA Heart and Coronary [...] main height measured approximately 19 mm. Right coronaryheight measured 15 mm. CARDIAC: Evaluation of the [...] PAGE 1 Signed Report (CONTINUED) Name: BILLY FLAHERTY [facility] : 1945 Age/S: 76 / M [address] [place] [address] Blvd Unit #: [id number] Loc: [place] [address] Phys: YahirtommylavernNeetu [facility] Acct: [id number] Dis Date: Status: REG CLI PHONE #: [phone] Exam Date: FAX #: [phone] Reason: AORTIC STENOSIS EXAMS: CPT CODE: [id number] CTA ABD PEL W CONT 90034 (Continued) Incidental note was made of mild [...] aortic arch demonstrates a 3 vessel arch co nfiguration with minimal atherosclerotic calcification. The descending thoracic aorta is free of significant atherosclerotic disease. Within the abdominal aorta the celiac trunk and superior mesentericarteries are patent. There are single renal arteries bilaterally which are patent. The inferior mesenteric artery is patent. There PAGE 2 Signed Report (CONTINUED) Name: BILLY FLAHERTY [facility] : 1945 Age/S: 76 / M [address] [place] [address] Blvd Unit #: [id number] Loc: [place] [address] Phys: YahirtommylavernNeetu [facility] Acct: [id number] Dis Date: Status: REG CLI PHONE #: [phone] Exam Date: 08/24/2021 1110 FAX #: [phone] Reason: AORTIC STENOSIS EXAMS: CPT CODE: [id number] CTA ABD PEL W CONT 84524 (Continued) is infrarenal aorta demonstrate minimal atherosclerotic [...] and ureters: Unremarkable. No solid mass. No hydronephrosis.Stomach and bowel: Unremarkable. No obstruction. No mucosal thickening. Appendix: No evidence of appendicitis. Intraperitoneal space: Unremarkable. No free air. No significant fluid collection. Urinarybladder: Unremarkable. No mass. Reproductive: Unremarkable as visualized. Lymph nodes: Unremarkable.No enlarged lymph nodes. Bones/joints: Mild osteopenia with degenerative changes of the bony pelvis and lumbar spine. IMPRESSION: Unremarkable CTA chest, abdomen, and pelvis. Minimal atherosclerotic calcification to the distal aorta and common iliac arteries. Common femoral and iliac arteries are patent and well preserved. PAGE 3 Signed Report (CONTINUED) Name: BILLY FLAHERTY [facility] :1945 Age/S: 76 / M [address] [place] [address] Blvd Unit #: [id number] Loc: [place] [address] Phys: Neetu Shah Acct: [id number] Dis Date: Status: REG CLI PHONE #: [phone] Exam Date: 08/24/2021 1110 FAX #: [phone] Reason: AORTIC STENOSIS EXAMS: CPT CODE: [id number] CTA ABD PEL W CONT 76447 (Continued) at 2330 Reported and signed by: Trevor Villarreal M.D CC: Neetu Garcia Yann Diazmaggie Dotson MD Technologist:Russell Jimenez RT(R)(CT) CTDI: DLP: Trnscb Date/Time: 08/24/2021 (2329) [email or web address] Orig Print D/T: S: 08/24/2021 (6488) PAGE 4 Signed Report- CTA HEART W CN ART/[id number] 00:00:00 [facility] : 1945 Sex: MName: BILLY FLAHERTY [facility] : 1945 Age/S: 76 / M [address] [place] [address] Unit #: [id number] Loc: [place] [address] Phys: Neetu Shah [facility] Acct: [id number] Dis Date: Status: REG CLI PHONE #: [phone] Exam Date: 08/24/2021 1110 FAX #: [phone] Reason: EXAMS: CPT CODE: [id number] CTA HEART W CN ART/GRAFTS 58188 PROCEDURE INFORMATION: Exam: CTA Heart and Coronary [...] PAGE 1 Signed Report (CONTINUED) Name: BILLY FLAHERTY [facility] : 1945ge/S: 76 / M [address] [place] [address] Blvd Unit #: [id number] Loc: [place] [address] Phys: YahirtommylavernCarlitos Acct: [id number] Dis Date: Status: REG CLI PHONE #: [phone] Exam Date: 08/24/2021 1110 FAX #: [phone] Reason: EXAMS: CPT CODE: [id number] CTA HEART W CN ART/GRAFTS 72501 (Continued) Incidental note was made of mild [...] stenosis. Mild to moderate calcification within mitral valve.Aortic valve measurements as estimated above. Evaluation of the coronary vessels was limited. PROCEDURE INFORMATION: Exam: CTA Chest Without And With Contrast CTA Abdomen and Pelvis Without And With Contrast Exam date and time: 08/24/2021 10:42 AM Age: 76 years old Clinical indication: Other: Aortic stenosis TECHNIQUE: Imaging protocol: Computed tomographic angiography of thechest without and with contrast. Computed tomographic angiography [...] arch demonstrates a 3 vessel arch configuration withminimal atherosclerotic calcification. The descending thoracic aorta is free of significant atherosclerotic disease. Within the abdominal aorta the celiac trunk and superior mesenteric arteries are patent. There are single renal arteries bilaterally which are patent. The inferior mesenteric artery is patent. There PAGE 2 Signed Report (CONTINUED) Name: BILLY FLAHERTY [facility] : 1945 Age/S: 76 / M [address] [place] [address] Blvd Unit #: [id number] Loc: [facility] JONAH [address] Phys: YahirtommylavernNeetu [facility] Acct: [id number] Dis Date: Status: REG CLI PHONE #: [phone] Exam Date: 08/24/2021 1110 FAX #: [phone] Reason: EXAMS: CPT CODE: [id number] CTA HEART W CN ART/GRAFTS 84507 (Continued) is infrarenal aorta demonstrate minimal atherosclerotic calcification. The distal aorta measures 16 mm. The right common iliac artery is patent with minimal atherosclerotic disease. The right hypogastric artery is patent. The right external iliac artery is patent. There is minimal posterior plaque to the right common femoral artery. There is a preserved bifurcation to the right common femoral artery.The left common iliac artery demonstrates minimal atherosclerotic calcification and is patent. The left hypogastric artery is patent. There is minimal tortuosity to a patent left external iliac artery.The femoral artery is patent with a preserved [...] a small posterior splenule. Adrenal glands: Unremarkable. Nomass. Kidneys and ureters: Unremarkable. No solid mass. No hydronephrosis. Stomach and bowel: Unremarkable. No obstruction. No mucosal thickening. Appendix: No evidence of appendicitis. Intraperitonealspace: Unremarkable. No free air. No significant fluid collection. Urinary bladder: Unremarkable. Nomass. Reproductive: Unremarkable as visualized. Lymph nodes: Unremarkable. No enlarged lymph nodes. Bones/joints: Mild osteopenia with degenerative changes of the bony pelvis and lumbar spine. IMPRESSION: Unremarkable CTA chest, abdomen, and pelvis. Minimal atherosclerotic calcification to the distalaorta and common iliac arteries. Common femoral and iliac arteries are patent and well preserved. PAGE 3 Signed Report (CONTINUED) Name: BILLY FLAHERTY [facility] : 1945 Age/S: 76 / M [address] [place] [address] Blvd Unit #: [id number] Loc: [place] [address] Phys: Neetu Shah Acct: [id number] Dis Date: Status: REG CLI PHONE #: [phone] Exam Date: 08/24/2021 1110 FAX #: [phone] Reason: EXAMS: CPT CODE: [id number] CTA HEART W CN ART/GRAFTS 14421 (Continued) at 2330 Reported and signed by: Trevor Villarreal M.D CC: Neetu Shah; Yann Diazmaggie Dotson MD Technologist:RT Hodan(R)(CT) CTDI: DLP: Trnscb Date/Time: 08/24/2021 (2329) [email or web address] Orig Print D/T: S: 08/24/2021 (2329) PAGE 4 Signed Report
[2022-04-08 01:31] LABS: Protime INR 1.6
[2022-04-08 01:35] LABS: Absolute Lymphocytes (CBC) 0.7 K/uL (0.7-4.9); Hematocrit 23.9 % (39.6-49.0); MCV 83.9 fL (80-100); MPV 8.1 fL (7.6-11.3); RBC Red Blood Cell Count 2.84 M/uL (4.33-5.43)
[2022-04-08 01:42] LABS: Albumin 2.3 g/dL (3.4-5.0); Bilirubin Total 0.5 mg/dL (0.2-1.0); Potassium 3.7 mmol/L (3.5-5.1); Protein, Total 7.7 g/dL (6.4-8.2)
[2022-04-08 02:03] LABS: SARS-COV-2 RT PCR NEGATIVE (NEGATIVE)
[2022-04-08] MEDS ORDERED: NA CHLORIDE 0.9% 500 ML ONE (02:50)
[2022-04-08] MEDS ORDERED: HYDROCODONE/APAP 5/325 MG TAB ONE (03:37)
[2022-04-08 03:51] LABS: Thyroid Stimulating Hormone 0.934 uIU/mL (0.358-3.740)
--- NOTE | 2022-04-08 04:22 | EDPHYS ---
Physician Documentation [facility] Name: Dwight Flaherty Age: 77 yrs Sex: Male : 1945 Arrival Date: 04/07/2022 Time: 23:41 Bed 6 Private MD: ED Physician Germain Padron HPI: 04/08 01:26 This 77 yrs old Male presents to ER via EMS with complaints of fever, weakness. rn 01:26 The patient reports fever, that was measured at 101 degrees Fahrenheit. Onset: The rn symptoms/episode began/occurred 1 month(s) ago. Modifying factors: there are no obvious modifying factors. Associated signs and symptoms: Pertinent negatives: abdominal pain, altered mental status, cough, skin rash, swelling, vomiting. Severity of symptoms: At their worst the symptoms were moderate in the emergency department the symptoms are unchanged. The patient has experienced similar episodes in the past. The patient has been recently been admitted at [facility]. Pt reports intermittent fever for > 1 month, 2 admission without clear etiology or diagnosis. Was in hospital for long time, on abx, and sent home with PICC line and abx. No cough/sob/abd pain/vomiting/diarrhea. NO skin changes. Reports blood cultures were positive but CTs and ECHO normal. . Historical: - Allergies: 00:02 No Known Allergies; jb4 - PMHx: 00:02 Asbestos Scarring - Chronic Cough; Pneumonia; Irregular heart rate; Hypertension; jb4 psoriasis; GERD; Diabetes - IDDM; - PSHx: 00:02 Florian Knee replacement; Cholecystectomy; carpal tunnel; heart valve replacement; jb4 - Immunization history:: Adult Immunizations up to date. - Social history:: Smoking status: Patient denies any tobacco usage or history of. - Family history:: not pertinent. - Hospitalizations: : No recent hospitalization is reported. ROS: 01:26 Constitutional: + fever Cardiovascular: Negative for chest pain, palpitations, and rn edema, Respiratory: Negative for shortness of breath, cough, wheezing, and pleuritic chest pain, Abdomen/GI: Negative for abdominal pain, nausea, vomiting, diarrhea, and constipation, Back: Negative for injury and pain, MS/Extremity: Negative for injury and deformity, Skin: Negative for injury, rash, and discoloration, Neuro: Negative for headache, numbness, tingling, and seizure. Exam: 01:26 Constitutional: This is a well developed, well nourished patient who is awake, alert, rn and in no acute distress. Head/Face: Normocephalic, atraumatic. Cardiovascular: Regular rate and rhythm. No pulse deficits. Respiratory: No increased work of breathing, no retractions or nasal flaring. Abdomen/GI: Soft, non-tender Skin: Warm, dry MS/ Extremity: Pulses equal, no cyanosis. Neurovascular intact. Full, normal range of motion. Equal circumference. Neuro: Awake and alert, GCS 15 03:00 ECG was reviewed by the Attending Physician. rn Vital Signs: 04/07 23:56 BP 120 / 57; Pulse 108; Resp 20; Temp 99.0(O); Pulse Ox 97% on R/A; Weight 157.85 kg jb4 (R); Height 6 ft. 8 in. (203.20 cm) (R); Pain 10/06; 04/08 01:15 BP 133 / 61; Pulse 94; Resp 14; Pulse Ox 94% on R/A; jb4 02:45 BP 138 / 93; Pulse 96; Resp 15; Pulse Ox 94% on R/A; jb4 03:11 Temp 98.1(O); jb4 04:00 BP 148 / 67; Pulse 99; Resp 15; Pulse Ox 93% on R/A; jb4 05:00 BP 142 / 70; Pulse 98; Resp 11; Pulse Ox 92% on R/A; jb4 06:00 BP 149 / 80; Pulse 105; Resp 20; Pulse Ox 97% on R/A; jb4 07:00 BP 156 / 77; Pulse 99; Resp 16; Pulse Ox 94% on R/A; jb4 04/07 23:56 Body Mass Index 38.23 (157.85 kg, 203.20 cm) jb4 MDM: 04/07 23:47 Patient medically screened. rn 04/08 02:42 Differential diagnosis: viral Infection, bacterial infection, pneumonia UTI, rn gastroenteritis, bacteremia. Data reviewed: vital signs, nurses notes, lab test result(s), and as a result, I will admit patient. ED course: Pt with persistent fever despite 2 recent admission and 2-3 weeks of IV abx. No source identified on exam or history at this time. Pt reports neg MILTON at [facility] and completed Abx at home through PICC. TOld had positive blood cultures and treated based on susceptibility. CXR clear. Denies abd pain /vomiting/diarrhea/bleeding. Reports chronic anemia and has been on iron, told during hospitalization that was anemic, but not bleeding so no transfusion. No evidence of joint infection. No evidence of cellulitis. Will admit to hospitalist service for persistent fever of unknown origin for further evaluation/observation. . 03:22 ED course: reports decreased fluid intake lately, and generalized weakness has rn worsened over last 2 weeks but started to lose strength since admission. . 04:20 Consideration of Admission/Observation Patient was admitted/placed on observation. rn Management of patient was discussed with the following: Hospitalist: Management and case discussed with hospitalist, admitting more for weakness as this is family's main concern. . Counseling: I had a detailed discussion with the patient and/or guardian regarding: the historical points, exam findings, and any diagnostic results supporting the discharge/admit diagnosis, lab results, radiology results, the need for further work-up and treatment in the hospital. Response to treatment: the patient's symptoms have mildly improved after treatment, and as a result, I will admit patient. 04:45 ED course: Pt denies any GI bleed, and family confirm has been anemic for sometime, rn seen by Dr. Diaz last week and told still anemic, told to continue his iron supplementation. . 04/07 23:56 Order name: Blood Culture Adult (2) rn 04/07 23:56 Order name: CBC with Diff; Complete Time: 02:11 rn 04/07 23:56 Order name: CMP; Complete Time: 02:11 rn 04/07 23:56 Order name: Lactate w/ 2H reflex if indic.; Complete Time: 02:11 rn 04/07 23:56 Order name: Protime (+inr); Complete Time: 02:11 rn 04/07 23:56 Order name: Ptt, Activated; Complete Time: 02:11 rn 04/07 23:56 Order name: Urine Culture rn 04/07 23:56 Order name: Urine Microscopic Only; Complete Time: 05:16 rn 04/07 23:56 Order name: Chest Single View XRAY rn 04/07 23:56 Order name: COVID-19/FLU A+B; Complete Time: 02:11 rn 04/08 03:23 Order name: TSH; Complete Time: 04:03 rn 04/08 03:23 Order name: T4 Free; Complete Time: 04:03 rn 04/08 04:53 Order name: Urine Dipstick-Ancillary; Complete Time: 05:16 EDMS 04/08 07:30 Order name: Glucose, Ancillary Testing EDMS 04/07 23:56 Order name: EKG; Complete Time: 23:57 rn 04/07 23:56 Order name: Accucheck; Complete Time: 00:32 rn 04/07 23:56 Order name: Cardiac monitoring; Complete Time: 00:32 rn 04/07 23:56 Order name: EKG - Nurse/Tech; Complete Time: 00:32 rn 04/07 23:56 Order name: IV Saline Lock - Large Bore; Complete Time: 01:09 rn 04/07 23:56 Order name: Labs collected and sent; Complete Time: 01:09 rn 04/07 23:56 Order name: O2 Per Protocol; Complete Time: 00:32 rn 04/07 23:56 Order name: O2 Sat Monitoring; Complete Time: 00:32 rn 04/07 23:56 Order name: Vital Signs; Complete Time: 00:32 rn EC:00 Rate is 98 beats/min. Rhythm is regular. QRS is positive in lead I and negative in lead rn aVF. NE interval is normal. QRS interval is normal. QT interval is normal. No Q waves. T waves are Normal. No ST changes noted. Clinical impression: NSR w/ Non-specific ST/T Changes. Interpreted by me. Reviewed by me. Administered Medications: 02:50 Drug: NS 0.9% 500 ml Route: IV; Rate: bolus; Site: right antecubital; jb4 07:28 Follow up: Response: No adverse reaction; IV Status: Completed infusion; IV Intake: ll1 500ml 03:37 Drug: HYDROcodone-acetaminophen 5 mg-325 mg 1 tabs Route: PO; jb4 05:08 Follow up: Response: No adverse reaction; Marked relief of symptoms jb4 Disposition Summary: 04/08/22 04:21 Hospitalization Ordered Hospitalization Status: Observation rn Provider: Matthew Strong rn Condition: Stable rn Problem: an ongoing problem rn Symptoms: have improved rn Bed/Room Type: Standard rn Location: Telemetry/MedSur (observation)(04/08/22 10:22) dw Room Assignment: 217(04/08/22 10:22) dw Diagnosis - Muscle weakness (generalized) rn - Dehydration rn - Fever, unspecified rn Forms: - Medication Reconciliation Form rn - SBAR form rn Signatures: Dispatcher [employer] EDMS Rebeca Hope RN RN Maritza Javier RN RN Germain Elaine MD MD rn Bryson, James RN RN Hollie Bravo PA-C PA-C sb4 Lewis, Lynsay RN ll1 Corrections: (The following items were deleted from the chart) 05:42 04:21 Telemetry/MedSurg (observation) rn 05:42 04:21 rn 10:22 05:42 [facility] ER HOLD [facility] 10:22 05:42 ERHOLD- mw dw
--- NOTE | 2022-04-08 04:22 | ER ---
[facility] Name: Dwight Flaherty Age: 77 yrs Sex: Male : 1945 Arrival Date: 04/07/2022 Time: 23:41 Bed 6 Private MD: Diagnosis: Muscle weakness (generalized);Dehydration;Fever, unspecified Presentation: 04/07 23:56 Chief complaint: EMS states: Pt reports fever off and on since . His family jb4 recorded a temp of 101.6 at home and gave tylenol. It was 8.1 upon EMS arrival. BGl of 249, Given 100ml on NS via 18g IV in the right forearm. Coronavirus screen: At this time, the client does not indicate any symptoms associated with coronavirus-19. Ebola Screen: No symptoms or risks identified at this time. Initial Sepsis Screen: Does the patient meet any 2 criteria? HR > 90 bpm. Yes Does the patient have a suspected source of infection? No. Patient's initial sepsis screen is negative. Risk Assessment: Do you want to hurt yourself or someone else? Patient reports no desire to harm self or others. Onset of symptoms was February 20, 2022. Transition of care: patient was not received from another setting of care. 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 - Social history:: Smoking status: Patient denies any tobacco usage or history of. - Family history:: not pertinent. - Hospitalizations: : No recent hospitalization is reported. Screenin:27 [facility] ED Fall Risk Assessment (Adult) History of falling in the last 3 months, ll1 including since admission Yes- physiologic fall (2 pts) Impaired Gait Yes (1 pt) Mobility Assist Device Used Yes (1 pt) Score/Fall Risk Level 3 or more points = High Risk Oriented to surroundings, Maintained a safe environment, Educated pt \T\ family on fall prevention, incl call for assistance when getting out of bed, Hourly rounding (assess needs \T\ fall precautionary measures) done, Implemented a Fall Risk Plan of Care, Utilized family, sitter, or virtual retail loss prevention specialist as indicated. Abuse screen: Denies threats or abuse. Nutritional screening: No deficits noted. Tuberculosis screening: No symptoms or risk factors identified. Assessment: 00:04 General: Appears in no apparent distress. uncomfortable, Behavior is calm, cooperative, jb4 appropriate for age. Pain: Complains of pain in Generalized body aches. Neuro: Level of Consciousness is awake, alert, obeys commands, Oriented to person, place, time, situation. Cardiovascular: Patient's skin is warm and dry. Respiratory: Airway is patent Respiratory effort is even, unlabored, Respiratory pattern is regular, symmetrical. GI: No signs and/or symptoms were reported involving the gastrointestinal system. : No signs and/or symptoms were reported regarding the genitourinary system. EENT: No signs and/or symptoms were reported regarding the EENT system. Derm: Skin is intact, Skin is pink, warm \T\ dry. Musculoskeletal: Circulation, motion, and sensation intact. Range of motion: intact in all extremities. 01:00 Reassessment: Patient appears in no apparent distress at this time. Patient and/or jb4 family updated on plan of care and expected duration. Pain level reassessed. Patient is alert, oriented x 3, equal unlabored respirations, skin warm/dry/pink. 02:00 Reassessment: Patient appears in no apparent distress at this time. Patient and/or jb4 family updated on plan of care and expected duration. Pain level reassessed. Patient is alert, oriented x 3, equal unlabored respirations, skin warm/dry/pink. 02:51 Reassessment: Patient appears in no apparent distress at this time. Patient and/or jb4 family updated on plan of care and expected duration. Pain level reassessed. Patient is alert, oriented x 3, equal unlabored respirations, skin warm/dry/pink. Pt requesting something for pain. provider notified. 04:07 Reassessment: Patient appears in no apparent distress at this time. Patient and/or jb4 family updated on plan of care and expected duration. Pain level reassessed. Patient is alert, oriented x 3, equal unlabored respirations, skin warm/dry/pink. 05:00 Reassessment: Patient appears in no apparent distress at this time. Patient and/or jb4 family updated on plan of care and expected duration. Pain level reassessed. Patient is alert, oriented x 3, equal unlabored respirations, skin warm/dry/pink. 06:00 Reassessment: Pt resting in bed with even and unlabored respirations. No s/s of pain or jb4 distress noted. 07:00 Reassessment: Patient appears in no apparent distress at this time. No changes from jb4 previously documented assessment. Patient and/or family updated on plan of care and expected duration. Pain level reassessed. Vital Signs: 04/07 23:56 BP 120 / 57; Pulse 108; Resp 20; Temp 99.0(O); Pulse Ox 97% on R/A; Weight 157.85 kg jb4 (R); Height 6 ft. 8 in. (203.20 cm) (R); Pain 8/10; 04/08 01:15 BP 133 / 61; Pulse 94; Resp 14; Pulse Ox 94% on R/A; jb4 02:45 BP 138 / 93; Pulse 96; Resp 15; Pulse Ox 94% on R/A; jb4 03:11 Temp 98.1(O); jb4 04:00 BP 148 / 67; Pulse 99; Resp 15; Pulse Ox 93% on R/A; jb4 05:00 BP 142 / 70; Pulse 98; Resp 11; Pulse Ox 92% on R/A; jb4 06:00 BP 149 / 80; Pulse 105; Resp 20; Pulse Ox 97% on R/A; jb4 07:00 BP 156 / 77; Pulse 99; Resp 16; Pulse Ox 94% on R/A; jb4 04/07 23:56 Body Mass Index 38.23 (157.85 kg, 203.20 cm) jb4 ED Course: 04/07 23:41 Patient arrived in ED. kl 23:47 Germain Padron MD is Attending Physician. rn 23:56 Duran Mixon, PUMA is Primary Nurse. jb4 04/08 00:02 Triage completed. jb4 00:02 Arm band placed on right wrist. jb4 00:31 Chest Single View XRAY In Process Unspecified. EDMS 01:01 Blood Culture Adult (2) Sent. jb4 01:01 CBC with Diff Sent. jb4 01:01 Lactate w/ 2H reflex if indic. Sent. jb4 01:01 Protime (+inr) Sent. jb4 01: Ptt, Activated Sent. jb4 01:09 CMP Sent. jb4 01:19 COVID-19/FLU A+B Sent. jb4 04:21 Matthew Strong is Hospitalizing Provider. rn 07:27 No provider procedures requiring assistance completed. Patient admitted, IV remains in ll1 place. 07:28 Patient has correct armband on for positive identification. Bed in low position. Client ll1 placed on continuous cardiac and pulse oximetry monitoring. NIBP monitoring applied. child monitor on. 08:11 Primary Nurse role handed off by Duran Mixon, PUMA [facility] 08:11 Thomas Muse, PUMA is Primary Nurse. 1 Administered Medications: 02:50 Drug: NS 0.9% 500 ml Route: IV; Rate: bolus; Site: right antecubital; 4 07:28 Follow up: Response: No adverse reaction; IV Status: Completed infusion; IV Intake: ll1 500ml 03:37 Drug: HYDROcodone-acetaminophen 5 mg-325 mg 1 tabs Route: PO; jb4 05:08 Follow up: Response: No adverse reaction; Marked relief of symptoms jb4 Medication: 07:28 VIS not applicable for this client. ll1 Intake: 07:28 IV: 500ml; Total: 500ml. 1 Outcome: 04:21 Decision to Hospitalize by Provider. rn 07:27 Admitted to ER Hold. Please see [facility] for further documentation. 1 07:27 Condition: stable 07:27 Instructed on the need for admit. 11:24 Patient left the ED. 1 Signatures: Dispatcher [employer] EDMS Lien Muse RN RN kl Nieto, Roman, MD MD rn Bryson, James, RN RN jb4 Lewis, Lynsay, PUMA [facility] Corrections: (The following items were deleted from the chart) 00:05 04/07 23:56 Chief complaint: EMS states: Pt reports fever off and on since . jb4 His family recorded a temp of 101.6 at home and gave tylenol. It was 8.1 upon EMS arrival. BGl of 249, Given 100ml on NS via 18g IV in the right forearm. jb4 04/08 00:05 02/09 23:56 Onset of symptoms was April 08, 2022 jb4 jb4
--- NOTE | 2022-04-08 04:48 | P.HP ---
Certification for Inpatient Patient admitted to: Inpatient With expected LOS: >2 Midnights Patient will require the following post-hospital care: None Practitioner: I am a practitioner with admitting privileges, knowledge of patient current condition, hospital course, and medical plan of care. Services: Services provided to patient in accordance with Admission requirements found in Title 42 Section 412.3 of the Code of Federal Regulations Patient History Date of Service: 04/08/22 Reason for admission: Weakness, Dehydration History of Present Illness: Patient is a 77-year-old male with past medical history of hypertension, insulin type 2 diabetes with neuropathy, lymphedema, osteoarthritis, gout, BALWINDER, HLD, GERD CKD3b who presented to the emergency department via EMS with complaint of fever and weakness. 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 Patient had MILTON that was negative and was treated with empiric antibiotics. No source was ever identified despite extensive work up. He has continued to have on and off fevers since disposition. He also reports that he has become progressively more weak, to the point he can barely stand. His workup in the emergency department today revealed a hemoglobin of 8.1, hematocrit 23.9, platelet 121, BUN 47, creatinine 2.07. Chest xray negative. Vital signs have been stable. No recorded fever, although patient reports taking Tylenol GALVANIZER. ED provider wishes to admit patient for further management. Allergies No Known Allergies Allergy (Verified 08/13/21 13:49) Home medications list reviewed: Yes Home Medications: Allopurinol 300 mg PO DAILY 04/18/19 Amlodipine Besylate 10 mg PO DAILY 04/18/19 Apremilast [Otezla] 30 mg PO BID 04/18/19 Fluticasone Furoate [Arnuity Ellipta] 100 mcg PO DAILY 04/18/19 Furosemide [Lasix*] 40 mg PO DAILY 04/18/19 Gabapentin 300 mg PO DAILY 04/18/19 Glipizide [Glipizide ER] 10 mg PO BID 04/18/19 Hydralazine HCl [Apresoline] 75 mg PO Q8H 04/18/19 Insulin Detemir [Levemir Flextouch] 130 units SQ DAILY 04/18/19 Liraglutide [Victoza 2-Malvin] 1.8 units SQ DAILY 04/18/19 Omeprazole [Prilosec] 40 mg PO DAILY 04/18/19 Rosuvastatin [Crestor*] 10 mg PO DAILY 04/18/19 Gabapentin 600 mg PO BEDTIME 04/19/19 lisinopriL [Prinivil*] 20 mg PO DAILY #30 tab 04/22/19 Aspirin [Ab Chewable Aspirin] 81 mg PO DIRECTED 01/11/22 Baclofen 10 mg PO DAILY 01/11/22 Calcium` 600 mg PO DAILY 01/11/22 Clopidogrel Bisulfate [Plavix] 75 mg PO DAILY 01/11/22 Ferrous Sulfate [Iron] 325 mg PO DAILY 01/11/22 Magnesium Oxide [Magnesium] 250 mg PO DAILY 01/11/22 Linden-3/Dha/Epa/Fish Oil [Fish Oil 1,000 mg Softgel] 1 each PO DAILY 01/11/22 Vit D 2,000 units PO DAILY 01/11/22 Duloxetine HCl 90 mg PO DAILY 01/12/22 Benzonatate [Tessalon Perle*] 100 mg PO TID PRN #30 cap 01/13/22 levoFLOXacin [Levaquin*] 750 mg PO Q24H #7 tab 01/13/22 - Past Medical/Surgical History Diabetic: Yes -: Psoriasis -: Chronic kidney disease, Stage 3, Nephrology-Dr. Holt -: HTN -: Osteoarthritis -: Lymphedema -: Insulin dependent type 2 diabetes -: Gout -: Obesity -: Obstructive sleep apnea -: Hyperlipidemia -: GERD -: History of gastric ulcer -: Bilateral Knee Replacements -: Cholecystectomy -: both hands surgery + right fingers -: punji stick removal Psychosocial/ Personal History: . He has 2 stepchildren, 1 child, and another adopted. He is retired. - Family History Father -: Heart disease - Social History Smoking Status: Never smoker Alcohol use: No CD- Drugs: No Caffeine use: Yes Place of Residence: Home Review of Systems General: Fever, Weakness Physical Examination - Vital Signs Temperature: 99 F Blood Pressure: 148/67 Pulse: 99 Respirations: 15 Pulse Ox (%): 93 - Physical Exam General: Alert, In no apparent distress HEENT: Atraumatic, Other (Dry mucous membranes), EOMI, Sclerae nonicteric Neck: Supple, 2+ carotid pulse no bruit Respiratory: Clear to auscultation bilaterally, Normal air movement Cardiovascular: Regular rate/rhythm, Normal S1 S2 Gastrointestinal: Normal bowel sounds, No tenderness Musculoskeletal: No tenderness Integumentary: No rashes Neurological: Normal tone, Sensation intact, Normal affect, Abnormal strength - Studies Laboratory Data (last 24 hrs) 04/08/22 00:35: PT 17.6 H, INR 1.60, APTT 32.2 04/08/22 00:35: Sodium 135 L, Potassium 3.7, BUN 47 H, Creatinine 2.07 H, Glucose 240 H, Total Bilirubin 0.5, AST 30, ALT 37, Alkaline Phosphatase 76 02 00:35: WBC 6.60, Hgb 8.1 L, Hct 23.9 L, Plt Count 121 L Assessment and Plan - Problems (Diagnosis) (1) Generalized weakness Current Visit: Yes Status: Acute (2) Dehydration Current Visit: Yes Status: Acute (3) Fever Current Visit: Yes Status: Acute Qualifiers: Fever type: unspecified Qualified Code(s): R50.9 - Fever, unspecified (4) Chronic kidney disease Current Visit: Yes Status: Chronic Qualifiers: Chronic kidney disease stage: stage 3 (moderate) Chronic kidney disease stage 3 subtype: stage 3b (GFR 30-44) Qualified Code(s): N18.32 - Chronic kidney disease, stage 3b (5) HTN (hypertension) Current Visit: Yes Status: Chronic Qualifiers: Hypertension type: primary hypertension Qualified Code(s): I10 - Essential (primary) hypertension (6) Hyperlipidemia Current Visit: Yes Status: Chronic Qualifiers: Hyperlipidemia type: unspecified Qualified Code(s): E78.5 - Hyperlipidemia, unspecified - Plan Patient is admitted for further management of generalized weakness and dehydration. PT consult. Continue IV hydration. Encourage PO intake. Hemoglobin slightly below baseline. Patient denies any changes in his stool. Continue to monitor CBC. Check iron studies. New set of blood cultures obtained. Previous grew multi-drug resistant Enterococcus Faecalis. Monitor and replete electrolytes per protocol. Reconcile and continue home medications. VTE prophylaxis. Full code. Discharge Plan: Home Plan to discharge in: Greater than 2 days - Advance Directives Does patient have a Living Will: Yes Does patient have a Durable POA for Healthcare: No - Code Status/Comfort Care Code Status Assessed: Yes Code Status: Full Code Physician Review: Patient Assessed, Agree with Above Assessment and Plan Critical Care: No Time Spent Managing Pts Care (In Minutes): 50
[2022-04-08 04:53] LABS: Urine Blood Negative (Negative); Urine Glucose Negative (Negative); Urine Protein 2+ (Negative); Urine pH 5.5 (5.0-7.0)
[2022-04-08 05:10] LABS: Urine Bacteria None Seen /HPF (<20); Urine Mucus Slight /HPF (None Seen); Urine RBC <5 /HPF (None Seen); Urine WBC Clump Rare /HPF (None Seen)
[2022-04-08] MEDS ORDERED: ONDANSETRON 4 MG/2 ML VIAL IV PRN (07:05)
[2022-04-08] MEDS: Ringers Lactate 1,000 ML IV SCH ×2 (07:05→17:05)
[2022-04-08] MEDS: INSULIN -REGULAR HUMAN 50 UNIT/0.5 ML ML SQ SCH ×4 (07:30→21:00)
[2022-04-08 07:38] VITALS: BMI 37.9
[2022-04-08] MEDS ORDERED: Ringers Lactate 1,000 ML IV ONE (09:56)
[2022-04-08] MEDS ORDERED: ACETAMINOPHEN 500 MG TAB ONE (09:56)
[2022-04-08] MEDS: ACETAMINOPHEN 500 MG TAB PO PRN ×2 (10:02→20:12)
[2022-04-08] MEDS ORDERED: HYDROCODONE/APAP 5/325 MG TAB PO PRN (10:51)
[2022-04-08 11:36] VITALS: O2SAT 94
--- NOTE | 2022-04-08 13:14 | P.PN ---
Date of Service: 04/08/22 Patient reports fever at home almost every night. Reports generalized weakness to the point he finds it difficult to stand or ambulate. No fever since admission. Prior history of Enterococcus bacteremia. Patient reports he underwent extensive work-up at [facility] including MILTON, CT scans, endoscopies and even whole-body scan, source of bacteremia not identified. He states that he was hospitalized for 10 days and discharged with another week of antibiotics. Diagnosis Generalized weakness Chronic anemia Acute renal failure Presence of TAVR History of bacteremia. Plan: Monitor for fever. Blood cultures obtained to be followed. Supportive measures with IV hydration, pain management as needed. Infectious disease consulted No antibiotics until patient has a fever or blood culture grew bacteria. PT consult. Patient may be a good candidate for inpatient acute rehab.
[2022-04-08] MEDS ORDERED: VANCOMYCIN 2 GM in NA CHLORIDE 0.9% 500 ML IVPB SCH (14:00)
[2022-04-08] MEDS ORDERED: VANCOMYCIN 1.25 GM in NA CHLORIDE 0.9% 250 ML IVPB SCH ×2 (14:00→21:00)
--- NOTE | 2022-04-08 17:14 | P.DS ---
Admission Date: 04/08/22 Discharge Date: 04/08/22 Disposition: TRANSFER TO [facility] Discharge Condition: FAIR Reason for Admission: Weakness, Dehydration Consultations: Infectious disease-Dr. Baker Brief History of Present Illness: Patient is a 77-year-old male with past medical history of hypertension, insulin type 2 diabetes with neuropathy, lymphedema, osteoarthritis, gout, BALWINDER, HLD, GERD CKD3b who presented to the emergency department via EMS with complaint of fever and weakness. 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 Patient states MILTON was done which was negative. He had a work-up for infectious focus including multiple CT scans, PET scan and endoscopies which all came back normal. He was hospitalized in [facility] for 10 days and discharged with 1 week of antibiotics via PICC line. He reported fever almost every night over the past couple of weeks. He also reports that he has become progressively more weak, to the point he can barely stand. His workup in the emergency department today revealed a hemoglobin of 8.1, hematocrit 23.9, platelet 121, BUN 47, creatinine 2.07. Chest xray negative. No recorded fever. Patient was admitted for further management. Hospital Course: Patient admitted to the medical floor and started on supportive measures. 4 out of 4 blood culture bottles grew gram-positive cocci within 12-hours. Patient with a prior history of Enterococcus growth in multiple blood culture bottles. Patient started on IV vancomycin. there is a concern for endocarditis given history of TAVR. Transfer initiated to [facility] for patient to be evaluated by his cardiothoracic surgeon and also for repeat MILTON. Patient has been accepted for transfer. Vitals are currently stable for transfer. Vital Signs/Physical Exam: Temp Pulse Resp BP Pulse Ox 98.6 F 100 H 18 137/75 98 04/08/22 12:00 04/08/22 12:00 04/08/22 16:14 04/08/22 12:00 04/08/22 16:14 General: Alert, In no apparent distress, Obese HEENT: Mucous membr. moist/pink Neck: JVD not distended Respiratory: Clear to auscultation bilaterally, Normal air movement Cardiovascular: No edema, Regular rate/rhythm, Normal S1 S2 Gastrointestinal: Normal bowel sounds, Soft and benign, Non-distended Musculoskeletal: No swelling Integumentary: No cyanosis Neurological: Normal strength at 5/5 x4 extr Laboratory Data at Discharge: WBC 6.60 K/uL (4.3-10.9) 04/08/22 00:35 Hgb 8.1 g/dL (13.6-17.9) L 04/08/22 00:35 Hct 23.9 % (39.6-49.0) L 04/08/22 00:35 Plt Count 121 K/uL (152-406) L 04/08/22 00:35 PT 17.6 SECONDS (9.5-12.5) H 04/08/22 00:35 INR 1.60 04/08/22 00:35 APTT 32.2 SECONDS (24.3-36.9) 04/08/22 00:35 Sodium 135 mmol/L (136-145) L 04/08/22 00:35 Potassium 3.7 mmol/L (3.5-5.1) 04/08/22 00:35 BUN 47 mg/dL (7-18) H 04/08/22 00:35 Creatinine 2.07 mg/dL (0.70-1.30) H 04/08/22 00:35 Glucose 240 mg/dL (74-106) H 04/08/22 00:35 Total Bilirubin 0.5 mg/dL (0.2-1.0) 04/08/22 00:35 AST 30 U/L (15-37) 04/08/22 00:35 ALT 37 U/L (16-61) 04/08/22 00:35 Alkaline Phosphatase 76 U/L (45-117) 04/08/22 00:35 Home Medications: Allopurinol 300 mg PO DAILY 04/18/19 Amlodipine Besylate 10 mg PO DAILY 04/18/19 Apremilast [Otezla] 30 mg PO DAILY 04/18/19 Fluticasone Furoate [Arnuity Ellipta] 100 mcg PO DAILY 04/18/19 Gabapentin 300 mg PO DAILY 04/18/19 Glipizide [Glipizide ER] 10 mg PO BID 04/18/19 Hydralazine HCl [Apresoline] 100 mg PO Q8H 04/18/19 Insulin Detemir [Levemir Flextouch] 130 units SQ DAILY 04/18/19 Liraglutide [Victoza 2-Malvin] 1.8 units SQ DAILY 04/18/19 Omeprazole [Prilosec] 40 mg PO DAILY 04/18/19 Rosuvastatin [Crestor*] 10 mg PO DAILY 04/18/19 Gabapentin 600 mg PO BEDTIME 04/19/19 lisinopriL [Prinivil*] 20 mg PO DAILY #30 tab 04/22/19 Aspirin [Ab Chewable Aspirin] 81 mg PO DAILY 01/11/22 Baclofen 10 mg PO DAILY 01/11/22 Calcium` 600 mg PO DAILY 01/11/22 Clopidogrel Bisulfate [Plavix] 75 mg PO DAILY 01/11/22 Ferrous Sulfate [Iron] 325 mg PO BID 01/11/22 Magnesium Oxide [Magnesium] 250 mg PO BID 01/11/22 [place]-3/Dha/Epa/Fish Oil [Fish Oil 1,000 mg Softgel] 1 each PO BID 01/11/22 Vit D 2,000 units PO DAILY 01/11/22 Duloxetine HCl 90 mg PO DAILY 01/12/22 Apixaban [Eliquis] 5 mg PO DAILY 04/08/22 Bumetanide [Bumex*] 1 mg PO BID 04/08/22 Calcium Carbonate [Oscal*] 500 mg PO DAILY tab 04/08/22 Carvedilol [Coreg] 6.25 mg PO BID 04/08/22 Fluticasone/Umeclidin/Vilanter [Trelegy Ellipta 200-62.5-25] 200 mcg PO DAILY 04/08/22 Multivit-Min/FA/Lycopen/Lutein [Centrum Silver Tablet] 1 each PO DAILY 04/08/22 Time spent managing pt's care (in minutes): 33
[2022-04-08 17:36] VITALS: BP 152/68
--- NOTE | 2022-04-08 20:24 | RAD REPORT ---
EXAM DESCRIPTION: RAD - Chest Single View - 04/08/2022 12:29 am XR Chest, 1 View CLINICAL HISTORY: FEVER TECHNIQUE: Frontal view of the chest. COMPARISON: XR Chest dated 04/18/2019 FINDINGS: Lungs: Unremarkable. No consolidation. Pleural space: Unremarkable. No pneumothorax. Heart: The cardiac silhouette is enlarged. Mediastinum: Unremarkable. Bones/joints: Unremarkable. IMPRESSION: No acute disease. Electronically signed by: Kenzie Sutton MD 04/08/2022 12:53 AM TECHNOLOGY STRATEGIST Due to temporary technical issues with the PACS/Fluency reporting system, reports are being signed by the in house radiologists without review as a courtesy to insure prompt reporting. The interpreting radiologist is fully responsible for the content of the report.
[2022-04-08] MEDS ORDERED: FERROUS SULFATE 325 MG TAB PO SCH (21:00)
[2022-04-08] MEDS ORDERED: MAGNESIUM OXIDE 400 MG TAB PO SCH (21:00)
[2022-04-08 22:10] VITALS: TEMP 98.2
[2022-04-09] MEDS ORDERED: HOME MED 1 EA UNK (Fluticasone/Umeclidin/Vilanter [Trelegy Ellipta 200-62.5-25] Blst.W.Dev PO SCH (09:00)
[2022-04-09] MEDS ORDERED: ASPIRIN 81 MG CHEWABLE TABLET PO SCH (09:00)
[2022-04-09] MEDS ORDERED: BACLOFEN 10 MG TAB PO SCH (09:00)
[2022-04-09] MEDS ORDERED: CALCIUM CARBONATE 500 MG TAB PO SCH (09:00)
[2022-04-09] MEDS ORDERED: APIXABAN 5 MG TABLET PO SCH (09:00)
--- NOTE | 2022-04-12 17:29 | EKG ---
Test Date: 2022-04-08 Test Time: 00:31:09 Medical Technologist: MEASUREMENT RESULTS: Intervals: Rate: 98 CT: 214 QRSD: 112 QT: 374 QTc: 477 [place]: P: 50 CT: 214 QRS: -54 T: 63 INTERPRETIVE STATEMENTS: Sinus rhythm with sinus arrhythmia with 1st degree AV block Left anterior fascicular block Cannot rule out Anterior infarct, age undetermined Abnormal ECG Compared to ECG 02/16/2022 12:55:03 Left anterior fascicular block now present Myocardial infarct finding now present Atrial premature complex(es) no longer present Left bundle-branch block no longer present ST (T wave) deviation no longer present Possible ischemia no longer present Electronically Signed On 04-12-22 17:18:33 DISTANCE EDUCATION COORDINATOR by Nawaf Dotson
== END 2022-04-08 22:30 | disposition short-term general hospital (02) | DRG 289 ==
LOC: ER 23:37 → ERHOLD 04-08 04:36 → 2ND 04-08 11:11
PROVIDERS: ADMIT Internal Medicine; ATTEND Internal Medicine
DX: I33.0 Acute and subacute infective endocarditis (principal); N17.9 Acute kidney failure, unspecified; Z16.24 Resistance to multiple antibiotics; E86.0 Dehydration; K21.9 Gastro-esophageal reflux disease without esophagitis; D64.9 Anemia, unspecified; I12.9 Hypertensive chronic kidney disease with stage 1 through stage 4 chronic kidney disease, or unspecified chronic kidney disease; N18.32 Chronic kidney disease, stage 3b; E11.22 Type 2 diabetes mellitus 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chronic kidney disease; E66.9 Obesity, unspecified; M10.9 Gout, unspecified; M19.90 Unspecified osteoarthritis, unspecified site; B95.2 Enterococcus as the cause of diseases classified elsewhere; Z79.4 Long term (current) use of insulin; Z95.2 Presence of prosthetic heart valve; Z79.84 Long term (current) use of oral hypoglycemic drugs; Z90.49 Acquired absence of other specified parts of digestive tract; Z68.37 Body mass index [BMI] 37.0-37.9, adult; Z79.82 Long term (current) use of aspirin; Z79.02 Long term (current) use of antithrombotics/antiplatelets; Z96.653 Presence of artificial knee joint, bilateral; Z79.899 Other long term (current) drug therapy; Z20.822 Contact with and (suspected) exposure to COVID-19
CPT/HCPCS: 0240U; 36415; 71045; 80053; 81003; 81015; 82947; 83605; 84439; 84443; 85025; 85610; 85730; 87040; 87077; 87086; 87088; 87186; 87205; 93005; 96360; 96361; 97116; 97161; 97530; 99285; J1815; J3370; J7040; J7120

== ENCOUNTER 2022-10-27 21:55 | Inpatient (IN) | payer OTHER ==
--- OUTSIDE RECORDS SUMMARY | 2022-10-27 22:11 | XMS REPORT | Continuity of Care Document ---
:1945 Author Organization [facility] t Address [address] [place] [address] Care Team Providers Name Role Phone Joe Yann Suárez Attending Clinician Unavailable ANGELIKA LUGO Attending Clinician Unavailable GABY ISLAS Attending Clinician Unavailable Sudeep Denny MD Attending Clinician [phone] Eligio Roach MD Attending Clinician ELIGIO ROACH Attending Clinician Unavailable Leigh Mejia CRNA Attending Clinician Prashant Rayo MD Attending Clinician [phone] Shakila MAJOR, [place] May Attending Clinician Maryse Muñiz RN Attending Clinician Unavailable Diya Rviera RN Attending Clinician Unavailable Lilian Deleon MD Attending Clinician [phone] LILIAN DELEON Attending Clinician Unavailable lAly MAJOR, Geovani Price Attending Clinician Kartik Killian MD Attending Clinician [phone] KARTIK KILLIAN Attending Clinician Unavailable Blayne BARTHOLOMEW, Bernarda Garrison Attending Clinician [phone] Neetu Shah Attending Clinician Unavailable Sam Paredes Attending Clinician GABY ISLAS Admitting Clinician Unavailable SUDEEP DENNY Admitting Clinician Unavailable LILIAN DELEON Admitting Clinician Unavailable Yann West Admitting Clinician Unavailable Payers Payer Name Policy Type Policy Number Effective Date Expiration Date S sean AETNA MEDICARE O [id number] 2022 POS PPO 00:00:00 AETNA [facility] [id number] 2021 2021 SUPPLEMENTAL 00:00:00 00:00:00 MEDICARE NOVITAS MB [id number] [facility] [id number] MEDICARE NOVITAS MB [id number] [facility] AETNA [id number] [facility] MEDICARE NOVITAS MB [id number] [facility] AENA [id number] [facility] Problems Condition Condition Condition Status Onset Resolution Last Treating Co mments Source Name Details Category Date Date Treatment Clinician Date Paroxysmal Paroxysmal Disease Active 2021-[address] atrial atrial 2-31 [facility] fibrillati fibrillati 00:00: Me dical on on 00 [place] Bacteremia Bacteremia Disease Active 2021-[address] 2-23 [facility] 00:00: Medical 00 [place] Bilateral Bilateral Disease Active [facility] carotid carotid [facility] artery artery 00:00: Medical disease disease 00 Center Severe Severe Disease Active [facility] aortic aortic 803 [facility] stenosis stenosis 00:00: Medica l 00 Center Essential Essential Disease Active [facility] hypertensi hypertensi 8-03 [facility] on, benign on, benign 00:00: Me dical 00 Center Chronic Chronic Disease Active [facility] venous venous 09-25 [facility] insufficie insufficie 00:00: Me dical ncy of ncy of 00 [place] lower lower extremity extremity H/O H/O Disease Active [facility] asbestosis asbestosis 7 [facility] lung lung 00:00: Medical disease disease 00 Center Chronic Chronic Disease Active [facility] venous venous 30 [facility] insufficie insufficie 00:00: Me dical ncy ncy 00 Center Gout Gout Disease Active [facility] 7-30 [facility] 00:00: Medical 00 Center CRLD CRLD Disease Active [facility] (chronic (chronic 30 [facility] restrictiv restrictiv 00:00: Me dical e lung e lung 00 Center disease) disease) History of History of Disease Active [facility] total left total left 09-25 [facility] knee knee 00:00: Medical replacemen replacemen 00 Ce nter t t (TKR)-2004 (TKR)-2004 Acute on Acute on Disease Active [facility] chronic chronic 09-25 [facility] diastolic diastolic 00:00: Medi carey CHF CHF 00 Center (congestiv (congestiv e heart e heart failure), failure), NYHA class NYHA class 3 3 Psoriasis Psoriasis Disease Active [facility] 09-24 [facility] 00:00: Medical 00 Center Osteoarthr Osteoarthr Disease Active [facility] itis itis - [facility] 00:00: Medical 00 Center Essential Essential Problem Active 2021-06-18 [facility] hypertensi hypertensi 10-22 04:44:46 l on on 00:00: [place] (disorder) (disorder) 00 Active 10/23/2015 Problem 06/18/2021 [facility] Type II Type II Problem Active 2021-06-18 Hi moria diabetes diabetes 10-22 04:44:46 l mellitus mellitus 00:00: Herman rene without without 00 complicati complicati on on (disorder) (disorder) Active 10/23/2015 Problem 06/18/2021 [facility] Essential Essential Problem Active 2021-06-18 [facility] tremor tremor 03-20 04:44:46 l (disorder) (disorder) 00:00: Marcus milner Active 00 03/20/2015 Problem 06/18/2021 [facility] Neuropathy Neuropath Problem Active 2021-06-18 Memoria (disorder) y 04:44:46 l (disorder) Herman rene Active Problem 06/18/2021 [facility] 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 04:44:46 l s s Cowan (disorder) (disorder) Active Problem 06/18/2021 [facility] Metal Metal Problem Active 2021-06-18 Car osman foreign foreign 04:44:46 l body in body in [place] upper limb upper limb (disorder) (disorder) Active Problem 06/18/2021 [facility] [id number] [place] [id number] carotid Spirit stenosis - [facility] [id number] Vitamin D Problem Comm on deficiency [facility] [id number] 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 - [facility] aortic valve [facility] replacemen Medica l t) [place] [id number] Chronic Problem Commo n diastolic Spirit congestive - [facility] heart failure [facility] [id number] Chronic Problem Commo n heart Spirit failure - [facility] with preserved [facility] ejection Medical fraction Center Heart Murmur, Problem Common murmur cardiac [facility] Gastroesop Chronic Problem Comm on hageal GERD Spirit reflux - CHI disease [facility] Essential Benign Problem Common hypertensi essential Spi rit on HTN - [facility] Iron Anemia, Problem Common deficiency iron Spirit anemia deficiency - [facility] Benign Hyperplast Problem Commo n neoplasm ic colon Spirit of colon polyp - [facility] Hyperlipid Hyperlipid Problem C ommon emia emia [facility] [id number] Morbid Problem Commo n 9104 (severe) Spirit obesity - [facility] due to [facility] [id number] Diabetic Problem Comm on polyneurop Spirit athy - [facility] associated St with type [facility] 2 diabetes Medica l mellitus Center [id number] Type 2 Problem Common diabetes Spirit mellitus - CHI with [facility] Medical kidney Center disease [id number] PSA Problem Common (psoriatic Spirit arthritis) - [facility] [id number] History of Problem Co mmon gout [facility] [id number] PUD Problem Common (peptic Spirit ulcer - CHI disease) [facility] [id number] long-term Problem Com mon (current) Spirit use of - [facility] insulin [facility] [id number] Chronic Problem Common obstructiv Spirit e [facility] COPD Center type [id number] Proteinuri Problem Com mon a, Spirit unspecifie - CHI d [facility] [id number] Body mass Problem Com mon index Spirit (BMI) - CHI 40.0-44.9, adult [facility] [id number] Type 2 [place] [address] diabetes Spirit mellitus - CHI with other diabetic [facility] kidney Medical complicati Center on [id number] 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 - CHI of left foot [facility] Aortic Aortic Problem Common valve valve Spirit disorder stenosis, - CHI nonrheumat [facility] [id number] Non-pressu Problem Co mmon re chronic Spirit ulcer of - CHI other part St of left [facility] foot with Medical other Center specified severity [id number] Thrombocyt Problem Co mmon openia Spirit - CHI [facility] [id number] Type 2 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 Medica l y Center [id number] Chronic Problem Commo n kidney Spirit disease, - [facility] stage [facility] Obstructiv Problem C ommon e sleep e sleep Spirit apnea apnea - [facility] [id number] 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 - [facility] scalp and St skin of [facility] neck [facility] [id number] Type 2 Problem Common diabetes Spirit mellitus - CHI with foot ulcer [facility] [id number] Diabetes Problem Comm on mellitus Spirit due to - CHI underlying [facility] with foot Medical ulcer Center [id number] Edema of Problem Comm on lower Spirit extremity - CHI due to peripheral [facility] venous Medical insufficie Center ncy Allergies, Adverse Reactions, Alerts Allergy Allergy Status Severity Reaction(s) Onset Inactive Treating Comm ents Source Name Type Date Date Clinician LISINOPR Allergy Active Other [facility] [place] 2 [facility] 00:00: Medical 00 Center No Known DA Active [facility] Allergie 05-25 Clear s 00:00: [place] [address] [place] [address] No Known No Known Active Memori a Medicati Medicati l on on [place] Allergie Allergie s s NO KNOWN Allergy Active [facility] Family History Family Member Diagnosis Comments Start Date Stop Date Source Natural brother Heart attack [facility] Natural brother Valvular heart [facility] Natural father Heart disease [facility] Natural father Heart failure [facility] Natural father Other [facility] Natural mother Alzheimer's disease C HI [facility] Natural mother Stroke [facility] Social History Social Habit Start Date Stop Date Quantity Comments Source History [facility] Alcohol Frequency Medical Center History [facility] Alcohol Std Drinks Medica l Center History [facility] Alcohol Binge Medical [place] History [facility] Transport Non-Med Medical Center History of Tobacco [facility] - Use [facility] Alcohol intake 2022-02-26 2022-02-26 Current drinker [facility] 00:[facility]:00 00:00:00 of alcohol Medical Center (finding) History [facility] 2022-02-18 2022-02-[address] [facility] Transport Med 00:00:00 00:00:[address] History [facility] 2022-02-18 2022-02-[address] [facility] Housing Unable to 00:00:00 00:00:00 Medical Center Pay History [facility] 2022-02-18 2022-02-[address] [facility] Housing Places 00:00:00 00:00:00 Medical Ce nter Lived History [facility] 2022-02-18 2022-02-[address] [facility] Homeless 00:00:00 00:00:00 Medical Center Last Year Cigarettes smoked 2021-09-24 2021-09-[address] [facility] current (pack per 00:00:00 00:00:00 Medical Center day) - Reported Tobacco use and 2021-09-24 2021-09-[address] [facility] exposure 00:00:00 00:00:00 Medical Center Alcohol Comment 2021-09-24 2021-09-[address] [facility] 00:00:00 00:00:00 [facility] Center Sex Assigned At [address] [facility] 00:00:00 00:00:00 Medical Center Smoking Status Start Date Stop Date Source Social History 2021-06-15 15:08:2021-06-15 15:08:27 [facility] Medications Ordered Filled Start Stop Current Ordering Indication Dosage Frequency Signature Comments Components Source Medication Medication Date Date Medication? Clinician (SIG) Name Name Eliquis 5 Eliquis 5 2022- No QD Eliquis 5 mg 5 mg mg 5 mg 08 08-07 mg 5 mg 00:00: 00:00 00 :00 Promethazin Promethazin 2022- No 10{ml_a TID Promethazi e HCl 6.25 e HCl 6.25 18 03-23 s_neede ne HCl MG/5ML MG/5ML 00:00: 00:00 d} 6.25 00 :00 MG/5ML Kenalog Kenalog No 40mg Common (Triamcinol (Triamcinol 1-13 S pirit one) one) 00:00: - [facility] Brandonalog Brandonalog No 40mg Common (Triamcinol (Triamcinol 1-13 S pirit one) one) 00:00: - [facility] Brandonalog Brandonalog No 40mg Common (Triamcinol (Triamcinol 1-13 S pirit one) one) 00:00: - [facility] Azithromyci Azithromyci 2022- No QD Azithromyc n [...] total) by [place] ter mouth daily. glipiZIDE 2021-02 No 10mg Take [address] (GLUCOTROL) 2-30 12-30 by mouth 2 L ukes 10 MG 13:53: 00:00 (two) Medical tablet 34 :00 times Center daily before meals. furosemide 2021-02 No 40mg QD Take [address] (LASIX) 40 2-30 12-30 by mouth Luke s MG tablet 12:49: 00:00 daily. Medic al 15 :00 Center aspirin 81 2021-02 No 81mg QD Take [address] MG EC 2-30 12-23 by mouth [facility] tablet 12:49: 00:00 daily. Medical 12 :00 Center omega-3 2021-02 No 2g Q.5D Take 2 g [facility] t fatty 2-30 12-23 by mouth 2 [facility] acids-fish 12:49: 00:00 (two) Medic al oil 12 :00 times Center 340-1,000 daily. mg Cap per capsule magnesium 2021-02 No 400mg QD Take [address] oxide 250 2-30 12-23 mg by [facility] mg 12:49: 00:00 mouth Medical magnesium 12 :00 daily. Center Tab tablet ampicillin 2021-02 Yes 2g Inject 2 g [...] (NS) hours. 100 mL (V2B) IVPB bumetanide 2021-02 No 1mg Take [address] (BUMEX) 1 2-30 12-30 tablet (1 Luke s MG tablet 00:00: 23:59 mg total) Me dical 00 :00 by mouth 2 Center (two) times daily. carvediloL 2021-02 No 3.125mg Q.5D Take [address] (COREG) 2-30 12-30 tablet [facility] 3.125 MG 00:00: 23:59 (3.125 mg Med ical tablet 00 :00 total) by Center mouth 2 (two) times daily. magnesium 2021-02- No 375mg QD Take 1.[address] oxide 250 03-27 tablets [facility] mg 00:00: 23:59 (375 mg Medical magnesium 00 :00 total) by Cente r Tab tablet mouth daily for 30 days. aspirin 81 2021-02- No 81mg QD Take [address] MG EC 03-27 tablet (81 [facility] tablet 00:00: 23:59 mg total) Medic al 00 :00 by mouth Center daily for 30 days. omega-3 2021-02- No 2g Q.5D Take [address] [...] No 600mg Take [address] carbonate 2- 12-23 mg by [facility]ukes (OS-CAREY) 16:14: 00:00 mouth 2 Medic al 600 mg 46 :00 (two) Center calcium times (1,500 mg) daily with Tab breakfast and dinner. omega-3 2021-0 Yes 2g Q.5D Take 2 [...] 340-1,000 daily. mg Cap per capsule multivit-mi 2021-0 Yes Take by [facility] n/FA/lycope 8-30 mouth. [facility] n/lutein 16:09: Medical (CENTRUM 55 Center SILVER MEN ORAL) multivit-mi 2021-0 Yes Take by [facility] n/FA/lycope 8-30 mouth. [facility] n/lutein 16:09: Medical (CENTRUM 55 Center SILVER MEN ORAL) multivit-mi 2021-0 Yes Take by [facility] n/FA/lycope 8-30 mouth. [facility] n/lutein 16:09: Medical (CENTRUM 55 [place] SILVER MEN ORAL) magnesium 2021-0 Yes 400mg QD Take [address] oxide 250 8-30 mg by [facility] mg 16:09: mouth Medical magnesium 48 daily. Center Tab tablet magnesium 2021-0 Yes 400mg QD Take [address] oxide 250 8-30 mg by [facility]ukes mg 16:09: mouth Medical magnesium 48 daily. Center Tab tablet magnesium 2-0 Yes 400mg QD Take [address] [...] (three) Center times daily with meals. ferrous 2021-0 Yes 325mg Take 325 [facility] [...] daily with Tab breakfast and dinner. calcium 2021-0 Yes 600mg Take 600 [facility] carbonate 8-30 mg by [facility] (OS-CAREY) 16:08: mouth 2 Medica l 600 mg 58 (two) Center calcium times (1,500 mg) daily with Tab breakfast and dinner. calcium 2021-0 Yes 600mg Take 600 [facility] carbonate 8-30 mg by [facility] (OS-CAREY) 16:08: mouth 2 Medica l 600 mg 58 (two) Center calcium times (1,500 mg) daily with Tab breakfast and dinner. aspirin 81 2021-0 Yes 81mg QD Take [address] MG EC 8-30 by mouth [facility] tablet 16:08: daily. [address] aspirin 81 2021-0 Yes 81mg QD Take [address] MG EC 8-30 by mouth [facility] tablet 16:08: daily. [address] aspirin 81 2021-0 Yes 81mg QD Take [address] MG EC 8-30 by mouth [facility] tablet 16:08: daily. [address] apremilast 2021-0 Yes Take by [facility] (Otezla) 30 8-30 mouth. [facility] mg Tab 16:08: [address] apremilast 2021-0 Yes Take by [facility] (Otezla) 30 8-30 mouth. [facility] mg Tab 16:08: [address] apremilast 2021-0 Yes Take by [facility] (Otezla) 30 8-30 mouth. [facility] mg Tab 16:08: [address] clopidogreL 2021-0 2023- No 75mg QD Take [address] (PLAVIX) 75 8-05 08-05 tablet (75 L [facility] mg tablet 00:00: 23:59 mg total) Me dical 00 :00 by mouth Center daily. clopidogreL 2021-2022- No 75mg QD Take [address] (PLAVIX) 75 8- 08-05 tablet (75 L [facility] mg tablet 00:00: 23:59 mg total) Me dical 00 :00 by mouth Center daily. clopidogreL 2021-2022- No 75mg QD Take [address] (PLAVIX) 75 10-01 08-05 tablet (75 L [facility] mg tablet 00:00: 23:59 mg total) Me dical 00 :00 by mouth Center daily. clopidogreL 2021-2021- No 75mg QD Take [address] (PLAVIX) 75 10-01-23 tablet (75 L [facility] mg tablet 00:00: [...] QD Take [address] (LASIX) 40 10-01- tablet (40 [facility] MG tablet 00:00: 23:59 mg total) Me dical 00 :00 by mouth Center daily for 90 days. furosemide 2021-0 2- No 40mg QD Take [address] (LASIX) 40 10-01-03 tablet (40 [facility] MG tablet 00:00: 23:59 mg total) Me dical 00 :00 by mouth Center daily for 90 days. furosemide 2021-0 2- No 40mg Q.5D Take [address] (LASIX) 40 09-30 08-04 by mouth 2 [facility] MG tablet 10:58: 00:00 (two) Medica l 47 :00 times Center daily. furosemide 2021-0 2- No 40mg Q.5D Take [address] (LASIX) 40 8-04 08-04 by mouth 2 [facility] MG tablet 10:58: 00:00 (two) Medica l 47 :00 times Center daily. furosemide 2021- No 40mg Q.5D Take [address] (LASIX) 40 8-04 08-04 by mouth 2 [facility] MG tablet 10:58: 00:00 (two) Medica l 47 :00 times Center daily. furosemide 2021- No 40mg Q.5D Take [address] (LASIX) 40 8-04 08-04 by mouth 2 [facility] MG tablet 10:58: 00:00 (two) Medica l 47 :00 times Center daily. lisinopriL 2022- No 20mg Take [address] (PRINIVIL,Z 8-04 08-04 tablet (20 L [facility] ESTRIL) 20 00:00: 23:59 mg total) M edical MG tablet 00 :00 by mouth 2 Cent er (two) times daily before meals. lisinopriL 2022- No 20mg Take [address] (PRINIVIL,Z 8-04 08-04 tablet (20 [facility] ESTRIL) 20 00:00: 23:59 mg total) M edical MG tablet 00 :00 by mouth 2 Cent er (two) times daily before meals. lisinopriL 2022- No 20mg Take [address] (PRINIVIL,Z 8-04 08-04 tablet (20 L [facility] ESTRIL) 20 00:00: 23:59 mg total) M edical MG tablet 00 :00 by mouth 2 Cent er (two) times daily before meals. lisinopriL 2022- No 20mg Take [address] (PRINIVIL,Z 8-04 08-04 tablet (20 L [facility] ESTRIL) 20 00:00: 23:59 mg total) M edical MG tablet 00 :00 by mouth 2 Cent er (two) times daily before meals. apixaban 2021- No 5mg Q.5D Take [address] (ELIQUIS) 5 8-04 09-03 tablet (5 [facility] mg Tab 00:00: 23:59 mg total) Medic al tablet 00 :00 by mouth 2 Center (two) times daily for 30 days. apixaban 2022-0 2022- No 5mg Q.5D Take [address] (ELIQUIS) 5 - 09-03 tablet (5 [facility] mg Tab 00:00: 23:59 mg total) Medic al tablet 00 :00 by mouth 2 Center (two) times daily for 30 days. apixaban 2022-0 2022- No 5mg Q.5D Take [address] (ELIQUIS) 5 09-30-03 tablet (5 [facility] mg Tab 00:00: 23:59 mg total) Medic al tablet 00 :00 by mouth 2 Center (two) times daily for 30 days. apixaban 2022-0 2022- No 5mg Q.5D Take [address] (ELIQUIS) 5 09-30- tablet (5 [facility] mg Tab 00:00: 23:59 mg total) Medic al tablet 00 :00 by mouth 2 Center (two) times daily for 30 days. mINOCYCLine 2022-0 2022- No 100mg Take [address] (MINOCIN,DY 8- 08-09 capsule Luke s NACIN) 100 00:00: 23:59 (100 mg Med ical MG capsule 00 :00 total) by Cent er mouth every 12 (twelve) hours for 5 days. mINOCYCLine 2022-0 2022- No 100mg Take [address] (MINOCIN,DY 8- 08-09 capsule Luke s NACIN) 100 00:00: 23:59 (100 mg Med ical MG capsule 00 :00 total) by Cent er mouth every 12 (twelve) hours for 5 days. mINOCYCLine 2022-0 2022- No 100mg Take [address] (MINOCIN,DY 8- 08-09 capsule Luke s NACIN) 100 00:00: 23:59 (100 mg Med ical MG capsule 00 :00 total) by Cent er mouth every 12 (twelve) hours for 5 days. mINOCYCLine 2022-0 2022- No 100mg Take [address] (MINOCIN,DY 8- 08-09 capsule Luke s NACIN) 100 00:00: 23:59 (100 mg Med ical MG capsule 00 :00 total) by Cent er mouth every 12 (twelve) hours for 5 days. rosuvastati 2022-0 Yes 10mg QD Take [address] n (CRESTOR) 7-13 by mouth Luke s 10 MG 00:00: nightly. Medical tablet 00 [place] rosuvastati Yes 10mg QD Take [address] n (CRESTOR) 7-13 by mouth Luke s 10 MG 00:00: nightly. Medical tablet 00 [place] rosuvastati Yes 10mg QD Take [address] n (CRESTOR) 7-13 by mouth Luke s 10 MG 00:00: nightly. Medical tablet 00 [place] rosuvastati Yes 10mg QD Take [address] n (CRESTOR) 7-13 by mouth Luke s 10 MG 00:00: nightly. Medical tablet 00 [place] allopurinoL Yes 300mg QD Take [address] (ZYLOPRIM) 7-11 mg by [facility]ukes 300 MG 00:00: mouth Medical tablet 00 daily. [place] allopurinoL Yes 300mg QD Take [address] (ZYLOPRIM) 7-11 mg by [facility] 300 MG 00:00: mouth Medical tablet 00 daily. [place] allopurinoL Yes 300mg QD Take [address] (ZYLOPRIM) 7-11 mg by [facility] 300 MG 00:00: mouth Medical tablet 00 daily. [place] allopurinoL Yes 300mg QD Take [address] (ZYLOPRIM) 7-11 mg by [facility] 300 MG 00:00: mouth Medical tablet 00 daily. [place] omeprazole Yes 40mg QD Take [address] (PriLOSEC) 6-29 by mouth [facility]ukes 40 MG 00:00: daily. Medical capsule 00 [place] omeprazole Yes 40mg QD Take [address] (PriLOSEC) 6-29 by mouth [facility] 40 MG 00:00: daily. Medical capsule 00 [place] omeprazole 0 Yes 40mg QD Take [address] (PriLOSEC) 6-29 by mouth [facility] 40 MG 00:00: daily. Medical capsule 00 [place] omeprazole Yes 40mg QD Take [address] (PriLOSEC) 6-29 by mouth [facility] 40 MG 00:00: daily. Medical capsule 00 Center metoprolol 2022-0 Yes 100mg QD Take [address] succinate 6-24 mg by Lukes (TOPROL-XL) 00:00: mouth Medic al 100 MG 24 00 daily. Center hr tablet metoprolol 2022-0 Yes 100mg QD Take [address] succinate 6-24 mg by Lukes (TOPROL-XL) 00:00: mouth Medic al 100 MG 24 00 daily. Center hr tablet metoprolol 2-0 Yes 100mg QD Take [address] succinate 6-24 mg by Lukes (TOPROL-XL) 00:00: mouth Medic al 100 MG 24 00 daily. Center hr tablet metoprolol 2-0 2022- No 50mg QD Take [address] succinate 6-24 12-30 by mouth [facility] (TOPROL-XL) 00:00: 00:00 daily . Me dical 100 MG 24 00 :00 Center hr tablet lisinopriL 2-0 2022- No 20mg QD Take [address] (PRINIVIL,Z 6-24 08-04 by mouth Bakari es ESTRIL) 20 00:00: 00:00 daily. Medi carey MG tablet 00 :00 [place] lisinopriL 2-0 2022- No 20mg QD Take [address] (PRINIVIL,Z 6-24 08-04 by mouth Bakari es ESTRIL) 20 00:00: 00:00 daily. Medi carey MG tablet 00 :00 [place] lisinopriL 2-0 2022- No 20mg QD Take [address] (PRINIVIL,Z 6-24 08-04 by mouth Bakari es ESTRIL) 20 00:00: 00:00 daily. Medi carey MG tablet 00 :00 [place] lisinopriL 2-0 2022- No 20mg QD Take [address] (PRINIVIL,Z 6-24 08-04 by mouth Bakari es ESTRIL) 20 00:00: 00:00 daily. Medi carey MG tablet 00 :00 Center gabapentin 2-0 Yes Q.5D Take by [facility] (NEURONTIN) 6-23 mouth 2 [facility] 300 MG 00:00: (two) Medical capsule 00 times Center daily. gabapentin 2022-0 Yes Q.5D Take by [facility] (NEURONTIN) 6-23 mouth 2 [facility] 300 MG 00:00: (two) Medical capsule 00 times Center daily. gabapentin 0 Yes Q.5D Take by [facility] (NEURONTIN) 6-23 mouth 2 [facility] 300 MG 00:00: (two) Medical capsule 00 times Center daily. gabapentin 2021-0 Yes Q.5D Take by [facility] (NEURONTIN) 6-23 mouth 2 [facility] 300 MG 00:00: (two) Medical capsule 00 times Center daily 300mg QAM, 600mg QPM. liraglutide 0 Yes 1.8mg QD Inject 1.[address] (Victoza 6-18 mg [facility]ukes 2-Mavlin) 0.6 00:00: subcutaneo M edical mg/0.1 mL 00 usly Center (18 mg/3 daily. mL) syringe liraglutide 0 Yes 1.8mg QD Inject 1.[address] (Victoza 6-18 mg [facility]ukes 2-Malvin) 0.6 00:00: subcutaneo M edical mg/0.1 mL 00 usly Center (18 mg/3 daily. mL) syringe liraglutide 0 Yes 1.8mg QD Inject 1.[address] (Victoza 6-18 mg [facility]ukes 2-Malvin) 0.6 00:00: subcutaneo M edical mg/0.1 mL 00 usly Center (18 mg/3 daily. mL) syringe liraglutide 2021- No 1.8mg QD Inject 1.[address] (Victoza 6-18 12-30 mg [facility] 2-Malvin) 0.6 00:00: 00:00 subcutaneo Medical mg/0.1 mL 00 :00 usly Center (18 mg/3 daily. mL) syringe Levemir 0 Yes 60U Q.5D Inject 60 [facility] FlexTouch 6-13 Units [facility] U-100 00:00: subcutaneo Medica l Insuln 100 00 usly 2 Center unit/mL (3 (two) mL) InPn times injection daily. Levemir 2021-0 Yes 60U Q.5D Inject 60 [facility] FlexTouch [facility]: subcutaneo Medica [facility] Insuln 100 00 usly 2 Center unit/mL (3 (two) mL) InPn times injection daily. Levemir 2021-0 Yes 60U Q.5D Inject [facility] 00:00: subcutaneo [facility]ica [facility] Insuln 100 00 usly 2 Center unit/mL (3 (two) mL) InPn times injection daily. Levemir 2021-0 Yes 130U QD Inject [address] [facility] FlexTouch 6-13 [facility] 00:00: [facility]cutaneo [facility] Insuln [address] unit/mL (3 . mL) InPn injection amLODIPine 2021-0 Yes 10mg [id number] Take [address] [facility] (NORVASC) 5-16 [id number] by mouth 3 [facility] 10 MG 00:00: 3D (three) Medical tablet 00 times Center daily. hydrALAZINE 2021-0 Yes 100mg Q.[id number] Take [address] [facility] (APRESOLINE 5-16 [id number] mg by L ukes ) 100 MG 00:00: 3D mouth 3 Medica l tablet 00 (three) Center times daily. amLODIPine 2021-0 Yes 10mg Q.[id number] Take [address] [facility] (NORVASC) 5-16 [id number] by mouth 3 [facility] 10 MG 00:00: 3D (three) Medical tablet 00 times Center daily. hydrALAZINE 2021-0 Yes 100mg Q.[id number] Take [address] [facility] (APRESOLINE 5-16 [id number] mg by L [facility]kes ) 100 MG 00:00: 3D mouth 3 Medica l tablet 00 (three) Center times daily. amLODIPine 2021-0 Yes 10mg Q.[id number] Take [address] [facility] (NORVASC) 5-16 [id number] by mouth 3 [facility] 10 MG 00:00: 3D (three) Medical tablet 00 times Center daily. hydrALAZINE 2022-0 Yes 100mg Q.[id number] Take [address] [facility] (APRESOLINE 5-16 [id number] mg by L [facility] ) 100 MG 00:00: 3D mouth 3 Medica l tablet 00 (three) Center times daily. hydrALAZINE 2022-0 Yes 100mg Q.[id number] Take [address] [facility] (APRESOLINE 5-16 [id number] mg by L [facility] ) 100 MG 00:00: 3D mouth 3 Medica l tablet 00 (three) Center times daily. amLODIPine 0 2021- No 10mg QD Take [address] [facility] (NORVASC) 5-16 12-30 by mouth [facility] 10 MG 00:00: 00:00 daily . Medical tablet 00 :00 [place] baclofen 0 Yes 10mg QD [address] [facility] (LIORESAL) 5-03 nightly. [facility] 10 MG 00:00: Medical tablet 00 [place] baclofen 0 Yes 10mg QD [address] [facility] (LIORESAL) 5-03 nightly. [facility] 10 MG 00:00: Medical tablet 00 [place] baclofen 0 Yes 10mg QD [address] [facility] (LIORESAL) 5-03 nightly. [facility] 10 MG 00:00: Medical tablet 00 [place] baclofen 0 Yes 10mg QD [address] [facility] (LIORESAL) 5-03 daily . [facility] 10 MG 00:00: Medical tablet 00 [place] calcium-vit 0 Yes 1 tab, PO, [facility]oria [...] 00 Refill(s) 325 mg oral tablet magnesium 2022-0 Yes 250 mg = 1 Me moria [...] H ermann tablet 00 tab, 0 Refill(s) Fish Oil 0 Yes 1,000 mg = Mem oria 1000 mg 06-15 1 cap, PO, l oral 15:15: Daily, 0 [place] capsule 00 Refill(s) Centrum 0 Yes 1 tab, PO, [facility] Silver oral 19 Daily, # l tablet 15:15: 90 tab, 0 n 00 Refill(s) Ab Low 2022-0 Yes 81 mg = 1 [facility] Dose 81 mg 4-19 tab, PO, l oral 15:15: Daily, 0 [place] delayed 00 Refill(s) release tablet Fish Oil Yes 1,000 mg = Mem [facility] 1000 mg 4-19 1 cap, PO, l oral 15:15: Daily, 0 [place] capsule 00 Refill(s) Centrum 2021-0 Yes 1 tab, PO, [facility] Silver oral 4-19 Daily, # l tablet 15:15: 90 tab, 0 n 00 Refill(s) Ab Low Yes 81 mg = 1 [facility] Dose 81 mg 4-19 tab, PO, l oral 15:15: Daily, 0 [place] delayed 00 Refill(s) release tablet Fish Oil Yes 1,000 mg = Mem oria 1000 mg 4-19 1 cap, PO, l oral 15:15: Daily, 0 [place] capsule 00 Refill(s) Centrum Yes 1 tab, PO, Car [facility] Silver oral 4-19 Daily, # l tablet 15:15: 90 tab, 0 n 00 Refill(s) Ab Low Yes 81 mg = 1 [facility] Dose 81 mg 4-19 tab, PO, l oral 15:15: Daily, 0 [place] delayed 00 Refill(s) release tablet Fish Oil Yes 1,000 mg = [facility] 1000 mg 4-19 1 cap, PO, l oral 15:15: Daily, 0 [place] capsule 00 Refill(s) Centrum Yes 1 tab, PO, Car [facility] Silver oral 4-19 Daily, # l tablet 15:15: 90 tab, 0 n 00 Refill(s) Ab Low Yes 81 mg = 1 [facility] Dose 81 mg 4-19 tab, PO, l oral 15:15: Daily, 0 [place] delayed 00 Refill(s) release tablet Fish Oil Yes 1,000 mg = Mem o[facility] 1000 mg 4-19 1 cap, PO, l oral 15:15: Daily, 0 [place] capsule 00 Refill(s) Centrum 0 Yes 1 tab, PO, Car os[facility] Silver oral 4-19 Daily, # l tablet 15:15: 90 tab, 0 n 00 Refill(s) Ab Low 2-0 Yes 81 mg = 1 [facility] Dose 81 mg 4-19 tab, PO, l oral 15:15: Daily, 0 [place] delayed 00 Refill(s) release tablet amLODIPine 2-0 Yes 10 mg = 1 Me moria 10 mg oral 4-19 tab, PO, l tablet 15:14: Daily, # [place] 00 90 tab, 1 Refill(s) hydrALAZINE 2022-0 Yes 100 mg = 1 [facility] 100 mg oral 4-19 tab, PO, l tablet 15:14: TID, # 90 n 00 tab, 3 Refill(s) furosemide 2-0 Yes 40 mg = 1 Me moria 40 mg oral 4-19 tab, PO, l tablet 15:14: Daily, # [place] 00 90 tab, 1 Refill(s) amLODIPine 2-0 Yes 10 mg = 1 Me moria 10 mg oral 4-19 tab, PO, l tablet 15:14: Daily, # [place] 00 90 tab, 1 Refill(s) hydrALAZINE 2-0 Yes 100 mg = 1 [facility] 100 mg oral 4-19 tab, PO, l tablet 15:14: TID, # 90 n 00 tab, 3 Refill(s) furosemide 2-0 Yes 40 mg = 1 Me moria 40 mg oral 4-19 tab, PO, l tablet 15:14: Daily, # [place] 00 90 tab, 1 Refill(s) amLODIPine 2022-0 Yes 10 mg = 1 Me moria 10 mg oral 4-19 tab, PO, l tablet 15:14: Daily, # [place] 00 90 tab, 1 Refill(s) hydrALAZINE 2022-0 Yes 100 mg = 1 [facility] 100 mg oral 4-19 tab, PO, l tablet 15:14: TID, # 90 n 00 tab, 3 Refill(s) furosemide 2022-0 Yes 40 mg = 1 Me moria 40 mg oral 4-19 tab, PO, l tablet 15:14: Daily, # [place] 00 90 tab, 1 Refill(s) amLODIPine 2022-0 Yes 10 mg = 1 Me moria 10 mg oral 4-19 tab, PO, l tablet 15:14: Daily, # [place] 00 90 tab, 1 Refill(s) hydrALAZINE Yes 100 mg = 1 [facility] 100 mg oral 4-19 tab, PO, l tablet 15:14: TID, # 90 n 00 tab, 3 Refill(s) furosemide 0 Yes 40 mg = 1 Me moria 40 mg oral 4-19 tab, PO, l tablet 15:14: Daily, # [place] 00 90 tab, 1 Refill(s) amLODIPine Yes [...] BID, 0 [place] 00 Refill(s) Otezla 30 0 Yes 30 mg = 1 Mem oria mg oral 4-19 tab, PO, l tablet 15:13: BID, 0 [place] 00 Refill(s) Otezla 30 2021-0 Yes 30 mg = 1 [facility] mg oral 4-19 tab, PO, l tablet 15:13: BID, 0 [place] 00 Refill(s) Otezla 30 0 Yes 30 mg = 1 [facility] mg oral 4-19 tab, PO, l tablet 15:13: BID, 0 [place] 00 Refill(s) Otezla 30 0 Yes 30 mg = 1 [facility] mg oral 4-19 tab, PO, l tablet 15:13: BID, 0 [place] 00 Refill(s) baclofen 10 Yes = 1 tab, Me moria mg oral 3-16 PO, QPM, l tablet 14:40: PRN [place] 00 NEEDED FOR SPASMS, # 90 tab, 2 Refill(s), Pharmacy: [place] [id number] baclofen Yes = 1 tab, Me moria mg oral 3-16 PO, QPM, l tablet 14:40: PRN [place] 00 NEEDED FOR SPASMS, # 90 tab, 2 Refill(s), Pharmacy: [place] [id number] baclofen Yes = 1 tab, Me moria mg oral 3-16 PO, QPM, l tablet 14:40: PRN [place] 00 NEEDED FOR SPASMS, # 90 tab, 2 Refill(s), Pharmacy: [place] [id number] baclofen Yes = 1 tab, Me moria mg oral 3-16 PO, QPM, l tablet 14:40: PRN [place] 00 NEEDED FOR SPASMS, # 90 tab, 2 Refill(s), Pharmacy: [place] [id number] baclofen Yes = 1 tab, Me moria mg oral 3-16 PO, QPM, l tablet 14:40: PRN [place] 00 NEEDED FOR SPASMS, # 90 tab, 2 Refill(s), Pharmacy: [place] [id number] baclofen No = 1 tab, Me moria mg oral 9-01 PO, QPM, l tablet 14:41: PRN [place] 00 NEEDED FOR SPASMS, # 90 tab, 2 Refill(s), Pharmacy: [place] [id number] baclofen No = 1 tab, Me moria mg oral 9-01 PO, QPM, l tablet 14:41: PRN [place] 00 NEEDED FOR SPASMS, # 90 tab, 2 Refill(s), Pharmacy: [place] [id number] baclofen No = 1 tab, Me moria mg oral 9-01 PO, QPM, l tablet 14:41: PRN [place] 00 NEEDED FOR SPASMS, # 90 tab, 2 Refill(s), Pharmacy: [place] [id number] baclofen No = 1 tab, Me moria mg oral 9-01 PO, QPM, l tablet 14:41: PRN [place] 00 NEEDED FOR SPASMS, # 90 tab, 2 Refill(s), Pharmacy: [place] [id number] baclofen No = 1 tab, Me moria mg oral 9-01 PO, QPM, l tablet 14:41: PRN [place] 00 NEEDED FOR SPASMS, # 90 tab, 2 Refill(s), [facility] [facility] [place] [id number] baclofen 10 No 10 mg = 1 M emoria mg oral 6-10 tab, PO, l tablet 16:32: QPM, PRN [place] 00 Spasms, # 30 tab, 2 Refill(s), Pharmacy: [id number] baclofen 10 No 10 mg = 1 M emoria mg oral 6-10 tab, PO, l tablet 16:32: QPM, PRN [place] 00 Spasms, # 30 tab, 2 Refill(s), Pharmacy: [id number] baclofen 10 No 10 mg = 1 M emoria mg oral 6-10 tab, PO, l tablet 16:32: QPM, PRN [place] 00 Spasms, # 30 tab, 2 Refill(s), Pharmacy: [id number] baclofen 10 No 10 mg = 1 M emoria mg oral 6-10 tab, PO, l tablet 16:32: QPM, PRN [place] 00 Spasms, # 30 tab, 2 Refill(s), Pharmacy: [id number][id number] baclofen 10 No 10 mg = 1 M emoria mg oral 6-10 tab, PO, l tablet 16:32: QPM, PRN [place] 00 Spasms, # 30 tab, 2 Refill(s), Pharmacy: [id number][id number] Levemir Yes 130, [facility] FlexPen 4-16 SUB-Q, 0 l 15:32: Refill(s) [place] Levemir Yes 130, [facility] FlexPen 4-16 SUB-Q, 0 l 15:32: Refill(s) [place] Levemir Yes 130, [facility] FlexPen 4-16 SUB-Q, 0 l 15:32: Refill(s) [place] Levemir Yes 130, [facility] FlexPen 4-16 SUB-Q, 0 l 15:32: Refill(s) [place] Levemir 2021-0 Yes 130, [facility] FlexPen 4-16 SUB-Q, 0 l 15:32: Refill(s) lisinopril 2020-0 Yes 20 mg = 1 Me moria 20 mg oral 4-17 tab, PO, l tablet 15:50: Daily, # [place] 00 30 tab, 0 Refill(s) lisinopril 2020-0 Yes 20 mg = 1 Me moria 20 mg oral 4-17 tab, PO, l tablet 15:50: Daily, # [place] 00 30 tab, 0 Refill(s) lisinopril 2020-0 Yes 20 mg = 1 Me moria 20 mg oral 4-17 tab, PO, l tablet 15:50: Daily, # [place] 30 tab, 0 Refill(s) lisinopril 2020-0 Yes 20 mg = 1 Me moria 20 mg oral 4-17 tab, PO, l tablet 15:50: Daily, # [place] 00 30 tab, 0 Refill(s) lisinopril 2020-0 Yes 20 mg = 1 Me moria 20 mg oral 4-17 tab, PO, l tablet 15:50: Daily, # [place] 00 30 tab, 0 Refill(s) glipiZIDE glipiZIDE No glipiZIDE 10 MG 10 [...] t} 50 MCG (1999 UT) (1999) (1999) Rosuvastati Rosuvastati No 1{table Rosuvastat [...] t} 50 MCG (1999 UT) (1999) (1999) Victoza 18 Victoza 18 No [...] Yann 60 units Com mon FlexTouch FlexTouch [place] [facility] BD Pen BD Pen No BD Pen [...] 50 MCG (1999 UT) (1999 UT) (1999) Iron 325 Iron 325 [...] MCG t} 50 MCG (1999) (1999) (1999) hydrALAZINE hydrALAZINE No TID hydrALAZIN HCl [...] 50 MCG (1999 UT) (1999 UT) (1999) Iron 325 Iron 325 [...] MCG t} 50 MCG (1999) (1999) (1999) glipiZIDE glipiZIDE No glipiZIDE 10 MG [...] 1 MG 1 MG t} 1 MG Eliquis 5 Eliquis 5 2021- No Eliquis 5 mg 5 mg mg 5 mg 01-01 mg 5 mg 00:00 :00 Immunizations Ordered Immunization Filled Immunization Date Status Commen ts Source Name Name FLUZONE HIGH DOSE FLUZONE HIGH DOSE 2022-01-04 Completed [facility] OVER [facility] OVER 65 10:21:00 - [facility] FLUZONE HIGH DOSE FLUZONE HIGH DOSE 2022-01-04 Completed [facility] OVER 65 OVER 65 10:21:00 - [facility] FLUZONE HIGH DOSE FLUZONE HIGH DOSE 2022-01-04 Completed [facility] OVER 65 OVER 65 10:21:00 - [facility] FLUZONE HIGH DOSE FLUZONE HIGH DOSE 2022-01-04 Completed [facility] OVER 65 OVER 65 10:21:00 - [facility] FLUZONE HIGH DOSE FLUZONE HIGH DOSE 2022-01-04 Completed [facility] OVER 65 OVER 65 10:21:00 - [facility] FLUZONE HIGH DOSE FLUZONE HIGH DOSE 2022-01-04 Completed [facility] OVER 65 OVER 65 10:21:00 [facility] FLUZONE HIGH DOSE FLUZONE HIGH DOSE 2022-01-04 Completed [facility] OVER 65 OVER 65 10:21:00 - [facility] FLUZONE HIGH DOSE FLUZONE HIGH DOSE 2022-01-04 Completed [facility] OVER 65 OVER 65 10:21:00 - [facility] FLUZONE HIGH DOSE FLUZONE HIGH DOSE 2022-01-04 Completed [facility] OVER 65 OVER 65 10:21:00 - [facility] FLUZONE HIGH DOSE FLUZONE HIGH DOSE 2022-01-04 Completed [facility] OVER 65 OVER 65 10:21:00 - [facility] FLUZONE HIGH DOSE FLUZONE HIGH DOSE 2022-01-04 Completed [facility] OVER 65 OVER 65 10:21:00 - [facility] FLUZONE HIGH DOSE FLUZONE HIGH DOSE 2022-01-04 Completed [facility] OVER 65 OVER 65 10:21:00 - [facility] FLUZONE HIGH DOSE FLUZONE HIGH DOSE 2022-01-04 Completed [facility] OVER 65 OVER 65 10:21:00 [facility] COVID19 [facility] COVID-19 2021-01-25 [facility] (Low Dose Vaccine (Low Dose 08:40:00 - [facility] Booster[facility] Moderna COVID-19 2021-01-25 Completed [facility] Vaccine (Low Dose Vaccine (Low Dose 08:40:00 - [facility] Booster[facility] COVID-19 Moderna COVID-19 2021-01-25 Completed [facility]ine (Low Dose Vaccine (Low Dose 08:40:00 - [facility] Booster) [facility] COVID19 Moderna COVID-19 2021-01-25 Completed [facility] Vaccine (Low Dose Vaccine (Low Dose 08:40:00 - [facility] Booster[facility] Booster) [facility] COVID19 [facility] COVID19 2021-01-25 Com[facility]ine (Low Dose Vaccine (Low Dose 08:40:00 - [facility] Booster[facility] Booster) [facility] COVID19 [facility] COVID19 2021-01-25 Com[facility]ine (Low Dose Vaccine (Low Dose 08:40:00 - [facility] Booster) Booster) [facility] COVID19 [facility] COVID19 2021-01-25 Com[facility] Vaccine (Low Dose Vaccine (Low Dose 08:40:00 - [facility] Booster) Booster) [facility] COVID19 [facility] COVID19 2021-01-25 Com[facility] Vaccine (Low Dose Vaccine (Low Dose 08:40:00 - [facility] Booster) Booster) [facility] COVID19 [facility] COVID19 2021-01-25 Completed [facility] Vaccine (Low Dose Vaccine (Low Dose 08:40:00 - [facility] Booster) Booster) [facility] COVID19 [facility] COVID19 2021-01-25 Completed [facility] Vaccine (Low Dose Vaccine (Low Dose 08:40:00 - [facility] Booster) Booster) [facility] COVID19 [facility] COVID19 2021-01-25 Completed [facility] Vaccine (Low Dose Vaccine (Low Dose 08:40:00 - [facility] Booster) Booster) [facility] COVID19 [facility] COVID19 2021-01-25 Completed [facility]ine (Low Dose Vaccine (Low Dose 08:40:00 - [facility] Booster) Booster) [facility] COVID19 [facility] COVID19 2021-01-25 Completed [facility] Vaccine (Low Dose Vaccine (Low Dose 08:40:00 - [facility] Booster) Booster) [facility] COVID19 [facility] COVID19 2021-01-25 Completed [facility] (Low Dose Vaccine (Low Dose 08:40:00 - [facility] Booster) Booster) [facility] COVID19 [facility] COVID19 2021-01-25 Completed [facility] Vaccine (Low Dose Vaccine (Low Dose 08:40:00 - [facility] Booster) Booster) [facility] COVIDTabitha [facility] COVID[facility]itha 2021-01-25 Completed [facility]ine (Low Dose Vaccine (Low Dose 08:40:00 - [facility] Booster) Booster) [facility] COVIDTabitha [facility] COVID[facility]itha 2021-01-25 Completed [facility] (Low Dose Vaccine (Low Dose 08:40:00 - [facility] Booster) Booster) [facility] COVID[address] COVIDTabitha 2021-01-25 Completed [facility] Vaccine (Low Dose Vaccine (Low Dose 08:40:00 - [facility] Booster) Booster) [facility] COVIDTabitha [facility] COVID[facility]itha 2021-01-25 Completed [facility] Vaccine (Low Dose Vaccine (Low Dose 08:40:00 - [facility] Booster) Booster) [facility] COVIDTabitha [facility] COVIDTabitha 2021-01-25 Completed [facility] Vaccine (Low Dose Vaccine (Low Dose 08:40:00 [facility] [address] [facility] 2021-01-25 Com[facility] Vaccine (Low Dose Vaccine (Low Dose 08:40:00 - [facility] Booster) Booster) [facility] FLUZONE HIGH DOSE FLUZONE HIGH DOSE 2020-11-24 Completed [facility] OVER 65 OVER 65 09:39:00 [facility] FLUZONE HIGH DOSE FLUZONE HIGH DOSE 2020-11-24 Completed [facility] OVER 65 OVER 65 09:39:00 [facility] FLUZONE HIGH DOSE FLUZONE HIGH DOSE 2020-11-24 Completed [facility] OVER 65 OVER 65 09:39:00 [facility] FLUZONE HIGH DOSE FLUZONE HIGH DOSE 2020-11-24 Completed [facility] OVER 65 OVER 65 09:39:00 [facility] FLUZONE HIGH DOSE FLUZONE HIGH DOSE 2020-11-24 Completed [facility] OVER 65 OVER 65 09:39:00 [facility] FLUZONE HIGH DOSE FLUZONE HIGH DOSE 2020-11-24 Completed [facility] OVER 65 OVER 65 09:39:00 - [facility] FLUZONE HIGH DOSE FLUZONE HIGH DOSE 2020-11-24 Completed [facility] OVER 65 OVER 65 09:39:00 - [facility] FLUZONE HIGH DOSE FLUZONE HIGH DOSE 2020-11-24 Completed [facility] OVER 65 OVER 65 09:39:00 - [facility] FLUZONE HIGH DOSE FLUZONE HIGH DOSE 2020-11-24 Completed [facility] OVER 65 OVER 65 09:39:00 - [facility] FLUZONE HIGH DOSE FLUZONE HIGH DOSE 2020-11-24 Completed [facility] OVER 65 OVER 65 09:39:00 - [facility] FLUZONE HIGH DOSE FLUZONE HIGH DOSE 2020-11-24 Completed [facility] OVER 65 OVER 65 09:39:00 - [facility] FLUZONE HIGH DOSE FLUZONE HIGH DOSE 2020-11-24 Completed [facility] OVER 65 OVER 65 09:39:00 - [facility] FLUZONE HIGH DOSE FLUZONE HIGH DOSE 2020-11-24 Completed [facility] OVER 65 OVER 65 09:39:00 - [facility] FLUZONE HIGH DOSE FLUZONE HIGH DOSE 2020-11-24 Completed [facility] OVER 65 OVER 65 09:39:00 - [facility] FLUZONE HIGH DOSE FLUZONE HIGH DOSE 2020-11-24 Completed [facility] OVER 65 OVER 65 09:39:00 - [facility] FLUZONE HIGH DOSE FLUZONE HIGH DOSE 2020-11-24 Completed [facility] OVER 65 OVER 65 09:39:00 - [facility] FLUZONE HIGH DOSE FLUZONE HIGH DOSE 2020-11-24 Completed [facility] OVER 65 OVER 65 09:39:00 - [facility] FLUZONE HIGH DOSE FLUZONE HIGH DOSE 2020-11-24 Completed [facility] OVER 65 OVER 65 09:39:00 - [facility] FLUZONE HIGH DOSE FLUZONE HIGH DOSE 2020-11-24 Completed [facility] OVER 65 OVER 65 09:39:00 - [facility] FLUZONE HIGH DOSE FLUZONE HIGH DOSE 2020-11-24 Completed [facility] OVER 65 OVER 65 09:39:00 - [facility] FLUZONE HIGH DOSE FLUZONE HIGH DOSE 2020-11-24 Completed [facility] OVER 65 OVER 65 09:39:00 - [facility] FLUZONE HIGH DOSE FLUZONE HIGH DOSE 2020-11-24 Completed [facility] OVER 65 OVER 65 09:39:00 - [facility] FLUZONE HIGH DOSE FLUZONE HIGH DOSE 2020-11-24 Completed [facility] OVER 65 OVER 65 09:39:00 - [facility] FLUZONE HIGH DOSE FLUZONE HIGH DOSE 2020-11-24 Completed [facility] OVER 65 OVER 65 09:39:00 - [facility] Moderna COVID-19 Moderna COVID-19 2020-04-27 Completed [facility] Vaccine Vaccine 10:19:00 - [facility] Moderna COVID-19 Moderna COVID-19 2020-04-27 Completed [facility] Vaccine Vaccine 10:19:00 - [facility] Moderna COVID-19 Moderna COVID-19 2020-04-27 Completed [facility] Vaccine Vaccine 10:19:00 - [facility] Moderna COVID-19 Moderna COVID-19 2020-04-27 Completed [facility] Vaccine Vaccine 10:19:00 - [facility] Moderna COVID-19 Moderna COVID-19 2020-04-27 Completed [facility] Vaccine Vaccine 10:19:00 - [facility] Moderna COVID-19 Moderna COVID-19 2020-04-27 Completed [facility] Vaccine Vaccine 10:19:00 - [facility] Moderna COVID-19 Moderna COVID-19 2020-04-27 Completed [facility] Vaccine Vaccine 10:19:00 - [facility] Moderna COVID-19 Moderna COVID-19 2020-04-27 Completed [facility] Vaccine Vaccine 10:19:00 - [facility] Moderna COVID-19 Moderna COVID-19 2020-04-27 Completed [facility] Vaccine Vaccine 10:19:00 - [facility] Moderna COVID-19 Moderna COVID-19 2020-04-27 Completed [facility] Vaccine Vaccine 10:19:00 - [facility] Moderna COVID-19 Moderna COVID-19 2020-04-27 Completed [facility] Vaccine Vaccine 10:19:00 - [facility] Moderna COVID-19 Moderna COVID-19 2020-04-27 Completed [facility] Vaccine Vaccine 10:19:00 - [facility] Moderna COVID-19 Moderna COVID-19 2020-04-27 Completed [facility] Vaccine Vaccine 10:19:00 - [facility] Moderna COVID-19 Moderna COVID-19 2020-04-27 Completed [facility] Vaccine Vaccine 10:19:00 - [facility] Moderna COVID-19 Moderna COVID-19 2020-04-27 Completed [facility] Vaccine Vaccine 10:19:00 - [facility] Moderna COVID-19 Moderna COVID-19 2020-04-27 Completed [facility] Vaccine Vaccine 10:19:00 - [facility] Moderna COVID-19 Moderna COVID-19 2020-04-27 Completed [facility] Vaccine Vaccine 10:19:00 - [facility] Moderna COVID-19 Moderna COVID-19 2020-04-27 Completed [facility] Vaccine Vaccine 10:19:00 - [facility] Moderna COVID-19 Moderna COVID-19 2020-04-27 Completed [facility] Vaccine Vaccine 10:19:00 - [facility] Moderna COVID-19 Moderna COVID-19 2020-04-27 Completed [facility] Vaccine Vaccine 10:19:00 - [facility] Moderna COVID-19 Moderna COVID-19 2020-04-27 Completed [facility] Vaccine Vaccine 10:19:00 - [facility] Moderna COVID-19 Moderna COVID-19 2020-04-27 Completed [facility] Vaccine Vaccine 10:19:00 - [facility] Moderna COVID-19 Moderna COVID-19 2020-04-27 Completed [facility] Vaccine Vaccine 10:19:00 - [facility] Moderna COVID-19 Moderna COVID-19 2020-04-27 Completed [facility] Vaccine Vaccine 10:19:00 - [facility] Moderna COVID-19 Moderna COVID-19 2020-03-30 Completed [facility] Vaccine Vaccine 10:19:00 - [facility] Moderna COVID-19 Moderna COVID-19 2020-03-30 Completed [facility] Vaccine Vaccine 10:19:00 - [facility] Moderna COVID-19 Moderna COVID-19 2020-03-30 Completed [facility] Vaccine Vaccine 10:19:00 - [facility] Moderna COVID-19 Moderna COVID-19 2020-03-30 Completed [facility] Vaccine Vaccine 10:19:00 - [facility] Moderna COVID-19 Moderna COVID-19 2020-03-30 Completed [facility] Vaccine Vaccine 10:19:00 - [facility] Moderna COVID-19 Moderna COVID-19 2020-03-30 Completed [facility] Vaccine Vaccine 10:19:00 - [facility] Moderna COVID-19 Moderna COVID-19 2020-03-30 Completed [facility] Vaccine Vaccine 10:19:00 - [facility] Moderna COVID-19 Moderna COVID-19 2020-03-30 Completed [facility] Vaccine Vaccine 10:19:00 - [facility] Moderna COVID-19 Moderna COVID-19 2020-03-30 Completed [facility] Vaccine Vaccine 10:19:00 - [facility] Moderna COVID-19 Moderna COVID-19 2020-03-30 Completed [facility] Vaccine Vaccine 10:19:00 - [facility] Moderna COVID-19 Moderna COVID-19 2020-03-30 Completed [facility] Vaccine Vaccine 10:19:00 - [facility] Moderna COVID-19 Moderna COVID-19 2020-03-30 Completed [facility] Vaccine Vaccine 10:19:00 - [facility] Moderna COVID-19 Moderna COVID-19 2020-03-30 Completed [facility] Vaccine Vaccine 10:19:00 - [facility] Moderna COVID-19 Moderna COVID-19 2020-03-30 Completed [facility] Vaccine Vaccine 10:19:00 - [facility] Moderna COVID-19 Moderna COVID-19 2020-03-30 Completed [facility] Vaccine Vaccine 10:19:00 - [facility] Moderna COVID-19 Moderna COVID-19 2020-03-30 Completed [facility] Vaccine Vaccine 10:19:00 - [facility] Moderna COVID-19 Moderna COVID-19 2020-03-30 Completed [facility] Vaccine Vaccine 10:19:00 - [facility] Moderna COVID-19 Moderna COVID-19 2020-03-30 Com[facility] Vaccine 10:19:00 - [facility] Moderna COVID-19 Moderna COVID-19 2020-03-30 Completed [facility] Vaccine Vaccine 10:19:00 - [facility] Moderna COVID-19 Moderna COVID-19 2020-03-30 Completed [facility] Vaccine Vaccine 10:19:00 - [facility] Moderna COVID-19 Moderna COVID-19 2020-03-30 Completed [facility] Vaccine 10:19:00 - [facility] Moderna COVID-19 Moderna COVID-19 2020-03-30 Completed [facility] Vaccine 10:19:00 - [facility] Moderna COVID-19 Moderna COVID-19 2020-03-30 Completed [facility] Vaccine 10:19:00 - [facility] Moderna COVID-19 Moderna COVID-19 2020-03-30 Completed [facility] Vaccine 10:19:00 [facility] FluAD FluAD 2019-11-20 [facility] 09:54:00 - [facility] FluAD FluAD 2019-11-20 Completed [facility] 09:54:00 [facility] FluAD FluAD 2019-11-20 Completed [facility] 09:54:00 - [facility] FluAD FluAD 2019-11-20 Completed [facility] 09[facility]54:00 - [facility] FluAD FluAD 2019-11-20 Completed [facility] 09:54:00 - [facility] FluAD FluAD 2019-11-20 Completed [facility] 09:54:00 - [facility] FluAD FluAD 2019-11-20 Completed [facility] 09:54:00 - [facility] FluAD FluAD 2019-11-20 Completed [facility] 09[facility]54:00 - [facility] FluAD FluAD 2019-11-20 Completed [facility] 09:54:00 - [facility] FluAD FluAD 2019-11-20 Completed [facility] 09:54:00 - [facility] FluAD FluAD 2019-11-20 Completed [facility] 09:54:00 - [facility] FluAD FluAD 2019-11-20 Completed [facility] 09:54:00 - [facility] FluAD FluAD 2019-11-20 Completed [facility] 09:54:00 - [facility] FluAD FluAD 2019-11-20 Completed [facility] 09:54:00 - [facility] FluAD FluAD 2019-11-20 Completed [facility] 09:54:00 - [facility] FluAD FluAD 2019-11-20 Completed [facility] 09:54:00 - [facility] FluAD FluAD 2019-11-20 Completed [facility] 09[facility]54:00 - [facility] FluAD FluAD 2019-11-20 Completed [facility] 09:54:00 - [facility] FluAD FluAD 2019-11-20 Completed [facility] 09:54:00 - [facility] FluAD FluAD 2019-11-20 Completed [facility] 09:54:00 - [facility] FluAD FluAD 2019-11-20 Completed [facility] 09:54:00 - [facility] FluAD FluAD 2019-11-20 Completed [facility] 09:54:00 - [facility] FluAD FluAD 2019-11-20 Completed [facility] 09:54:00 - [facility] FluAD FluAD 2019-11-20 Completed [facility] 09:54:00 - [facility] Pneumovax (PPSV23) Pneumovax (PPSV23) 2017-02-27 Completed [facility] 10:19:00 [facility] Pneumovax (PPSV23) Pneumovax (PPSV23) 2017-02-27 [facility]pleted [facility] 10:19:00 [facility] Pneumovax (PPSV23) Pneumovax (PPSV23) 2017-02-27 [facility]pleted [facility] 10:19:00 [facility] Pneumovax (PPSV23) Pneumovax (PPSV23) 2017-02-27 [facility]pleted [facility] 10:19:00 [facility] Pneumovax (PPSV23) Pneumovax (PPSV23) 2017-02-27 [facility]pleted [facility] 10:19:00 [facility] Pneumovax (PPSV23) Pneumovax (PPSV23) 2017-02-27 [facility]pleted [facility] 10:19:00 - [facility] Pneumovax (PPSV23) Pneumovax (PPSV23) 2017-02-27 [facility]pleted [facility] 10:19:00 [facility] Pneumovax (PPSV23) Pneumovax (PPSV23) 2017-02-27 [facility]pleted [facility] 10:19:00 [facility] Pneumovax (PPSV23) Pneumovax (PPSV23) 2017-02-27 [facility]pleted [facility] 10:19:00 [facility] Pneumovax (PPSV23) Pneumovax (PPSV23) 2017-02-27 [facility]pleted [facility] 10:19:00 [facility] Pneumovax (PPSV23) Pneumovax (PPSV23) 2017-02-27 [facility]pleted [facility] 10:19:00 [facility] Pneumovax (PPSV23) Pneumovax (PPSV23) 2017-02-27 Completed [facility] 10:19:00 [facility] Pneumovax (PPSV23) Pneumovax (PPSV23) 2017-02-27 [facility]pleted [facility] 10:19:00 [facility] Pneumovax (PPSV23) Pneumovax (PPSV23) 2017-02-27 Completed [facility] 10:19:00 - [facility] Pneumovax (PPSV23) Pneumovax (PPSV23) 2017-02-27 [facility]pleted [facility] 10:19:00 [facility] Pneumovax (PPSV23) Pneumovax (PPSV23) 2017-02-27 Completed [facility] 10:19:00 [facility] Pneumovax (PPSV23) Pneumovax (PPSV23) 2017-02-27 [facility]pleted [facility] 10:19:00 [facility] Pneumovax (PPSV23) Pneumovax (PPSV23) 2017-02-27 [facility]pleted [facility] 10:19:00 [facility] Pneumovax (PPSV23) Pneumovax (PPSV23) 2017-02-27 Completed [facility] 10:19:00 [facility] Pneumovax (PPSV23) Pneumovax (PPSV23) 2017-02-27 Completed [facility] 10:19:00 - [facility] Pneumovax (PPSV23) Pneumovax (PPSV23) 2017-02-27 Completed [facility] 10:19:00 [facility] Pneumovax (PPSV23) Pneumovax (PPSV23) 2017-02-27 Completed [facility] 10:19:00 [facility] Pneumovax (PPSV23) Pneumovax (PPSV23) 2017-02-27 Completed [facility] 10:19:00 [facility] Pneumovax (PPSV23) Pneumovax (PPSV23) 2017-02-27 Completed [facility] 10:19:00 [facility] Vital Signs Vital Name Observation Time Observation Value Comments Source HEIGHT 2022-04-08 23:40:00 203.2 cm WEIGHT 2022-04-08 23:40:00 157.852 kg HEIGHT 2022-04-08 23:40:00 203.2 cm WEIGHT 2022-04-08 23:40:00 157.852 kg height 2022-04-06 10:50:00 77.5 [in_i] [facility] weight 2022-04-06 10:50:00 363.6 [lb_av] [facility] temperature 2022-04-06 10:50:00 97.3 [degF] Common [facility] bmi 2022-04-06 10:50:00 42.56 kg/m2 [facility] oximetry 2022-04-06 10:50:00 97 % [facility] respiratory rate 2022-04-06 10:50:00 17 /min Comm on [facility] blood pressure 2022-04-06 10:50:00 133 mm[Hg] Common [facility] systolic [facility] blood pressure 2022-04-06 10:50:00 67 mm[Hg] [facility] diastolic [facility] WEIGHT 2022-02-25 05:03:00 166.243 kg WEIGHT 2022-02-21 05:52:00 169.736 kg WEIGHT 2022-02-20 05:23:00 168.239 kg WEIGHT 2022-02-25 05:03:00 166.243 kg WEIGHT 2022-02-21 05:52:00 169.736 kg WEIGHT 2022-02-20 05:23:00 168.239 kg height 2022-02-17 11:50:00 77.5 [in_i] [facility] weight 2022-02-17 11:50:00 366.2 [lb_av] [facility] bmi 2022-02-17 11:50:00 42.86 kg/m2 [facility] height 2022-01-19 13:30:00 77.5 [in_i] [facility] weight 2022-01-19 13:30:00 366.2 [lb_av] [facility] temperature 2022-01-19 13:30:00 97.2 [degF] [facility] bmi 2022-01-19 13:30:00 42.86 kg/m2 [facility] oximetry 2022-01-19 13:30:00 98 % [facility] respiratory rate 2022-01-19 13:30:00 18 /min Comm on [facility] blood pressure 2022-01-19 13:30:00 138 mm[Hg] Common [facility] - systolic [facility] blood pressure 2022-01-19 13:30:00 70 mm[Hg] Common [facility] - diastolic [facility] height 2022-01-04 10:00:00 77.5 [in_i] Common [facility] weight 2022-01-04 10:00:00 365.3 [lb_av] [facility] temperature 2022-01-04 10:00:00 97.9 [degF] [facility] bmi 2022-01-04 10:00:00 42.76 kg/m2 [facility] oximetry 2022-01-04 10:00:00 98 % [facility] respiratory rate 2022-01-04 10:00:00 18 /min Comm on [facility] blood pressure 2022-01-04 10:00:00 137 mm[Hg] Common [facility] - systolic [facility] blood pressure 2022-01-04 10:00:00 81 mm[Hg] Common [facility] diastolic [facility] height 2021-11-04 10:30:00 77.5 [in_i] Common [facility] weight 2021-11-04 10:30:00 365 [lb_av] [facility] temperature 2021-11-04 10:30:00 97.3 [degF] [facility] bmi 2021-11-04 10:30:00 42.72 kg/m2 [facility] oximetry 2021-11-04 10:30:00 94 % [facility] respiratory rate 2021-11-04 10:30:00 18 /min Comm on [facility] blood pressure 2021-11-04 10:30:00 122 mm[Hg] [facility] - systolic [facility] blood pressure 2021-11-04 10:30:00 76 mm[Hg] [facility] - diastolic [facility] height 2021-11-04 10:40:00 77.5 [in_i] [facility] weight 2021-11-04 10:40:00 365 [lb_av] [facility] temperature 2021-11-04 10:40:00 97.3 [degF] [facility] bmi 2021-11-04 10:40:00 42.72 kg/m2 Common [facility] oximetry 2021-11-04 10:40:00 94 % [facility] respiratory rate 2021-11-04 10:40:00 18 /min Comm on [facility] blood pressure 2021-11-04 10:40:00 122 mm[Hg] Common [facility] - systolic [facility] blood pressure 2021-11-04 10:40:00 76 mm[Hg] [facility] - diastolic [facility] height 2021-10-04 09:50:00 80 [in_i] Common [facility] weight 2021-10-04 09:50:00 365.0 [lb_av] [facility] temperature 2021-10-04 09:50:00 96.9 [degF] [facility] bmi 2021-10-04 09:50:00 40.09 kg[facility]2 [facility]-10-04 09:50:00 97 % [facility] respiratory rate 2021-10-04 09:50:00 18 /min Comm on [facility] blood pressure 2021-10-04 09:50:00 139 mm[Hg] Common [facility] - systolic [facility] blood pressure 2021-10-04 09:50:00 63 mm[Hg] [facility] - diastolic [facility] HEIGHT 2021-09-29 08:12:00 203.2 cm WEIGHT 2021-09-29 08:12:00 167.831 kg HEIGHT 2021-09-29 08:12:00 203.2 cm WEIGHT 2021-09-29 08:12:00 167.831 kg HEIGHT 2021-09-23 15:02:00 203.2 cm WEIGHT 2021-09-23 15:02:00 167.831 kg HEIGHT 2021-09-23 15:02:00 203.2 cm WEIGHT 2021-09-23 15:02:00 167.831 kg height 2021-08-31 11:20:00 80 [in_i] [facility] weight 2021-08-31 11:20:00 371.2 [lb_av] [facility] temperature 2021-08-31 11:20:00 97.9 [degF] [facility] bmi 2021-08-31 11:20:00 40.77 kg/m2 [facility] oximetry 2021-08-31 11:20:00 97 % [facility] respiratory rate 2021-08-31 11:20:00 17 /min Comm on [facility] blood pressure 2021-08-31 11:20:00 132 mm[Hg] [facility] - systolic [facility] blood pressure 2021-08-31 11:20:00 75 mm[Hg] [facility] - diastolic [facility] height 2021-05-17 09:20:00 80 [in_i] [facility] weight 2021-05-17 09:20:00 371.5 [lb_av] [facility] temperature 2021-05-17 09:20:00 97.8 [degF] [facility] bmi 2021-05-17 09:20:00 40.81 kg/m2 [facility] oximetry 2021-05-17 09:20:00 98 % [facility] respiratory rate 2021-05-17 09:20:00 19 /min Comm on [facility] blood pressure 2021-05-17 09:20:00 138 mm[Hg] Common [facility] - systolic [facility] blood pressure 2021-05-17 09:20:00 68 mm[Hg] Common [facility] - diastolic [facility] height 2021-02-16 08:50:00 80 [in_i] Common [facility] weight 2021-02-16 08:50:00 378.3 [lb_av] Common [facility] temperature 2021-02-16 08:50:00 97.7 [degF] Common [facility] bmi 2021-02-16 08:50:00 41.55 kg/m2 [facility] oximetry 2021-02-16 08:50:00 97 % [facility] respiratory rate 2021-02-16 08:50:00 18 /min Comm on [facility] blood pressure 2021-02-16 08:50:00 133 mm[Hg] Common [facility] - systolic [facility] blood pressure 2021-02-16 08:50:00 65 mm[Hg] Common [facility] - diastolic [facility] height 2020-11-24 08:40:00 80 [in_i] [facility] weight 2020-11-24 08:40:00 372.8 [lb_av] Common [facility] temperature 2020-11-24 08:40:00 96.8 [degF] Common [facility] bmi 2020-11-24 08:40:00 40.95 kg/m2 [facility] oximetry 2020-11-24 08:40:00 96 % [facility] respiratory rate 2020-11-24 08:40:00 20 /min Comm on [facility] blood pressure 2020-11-24 08:40:00 138 mm[Hg] Common [facility] - systolic [facility] blood pressure 2020-11-24 08:40:00 82 mm[Hg] Common [facility] - diastolic [facility] height 2020-11-24 09:00:00 80 [in_i] [facility] weight 2020-11-24 09:00:00 372.8 [lb_av] [facility] temperature 2020-11-24 09:00:00 96.8 [degF] [facility] bmi 2020-11-24 09:00:00 40.95 kg/m2 [facility] oximetry 2020-11-24 09:00:00 96 % [facility] respiratory rate 2020-11-24 09:00:00 20 /min Comm on [facility] blood pressure 2020-11-24 09:00:00 138 mm[Hg] [facility] - systolic [facility] blood pressure 2020-11-24 09:00:00 82 mm[Hg] [facility] - diastolic [facility] Systolic blood 2022-02-26 07:00:00 169 mm[Hg] [facility] Diastolic blood 2022-02-26 07:00:00 77 mm[Hg] [facility] Heart rate 2022-02-26 07:00:00 95 /min [facility] Body temperature 2022-02-26 07:00:00 36.67 Saumya [facility] Respiratory rate 2022-02-26 07:00:00 20 /min [facility] Oxygen saturation in 2022-02-26 07:00:00 97 /min [facility] Arterial blood by [facility] Pulse oximetry Body weight 2022-02-25 05:03:00 166.243 kg [facility] BMI 2022-02-25 05:03:00 40.26 kg/m2 [facility] Heart rate 2021-09-30 12:01:00 92 /min [facility] Systolic blood 2021-09-30 12:00:00 153 mm[Hg] [facility] Diastolic blood 2021-09-30 12:00:00 68 mm[Hg] [facility] Body temperature 2021-09-30 12:00:00 36.17 Saumya [facility] Respiratory rate 2021-09-30 12:00:00 17 /min [facility] Oxygen saturation in 2021-09-30 12:00:00 95 /min [facility] Arterial blood by [facility] Pulse oximetry Body height 2021-09-29 08:12:00 203.2 cm [facility] Body weight 2021-09-29 08:12:00 167.831 kg [facility] BMI 2021-09-29 08:12:00 40.65 kg/m2 [facility] Systolic (mm Hg) 2021-06-15 15:07:00 Car Dawkins Diastolic (mm Hg) 2021-06-15 15:07:00 Mariam Dawkins Heart Rate 2021-06-15 15:07:[address] [facility] Respitory Rate 2021-06-15 15:07:00 Rigoberto Sutton Height 2021-06-15 15:07:[address] [facility] Weight 2021-06-15 15:07:[address] [facility] BMI Calculated 2021-06-15 15:07:00 Rigoberto Sutton Procedures Procedure Date / Time Performing Clinician Source Performed POCT-GLUCOSE METER 2022-02-26 07:37:00 Eligio Roach [facility] MAGNESIUM 2022-02-26 04:37:00 Luis Lay [facility] POCT-GLUCOSE METER 2022-02-25 22:51:00 Eligio Roach [facility] POCT-GLUCOSE METER 2022-02-25 21:36:00 Mateo Eligio [facility] POCT-GLUCOSE METER 2022-02-25 17:18:00 Eligio Roach [facility] P.E.T./CT WHOLE BODY PI 2022-02-25 13:31:00 Yvonne Bolton [facility] POCT-GLUCOSE METER 2022-02-25 11:23:00 Mateo [facility] BASIC METABOLIC PANEL 2022-02-25 10:28:00 Mateo [facility] POCT-GLUCOSE METER 2022-02-25 08:03:00 Mateo [facility] SARS-COV2/RT-PCR ([facility] & 2022-02-25 07:52:00 Garret Lovett [facility] REF LABS) [facility] CBC W/PLT COUNT & AUTO 2022-02-25 04:35:00 Mateo [facility] BASIC METABOLIC PANEL 2022-02-25 04:35:00 Mateo [facility] CBC W/PLT COUNT & AUTO 2022-02-25 04:35:00 Mateo [facility] POCT-GLUCOSE METER 2022-02-24 21:12:00 Mateo [facility] POCT-GLUCOSE METER 2022-02-24 17:46[facility] 2022-02-24 11:32:00 Mateo [facility] POCT-GLUCOSE METER 2022-02-24 08:24:00 Mateo [facility] CBC W/PLT COUNT & AUTO 2022-02-24 04:59:00 Mateo [facility] BASIC METABOLIC PANEL 2022-02-24 04:59:00 Mateo [facility] HEPATIC FUNCTION PANEL 2022-02-24 04:59:00 Reagan Concepcion [facility] CBC W/PLT COUNT & AUTO 2022-02-24 04:59:00 Mateo [facility] POCT-GLUCOSE METER 2022-02-23 19:54:00 Mateo [facility] POCT-GLUCOSE METER 2022-02-23 17:19:00 [facility] VIEW PORTABLE / 2022-02-23 16:05:00 Eligio Roach [facility] SODIUM, RANDOM URINE 2022-02-23 13:21:00 Tyler Nicki Rocio [facility] POCT-GLUCOSE METER 2022-02-23 12:03:00 [facility] TRANSESOPHAGEAL ECHO 2022-02-23 09:33:22 Mateo [facility] POCT-GLUCOSE METER 2022-02-23 07:09:00 Mateo [facility] CBC W/PLT COUNT & AUTO 2022-02-23 04:23:00 Mateo [facility] BASIC METABOLIC PANEL 2022-02-23 04:23:00 Mateo [facility] CBC W/PLT COUNT & AUTO 2022-02-23 04:23:00 [facility] 2022-02-23 04:23:00 Eligio Roach [facility] POCT-GLUCOSE METER 2022 21:19:00 Mateo [facility] POCT-GLUCOSE METER 2022 17:14:00 Mateo [facility] POCT-GLUCOSE METER 2022 14:47:00 [facility] REPORT OF PROCEDURE - 2022 14:08:04 Geneva Jhaveri [facility] ENDOSCOPY [facility] EGD 2022 13:49:00 Geneva Jhaveri [facility] (ESOPHAGOGASTRODUODENOSCOP [facility] Y) POCT-GLUCOSE METER 2022 12:10:00 Mateo [facility] COLOR-FLOW MAPPING 2022 11:59:49 Mateo, [facility] CONT WAVE PULSED DOPPLER 2022 11:59:49 Mateo [facility] POCT-GLUCOSE METER 2022 08:29:00 Mateo [facility] CBC W/PLT COUNT & AUTO 2022 04:35:00 Mateo [facility] BASIC METABOLIC PANEL 2022 04:35:00 Mateo [facility] ALPHA FETOPROTEIN (AFP), 2022 04:35:00 Margarita [facility] TUMOR MARKER [facility] CBC W/PLT COUNT & AUTO 2022 04:35:00 Mateo [facility] POCT-GLUCOSE METER 2022-02-21 23:15:00 Mateo [facility] POCT-GLUCOSE METER 2022-02-21 21:26:00 Mateo [facility] POCT-GLUCOSE METER 2022-02-21 17:27:00 Mateo [facility] HEPATITIS B CORE ANTIBODY, 2022-02-21 16:20:00 Jeremy Avila [facility] HEPATITIS A ANTIBODY, IGG 2022-02-21 16:20:00 Jeremy Avila [facility] HEPATITIS B SURFACE 2022-02-21 16:20:00 Margarita [facility] ANTIBODY [facility] HEPATITIS B SURFACE 2022-02-21 16:20:00 [facility] ANTIGEN [facility] HEPATITIS C ANTIBODY 2022-02-21 16:20:00 Margarita [facility] FERRITIN 2022-02-21 16:20:00 Margarita [facility] CERULOPLASMIN 2022-02-21 16:19:00 Margarita [facility] IRON, TIBC, % SAT. 2022-02-21 16:19:00 Dadlani, [facility] kes (WITHOUT FERRITIN) [facility] [id number], 2022-02-21 16:19:00 Margarita [facility] ANTI-NUCLEAR ANTIBODY 2022-02-21 16:19:00 Jeremy Avila [facility] (ARACELIS) [facility] ANTI-MITOCHONDRIAL AB, 2022-02-21 16:19:00 Jeremy Avila [facility] REFLEX TO TITER [facility] ACTIN (SMOOTH MUSCLE) 2022-02-21 16:19:[address] [facility] ANTIBODY, IGG [facility] PHOSPHATIDYLETHANOL, BLOOD 2022-02-21 16:19:00 Jeremy Avila [facility] MITOCHONDRIAL AB SCREEN 2022-02-21 16:19:00 Margarita [facility] MITOCHONDRIAL AB TITER 2022-02-21 16:19:00 Jeremy Avila [facility] POCT-GLUCOSE METER 2022-02-21 12:53:00 Mateo [facility] POCT-GLUCOSE METER 2022-02-21 07:27:00 Mateo [facility] CT ABDOMEN/PELVIS WITH IV 2022-02-21 01:11:00 Avelina Das [facility] POCT-GLUCOSE METER 2022-02-20 20:27:00 Mateo [facility] POCT-GLUCOSE METER 2022-02-20 17:29:00 Mateo [facility] URINALYSIS W/ REFLEX URINE 2022-02-20 16:55:00 Avelina Das [facility] CULTURE [facility] POCT-GLUCOSE METER 2022-02-20 12:19:00 Mateo [facility] POCT-GLUCOSE METER 2022-02-20 08:18:00 Mateo [facility] BASIC METABOLIC PANEL 2022-02-20 06:02:00 Garret [facility] HEPATIC FUNCTION PANEL 2022-02-20 06:02:00 BonyGarret hardin [facility] S [facility] MAGNESIUM 2022-02-20 06:02:00 [facility] W/PLT COUNT & AUTO 2022-02-20 03:25:00 BonyGarret hardin [facility] DIFFERENTIAL [facility] CBC W/PLT COUNT & AUTO 2022-02-20 03:25:00 BonyGarret [facility] S [facility] DIFFERENTIAL [facility] POCT-GLUCOSE METER 2022-02-19 21:03:00 [facility] POCT-GLUCOSE METER 2022-02-19 17:26:00 [facility] RESPIRATORY PANEL 2022-02-19 13:20:[address] [facility] POCT-GLUCOSE METER 2022-02-19 12:24:00 Mateo POCT-GLUCOSE METER 2022-02-19 07:42:00 [facility] BASIC METABOLIC PANEL 2022-02-19 04:31:[address] [facility] HEPATIC FUNCTION PANEL 2022-02-19 04:31:[address] [facility] [facility] MAGNESIUM 2022-02-19 04:31:[address] [facility] CBC W/PLT COUNT & AUTO 2022-02-19 04:31:00 BonyGarret [facility] DIFFER[facility] CBC W/PLT COUNT & AUTO 2022-02-19 04:31:00 BonyGarret [facility] S t [facility] DIFFERENTIAL [facility] POCT-GLUCOSE METER 2022-02-18 20:51:00 [facility] VANCOMYCIN LEVEL, RANDOM 2022-02-18 20:38:00 Lubna Piña [facility] POCT-GLUCOSE METER 2022-02-18 18:08:00 Eligio Roach [facility] CT CHEST WITHOUT IV 2022-02-18 17:00:00 [facility] PNEUMONIAE ANTIGEN 2022-02-18 16:26:00 [facility] W/ DOPPLER 2022-02-18 14:12:40 Robert Piña [facility] (CW/PW/COLOR) [facility] POCT-GLUCOSE METER 2022-02-18 13:28:00 [facility] SARS-COV2/RT-PCR ([facility] & 2022-02-18 10:42:00 Bony [facility] REF LABS) [facility] BLOOD CULTURE 2022-02-18 10:42:00 [facility] 2022-02-18 10:16:00 Eduin [facility] XR CHEST 1 VIEW PORTABLE / 2022-02-18 08:08:00 Brunilda Denny [facility] PROTHROMBIN TIME/INR 2022-02-18 04:23:[address] [facility] BASIC METABOLIC PANEL 2022-02-18 04:22:[address] [facility] HEPATIC FUNCTION PANEL 2022-02-18 04:22:00 [facility] HEMO[facility] A1C 2022-02-18 04:22:00 Bony, [facility] LIPID PANEL 2022-02-18 04:22:[address] [facility] MAGNESIUM 2022-02-18 04:22:[address] [facility] PHOSPHORUS 2022-02-18 04:22:[address] [facility] CBC W/PLT COUNT & AUTO 2022-02-18 04:22:00 BonyGarret [facility] DIFFERENTIAL [facility] CBC W/PLT COUNT & AUTO 2022-02-18 04:22:00 Garret Lovett [facility] Ronna DIFFERENTIAL [facility] 2D ECHO W/ DOPPLER 2021-09-30 09:27:27 Lilian Deleon [facility] (CW/PW/COLOR) [facility] POCT-GLUCOSE METER 2021-09-30 06:55:00 Lilian Deleon [facility] XR CHEST 1 VIEW PORTABLE / 2021-09-30 05:37:00 Joseph Rodriguez [facility] BASIC METABOLIC PANEL 2021-09-30 04:22:00 [facility] ([facility] ONLY[facility] 2021-09-30 04:22:00 Joseph Rodriguez [facility] ECG 12-LEAD 2021-09-30 03:41:43 Jennifer [facility] POCT-GLUCOSE METER 2021-09-29 20:57:00 Lilian Deleon [facility] POCT-ACT 2021-09-29 16:03:00 Adrienne Lilian [facility] POCT-GLUCOSE METER 2021-09-29 16:00:00 Lilian Deleon [facility] ECG 12-LEAD 2021-09-29 15:42:23 Joseph Rodriguez [facility] ECG 12-LEAD 2021-09-29 15:42:23 Unknown, Hl7 [facility] PREPARE RBC 2021-09-29 15:30:00 Lilian Deleon [facility] POCT-ACT 2021-09-29 15:00:00 Adrienne Lilian [facility] POCT-ACT 2021-09-29 14:01:00 Lilian Deleon [facility] IMPLANTATION, AORTIC 2021-09-29 11:28:00 Lilian Deleon [facility] VALVE, TRANSCATHETER [facility] ter TRANSESOPHAGEAL ECHO 2021-09-29 10:44:47 Lilian Deleon [facility] CONT WAVE PULSED DOPPLER 2021-09-29 10:23:49 Lilian Deleon [facility] COLOR-FLOW MAPPING 2021-09-29 10:23:[address] [facility] ABORH, MANUAL 2021-09-29 09:00:00 Lilian Deleon [facility] CARDIAC CATH REPORT - SCAN 2021-09-29 00:00:00 ProviderEdis [facility] CBC W/PLT COUNT & AUTO 2021-09-23 15:11:00 Lilian Deleon [facility] COMPREHENSIVE METABOLIC 2021-09-23 15:11:[address] [facility] PANEL [facility] B-TYPE NATRIURETIC FACTOR 2021-09-23 15:11:[address] [facility] (BNP) [facility] PROTHROMBIN TIME/INR 2021-09-23 15:11:00 Lilian Deleon [facility] TYPE AND SCREEN, AUTOMATED 2021-09-23 15:11:00 Lilian Deleon [facility] CBC W/PLT COUNT & AUTO 2021-09-23 15:11:00 Lilian Deleon [facility] S t [facility] Plan of Care Planned Activity Planned [...] Cessation Counseling and Screening (12+)] Future Scheduled 2022-02-[address] [facility] 00:00:00 (12+) [code = Medical Center DEPRESSION SCREENING (12+)] Future Scheduled 2022-02-27 FALLS RISK SCREENING [facility] 00:00:00 [code = FALLS RISK Medical C enter SCREENING] Future Scheduled 2021-10-28 INFLUENZA VACCINE (#1) C [...] [facility] 00:00:00 measurement (procedure) [facility] [code = 03668092] Future Scheduled 2021-09-[address] [facility] 00:00:00 measurement (procedure) [facility] [code = 31701931] Future Scheduled 2021-09-[address] [facility] 00:00:00 measurement (procedure) [facility] [code = 56729193] Future Scheduled 2021-09-[address] [facility] 00:00:00 measurement (procedure) [facility] [code = 35684800] Future Scheduled 2021-05-25 COVID-19 VACCINE (4 - [...] screening Medical C enter (procedure) [code = 347497767] Future Scheduled 2012-02-[address] [facility] Test 00:00:00 aneurysm screening Medical C enter (procedure) [code = 507398534] Future Scheduled 2012-02-[address] [facility] Test 00:00:00 aneurysm screening Medical C enter (procedure) [code = 017562006] Future Scheduled 1997 SHINGLES VACCINES (1 of [...] 00:00:00 examination Medical Center (regime/therapy) [code = 457826670] Future Scheduled 1957 Urine screening for [facility] 00:00:00 protein (procedure) Medical Center [code = 727501195] Future Scheduled 1957 DIABETIC EYE EXAM [code [facility] 00:00:00 = DIABETIC EYE EXAM] Medical Center Future Scheduled [address] [facility] 00:00:00 examination Medical Center (regime/therapy) [code = 660069764] Future Scheduled 1957 Urine screening for [facility] 00:00:00 protein (procedure) Medical Center [code = 986181423] Future Scheduled 1957 DIABETIC EYE EXAM [code [facility] 00:00:00 = DIABETIC EYE EXAM] Medical Center Future Scheduled [address] [facility] 00:00:00 examination Medical Center (regime/therapy) [code = 908233291] Future Scheduled 1957 Urine screening for [facility] 00:00:00 protein (procedure) Medical Center [code = 353433913] Future Scheduled 1957 DIABETIC EYE EXAM [code [facility] 00:00:00 = DIABETIC EYE EXAM] Medical Center Future Scheduled [address] [facility] 00:00:00 examination Medical Center (regime/therapy) [code = 046086143] Future Scheduled 1957 Urine screening for [facility] 00:00:00 protein (procedure) Medical Center [code = 281621857] Future Scheduled 1953 PNEUMOCOCCAL 65+ YRS ([address] [facility] 00:00:00 - PCV) [code = Medical Cente r PNEUMOCOCCAL 65+ YRS (1 - PCV)] Future Scheduled 1947 COVID-19 VACCINE (#1) [facility] 00:00:00 [code = COVID-[address] VACCINE (#1)] Future Scheduled 1947 CT Colonography (combo) [facility] 00:00:00 [code = CT Colonography [facility] (combo)] Future Scheduled 1947 Screening for malignant [facility] 00:00:00 neoplasm of colon Medical Ce nter (procedure) [code = 046690277] Future Scheduled 1947 Screening for malignant [facility] 00:00:00 neoplasm of colon Medical Ce nter (procedure) [code = 108187638] Future Scheduled 1947 Screening for malignant [facility] 00:00:00 neoplasm of colon Medical Ce nter (procedure) [code = 830871659] Future Scheduled 1947 Screening for malignant [facility] 00:00:00 neoplasm of colon Medical Ce nter (procedure) [code = 007330737] Future Scheduled 1947 Sigmoidoscopy [code = [facility] Sigmoidoscopy] Medical Cente r Future Scheduled 1947 CT Colonography (combo) [facility] 00:00:00 [code = CT Colonography [facility] (combo)] Future Scheduled 1947 Screening for malignant [facility] 00:00:00 neoplasm of colon Medical Ce nter (procedure) [code = 645283751] Future Scheduled 1947 Screening for malignant [facility] 00:00:00 neoplasm of colon Medical Ce nter (procedure) [code = 672338791] Future Scheduled 1947 Screening for malignant [facility] 00:00:00 neoplasm of colon Medical Ce nter (procedure) [code = 014026670] Future Scheduled 1947 Screening for malignant [facility] 00:00:00 neoplasm of colon Medical Ce nter (procedure) [code = 382675997] Future Scheduled 1947 Sigmoidoscopy [code = [facility] 00:00:00 Sigmoidoscopy] Medical Cente r Future Scheduled 1947 CT Colonography (combo) [facility] 00:00:00 [code = CT Colonography [facility] (combo)] Future Scheduled 1947 Screening for malignant [facility] 00:00:00 neoplasm of colon Medical Ce nter (procedure) [code = 217666459] Future Scheduled 1947 Screening for malignant [facility] 00:00:00 neoplasm of colon Medical Ce nter (procedure) [code = 610285841] Future Scheduled 1947 Screening for malignant [facility] 00:00:00 neoplasm of colon Medical Ce nter (procedure) [code = 603974019] Future Scheduled 1947 Screening for malignant [facility] 00:00:00 neoplasm of colon Medical Ce nter (procedure) [code = 199759656] Future Scheduled 1947 Sigmoidoscopy [code = [facility] 00:00:[facility] Sigmoidoscopy] Medical Cente r Future Scheduled 1947 CT Colonography (combo) [facility] 00:00:00 [code = CT Colonography [facility] (combo)] Future Scheduled 1947 Screening for malignant [facility] 00:00:00 neoplasm of colon Medical Ce nter (procedure) [code = 643709165] Future Scheduled 1947 Screening for malignant [facility] 00:00:00 neoplasm of colon Medical Ce nter (procedure) [code = 547932763] Future Scheduled 1947 Screening for malignant [facility] 00:00:00 neoplasm of colon Medical Ce nter (procedure) [code = 836568703] Future Scheduled 1947 Screening for malignant [facility] 00:00:00 neoplasm of colon Medical Ce nter (procedure) [code = 910615776] Future Scheduled 1947 Sigmoidoscopy [code = [facility] Sigmoidoscopy] Medical Cente r Encounters Start End Encounter Admission Attending Care Care Encounter Source Date/Time Date/Time Type Type Clinicians Facility Department ID 2022-10-10 Outpatient [place], [facility] [id number] Common 11:36:00 Yann [id number] [facility] 2022-04-26 Outpatient West, [facility] [id number] Common 10:34:00 Yann [id number] [facility] 2022-04-04 Outpatient [place], [facility] [id number] Common 09:02:01 Yann [id number] [facility] 2022-03-31 Outpatient West, [facility] [id number] Common 11:10:01 Yann [id number] [facility] 2022-03-11 Outpatient [place], [facility] [id number] Common 16:26:00 Yann [id number] [facility] 2022-02-17 Outpatient West, STLMLC STLMLC [id number] Common 10:29:01 Yann [facility] 2022-01-18 Outpatient West, STLMLC STLMLC [id number] Common 08:51:01 Yann [facility] 2021-12-31 Outpatient West, STLMLC STLMLC [id number] Common 10:27:01 Yann [facility] 2021-05-17 Outpatient West, STLMLC STLMLC [id number] Common 09:00:01 Yann [facility] 2021-05-14 Outpatient West, STLMLC STLMLC [id number] Common 10:41:02 Yann [facility] 2021-03-24 Outpatient West, STLMLC STLMLC [id number] Common 14:26:44 Yann [id number] [facility] 2021-03-24 Outpatient West, STLMLC STLMLC Common 13:19:52 Yann [id number] [facility] 2021-03-24 Outpatient West, STLMLC STLMLC Common 13:09:16 Yann [id number] [facility] 2021-03-24 Outpatient West, STLMLC STLMLC [id number] Common 12:43:25 Yann 07905 [facility] 2021-03-24 Outpatient West, STLMLC STLMLC [id number] Common 12:42:35 Yann [id number] [facility] 2021-03-24 Outpatient West, STLMLC STLMLC [id number] Common 12:42:21 Yann [id number] [facility] 2021-03-24 Outpatient West, STLMLC STLMLC [id number] Common 11:17:23 Yann [id number] [facility] 2021-03-24 Outpatient West, STLMLC STLMLC [id number] Common 11:15:43 Yann [id number] [facility] 2021-03-24 Outpatient West, STLMLC STLMLC [id number] Common 11:15:21 Yann [id number] [facility] 2021-03-24 Outpatient West, STLMLC STLMLC [id number] Common 11:00:50 Yann [id number] [facility] 2023-06-16 2023-06-16 Outpatient MHIE MHIE [id number] Memoria 10:30:00 10:30:00 08 david Cowan 2022-06-15 2022-06-15 Outpatient MHIE MHIE [id number] Memoria 10:00:00 10:00:00 07 l Cowan 2022-06-15 2022-06-15 Outpatient MHIE MHIE [id number] Memoria 10:00:00 10:00:00 07 david Cowan 2022-04-08 2022-04-20 [facility] [id number] SLE 23:18:00 18:40:00 YASHASH 2022-04-06 2022-04-06 OFFICE STLMLC STLMLC [id number] Co mmon 00:00:00 00:00:00 VISIT [facility] LEVEL 4 [facility] 2022-03-16 2022-03-16 (TEL) STLMLC STLMLC [id number] Co mmon 00:00:00 00:00:00 [facility] 2022-03-03 2022-03-03 (TEL) STLMLC STLMLC [id number] Co mmon 00:00:00 00:00:00 [facility] 2022-03-01 2022-03-01 (TEL) STLMLC STLMLC [id number] Co mmon 00:00:00 00:00:00 [facility] 2022-02-18 2022-02-26 Hospital ER Sudeep Denny [facility] [id number] 00:32:00 10:10:00 Encounter Mateo Eligio [facility] 2022-02-18 2022-02-26 Inpatient ER RIGO ROACH Internal [id number] SLE 00:32:00 10:10:00 ELIGIO Med 2022 2022 Anesthesia Leigh Mejia [facility] [id number] 13:59:00 14:24:[address] [facility] 2022 2022 Surgery Shakila, [facility] [id number] 13:18:00 14:08:00 [facility] 2022 2022 Travel [facility] [id number] [facility] 00:00:00 00:00:00 [facility] 2022-02-17 2022-02-17 OFFICE STLMLC STLMLC [id number] Co mmon 00:00:00 00:00:00 VISIT EST Spir it PT LEVEL 3 - [facility] 2022-02-17 2022-02-17 (TEL) STLMLC STLMLC [id number] Co mmon 00:00:00 00:00:00 [facility] 2022-02-16 2022-02-16 (TEL) STLMLC STLMLC [id number] Co mmon 00:00:00 00:00:00 [facility] 2022-02-03 2022-02-03 (TEL) STLMLC STLMLC [id number] Co mmon 00:00:00 00:00:00 [facility] 2022-02-01 2022-02-01 (TEL) STLMLC STLMLC [id number] Co mmon 00:00:00 00:00:00 [facility] 2022-01-19 2022-01-19 (HOSP F/U) STLMLC STLMLC [id number] Common 00:00:00 00:00:00 [facility] 2022-01-17 2022-01-17 (TEL) STLMLC STLMLC [id number] Co mmon 00:00:00 00:00:00 [facility] 2022-01-10 2022-01-10 (TEL) STLMLC STLC [id number] Co mmon 00:00:00 00:00:00 [facility] 2022-01-04 2022-01-04 OFFICE STLMLC STLMLC [id number] Co mmon 00:00:00 00:00:00 VISIT Spirit ESTAB PT - CHI LEVEL 4 [facility] 2021-11-04 2021-11-04 OFFICE STLMLC STLC [id number] Co mmon 00:00:00 00:00:00 VISIT Spirit ESTAB PT - CHI LEVEL 4 [facility] 2021-11-04 2021-11-04 [facility] [id number] Common 00:00:00 00:00:00 MCR [facility] WELLNESS - CHI VISIT [facility] 2021-10-26 2021-10-26 Telephone Antonino [facility] [id number] 00:00:00 00:00:00 [facility] 2021-10-11 2021-10-11 Documentat Miguel [facility] [id number] 00:00:00 00:00:[address] [facility] 2021-10-04 2021-10-04 (HOSP F/U) [facility] [id number] Common 00:00:00 00:00:00 [facility] Follow Up - [facility] 2021-10-01 2021-10-01 (TEL) [facility] [id number] Co mmon 00:00:00 00:00:00 [facility] 2021-09-29 2021-09-30 Hospital VALDEMAR Deleon [facility] [id number] 08:04:00 13:30:00 Encounter [facility] 2021-09-29 2021-09-30 Inpatient VALDEMAR DELEON [facility] Surgery [id number] SLE 08:04:00 13:30:00 [facility] 2021-09-29 2021-09-29 Surgery Adrienne [facility] [id number] 12:28:00 16:43:00 [facility] 2021-09-29 2021-09-29 Anesthesia Ally, [facility] [id number] 11:41:00 15:31:00 Event Geovani [facility] 2021-09-29 2021-09-29 Travel [facility] [id number] [facility] 00:00:00 00:00:00 [facility] 2021-09-23 2021-09-23 Office VALDEMAR Killian, [facility] [id number] 15:00:00 15:30:00 Visit Kartik [facility] 2021-09-23 2021-09-23 Outpatient RIGO JOEL SLE [id number] SLE 15:05:44 15:05:44 KARTIK 2021-09-23 2021-09-23 Orders Blayne [facility] [id number] 00:00:00 00:00:00 Only Bernard[facility] 2021-08-31 2021-08-31 OFFICE [facility] [id number] Co mmon 00:00:00 00:00:00 VISIT Ronak MCALLISTER PT - CHI LEVEL 4 [facility] 2021-08-24 2021-08-24 Outpatient LUIS Victor [facility] [id number] [facility] 09:27:00 09:27:00 Olclotilde [id number] [facility] 2021-08-24 2021-08-24 Outpatient LUIS Victor [facility] [id number] 09:27:00 09:27:00 Olanike 01 [facility] 2021-08-16 2021-08-16 (TEL) STLC STLC [id number] Co mmon 00:00:00 00:00:00 Spirit - ALTAGRACIA [facility] 2021-06-15 2021-06-16 Outpatient nullFlavo MNA [id number] Memoria 15:30:00 04:59:59 r Neurology 06 l [place] 2021-06-15 2021-06-16 Outpatient nullFlavo MNA [id number] Memoria 15:30:00 04:59:59 r Neurology 06 l [place] 2021-06-15 2021-06-15 [facility] [id number] 10:30:00 23:59:59 Sam Collins 2021-06-15 2021-06-15 Outpatient MHIE MHIE [id number] Mariamoria 10:30:00 10:30:00 06 l Juancho 2021-05-17 2021-05-17 OFFICE STLMLC STLMLC [id number] Co mmon 00:00:00 00:00:00 VISIT Spirit ESTAB PT - CHI LEVEL 4 [facility] 2021-02-16 2021-02-16 OFFICE STLMLC STLMLC [id number] Co mmon 00:00:00 00:00:00 VISIT [facility] ESTAB PT - CHI LEVEL 4 [facility] 2020-12-15 2020-12-15 (TEL) STLMLC STLMLC [id number] Co mmon 00:00:00 00:00:00 [facility] 2020-11-24 2020-11-24 OFFICE STLMLC STLMLC [id number] Co mmon 00:00:00 00:00:00 VISIT Spirit ESTAB PT - CHI LEVEL 4 [facility] 2020-11-24 2020-11-24 SUB ANNUAL STLMLC STLMLC [id number] Common 00:00:00 00:00:00 MCR Spirit WELLNESS - CHI VISIT [facility] 2020-10-27 2020-10-27 Outpatient STLMLC STLMLC [id number] Common 00:00:00 00:00:00 [facility] 2020-09-23 2020-09-23 Outpatient STLMLC STLMLC [id number] Common 00:00:00 00:00:00 [facility] 2020-09-17 2020-09-17 Outpatient STLMLC STLMLC [id number] Common 00:00:00 00:00:00 [facility] 2020-08-25 2020-08-25 Outpatient STLMLC STLMLC [id number] Common 00:00:00 00:00:00 [facility] 2020-06-24 2020-06-26 Outside nullFlavo MNA [id number] Memoria 13:59:45 04:59:59 Medical r Neurology 00 l Records Brooks Dawkins 2020-06-24 2020-06-26 Outside nullFlavo MNA [id number] Memoria 13:59:45 04:59:59 Medical r Neurology 00 l Records Brooks Dawkins 2020-06-24 2020-06-25 Outpatient MHMISCHER MHMISCHER [id number] 08:59:45 23:59:59 00 2020-06-12 2020-06-13 Outpatient nullFlavo MNA [id number] Memoria 15:30:00 04:59:59 r Neurology 05 l Brooks Dawkins 2020-06-12 2020-06-13 Outpatient nullFlavo MNA [id number] Memoria 15:30:00 04:59:59 r Neurology 05 l Brooks Dawkins 2020-06-12 2020-06-12 Outpatient ANGELICA ParedesSCHER MISCHER [id number] 10:30:00 23:59:59 Sam Hailee Collins 2020-06-12 2020-06-12 Ambulatory nullFlavo MNA [id number] Memoria 15:30:00 15:30:00 Pre-Reg r Neurology 04 l Brooks Dawkins 2020-06-12 2020-06-12 Ambulatory nullFlavo MNA [id number] Memoria 15:30:00 15:30:00 Pre-Reg r Neurology 04 l Brooks Dawkins 2020-06-12 2020-06-12 Outpatient MHIE MHIE [id number] Memoria 10:30:00 10:30:00 05 david Dawkins 2020-06-12 2020-06-12 Outpatient MHIE MHIE [id number] Memoria 10:30:00 10:30:00 04 david Dawkins 2020-06-12 2020-06-12 Outpatient ANGELICA ParedesSCHSUMAYA MISCHER [id number] 10:30:00 10:30:00 Sam Donna Collins 2020-05-18 2020-05-18 Outpatient STLMLC STLMLC [id number] Common 00:00:00 00:00:00 [facility] 2020-04-07 2020-04-07 Outpatient STLMLC STLMLC [id number] Common 00:00:00 00:00:00 [facility] 2020-02-18 2020-02-18 Outpatient STLMLC STLMLC [id number] Common 00:00:00 00:00:00 [facility] 2020-02-06 2020-02-06 Outpatient STLMLC STLMLC [id number] Common 00:00:00 00:00:00 [facility] 2019-11-20 2019-11-20 Outpatient STLMLC STLMLC [id number] Common 00:00:00 00:00:00 [facility] 2019-11-20 2019-11-20 Outpatient STLMLC STLMLC [id number] Common 00:00:00 00:00:00 [facility] 2019-11-20 2019-11-20 Outpatient STLMLC STLMLC [id number] Common 00:00:00 00:00:00 [facility] 2019-08-19 2019-08-19 Out[facility] [id number] Common 16:15:00 16:15:[address] [facility] 2019-08-16 2019-08-16 Outpatient [facility] [id number] Common 09:45:00 09:45:[address] [facility] 2019-08-09 2019-08-09 Outpatient [facility] [id number] Common 15:20:00 15:20:[address] [facility] 2019-06-14 2019-06-15 Outpatient nullFlavo MNA [id number] Memoria 15:45:00 04:59:59 r Neurology 03 l [place] Cowan 2019-06-14 2019-06-15 Outpatient nullFlavo MNA [id number] Memoria 15:45:00 04:59:59 r Neurology 03 l Brooks Dawkins 2019-06-14 2019-06-14 Outpatient BROWN ParedesMISCHSUMAYA [id number] 10:45:00 23:59:59 Sam Collins 2019-06-14 2019-06-14 Outpatient MHIE MHIE [id number] Memoria 10:45:00 10:45:00 03 l Cowan 2019-05-23 2019-05-23 Ambulatory nullFlavo MNA [id number] Memoria 14:00:00 14:00:00 Pre-Reg r Neurology 02 l Brooks Cowan 2019-05-23 2019-05-23 Ambulatory nullFlavo MNA [id number] Memoria 14:00:00 14:00:00 Pre-Reg r Neurology 02 l Brooks Cowan 2019-05-23 2019-05-23 Outpatient MHIE MHIE [id number] Memoria 09:00:00 09:00:00 02 l Cowan 2019-05-23 2019-05-23 [facility] [id number] 09:00:00 09:00:00 Sam Corona Dennis 2019-05-22 2019-05-22 Outpatient [facility] [id number] Common 14:45:00 14:45:[address] [facility] 2019-05-13 2019-05-13 Outpatient [facility] [id number] Common 10:33:00 10:33:[address] [facility] 2019-05-02 2019-05-02 Outpatient [facility] [id number] Common 16:42:00 16:42:[address] [facility] [facility] 2019-04-29 2019-04-29 [id number] Common 08:36:00 08:36:[address] [facility] 2019-04-24 2019-04-24 [facility] [id number] Common 13:15:00 13:15:[address] [facility] 2019-04-23 2019-04-23 [facility] [id number] Common 15:22:00 15:22:[address] [facility] 2019-03-13 2019-03-13 [facility] [id number] Common 13:30:00 13:30:[address] Family - [facility] Family Medicine [facility] 2018-05-17 2018-05-17 Outpatient GISELE MHIE [id number] Memoria 09:00:00 09:00:00 01 david Dawkins 2018-05-17 2018-05-17 Outpatient GISELE CARVERIE [id number] [address] 09:00:00 09:00:00 01 l Juancho 2017-05-18 2017-05-18 Outpatient GISELE JAQUEZ [id number] [facility] 09:00:00 09:00:00 00 l Juancho 2017-05-18 2017-05-18 Outpatient GISELE CARVERIE [id number] [facility] 09:00:00 09:00:00 00 david Juancho Results Test Description Test Time Test Comments Results Result Sour e Comments RAD, SACROILIAC 2022-04-27 Reason for JOINTS, MIN 3 5 exam:->evaluate for VIEWS 08:10:00 arthritisShould this be performed at the [facility] - bedside?->Yes [facility] : 1945 Sex: M FINAL REPORT CLINICAL HISTORY: evaluate for arthritis TECHNIQUE: Three views of the bilateral sacroiliac joints. COMPARISON: None IMPRESSION: Please note that this exam was performed at a time when I was not on service. It was presented to me for dictation at a later time. The sacroiliac joints are not well imaged due to patient positioning and body habitus but are grossly symmetrical appearing. Signed: Robert Liao [facility] Verified Date/Time: 05/11/2022 08:10:47 -GLUCOSE METER 2022-04-20 17:18:17 Test Item Value Reference Range Interpretation Comme nts POC-GLUCOSE METER (BEAKER) 255 mg/dL 70-110 H : [facility] (test code = 1538) [facility] X, [address]: Sticker Operator/Techni edgar ID = [id number] for [place] POCT-GLUCOSE [id number] 12:51:48 Test Item Value Reference Range Interpretation Comments POC-GLUCOSE METER 163 mg/dL 70-110 H : TESTED A T [facility] 6720 (BEAKER) (test code [facility], = 1538) [address]: Sticker Operator/Techni edgar ID = [id number] for Maribeth Shultz POCT-GLUCOSE [id number] 08:30:42 Test Item Value Reference Range Interpretation Comments POC-GLUCOSE METER 143 mg/dL 70-110 H : [facility] (BEAKER) (test code [facility], = 1538) [address]: Sticker Operator/Techni edgar ID = [id number] for Maribeth Shultz [id number] 06:37:48 Test Item Value Reference Range Interpretation Comments MAGNESIUM (BEAKER) (test code = 1.9 mg/dL 1.6-2.6 627) Sticker Operator ID - GABRIELA [id number] 06:37:48 Test Item Value Reference Range Interpretation Comments POTASSIUM (BEAKER) (test code = 3.6 meq/L 3.5-5.1 379) Sticker Operator ID - GABRIELA GPOCT-GLUCOSE [id number] 21:32:39 Test Item Value Reference Range Interpretation Comments POC-GLUCOSE METER 182 mg/dL 70-110 H : [facility] (BEAKER[facility] ([facility], 1538) [address]: Sticker Operator/Techni edgar ID = [id number] for TABBY WAYNE POCT-GLUCOSE [id number] 18:06:11 Test Item Value Reference Range Interpretation Comments POC-GLUCOSE METER 177 mg/dL 70-110 H : TESTED A T [facility] 6720 (BEAKER) (test code [facility], = 1538) [address]: Sticker Operator/Techni edgar ID = [id number] for Maykel Kumar SARS-COV2/RT-PCR ([facility])2022-04-19 13:36:23 Test Item Value Reference Range Interpretation Comments SARS-COV2/RT-PCR Negative Negative The SARS-Co V-2 target (test code = nucleic acids a re not 1708600) detected in thi s specimen. Negative result s do not preclude SARS-C oV-2 infection and s hould not be used as the chi e basis for patient managem ent decisions. Nega tive results must be combine d with clinical observ ations, patient history , and epidemiological information. A false negativ e result may occur if a spec imen is improperly georgi ected, transported or handled. This SARS CoV-2 [...] revoked sooner. Fact Sheet for Healthcare Providers: https://www.GigDro[employer].Scytl m/Documents/Xpert%20Xpress%20SARS%20CoV-2/Fact%20Sheets/654-9271%09SUTL-EPP-4%20 HEALTHCARE%20PROVIDERS%20FACT%20SHEET.pdf Fact Sheet for Healthcare Patients: https://www.[employer]/Documents/Xpert%20Xp ress%20SARS%20CoV-2/Fact%20Sheets/302-0229%01QMWG-YYL-2%20PATIENT%20FACT%20SHEET .pdfPOCT-GLUCOSE [id number] 11:40:07 Test Item Value Reference Range Interpretation Comments POC-GLUCOSE METER 168 mg/dL 70-110 H : TESTED A T [facility] 6720 (BEAKER) (test code [facility], = 1538) [address]: Sticker Operator/Techni edgar ID = [id number] for Maykel Kumar POCT-GLUCOSE [id number] 07:51:08 Test Item Value Reference Range Interpretation Comments POC-GLUCOSE METER 145 mg/dL 70-110 H : TESTED A T [facility] 6720 (BEAKER) (test code [facility], = 1538) 15884: Sticker Operator/Techni edgar ID = [id number] for Maykel Kumar BLOOD [id number] 07:00:55 Test Item Value Reference Range Interpretation Comments CULTURE (BEAKER) (test No growth in 5 days code = 1095) The specimen volume collected for this blood culture was below the optimum (10 mL per bottle or 20 mL total). Use of lower volumes may adversely affect recovery and/or detection times of some organisms.BLOOD [id number] 07:00:54 Test Item Value Reference Range Interpretation Comments CULTURE (BEAKER) (test No growth in 5 days code = 1095) BASIC METABOLIC [id number] 05:38:09 Test Item Value Reference Range Interpretation Comments SODIUM (BEAKER) 139 meq/L 136-145 (test code = 381) POTASSIUM 3.0 meq/L 3.5-5.1 L (BEAKER) (test code = 379) CHLORIDE (BEAKER) 104 meq/L 98-107 (test code = 382) CO2 (BEAKER) 28 meq/L 22-29 (test code = 355) BLOOD UREA 28 mg/dL 7-21 H NITROGEN (BEAKER) (test code = 354) CREATININE 1.23 mg/dL 0.57-1.25 (BEAKER) (test code = 358) GLUCOSE RANDOM 138 mg/dL 70-105 H (BEAKER) (test code = 652) CALCIUM (BEAKER) 7.8 mg/dL 8.4-10.2 L (test code = 697) [...] not appl icable for dialysis patien ts Sticker Operator ID - [id number] 05:35:48 Test Item Value Reference Range Interpretation Comments MAGNESIUM (BEAKER) (test code = 1.5 mg/dL 1.6-2.6 L 627) Sticker Operator ID - BSPOCT-GLUCOSE [id number] 22:05:06 Test Item Value Reference Range Interpretation Comments POC-GLUCOSE METER 265 mg/dL 70-110 H : TESTED A T [facility] 6720 (BEAKER) (test code = [facility], 1538) 564[address]: Sticker Operator/Techni edgar ID = [id number] for Br isfoxlQuea POCT-GLUCOSE [id number] 17:29:36 Test Item Value Reference Range Interpretation Comments POC-GLUCOSE METER 212 mg/dL 70-110 H : TESTED A T [facility] 6720 (BEAKER) (test code [facility], = 1538) [address]: Sticker Operator/Techni edgar ID = [id number] for Rl rs, Maribeth POCT-GLUCOSE [id number] 12:21:53 Test Item Value Reference Range Interpretation Comments POC-GLUCOSE METER 221 mg/dL 70-110 H : TESTED A T [facility] 6720 (BEAKER) (test code [facility], = 1538) [address]90[address]: Sticker Operator/Techni edgar ID = [id number] for Rl rs, Maribeth POCT-GLUCOSE [id number] 08:13:29 Test Item Value Reference Range Interpretation Comments POC-GLUCOSE METER 162 mg/dL 70-110 H : TESTED A T [facility] 6720 (BEAKER) (test code [facility], = 1538) 87322: Sticker Operator/Techni edgar ID = [id number] for Rl rs, Maribeth POCT-GLUCOSE [id number] 21:50:20 Test Item Value Reference Range Interpretation Comments POC-GLUCOSE METER 225 mg/dL 70-110 H : TESTED A T [facility] 6720 (BEAKER) (test code = [facility], 1538) [address]: Sticker Operator/Techni edgar ID = [id number] for PH MARIEL SANTA POCT-GLUCOSE [id number] 17:42:44 Test Item Value Reference Range Interpretation Comments POC-GLUCOSE METER 260 mg/dL 70-110 H : TESTED A T [facility] 6720 (BEAKER) (test code = [facility], 1538) [address]89: Sticker Operator/Techni edgar ID = [id number] for Co rtez, Blackgum POCT-GLUCOSE [id number] 11:50:03 Test Item Value Reference Range Interpretation Comments POC-GLUCOSE METER 214 mg/dL 70-110 H : TESTED A T [facility] 6720 (BEAKER) (test code = [facility], 1538) [address]: Sticker Operator/Techni edgar ID = [id number] for Co rtez, Leena POCT-GLUCOSE [id number] 07:46:19 Test Item Value Reference Range Interpretation Comments POC-GLUCOSE METER 126 mg/dL 70-110 H : TESTED A T [facility] 6720 (BEAKER) (test code = [facility], 1538) 96331: Sticker Operator/Techni edgar ID = [id number] for Co rtez, Leena POCT-GLUCOSE [id number] 20:54:31 Test Item Value Reference Range Interpretation Comments POC-GLUCOSE METER 198 mg/dL 70-110 H : TESTED A T [facility] 6720 (BEAKER) (test code = [facility], 1538) [address]: Sticker Operator/Techni edgar ID = [id number] for Br istol, Nykia POCT-GLUCOSE [id number] 17:33:57 Test Item Value Reference Range Interpretation Comments POC-GLUCOSE METER 253 mg/dL 70-110 H : TESTED A T [facility] 6720 (BEAKER) (test code = [facility], 1538) 78661: Sticker Operator/Techni edgar ID = [id number] for Co rtez, Blackgum POCT-GLUCOSE [id number] 11:37:38 Test Item Value Reference Range Interpretation Comments POC-GLUCOSE METER 188 mg/dL 70-110 H : TESTED A T [facility] 6720 (BEAKER) (test code = [place], 1538) [address]: Sticker Operator/Techni edgar ID = [id number] for Co Leena amador SARS-COV2/RT-PCR ([facility])2022-04-16 10:44:18 Test Item Value Reference Range Interpretation Comments SARS-COV2/RT-PCR Negative Negative The SARS-Co V-2 target (test code = nucleic acids a re not [id number]) detected in thi s specimen. Negative result s do not preclude SARS-C oV-2 infection and s hould not be used as the chi e basis for patient managem ent decisions. Nega tive results must be combine d with clinical observ ations, patient history , and epidemiological information. A false negativ e result may occur if a spec imen is improperly georgi ected, transported or handled. This SARS CoV-2 [...] revoked sooner. Fact Sheet for Healthcare Providers: https://www.GigDro[employer].co m/Documents/Xpert%20Xpress%20SARS%20CoV-2/Fact%20Sheets/361-5422%45VXKX-TJI-1%20 HEALTHCARE%20PROVIDERS%20FACT%20SHEET.pdf Fact Sheet for Healthcare Patients: https://www.GigDropper.com/Documents/Xpert%20Xp ress%20SARS%20CoV-2/Fact%20Sheets/818-3801%96JUAP-BUY-6%20PATIENT%20FACT%20SHEET .pdfRAD, FOOT, MIN 3 VIEWS, [id number] 09:37:00Reason for exam:- >evaluate for arthritisShould this be performed at the bedside?->Yes [facility] 1945 Sex: MFINAL REPORT RAD, FOOT, MIN 3 VIEWS, RIGHT CLINICAL INDICATION: evaluate for arthritis COMPARISON: Contralateral foot radiograph from the same day. FINDINGS: Frontal, oblique and lateral views of the right foot. No acute fracture or dislocation is identified. There is a punched out appearance of the distal metatarsal of the first ray. This is accompanied with mild soft tissue swellingof the first metatarsophalangeal joint. These findings can be seen in gout. Please correlate with clinical history. 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 Plantar calcaneal enthesophyte noted. Vascular calcifications. Signed: Raza West [facility] Verified Date/Time: 04/16/2022 09:37:18 RAD, FOOT, MIN 3 VIEWS, [id number] 09:33:00Reason for exam:- >evaluate for arthritisShould this be performed at the bedside?->Yes [facility] : 1945 Sex: MFINAL REPORT RAD, FOOT, MIN 3 VIEWS, LEFT CLINICAL INDICATION: evaluate for arthritis COMPARISON: None FINDINGS: Frontal, oblique and lateral views of the left foot. No acute fracture or dislocation is identified. There is sclerosis with erosions noted at the first metatarsophalangeal joint. These findings can be seen in gout. Please correlate with history. Mild arthritis/degenerativechanges noted in the midfoot. Plantar calcaneal enthesophyte noted. No significant soft tissue swelling. Vascular calcifications are present. Signed: Raza West [facility] Verified Date/Time: 04/16/2022 09:33:00 POCT- GLUCOSE [id number] 07:46:49 Test Item Value Reference Range Interpretation Comments POC-GLUCOSE METER 156 mg/dL 70-110 H : TESTED A T [facility] 6720 (BEAKER) (test code = [facility], 1538) [address]: Sticker Operator/Techni edgar ID = [id number] for Leena Dominguez BASIC METABOLIC [id number] 05:15:24 Test Item Value Reference Range Interpretation Comments SODIUM (BEAKER) 141 meq/L 136-145 (test code = 381) POTASSIUM 3.6 meq/L 3.5-5.1 (BEAKER) (test code = 379) CHLORIDE (BEAKER) 101 meq/L 98-107 (test code = 382) CO2 (BEAKER) 29 meq/L 22-29 (test code = 355) BLOOD UREA 38 mg/dL 7-21 H NITROGEN (BEAKER) (test code = 354) CREATININE 1.38 mg/dL 0.57-1.25 H (BEAKER) (test code = 358) GLUCOSE RANDOM 154 mg/dL 70-105 H (BEAKER) (test code = 652) CALCIUM (BEAKER) 9.2 mg/dL 8.4-10.2 (test code = 697) EGFR (BEAKER) 54 Interpretatio n of eGFR (test code = [...] is not as accur ate as Creatinine Montserart demetrius in predicting glom erular filtration rate . Estimated GFR is not appl icable for dialysis patien ts Sticker Operator ID - [id number] 05:15:24 Test Item Value Reference Range Interpretation Comments MAGNESIUM (BEAKER) (test code = 1.8 mg/dL 1.6-2.6 627) Sticker Operator ID - MARCOPOCT-GLUCOSE [id number] 21:28:10 Test Item Value Reference Range Interpretation Comments POC-GLUCOSE METER 227 mg/dL 70-110 H : TESTED A T [facility] 6720 (BEAKER) (test code = [facility], 153) 35[address]: Sticker Operator/Techni edgar ID = [id number] for An asad (contract)Natalie POCT-GLUCOSE [id number] 17:38:58 Test Item Value Reference Range Interpretation Comments POC-GLUCOSE METER 252 mg/dL 70-110 H : TESTED A T [facility] 6720 (BEAKER) (test code = [facility], 1538) 46001: Sticker Operator/Techni edgar ID = [id number] for OR PHEY, MARYLOU POCT-GLUCOSE [id number] 12:16:11 Test Item Value Reference Range Interpretation Comments POC-GLUCOSE METER 191 mg/dL 70-110 H : TESTED A T [facility] 6720 (BEAKER) (test code = [facility], 1538) 67960: Sticker Operator/Techni edgar ID = [id number] for OR PHEY, MARYLOU POCT-GLUCOSE [id number] 08:50:39 Test Item Value Reference Range Interpretation Comments POC-GLUCOSE METER 158 mg/dL 70-110 H : TESTED A T [facility] 6720 (BEAKER) (test code = [facility], 1538) 76063: Sticker Operator/Techni edgar ID = [id number] for Jeannette Foster BLOOD [id number] 08:28:11 Test Item Value Reference Range Interpretation Comments CULTURE A From Anaerobic Bottle (BEAKER) (test Only Same org anism has code = 1095) been isolated f rom cultures(s) of the same body site within 3 days. Repeat identification and susceptibility testing performed only after consultation wi the clinical microb iology laboratory.Refe r to previous cultur e ofEnterococcus faecalis GRAM STAIN From anaerobic RESULT (BEAKER) bottle only: gram (test code = positive cocci 1123) BLOOD [id number] 07:00:53 Test Item Value Reference Range Interpretation Comments CULTURE (BEAKER) (test No growth in 5 days code = 1095) POCT-GLUCOSE [id number] 22:38:19 Test Item Value Reference Range Interpretation Comments POC-GLUCOSE METER 147 mg/dL 70-110 H : TESTED A T [facility] 6720 (BEAKER) (test code = [facility], 1538) 92807: Sticker Operator/Techni edgar ID = [id number] for BABAR NOVOA POCT-GLUCOSE [id number] 17:33:41 Test Item Value Reference Range Interpretation Comments POC-GLUCOSE METER 158 mg/dL 70-110 H : TESTED A T [facility] 6720 (BEAKER) (test code = [facility], 1538) 76205: Sticker Operator/Techni edgar ID = [id number] for Wi lliams (contract), Peña helle POCT-GLUCOSE [id number] 12:01:05 Test Item Value Reference Range Interpretation Comments POC-GLUCOSE METER 219 mg/dL 70-110 H : TESTED A T [facility] 6720 (BEAKER) (test code = [facility], 1538) 63356: Sticker Operator/Techni edgar ID = [id number] for Wi lliams (contract), Peña helle RAD, HAND, 3 VIEWS, [id number] 08:42:00Reason for exam:->evaluate for arthritic changesShould this be performed at the bedside?->Yes [facility] : 1945 Sex: MFINAL REPORT CLINICAL HISTORY: evaluate for arthritic changes TECHNIQUE: 3 views ofthe bilateral hands. COMPARISON: None FINDINGS: Left: No acute fracture or malalignment. 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 Mild osteoarthrosis thumb carpometacarpal joint.Moderate osteoarthrosis of the first MCP joint.Punctate metallic densities are seen in the proximal ring finger soft tissues. No significant soft tissues swelling. Right: No acute fracture or malalignment. Widening of the scapholunate interval measures 0.5 cm.Mild osteoarthrosis thumb carpometacarpal joint.Punctate radiopaque density in the dorsal middle finger soft tissues. No significant soft tissues swelling. 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 Right: 1.No acute fracture or malalignment.2.Widening of the scapholunate interval, suggesting ligamentous injury. Signed: Preeti Burns [facility] Verified Date/Time: 04/14/2022 08:42:08 Reading Location: [address] Reading Room , HAND, 3 VIEWS, [id number] 08:42:00Reason for exam:->evaluate for arthritic changesShould this be performed at the bedside?->Yes [facility] : 1945 Sex: MFINAL REPORT CLINICAL HISTORY: evaluate for arthritic changes TECHNIQUE: 3 views of the bilateral hands. COMPARISON: None FINDINGS: Left: No acute fracture or malalignment. 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 Mild osteoarthrosis thumb carpometacarpal joint.Moderate osteoarthrosis of the first MCP joint.Punctate metallic densities are seen in the proximal ring finger soft tissues. No significant soft tissues swelling. Right: No acute fracture or malalignment. Widening of the scapholunate interval measures 0.5 cm.Mild osteoarthrosis thumb carpometacarpal joint.Punctate radiopaque density in the dorsal middle finger soft tissues.No significant soft tissues swelling. 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 Right: 1.No acute fracture or malalignment.2.Widening of the scapholunate interval, suggesting ligamentous injury. Signed: [facility]reeti [facility] Verified Date/Time: 04/14/2022 08:42:08 Reading Location: [address] Reading Room -GLUCOSE [id number] 08:28:25 Test Item Value Reference Range Interpretation Comments POC-GLUCOSE METER 151 mg/dL 70-110 H : TESTED A T [facility] 6720 (BEAKER) (test code = [place], 1538) [address]: Sticker Operator/Techni edgar ID = [id number] for [facility] (contract), [facility] BASIC METABOLIC [id number] 07:09:05 Test Item Value Reference Range Interpretation Comments SODIUM (BEAKER) 140 meq/L 136-145 (test code = 381) POTASSIUM 3.9 meq/L 3.5-5.1 (BEAKER) (test code = 379) CHLORIDE (BEAKER) 101 meq/L 98-107 (test code = 382) CO2 (BEAKER) 29 meq/L 22-29 (test code = 355) BLOOD UREA 36 mg/dL 7-21 H NITROGEN (BEAKER) (test code = 354) CREATININE 1.38 mg/dL 0.57-1.25 H (BEAKER) (test code = 358) GLUCOSE RANDOM 150 mg/dL 70-105 H (BEAKER) (test code = 652) CALCIUM (BEAKER) 9.2 mg/dL 8.4-10.2 (test code = 697) EGFR (BEAKER) 54 Interpretatio n of eGFR (test code = mL/min/1.73 values Stage De scription 1092) sq m Result G1 Jayne l or high >=90 G2 Mildly decreased 60-89 G3a Mild ly to moderately 45-5 9 G3b Moderately to [...] not appl icable for dialysis patien ts Sticker Operator ID - [id number] 07:09:05 Test Item Value Reference Range Interpretation Comments MAGNESIUM (BEAKER) (test code = 1.7 mg/dL 1.6-2.6 627) Sticker Operator ID - ADMINCBC W/PLT COUNT & AUTO [id number] 06:17:33 Test Item Value Reference Range Interpretation Comments WHITE BLOOD CELL COUNT (BEAKER) 5.7 K/ L 3.5-10.5 (test code = 775) RED BLOOD CELL COUNT (BEAKER) 3.04 M/ L 4.63-6.08 L (test code = 761) HEMOGLOBIN (BEAKER) (test code = 8.2 GM/DL 13.7-17.5 L 410) HEMATOCRIT (BEAKER) (test code = 26.0 % 40.1-51.0 L 411) MEAN CORPUSCULAR VOLUME (BEAKER) 86 fL 79-92 (test code = 753) MEAN CORPUSCULAR HEMOGLOBIN 27.0 pg 25.7-32.2 (BEAKER) (test code = 751) MEAN CORPUSCULAR HEMOGLOBIN CONC 31.5 GM/DL 32.3-36.5 L (BEAKER) (test code = 752) RED CELL DISTRIBUTION WIDTH 15.0 % 11.6-14.4 H (BEAKER) (test code = 412) PLATELET COUNT (BEAKER) (test 159 K/CU MM 150-450 code = 756) MEAN PLATELET VOLUME (BEAKER) 10.2 fL 9.4-12.4 (test code = 754) NUCLEATED RED BLOOD CELLS 0 /100 WBC 0-0 (BEAKER) (test code = 413) NEUTROPHILS RELATIVE PERCENT 80 % (BEAKER) (test code = 429) LYMPHOCYTES RELATIVE PERCENT 13 % (BEAKER) (test code = 430) MONOCYTES RELATIVE PERCENT 4 % (BEAKER) (test code = 431) EOSINOPHILS RELATIVE PERCENT 2 % (BEAKER) (test code = 432) BASOPHILS RELATIVE PERCENT 0 % (BEAKER) (test code = 437) NEUTROPHILS ABSOLUTE COUNT 4.55 K/ L 1.78-5.38 (BEAKER) (test code = 670) LYMPHOCYTES ABSOLUTE COUNT 0.73 K/ L 1.32-3.57 L (BEAKER) (test code = 414) MONOCYTES ABSOLUTE COUNT (BEAKER) 0.25 K/ L 0.30-0.82 L (test code = 415) EOSINOPHILS ABSOLUTE COUNT 0.13 K/ L 0.04-0.54 (BEAKER) (test code = 416) BASOPHILS ABSOLUTE COUNT (BEAKER) 0.01 K/ L 0.01-0.08 (test code = 417) IMMATURE GRANULOCYTES-RELATIVE 0.40 % 0.00-1.00 PERCENT (BEAKER) (test code = 2801) POCT-GLUCOSE [id number] 20:57:22 Test Item Value Reference Range Interpretation Comments POC-GLUCOSE METER 124 mg/dL 70-110 H : TESTED Vanesa T [facility] 6720 (BEAKER) (test code = [place], 1538) 75351: Sticker Operator/Techni edgar ID = [id number] for Beatrice Verdin se POCT-GLUCOSE [id number] 16:13:05 Test Item Value Reference Range Interpretation Comments POC-GLUCOSE METER 215 mg/dL 70-110 H : TESTED A T [facility] 6720 (BEAKER) (test code = [facility], 1538) 23771: Sticker Operator/Techni edgar ID = [id number] for Boaz Flores RHEUMATOID FACTOR [id number] 13:12:36 Test Item Value Reference Range Interpretation Comments RHEUMATOID FACTOR TITER (BEAKER) (test :32 Negative code = 2285) RHEUMATOID FACTOR AB, REFLEX TO [id number] 13:12:30 Test Item Value Reference Range Interpretation Comments RHEUMATOID FACTOR (BEAKER) (test Positive Negative code = 573) ANTI-NUCLEAR ANTIBODY (ARACELIS)2022-04-13 12:48:12 Test Item Value Reference Range Interpretation Comments ANTI-NUCLEAR ANTIBODY (ARACELIS) (BEAKER) Negative Negative (test code = 418) Test performed by IFA method.Test performed by IFA method.POCT-GLUCOSE METER 2022-04-13 12:09:29 Test Item Value Reference Range Interpretation Comments POC-GLUCOSE METER 213 mg/dL 70-110 H : TESTED A T [facility] 6720 (BEAKER) (test code = [facility], 1538) 11952: Sticker Operator/Techni edgar ID = [id number] for Boaz Flores POCT-GLUCOSE [id number] 08:33:40 Test Item Value Reference Range Interpretation Comments POC-GLUCOSE METER 180 mg/dL 70-110 H : TESTED A T [facility] 6720 (BEAKER) (test code = [facility], 1538) 39031: Sticker Operator/Techni edgar ID = [id number] for Boaz Flores C-REACTIVE [id number] 05:37:23 Test Item Value Reference Range Interpretation Comments C-REACTIVE PROTEIN (BEAKER) (test 20.34 mg/dL 0.00-0.50 H code = 676) Sticker Operator ID - GABRIELA GBASIC METABOLIC [id number] 05:37:22 Test Item Value Reference Range Interpretation Comments SODIUM (BEAKER) 138 meq/L 136-145 (test code = 381) POTASSIUM 3.7 meq/L 3.5-5.1 (BEAKER) (test code = 379) CHLORIDE (BEAKER) 101 meq/L 98-107 (test code = 382) CO2 (BEAKER) 28 meq/L 22-29 (test code = 355) BLOOD UREA 39 mg/dL 7-21 H NITROGEN (BEAKER) (test code = 354) CREATININE 1.54 mg/dL 0.57-1.25 H (BEAKER) (test code = 358) GLUCOSE RANDOM 172 mg/dL 70-105 H (BEAKER) (test code = 652) CALCIUM (BEAKER) 9.1 mg/dL 8.4-10.2 (test code = 697) EGFR [...] not appl icable for dialysis patien ts Sticker Operator ID - GABRIELA GCBC W/PLT COUNT & AUTO [id number] 05:12:04 Test Item Value Reference Range Interpretation Comments WHITE BLOOD CELL COUNT (BEAKER) 6.0 K/ L 3.5-10.5 (test code = 775) RED BLOOD CELL COUNT (BEAKER) 2.96 M/ L 4.63-6.08 L (test code = 761) HEMOGLOBIN (BEAKER) (test code = 8.0 GM/DL 13.7-17.5 L 410) HEMATOCRIT (BEAKER) (test code = 25.5 % 40.1-51.0 L 411) MEAN CORPUSCULAR VOLUME (BEAKER) 86 fL 79-92 (test code = 753) MEAN CORPUSCULAR HEMOGLOBIN 27.0 pg 25.7-32.2 (BEAKER) (test code = 751) MEAN CORPUSCULAR HEMOGLOBIN CONC 31.4 GM/DL 32.3-36.5 L (BEAKER) (test code = 752) RED CELL DISTRIBUTION WIDTH 15.0 % 11.6-14.4 H (BEAKER) (test code = 412) PLATELET COUNT (BEAKER) (test 139 K/CU MM 150-450 L code = 756) MEAN PLATELET VOLUME (BEAKER) 10.2 fL 9.4-12.4 (test code = 754) NUCLEATED RED BLOOD CELLS 0 /100 WBC 0-0 (BEAKER) (test code = 413) NEUTROPHILS RELATIVE PERCENT 80 % (BEAKER) (test code = 429) LYMPHOCYTES RELATIVE PERCENT 11 % (BEAKER) (test code = 430) MONOCYTES RELATIVE PERCENT 5 % (BEAKER) (test code = 431) EOSINOPHILS RELATIVE PERCENT 4 % (BEAKER) (test code = 432) BASOPHILS RELATIVE PERCENT 0 % (BEAKER) (test code = 437) NEUTROPHILS ABSOLUTE COUNT 4.83 K/ L 1.78-5.38 (BEAKER) (test code = 670) LYMPHOCYTES ABSOLUTE COUNT 0.66 K/ L 1.32-3.57 L (BEAKER) (test code = 414) MONOCYTES ABSOLUTE COUNT (BEAKER) 0.27 K/ L 0.30-0.82 L (test code = 415) EOSINOPHILS ABSOLUTE COUNT 0.22 K/ L 0.04-0.54 (BEAKER) (test code = 416) BASOPHILS ABSOLUTE COUNT (BEAKER) 0.01 K/ L 0.01-0.08 (test code = 417) IMMATURE GRANULOCYTES-RELATIVE 0.50 % 0.00-1.00 PERCENT (BEAKER) (test code = 2801) POCT-GLUCOSE [id number] 21:21:10 Test Item Value Reference Range Interpretation Comments POC-GLUCOSE METER 245 mg/dL 70-110 H : TESTED A T [facility] 6720 (BEAKER) (test code = [place], 1538) [id number]: Sticker Operator/Techni edgar ID = [id number] for Velvet se Beatrice SARS-COV2/RT-PCR ([facility])2022-04-12 19:08:12 Test Item Value Reference Range Interpretation Comments SARS-COV2/RT-PCR Negative Negative The SARS-Co V-2 target (test code = nucleic acids a re not [id number]) detected in thi s specimen. Negative result s do not preclude SARS-C oV-2 infection and s hould not be used as the chi e basis for patient managem ent decisions. Nega tive results must be combine d with clinical observ ations, patient history , and epidemiological information. A false negativ e result may occur if a spec imen is improperly georgi ected, transported or handled. This SARS CoV-2 [...] revoked sooner. Fact Sheet for Healthcare Providers: https://www.[employer]/Documents/Xpert%20Xpress%20SARS%20CoV-2/Fact%20Sheets/3023802%08EXFA-AJL-9%20 HEALTHCARE%20PROVIDERS%20FACT%20SHEET.pdf Fact Sheet for Healthcare Patients: https://www.[employer]/Documents/Xpert%20Xp ress%20SARS%20CoV-2/Fact%20Sheets/3023801%20KXKQ-UCP-1%20PATIENT%20FACT%20SHEET .pdfURIC [id number] 14:37:03 Test Item Value Reference Range Interpretation Comments URIC ACID (BEAKER) (test code = 7.4 mg/dL 2.6-7.2 H 773) Sticker Operator ID - MARII, CHEST, 1 VIEW, NON [id number] 13:43:00Reason for exam:->PICC tip location verification. Thanks.Should this be performed at the bedside?->YesCH[facility] : 1945 Sex: MFINAL REPORT INDICATION: PICC tip location verification. Thanks. COMPARISON: 02/23/2022 TECHNIQUE: Single frontal view of the chest. FINDINGS: Lines, tubes, and devices: Right PICC tip overlies the superior vena cava. Lungs and pleura: Clear lungs. No pneumothorax.Heart and mediastinum: Normal heart size. Unremarkable mediastinal contours.Osseous structures: No acute abnormality. Mildspondylosis and facet arthropathy are present within the spine. Other: None. IMPRESSION: Right PICC tip overlies the superior vena cava. Signed: Preeti Burns [facility] Verified Date/Time: 04/12/2022 13:43:43 Reading Location: [address] Neuro Reading Room POCT-GLUCOSE [id number] 13:00:58 Test Item Value Reference Range Interpretation Comments POC-GLUCOSE METER 225 mg/dL 70-110 H : TESTED A T [facility] 6720 (BEAKER) (test code = [place] White [facility], 1538) 220[address]: Sticker Operator/Techni edgar ID = [id number] for OR PHEY, MARYLOU POCT-GLUCOSE [id number] 08:37:19 Test Item Value Reference Range Interpretation Comments POC-GLUCOSE METER 169 mg/dL 70-110 H : TESTED A T [facility] 6720 (BEAKER) (test code = MARCEEUN Cindy [facility], 1538) 84171: Sticker Operator/Techni edgar ID = [id number] for OR PHEY, MARYLOU BLOOD [id number] 08:27:56 Test Item Value Reference Range Interpretation Comments CULTURE (BEAKER) ENTEROCOCCUS A From Aerobi c And (test code = 1095) FAECALIS Anaerobic Bottles Enterococcus faecalis Penicillin G (test See_Comment S [Automat ed code = 3) message] The system which generated this result transmit deepali reference range : Susceptible 0-8 , Resistant <0 or >8 . The reference range was not u sed to interpret th is result as normal/abnormal . Ampicillin (test S code = 26) Gentamicin High S Level Synergy (test code = 241) Linezolid (test S code = 40) Streptomycin High S Level Synergy (test code = 242) Vancomycin (test S code = 13) GRAM STAIN RESULT From aerobic and (BEAKER) (test code anaerobic bottles: = 1123) gram positive coccobacilli BASIC METABOLIC [id number] 06:59:57 Test Item Value Reference Range Interpretation Comments SODIUM (BEAKER) 139 meq/L 136-145 (test code = 381) POTASSIUM 4.0 meq/L 3.5-5.1 (BEAKER) (test code = 379) CHLORIDE (BEAKER) 101 meq/L 98-107 (test code = 382) CO2 (BEAKER) 28 meq/L 22-29 (test code = 355) BLOOD UREA 35 mg/dL 7-21 H NITROGEN (BEAKER) (test code = 354) CREATININE 1.47 mg/dL 0.57-1.25 H (BEAKER) (test code = 358) GLUCOSE RANDOM 181 mg/dL 70-105 H (BEAKER) (test code = 652) CALCIUM (BEAKER) 9.2 mg/dL 8.4-10.2 (test code = 697) EGFR (BEAKER) 50 Interpretatio n of eGFR (test code = [...] not appl icable for dialysis patien ts Sticker Operator ID - [id number] 06:59:57 Test Item Value Reference Range Interpretation Comments MAGNESIUM (BEAKER) (test code = 1.7 mg/dL 1.6-2.6 627) Sticker Operator ID - MARCOCBC W/PLT COUNT & AUTO [id number] 06:48:32 Test Item Value Reference Range Interpretation Comments WHITE BLOOD CELL COUNT (BEAKER) 5.3 K/ L 3.5-10.5 (test code = 775) RED BLOOD CELL COUNT (BEAKER) 2.98 M/ L 4.63-6.08 L (test code = 761) HEMOGLOBIN (BEAKER) (test code = 8.2 GM/DL 13.7-17.5 L 410) HEMATOCRIT (BEAKER) (test code = 25.5 % 40.1-51.0 L 411) MEAN CORPUSCULAR VOLUME (BEAKER) 86 fL 79-92 (test code = 753) MEAN CORPUSCULAR HEMOGLOBIN 27.5 pg 25.7-32.2 (BEAKER) (test code = 751) MEAN CORPUSCULAR HEMOGLOBIN CONC 32.2 GM/DL 32.3-36.5 L (BEAKER) (test code = 752) RED CELL DISTRIBUTION WIDTH 15.1 % 11.6-14.4 H (BEAKER) (test code = 412) PLATELET COUNT (BEAKER) (test 126 K/CU MM 150-450 L code = 756) MEAN PLATELET VOLUME (BEAKER) 10.3 fL 9.4-12.4 (test code = 754) NUCLEATED RED BLOOD CELLS 0 /100 WBC 0-0 (BEAKER) (test code = 413) NEUTROPHILS RELATIVE PERCENT 80 % (BEAKER) (test code = 429) LYMPHOCYTES RELATIVE PERCENT 12 % (BEAKER) (test code = 430) MONOCYTES RELATIVE PERCENT 5 % (BEAKER) (test code = 431) EOSINOPHILS RELATIVE PERCENT 3 % (BEAKER) (test code = 432) BASOPHILS RELATIVE PERCENT 0 % (BEAKER) (test code = 437) NEUTROPHILS ABSOLUTE COUNT 4.21 K/ L 1.78-5.38 (BEAKER) (test code = 670) LYMPHOCYTES ABSOLUTE COUNT 0.62 K/ L 1.32-3.57 L (BEAKER) (test code = 414) MONOCYTES ABSOLUTE COUNT (BEAKER) 0.25 K/ L 0.30-0.82 L (test code = 415) EOSINOPHILS ABSOLUTE COUNT 0.16 K/ L 0.04-0.54 (BEAKER) (test code = 416) BASOPHILS ABSOLUTE COUNT (BEAKER) 0.02 K/ L 0.01-0.08 (test code = 417) IMMATURE GRANULOCYTES-RELATIVE 0.60 % 0.00-1.00 PERCENT (BEAKER) (test code = 2801) POCT-GLUCOSE [id number] 22:04:13 Test Item Value Reference Range Interpretation Comments POC-GLUCOSE METER 205 mg/dL 70-110 H : TESTED A T [facility] 6720 (BEAKER) (test code = [facility], 1538) 84656: Sticker Operator/Techni edgar ID = [id number] for Beatrice Verdin se POCT-GLUCOSE [id number] 17:42:55 Test Item Value Reference Range Interpretation Comments POC-GLUCOSE METER 178 mg/dL 70-110 H : TESTED A T [facility] 6720 (JOSE ARMANDOAKER) (test code = [facility], 1538) 76282: Sticker Operator/Techni edgar ID = [id number] for Luis LING POCT-GLUCOSE [id number] 11:43:28 Test Item Value Reference Range Interpretation Comments POC-GLUCOSE METER 159 mg/dL 70-110 H : TESTED A T [facility] 6720 (BEAKER) (test code = [facility], 1538) 39269: Sticker Operator/Techni edgar ID = [id number] for Luis LING CT, CHEST, WITHOUT [id number] 10:20:00Unlisted Reason for Exam - Click Yes and Enter Reason Below->YesUnlisted Reason for Exam->Enterococcus bacteremia, severe pain left sternoclavicular joint, evaluate for effusion and septic arthritisKINDRED [facility]ITALName: [facility] : 1945 Sex: MFINAL REPORT TECHNIQUE: CT scan of the chest WITHOUT intravenous contrast. Dose modulation, iterative reconstruction, and/or weight-based adjustment of the mA/kV was utilized to reduce the radiation dose to as low as reasonably achievable. INDICATION: Unlisted Reason for ExamEnterococcus bacteremia, severe pain left sternoclavicular joint, evaluate for effusion and septic arthritis. COMPARISON: CT chest 02/18/2022. FINDINGS: ABSENCE OF INTRAVENOUS CONTRAST DECREASES SENSITIVITY FOR DETECTION OF FOCAL LESIONS AND VASCULAR PATHOLOGY. LINES/TUBES: None. HEART AND MEDIASTINUM: The visualized thyroid gland is normal. No significant mediastinal, hilar, or axillary lymphadenopathy. Heart is within normal limits in size. No pericardial effusion. Few scattered coronary atherosclerotic calcifications are noted. Prior endovascular aortic valve replacement. LUNGS AND AIRWAYS: Mild lower lobe bronchiectasis. Dependent/compressive atelectatic changes within the left lower lobe related to fusion. Central airways are patent. PLEURA: Tiny left pleural effusion. SOFT TISSUES AND BONES: Sternoclavicular joints appear symmetric without osseous destructive process or definite effusion. UPPER ABDOMEN: 1.8 x 1.0 cm left adrenal nodule with attenuation of less than 10 Hounsfield units compatible with an adenoma. No follow-up imaging is recommended. IMPRESSION: 1. New tiny left pleural effusion withassociated compressive atelectatic changes. Mild lower lobe bronchiectasis, new since the prior examination. No acute pulmonary parenchymal process.2. Symmetric appearance of the sternoclavicular joints without osseous destructive change or definite effusion. Signed: Diamond Pepper [facility] Verified Date/Time: 04/11/2022 10:20:05 [facility] [id number] 08:51:24 Test Item Value Reference Range Interpretation Comments CULTURE A From Aerobic An d (BEAKER) (test Anaerobic Bot tles code = 1095) Same organism h as been isolated f rom cultures(s) of the same body site and collection date . Repeat identifi cation and susceptibil ity testing perform ed only after consultation wi the clinical microb iology laboratory.Refe r to previous cultur e ofEnterococcus faecalis GRAM STAIN From aerobic and RESULT anaerobic bottles: (BEAKER) (test gram positive code = 1123) coccobacilli U/S, EXTREMITY (NON-VASCULAR), RIGHT, [id number] 08:20:00Reason for exam:->palpable nodule [facility] : 1945 Sex: MFINAL REPORT TECHNIQUE: Grayscale ultrasound of the right wrist. INDICATION: palpable nodule. COMPARISON: None. FINDINGS/IMPRESSION:There is anechoic fluid in the ventral wrist which surrounds the tendon sheath. There is some complex material within this fluid. This is concerning for tenosynovitis. Underlying infection cannot be excluded on the basis examination. Signed: Liz Curran Verified Date/Time: 04/11/2022 08:20:15 BASIC METABOLIC [id number] 05:30:53 Test Item Value Reference Range Interpretation Comments SODIUM (BEAKER) 137 meq/L 136-145 (test code = 381) POTASSIUM 4.0 meq/L 3.5-5.1 (BEAKER) (test code = 379) CHLORIDE (BEAKER) 101 meq/L 98-107 (test code = 382) CO2 (BEAKER) 27 meq/L 22-29 (test code = 355) BLOOD UREA 35 mg/dL 7-21 H NITROGEN (BEAKER) (test code = 354) CREATININE 1.51 mg/dL 0.57-1.25 H (BEAKER) (test code = 358) GLUCOSE RANDOM 122 mg/dL 70-105 H (BEAKER) (test code = 652) CALCIUM (BEAKER) 9.1 mg/dL 8.4-10.2 (test code = 697) EGFR (BEAKER) 48 Interpretatio n of eGFR (test code = mL/min/1.73 values Stage De scription 1092) sq m Result G1 Jayne l or high >=90 G2 Mildly decreased 60-89 G3a Mild ly to moderately 45-5 9 G3b Moderately to [...] not appl icable for dialysis patien ts Sticker Operator ID - FAWADDONAVON [id number] 05:30:53 Test Item Value Reference Range Interpretation Comments MAGNESIUM (BEAKER) (test code = 1.6 mg/dL 1.6-2.6 627) Sticker Operator ID - JACINTO LCBC W/PLT COUNT & AUTO [id number] 04:55:23 Test Item Value Reference Range Interpretation Comments WHITE BLOOD CELL COUNT (BEAKER) 5.3 K/ L 3.5-10.5 (test code = 775) RED BLOOD CELL COUNT (BEAKER) 3.05 M/ L 4.63-6.08 L (test code = 761) HEMOGLOBIN (BEAKER) (test code = 8.4 GM/DL 13.7-17.5 L 410) HEMATOCRIT (BEAKER) (test code = 26.2 % 40.1-51.0 L 411) MEAN CORPUSCULAR VOLUME (BEAKER) 86 fL 79-92 (test code = 753) MEAN CORPUSCULAR HEMOGLOBIN 27.5 pg 25.7-32.2 (BEAKER) (test code = 751) MEAN CORPUSCULAR HEMOGLOBIN CONC 32.1 GM/DL 32.3-36.5 L (BEAKER) (test code = 752) RED CELL DISTRIBUTION WIDTH 15.1 % 11.6-14.4 H (BEAKER) (test code = 412) PLATELET COUNT (BEAKER) (test 126 K/CU MM 150-450 L code = 756) MEAN PLATELET VOLUME (BEAKER) 10.3 fL 9.4-12.4 (test code = 754) NUCLEATED [...] (test code = 437) NEUTROPHILS ABSOLUTE COUNT 4.11 K/ L 1.78-5.38 (BEAKER) (test code = 670) LYMPHOCYTES ABSOLUTE COUNT 0.67 K/ L 1.32-3.57 L (BEAKER) (test code = 414) MONOCYTES ABSOLUTE COUNT (BEAKER) 0.36 K/ L 0.30-0.82 (test code = 415) EOSINOPHILS ABSOLUTE COUNT 0.16 K/ L 0.04-0.54 (BEAKER) (test code = 416) BASOPHILS ABSOLUTE COUNT (BEAKER) 0.01 K/ L 0.01-0.08 (test code = 417) IMMATURE GRANULOCYTES-RELATIVE 0.40 % 0.00-1.00 PERCENT (BEAKER) (test code = 2801) POCT-GLUCOSE [id number] 20:53:15 Test Item Value Reference Range Interpretation Comments POC-GLUCOSE METER 166 mg/dL 70-110 H : TESTED A T [facility] 6720 (BEAKER) (test code = [facility], [facility]) 24690: Sticker Operator/Techni edgar ID = [id number] for RO JEREMY, BABAR POCT-GLUCOSE [id number] 17:57:02 Test Item Value Reference Range Interpretation Comments POC-GLUCOSE METER 206 mg/dL 70-110 H : TESTED A T [facility] 6720 (BEAKER) (test code = [facility], 153) 17579: Sticker Operator/Techni edgar ID = [id number] for Radha patel Kyra POCT-GLUCOSE [id number] 12:45:55 Test Item Value Reference Range Interpretation Comments POC-GLUCOSE METER 285 mg/dL 70-110 H : TESTED A T [facility] 6720 (BEAKER) (test code = [facility], 153) 97725: Sticker Operator/Techni edgar ID = [id number] for KETTY MURRIETACY POCT-GLUCOSE [id number] 08:09:05 Test Item Value Reference Range Interpretation Comments POC-GLUCOSE METER 179 mg/dL 70-110 H : TESTED A T [facility] 6720 (BEAKER) (test code = [place], 1538) 11622: Sticker Operator/Techni edgar ID = [id number] for SUNNY MURRIETA [id number] 06:54:37 Test Item Value Reference Range Interpretation Comments MAGNESIUM (BEAKER) (test code = 1.6 mg/dL 1.6-2.6 627) Sticker Operator ID - JACINTO LBASIC METABOLIC [id number] 06:54:36 Test Item Value Reference Range Interpretation Comments SODIUM (BEAKER) 134 meq/L 136-145 L (test code = 381) POTASSIUM 4.1 meq/L 3.5-5.1 (BEAKER) (test code = 379) CHLORIDE (BEAKER) 101 meq/L 98-107 (test code = 382) CO2 (BEAKER) 24 meq/L 22-29 (test code = 355) BLOOD UREA 32 mg/dL 7-21 H NITROGEN (BEAKER) (test code [...] not appl icable for dialysis patien ts Sticker Operator ID - PIAYA LCBC W/PLT COUNT & AUTO [id number] 06:13:23 Test Item Value Reference Range Interpretation Comments WHITE BLOOD CELL COUNT (BEAKER) 5.8 K/ L 3.5-10.5 (test code = 775) RED BLOOD CELL COUNT (BEAKER) 2.89 M/ L 4.63-6.08 L (test code = 761) HEMOGLOBIN (BEAKER) (test code = 8.1 GM/DL 13.7-17.5 L 410) HEMATOCRIT (BEAKER) (test code = 24.3 % 40.1-51.0 L 411) MEAN CORPUSCULAR VOLUME (BEAKER) 84 fL 79-92 (test code = 753) MEAN CORPUSCULAR HEMOGLOBIN 28.0 pg 25.7-32.2 (BEAKER) (test code = 751) MEAN CORPUSCULAR HEMOGLOBIN CONC 33.3 GM/DL 32.3-36.5 (BEAKER) (test code = 752) RED CELL DISTRIBUTION WIDTH 15.1 % 11.6-14.4 H (BEAKER) (test code = 412) PLATELET COUNT (BEAKER) (test 106 K/CU MM 150-450 L code = 756) MEAN PLATELET VOLUME (BEAKER) 10.1 fL 9.4-12.4 (test code = 754) NUCLEATED RED BLOOD CELLS 0 /100 WBC 0-0 (BEAKER) (test code = 413) NEUTROPHILS RELATIVE PERCENT 78 % (BEAKER) (test code = 429) LYMPHOCYTES RELATIVE PERCENT 14 % (BEAKER) (test code = 430) MONOCYTES RELATIVE PERCENT 7 % (BEAKER) (test code = 431) EOSINOPHILS RELATIVE PERCENT 1 % (BEAKER) (test code = 432) BASOPHILS RELATIVE PERCENT 0 % (BEAKER) (test code = 437) NEUTROPHILS ABSOLUTE COUNT 4.51 K/ L 1.78-5.38 (BEAKER) (test code = 670) LYMPHOCYTES ABSOLUTE COUNT 0.81 K/ L 1.32-3.57 L (BEAKER) (test code = 414) MONOCYTES ABSOLUTE COUNT (BEAKER) 0.39 K/ L 0.30-0.82 (test code = 415) EOSINOPHILS ABSOLUTE COUNT 0.07 K/ L 0.04-0.54 (BEAKER) (test code = 416) BASOPHILS ABSOLUTE COUNT (BEAKER) 0.01 K/ L 0.01-0.08 (test code = 417) IMMATURE GRANULOCYTES-RELATIVE 0.30 % 0.00-1.00 PERCENT (BEAKER) (test code = 2801) POCT-GLUCOSE [id number] 20:34:52 Test Item Value Reference Range Interpretation Comments POC-GLUCOSE METER 331 mg/dL 70-110 H : TESTED A T [facility] 6720 (CLAUDIO) (test code = [place], 1538) 88721: Sticker Operator/Techni edgar ID = [id number] for RO JEREMY, BABAR RAD, KNEE, 1 OR 2 VIEWS, [id number] 17:49:00Reason for exam:->c/f infection - unable to do MRI [facility] 1945 Sex: MFINAL REPORT RAD, KNEE, 1 OR 2 VIEWS, RIGHT, RAD, KNEE, 1 OR 2 VIEWS, LEFT INDICATION: c/f infection - unable to do MRI COMPARISON: None TECHNIQUE: AP, lateral and oblique radiographs of the right and left knees FINDINGS/IMPRESSION:Right knee: Status post total knee arthroplasty and patellar resurfacing. No evidence of hardware malalignment or failure. No significant joint effusion. Left knee: Status post total knee arthroplasty and patellar resurfacing. No evidence of hardware malalignment or failure. No significant joint effusion. Signed: Sandrita Wright Verified Date/Time: 04/09/2022 17:49:20 RAD, KNEE, 1 OR 2 VIEWS, [id number] 17:49:00Reason for exam:- >c/f infection - unable to do MRI [facility]LA[facility] : 1945 Sex: MFINAL REPORT RAD, KNEE, 1 OR 2 VIEWS, RIGHT, RAD, KNEE, 1 OR 2 VIEWS, LEFT INDICATION: c/f infection - unable to do MRI COMPARISON: None TECHNIQUE: AP, lateral and oblique radiographs of the right and left knees FINDINGS/IMPRESSION:Right knee: Status post total knee arthroplasty and patellar resurfacing. No evidence of hardware malalignment or failure. No significant joint effusion. Left knee: Status post total knee arthroplasty and patellar resurfacing. No evidence of hardware malalignment or failure. No significant joint effusion. Signed: Sandrita Wright [facility] Verified Date/Time: 04/09/2022 17:49:20 POCT-GLUCOSE [id number] 17:35:50 Test Item Value Reference Range Interpretation Comments POC-GLUCOSE METER 311 mg/dL 70-110 H : TESTED A T [facility] 6720 (BEAKER) (test code = MARGO White [facility], 1538) 51173: Sticker Operator/Techni edgar ID = [id number] for Jeannette Foster BLOOD CULTURE IDENTIFICATION [id number] 17:29:02 Test Item Value Reference Interpretation Comments Range LISTERIA MONOCYTOGENES Not detected Not detected (test code = 4936517) STAPHYLOCOCCUS (test Not detected Not detected code = 4098933) STAPHYLOCOCCUS AUREUS Not detected Not detected (test code = 2990591) STREPTOCOCCUS (test code Not detected Not detected = 4717038) STREPTOCOCCUS AGALACTIAE Not detected Not detected (GROUP B) (test code = 3984284) STREPTOCOCCUS PNEUMONIAE Not detected Not detected (test code = 0599136) STREPTOCOCCUS PYOGENES Not detected Not detected (GROUP A) (test code = 2408215) ACINETOBACTER BAUMANNII Not detected Not detected (test code = 9258001) HAEMOPHILUS INFLUENZAE Not detected Not detected (test code = 1566764) NEISSERIA MENINGITIDIS Not detected Not detected (test code = 9026148) ENTEROBACTERIACEAE (test Not detected Not detected code = 2167082) ENTEROBACTER CLOACOE Not detected Not detected COMPLEX (test code = 5719201) KLEBSIELLA OXYTOCA (test Not detected Not detected code = 0721119) KLEBSIELLA PNEUMONIAE Not detected Not detected (test code = 1650) PROTEUS (test code = Not detected Not detected 9444680) SERRATIA MARCESCENS Not detected Not detected (test code = 7995861) DEVANTE ALBICANS (test Not detected Not detected code = 2169950) DEVANTE GLABRATA (test Not detected Not detected code = 3766602) DEAVNTE KRUSEI (test Not detected Not detected code = 4182192) DEVANTE PARAPSILOSIS Not detected Not detected (test code = 4477709) DEVANTE TROPICALIS (BKR) Not detected Not detected (test code = 5153952) ESCHERICHIA COLI (test Not detected Not detected code = 6428234) METHICILLIN-RESISTANCE GENE (test code = 7184461) VANCOMYCIN-RESISTANCE Not detected Not detected Note: Antimicrobial GENE (test code = resistance can 5627057) occur via multi ple mechanisms. A N ot Detected result for the [facility] antimicrobial resistance gene assays does not indicate antimicrobial susceptibility. Subculturing is required for species identification and susceptibility testing of isolates. CARBAPENEM-RESISTANCE GENE (test code = 1538181) ENTEROCOCCUS-BEAKER Detected Not detected A Vancomyc in-suscepti (test code = 2945970) ble En terococcus (VSE)First-line therapy: Vancom ycin or Ampicillin (Ampicillin onl y if confirmed susceptible) Reference Range : Not Detected PSEUDOMONAS Not detected Not detected AERUGINOSA-BEAKER (test code = 5535589) Other bacteria and resistance markers not targeted by this PCR panel cannot be excluded; therefore clinical correlation and follow up of serology, culture results, and other molecular studies is required. The results are not intended to be used as the sole means for clinical diagnosis or patient management decisions. This sample was tested at the [facility] using the [employer] Blood Culture ID Panel. It is FDA cleared and has been verified and approved by the [facility] for clinical use. This laboratory is CLIA-certified and College ofAmerican [employer]ologists (CAP)-accredited to perform high complexity testing.POCT-GLUCOSE [id number] 12:20:37 Test Item Value Reference Range Interpretation Comments POC-GLUCOSE METER 265 mg/dL 70-110 H : TESTED A T [facility] 6720 (BEAKER) (test code = MARGO White [facility], 1538) [address]46: Sticker Operator/Techni edgar ID = [id number] for Jeannette Foster POCT-GLUCOSE [id number] 08:40:48 Test Item Value Reference Range Interpretation Comments POC-GLUCOSE METER 235 mg/dL 70-110 H : TESTED A T [facility] 6720 (BEAKER) (test code = [facility], 1538) [address]: Sticker Operator/Techni edgar ID = [id number] for Jeannette Foster PROTHROMBIN TIME/[id number] 06:39:39 Test Item Value Reference Range Interpretation Comments PROTIME (BEAKER) (test code = 17.2 seconds 11.9-14.2 H 759) INR (BEAKER) (test code = 370) 1.50 <=5.90 RECOMMENDED COUMADIN/WARFARIN INR THERAPY RANGESSTANDARD DOSE: 2.0 - 3.0 Includes: PROPHYLAXIS for venous thrombosis, systemic embolization; TREATMENT for venous thrombosis and/or pulmonary embolus.HIGH RISK: Target INR is 2.5-3.5 for patients with mechanical heart valves.SARS-COV2/RT-PCR ([facility]) 2022-04-09 04:26:18 Test Item Value Reference Range Interpretation Comments SARS-COV2/RT-PCR Negative Negative The SARS-Co V-2 target (test code = nucleic acids a re not 4830031) detected in thi s specimen. Negative result s do not preclude SARS-C oV-2 infection and s hould not be used as the chi e basis for patient managem ent decisions. Nega tive results must be combine d with clinical observ ations, patient history , and epidemiological information. A false negativ e result may occur if a spec imen is improperly georgi ected, transported or handled. This SARS CoV-2 [...] revoked sooner. Fact Sheet for Healthcare Providers: https://www.[employer]/Documents/Xpert%20Xpress%20SARS%20CoV-2/Fact%20Sheets/302-3802%59QZWL-TBZ-2%20 HEALTHCARE%20PROVIDERS%20FACT%20SHEET.pdf Fact Sheet for Healthcare Patients: https://www.[employer]/Documents/Xpert%20Xp ress%20SARS%20CoV-2/Fact%20Sheets/3023801%59ENLM-UZM-1%20PATIENT%20FACT%20SHEET .pdfCOMPREHENSIVE METABOLIC [id number] 04:14:41 Test Item Value Reference Range Interpretation Comments TOTAL PROTEIN 7.5 gm/dL 6.0-8.3 (BEAKER) (test code = 770) ALBUMIN (BEAKER) 2.8 g/dL 3.5-5.0 L (test code = 1145) ALKALINE 78 U/L 40-150 PHOSPHATASE (BEAKER) (test code = 346) BILIRUBIN TOTAL 1.0 mg/dL 0.2-1.2 (BEAKER) (test code = 377) SODIUM (BEAKER) 134 meq/L 136-145 L (test code = 381) POTASSIUM (BEAKER) 4.3 meq/L 3.5-5.1 (test code = 379) CHLORIDE (BEAKER) 101 meq/L 98-107 (test code = 382) CO2 (BEAKER) (test 23 meq/L 22-29 code = 355) BLOOD UREA 31 mg/dL 7-21 H NITROGEN (BEAKER) (test code = 354) CREATININE 1.45 mg/dL 0.57-1.25 H (BEAKER) (test code = 358) GLUCOSE RANDOM 241 mg/dL 70-105 H (BEAKER) (test code = 652) CALCIUM (BEAKER) 9.4 mg/dL 8.4-10.2 (test code = 697) AST (SGOT) 55 U/L 5-34 H (BEAKER) (test code = 353) ALT (SGPT) 39 U/L 6-55 (BEAKER) (test code = 347) EGFR (BEAKER) 51 Interpretatio n of eGFR (test code = [...] not appl icable for dialysis patien ts Sticker Operator ID - JACINTO LC-REACTIVE [id number] 04:14:41 Test Item Value Reference Range Interpretation Comments C-REACTIVE PROTEIN (BEAKER) (test 23.69 mg/dL 0.00-0.50 H code = 676) Sticker Operator ID - JACINTO LVANCOMYCIN LEVEL, [id number] 04:02:30 Test Item Value Reference Range Interpretation Comments VANCOMYCIN TROUGH (BEAKER) (test 15.4 ug/mL 10.0-20.0 code = 522) Sticker Operator ID - JACINTO LCBC W/PLT COUNT & AUTO [id number] 04:02:12 Test Item Value Reference Range Interpretation Comments WHITE BLOOD CELL COUNT (BEAKER) 6.0 K/ L 3.5-10.5 (test code = 775) RED BLOOD CELL COUNT (BEAKER) 2.98 M/ L 4.63-6.08 L (test code = 761) HEMOGLOBIN (BEAKER) (test code = 8.2 GM/DL 13.7-17.5 L 410) HEMATOCRIT (BEAKER) (test code = 25.4 % 40.1-51.0 L 411) MEAN CORPUSCULAR VOLUME (BEAKER) 85 fL 79-92 (test code = 753) MEAN CORPUSCULAR HEMOGLOBIN 27.5 pg 25.7-32.2 (BEAKER) (test code = 751) MEAN CORPUSCULAR HEMOGLOBIN CONC 32.3 GM/DL 32.3-36.5 (BEAKER) (test code = 752) RED CELL DISTRIBUTION WIDTH 15.0 % 11.6-14.4 H (BEAKER) (test code = 412) PLATELET COUNT (BEAKER) (test 106 K/CU MM 150-450 L code = 756) MEAN PLATELET VOLUME (BEAKER) 10.0 fL 9.4-12.4 (test code = 754) NUCLEATED RED BLOOD CELLS 0 /100 WBC 0-0 (BEAKER) (test code = 413) NEUTROPHILS RELATIVE PERCENT 83 % (BEAKER) (test code = 429) LYMPHOCYTES RELATIVE PERCENT 11 % (BEAKER) (test code = 430) MONOCYTES RELATIVE PERCENT 5 % (BEAKER) (test code = 431) EOSINOPHILS RELATIVE PERCENT 1 % (BEAKER) (test code = 432) BASOPHILS RELATIVE PERCENT 0 % (BEAKER) (test code = 437) NEUTROPHILS ABSOLUTE COUNT 4.91 K/ L 1.78-5.38 (BEAKER) (test code = 670) LYMPHOCYTES ABSOLUTE COUNT 0.67 K/ L 1.32-3.57 L (BEAKER) (test code = 414) MONOCYTES ABSOLUTE COUNT (BEAKER) 0.30 K/ L 0.30-0.82 (test code = 415) EOSINOPHILS ABSOLUTE COUNT 0.04 K/ L 0.04-0.54 (BEAKER) (test code = 416) BASOPHILS ABSOLUTE COUNT (BEAKER) 0.01 K/ L 0.01-0.08 (test code = 417) IMMATURE GRANULOCYTES-RELATIVE 0.30 % 0.00-1.00 PERCENT (BEAKER) (test code = 2801) LACTIC ACID, [id number] 03:56:51 Test Item Value Reference Range Interpretation Comments LACTATE BLOOD VENOUS 1.24 mmol/L 0.50-2.20 Specime n slightly (2) (BEAKER) (test hemolyzed code = 2794) Sticker Operator ID - JACINTO GONZALEZ-MITOCHONDRIAL AB, REFLEX TO [id number] 10:46:02 Test Item Value Reference Range Interpretation Comments SCAN RESULT (test code = 1096002) PHOSPHATIDYLETHANOL, [id number] 15:28:13 Test Item Value Reference Range Interpretation Comments PHOSPHATIDYLETHANOL (PETH) See scanned (test code = 4804327) report See scanned reportPOC-Glucose [id number] 07:48:54 Test Item Value Reference Range Interpretation Comments POC-Glucose Meter (test 184 mg/dL 70-110 H : TE STED AT [facility] code = 1538) [address] [facility], 770 30: Sticker Operator/Techni edgar ID = [id number] for [place] ie Lab Interpretation (test Abnormal code = 73410-0) [facility] [id number] 07:48:54 Test Item Value Reference Range Interpretation Comments POC-GLUCOSE METER 184 mg/dL 70-110 H : TESTED A T [facility] 6720 (BEAKER) (test code [facility], = 1538) [address]: Sticker Operator/Techni edgar ID = [id number] for Maribeth Shultz [id number] 05:28:46 Test Item Value Reference Range Interpretation Comments MAGNESIUM (BEAKER) (test code = 1.4 mg/dL 1.6-2.6 L 627) Sticker Operator ID - PIAYA LPOCT-GLUCOSE [id number] 00:12:17 Test Item Value Reference Range Interpretation Comments POC-GLUCOSE METER 197 mg/dL 70-110 H : TESTED A T [facility] 6720 (BEAKER) (test code = [facility], 1538) 755[address]: Sticker Operator/Techni edgar ID = [id number] for CLARISSA PFEIFFER POCT-GLUCOSE [id number] 21:47:16 Test Item Value Reference Range Interpretation Comments POC-GLUCOSE METER 207 mg/dL 70-110 H : TESTED A T [facility] 6720 (BEAKER) (test code = [facility], 1538) 19891: Sticker Operator/Techni edgar ID = [id number] for SANDEEP LOTT POCT-GLUCOSE [id number] 17:30:32 Test Item Value Reference Range Interpretation Comments POC-GLUCOSE METER 222 mg/dL 70-110 H : TESTED A T [facility] 6720 (BEAKER) (test code [facility], = 1538) 32809: Sticker Operator/Techni edgar ID = [id number] for Maribeth Shultz PET/CT, WHOLE BODY [id number] 14:25:00Unlisted Reason for Exam - Click Yes and Enter Reason Below->YesUnlisted Reason for Exam->bacteremia - no known sourceCH[facility]. [facility]ENTERName: [facility]ILL[facility] FLAHERTY : 1945 Sex: MFINAL REPORT PROCEDURE: FDG PET/CT for Inflammation/Infection CPT CODE: 55889 HISTORY: Intermittent bacteremia, fever INDICATION: FDG PET/CT [...] then by PET imaging. Signed: Juvenal Shine MDReport Verified Date/Time: 02/25/2022 14:25:36 POCT-GLUCOSE [id number] 11:34:37 Test Item Value Reference Range Interpretation Comments POC-GLUCOSE METER 211 mg/dL 70-110 H : TESTED A T [facility] 6720 (BEAKER) (test code = MARGO White [facility], 1538) [address]26[address]: Sticker Operator/Techni edgar ID = [id number] for Eligio Brady BASIC METABOLIC [id number] 10:56:15 Test Item Value Reference Range Interpretation [...] not appl icable for dialysis patien ts Sticker Operator ID - MARIORS-CoV2/RT-PCR (Asymptomatic ONLY)2022-02-25 08:55:41 Test Item Value Reference Interpretation Comments Range SARS-COV2/RT-PCR Negative Negative The SARS-Co V-2 (test code = target nucleic 75831-4) acids are not detected in thi s [...] revoked sooner. Fact Sheet for Healthcare Providers: https://www.[employer]/Documents/Xp ert%20Xpress%20SAR S%20CoV-2/Fact%20S heets/302-6112%20S ARS-COV-2%20HEALTH CARE%20PROVIDERS%2 0FACT%20SHEET.pdf Fact Sheet for Healthcare Patients: https://www.[employer]/Documents/Xp ert%20Xpress%20SAR S%20CoV-2/Fact%20S heets/302-3801%20S ARS-COV-2%20PATIEN T%20FACT%20SHEET.p df Lab Interpretation Normal (test code = 64338-9) [facility]2022-02-25 08:55:41 Test Item Value Reference Range Interpretation Comments SARS-COV2/RT-PCR Negative Negative The SARS-Co V-2 target (test code = nucleic acids a re not 4540812) detected in thi s specimen. Negative result s do not preclude SARS-C oV-2 infection and s hould not be used as the chi e basis for patient managem ent decisions. Nega tive results must be combine d with clinical observ ations, patient history , and epidemiological information. A false negativ e result may occur if a spec imen is improperly georgi ected, transported or handled. This SARS CoV-2 [...] revoked sooner. Fact Sheet for Healthcare Providers: https://www.[employer]/Documents/Xpert%20Xpress%20SARS%20CoV-2/Fact%20Sheets/302-3802%57CAEO-XPU-8%20 HEALTHCARE%20PROVIDERS%20FACT%20SHEET.pdf Fact Sheet for Healthcare Patients: https://www.[employer]/Documents/Xpert%20Xp ress%20SARS%20CoV-2/Fact%20Sheets/302-3801%60LMAJ-FSP-1%20PATIENT%20FACT%20SHEET .pdfPOCT-GLUCOSE [id number] 08:14:16 Test Item Value Reference Range Interpretation Comments POC-GLUCOSE METER 192 mg/dL 70-110 H : TESTED A T [facility] 6720 (BEAKER) (test code [facility], = 1538) [address]32: Sticker Operator/Techni edgar ID = [id number] for Maribeth Shultz BASIC METABOLIC [id number] 05:58:38 Test Item Value Reference Range Interpretation [...] not appl icable for dialysis patien ts Sticker Operator ID - MARCOCBC W/PLT COUNT & AUTO [id number] 05:11:55 Test Item Value Reference Range Interpretation [...] PERCENT (BEAKER) (test code = 2801) POCT-GLUCOSE [id number] 21:24:31 Test Item Value Reference Range Interpretation Comments POC-GLUCOSE METER 229 mg/dL 70-110 H : TESTED A T [facility] 6720 (BEAKER) (test code = [facility], 1538) 71341: Sticker Operator/Techni edgar ID = [id number] for RO BABAR LUNA POCT-GLUCOSE [id number] 17:58:00 Test Item Value Reference Range Interpretation Comments POC-GLUCOSE METER 256 mg/dL 70-110 H : TESTED A T [facility] 6720 (BEAKER) (test code = [facility], 1538) 58024: Sticker Operator/Techni edgar ID = [id number] for OR PHEY, MARYLOU HEPATIC FUNCTION [id number] 13:05:15 Test Item Value Reference Range Interpretation [...] (test code = 19 U/L 6-55 347) Sticker Operator ID - BSPOCT-GLUCOSE [id number] 12:11:41 Test Item Value Reference Range Interpretation Comments POC-GLUCOSE METER 310 mg/dL 70-110 H : TESTED A T [facility] 6720 (BEAKER) (test code = [facility], 1538) 16565: Sticker Operator/Techni edgar ID = [id number] for OR PHEY, MARYLOU POCT-GLUCOSE [id number] 08:36:09 Test Item Value Reference Range Interpretation Comments POC-GLUCOSE METER 216 mg/dL 70-110 H : TESTED A T [facility] 6720 (BEAKER) (test code = [facility], 1538) 41174: Sticker Operator/Techni edgar ID = [id number] for OR PHEY, MARYLOU BASIC METABOLIC [id number] 08:20:34 Test Item Value Reference Range Interpretation [...] De scription 1092) sq m Result G1 Norm al or high >=90 G2 Mildly decreased 60-89 G3a Mildl y to moderately 45-5 9 G3b Moderately to s everely 30-44 G4 Severl y decreased 15-29 G5 Kidne y failure <15Reported eGF R is based on the CKD-EPI 2020 equation that d oes not use a race coefficientEsti mated GFR is not as accur ate as Creatinine Montserrat romo in predicting glom erular filtration rate . Estimated GFR is not appl icable for dialysis patien ts Sticker Operator ID - GABRIELA GOperator ID - GABRIELA GOperator ID - GABRIELA GCBC W/PLT COUNT & AUTO [id number] 06:11:39 Test Item Value Reference Range Interpretation [...] PERCENT (BEAKER) (test code = 2801) POCT-GLUCOSE [id number] 20:05:46 Test Item Value Reference Range Interpretation Comments POC-GLUCOSE METER 313 mg/dL 70-110 H : TESTED Vanesa T [facility] 6720 (BEAKER) (test code = [place], 1538) [address]: Sticker Operator/Techni edgar ID = [id number] for PI TTS, HALEY RAD, CHEST, 1 VIEW, NON [id number] 17:47:00Reason for exam:->check picc placementShould this be performed at the bedside?->Yesmay need grid, pt 6'8" 300lbs+[facility] : 1945 Sex: [...] MDReport Verified Date/Time: 02/23/2022 17:47:24 POCT- GLUCOSE [id number] 17:30:37 Test Item Value Reference Range Interpretation Comments POC-GLUCOSE METER 320 mg/dL 70-110 H : TESTED A T [facility] 6720 (CLAUDIO) (test code [facility], = 1538) 96[address]: Sticker Operator/Techni edgar ID = [id number] for Brandi Field Transesophageal [id number] 16:29:59Ejection FractionSLEH ECHO HEARTLAB MKCKESSON [facility]odium, random [id number] 14:12:52 Test Item Value Reference Range Interpretation Comments Sodium Urine (test 125 meq/L code = 2955-3) SAMPSON (test code = Reference Range: No SAMPSON) NormalsOperator ID - KELSEA Fulton ALTAGRACIA [facility] CenterODIUM, RANDOM [id number] 14:12:52 Test Item Value Reference Range Interpretation Comments SODIUM URINE (BEAKER) (test code = 125 meq/L 243) Reference Range: No NormalsOperator ID - KELSEA DPOCT-GLUCOSE [id number] 12:15:01 Test Item Value Reference Range Interpretation Comments POC-GLUCOSE METER 195 mg/dL 70-110 H : TESTED A T [facility] 6720 (BEAKER) (test code [facility], = 1538) 77359: Sticker Operator/Techni edgar ID = [id number] for Angelica Fieldline BLOOD [id number] 12:04:13 Test Item Value Reference Range Interpretation Comments CULTURE (BEAKER) (test No growth in 5 days code = 1095) BLOOD [id number] 12:04:13 Test Item Value Reference Range Interpretation Comments CULTURE (BEAKER) (test No growth in 5 days code = 1095) POCT-GLUCOSE [id number] 07:20:54 Test Item Value Reference Range Interpretation Comments POC-GLUCOSE METER 214 mg/dL 70-110 H : TESTED A T [facility] 6720 (BEAKER) (test code [facility], = 1538) 14715: Sticker Operator/Techni edgar ID = [id number] for Brandi Field (CELLAVISION MANUAL DIFF)2022-02-23 07:20:23 [...] CONCENTRATION Decreased (CELLAVISION)(BEAKER) (test code = 3438) Sticker Operator ID - Lluvia Tobias comments: Slide comments:CBC W/PLT COUNT & AUTO [id number] 07:20:22 Test Item Value Reference Range Interpretation [...] 0-0 (test code = 413) BASIC METABOLIC [id number] 05:34:48 Test Item Value Reference Range Interpretation [...] not appl icable for dialysis patien ts Sticker Operator ID - ARIA WPOCT-GLUCOSE [id number] 21:30:33 Test Item Value Reference Range Interpretation Comments POC-GLUCOSE METER 274 mg/dL 70-110 H : TESTED A T [facility] 6720 ([employer]) (test code = [place], 1538) [address]911: Sticker Operator/Techni edgar ID = [id number] for Br isQue kaura POCT-GLUCOSE [id number] 17:25:41 Test Item Value Reference Range Interpretation Comments POC-GLUCOSE METER 297 mg/dL 70-110 H : TESTED A T [facility] 6720 (BEAKER) (test code [facility], = 1538) 20873: Sticker Operator/Techni edgar ID = [id number] for Maribeth Shultz ANTI-NUCLEAR ANTIBODY (ARACELIS)2022 15:02:26 Test Item Value Reference Range Interpretation Comments ANTI-NUCLEAR ANTIBODY (ARACELIS) (BEAKER) Negative Negative (test code = 418) Test performed by IFA method.Test performed by IFA method.POCT-GLUCOSE METER 2022 14:58:47 Test Item Value Reference Range Interpretation Comments POC-GLUCOSE METER 213 mg/dL 70-110 H : TESTED A T [facility] 6720 (BEAKER) ([facility] = [facility], 1538) 88461: Sticker Operator/Techni edgar ID = [id number] for LJ BUTLER POCT-GLUCOSE [id number] 12:21:28 Test Item Value Reference Range Interpretation Comments POC-GLUCOSE METER 209 mg/dL 70-110 H : TESTED A T [facility] 6720 (BEAKER) (test code [facility], = 1538) 85311: Sticker Operator/Techni edgar ID = [id number] for Maribeth Shultz POCT-GLUCOSE [id number] 08:40:37 Test Item Value Reference Range Interpretation Comments POC-GLUCOSE METER 195 mg/dL 70-110 H : TESTED A T [facility] 6720 (BEAKER) (test code [facility], = 1538) 52971: Sticker Operator/Techni edgar ID = [id number] for Maribeth Shultz ALPHA FETOPROTEIN (AFP), TUMOR [id number] 05:59:46 Test Item Value Reference Range Interpretation Comments ALPHA-FETOPROTEIN (BEAKER) (test code < ng/mL <10.0 = 1094) Sticker Operator ID - BSBASIC METABOLIC [id number] 05:38:41 Test Item Value Reference Range Interpretation [...] not appl icable for dialysis patien ts Sticker Operator ID - BSCBC W/PLT COUNT & AUTO [id number] 05:22:37 Test Item Value Reference Range Interpretation [...] PERCENT (BEAKER) (test code = 2801) POCT-GLUCOSE [id number] 23:26:45 Test Item Value Reference Range Interpretation Comments POC-GLUCOSE METER 377 mg/dL 70-110 H : TESTED A T [facility] 67 ([facility]) (test code = [facility], 1538) 24941: Sticker Operator/Techni edgar ID = [id number] for Br istol, Nykia POCT-GLUCOSE [id number] 21:37:47 Test Item Value Reference Range Interpretation Comments POC-GLUCOSE METER 413 mg/dL 70-110 HH : Notified RN/MD: ([facility]) (test code = TESTED AT [facility] 6720 1538) [facility], [address]: Sticker Operator/Techni edgar ID = [id number] for Br istol, Nykia [id number] 18:09:28 Test Item Value Reference Range Interpretation Comments FERRITIN ([facility]) (test code = 381.25 ng/mL 5.00-275.00 H 361) Sticker Operator ID - BSPOCT-GLUCOSE [id number] 17:39:43 Test Item Value Reference Range Interpretation Comments POC-GLUCOSE METER 264 mg/dL 70-110 H : TESTED A T [facility] 6720 (BEAKER) (test code = [place], 1538) 57[address]: Sticker Operator/Techni edgar ID = [id number] for RAIMUNDO SINGH HEPATITIS B SURFACE [id number] 17:23:36 Test Item Value Reference Range Interpretation Comments HEPATITIS B SURFACE ANTIBODY < mIU/mL <8.0 (BEAKER) (test code = 647) Sticker Operator ID - ADMINHEPATITIS A ANTIBODY, [id number] 17:23:00 Test Item Value Reference Range Interpretation Comments HEPATITIS A IGG ANTIBODY (BEAKER) Nonreactive Nonreactive (test code = 2797) Sticker Operator ID - ADMINHEPATITIS C [id number] 17:22:59 Test Item Value Reference Range Interpretation Comments HEPATITIS C ANTIBODY (BEAKER) Nonreactive Nonreactive (test code = 367) Sticker Operator ID - ADMINHEPATITIS B CORE ANTIBODY, [id number] 17:22:59 Test Item Value Reference Range Interpretation Comments HEPATITIS B CORE TOTAL ANTIBODY Nonreactive Nonreactive (BEAKER) (test code = 497) Sticker Operator ID - ADMINHEPATITIS B SURFACE [id number] 17:22:58 Test Item Value Reference Range Interpretation Comments HEPATITIS B SURFACE ANTIGEN (2) Nonreactive Nonreactive (BEAKER) (test code = 2585) Specimen is considered negative for HBsAg.IRON, TIBC, % SAT. (WITHOUT FERRITIN) 2022-02-21 17:06:37 Test Item Value Reference Range Interpretation Comments IRON (BEAKER) (test code = 547) 29.0 ug/dL 40.0-160.0 L TOTAL IRON BINDING CAPACITY 189 ug/dL 250-450 L (BEAKER) (test code = 769) IRON % SATURATION (2) (BEAKER) 15 % 20-55 L (test code = 2590) Sticker Operator ID - ZMHDSCW-3-[id number] 17:00:35 Test Item Value Reference Range Interpretation Comments ALPHA-1 ANTITRYPSIN (BEAKER) 260.90 mg/dL 90.00-200.00 H (test code = 502) Sticker Operator ID - ADMINPOCT-GLUCOSE [id number] 13:08:44 Test Item Value Reference Range Interpretation Comments POC-GLUCOSE METER 309 mg/dL 70-110 H : TESTED A Kirsten [facility] 6720 (CLAUDIO) (test code = [place], 1538) 316[address]: Sticker Operator/Techni edgar ID = [id number] for RAIMUNDO SINGH CT, [id number] 08:15:00Unlisted Reason for Exam - Click Yes and Enter Reason Below->YesUnlisted Reason for Exam->Bacteremia, R/O abd sourceProtocol Please Specify:->Standard ProtocolWill this procedure require oral contrast?->Yes [facility] : 1945 Sex: [...] or pelvis.5. Left adrenal mass. Signed: Kartik Cottrell MDReport Verified Date/Time: 02/21/2022 08:15:45 Reading Location: [facility] C013Y [facility] Reading Room POCT-GLUCOSE [id number] 07:53:25 Test Item Value Reference Range Interpretation Comments POC-GLUCOSE METER 234 mg/dL 70-110 H : TESTED A T [facility] 6720 (BEAKER) (test code = [facility], 153) 50432: Sticker Operator/Techni edgar ID = [id number] for RAIMUNDO SINGH POCT-GLUCOSE [id number] 20:39:36 Test Item Value Reference Range Interpretation Comments POC-GLUCOSE METER 249 mg/dL 70-110 H : TESTED A T [facility] 6720 (BEAKER) (test code = [facility], 1538) 64685: Sticker Operator/Techni edgar ID = [id number] for RO JEREMYNITINBABAR POCT-GLUCOSE [id number] 17:41:40 Test Item Value Reference Range Interpretation Comments POC-GLUCOSE METER 180 mg/dL 70-110 H : TESTED A T [facility] 6720 (BEAKER) (test code = [facility], 153) 60855: Sticker Operator/Techni edgar ID = [id number] for Monisha Fosterssa Urinalysis w/Microscopic + Reflex to [id number] 17:33:49 Test Item Value Reference Range Interpretation Comments Color, UA (test code Yellow = 5778-6) Clarity, UA (test Clear code = 5767-9) Specific [place], UA 1.021 1.001-1.035 (test code = 5811-5) pH, UA (test code = 5.5 5.0-8.0 5803-2) Protein, UA (test 30 mg/dL Negative A code = 95604-7) Glucose, UA (test Negative Negative code = 365) Ketones, UA (test Negative Negative code = 2514-8) Bilirubin, UA (test Negative Negative code = 31972-3) Blood, UA (test code Negative Negative = 34453-1) Nitrite, UA (test Negative Negative code = 5802-4) Leukocytes, UA (test Negative Negative code = 5799-2) Urobilinogen, UA 0.2 0.2-1.0 (test code = 48201-5) RBC, UA (test code = <1 See_Comment [Autom ated 91459-2) message] The system which generated this result [...] = 2795) SAMPSON (test code = SAMPSON) Sticker Operator ID - [auto] Lab Interpretation Abnormal (test code = 85296-7) [facility] UR[facility] [id number] 17:33:49 Test Item Value Reference Range Interpretation [...] 520) < /HPF SOURCE(BEAKER) (test code = 2795) Sticker Operator ID - [auto]POCT-GLUCOSE [id number] 12:30:56 Test Item Value Reference Range Interpretation Comments POC-GLUCOSE METER 241 mg/dL 70-110 H : TESTED A T [facility] 6720 (BEAKER) (test code = [facility], 1538) [address]443: Sticker Operator/Techni edgar ID = [id number] for Ba Bridget storeya POCT-GLUCOSE [id number] 08:29:42 Test Item Value Reference Range Interpretation Comments POC-GLUCOSE METER 184 mg/dL 70-110 H : TESTED A T [facility] 6720 (BEAKER) (test code = [facility], 1538) 54254: Sticker Operator/Techni edgar ID = [id number] for Ba Bridget storeya HEPATIC FUNCTION [id number] 07:41:31 Test Item Value Reference Range Interpretation [...] (test code = 25 U/L 6-55 347) Sticker Operator ID - JACINTO LBASIC METABOLIC [id number] 07:41:30 Test Item Value Reference Range Interpretation [...] (test code = 697) EGFR (BEAKER) 45 Interpretati on of eGFR (test code = [...] not appl icable for dialysis patien ts Sticker Operator ID - FAWADDONAVON [id number] 07:41:30 Test Item Value Reference Range Interpretation Comments MAGNESIUM (BEAKER) (test code = 1.8 mg/dL 1.6-2.6 627) Sticker Operator ID July CELESTINDONAVON LCBC W/PLT COUNT & AUTO [id number] 04:22:06 Test Item Value Reference Range Interpretation [...] 417) IMMATURE GRANULOCYTES-RELATIVE 0.20 % 0.00-1.00 PERCENT (BEAKER) (test code = 2801) POCT-GLUCOSE [id number] 21:14:44 Test Item Value Reference Range Interpretation Comments POC-GLUCOSE METER 151 mg/dL 70-110 H : TESTED A T [facility] 6720 (BEAKER) (test code = [place]GO [place], 1538) [address]: Sticker Operator/Techni edgar ID = [id number] for BABAR NOVOA POCT-GLUCOSE [id number] 17:37:39 Test Item Value Reference Range Interpretation Comments POC-GLUCOSE METER 174 mg/dL 70-110 H : TESTED A T [facility] 6720 (BEAKER) (test code = [place], 1538) [address]: Sticker Operator/Techni edgar ID = [id number] for BABAR NOVOA Respiratory Panel [id number] 15:45:57 Test Item Value Reference Range Interpretation Comments Human Metapneumovirus Not detected Not detected, (test code = 41598-8) Equivocal Rhinovirus (test code = Not detected Not detected, 70660-7) Equivocal INFLUENZA A (NO Not detected Not detected, SUBTYPE) (test code = Equivocal 08838-4) Influenza A subtype H1 (test code = 01006-2) Influenza A Subtype H3 (test code = 86845-4) Influenza A Subtype H1-2009 (test code = 48686-5) Influenza B (test code Not detected Not detected, = 85593-0) Equivocal Respiratory Syncytial Not detected Not detected, Virus (test code = Equivocal 44820-5) Parainfluenza Virus 1 Not detected Not detected, (test code = 17979-0) Equivocal Parainfluenza Virus 2 Not detected Not detected, (test code = 44928-6) Equivocal Parainfluenza virus 3 Not detected Not detected, (test code = 41681-4) Equivocal Parainfluenza Virus 4 Not detected Not detected, (test code = 51435-6) Equivocal Adenovirus (test code = Not detected Not detected, 88095-4) Equivocal Coronavirus 229E (test Not detected Not detected, code = 36208-1) Equivocal Coronavirus HKU1 (test Not detected Not detected, code = 16151-3) Equivocal Coronavirus NL63 (test Not detected Not detected, code = 97643-7) Equivocal Coronavirus OC43 (test Not detected Not detected, code = 38824-9) Equivocal Bordetella Pertussis Not detected Not detected, (test code = 72463-1) Equivocal Chlamydophila Not detected Not detected, Pneumoniae (test code = Equivocal 90535-0) Mycoplasma Pneumoniae Not detected Not detected, (test code = 03946-2) Equivocal Severe Acute Not detected Not detected, Tzowwbofoec-BhI-0 (test Equivocal code = 78333-9) Bordtella Parapertussis Not detected Not detected, (test code = 87156-0) Equivocal SAMPSON (test code = SAMPSON) Other viruses and bacteria not targeted by this PCR panel cannot be excluded; therefore clinical correlation and follow up of serology, culture results, and other molecular studies is required. The results are not intended to be used as the sole means for clinical diagnosis or patient management decisions. This sample was tested at the [facility] using the Ocean ExecutiveArray Respiratory Panel. It is FDA cleared and has been verified and approved by the [facility] for clinical use on nasopharyngeal swab specimens. The performance of the FilmArray RP has not been established in individuals who received influenza vaccine. Recent administration of a nasal influenza vaccine may cause false positive results for Influenza A and/orInfluenza B. [facility] Diego[facility]PIRAT[facility] [id number] 15:45:57 Test Item Value Reference Range Interpretation [...] SEVERE ACUTE RESPIRATORY Not detected Not detected, DGARPWKC-GDJYCSVDRNR-8 Equivocal (test code = 5072680) BORDETELLA PARAPERTUSSIS Not detected Not detected, (BKR) (test code = 9247297) Equivocal Other viruses and bacteria not targeted by this PCR panel cannot be excluded; therefore clinical correlation and follow up of serology, culture results, and other molecular studies is required. The results are not intended to be used as the sole means for clinical diagnosis or patient management decisions. This sample was tested at the [facility] using the [employer] ExecutiveArray Respiratory Panel. It is FDA cleared and has been verified and approved by the [facility] for clinical use on nasopharyngeal swab specimens.The performance of the FilmArrayRP has not been established in individuals who received influenza vaccine. Recent administration of a nasal influenza vaccine may cause false positive results for Influenza A and/orInfluenza B.POCT-GLUCOSE [id number] 12:35:54 Test Item Value Reference Range Interpretation Comments POC-GLUCOSE METER 213 mg/dL 70-110 H : TESTED A T [facility] 6720 (BEAKER) (test code = [facility], 1538) 52416: Sticker Operator/Techni edgar ID = [id number] for SUNNY MURRIETA POCT-GLUCOSE [id number] 07:54:11 Test Item Value Reference Range Interpretation Comments POC-GLUCOSE METER 170 mg/dL 70-110 H : TESTED A T [facility] 6720 (BEAKER) (test code = [facility], 1538) 87911: Sticker Operator/Techni edgar ID = [id number] for SUNNY MURRIETA [id number] 05:30:53 Test Item Value Reference Range Interpretation Comments MAGNESIUM (BEAKER) (test code = 1.8 mg/dL 1.6-2.6 627) Sticker Operator ID - JACINTO LHEPATIC FUNCTION [id number] 05:30:53 Test Item Value Reference Range Interpretation [...] (test code = 25 U/L 6-55 347) Sticker Operator JULIANA - JACINTO BORREGOASIC METABOLIC [id number] 05:30:52 Test Item Value Reference Range Interpretation [...] not appl icable for dialysis patien ts Sticker Operator ID - PIAYA LCBC W/PLT COUNT & AUTO [id number] 04:49:59 Test Item Value Reference Range Interpretation [...] (test code = 2801) CT, CHEST, WITHOUT [id number] 21:50:00Evaluate for pneumonia [facility] 1945 Sex: [...] A calcified granuloma within the right upper lobeis consistent with previous granulomatous disease. The lungs are otherwise clear. No significant findings in the partially imaged abdomen. No aggressive osseous lesion. Impression:No acute findings in the chest. Specifically, there is no evidence of pneumonia. Signed: Valerio Pantoja MDReport VerifiedDate/Time: 02/18/2022 21:50:15 VANCOMYCIN LEVEL, RANDOM 2022-02-18 21:20:55 Test Item Value Reference Range Interpretation Comments VANCOMYCIN RANDOM (BEAKER) (test 5.7 ug/mL code = 523) Reference Range: No NormalsOperator ID - JACINTO LPOCT-GLUCOSE [id number] 21:02:39 Test Item Value Reference Range Interpretation Comments POC-GLUCOSE METER 216 mg/dL 70-110 H : TESTED A T [facility] 6720 ([employer]) (test code = [place], 1538) 25265: Sticker Operator/Techni edgar ID = [id number] for PH MARIEL SANTA Strep pneumoniae antigen [id number] 20:45:57 Test Item Value Reference Range Interpretation Comments Strep pneumoniae Presumptive negative Presumptive Antigen (test code = [place] [address]-3) pneumonia - see pneumococcal comment pneumonia - [...] test. Lab Interpretation Normal (test code = 95934-6) [facility] [id number] 20:45:57 Test Item Value Reference Range Interpretation Comments STREP PNEUMONIAE Presumptive negative Presumptive negative ANTIGEN (AKER) for pneumococcal for pneumococcal (test code = 1615) pneumonia - see pneumonia - see comment commen Presumptive negative for pneumococcal pneumonia, suggesting no current or recent pneumococcal infection. Infection due to S. pneumoniae cannot be ruled out since the antigen present in the sample may be below the detection limit of the test.POCT-GLUCOSE [id number] 18:19:48 Test Item Value Reference Range Interpretation Comments POC-GLUCOSE METER 243 mg/dL 70-110 H : TESTED A T [facility] 6720 ([employer]) (test code = [facility], 1538) 51541: Sticker Operator/Techni edgar ID = [id number] for CR UZ, BRADY 2D Echo W/Doppler(CW/PW/Color)2022-02-18 16:51:10Ejection FractionSLEH ECHO HEARTLAB MKCKESSON CPACSCHI [facility] San DiegoPOCT-GLUCOSE [id number] 13:40:08 Test Item Value Reference Range Interpretation Comments POC-GLUCOSE METER 140 mg/dL 70-110 H : TESTED A T [facility] 6720 (CLAUDIO) (test code = [place], 1538) [address]: Sticker Operator/Techni edgar ID = [id number] for CO TARI AMADOR SARS-COV2/RT-PCR ([facility])2022-02-18 13:02:31 Test Item Value Reference Range Interpretation Comments SARS-COV2/RT-PCR Negative Negative The SARS-Co V-2 target (test code = nucleic acids a re not 8175134) detected in thi s specimen. Negative result s do not preclude SARS-C oV-2 infection and s hould not be used as the chi e basis for patient managem ent decisions. Nega tive results must be combine d with clinical observ ations, patient history , and epidemiological information. A false negativ e result may occur if a spec imen is improperly georgi ected, transported or handled. This SARS CoV-2 [...] revoked sooner. Fact Sheet for Healthcare Providers: https://www.[employer].co m/Documents/Xpert%20Xpress%20SARS%20CoV-2/Fact%20Sheets/271-3802%35DBCQ-BOA-6%20 HEALTHCARE%20PROVIDERS%20FACT%20SHEET.pdf Fact Sheet for Healthcare Patients: https://www.[employer]/Documents/Xpert%20Xp ress%20SARS%20CoV-2/Fact%20Sheets/3023801%44YHKH-AZI-1%20PATIENT%20FACT%20SHEET .pdfHEMOGLOBIN [id number] 09:43:51 Test Item Value Reference Range Interpretation Comments HEMOGLOBIN A1C 6.5 % See_Comment H [Automated m essage] ELECTROPHORESIS (CLAUDIO) The system which (test code = 3811) generated this result transmitted ref erence range: <=5.6%. The reference range was not used to int erpret this result as normal/abnormal . "The A1c is measured using a NGSP-certified method. HbA1c value equal to or greater than 6.5% as thediagnosis cutoff for diabetes. An HbA1c value of 5.7- 6.4% indicates increased risk for diabetes (prediabetes)."Sticker Operator ID - ADMRAD, CHEST, 1 VIEW, NON [id number] 08:26:00Reason for exam:->SOBShould this be performed at the bedside?->Yes [facility] 1945 Sex: [...] MDReport Verified Date/Time: 02/18/2022 08:26:10 HEPATIC FUNCTION [id number] 05:50:59 Test Item Value Reference Range Interpretation [...] (test code = 22 U/L 6-55 347) Sticker Operator ID - JACINTO LLIPID [id number] 05:50:58 Test Item Value Reference Range Interpretation [...] Borderline 130-159 High 160-189 Very High >=190 Sticker Operator ID - JACINTO [id number] 05:50:57 Test Item Value Reference Range Interpretation Comments MAGNESIUM (BEAKER) (test code = 1.6 mg/dL 1.6-2.6 627) Sticker Operator ID - JACINTO [id number] 05:50:57 Test Item Value Reference Range Interpretation Comments PHOSPHORUS (BEAKER) (test code = 2.9 mg/dL 2.3-4.7 604) Sticker Operator ID - JACINTO LBASIC METABOLIC [id number] 05:50:56 Test Item Value Reference Range Interpretation [...] not appl icable for dialysis patien ts Sticker Operator ID - PIAYA LCBC W/PLT COUNT & AUTO [id number] 05:31:08 Test Item Value Reference Range Interpretation [...] PERCENT (BEAKER) (test code = 2801) PROTHROMBIN TIME/[id number] 05:13:59 Test Item Value Reference Range Interpretation Comments PROTIME (BEAKER) 18.1 seconds 11.9-14.2 H (test code = 759) INR (BEAKER) (test 1.61 See_Comment [Automat ed message] code = 370) The system [employer] generated this result transmitted ref erence range: <=5.90. The reference range was not used to int erpret this result as normal/abnormal . RECOMMENDED COUMADIN/WARFARIN INR THERAPY RANGESSTANDARD DOSE: 2.0 - 3.0 Includes: PROPHYLAXIS for venous thrombosis, systemic embolization; TREATMENT for venous thrombosis and/or pulmonary embolus.HIGH RISK: Target INR is 2.5-3.5 for patients with mechanical heart valves.2D Echo W/Doppler(CW/PW/Color) 2021-09-30 13:05:06Ejection FractionSLEH ECHO HEARTLAB [facility] W/Doppler(CW/PW/Color)2021-09-30 13:05:06Ejection FractionSLEH ECHO HEARTLAB [facility] Echo W/Doppler(CW/PW/Color)2021-09-30 13:05:06Ejection FractionSLEH ECHO HEARTLAB [facility] W/Doppler(CW/PW/Color) 2021-09-30 13:05:06Ejection FractionSLEH ECHO [facility]RAD[facility] CHEST, 1 VIEW, NON [id number] 07:49:00post- operative day 1Reason for exam:->s/p tavrShould this be performed at the bedside?->[facility] : 1945 Sex: MFINAL REPORT RAD, CHEST, 1 VIEW, NON DEPT INDICATION: s/p tavr COMPARISON: None FINDINGS: Portable frontal view of the chest. IMPRESSION: No focal lung consolidation, pleural effusion or pneumothorax. Cardiomediastinal silhouette is magnified by technique. Intact osseous structures. Signed: Chico Ortiz MDReport Verified Date/Time: 09/30/2021 07:49:52 POC-Glucose meter 2021-09-30 07:07:37 Test Item Value Reference Range Interpretation Comments POC-Glucose Meter (test 128 mg/dL 70-110 H : TE STED AT [facility] code = 1538) [address] [facility], 770 30: Sticker Operator/Techni edgar ID = [id number] for SALIMA OSORIOE Lab Interpretation (test Abnormal code = 87284-1) [facility] [id number] 07:07:37 Test Item Value Reference Range Interpretation Comments POC-Glucose Meter (test 128 mg/dL 70-110 H : TE STED AT [facility] code = 1538) [address] [place] [address], 770 30: Sticker Operator/Techni edgar ID = [id number] for SALIMA OSORIOE Lab Interpretation (test Abnormal code = 53176-7) [facility] [id number] 07:07:37 Test Item Value Reference Range Interpretation Comments POC-Glucose Meter (test 128 mg/dL 70-110 H : TE STED AT [facility] code = 1538) [address] [place] [address], 770 30: Sticker Operator/Techni edgar ID = [id number] for SALIMA OSORIOE Lab Interpretation (test Abnormal code = 59916-4) [facility] [id number] 07:07:37 Test Item Value Reference Range Interpretation Comments POC-GLUCOSE METER 128 mg/dL 70-110 H : TESTED A T [facility] 6720 (BEAKER) (test code = [facility], 1538) [address]: Sticker Operator/Techni edgar ID = [id number] for MYNOR OSORIO BASIC METABOLIC [id number] 05:24:00 Test Item Value Reference Range Interpretation [...] 30-44 G4 Severl y decreased 15-29 G5 Kidne y failure <15Reported eGF R is based on the CKD-EPI 2020 equation that d oes not use a race coefficientEsti mated GFR is not as accur ate as Creatinine Montserrat demetrius in predicting glom erular filtration rate . Estimated GFR is not appl icable for dialysis patien ts Sticker Operator ID - PIAYA LCBC (HEMOGRAM ONLY)2021-09-30 04:59:49 [...] WBC 0-0 (test code = 413) POCT-GLUCOSE [id number] 22:03:55 Test Item Value Reference Range Interpretation Comments POC-GLUCOSE METER 162 mg/dL 70-110 H : Notified RN/MD: (BEAKER) (test code = TESTED AT [place] [address] 1538) [facility], [address]: Sticker Operator/Techni edgar ID = [id number] for SA NCRASHAD JOVI Transesophageal [id number] 18:57:01Ejection FractionSLE ECHO HEARTLAB MKCKESSON [facility]Trans[facility] [id number] 18:57:01Ejection FractionSLE ECHO HEARTLAB MKCKESSON [facility] HospitalTrans[facility] [id number] 18:57:01Ejection FractionSLEH ECHO HEARTLAB MKCKESSON [facility] HospitalTransesophageal [id number] 18:57:01Ejection FractionSLE ECHO HEARTLAB MKCKESSON [facility] HospitalPO ACTIVATED CLOTTING [id number] 16:21:30 Test Item Value Reference Range Interpretation Comments Activated Clotting Time 144 sec : 74 -137 seconds, (test code = 3184-9) Baselin e: TESTED AT [address], 770 30: Sticker Operator/Techni edgar ID = [id number] for Go , [place] [facility] ACTIVATED CLOTTING [id number] 16:21:30 Test Item Value Reference Range Interpretation Comments Activated Clotting Time 144 sec : 74 -137 seconds, (test code = 3184-9) Baselin e: TESTED AT [address], 770 30: Sticker Operator/Techni edgar ID = [id number] for Go , [place] [facility] ACTIVATED CLOTTING [id number] 16:21:30 Test Item Value Reference Range Interpretation Comments Activated Clotting Time 144 sec : 74 -137 seconds, (test code = 3184-9) Baselin e: TESTED AT [facility] [address] [place], [address]: Sticker Operator/Techni edgar ID = [id number] for Go , [place] [facility] Diego[facility] ACTIVATED CLOTTING [id number] 16:21:30 Test Item Value Reference Range Interpretation Comments Activated Clotting Time 144 sec : 74 -137 seconds, (test code = 3184-9) Baselin e: TESTED AT [facility] 6720 [facility] [place], 7[address] 30: Sticker Operator/Techni edgar ID = [id number] for Go , [place] [facility] CenterPOCT-[id number] 16:21:30 Test Item Value Reference Range Interpretation Comments ACTIVATED CLOTTING TIME 144 sec : 74 -137 seconds, (BEAKER) (test code = Baseli ne: TESTED AT 441) [facility] 6720 [facility], 770 30: Sticker Operator/Techni edgar ID = [id number] for Go , [place] POCT-GLUCOSE [id number] 16:13:14 Test Item Value Reference Range Interpretation Comments POC-GLUCOSE METER 120 mg/dL 70-110 H : TESTED A T [place] [address] ([facility]) (test code = [facility], 1538) [address]: Sticker Operator/Techni edgar ID = [id number] for BA TTAD, LUCÍA Prepare [id number] 15:30:00 Test Item Value Reference Range Interpretation Comments CROSSMATCH (test code = COMPATIBLE 2263) Unit ABO (test code = O Pos 8717271) UNIT NUMBER (test code = [id number] 934-0) Status (test code = RETURNED FROM ISSUE 15100508) Blood Bank Product (test RED BLOOD CELLS code = 2263) PRODUCT CODE (test code = E7615Y11 933-2) [facility] [id number] 15:30:00 Test Item Value Reference Range Interpretation Comments CROSSMATCH (test code = COMPATIBLE 4) Unit ABO (test code = O Pos 7524467) UNIT NUMBER (test code = [id number] 934-0) Status (test code = RETURNED FROM ISSUE 6877914) Blood Bank Product (test RED BLOOD CELLS code = 2263) PRODUCT CODE (test code = F4003I20 933-2) [facility] [id number] 15:30:00 Test Item Value Reference Range Interpretation Comments CROSSMATCH (test code = COMPATIBLE 2264) Unit ABO (test code = O Pos 8535487) UNIT NUMBER (test code = [id number] 934-0) Status (test code = RETURNED FROM ISSUE 15100508) Blood Bank Product (test RED BLOOD CELLS code = 2263) PRODUCT CODE (test code = E5861P87 933-2) [facility] CenterPrep[facility] [id number] 15:30:00 Test Item Value Reference Range Interpretation Comments CROSSMATCH (test code = COMPATIBLE 4) Unit ABO (test code = O Pos 4960344) UNIT NUMBER (test code = [id number] 934-0) Status (test code = RETURNED FROM ISSUE 15100508) Blood Bank Product (test RED BLOOD CELLS code = 2263) PRODUCT CODE (test code = J1894B66 933-2) [facility] CenterPOCT-[id number] 15:15:20 Test Item Value Reference Range Interpretation Comments ACTIVATED CLOTTING TIME 184 sec : 74 -137 seconds, (BEAKER) (test code = Baseli ne: TESTED AT 441) [address], [facility] 30: Sticker Operator/Techni edgar ID = [id number] for QUNICY CHURCHILL [id number] 14:20:35 Test Item Value Reference Range Interpretation Comments ACTIVATED CLOTTING TIME 277 sec : 74 -137 seconds, (BEAKER) (test code = Baseli ne: TESTED AT 441) [address], [facility] 30: Sticker Operator/Techni edgar ID = [id number] for QUINCY CHURCHILL B-TYPE NATRIURETIC FACTOR (BNP)2021-09-23 16:28:06 Test Item Value Reference Range Interpretation Comments B-TYPE NATRIURETIC PEPTIDE (BEAKER) 91 pg/mL 0-100 (test code = 700) Sticker Operator ID - ADMINCOMPREHENSIVE METABOLIC [id number] 15:51:41 Test Item Value Reference Range Interpretation [...] high >=90 G2 Mildly decreased 60-89 G3a Mild ly to moderately 45-5 9 G3b Moderately to s everely 30-44 G4 Severl y decreased 15-29 G5 Kidney failure <15Reported eGF R is based on the CKD-EPI 202 equation that d oes not use a race coefficientEsti mated GFR is not as accur ate as Creatinine Montserrat demetrius in predicting glom erular filtration rate . Estimated GFR is not appl icable for dialysis patien ts Sticker Operator ID - ADMINCBC W/PLT COUNT & AUTO [id number] 15:40:59 Test Item Value Reference Range Interpretation [...] PERCENT (BEAKER) (test code = 2801) PROTHROMBIN TIME/[id number] 15:38:16 Test Item Value Reference Range Interpretation Comments PROTIME (BEAKER) 13.5 seconds 11.9-14.2 (test code = 759) INR (BEAKER) (test 1.05 See_Comment [Automat ed message] code = 370) The system [employer] generated this result transmitted ref erence range: <=5.90. The reference range was not used to int erpret this result as normal/abnormal . RECOMMENDED COUMADIN/WARFARIN INR THERAPY RANGESSTANDARD DOSE: 2.0 - 3.0 Includes: PROPHYLAXIS for venous thrombosis, systemic embolization; TREATMENT for venous thrombosis and/or pulmonary embolus.HIGH RISK: Target INR is 2.5-3.5 for patients with mechanical heart valves.COVID 19 Asymptomatic IH [id number] 12:19:00 Test Item Value Reference Range Interpretation [...] or waivedcomplexit y tests. 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 [facility]) [facility] - CT ANGIO [id number] 00:00:00 [facility] 1945 Sex: MName: BILLY FLAHERTY [facility] Jeaneth Sumner : 1945 Age/S: 76 / M [address] [place] [address] Blvd Unit #: [id number] Loc: KentonJONAH [address] Phys: Neetu Shah [facility] Acct: [id number] Dis Date: Status: REG CLI PHONE #: [phone] Exam Date: 08/24/2021 1111 FAX #: [phone] Reason: AORTIC STENOSIS EXAMS: CPT CODE: [id number] CT ANGIO CHEST [address]5037 PROCEDURE INFORMATION: Exam: CTA Heart and Coronary [...] 1 Signed Report (CONTINUED) Name: BILLY FLAHERTY [facility] : 1945 Age/S: 76 / M [address] [place] [address] Blvd Unit #: [id number] Loc: JONAH [place] [address] Phys: YahirNeetu martinez 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 Contrast material: ISOVUE 370; Contrast volume: 100 [...] 2 Signed Report (CONTINUED) Name: BILLY FLAHERTY [facility] : 1945 Age/S: 76 / M [address] [place] [address] Blvd Unit #: [id number] Loc: FungJONAH [address] Phys: Neetu Shah [facility] Acct: [id number] Dis Date: Status: REG CLI PHONE #: [phone] Exam Date: 08/24/2021 1111 FAX #: [phone] Reason: AORTIC STENOSIS EXAMS: CPT CODE: [id number] CT ANGIO CHEST 27645 (C ontinued) is infrarenal aorta demonstrate minimal atherosclerotic calcification. The distal aorta measures 16 mm. The right common iliac artery is patent with minimal atherosclerotic disease. The righthypogastric artery is patent. The right external iliac [...] with a preserved bifurcation. His CHEST: Lungs: Unremarkable.No consolidation. No masses. Pleural spaces: Unremarkable. No [...] 3 Signed Report (CONTINUED) Name: BILLY FLAHERTY [facility] : 1945 Age /S: 76 / M [address] [place] [address] Bl Unit #: [id number] Loc: [place] [address] Phys: Neetu Shah Acct: [id number] Dis Date: Status: REG CLI PHONE #: [phone] Exam Date: 08/24/2021 1111 FAX#: [phone] Reason: AORTIC STENOSIS EXAMS: CPT CODE: [id number] CT ANGIO CHEST [id number] (Continued) at 2330 Reported and signed by: Trevor Villarreal M.D CC: Neetu Shah; Yann West DO; Nawaf Dotson MD Technologist:Russell Jimenez, RT(R)(CT) CTDI: DLP: Trnscb Date/Time: 08/24/2021 (2329) [email or web address] Orig Print D/T: S: 08/24/2021 (2329) PAGE 4 Signed Report- CTA ABD PEL W [id number] 00:00:00 [facility] 1945 Sex: MName: BILLY FLAHERTY [facility] Jeaneth Sumner : 1945 Age/S: 76 / M [address] [place] [address] Blvd Unit #: [id number] Loc: J[place] [address] Phys: Neetu Shah [facility] Acct: [id number] Dis Date: Status: REG CLI PHONE #: [phone] Exam Date: 08/24/2021 1110 FAX #: [phone] Reason: AORTIC STENOSIS EXAMS: CPT CODE: [id number] CTA ABD PEL W CONT [id number] PROCEDURE INFORMATION: Exam: CTA Heart and Coronary [...] 1 Signed Report (CONTINUED) Name: BILLY FLAHERTY [facility] : 1945 Age/S: 76 / M [address] [place] [address] Blvd Unit #: [id number] Loc: [place] [address] Phys: Neetu Shah 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 Acct: [id number] Dis Date: Status: REG CLI PHONE #: [phone] Exam Date: FAX #: [phone] Reason: AORTIC STENOSIS EXAMS: CPT CODE: [id number] CTA ABD PEL W CONT 79530 (Continued) Incidental note was made of mild [...] 2 Signed Report (CONTINUED) Name: BILLY FLAHERTY [facility] : 1945 Age/S: 76 / M [address] [place] [address] Blvd Unit #: [id number] Loc: [place] [address] Phys: Neetu Shah 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 Acct: [id number] Dis Date: Status: REG CLI PHONE #: [phone] Exam Date:08/24/2021 1110 FAX #: [phone] Reason: AORTIC STENOSIS EXAMS: CPT CODE: [id number] CTA ABD PEL WCONT 65792 (Continued) is infrarenal aorta demonstrate minimal atherosclerotic [...] 3 Signed Report (CONTINUED) Name: BILLY FLAHERTY [facility] :1945 Age/S: 76 / M [address] [place] [address] Blvd Unit #: [id number] Loc: [place] [address] Phys: Neetu Shah Acct: [id number] Dis Date: Status: REG CLI PHONE #: [phone] Exam Date: 08/24/2021 1110 FAX #: [phone] Reason: AORTIC STENOSIS EXAMS: CPT CODE: [id number] CTA ABD PEL W CONT [id number] (Continued) at 2330 Reported and signed by: Trevor Villarreal M.D CC: Neetu Shah; Yannjosé West DO; Nawaf Harris Technologist:Russell Jimenez, RT(R)(CT) CTDI: DLP: Trnscb Date/Time: 08/24/2021 (2329) [email or web address] Orig Print D/T: S: 08/24/2021 (2329) PAGE 4 Signed Report- CTA HEART W CN [id number] 00:00:00 [facility] : 1945 Sex: MName: BILLY FLAHERTY [facility] [place] : 1945 Age/S: 76 / M [address] [place] [address] Blvd Unit #: [id number] Loc: [place]ung [address] Phys: Neetu Shah [facility] Acct: [id number] Dis Date: Status: REG CLI PHONE #: [phone] Exam Date: 08/24/2021 1110 FAX #: [phone] Reason: EXAMS: CPT CODE:[id number] CTA HEART W CN ART/GRAFTS 49568 PROCEDURE INFORMATION: Exam: CTA Heart and Coronary [...] 1 Signed Report (CONTINUED) Name: BILLY FLAHERTY [facility] : 1945 Age/S: 76 / M [address] [place] [address] Blvd Unit #: [id number] Loc: [place] [address] Phys: Neetu Shah 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 Left atrium appearednormal in AP dimension. 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 [...] effusion. Mild mitral valvular calcification. Aortic valvular carey cification. ABDOMEN AND PELVIS: Liver: No mass. Gallbladder [...] 3 Signed Report (CONTINUED) Name: BILLY FLAHERTY [facility] : 1945 Age/S: 76 / M [address] [place] [address] Unit #: [id number] Loc: [place] [address] Phys: Neetu Shah Acct: [id number] Dis Date: Status: REG CLI PHONE #: [phone] Exam Date: 08/24/2021 1110 FAX #: [phone]: EXAMS: CPT CODE: [id number] CTA HEART W CN ART/GRAFTS 88940 (Continued) at 2330 Reported and signed by: Trevor Villarreal M.D CC: Neetu Garcia Yannjosé West DO; Nawaf Dotson MD Technologist:Russell Jimenez, RT(R)(CT) CTDI: DLP: Trnscb Date/Time: 08/24/2021 (2329) [email or web address] Orig Print D/T: S: 08/24/2021 (2329) CLINT WINTER 4 Signed Report Notes Date/Time Note Provider Source 2021-08-25 07:56:00-00:00 [id number] [place], [place] [address] PATIENT NAME: BILLY FLAHERTY ADMIT DATE: ACCOUNT NO: [id number] ROOM NO: AGE: 76 REPORT TYPE: PULMONARY FUNCTION REPORT SEX: M ADMITTING PHYSICIAN: ATTENDING PHYSICIAN:Neetu Shah STUDY DATE: 08/24/2021 PULMONARY FUNCTION INTERPRETATION Forced vital capacity is 3.8 9 liters, which is 68% of predicted and FEV1 is 2.44 liters, which is 58% of predicted. There was no significant response to bronchodila tors. The ratio of FEV1 to FVC is 63%. Total lung capacity is 82% of predicted and resi dual volume 83% of predicted. Diffusion capacity for carbon monoxide i s 87% of predicted and goes up to 121% when accounting for alveolar volume. This is a mixed restrictive and obstructive defect without significant response to bronchodilators, but with preserved DLCO. The combined restrictive and obstructive defect is probably moderate. Dictated By: Antwan Morgan MD WT: PFT:CHANDLER/LOUISA/VIVIAN Conf#: [id number]/DID#: [id number] Authenticated by Antwan Morgan MD On 022 01:45:31 PM at 0145 PATIENT NAME: BILLY FLAHERTY ACCOUNT #: [id number]
[2022-10-27 23:15] LABS: Protime INR 1.62
[2022-10-27 23:17] LABS: Hematocrit 26.1 % (39.6-49.0); Lymphocytes % 11.6 % (15.3-44.8); MCV 83.6 fL (80-100); MPV 8.9 fL (7.6-11.3); Platelets 118 thou/uL (152-406); RBC Red Blood Cell Count 3.13 M/uL (4.33-5.43)
[2022-10-27 23:35] LABS: Albumin 3.4 g/dL (3.4-5.0); Bilirubin Direct 0.3 mg/dL (0-0.2); Bilirubin Indirect, Calculated 0.8 mg/dL (0.2-0.8); Bilirubin Total 1.1 mg/dL (0.2-1.0); Magnesium 2.3 mg/dL (1.6-2.4); Protein, Total 8.5 g/dL (6.4-8.2); Troponin High Sensitivity 11.4 pg/mL (<58.9)
--- NOTE | 2022-10-28 00:01 | EDPHYS ---
Physician Documentation [facility] Name: Dwight Flaherty Age: 77 yrs Sex: Male : 1945 Arrival Date: 10/27/2022 Time: 21:55 Bed 13 Private MD: [facility] ED Physician Richie Mckeon HPI: 10/28 00:35 This 77 yrs old Male presents to ER via Wheelchair with complaints of Shortness Of sb4 Breath. 00:35 The patient has shortness of breath at rest, with light activity, while talking. Onset: sb4 The symptoms/episode began/occurred gradually. Duration: The symptoms are continuous. The patient's shortness of breath is aggravated by exertion. patient states he has had increasing shortness of breath and lower extremity swelling over the last few weeks. 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 - Social history:: Smoking status: Patient denies any tobacco usage or history of. ROS: 10/28 00:35 Constitutional: Negative for fever, chills, and weight loss. sb4 Cardiovascular: Positive for edema, Negative for chest pain. Respiratory: Positive for dyspnea on exertion, orthopnea, shortness of breath. All other systems are negative. Exam: 00:38 Constitutional: This is a well developed, well nourished patient who is awake, alert, sb4 and in no acute distress. Head/Face: Normocephalic, atraumatic. Eyes: Extra-ocular motions intact. Periorbital areas with no swelling, redness, or edema. ENT: Mucous membranes moist. Abdomen/GI: Soft, non-tender, no distension. Back: No spinal tenderness. No costovertebral tenderness. Full range of motion. Skin: Warm, dry with normal turgor. Normal color with no rashes, no lesions, and no evidence of cellulitis. MS/ Extremity: Pulses equal, no cyanosis. Neurovascular intact. Full, normal range of motion. Neuro: Awake and alert, GCS 15, oriented to person, place, time, and situation. Cranial nerves II-XII grossly intact. Motor strength 5/5 in all extremities. Sensory grossly intact. Cerebellar exam normal. Normal gait. 00:38 Cardiovascular: Rate: normal, Rhythm: regular, Pulses: no pulse deficits are appreciated, Edema: 3+ edema to level of left midcalf, left ankle, right midcalf and right ankle. 00:38 Respiratory: mild respiratory distress is noted, Respirations: labored breathing, that is mild, asymmetrical chest movement, is not seen, accessory muscle usage, is absent, grunting, is not present, nasal flaring, is not appreciated, intercostal retractions, are absent, shallow respirations, are not present, Breath sounds: rhonchi, are heard diffusely. Vital Signs: 10/27 21:57 Pulse 81; Resp 21; Temp 98.2; Pulse Ox 99% ; Weight 166.01 kg; ap3 22:00 BP 127 / 63; ap3 22:00 BP 132 / 68; Pulse 82; Resp 19 S; Pulse Ox 96% on 2 lpm NC; ha1 23:00 BP 133 / 78; Pulse 81; Resp 18 S; Pulse Ox 95% on 2 lpm NC; ha1 10/28 00:00 BP 133 / 78; Pulse 81; Resp 17 S; Pulse Ox 93% on 2 lpm NC; ha1 MDM: 10/27 21:58 Patient medically screened. sb4 10/28 00:43 Differential diagnosis: Anemia CHF exacerbation, Chronic Obstructive Pulmonary Disease sb4 pneumonia, pulmonary edema. Antibiotic administration: Not indicated, the patient does not have an appreciated infiltrate. Data interpreted: Pulse oximetry: on 2L(s) per nasal canula, is 95 %. Interpretation: acceptable. The patient's Wells Deep Vein Thrombosis Score was calculated as follows: No Risks (0 Pts) Total Score: 0-2 Pts- Low Risk. The patient's pulmonary embolism risk score was calculated as follows: No Risks (0 Pts) Total Score: 0-2 points. This patient was found to be at low risk for a pulmonary embolism by using the Well's assessment criteria. Data reviewed: vital signs, nurses notes, lab test result(s), radiologic studies, and as a result, I will admit patient. Consideration of Admission/Observation Patient was admitted/placed on observation. Management of patient was discussed with the following: Hospitalist: LUIS Erickson. Care significantly affected by the following chronic conditions: Diabetes, Hypertension, Congestive Heart Failure, Chronic Kidney Disease. Counseling: I had a detailed discussion with the patient and/or guardian regarding the historical points, exam findings, and any diagnostic results supporting the discharge/admit diagnosis, lab results, radiology results, the need for further work-up and treatment in the hospital. 10/27 22:00 Order name: BMP; Complete Time: 23:36 4 10/27 22:00 Order name: Blood Culture Adult (2) [facility] 10/27 22:00 Order name: CBC with Diff; Complete Time: 23:24 4 10/27 22:00 Order name: Hepatic Function; Complete Time: 23:36 4 10/27 22:00 Order name: Lipase; Complete Time: 23:36 [facility] 10/27 22:00 Order name: Magnesium; Complete Time: 23:36 4 10/27 22:00 Order name: NT PRO-BNP; Complete Time: 23:36 4 10/27 22:00 Order name: Troponin HS; Complete Time: 23:36 4 10/27 22:17 Order name: PT-INR; Complete Time: 23:19 4 10/27 22:17 Order name: Ptt, Activated; Complete Time: 23:19 [facility] 10/27 22:17 Order name: Lactate w/ 2H reflex if indic.; Complete Time: 23:35 4 10/27 22:00 Order name: XRAY CXR (1 view) [facility] 10/27 22:00 Order name: EKG; Complete Time: 22:01 4 10/27 22:00 Order name: Cardiac monitoring; Complete Time: 22:22 [facility] 10/27 22:00 Order name: EKG - Nurse/Tech; Complete Time: 22:26 4 10/27 22:00 Order name: IV Saline Lock; Complete Time: 22:52 4 10/27 22:00 Order name: Labs collected and sent; Complete Time: 22:52 [facility] 10/27 22:00 Order name: O2 Per Protocol; Complete Time: 22:22 4 10/27 22:00 Order name: O2 Sat Monitoring; Complete Time: 22:22 sb4 EC/31 23:07 Rate is 81 beats/min. Rhythm is regular, Sinus Rhythm with Unifocal PVCs, 1st degree sb4 heart block. OK interval is prolonged at 264 msec. QRS interval is normal at 112 msec. QT interval is normal at [address] changes noted. Clinical impression: Abnormal EKG without significant change. Interpreted by me. Reviewed by me. Administered Medications: No medications were administered Disposition: 10/28 01:04 Co-signature as Attending Physician, Richie Mckeon MD I agree with the assessment sp4 and plan of care. I reviewed the patient's care provided by the Advanced Practice Provider and agree with the diagnosis and treatment plan. Disposition Summary: 10/28/22 00:01 Hospitalization Ordered Hospitalization Status: Inpatient Admission sb4 Provider: Abhay Sharma Location: Telemetry/MedSurg (Inpatient) sb4 Condition: Fair sb4 Problem: new sb4 Symptoms: are unchanged sb4 Bed/Room Type: Standard sb4 Room Assignment: 201(10/28/22 01:04) cg Diagnosis - Acute kidney failure, unspecified sb4 - Acute on chronic diastolic (congestive) heart failure sb4 - Acute respiratory failure with hypercapnia sb4 - Acute respiratory failure with hypoxia sb4 Forms: - Medication Reconciliation Form sb4 - SBAR form sb4 - Leadership Thank You Letter sb4 Signatures: Dispatcher [employer] Dre Benitez, RENETTAC GENETIC ENGINEER-Tiara1 Sapphire Canales RN RN cg Prokisch, Amanda, RN RN trip3 Hollie Conde, PAJulyC ARNULFO sb4 Richie Mckeon MD MD sp4 Corrections: (The following items were deleted from the chart) 01:04 00:01 sb4 cg
--- NOTE | 2022-10-28 00:01 | ER ---
Nurse's Notes [facility] Name: Dwight Flaherty Age: 77 yrs Sex: Male : 1945 Arrival Date: 10/27/2022 Time: 21:55 Bed 13 Private MD: Yann Diaz Diagnosis: Acute kidney failure, unspecified;Acute on chronic diastolic (congestive) heart failure;Acute respiratory failure with hypercapnia;Acute respiratory failure with hypoxia Presentation: 10/27 21:57 Chief complaint: Patient states: he has been feeling short of breath for approx 2 ap3 weeks. patient states he started wearing his wifes oxygen because his was 85% at home. Coronavirus screen: Client presents with at least one sign or symptom that may indicate coronavirus-19. Ebola Screen: No symptoms or risks identified at this time. Risk Assessment: Do you want to hurt yourself or someone else? Patient reports no desire to harm self or others. Onset of symptoms was October 27, 2022. 21:57 Acuity: GENO 3 ap3 21:57 Method Of Arrival: Wheelchair ap3 22:00 Initial Sepsis Screen: Does the patient meet any 2 criteria? No. Patient's initial ha1 sepsis screen is negative. Does the patient have a suspected source of infection? No. Patient's initial sepsis screen is negative. Triage Assessment: 21:59 General: Appears uncomfortable, Behavior is calm, cooperative, appropriate for age. ap3 Pain: Denies pain. Neuro: Level of Consciousness is awake, alert, obeys commands, Oriented to person, place, time, situation. Cardiovascular: Patient's skin is warm and dry. Respiratory: Reports shortness of breath Airway is patent Respiratory effort is even, labored, Respiratory pattern is regular, symmetrical, Onset: The symptoms/episode began/occurred gradually, the patient has mild shortness of breath. 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 - Social history:: Smoking status: Patient denies any tobacco usage or history of. Screenin:59 Abuse screen: Denies threats or abuse. Nutritional screening: No deficits noted. ap3 Tuberculosis screening: No symptoms or risk factors identified. Assessment: 22:00 General: Appears uncomfortable, Behavior is calm, cooperative. Pain: Denies pain. ha1 Neuro: Level of Consciousness is awake, alert, obeys commands, Oriented to person, place, time, situation. Cardiovascular: Reports shortness of breath, Heart tones S1 S2 present Patient's skin is warm and dry. Rhythm is sinus rhythm with 1st degree heart block. Respiratory: Airway is patent Respiratory effort is even, unlabored, Respiratory pattern is regular, symmetrical, Breath sounds are clear bilaterally. Musculoskeletal: Circulation, motion, and sensation intact. 23:00 Reassessment: Patient and/or family updated on plan of care and expected duration. Pain ha1 level reassessed. Patient is alert, oriented x 3, equal unlabored respirations, skin warm/dry/pink. 10/28 00:00 Reassessment: Patient and/or family updated on plan of care and expected duration. Pain ha1 level reassessed. Patient is alert, oriented x 3, equal unlabored respirations, skin warm/dry/pink. 01:12 Reassessment: attempted to give report. ha1 Vital Signs: 10/27 21:57 Pulse 81; Resp 21; Temp 98.2; Pulse Ox 99% ; Weight 166.01 kg; ap3 22:00 BP 127 / 63; ap3 22:00 BP 132 / 68; Pulse 82; Resp 19 S; Pulse Ox 96% on 2 lpm NC; ha1 23:00 BP 133 / 78; Pulse 81; Resp 18 S; Pulse Ox 95% on 2 lpm NC; ha1 10/28 00:00 BP 133 / 78; Pulse 81; Resp 17 S; Pulse Ox 93% on 2 lpm NC; ha1 ED Course: 10/27 21:56 Patient arrived in ED. mr 21:56 Yann Diaz DO is Private Physician. mr 21:58 Hollie Conde PA-C [facility]. sb4 21:58 Richie Mckeon MD is Attending Physician. sb4 21:58 Triage completed. ap3 21:59 Arm band placed on right wrist. ap3 22:00 Patient has correct armband on for positive identification. Placed in gown. Bed in low ha1 position. Call light in reach. Side rails up X 1. Adult w/ patient. 22:22 Margoth Yun, RN is Primary Nurse. ha1 22:33 XRAY CXR (1 view) In Process Unspecified. EDMS 22:40 Inserted saline lock: 20 gauge in right antecubital area, using aseptic technique. oe Blood collected. 22:52 Lactate w/ 2H reflex if indic. Sent. ha1 22:52 Ptt, Activated Sent. ha1 22:52 PT-INR Sent. ha1 22:52 Blood Culture Adult (2) Sent. ha1 22:52 CBC with Diff Sent. ha1 22:52 Hepatic Function Sent. ha1 22:52 Lipase Sent. ha1 22:52 Magnesium Sent. ha1 22:52 NT PRO-BNP Sent. ha1 22:52 Troponin HS Sent. ha1 23:11 Lactate w/ 2H reflex if indic. Sent. oe 23:11 Ptt, Activated Sent. oe 23:11 PT-INR Sent. oe 23:12 BMP Sent. oe 23:12 Blood Culture Adult (2) Sent. oe 23:12 CBC with Diff Sent. oe 23:12 Hepatic Function Sent. oe 23:12 Lipase Sent. oe 23:12 Magnesium Sent. oe 23:12 NT PRO-BNP Sent. oe 23:12 Troponin HS Sent. oe 23:59 Abhay Sharma MD is Hospitalizing Provider. sb4 10/28 01:22 No provider procedures requiring assistance completed. Patient admitted, IV remains in ha1 place. 01:23 Provided Education on: need for admit . ha1 Administered Medications: No medications were administered Medication: 10/27 21:59 VIS not applicable for this client. ap3 Outcome: 10/28 00:01 Decision to Hospitalize by Provider. sb4 01:22 Admitted to Med/surg accompanied by tech, via wheelchair, room 201, with oxygen, with ha1 chart, Report called to PUMA Stark 01:22 Condition: stable 01:22 Discharge instructions given to patient, Instructed on the need for admit, Demonstrated understanding of instructions. 01:30 Patient left the ED. ha1 Signatures: Dispatcher [employer] ED[facility] Lubna Moffett, Jean oe Heaven Morales RN RN ap3 Margoth Yun RN RN ha1 Hollie Conde PA-C PA-C sb4 Corrections: (The following items were deleted from the chart) 01:44 01:43 Patient left the ED. ha1 ha1
--- NOTE | 2022-10-28 00:39 | P.HP ---
Certification for Inpatient Patient admitted to: Inpatient With expected LOS: >2 Midnights Patient will require the following post-hospital care: None Practitioner: I am a practitioner with admitting privileges, knowledge of patient current condition, hospital course, and medical plan of care. Services: Services provided to patient in accordance with Admission requirements found in Title 42 Section 412.3 of the Code of Federal Regulations <Dre Poon - Last Filed: 10/28/22 00:35> Patient History Date of Service: 10/28/22 Reason for admission: TORRES, CHF History of Present Illness: 77-year-old male with history of TAVR, chronic diastolic congestive heart failure, insulin-dependent diabetes, hypertension, hyperlipidemia, CKD presents emergency department with chief complaint of shortness of breath. He reports he has been short of breath for a while now but he checked his oxygen level this evening after being in the shower and found it to be around 85% on room air, he is using some of his 's oxygen at home therefore he came to the hospital for evaluation. He reports he was recently seen by cardiology and nephrology, nephrology had increased his diuretic. At home he is currently on bumetanide 2 mg twice daily, metolazone 2.5 mg every other day in addition to his other home medications. He reports he has lost a little less than 30 pounds over the course of the last month or so. Last year he struggled with persistent bacteremia of unknown origin, he reports 2 hospitalizations at [facility] with extensive testing including [place], PET scan, "many other test" which never identified the source of infection he currently takes amoxicillin 500 mg twice daily which is planned for the rest of his life. He was evaluated today in the emergency department his labs show hemoglobin 9.0 hematocrit 26.1 platelet count 118 chloride 97 bicarb 36 BUN 57 creatinine 3.3 GFR 19 glucose 109 lactic acid 2.0 BNP 1208, baseline creatinine appears to be around 2. Patient need to be admitted for TORRES, CHF. - Past Medical/Surgical History Diabetic: Yes -: Psoriasis -: Chronic kidney disease, Stage 3, Nephrology-Dr. Holt -: HTN -: Osteoarthritis -: Lymphedema -: Insulin dependent type 2 diabetes -: Gout -: CHFdiastolic -: Obstructive sleep apnea -: Hyperlipidemia -: GERD -: History of gastric ulcer -: Bilateral Knee Replacements -: Cholecystectomy -: both hands surgery + right fingers -: punji stick removal -: TAVR Psychosocial/ Personal History: . He has 2 stepchildren, 1 child, and another adopted. He is retired. - Family History Father -: Heart disease - Social History Alcohol use: No CD- Drugs: No Caffeine use: Yes Place of Residence: Home <Dre Poon - Last Filed: 10/28/22 00:35> Date of Service: 10/28/22 <Abhay Sharma - Last Filed: 10/28/22 13:41> Allergies No Known Allergies Allergy (Verified 10/20/22 10:08) Home Medications: Allopurinol 300 mg PO DAILY 04/18/19 Amlodipine Besylate 10 mg PO DAILY 04/18/19 Apremilast [Otezla] 30 mg PO BID 04/18/19 Gabapentin 600 mg PO BEDTIME 04/18/19 Glipizide [Glipizide ER] 5 mg PO BID 04/18/19 Hydralazine HCl [Apresoline] 100 mg PO Q8H 04/18/19 Insulin Detemir [Levemir Flextouch] 130 units SQ DAILY 04/18/19 Liraglutide [Victoza 2-Malvin] 1.8 units SQ DAILY 04/18/19 Omeprazole [Prilosec] 40 mg PO DAILY 04/18/19 Rosuvastatin [Crestor*] 10 mg PO DAILY 04/18/19 Gabapentin 300 mg PO DAILY 04/19/19 Baclofen 10 mg PO BEDTIME 01/11/22 Calcium` 600 mg PO DAILY 01/11/22 Magnesium Oxide [Magnesium] 250 mg PO BID 01/11/22 [place]-3/Dha/Epa/Fish Oil [Fish Oil 1,000 mg Softgel] 1 each PO BID 01/11/22 Vit D 2.25 mg PO SEECOM 01/11/22 Apixaban [Eliquis] 5 mg PO BID 04/08/22 Bumetanide [Bumex*] 1 mg PO BID 04/08/22 Carvedilol [Coreg] 25 mg PO BID 04/08/22 Multivit-Min/FA/Lycopen/Lutein [Centrum Silver Tablet] 1 each PO DAILY 04/08/22 Amoxicillin 500 mg PO BID 10/28/22 Losartan Potassium 25 mg PO DAILY 10/28/22 Silver Sulfadiazine Crm [Silvadene*] 1 nikia SL BID 10/28/22 Review of Systems 10-point ROS is otherwise unremarkable Respiratory: Shortness of Breath, SOB with Excertion Cardiovascular: Edema <Dre Poon - Last Filed: 10/28/22 00:35> Physical Examination - Physical Exam General: Alert, In no apparent distress, Oriented x3, Obese HEENT: Atraumatic, PERRLA, Mucous membr. moist/pink, EOMI, Sclerae nonicteric Neck: Supple, 2+ carotid pulse no bruit, No LAD, Without JVD or thyroid abnormality Respiratory: Clear to auscultation bilaterally, Normal air movement Cardiovascular: Regular rate/rhythm, Normal S1 S2, Edema Capillary refill: <2 Seconds Gastrointestinal: Normal bowel sounds, No tenderness Musculoskeletal: No tenderness Integumentary: No rashes Neurological: Normal speech, Normal strength at 5/5 x4 extr, Normal tone, Normal affect - Studies Laboratory Data (last 24 hrs) 10/27/22 10/27/22 10/27/22 22:35 22:35 22:35 WBC 8.20 Hgb 9.0 L Hct 26.1 L Plt Count 118 L PT 17.8 H INR 1.62 APTT 39.9 H Sodium 137 Potassium 4.0 BUN 57 H Creatinine 3.30 H Glucose 109 H Magnesium 2.3 Total Bilirubin 1.1 H AST 19 ALT 19 Alkaline Phosphatase 93 Lipase 67 <Dre Poon - Last Filed: 10/28/22 00:35> - Studies Laboratory Data (last 24 hrs) 10/27/22 10/27/22 10/27/22 22:35 22:35 22:35 WBC 8.20 Hgb 9.0 L Hct 26.1 L Plt Count 118 L PT 17.8 H INR 1.62 APTT 39.9 H Sodium 137 Potassium 4.0 BUN 57 H Creatinine 3.30 H Glucose 109 H Magnesium 2.3 Total Bilirubin 1.1 H AST 19 ALT 19 Alkaline Phosphatase 93 Lipase 67 <Abhay Sharma - Last Filed: 10/28/22 13:41> Assessment and Plan - Plan Assessment: TORRES on CKD 3 Acute hypoxic respiratory failure secondary to acute on chronic diastolic congestive heart failure Diabetes mellitus type 2insulin-dependent Hypertension Hyperlipidemia History of TAVR/paroxysmal arrhythmia on chronic anticoagulation Anemia of chronic disease History of bacteremia unknown source on chronic antibioticsamoxicillin Plan: TORRES on CKD 3 Recently had diuretics increased, labs from 10 days ago show creatinine near baseline around 2. Reports significant weight loss over the course of the last 1 month or so. We will trial gentle IV fluids overnight, nephrology consult in place as well as cardiology consult given heart failure component. Acute hypoxic respiratory failure secondary to acute on chronic diastolic congestive heart failure Medications continued, no gross pulmonary edema. Daily urinary saturations, cardiology consult. Appreciate further input from nephrology/cardiology with need for diuresis versus renal function/volume overload. Diabetes mellitus type 2insulin-dependent ACHS Accu-Chek, sliding scale insulin, continue long-acting insulin. Hypertension Hyperlipidemia Home medications continued, hold losartan for now given TORRES. History of TAVR/paroxysmal arrhythmia on chronic anticoagulation Eliquis continued Anemia of chronic disease Stable, monitor daily CBC. History of bacteremia unknown source on chronic antibioticsamoxicillin Amoxicillin 500 mg p.o. twice daily continue. DVT PPX: Continue Eliquis Code status: Full Discharge Plan: Home Plan to discharge in: Greater than 2 days - Advance Directives Does patient have a Living Will: No Does patient have a Durable POA for Healthcare: No - Code Status/Comfort Care Code Status Assessed: Yes (Full code) Critical Care: No Time Spent Managing Pts Care (In Minutes): 70 <Dre Poon - Last Filed: 10/28/22 00:35> Physician Review: Patient Assessed, Agree with Above Assessment and Plan <Abhay Sharma - Last Filed: 10/28/22 13:41>
[2022-10-28 01:44] VITALS: BMI 40.4
[2022-10-28] MEDS ORDERED: ONDANSETRON 4 MG/2 ML VIAL IV PRN (01:57)
[2022-10-28] MEDS ORDERED: NA CHLORIDE 0.9% 1,000 ML IV SCH (01:57)
[2022-10-28 04:12] LABS: Absolute Lymphocytes (CBC) 0.9 K/uL (0.7-4.9); Hematocrit 25.9 % (39.6-49.0); Lymphocytes % 10.8 % (15.3-44.8); MCV 84.3 fL (80-100); Platelets 109 thou/uL (152-406); RBC Red Blood Cell Count 3.07 M/uL (4.33-5.43)
[2022-10-28 04:16] LABS: Specific Gravity 1.013 (1.005-1.030); Urine Bacteria None Seen /HPF (<20); Urine Bilirubin NEGATIVE (Negative); Urine Blood Negative (Negative); Urine Clarity Clear (Clear); Urine Color Light-Yellow (Yellow); Urine Glucose NEGATIVE (Negative); Urine Mucus Slight /HPF (None Seen); Urine Protein TRACE (Negative); Urine RBC None Seen /HPF (None Seen); Urine Urobilinogen Normal (Normal); Urine pH 7.5 (5.0-7.0)
[2022-10-28 04:35] LABS: Potassium 3.6 mEq/L (3.5-5.1); Troponin High Sensitivity 10.9 pg/mL (<58.9)
[2022-10-28] MEDS: carvediloL 25 MG TAB PO SCH ×2 (06:06→16:42)
[2022-10-28] MEDS: INSULIN -REGULAR HUMAN 50 UNIT/0.5 ML ML SQ SCH ×4 (07:30→20:49)
--- NOTE | 2022-10-28 07:45 | RAD REPORT ---
EXAM DESCRIPTION: US - Renal Ultrasound-Complete - 10/28/2022 3:19 am CLINICAL HISTORY: [place] COMPARISON: Abdomen Pelvis Wo Contrast dated 01/04/2016 TECHNIQUE: Sonographic grayscale and color flow images of the kidneys and bladder were obtained. FINDINGS: Decreased penetration limits evaluation. Both kidneys are normal in size, shape and echotexture. The right kidney measures 13.8 cm in length. No hydronephrosis, focal mass or perinephric fluid. Mild pelviectasis. The left kidney measures 14.5 cm in length. No hydronephrosis, focal mass or perinephric fluid. No echogenic calculi. The urinary bladder is incompletely distended without gross abnormality seen. IMPRESSION: Unremarkable renal ultrasound. No evidence of hydronephrosis or echogenic calculi.
[2022-10-28] MEDS: HYDRALAZINE HCL 25 MG TABLET PO SCH ×3 (09:00→20:13)
[2022-10-28] MEDS: AMLODIPINE 10 MG TAB PO SCH (09:03)
[2022-10-28] MEDS: AMOXICILLIN TRIHYDR 250 MG CAP PO SCH ×2 (09:03→20:12)
[2022-10-28] MEDS: allopurinoL 300 MG TAB PO SCH (09:03)
[2022-10-28] MEDS: APIXABAN 5 MG TABLET PO SCH ×2 (09:05→20:13)
[2022-10-28] MEDS: INSULIN GLARGINE 100 UNIT/ML SQ SCH ×2 (09:05→20:49)
--- NOTE | 2022-10-28 14:00 | P.CNS ---
Date of Consult: 10/28/22 Reason for Consult: Renal failure Requesting Physician: Abhay Sharma Chief Complaint: TORRES, CHF History of Present Illness: 77M w/ PMHx of CKD3 presumed to be 2/2 Htn/DM, baseline GFR 39-49 ml/min as of July 2022, Htn, HLD, DM2, s/p TAVR, chronic diastolic heart failure, & hx of bacteremia of unknown source on chronic abx, who p/w SOB, admited for acute respi failure 2/2 acute decompensated HF. BNP elevated. Referred to Nephrology for TORRES. SCr 3.3 on adm, at 3.0 today. He is receiving IVF. Allergies No Known Allergies Allergy (Verified 10/20/22 10:08) Home Medications: Allopurinol 300 mg PO DAILY 04/18/19 Amlodipine Besylate 10 mg PO DAILY 04/18/19 Apremilast [Otezla] 30 mg PO BID 04/18/19 Gabapentin 600 mg PO BEDTIME 04/18/19 Glipizide [Glipizide ER] 5 mg PO BID 04/18/19 Hydralazine HCl [Apresoline] 100 mg PO Q8H 04/18/19 Insulin Detemir [Levemir Flextouch] 130 units SQ DAILY 04/18/19 Liraglutide [Victoza 2-Malvin] 1.8 units SQ DAILY 04/18/19 Omeprazole [Prilosec] 40 mg PO DAILY 04/18/19 Rosuvastatin [Crestor*] 10 mg PO DAILY 04/18/19 Gabapentin 300 mg PO DAILY 04/19/19 Baclofen 10 mg PO BEDTIME 01/11/22 Calcium` 600 mg PO DAILY 01/11/22 Magnesium Oxide [Magnesium] 250 mg PO BID 01/11/22 [place]-3/Dha/Epa/Fish Oil [Fish Oil 1,000 mg Softgel] 1 each PO BID 01/11/22 Vit D 2.25 mg PO SEECOM 01/11/22 Apixaban [Eliquis] 5 mg PO BID 04/08/22 Bumetanide [Bumex*] 1 mg PO BID 04/08/22 Carvedilol [Coreg] 25 mg PO BID 04/08/22 Multivit-Min/FA/Lycopen/Lutein [Centrum Silver Tablet] 1 each PO DAILY 04/08/22 Amoxicillin 500 mg PO BID 10/28/22 Losartan Potassium 25 mg PO DAILY 10/28/22 Silver Sulfadiazine Crm [Silvadene*] 1 nikia SL BID 10/28/22 - Past Medical/Surgical History Diabetic: Yes -: Psoriasis -: Chronic kidney disease, Stage 3, Nephrology-Dr. Holt -: HTN -: Osteoarthritis -: Lymphedema -: Insulin dependent type 2 diabetes -: Gout -: CHFdiastolic -: Obstructive sleep apnea -: Hyperlipidemia -: GERD -: History of gastric ulcer -: Bilateral Knee Replacements -: Cholecystectomy -: both hands surgery + right fingers -: punji stick removal -: TAVR Psychosocial/ Personal History: . He has 2 stepchildren, 1 child, and another adopted. He is retired. - Family History Father Medical History: Heart disease Mother Medical History: Cancer - Social History Smoking Status: Former smoker Alcohol use: No CD- Drugs: No Caffeine use: No Place of Residence: Home Review of Systems General: Weakness Eyes: Unremarkable ENT: Unremarkable Respiratory: Shortness of Breath Cardiovascular: Unremarkable Gastrointestinal: Unremarkable Genitourinary: Unremarkable Musculoskeletal: Unremarkable Integumentary: Unremarkable Neurological: Unremarkable Lymphatics: Unremarkable Physical Examination Temp Pulse Resp BP Pulse Ox 98.5 F 76 18 120/59 L 94 10/28/22 12:00 10/28/22 12:00 10/28/22 12:00 10/28/22 12:00 10/28/22 12:00 General: Other (appears as his stated age) HEENT: Atraumatic, Normocephalic Neck: Supple Respiratory: Other (symmetric chest expansion) Cardiovascular: No rubs, No murmurs Gastrointestinal: Soft and benign, No guarding Musculoskeletal: No clubbing Integumentary: No warmth Neurological: Normal tone Urinary: Other (No bladder distention) External genitalia: Deferred Rectal: Deferred Laboratory Data (last 24 hrs) 10/27/22 10/27/22 10/27/22 22:35 22:35 22:35 WBC 8.20 Hgb 9.0 L Hct 26.1 L Plt Count 118 L PT 17.8 H INR 1.62 APTT 39.9 H Sodium 137 Potassium 4.0 BUN 57 H Creatinine 3.30 H Glucose 109 H Magnesium 2.3 Total Bilirubin 1.1 H AST 19 ALT 19 Alkaline Phosphatase 93 Lipase 67 Conclusions/Impression: # TORRES 2/2 prerenal state SCr 3.3 on adm, improved to 3.0 today Urinalysis showed trace proteinuria but no hematuria no pyuria Urine chemistry non-prerenal No overt proteinuria on random UPCR CPK wnl, no rhabdo Renal ultrasound unremarkable [place] po fluid intake IVF prn # CKD3 presumed to be 2/2 Htn/DM Baseline SCr 1.5-1.8 (GFR 39-49 ml/min) as of July 2022 Monitor renal panel # Acute respi failure Hx of chronic diastolic HF, s/p TAVR Low Na diet < 2g/d On eliquis Per other services # Htn Cont current med regimen # DM2 Mngt per primary team # Hx of bacteremia, unknown source, on chronic antibiotics On amoxicillin Per other services
[2022-10-28 15:18] LABS: Potassium 3.8 mEq/L (3.5-5.1)
--- NOTE | 2022-10-28 15:21 | EKG ---
Test Date: 2022-10-27 Test Time: 22:21:18 Morale Officer: DOM MEASUREMENT RESULTS: Intervals: Rate: 81 MO: 264 QRSD: 112 QT: 418 QTc: 485 [place]: P: 68 MO: 264 QRS: -54 T: 53 INTERPRETIVE STATEMENTS: Sinus rhythm with 1st degree AV block with frequent premature ventricular complexes Left anterior fascicular block Possible Anterior infarct, age undetermined Abnormal ECG Compared to ECG 04/08/2022 00:31:09 Ventricular premature complex(es) now present Sinus arrhythmia no longer present Myocardial infarct finding still present Electronically Signed On 10-28-22 15:20:46 CDT by Nawaf Dotson
[2022-10-28 15:39] LABS: UR PROTEIN 36.6 mg/dL (<11.9); Urine Protein/Creatinine Ratio 0.28 ratio (<0.15)
--- NOTE | 2022-10-28 16:19 | RAD REPORT ---
EXAM DESCRIPTION: RAD - Chest Single View - 10/27/2022 10:31 pm CLINICAL HISTORY: 77 years Male, SOB COMPARISON: 04/18/2019 TECHNIQUE: Single portable x-ray view of the chest performed on 10/27/2022 at 10:28 PM FINDINGS: The lungs are well-expanded. There is very mild prominence of the interstitial markings bi laterally which is nonspecific but may be related to interstitial edema and/or interstitial pneumonit is. There is no evidence of a pneumothorax. The lateral costophrenic sulci are grossly clear. The cardiac silhouette is stable and is mildly prominent. The mediastinal contours are normal. No acute osseous abnormality is identified. No acute soft tissue abnormalities are seen. Lines and tubes: None. Free air: None IMPRESSION: Mild prominence of the interstitial markings bilaterally which is nonspecific but may be related to interstitial edema and/or interstitial pneumonitis. Electronically signed by: Kristie Abebe DO 10/27/2022 11:53 PM CDT Due to temporary technical issues with the PACS/Fluency reporting system, reports are being signed by the in house radiologists without review as a courtesy to insure prompt reporting. The interpreting radiologist is fully responsible for the content of the report.
[2022-10-28] MEDS: FUROSEMIDE 40 MG/4 ML VIAL IV SCH (16:41)
[2022-10-28] MEDS: ROSUVASTATIN 10 MG TAB PO SCH (20:13)
[2022-10-29 03:43] LABS: Absolute Lymphocytes (CBC) 0.8 K/uL (0.7-4.9); Hematocrit 23.9 % (39.6-49.0); Lymphocytes % 10.6 % (15.3-44.8); MCV 84.1 fL (80-100); MPV 9.3 fL (7.6-11.3); Platelets 102 thou/uL (152-406); RBC Red Blood Cell Count 2.84 M/uL (4.33-5.43)
[2022-10-29 04:34] LABS: Potassium 3.4 mEq/L (3.5-5.1)
[2022-10-29] MEDS: carvediloL 25 MG TAB PO SCH ×2 (05:59→17:12)
[2022-10-29] MEDS: INSULIN -REGULAR HUMAN 50 UNIT/0.5 ML ML SQ SCH ×4 (07:30→20:32)
[2022-10-29] MEDS: APIXABAN 5 MG TABLET PO SCH ×2 (09:29→20:31)
[2022-10-29] MEDS: allopurinoL 300 MG TAB PO SCH (09:29)
[2022-10-29] MEDS: AMOXICILLIN TRIHYDR 250 MG CAP PO SCH ×2 (09:29→20:31)
[2022-10-29] MEDS: HYDRALAZINE HCL 25 MG TABLET PO SCH ×3 (09:29→20:31)
[2022-10-29] MEDS: AMLODIPINE 10 MG TAB PO SCH (09:29)
[2022-10-29] MEDS: INSULIN GLARGINE 100 UNIT/ML SQ SCH ×2 (09:30→20:32)
[2022-10-29] MEDS: FUROSEMIDE 40 MG/4 ML VIAL IV SCH ×2 (09:30→17:11)
--- NOTE | 2022-10-29 12:45 | P.PN ---
Subjective Date of Service: 10/29/22 Chief Complaint: TORRES, CHF No acute events overnight. He has been making good urine output. He reports that his breathing is improving; however, he continues to experience orthopnea. He denies any chest pain or palpitations. Review of Systems 10-point ROS is otherwise unremarkable Respiratory: Shortness of Breath Cardiovascular: Orthopnea Physical Examination - Vital Signs Temperature: 98.4 F Blood Pressure: 122/56 Pulse: 81 Respirations: 20 Pulse Ox (%): 92 - Physical Exam General: Alert, In no apparent distress, Oriented x3 HEENT: Atraumatic, Mucous membr. moist/pink Neck: JVD distended Respiratory: Diminished, Crackles/rales (bibasilar) Cardiovascular: Regular rate/rhythm, Normal S1 S2, No gallops, No rubs, No murmurs, Edema (2-3+ pitting BLE) Gastrointestinal: Normal bowel sounds, Soft and benign, Non-distended Musculoskeletal: No clubbing Integumentary: No rashes Neurological: Normal speech, Normal affect Assessment And Plan - Plan # Acute Hypoxic Respiratory Failure secondary to Acute on Chronic Diastolic Congestive Heart Failure with Preserved Ejection Fraction # Morbid Obesity (BMI 40.5 kg/m2) At home, his reported SpO2 was in the 80s with minimal exertion. - Consulted Cardiology - recommendations appreciated - Diuresis with IV furosemide for now - Continue home carvedilol - Chest x-ray = "mild prominence of the interstitial markings bilaterally which is nonspecific but may be related to interstitial edema and/or interstitial pneumonitis." - NT-Pro BNP = 1,208 (may be artificially low/normal in morbid obesity) - Ordered transthoracic echocardiogram - Daily weights - Strict I/O - Cardiac diet, 1.5 L fluid restriction, 2 g Na restriction # KDIGO Stage I Acute Kidney Injury on Chronic Kidney Disease Stage III # Anemia of Chronic Kidney Disease - Consulted Nephrology - recommendations appreciated - Creatinine = 3.30 -> 3.01 -> 2.77 -> 2.71 - Urinalysis = trace protein - Renal ultrasound = "unremarkable renal ultrasound. No evidence of hydronephrosis or echogenic calculi." - Monitor creatinine and urine output - Renally dose medications - Avoid nephrotoxic agents # Type II Diabetes Mellitus - Continue home insulin regimen + correction scale insulin # Aortic Valvulopathy s/p TAVR # Paroxysmal Arrhythmia on Anticoagulation - Continue home carvedilol, apixaban # Hypertension - Continue home amlodipine, carvedilol # Hyperlipidemia - Continue home rosuvastatin # Gout - Continue home allopurinol # History of Bacteremia - On chronic antibiotics per outpatient ID recommendations - Continue home amoxicillin Abhay Sharma M.D.
--- NOTE | 2022-10-29 14:52 | P.PN ---
Subjective Date of Service: 10/29/22 Chief Complaint: TORRES, CHF Subjective: No new changes Physical Examination - Vital Signs Temperature: 98.4 F Blood Pressure: 122/56 Pulse: 81 Respirations: 20 Pulse Ox (%): 92 - Physical Exam General: Other (appears as his stated age) HEENT: Atraumatic, Normocephalic Neck: Supple Respiratory: Other (symmetric chest expansion) Cardiovascular: No rubs, No murmurs Gastrointestinal: Soft and benign, No guarding Musculoskeletal: No clubbing, Swelling Integumentary: No warmth Neurological: Normal speech, Normal tone Urinary: Other (no bladder distention) External genitalia: Deferred Rectal: Deferred Assessment And Plan - Plan # TORRES 2/2 prerenal state SCr 3.3 on adm, improved to 2.7 today Urinalysis showed trace proteinuria but no hematuria no pyuria Urine chemistry non-prerenal No overt proteinuria on random UPCR CPK wnl, no rhabdo Renal ultrasound unremarkable [place] po fluid intake # CKD3 presumed to be 2/2 Htn/DM Baseline SCr 1.5-1.8 (GFR 39-49 ml/min) as of July 2022 Monitor renal panel # Acute respi failure Hx of chronic diastolic HF, s/p TAVR Low Na diet < 2g/d On eliquis, lasix Per other services # Htn Cont current med regimen # DM2 Mngt per primary team # Hx of bacteremia, unknown source, on chronic antibiotics On amoxicillin Per other services Physician Review: Patient Assessed, Agree with Above Assessment and Plan
--- NOTE | 2022-10-29 16:40 | CON ---
Date of Consultation: 10/28/2022 Reason For Consultation: CHF. History Of Present Illness: A -[id number] male with history of diastolic heart failure, diab etes, dyslipidemia, hypertension, aortic valve stenosis, status post TAVR this past year, chronic kid golden disease, presented with shortness of breath, lower extremity edema, and orthopnea. He was satura ting around 85% on room air upon arrival. Patient has been taking bumetanide 2 mg twice a day, metol azone 2.5 mg every other day, but he continued to accumulate fluids and became significantly worse. He presents to the emergency room. Past Medical History: As outlined above in HPI. Medications: Refer to reconciliation sheet for detailed list. Allergies: NO KNOWN DRUG ALLERGIES. Family History: No premature coronary artery disease or cancer. Social History: Does not smoke or drink. Does not use any drugs. Review of Systems: All systems reviewed and they were negative except what mentioned in HPI. Physical Examination: Vital Signs: Reviewed. Head and Neck: Pupils are equal, reactive to light. Intact eye movements. No JVD. No cervical lym phadenopathy. Neck is supple. Thyroid is not enlarged. Lungs: Clear to auscultation bilaterally. No rhonchi, wheezing, crackles. Heart: Regular. No extra sounds. Abdomen: Soft, nontender. Bowel sounds positive. No organomegaly. No masses or hernia. No rigidi ty or rebound. Extremities: No edema, clubbing, cyanosis. Intact pulses. On lower extremities exam, has 4+ edema. Skin: No rash. Neurologic: Alert, awake, oriented x3. No acute focal deficits appreciated. Investigation: Reviewed. Assessment/recommendation: 1.Acute on chronic diastolic heart failure exacerbation. Recommend Lasix 80 mg IV q.12 hours. Disc ontinue IV fluids. Patient is severely fluid overloaded. Monitor BUN, creatinine, electrolytes. 2.Acute on chronic renal failure. Creatinine is high, likely due to elevated central venous pressur e, should improve with diuresis. 3.History of atrial fibrillation, controlled. Continue beta-dorinda and Eliquis. SR/MODL Voice ID: [id number] Report ID: [id number]
--- NOTE | 2022-10-29 16:40 | PN ---
Date of Progress Note: 10/29/2022 Subjective: Seen by bedside, doing well, breathing better. Creatinine improving with the Lasix. Review of Systems: No chest pain. Has dyspnea on exertion and orthopnea, lower extremity edema. No nausea, vomiting, o r diarrhea. All other systems were reviewed, they were negative. Objective: Vital Signs: Reviewed. Head and Neck: Pupils are equal, reactive to light. Intact eye movements. No JVD. No cervical lym phadenopathy. Neck is supple. Thyroid is not enlarged. Lungs: Clear to auscultation bilaterally. No rhonchi, wheezing, or crackles. No accessory muscle u se. Heart: Irregular. No extra sounds. Abdomen: Soft, nontender. Bowel sounds positive. No organomegaly. No masses or hernia. No rigidi ty or rebound. Extremities: No clubbing or cyanosis. 3 to 4+ edema bilaterally. Neurologic: Alert, awake, oriented x3. No acute focal deficits appreciated. Investigations: BUN 53, creatinine 2.71, and hemoglobin is 8.1. Assessment And Recommendations: 1.Acute on chronic diastolic heart failure exacerbation. On echo, his heart function is normal and aortic bioprosthesis is functioning very well. Recommend diuresis with Lasix 80 mg IV q.12 hours. M onitor BUN, creatinine, electrolytes. 2.Acute on chronic renal failure. This is due to the cardiorenal syndrome and elevated central veno us pressure. His creatinine should improve with diuretics. 3.Paroxysmal atrial fibrillation. He is in sinus, and continue Coreg and apixaban. SR/MODL Voice ID: [id number] Report ID: [id number]
[2022-10-29] MEDS: ROSUVASTATIN 10 MG TAB PO SCH (20:32)
[2022-10-30] MEDS: carvediloL 25 MG TAB PO SCH ×2 (05:54→17:41)
[2022-10-30 07:02] LABS: Absolute Lymphocytes (CBC) 0.8 K/uL (0.7-4.9); Hematocrit 25.9 % (39.6-49.0); Lymphocytes % 12.1 % (15.3-44.8); MCV 84.1 fL (80-100); MPV 8.8 fL (7.6-11.3); Platelets 120 thou/uL (152-406); RBC Red Blood Cell Count 3.07 M/uL (4.33-5.43)
[2022-10-30 07:14] LABS: Potassium 3.4 mEq/L (3.5-5.1)
[2022-10-30] MEDS: INSULIN -REGULAR HUMAN 50 UNIT/0.5 ML ML SQ SCH ×4 (07:30→21:00)
[2022-10-30] MEDS: INSULIN GLARGINE 100 UNIT/ML SQ SCH ×2 (09:00→21:24)
[2022-10-30] MEDS: AMLODIPINE 10 MG TAB PO SCH (09:58)
[2022-10-30] MEDS: AMOXICILLIN TRIHYDR 250 MG CAP PO SCH ×2 (09:59→21:23)
[2022-10-30] MEDS: allopurinoL 300 MG TAB PO SCH (09:59)
[2022-10-30] MEDS: APIXABAN 5 MG TABLET PO SCH ×2 (09:59→21:23)
[2022-10-30] MEDS: HYDRALAZINE HCL 25 MG TABLET PO SCH ×3 (09:59→21:23)
[2022-10-30] MEDS: FUROSEMIDE 40 MG/4 ML VIAL IV SCH ×2 (09:59→17:41)
--- NOTE | 2022-10-30 11:28 | P.PN ---
Subjective Date of Service: 10/30/22 Chief Complaint: TORRES, CHF Subjective: No new changes Physical Examination - Vital Signs Temperature: 98.1 F Blood Pressure: 130/60 Pulse: 70 Respirations: 18 Pulse Ox (%): 97 - Physical Exam General: Other (appears his stated age) HEENT: Atraumatic, Normocephalic Neck: Supple Respiratory: Other (symmetric chest expansion) Cardiovascular: No rubs, No murmurs Gastrointestinal: Soft and benign, No guarding Musculoskeletal: No clubbing, Swelling Integumentary: No warmth Neurological: Normal speech, Normal tone Lymphatics: No axilla or inguinal lymphadenopathy Urinary: Other (no bladder distention) External genitalia: Deferred Rectal: Deferred Assessment And Plan - Plan # TORRES 2/2 prerenal state SCr 3.3 on adm, improved to 2.5 today Urinalysis showed trace proteinuria but no hematuria no pyuria Urine chemistry non-prerenal No overt proteinuria on random UPCR CPK wnl, no rhabdo Renal ultrasound unremarkable [place] po fluid intake > 2L/d # CKD3 presumed to be 2/2 Htn/DM Baseline SCr 1.5-1.8 (GFR 39-49 ml/min) as of July 2022 Monitor renal panel # HypoK KCl repletion prn # Acute respi failure Hx of chronic diastolic HF, s/p TAVR Low Na diet < 2g/d Do not limit po fluid intake unless he develops hypoNa < 130 On eliquis, lasix Per other services # Htn Cont current med regimen # DM2 Mngt per primary team # Hx of bacteremia, unknown source, on chronic antibiotics On amoxicillin Per other services Physician Review: Patient Assessed, Agree with Above Assessment and Plan
[2022-10-30] MEDS ORDERED: SILVER SULFADIAZINE 1% 50 GM TOP PRN (12:00)
[2022-10-30] MEDS: PANTOPRAZOLE 40MG TABLET PO SCH (12:44)
--- NOTE | 2022-10-30 15:05 | P.PN ---
Subjective Date of Service: 10/30/22 Chief Complaint: TORRES, CHF No acute events overnight. He has been making good urine output and his symptoms appear to be improving. He is on room air, but reports shortness of breath with exertion. He denies any chest pain or palpitations. Review of Systems 10-point ROS is otherwise unremarkable Respiratory: SOB with Excertion Cardiovascular: Edema Physical Examination - Vital Signs Temperature: 98.2 F Blood Pressure: 124/59 Pulse: 71 Respirations: 18 Pulse Ox (%): 97 Assessment And Plan - Plan - Physical Exam General: Alert, In no apparent distress, Oriented x3 HEENT: Atraumatic, Mucous membr. moist/pink Neck: JVD distended Respiratory: Diminished, Crackles/rales (faint bibasilar) Cardiovascular: Regular rate/rhythm, Normal S1 S2, No gallops, No rubs, No murmurs, Edema (2+ pitting BLE) Gastrointestinal: Normal bowel sounds, Soft and benign, Non-distended Musculoskeletal: No clubbing Integumentary: Chronic lower extremity wounds Neurological: Normal speech, Normal affect # Acute Hypoxic Respiratory Failure secondary to Acute on Chronic Diastolic Congestive Heart Failure with Preserved Ejection Fraction # Morbid Obesity (BMI 40.5 kg/m2) At home, his reported SpO2 was in the 80s with minimal exertion. - Consulted Cardiology - recommendations appreciated - Diuresis with IV furosemide for now - Continue home carvedilol - Chest x-ray = "mild prominence of the interstitial markings bilaterally which is nonspecific but may be related to interstitial edema and/or interstitial pneumonitis." - NT-Pro BNP = 1,208 (may be artificially low/normal in morbid obesity) - Ordered transthoracic echocardiogram - Daily weights - Strict I/O - Cardiac diet, 1.5 L fluid restriction, 2 g Na restriction # KDIGO Stage I Acute Kidney Injury on Chronic Kidney Disease Stage III # Anemia of Chronic Kidney Disease - Consulted Nephrology - recommendations appreciated - Creatinine = 3.30 -> 3.01 -> 2.77 -> 2.71 -> 2.47 - Urinalysis = trace protein - Renal ultrasound = "unremarkable renal ultrasound. No evidence of hydronephrosis or echogenic calculi." - Monitor creatinine and urine output - Renally dose medications - Avoid nephrotoxic agents # Chronic Lower Extremity Wounds - Follows with Dr. Naik for wound care as an outpatient - Dr. Naik consulted # Type II Diabetes Mellitus - Continue home insulin regimen + correction scale insulin # Aortic Valvulopathy s/p TAVR # Paroxysmal Arrhythmia on Anticoagulation - Continue home carvedilol, apixaban # Hypertension - Continue home amlodipine, carvedilol # Hyperlipidemia - Continue home rosuvastatin # Gout - Continue home allopurinol # History of Bacteremia - On chronic antibiotics per outpatient ID recommendations - Continue home amoxicillin Abhay Sharma M.D.
--- NOTE | 2022-10-30 18:40 | PN ---
Date of Progress Note: 10/30/2022 Subjective: Seen by bedside, clinically doing better. Losing weight gradually with IV diuresis. Review of Systems: Positive for dyspnea on exertion and lower extremity edema. No nausea, vomiting, diarrhea. No abdom inal pain. No dysuria, polyuria, or urinary urgency. All other systems reviewed and they were negat adenike. Physical Examination: Vital Signs: Reviewed. Head and Neck: Pupils are equal, reactive to light. Intact eye movements. No JVD. No cervical lym phadenopathy. Neck is supple. Thyroid is not enlarged. Lungs: Faint crackles in the bases. No accessory muscle use or muscle retraction. Heart: Irregular. No extra sounds. Abdomen: Soft, nontender. Bowel sounds positive. No organomegaly. No masses or hernia. No rigidi ty or rebound. Extremities: Edema bilaterally. No clubbing or cyanosis. Intact pulses. Skin: No rash. Neurologic: Alert, awake, oriented x3. No acute focal deficits appreciated. Investigations: BUN is 53, creatinine is 2.47, and CO2 was 36 and hemoglobin is 8.8. Assessment And Recommendations: 1.Acute on chronic diastolic heart failure exacerbation. He is still above his dry body weight. Co ntinue IV diuresis, but his CO2 level is going up. Recommend 1 day diuresis with acetazolamide, hold ing Lasix and then resume Lasix afterwards. 2.Hypertension. Blood pressure is controlled on multi antihypertensive agents which they can probab ly be decreased, especially the amlodipine given that his blood pressure is on the low side to allow for better diuresis and amlodipine could be part of his lower extremity edema as well, so we will go ahead and put it on hold for now to allow continuous diuresis. 3.Acute on chronic renal failure due to elevated central venous pressure due to significant fluid ov erload condition, hence the improvement with IV Lasix to continue current therapy. SR/MODL Voice ID: [id number] Report ID: [id number]
--- NOTE | 2022-10-30 18:44 | P.PN ---
Date of Service: 10/31/22 Subjective: Physical Exam: Vitals: Reviewed Gen: Alert, Oriented, NAD CV: regular rate & rhythm, 2+ pitting BLE Pulm: Diminished, Crackles/rales Abd: soft, nontender, nondistended MSK: no joint tenderness Integumentary: No rashes Neuro: normal speech, normal affect Problem List: Acute Hypoxic Respiratory Failure secondary to Acute on Chronic Diastolic CHF TORRES on CKD III Anemia of CKD Chronic Lower Extremity Wounds DM2 Aortic Valvulopathy s/p TAVR Paroxysmal Arrhythmia on Anticoagulation Hypertension Hyperlipidemia Gout Morbid Obesity History of Bacteremia Plan: Cardiology consulted continue IV lasix Continue home carvedilol Echo ordered Daily weights, Strict I/O Nephrology consulted Monitor renal function Renally dose medications, avoid nephrotoxic agents Dr. Naik consulted for chronic wounds - sees him as outpatient Continue home insulin regimen, sliding scale Continue home eliquis home amlodipine on hold Continue home rosuvastatin Continue home allopurinol On chronic antibiotics per outpatient ID recommendations Continue home amoxicillin
[2022-10-30] MEDS: ROSUVASTATIN 10 MG TAB PO SCH (21:23)
[2022-10-31] MEDS: ACETAMINOPHEN 500 MG TAB PO PRN (00:54)
[2022-10-31] MEDS: PANTOPRAZOLE 40MG TABLET PO SCH (05:53)
[2022-10-31] MEDS: carvediloL 25 MG TAB PO SCH ×2 (05:53→17:02)
[2022-10-31 06:33] LABS: Absolute Lymphocytes (CBC) 0.9 K/uL (0.7-4.9); Hematocrit 26.9 % (39.6-49.0); Lymphocytes % 13.2 % (15.3-44.8); MCV 84.6 fL (80-100); MPV 8.8 fL (7.6-11.3); Platelets 139 thou/uL (152-406); RBC Red Blood Cell Count 3.18 M/uL (4.33-5.43)
[2022-10-31 06:51] LABS: Magnesium 2.6 mg/dL (1.6-2.4); Potassium 3.3 mEq/L (3.5-5.1)
[2022-10-31] MEDS: INSULIN -REGULAR HUMAN 50 UNIT/0.5 ML ML SQ SCH ×4 (07:30→20:57)
[2022-10-31] MEDS: FUROSEMIDE 40 MG/4 ML VIAL IV SCH (08:24)
[2022-10-31] MEDS: HYDRALAZINE HCL 25 MG TABLET PO SCH ×3 (08:26→20:56)
[2022-10-31] MEDS: AMOXICILLIN TRIHYDR 250 MG CAP PO SCH ×2 (08:26→20:57)
[2022-10-31] MEDS: allopurinoL 300 MG TAB PO SCH (08:26)
[2022-10-31] MEDS: APIXABAN 5 MG TABLET PO SCH ×2 (08:26→20:57)
[2022-10-31] MEDS: INSULIN GLARGINE 100 UNIT/ML SQ SCH ×2 (08:27→20:58)
--- NOTE | 2022-10-31 16:37 | PN ---
Date of Progress Note: 10/31/2022 Subjective: Seen by bedside. Doing clinically very well. He does not have any chest pain or shortn ess of breath. His lower extremity edema is better. Review of Systems: No chest pain or shortness of breath. No nausea, vomiting, diarrhea. No abdominal pain. No dysuria , polyuria, or urinary urgency. All other systems reviewed and they were negative. Physical Examination: Vital Signs: Reviewed. Head and Neck: Pupils are equal, reactive to light. Intact eye movements. No cervical lymphadenopa thy. Neck is supple. Thyroid is not enlarged. Lungs: Clear to auscultation bilaterally. No rhonchi, wheezing, or crackles. No accessory muscle u se. Heart: Irregular. No extra sounds. Abdomen: Soft, nontender. Bowel sounds positive. No organomegaly. No masses or hernia. No rigidi ty or rebound. Extremities: There is no clubbing or cyanosis. Positive edema. Neurologic: Alert, awake, oriented x3. No acute focal deficits appreciated. Lymph Nodes: No cervical or axillary lymphadenopathy. Investigations: Labs were reviewed. Assessment And Recommendations: 1.Acute on chronic diastolic heart failure, improved very well with diuresis; however, BUN and creat inine started to climb up. We will hold off on IV diuresis for this afternoon and reassess tomorrow morning. 2.Acute on chronic renal failure. His creatinine improved and now it is climbing back up again. Ho ld off diuretics for 1 day and reassess tomorrow. 3.Hypokalemia. Replace potassium. 4.Atrial fibrillation. This is controlled with medical management including Eliquis. 5.Dyslipidemia. Continue statin. SR/MODL Voice ID: [id number] Report ID: [id number]
[2022-10-31] MEDS: ROSUVASTATIN 10 MG TAB PO SCH (20:57)
--- NOTE | 2022-11-01 00:37 | PN ---
Date of Progress Note: 10/31/2022 Subjective: Acute kidney injury and congestive heart failure. The patient has multiple medical prob lems. He presented to the hospital because of shortness of breath, anasarca. He has lower extremity edema and was started on diuretic. Review of Systems: Denies fever, chills. Physical Examination: Lungs: Diminished breath sounds at bases. Heart: S1-S2. Abdomen: Soft. Extremities: Edema present. Impression And Plan: 1.Acute kidney injury secondary to prerenal state. Serum creatinine level is improved from 3.3 to 2 .5. Urinalysis showed trace proteinuria, but no pyuria and no hematuria. Urine chemistry consistent with prerenal azotemia, prerenal state. There is no overt proteinuria on random urine protein creat inine ratio. 2.The patient had renal ultrasound which did not show obstructive uropathy. The patient will contin ue adequate hydration and the patient does not have rhabdomyolysis. CPK level was within normal limi ts. 3.Chronic kidney disease stage 3 due to hypertension and diabetes. Baseline serum creatinine level 1.5-1.8 as of July 2022. The patient developed acute kidney injury secondary to prerenal state and a cute kidney injury associated with chronic diastolic congestive heart failure. The patient underwent TAVR for aortic stenosis. The patient will continue low-sodium diet. Sodium intake less than 2 g p er day. The patient will continue maintenance Lasix dose. Re-evaluate urine output. Adjust the Las ix dose as needed. 4.Hypokalemia, potassium chloride treatment initiated. 5.Hypertension. Continue current medication. 6.History of bacteremia of unknown source. The patient is on chronic antibiotic management per primary team. 7.Hypertension. Continue current medication regimen. LILI/SERGIO Voice ID: [id number] Report ID: [id number]
[2022-11-01] MEDS: ACETAMINOPHEN 500 MG TAB PO PRN (01:14)
[2022-11-01 04:23] LABS: Albumin 3.5 g/dL (3.4-5.0); Bilirubin Total 1.3 mg/dL (0.2-1.0); Magnesium 2.3 mg/dL (1.6-2.4); Phosphorus 4.1 mg/dL (2.5-4.9); Potassium 3.1 mEq/L (3.5-5.1); Protein, Total 8.4 g/dL (6.4-8.2)
[2022-11-01] MEDS: PANTOPRAZOLE 40MG TABLET PO SCH (06:24)
[2022-11-01] MEDS: carvediloL 25 MG TAB PO SCH ×2 (06:24→17:25)
--- NOTE | 2022-11-01 06:44 | ECHO ---
HEIGHT: 6 ft 8 in WEIGHT: 359 lb 4.8 oz DATE OF STUDY: 10/28/[address]: Abhay Sharma MD 2-DIMENSIONAL: YES M.MODE: YES DOPPLER: YES COLOR FLOW: YES TDS: YES PORTABLE: BETH DEFINITY: BUBBLE STUDY: DIAGNOSIS: CONGESTIVE HEART FAILURE CARDIAC HISTORY: CATHERIZATION: YES SURGERY: PROSTHETIC VALVE: TAVR PACEMAKER: MEASUREMENTS (cm) DIASTOLIC (NORMALS) SYSTOLIC (NORMALS) IVSd 1.2 (0.6-1.2) LA Diam 4.6 (1.9-4.0) LVEF 59% LVIDd 5.6 (3.5-5.7) LVIDs 3.9 (2.0-3.5) %FS 31% LVPWd 1.3 (0.6-1.2) Ao Diam 2.4 (2.0-3.7) 2 DIMENSIONAL ASSESSMENT: RIGHT ATRIUM: NORMAL LEFT ATRIUM: ENLARGED RIGHT VENTRICLE: NORMAL LEFT VENTRICLE: NORMAL TRICUSPID VALVE: MILD TRICUSPID REGURGITATION MITRAL VALVE: MILD MITRAL REGURGITATION PULMONIC VALVE: NORMAL AORTIC VALVE: BIOPROSTHETIC PERICARDIAL EFFUSION: NONE AORTIC ROOT: NORMAL LEFT VENTRICULAR WALL MOTION: NORMAL DOPPLER/COLOR FLOW: SEE BELOW COMMENTS: 1. NORMAL LEFT VENTRICULAR EJECTION FRACTION 55-60% WITH NORMAL WALL MOTION 2. DIASTOLIC DYSFUNCTION 3. LEFT ATRIAL ENLARGEMENT 4. AORTIC VALVE BIOPROSTHESIS IS FUNCTIONING WELL 5. MILD MITRAL REGURGITATION 6. MILD TRICUSPID REGURGITATION 7. 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 TECHNOLOGIST: SOPHIA CERON
[2022-11-01] MEDS: INSULIN -REGULAR HUMAN 50 UNIT/0.5 ML ML SQ SCH ×4 (07:30→21:18)
[2022-11-01] MEDS: allopurinoL 300 MG TAB PO SCH (08:39)
[2022-11-01] MEDS: AMOXICILLIN TRIHYDR 250 MG CAP PO SCH ×2 (08:39→21:08)
[2022-11-01] MEDS: HYDRALAZINE HCL 25 MG TABLET PO SCH ×3 (08:39→21:09)
[2022-11-01] MEDS: APIXABAN 5 MG TABLET PO SCH ×2 (08:39→21:09)
[2022-11-01] MEDS: INSULIN GLARGINE 100 UNIT/ML SQ SCH ×2 (08:40→21:17)
--- NOTE | 2022-11-01 12:06 | PN ---
Date of Progress Note: 11/01/2022 Subjective: The patient was admitted to the hospital with over volume. The patient was started on a ggressive diuresis. The patient responded very well. Still short winded. Physical Examination: Vital Signs: When I saw the patient; blood pressure 124/61, pulse of 70, afebrile. The patient had good urine output of 2200. The patient negative only 200. Chest: Crackles bilateral. Heart: S1, S2. Systolic murmur. Abdomen: Soft, nontender. Extremity: Venous stasis change bilateral, edema +2. Neurologic: Alert. No focality. Laboratory Data: Hemoglobin of 9. Sodium 137, potassium 3.1, bicarb 35, BUN 52, creatinine 2.5, GFR 26, calcium 9.2, phosphorus 4.1, albumin 3.5, corrected calcium 9.6. Urinalysis negative for infect ion, PC ratio 0.2. Current Medications: The patient on include carvedilol 25 b.i.d., hydralazine 100 t.i.d., rosuvastat in, Tylenol, Zofran, pantoprazole, allopurinol, Renvela. Assessment And Plan: 1.Acute kidney injury secondary to cardiorenal, over volume. Obstructive uropathy has been ruled ou t. I am going to go ahead and give the patient extra dose of Lasix, resume diuresis, and we will fol low up the patient. 2.Hypertension, controlled, currently optimal. I am going to go ahead and decrease his hydralazine to 50 mg to allow more blood pressure for the diuresis and we will follow up the patient. 3.Hyponatremia, dilutional. Continue diuresis. 4.Congestive heart failure with aortic valve repair. Follow up with Cardiology. We will continue to optimize fluid with diuresis. 5.Bacteremia. Follow up with primary. JULIÁN/SERGIO Voice ID: [id number] Report ID: [id number]
--- NOTE | 2022-11-01 14:02 | RAD REPORT ---
EXAM DESCRIPTION: Mark Single View11/01/2022 1:38 pm CLINICAL HISTORY: Shortness of breath COMPARISON: September 2022 FINDINGS: Mild bilateral interstitial lung opacities are present. Lungs are hyperaerated The heart is normal size IMPRESSION: Mild bilateral interstitial lung opacities may indicate mild interstitial pulmonary mamie a
[2022-11-01] MEDS: FUROSEMIDE 40 MG/4 ML VIAL IV SCH (17:25)
--- NOTE | 2022-11-01 18:28 | PN ---
Date of Progress Note: 11/01/2022 Subjective: Seen by bedside. Doing clinically very well, diuresing further. Review of Systems: No chest pain, shortness of breath, orthopnea, cough. No nausea, vomiting, diarrhea. All other syst ems reviewed and they were negative. He wants to go home. Physical Examination: Vital Signs: Reviewed. Head and Neck: Pupils are equal, reactive to light. Intact eye movements. No JVD. No cervical lym phadenopathy. Neck is supple. Thyroid is not enlarged. Lungs: Clear to auscultation bilaterally. No rhonchi, wheezing, or crackles. No accessory muscle u se. Heart: Irregular. No extra sounds. Abdomen: Soft, nontender. Bowel sounds positive. No organomegaly. No masses or hernia. No rigidi ty or rebound. Extremities: No edema, clubbing, or cyanosis. Intact pulses. Skin: No rash. Neurologic: Alert, awake, oriented x3. No acute focal deficits appreciated. Investigations: BUN 52, creatinine 2.53, and hemoglobin is 9. Assessment And Recommendations: 1.Acute on chronic diastolic heart failure exacerbation, significant improvement. I believe at this point, he can be switched to oral Lasix and plan for discharge within the next 24 hours. 2.Hypertension. Blood pressure is controlled. Continue current management. 3.Aortic sclerosis, status post transcatheter aortic valve replacement. The aortic valve bioprosthe sis is functioning very well. 4.Dyslipidemia. Continue statin. From Cardiology standpoint, the patient can be released and I clara l follow him as an outpatient. SR/MODL Voice ID: [id number] Report ID: [id number]
[2022-11-01] MEDS: ROSUVASTATIN 10 MG TAB PO SCH (21:09)
[2022-11-01 21:25] VITALS: O2SAT 91
[2022-11-02 05:08] LABS: Albumin 3.5 g/dL (3.4-5.0); Magnesium 2.3 mg/dL (1.6-2.4); Phosphorus 4.2 mg/dL (2.5-4.9)
[2022-11-02] MEDS: PANTOPRAZOLE 40MG TABLET PO SCH (06:29)
[2022-11-02] MEDS: carvediloL 25 MG TAB PO SCH (06:29)
[2022-11-02] MEDS: INSULIN -REGULAR HUMAN 50 UNIT/0.5 ML ML SQ SCH (07:30)
[2022-11-02] MEDS: HYDRALAZINE HCL 25 MG TABLET PO SCH (08:46)
[2022-11-02] MEDS: allopurinoL 300 MG TAB PO SCH (08:46)
[2022-11-02] MEDS: AMOXICILLIN TRIHYDR 250 MG CAP PO SCH (08:46)
[2022-11-02] MEDS: APIXABAN 5 MG TABLET PO SCH (08:46)
[2022-11-02] MEDS: FUROSEMIDE 40 MG/4 ML VIAL IV SCH (08:46)
[2022-11-02] MEDS: INSULIN GLARGINE 100 UNIT/ML SQ SCH (08:47)
[2022-11-02 09:00] VITALS: BP 140/62; TEMP 98.1
== END 2022-11-02 09:37 | disposition home health service (06) | DRG 682 ==
LOC: ER 21:55 → ERHOLD 10-28 00:24 → 2ND 10-28 01:06
PROVIDERS: ADMIT Internal Medicine; ATTEND Hospitalist
DX: N17.9 Acute kidney failure, unspecified (principal); I50.33 Acute on chronic diastolic (congestive) heart failure; J96.01 Acute respiratory failure with hypoxia; J96.02 Acute respiratory failure with hypercapnia; I13.0 Hypertensive heart and chronic kidney disease with heart failure and stage 1 through stage 4 chronic kidney disease, or unspecified chronic kidney disease; Z68.41 Body mass index [BMI] 40.0-44.9, adult; R78.81 Bacteremia; E66.01 Morbid (severe) obesity due to excess calories; N18.30 Chronic kidney disease, stage 3 unspecified; E11.22 Type 2 diabetes mellitus 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chronic kidney disease; D63.1 Anemia in chronic kidney disease; D63.8 Anemia in other chronic diseases classified elsewhere; K21.9 Gastro-esophageal reflux disease without esophagitis; E87.6 Hypokalemia; I48.0 Paroxysmal atrial fibrillation; E78.5 Hyperlipidemia, unspecified; M10.9 Gout, unspecified; M19.90 Unspecified osteoarthritis, unspecified site; Z79.4 Long term (current) use of insulin; Z90.49 Acquired absence of other specified parts of digestive tract; Z79.84 Long term (current) use of oral hypoglycemic drugs; Z79.01 Long term (current) use of anticoagulants; Z87.891 Personal history of nicotine dependence; Z79.899 Other long term (current) drug therapy; Z96.653 Presence of artificial knee joint, bilateral
CPT/HCPCS: 36415; 71045; 76770; 80048; 80053; 80069; 80076; 81001; 82306; 82550; 82570; 82947; 83605; 83690; 83735; 83880; 83935; 83970; 84100; 84132; 84156; 84300; 84484; 85025; 85610; 85730; 87040; 93005; 93306; 99285; J1815; J1940; J7030

== ENCOUNTER 2022-12-05 00:52 | Emergency (ER) | payer OTHER ==
--- OUTSIDE RECORDS SUMMARY | 2022-12-05 01:04 | XMS REPORT | Continuity of Care Document ---
:1945 Author Organization [facility] t Address [address] [place] [address] [place] [id number] Care Team Providers Name Role Phone Yann West Attending Clinician Unavailable ANGELIKA LUGO Attending Clinician Unavailable GABY ISLAS Attending Clinician Unavailable Eduin MAJOR, Sudeep Attending Clinician [phone] Eligio Roach MD Attending Clinician ELIGIO ROACH Attending Clinician Unavailable Leigh Mejia CRNA Attending Clinician Prashant Rayo MD Attending Clinician [phone] Shakila MAJOR, Geneva May Attending Clinician Antonino BARTHOLOMEW, Maryse Attending Clinician Unavailable Diya Rivera RN Attending Clinician Unavailable Adrienne MAJOR, Lilian Raines Attending Clinician [phone] LILIAN DELEON Attending Clinician Unavailable Ally MAJOR, Geovani Price Attending Clinician Kartik Killian MD Attending Clinician [phone] KARTIK KILLIAN Attending Clinician Unavailable Blayne RN, Bernarda Garrison Attending Clinician Neetu Shah Attending Clinician Unavailable Sam Paredes Attending Clinician GABY ISLSA Admitting Clinician Unavailable SUDEEP DENNY Admitting Clinician Unavailable LILIAN DELEON Admitting Clinician Unavailable Yann West Admitting Clinician Unavailable Payers Payer Name Policy Type Policy Number Effective Date Expiration Date S sean AETNA MEDICARE HMO [id number] 2022 POS PPO 00:00:00 AETNA FORMERLY [facility] [id number] 2021 2021 SUPPLEMENTAL 00:00:00 00:00:00 MEDICARE NOVITAS MB [id number] [place] [id number] [facility] MEDICARE NOVITAS MB [id number] [place] [id number] [facility] MEDICARE NOVITAS MB [id number] [place] [id number] [id number] [facility] Problems Condition Condition Condition Status Onset Resolution Last Treating Co mments Source Name Details Category Date Date Treatment Clinician Date Paroxysmal Paroxysmal Disease Active 2021-[address] atrial atrial 2-31 [facility] fibrillati fibrillati 00:00: Me dical on on 00 [place] Bacteremia Bacteremia Disease Active 2021-[address] 2-23 [facility] 00:00: Medical 00 [place] Bilateral Bilateral Disease Active [facility] carotid carotid 8-03 [facility] artery artery 00:00: Medical disease disease 00 Center Severe Severe Disease Active [facility] aortic aortic 8-03 [facility] stenosis stenosis 00:00: Medica l 00 [place] Essential Essential Disease Active [facility] hypertensi hypertensi 8-03 [facility] on, benign on, benign 00:00: Me dical 00 [place] Chronic Chronic Disease Active [facility] venous venous 7-30 [facility] insufficie insufficie 00:00: Me dical ncy of ncy of 00 [place] lower lower extremity extremity H/O H/O Disease [...] 3 Psoriasis Psoriasis Disease Active [facility] 7[facility]29 [facility] 00:00: Medical 00 Center Osteoarthr Osteoarthr Disease Active [facility] itis itis 7-29 [facility] 00:00: Medical 00 Center Essential Essential Problem Active 2021-06-18 [facility] hypertensi hypertensi 10-22 04:44:46 l on on 00:00: [place] (disorder) (disorder) 00 Active 10/23/2015 Problem 06/18/2021 [facility] Type II Type II Problem Active 2021-06-18 Vt moria diabetes diabetes 10-22 04:44:46 l mellitus mellitus 00:00: n without without 00 complicati complicati on on (disorder) (disorder) Active 10/23/2015 Problem 06/18/2021 [facility] Essential Essential Problem Active 2021-06-18 [facility] tremor tremor 03-20 04:44:46 l (disorder) (disorder) 00:00: Marcus rmleeroy Active 00 03/20/2015 Problem 06/18/2021 [facility] Neuropathy Neuropath Problem Active 2021-06-18 Memoria (disorder) y 04:44:46 l (disorder) n Active Problem 06/18/2021 [facility] 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 04:44:46 l s s [place] (disorder) (disorder) Active Problem 06/18/2021 [facility] Metal Metal Problem Active 2021-06-18 [place] foreign foreign 04:44:46 l body in body in [place] upper limb upper limb (disorder) (disorder) Active Problem 06/18/2021 [facility] [id number] [place] [id number] carotid Spirit stenosis - [facility] [id number] Vitamin D Problem Comm on deficiency Spirit - [facility] [id number] 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 aortic valve [facility] Medica l t) Center [id number] Chronic Problem Commo n diastolic Spirit congestive - [facility] heart failure [facility] [id number] Chronic Problem Commo n heart Spirit failure - [facility] with [facility] ejection Medical fraction Center Heart Murmur, Problem Common murmur cardiac [facility] - [facility] Gastroesop Chronic Problem Comm on hageal GERD Spirit reflux - CHI disease [facility] Essential Benign Problem Common hypertensi essential Spi rit on HTN - [facility] Iron Anemia, Problem Common deficiency iron Spirit anemia deficiency - [facility] Benign Hyperplast Problem Commo n neoplasm ic colon Spirit of colon polyp - [facility] Hyperlipid Hyperlipid Problem C ommon emia emia [facility] [id number] Morbid Problem Commo n [id number] (severe) Spirit obesity - [facility] due to [facility] [id number] Diabetic Problem Comm on polyneurop Spirit athy - [facility] associated St with type 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 insulin [facility] [id number] Chronic Problem Common obstructiv Spirit e - [facility]I pulmonary St disease, [facility] unspecifie Medica l d COPD Center type [id number] Proteinuri Problem Com mon a, Spirit unspecifie - CHI d [facility] [id number] Body mass Problem Com mon index Spirit (BMI) - CHI 40.0-44.9, adult [facility] [id number] Type 2 [place] [id number] diabetes Spirit mellitus - CHI with other diabetic 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 other part St of left 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 scalp and skin of [facility] neck Medical [place] [id number] Type 2 Problem Common diabetes Spirit mellitus - CHI with foot ulcer [facility] [id number] Diabetes Problem Comm on mellitus Spirit due to - [facility] underlying St condition [facility] with foot Medical ulcer Center [id number] Edema of Problem Comm on lower Spirit extremity - CHI due to peripheral [facility] venous Medical insufficie Center ncy Allergies, Adverse Reactions, Alerts Allergy Allergy Status Severity Reaction(s) Onset Inactive Treating Comm ents Source Name Type Date Date Clinician DANAE Allergy Active Other [facility] [place] 04-09 [facility] 00:00: Medical 00 Center No Known DA Active [facility] Allergie 05-25 Clear s 00:00: [place] 00 [facility] NO KNOWN Allergy Active [facility] No Known No Known Active Memori a Medicati Medicati l on on [place] Allergie Allergie s s Family History Family Member Diagnosis Comments Start Date Stop Date Source Natural brother Heart attack [facility] Natural brother Valvular heart [facility] Center Natural father Heart disease [facility] Natural father Heart failure [facility] Natural father Other [facility] Natural mother Alzheimer's disease C HI [facility] Natural mother Stroke [facility] Social History Social Habit Start Date Stop Date Quantity Comments Source History SDAZ [facility] Alcohol Frequency Medical Center History SDAZ [facility] Alcohol Std Drinks Medica l Center History SDAZ [facility] Alcohol Binge Medical [facility] [facility] History [facility] Non-Med Medical Center History of Tobacco [facility] - Use [facility] Alcohol intake 2022-02-26 2022-02-26 Current drinker [facility] 00:[facility]:00 00:00:00 of alcohol Medical Center (finding) History [facility] 2022-02-18 2022-02-[address] [facility] Transport Med 00:00:00 00:00:[address] [facility] 2022-02-18 2022-02-[address] [facility] Housing Unable to 00:00:00 00:00:00 Medical Center Pay History [facility] 2022-02-18 2022-02-[address] [facility] Housing Places 00:00:00 00:00:00 Medical Ce nter Lived History [facility] 2022-02-18 2022-02-[address] [facility] Housing Homeless 00:00:00 00:00:00 Medical Center Last Year Cigarettes smoked 2021-09-24 2021-09-[address] [facility] current (pack per 00:00:00 00:00:00 Medical Center day) - Reported Tobacco use and 2021-09-24 2021-09-[address] [facility] kes exposure 00:00:00 00:00:00 Medical Center Alcohol Comment 2021-09-24 2021-09-[address] [facility] 00:00:00 00:00:00 Medical Center Sex Assigned At [address] [facility] 00:00:00 00:00:00 Medical Center Smoking Status Start Date Stop Date Source Social History 2021-06-15 15:08:27 2021-06-15 15:08:27 [facility] Medications Ordered Filled Start Stop Current [...] S pirit one) one) 00:00: - [facility] Kenalog Kenalog No 40mg Common (Triamcinol (Triamcinol 1-13 S pirit one) one) 00:00: - [facility] Kenalog Kenalog No 40mg Common (Triamcinol (Triamcinol 1-13 S pirit one) one) 00:00: - [facility] Azithromyci Azithromyci 2022- No QD Azithromyc n [...] hours. 100 mL (V2B) IVPB bumetanide 2021-02- No 1mg Take [address] (BUMEX) 1 2-30 12-30 tablet (1 Luke s MG tablet 00:00: 23:59 mg total) Me dical 00 :00 by mouth 2 Center (two) times daily. carvediloL 2021-02- No 3.125mg Q.5D Take [address] (COREG) -25 02-30 tablet [facility] 3.125 MG 00:00: 23:59 (3.125 [...] n/FA/lycope 8-30 mouth. [facility] n/lutein 16:09: Medical ([address] SILVER MEN ORAL) multivit-mi 2021-0 Yes Take by [facility] n/FA/lycope 8-30 mouth. [facility] n/lutein 16:09: Medical ([address] SILVER MEN ORAL) multivit-mi 0 Yes Take by [facility] n/FA/lycope 8-30 mouth. [facility] n/lutein 16:09: Medical ([address] SILVER MEN ORAL) magnesium 2021-0 Yes [...] 30 times Center daily before meals. glipiZIDE 2-0 Yes 10mg Take [address] (GLUCOTROL) 8-30 by mouth 2 Laurie kes 10 MG 16:09: (two) Medical tablet 30 times Center daily before meals. glipiZIDE 2022-0 Yes 10mg Take [address] (GLUCOTROL) 8-30 by mouth 2 Laurie kes 10 MG 16:09: (two) Medical tablet 30 times Center daily before meals. ferrous 2-0 Yes 325mg Take 325 [facility] t [...] 8-30 by mouth [facility]ukes tablet 16:08: daily. [address] aspirin 81 2021-0 Yes 81mg QD Take [address] MG EC 8-30 by mouth [facility] tablet 16:08: daily. [address] aspirin 81 2021-0 Yes 81mg QD Take [address] MG EC 8-30 by mouth [facility] tablet 16:08: daily. [address] apremilast 2021-0 Yes Take by [facility] (Otezla) 30 8-30 mouth. [facility] mg Tab 16:08: [address] apremilast 2021-0 Yes Take by [facility] (Otezla) 30 8-30 mouth. [facility] mg Tab 16:08: [address] apremilast 2021-0 Yes Take by [facility] (Otezla) 30 8-30 mouth. [facility] mg Tab 16:08: [address] clopidogreL 2021-2022- No 75mg QD Take 1 [...] Take [address] (PLAVIX) 75 10-01 tablet (75 L ukes mg tablet 00:00: [...] 47 :00 times Center daily. furosemide 2021-0 2022- No 40mg Q.5D Take [address] (LASIX) 40 8-04 08-04 by mouth 2 Laurie kes MG tablet 10:58: 00:00 (two) Medica l 47 :00 times Center daily. furosemide 2021-0 2021- No 40mg Q.5D Take [address] (LASIX) 40 8-04 08-04 by mouth 2 Laurie kes MG tablet 10:58: 00:00 (two) Medica l 47 :00 times Center daily. lisinopriL 2021-0 2022- No 20mg Take [address] (PRINIVIL,Z 8-04 08-04 tablet (20 L ukes ESTRIL) 20 00:00: 23:59 mg total) M edical MG tablet 00 :00 by mouth 2 Cent er (two) times daily before meals. lisinopriL 2021-0 2022- No 20mg Take [address] (PRINIVIL,Z 8-04 08-04 tablet (20 L ukes ESTRIL) 20 00:00: 23:59 mg total) M edical MG tablet 00 :00 by mouth 2 Cent er (two) times daily before meals. lisinopriL 2021-0 2022- No 20mg Take [address] (PRINIVIL,Z 8-04 08-04 tablet (20 L ukes ESTRIL) 20 00:00: 23:59 mg total) M edical MG tablet 00 :00 by mouth 2 Cent er (two) times daily before meals. lisinopriL 2021-0 2023- No 20mg Take [address] (PRINIVIL,Z 8-04 08-04 tablet (20 L ukes ESTRIL) 20 00:00: 23:59 mg total) M edical MG tablet 00 :00 by mouth 2 Cent er (two) times daily before meals. apixaban 2021-0 2- No 5mg Q.5D Take [...] 100mg Take [address] (MINOCIN,DY - 08- capsule Luke s NACIN) 100 00:00: [...] 12 (twelve) hours for 5 days. rosuvastati 0 Yes 10mg QD Take [address] n (CRESTOR) 7-13 by mouth Luke s 10 MG 00:00: nightly. Medical tablet 00 [place] rosuvastati 0 Yes 10mg QD Take [address] n (CRESTOR) 7-13 by mouth Luke s 10 MG 00:00: nightly. Medical tablet 00 [place] rosuvastati 0 Yes 10mg QD Take [address] n (CRESTOR) 7-13 by mouth Luke s 10 MG 00:00: nightly. Medical tablet 00 [place] rosuvastati Yes 10mg QD Take [address] n (CRESTOR) 7-13 by mouth Luke s 10 MG 00:00: nightly. Medical tablet 00 [place] allopurinoL Yes 300mg QD Take [address] (ZYLOPRIM) 7-11 mg by [facility]ukes 300 MG 00:00: mouth Medical tablet 00 daily. [place] allopurinoL Yes 300mg QD Take [address] (ZYLOPRIM) 7-11 mg by [facility] 300 MG 00:00: mouth Medical tablet 00 daily. [place] allopurinoL Yes 300mg QD Take [address] (ZYLOPRIM) 7-11 mg by [facility] 300 MG 00:00: mouth Medical tablet 00 daily. [place] allopurinoL Yes 300mg QD Take [address] (ZYLOPRIM) 7-11 mg by [facility] 300 MG 00:00: mouth Medical tablet 00 daily. [place] omeprazole 0 Yes 40mg QD Take [address] (PriLOSEC) 6-29 by mouth [facility]ukes 40 MG 00:00: daily. Medical capsule 00 [place] omeprazole 0 Yes 40mg QD Take [address] (PriLOSEC) 6-29 by mouth [facility] 40 MG 00:00: daily. Medical capsule 00 [place] omeprazole 0 Yes 40mg QD Take [address] (PriLOSEC) 6-29 by mouth [facility] 40 MG 00:00: daily. Medical capsule 00 [place] omeprazole 0 Yes 40mg QD Take [address] (PriLOSEC) 6-29 by mouth [facility] 40 MG 00:00: daily. Medical capsule 00 Center metoprolol 0 Yes 100mg QD Take [address] succinate 6-24 mg by [facility]ukes (TOPROL-XL) 00:00: mouth Medic al 100 MG 24 00 daily. Center hr tablet metoprolol 2021-0 Yes 100mg QD Take [address] succinate 6-24 mg by [facility]ukes (TOPROL-XL) 00:00: mouth Medic al 100 MG 24 00 daily. Center hr tablet metoprolol 2021-0 Yes 100mg QD Take [address] succinate 6-24 mg by [facility]ukes (TOPROL-XL) 00:00: mouth Medic al 100 MG 24 00 daily. Center hr tablet metoprolol 2021- No 50mg QD Take [address] succinate 6-24 12-30 by mouth [facility] (TOPROL-XL) 00:00: 00:00 daily . Me dical 100 MG 24 00 :00 Center hr tablet lisinopriL 0 2022- No 20mg QD Take [address] (PRINIVIL,Z 6-24 08-04 by mouth Bakari es ESTRIL) 20 00:00: 00:00 daily. Medi carey MG tablet 00 :00 [place] lisinopriL 0 2- No 20mg QD Take [address] (PRINIVIL,Z 6-24 08-04 by mouth Bakari es ESTRIL) 20 00:00: 00:00 daily. Medi carey MG tablet 00 :00 [place] lisinopriL 0 2022- No 20mg QD Take 20 mg [...] Medical capsule 00 times Center daily. gabapentin 2-0 Yes Q.5D Take by CHI [...] (18 mg/3 daily. mL) syringe liraglutide 0 2022- No 1.8mg QD Inject 1.[address] (Victoza 6-18 12-30 mg [facility]ukes 2-Malvin) 0.6 00:00: 00:00 [place] Medical mg/0.1 mL 00 :00 usly Center (18 mg/3 daily. mL) syringe Levemir 2021-0 Yes 60U Q.5D Inject 60 [...] mL) InPn injection amLODIPine 2021-0 Yes 10mg Q.[id number] Take [address] (NORVASC) 5-16 [id number] by mouth 3 [facility] 10 MG 00:00: 3D (three) Medical tablet 00 times Center daily. hydrALAZINE 2021-0 Yes 100mg Q.[id number] Take [address] (APRESOLINE 5-16 [id number] mg by L ukes ) 100 MG 00:00: 3D mouth 3 Medica l tablet 00 (three) Center times daily. amLODIPine 2021-0 Yes 10mg Q.[id number] Take [address] (NORVASC) 5-16 [id number] by mouth 3 [facility] 10 MG 00:00: 3D (three) Medical tablet 00 times Center daily. hydrALAZINE 2021-0 Yes 100mg Q.[id number] Take [address] (APRESOLINE 5-16 [id number] mg by L ukes ) 100 MG 00:00: 3D mouth 3 Medica l tablet 00 (three) Center times daily. amLODIPine 2021-0 Yes 10mg Q.[id number] Take [address] (NORVASC) 5-16 [id number] by mouth 3 [facility] 10 MG 00:00: 3D (three) Medical tablet 00 times Center daily. hydrALAZINE 2-0 Yes 100mg Q.[id number] Take [address] (APRESOLINE 5-16 [id number] mg by L ukes ) 100 MG 00:00: 3D mouth 3 Medica l tablet 00 (three) Center times daily. hydrALAZINE 2022-0 Yes 100mg Q.[id number] Take [address] (APRESOLINE -16 [id number] mg by L ukes ) 100 MG 00:00: 3D mouth 3 Medica l tablet 00 (three) Center times daily. amLODIPine 2021-0 2022- No 10mg QD Take [address] (NORVASC) 5-16 12-30 by mouth [facility]ukes 10 MG 00:00: 00:00 daily . Medical tablet 00 :00 [place] baclofen 2021-0 Yes 10mg QD [address] (LIORESAL) 5-03 nightly. [facility]ukes 10 MG 00:00: Medical tablet 00 [place] baclofen 2021-0 Yes 10mg QD [address] (LIORESAL) 5-03 nightly. [facility] 10 MG 00:00: Medical tablet 00 [place] baclofen 2021-0 Yes 10mg QD [address] (LIORESAL) 5-03 nightly. [facility] 10 MG 00:00: Medical tablet 00 [place] baclofen 0 Yes 10mg QD [address] (LIORESAL) 5-03 daily . [facility] 10 MG 00:00: Medical tablet 00 [place] calcium-vit 2021-0 Yes 1 tab, PO, Memoria [...] tab, PO, l (ferrous 15:16: TID, 0 [place] sulfate) 00 Refill(s) 325 mg oral tablet magnesium 2021-0 Yes 250 mg = 1 Me moria gluconate 4-19 tab, PO, l 250 mg oral 15:16: BID, # 60 H ermann tablet 00 tab, 0 Refill(s) iron 2021-0 Yes 325 mg = 1 Memoria sulfate 4-19 tab, PO, l (ferrous 15:16: TID, 0 [place] sulfate) 00 Refill(s) 325 mg oral tablet magnesium 2021-0 Yes 250 mg = 1 Me moria gluconate 4-19 tab, PO, l 250 mg oral 15:16: BID, # 60 H ermann tablet 00 tab, 0 Refill(s) iron 2021-0 Yes 325 mg = 1 Memoria sulfate 4-19 tab, PO, l (ferrous 15:16: TID, 0 [place] sulfate) 00 Refill(s) 325 mg oral tablet magnesium 2021-0 Yes 250 mg = 1 Me moria gluconate 4-19 tab, PO, l 250 mg oral 15:16: BID, # 60 H ermann tablet 00 tab, 0 Refill(s) iron 2021-0 Yes 325 mg = 1 Memoria sulfate 4-19 tab, PO, l (ferrous 15:16: TID, 0 [place] sulfate) 00 Refill(s) 325 mg oral tablet magnesium 2-0 Yes 250 mg = 1 Me moria gluconate 4-19 tab, PO, l 250 mg oral 15:16: BID, # 60 H ermann tablet 00 tab, 0 Refill(s) iron 2021-0 Yes 325 mg = 1 Memoria sulfate 4-19 tab, PO, l (ferrous 15:16: TID, 0 [place] sulfate) 00 Refill(s) 325 mg oral tablet magnesium 2-0 Yes 250 mg = 1 Me moria gluconate 4-19 tab, PO, l 250 mg oral 15:16: BID, # 60 H ermann tablet 00 tab, 0 Refill(s) iron 2021-0 Yes 325 mg = 1 Memoria sulfate 4-19 tab, PO, l (ferrous 15:16: TID, 0 [place] sulfate) 00 Refill(s) 325 mg oral tablet [...] cap, PO, l oral 15:15: Daily, 0 [place] capsule 00 Refill(s) Centrum Yes 1 tab, [...] cap, PO, l oral 15:15: Daily, 0 [place] capsule 00 Refill(s) Centrum Yes 1 tab, PO, [place] Silver oral 4-19 Daily, # l tablet 15:15: 90 tab, 0 n 00 Refill(s) Ab Low Yes 81 mg = 1 Mem oria Dose 81 mg 4-19 tab, PO, l oral 15:15: Daily, 0 [place] delayed 00 Refill(s) release tablet Fish Oil Yes 1,000 mg = Mem oria 1000 mg 4-19 1 cap, PO, l oral 15:15: Daily, 0 [place] capsule 00 Refill(s) Centrum 0 Yes 1 [...] cap, PO, l oral 15:15: Daily, 0 [place] capsule 00 Refill(s) Centrum Yes 1 tab, PO, [place] Silver oral 4-19 Daily, # l tablet 15:15: 90 tab, 0 n 00 Refill(s) Ab Low Yes 81 mg = 1 Mem oria Dose 81 mg 4-19 tab, PO, l oral 15:15: Daily, 0 [place] delayed 00 Refill(s) release tablet Fish Oil Yes 1,000 mg = Mem oria 1000 mg 4-19 1 cap, PO, l oral 15:15: Daily, 0 [place] capsule 00 Refill(s) Centrum Yes 1 tab, [...] cap, PO, l oral 15:15: Daily, 0 [place] capsule 00 Refill(s) amLODIPine Yes 10 mg [...] tab, PO, l tablet 15:14: Daily, # [place] 00 90 tab, 1 Refill(s) amLODIPine Yes [...] tab, PO, l tablet 15:14: Daily, # [place] 00 90 tab, 1 Refill(s) amLODIPine 2022-0 Yes 10 mg = 1 Me moria 10 mg oral 4-19 tab, PO, l tablet 15:14: Daily, # [place] 00 90 tab, 1 Refill(s) hydrALAZINE 2022-0 [...] tab, PO, l tablet 15:14: Daily, # [place] 00 90 tab, 1 Refill(s) hydrALAZINE 2022-0 Yes 100 mg = 1 Memoria 100 mg oral 4-19 tab, PO, l tablet 15:14: TID, # 90 n 00 tab, 3 Refill(s) furosemide 2022-0 Yes 40 mg = 1 Me moria 40 mg oral 4-19 tab, PO, l tablet 15:14: Daily, # [place] 00 90 tab, 1 Refill(s) amLODIPine Yes [...] tab, PO, l tablet 15:14: Daily, # [place] 00 90 tab, 1 Refill(s) O[place]la 30 Yes 30 mg = 1 Mem oria mg oral 4-19 tab, PO, l tablet 15:13: BID, 0 [place] 00 Refill(s) [place] 30 Yes 30 mg = 1 Mem oria mg oral 4-19 tab, PO, l tablet 15:13: BID, 0 [place] 00 Refill(s) [place] 30 Yes 30 mg = 1 Mem oria mg oral 4-19 tab, PO, l tablet 15:13: BID, 0 [place] 00 Refill(s) [place] 30 Yes 30 mg = 1 Mem oria mg oral 4-19 tab, PO, l tablet 15:13: BID, 0 [place] 00 Refill(s) [place] 30 Yes 30 mg = 1 Mem oria mg oral 4-19 tab, PO, l tablet 15:13: BID, 0 [place] 00 Refill(s) [place] 30 Yes 30 mg = 1 Mem oria mg oral 4-19 tab, PO, l tablet 15:13: BID, 0 [place] 00 Refill(s) baclofen Yes = 1 tab, Me moria mg oral 3-16 PO, QPM, l tablet 14:40: PRN [place] 00 NEEDED FOR SPASMS, # 90 tab, 2 Refill(s), Pharmacy: [id number] baclofen 10 Yes = 1 tab, Me moria mg oral 3-16 PO, QPM, l tablet 14:40: PRN [place] 00 NEEDED FOR SPASMS, # 90 tab, 2 Refill(s), Pharmacy: [id number] baclofen Yes = 1 tab, Me moria mg oral 3-16 PO, QPM, l tablet 14:40: PRN [place] 00 NEEDED FOR SPASMS, # 90 tab, 2 Refill(s), Pharmacy: [facility] ST[facility] baclofen Yes = 1 tab, Me moria mg oral 3-16 PO, QPM, l tablet 14:40: PRN [place] 00 NEEDED FOR SPASMS, # 90 tab, 2 Refill(s), Pharmacy: [facility] ST[facility] baclofen Yes = 1 tab, Me moria mg oral 3-16 PO, QPM, l tablet 14:40: PRN [place] 00 NEEDED FOR SPASMS, # 90 tab, 2 Refill(s), Pharmacy: [id number] baclofen Yes = 1 tab, Me moria mg oral 3-16 PO, QPM, l tablet 14:40: PRN [place] 00 NEEDED FOR SPASMS, # 90 tab, 2 Refill(s), Pharmacy: [facility] baclofen No = 1 tab, Me moria mg oral 9-01 PO, QPM, l tablet 14:41: PRN [place] 00 NEEDED FOR SPASMS, # 90 tab, 2 Refill(s), Pharmacy: [facility] ST[facility] baclofen No = 1 tab, Me moria mg oral 9-01 PO, QPM, l tablet 14:41: PRN [place] 00 NEEDED FOR SPASMS, # 90 tab, 2 Refill(s), [facility]acy: [facility] baclofen No = 1 tab, Me moria mg oral 9-01 PO, QPM, l tablet 14:41: PRN [place] 00 NEEDED FOR SPASMS, # 90 tab, 2 Refill(s), Pharmacy: [facility] baclofen No = 1 tab, Me moria mg oral 9-01 PO, QPM, l tablet 14:41: PRN [place] 00 NEEDED FOR SPASMS, # 90 tab, 2 Refill(s), Pharmacy: [facility] [id number] baclofen No = 1 tab, Me moria mg oral 9-01 PO, QPM, l tablet 14:41: PRN [place] 00 NEEDED FOR SPASMS, # 90 tab, 2 Refill(s), Pharmacy: [id number] baclofen No = 1 tab, Me moria mg oral 9-01 PO, QPM, l tablet 14:41: PRN [place] 00 NEEDED FOR SPASMS, # 90 tab, 2 Refill(s), Pharmacy: [facility] [id number] baclofen No 10 mg = 1 M emoria mg oral 6-10 tab, PO, l tablet 16:32: QPM, PRN [place] 00 Spasms, # 30 tab, 2 Refill(s), [id number] baclofen No 10 mg = 1 M emoria mg oral 6-10 tab, PO, l tablet 16:32: QPM, PRN [place] 00 Spasms, # 30 tab, 2 Refill(s), [id number] baclofen No 10 mg = 1 M emoria mg oral 6-10 tab, PO, l tablet 16:32: QPM, PRN [place] 00 Spasms, # 30 tab, 2 Refill(s), [id number] baclofen No 10 mg = 1 M emoria mg oral 6-10 tab, PO, l tablet 16:32: QPM, PRN [place] 00 Spasms, # 30 tab, 2 Refill(s), Pharmacy: [id number] baclofen No 10 mg = 1 M emoria mg oral 6-10 tab, PO, l tablet 16:32: QPM, PRN [place] 00 Spasms, # 30 tab, 2 Refill(s), Pharmacy: [facility] #[id number] baclofen No 10 mg = 1 M emoria mg oral 6-10 tab, PO, l tablet 16:32: QPM, PRN [place] 00 Spasms, # 30 tab, 2 Refill(s), [facility][id number] Levemir Yes 130, Memoria FlexPen 4-16 SUB-Q, 0 l 15:32: Refill(s) [place] Levemir Yes 130, Memoria FlexPen 4-16 SUB-Q, 0 l 15:32: Refill(s) [place] Levemir Yes 130, Memoria FlexPen 4-16 SUB-Q, 0 l 15:32: Refill(s) [place] Levemir Yes 130, Memoria FlexPen 4-16 SUB-Q, 0 l 15:32: Refill(s) [place] Levemir Yes 130, Memoria FlexPen 4-16 SUB-Q, 0 l 15:32: Refill(s) [place] 00 Levemir Yes 130, Memoria FlexPen 4-16 SUB-Q, 0 l 15:32: Refill(s) lisinopril 2020-0 Yes 20 mg = 1 Me moria 20 mg oral 4-17 tab, PO, l tablet 15:50: Daily, # [place] 00 30 tab, 0 Refill(s) lisinopril 2020-0 Yes 20 mg = 1 Me moria 20 mg oral 4-17 tab, PO, l tablet 15:50: Daily, # [place] 00 30 tab, 0 Refill(s) lisinopril 2020-0 Yes 20 mg = 1 Me moria 20 mg oral 4-17 tab, PO, l tablet 15:50: Daily, # [place] 00 30 tab, 0 Refill(s) lisinopril 2020-0 [...] # [place] 00 30 tab, 0 Refill(s) Omeprazole Omeprazole No QD Omeprazole 40 MG [...] MCG t} 50 MCG (1999) (1999) (1999) Iron 325 Iron 325 No 1{table QD Iron 325 (65 Fe) MG (65 Fe) MG t} (65 Fe) MG Magnesium Magnesium No 1{table QD Magnesium 250 MG 250 MG t_with_ 250 MG a_meal} Rosuvastati Rosuvastati No Rosuvastat n Calcium n Calcium in Calcium 10 MG 10 MG 10 MG FOUNDD No 1{table QD Ab Aspirin EC Aspirin [...] Ultra Blue Ultra Blue - - - FOUNDD No 1{table QD Ab Aspirin EC Aspirin [...] 50 MCG (1999 UT) (1999 UT) (1999) Eliquis 5 Eliquis 5 No 1{table [...] t} 50 MCG (1999 UT) (1999) (1999) amLODIPine amLODIPine No amLODIPine Besylate [...] FlexTouch FlexTouch [place] it - [facility] BD Pen BD Pen No BD Pen [...] MCG t} 50 MCG (1999) (1999) (1999) Iron 325 Iron 325 No 1{table [...] 50 MCG (1999 UT) (1999 UT) (1999) hydrALAZINE hydrALAZINE No TID [...] Centrum Silver - Silver - Silver - Eliquis 5 Eliquis 5 Eliquis 5 mg 5 mg mg 5 mg 11-05 mg 5 mg 00:00 :00 Vital Signs Vital Name Observation Time Observation Value Comments Source HEIGHT 2022-04-08 23:40:00 203.2 cm WEIGHT 2022-04-08 23:40:00 157.852 kg HEIGHT 2022-04-08 23:40:00 203.2 cm WEIGHT 2022-04-08 23:40:00 157.852 kg height 2022-04-06 10:50:00 77.5 [in_i] [facility] weight 2022-04-06 10:50:00 363.6 [lb_av] [facility] temperature 2022-04-06 10:50:00 97.3 [degF] [facility] bmi 2022-04-06 10:50:00 42.56 kg/m2 [facility] oximetry 2022-04-06 10:50:00 97 % [facility] respiratory rate 2022-04-06 10:50:00 17 /min Comm on [facility] blood pressure 2022-04-06 10:50:00 133 mm[Hg] [facility] - systolic [facility] blood pressure 2022-04-06 10:50:00 67 mm[Hg] [facility] - diastolic [facility] WEIGHT 2022-02-25 05:03:00 166.243 kg WEIGHT 2022-02-21 05:52:00 169.736 kg WEIGHT 2022-02-20 05:23:00 168.239 kg WEIGHT 2022-02-25 05:03:00 166.243 kg WEIGHT 2022-02-21 05:52:00 169.736 kg WEIGHT 2022-02-20 05:23:00 168.239 kg height 2022-02-17 11:50:00 77.5 [in_i] [facility] weight 2022-02-17 11:50:00 366.2 [lb_av] [facility] bmi 2022-02-17 11:50:00 42.86 kg/m2 [facility] height 2022-01-19 13:30:00 77.5 [in_i] Common [facility] weight 2022-01-19 13:30:00 366.2 [lb_av] [facility] temperature 2022-01-19 13:30:00 97.2 [degF] [facility] bmi 2022-01-19 13:30:00 42.86 kg/m2 [facility] oximetry 2022-01-19 13:30:00 98 % [facility] respiratory rate 2022-01-19 13:30:00 18 /min Comm on [facility] blood pressure 2022-01-19 13:30:00 138 mm[Hg] [facility] - systolic [facility] blood pressure 2022-01-19 13:30:00 70 mm[Hg] [facility] diastolic [facility] height 2022-01-04 10:00:00 77.5 [in_i] [facility] weight 2022-01-04 10:00:00 365.3 [lb_av] [facility] temperature 2022-01-04 10:00:00 97.9 [degF] [facility] bmi 2022-01-04 10:00:00 42.76 kg/m2 [facility] oximetry 2022-01-04 10:00:00 98 % [facility] respiratory rate 2022-01-04 10:00:00 18 /min Comm on [facility] blood pressure 2022-01-04 10:00:00 137 mm[Hg] [facility] blood pressure 2022-01-04 10:00:00 81 mm[Hg] [facility] height 2021-11-04 10:30:00 77.5 [in_i] [facility] weight 2021-11-04 10:30:00 365 [lb_av] [facility] temperature 2021-11-04 10:30:00 97.3 [degF] [facility] bmi 2021-11-04 10:30:00 42.72 kg/m2 Common S [facility] oximetry 2021-11-04 10:30:00 94 % Common [facility] respiratory rate 2021-11-04 10:30:00 18 /min Comm on [facility] blood pressure 2021-11-04 10:30:00 122 mm[Hg] [facility] blood pressure 2021-11-04 10:30:00 76 mm[Hg] [facility] height 2021-11-04 10:40:00 77.5 [in_i] Common S [facility] weight 2021-11-04 10:40:00 365 [lb_av] [facility] temperature 2021-11-04 10:40:00 97.3 [degF] [facility] bmi 2021-11-04 10:40:00 42.72 kg/m2 [facility] 2021-11-04 10:40:00 94 % Common S [facility] respiratory rate 2021-11-04 10:40:00 18 /min Comm on [facility] blood pressure 2021-11-04 10:40:00 122 mm[Hg] [facility] - systolic [facility] blood pressure 2021-11-04 10:40:00 76 mm[Hg] [facility] height 2021-10-04 09:50:00 80 [in_i] Common [facility] weight 2021-10-04 09:50:00 365.0 [lb_av] [facility] temperature 2021-10-04 09:50:00 96.9 [degF] [facility] bmi 2021-10-04 09:50:00 40.09 kg/m2 [facility] oximetry 2021-10-04 09:50:00 97 % [facility] respiratory rate 2021-10-04 09:50:00 18 /min Comm on [facility] blood pressure 2021-10-04 09:50:00 139 mm[Hg] [facility] systolic [facility] blood pressure 2021-10-04 09:50:00 63 mm[Hg] [facility] diastolic [facility] HEIGHT 2021-09-29 08:12:00 203.2 cm WEIGHT 2021-09-29 08:12:00 167.831 kg HEIGHT 2021-09-29 08:12:00 203.2 cm WEIGHT 2021-09-29 08:12:00 167.831 kg HEIGHT 2021-09-23 15:02:00 203.2 cm WEIGHT 2021-09-23 15:02:00 167.831 kg HEIGHT 2021-09-23 15:02:00 203.2 cm WEIGHT 2021-09-23 15:02:00 167.831 kg height 2021-08-31 11:20:00 80 [in_i] [facility] weight 2021-08-31 11:20:00 371.2 [lb_av] [facility] temperature 2021-08-31 11:20:00 97.9 [degF] [facility] bmi 2021-08-31 11:20:00 40.77 kg/m2 [facility] oximetry 2021-08-31 11:20:00 97 % [facility] respiratory rate 2021-08-31 11:20:00 17 /min Comm on [facility] blood pressure 2021-08-31 11:20:00 132 mm[Hg] [facility] - systolic [facility] blood pressure 2021-08-31 11:20:00 75 mm[Hg] [facility] - diastolic [facility] height 2021-05-17 09:20:00 80 [in_i] Common [facility] weight 2021-05-17 09:20:00 371.5 [lb_av] Common [facility] temperature 2021-05-17 09:20:00 97.8 [degF] Common [facility] bmi 2021-05-17 09:20:00 40.81 kg/m2 [facility] oximetry 2021-05-17 09:20:00 98 % [facility] respiratory rate 2021-05-17 09:20:00 19 /min Comm on [facility] blood pressure 2021-05-17 09:20:00 138 mm[Hg] [facility] - systolic [facility] blood pressure 2021-05-17 09:20:00 68 mm[Hg] [facility] - diastolic [facility] height 2021-02-16 08:50:00 80 [in_i] [facility] weight 2021-02-16 08:50:00 378.3 [lb_av] [facility] temperature 2021-02-16 08:50:00 97.7 [degF] [facility] bmi 2021-02-16 08:50:00 41.55 kg/m2 [facility] oximetry 2021-02-16 08:50:00 97 % [facility] respiratory rate 2021-02-16 08:50:00 18 /min Comm on [facility] blood pressure 2021-02-16 08:50:00 133 mm[Hg] [facility] - systolic [facility] blood pressure 2021-02-16 08:50:00 65 mm[Hg] [facility] - diastolic [facility] height 2020-11-24 08:40:00 80 [in_i] Common S pirit - [facility] weight 2020-11-24 08:40:00 372.8 [lb_av] [facility] temperature 2020-11-24 08:40:00 96.8 [degF] Common S pirit - [facility] bmi 2020-11-24 08:40:00 40.95 kg/m2 [facility] oximetry 2020-11-24 08:40:00 96 % Common S [facility] respiratory rate 2020-11-24 08:40:00 20 /min Comm on [facility] blood pressure 2020-11-24 08:40:00 138 mm[Hg] [facility] - systolic [facility] blood pressure 2020-11-24 08:40:00 82 mm[Hg] [facility] - diastolic [facility] height 2020-11-24 09:00:00 80 [in_i] Common S [facility] weight 2020-11-24 09:00:00 372.8 [lb_av] [facility] temperature 2020-11-24 09:00:00 96.8 [degF] Common [facility] bmi 2020-11-24 09:00:00 40.95 kg/m2 Common [facility] oximetry 2020-11-24 09:00:00 96 % [facility] 2020-11-24 09:00:00 20 /min Comm on [facility] blood pressure 2020-11-24 09:00:00 138 mm[Hg] [facility] - systolic [facility] blood pressure 2020-11-24 09:00:00 82 mm[Hg] [facility] - diastolic [facility] Systolic blood 2022-02-26 07:00:00 169 mm[Hg] [facility] Diastolic blood 2022-02-26 07:00:00 77 mm[Hg] [facility] Heart rate 2022-02-26 07:00:00 95 /min [facility] Body temperature 2022-02-26 07:00:00 36.67 Saumya [facility] Respiratory rate 2022-02-26 07:00:00 20 /min [facility] Oxygen saturation in 2022-02-26 07:00:00 97 /min [facility] Arterial blood by Medical Ce [facility]ter Pulse oximetry Body weight 2022-02-25 05:03:00 166.243 kg [facility] BMI 2022-02-25 05:03:00 40.26 kg/m2 [facility] Heart rate 2021-09-30 12:01:00 92 /min [facility] Systolic blood 2021-09-30 12:00:00 153 mm[Hg] [facility] Diastolic blood 2021-09-30 12:00:00 68 mm[Hg] [facility] Body temperature 2021-09-30 12:00:00 36.17 Saumya [facility] Respiratory rate 2021-09-30 12:00:00 17 /min [facility] Oxygen saturation in 2021-09-30 12:00:00 95 /min [facility] Arterial blood by Medical [facility] Pulse oximetry Body height 2021-09-29 08:12:00 203.2 cm [facility] Body weight 2021-09-29 08:12:00 167.831 kg [facility] BMI 2021-09-29 08:12:00 40.65 kg/m2 [facility] Systolic (mm Hg) 2021-06-15 15:07:00 Car jose [place] Diastolic (mm Hg) 2021-06-15 15:07:00 Mem orial [place] Heart Rate 2021-06-15 15:07:00 [facility] [place] Respitory Rate 2021-06-15 15:07:00 Memori [facility] [place] Height 2021-06-15 15:07:00 203.2 cm Kylie Dawkins Weight 2021-06-15 15:07:00 Kylie Dawkins BMI Calculated 2021-06-15 15:07:00 Rigoberto Sutton Procedures Procedure Date / Time Performing Clinician Source Performed POCT-GLUCOSE METER 2022-02-26 07:37:00 Doc [facility] MAGNESIUM 2022-02-26 04:37:00 Luis Lay [facility] POCT-GLUCOSE METER 2022-02-25 22:51:00 Doc [facility] POCT-GLUCOSE METER 2022-02-25 21:36:00 Doc [facility] POCT-GLUCOSE METER 2022-02-25 17:18[facility] WHOLE BODY PI 2022-02-25 13:31:00 Yvonne Bolton [facility] POCT-GLUCOSE METER 2022-02-25 11:23:00 [facility] BASIC METABOLIC PANEL 2022-02-25 10:28:00 [facility] POCT-GLUCOSE METER 2022-02-25 08:03:00 [facility] SARS-COV2/RT-PCR ([facility] & 2022-02-25 07:52:00 Garret Lovett [facility] REF LABS) [facility] CBC W/PLT COUNT & AUTO 2022-02-25 04:35:00 Doc [facility] BASIC METABOLIC PANEL 2022-02-25 04:35:00 [facility] CBC W/PLT COUNT & AUTO 2022-02-25 04:35:00 Doc [facility] POCT-GLUCOSE METER 2022-02-24 21:12[facility] 2022-02-24 17:46:00 [facility] POCT-GLUCOSE METER 2022-02-24 11:32:00 Doc [facility] POCT-GLUCOSE METER 2022-02-24 08:24:00 Doc [facility] CBC W/PLT COUNT & AUTO 2022-02-24 04:59:00 Doc [facility] BASIC METABOLIC PANEL 2022-02-24 04:59:00 Doc [facility] HEPATIC FUNCTION PANEL 2022-02-24 04:59:00 [facility] CBC W/PLT COUNT & AUTO 2022-02-24 04:59:00 Doc Eligio [facility] POCT-GLUCOSE METER 2022-02-23 19:54:00 Doc [facility] POCT-GLUCOSE METER 2022-02-23 17:19:00 oDc [facility] XR CHEST 1 VIEW PORTABLE / 2022-02-23 16:05:00 Eligio Roach [facility] SODIUM, RANDOM URINE 2022-02-23 13:21:00 Nicki Scott [facility] POCT-GLUCOSE METER 2022-02-23 12:03:00 Doc [facility] TRANSESOPHAGEAL ECHO 2022-02-23 09:33:22 Doc [facility] POCT-GLUCOSE METER 2022-02-23 07:09:00 Doc [facility] CBC W/PLT COUNT & AUTO 2022-02-23 04:23:00 Eligio Roach [facility] BASIC METABOLIC PANEL 2022-02-23 04:23:00 Dco [facility] CBC W/PLT COUNT & AUTO 2022-02-23 04:23:00 Doc [facility] (CELLAVISION MANUAL DIFF) 2022-02-23 04:23:00 Eligio Roach [facility] POCT-GLUCOSE METER 2022 21:19:00 Doc [facility] POCT-GLUCOSE METER 2022 17:14:00 Doc [facility] POCT-GLUCOSE METER 2022 14:47:00 Doc [facility] REPORT OF PROCEDURE - 2022 14:08:04 Geneva Jhaveri [facility] ENDOSCOPY [facility] EGD 2022 13:49:00 Geneva Jhaveri [facility] (ESOPHAGOGASTRODUODENOSCOP [facility] Y) POCT-GLUCOSE METER 2022 12:10:00 Doc [facility] COLOR-FLOW MAPPING 2022 11:59:49 Doc [facility] CONT WAVE PULSED DOPPLER 2022 11:59:49 Doc [facility] POCT-GLUCOSE METER 2022 08:29:00 Doc [facility] CBC W/PLT COUNT & AUTO 2022 04:35:00 [facility] BASIC METABOLIC PANEL 2022 04:35:00 Doc [facility] ALPHA FETOPROTEIN (AFP), 2022 04:35:00 Jeremy Avila [facility] TUMOR MARKER [facility] CBC W/PLT COUNT & AUTO 2022 04:35:00 Doc [facility] POCT-GLUCOSE METER 2022-02-21 23:15:00 Doc [facility] POCT-GLUCOSE METER 2022-02-21 21:26:00 Doc [facility] POCT-GLUCOSE METER 2022-02-21 17:27:00 Doc [facility] HEPATITIS B CORE ANTIBODY, 2022-02-21 16:20:00 Jeremy Avila [facility] TOTAL [facility] HEPATITIS A ANTIBODY, IGG 2022-02-21 16:20:00 Jeremy [facility]ila [facility] HEPATITIS B SURFACE 2022-02-21 16:20:00 Margarita [facility] L ukes ANTIBODY [facility] HEPATITIS B SURFACE 2022-02-21 16:20:00 Margarita [facility] L [facility] ANTIGEN [facility] HEPATITIS C ANTIBODY 2022-02-21 16:20:00 Margarita [facility] FERRITIN 2022-02-21 16:20:00 Margarita [facility] CERULOPLASMIN 2022-02-21 16:19:00 Margarita [facility] IRON, TIBC, % SAT. 2022-02-21 16:19:00 Jeremy Avila [facility] (WITHOUT FERRITIN) [facility] r [id number]\\, 2022-02-21 16:19:00 Margarita [facility] ANTI-NUCLEAR ANTIBODY 2022-02-21 16:19:00 Margarita [facility] (ARACELIS) [facility] ANTI-MITOCHONDRIAL AB, 2022-02-21 16:19:00 Jeremy Avila [facility] REFLEX TO TITER [facility] ACTIN (SMOOTH MUSCLE) 2022-02-21 16:19:00 [facility] ANTIBODY, IGG [facility] PHOSPHATIDYLETHANOL, BLOOD 2022-02-21 16:19:00 Jeremy Avila [facility] MITOCHONDRIAL AB SCREEN 2022-02-21 16:19:00 Margarita [facility] MITOCHONDRIAL AB TITER 2022-02-21 16:19:00 Margarita [facility] POCT-GLUCOSE METER 2022-02-21 12:53:00 Doc [facility] POCT-GLUCOSE METER 2022-02-21 07:27:[address] [facility] [address] ABDOMEN/PELVIS WITH IV 2022-02-21 01:11:00 Avelina Das [facility] POCT-GLUCOSE METER 2022-02-20 20:27:00 Doc [facility] POCT-GLUCOSE METER 2022-02-20 17:29:00 Doc [facility] URINALYSIS W/ REFLEX URINE 2022-02-20 16:55:00 Avelina Das [facility] POCT-GLUCOSE METER 2022-02-20 12:19:00 Doc [facility] POCT-GLUCOSE METER 2022-02-20 08:18[facility] 2022-02-20 06:02:00 Bony [facility] HEPATIC FUNCTION PANEL 2022-02-20 06:02[facility]-20 06:02:00 Bony, [facility] CBC W/PLT COUNT & AUTO 2022-02-20 03:25:00 Bony, [facility] DIFFERENTIAL [facility] CBC W/PLT COUNT & AUTO 2022-02-20 03:25:00 Bony, [facility] DIFFERENTIAL [facility] POCT-GLUCOSE METER 2022-02-19 21:03:00 Doc [facility] POCT-GLUCOSE METER 2022-02-19 17:26:00 [facility] RES[facility]IR[facility] PANEL 2022-02-19 13:20:00 Lakeisha Villarreal [facility] POCT-GLUCOSE METER 2022-02-19 12:24:00 [facility]SE [facility]ER 2022-02-19 07:42:00 [facility] BASIC METABOLIC PANEL 2022-02-19 04:31:00 Bony, [facility] HEPATIC FUNCTION PANEL 2022-02-19 04:31:00 Garret Lovett [facility] MAGNESIUM 2022-02-19 04:31:00 Bony [facility] CBC W/PLT COUNT & AUTO 2022-02-19 04:31:00 [facility] DIFFERENTIAL [facility] CBC W/PLT COUNT & AUTO 2022-02-19 04:31:00 Bony, [facility] DIFFERENTIAL [facility] POCT-GLUCOSE METER 2022-02-18 20:51:00 Doc [facility] VANCOMYCIN LEVEL, RANDOM 2022-02-18 20:38:00 [place] [facility] POCT-GLUCOSE METER 2022-02-18 18:08:[address] [facility] [address] CHEST WITHOUT IV 2022-02-18 17:00:00 [facility] PNEUMONIAE ANTIGEN 2022-02-18 16:26:00 [facility] E[facility] W/ DOPPLER 2022-02-18 14:12:40 Robert Piña [facility] (CW/PW/COLOR) [facility] POCT-GLUCOSE METER 2022-02-18 13:28:00 Doc [facility] SARS-COV2/RT-PCR ([facility] & 2022-02-18 10:42:00 [facility] BLOOD CULTURE 2022-02-18 10:42:00 Eduin [facility] BLOOD CULTURE 2022-02-18 10:16:00 Eduin [facility] XR CHEST 1 VIEW PORTABLE / 2022-02-18 08:08:[address] [facility] PROTHROMBIN TIME/INR 2022-02-18 04:23:00 Bony [facility] BASIC METABOLIC PANEL 2022-02-18 04:22:00 Bony [facility] HEPATIC FUNCTION PANEL 2022-02-18 04:22:00 Bony, [facility] HEMOGLOBIN A1C 2022-02-18 04:22:00 Bony, [facility] LIPID PANEL 2022-02-18 04:22:00 Bony, [facility] MAGNESIUM 2022-02-18 04:22:00 Bony, [facility] PHOSPHORUS 2022-02-18 04:22:00 Bony, [facility] CBC W/PLT COUNT & AUTO 2022-02-18 04:22:00 Bony, [facility] DIFFERENTIAL [facility] CBC W/PLT COUNT & AUTO 2022-02-18 04:22:00 Bony, [facility] DIFFERENTIAL [facility] 2D ECHO W/ DOPPLER 2021-09-30 09:27:27 Lilian Deleon [facility] (CW/PW/COLOR) [facility] POCT-GLUCOSE METER 2021-09-30 06:55:00 Lilian Deleon [facility] XR CHEST 1 VIEW PORTABLE / 2021-09-30 05:37:00 Joseph Rodriguez [facility] BASIC METABOLIC PANEL 2021-09-30 04:22:00 Joseph Rodriguez [facility] CBC (HEMOGRAM ONLY) 2021-09-30 04:22:00 Joseph Rodriguez [facility] ECG 12-LEAD 2021-09-30 03:41:43 [facility] PO[facility]SE METER 2021-09-29 20:57:00 Lilian Deleon [facility] POCT-ACT 2021-09-29 16:03:00 Lilian Deleon [facility] POCT-GLUCOSE METER 2021-09-29 16:00:00 Lilian Deleon [facility] [facility] ECG 12-LEAD 2021-09-29 15:42:23 JeanaemilyJoseph [facility] ECG 12-LEAD 2021-09-29 15:42:23 Unknown, Hl7 [facility] PREPARE RBC 2021-09-29 15:30:00 Lilian Deleon [facility] POCT-ACT 2021-09-29 15:00:00 Lilian Deleon [facility] POCT-ACT 2021-09-29 14:01:00 Lilian Deleon [facility] IMPLANTATION, AORTIC 2021-09-29 11:28:00 Lilian Deleon [facility] VALVE, TRANSCATHETER [facility] TRANSESOPHAGEAL ECHO 2021-09-29 10:44:47 Lilian Deleon [facility] CONT WAVE PULSED DOPPLER 2021-09-29 10:23:49 Lilian Deleon [facility] COLOR-FLOW MAPPING 2021-09-29 10:23:48 Lilian Deleon [facility] ABORH, MANUAL 2021-09-29 09:00:00 Lilian Deleon [facility] CARDIAC CATH REPORT - SCAN 2021-09-29 00:00:00 Provider, Edis [facility] CBC W/PLT COUNT & AUTO 2021-09-23 15:11:00 Lilian Deleon [facility] DIFFERENTIAL [facility] COMPREHENSIVE METABOLIC 2021-09-23 15:11:00 Lilian Deleon [facility] PANEL [facility] B-TYPE NATRIURETIC FACTOR 2021-09-23 15:11:00 Lilian Deleon [facility] (BNP) [facility] PROTHROMBIN TIME/INR 2021-09-23 15:11:00 Lilian Deleon [facility] TYPE AND SCREEN, AUTOMATED 2021-09-23 15:11:00 Lilian Deleon [facility] CBC W/PLT COUNT & AUTO 2021-09-23 15:11:00 Lilian Deleon [facility] Plan of Care Planned Activity Planned [...] [facility] 00:00:00 measurement (procedure) [facility] [code = 53754480] Future Scheduled 2021-09-[address] [facility] Test 00:00:00 measurement (procedure) [facility] [code = 23931975] Future Scheduled 2021-09-[address] [facility] Test 00:00:00 measurement (procedure) [facility] [code = 88033479] Future Scheduled 2021-09-[address] [facility] Test 00:00:00 measurement (procedure) [facility] [code = 53560609] Future Scheduled 2021-05-25 COVID-19 VACCINE (4 - [...] screening Medical C enter (procedure) [code = 671838376] Future Scheduled 2012-02-[address] [facility] Test 00:00:00 aneurysm screening Medical C enter (procedure) [code = 034979553] Future Scheduled 2012-02-[address] [facility] Test 00:00:00 aneurysm screening Medical C enter (procedure) [code = 345884069] Future Scheduled 1997 SHINGLES VACCINES ([address] [facility] Test 00:00:00 2) [code = SHINGLES [facility] Center VACCINES (1 of 2)] [...] Lukes Test 00:00:00 2) [code = SHINGLES [facility] Center VACCINES (1 of 2)] [...] 00:00:00 examination Medical Center (regime/therapy) [code = 974458451] Future Scheduled 1957 Urine screening for [facility] Test 00:00:00 protein (procedure) Medical Center [code = 330185568] Future Scheduled 1957 DIABETIC EYE EXAM [code [facility] Test 00:00:00 = DIABETIC EYE EXAM] Medical Center Future Scheduled [address] [facility] 00:[facility]:00 examination Medical Center (regime/therapy) [code = 036388054] Future Scheduled 1957 Urine screening for [facility] Test 00:00:00 protein (procedure) Medical Center [code = 738052575] Future Scheduled 1957 DIABETIC EYE EXAM [code [facility] Test 00:00:00 = DIABETIC EYE EXAM] Medical Center Future Scheduled [address] [facility] Test 00:00:00 examination Medical Center (regime/therapy) [code = 568177735] Future Scheduled 1957 Urine screening for [facility] Test 00:00:00 protein (procedure) Medical Center [code = 730080468] Future Scheduled 1957 DIABETIC EYE EXAM [code [facility] Test 00:00:00 = DIABETIC EYE EXAM] Medical Center Future Scheduled [address] [facility] Test 00:00:00 examination Medical Center (regime/therapy) [code = 513792877] Future Scheduled 1957 Urine screening for [facility] Test 00:00:00 protein (procedure) Medical Center [code = 213206347] Future Scheduled 1953 PNEUMOCOCCAL 65+ YRS ([address] [facility] Test 00:00:00 - PCV) [code = Medical Cente r PNEUMOCOCCAL 65+ YRS (1 - PCV)] Future Scheduled 1947 COVID-19 VACCINE (#1) [facility] 00:00:00 [code = COVID-[address] VACCINE (#1)] Future Scheduled 1947 CT Colonography (combo) [facility] Test 00:00:00 [code = CT Colonography [facility] Center (combo)] Future Scheduled 1947 Screening for malignant [facility] Test 00:00:00 neoplasm of colon Medical Ce nter (procedure) [code = 563747881] Future Scheduled 1947 Screening for malignant [facility] Test 00:00:00 neoplasm of colon Medical Ce nter (procedure) [code = 715179569] Future Scheduled 1947 Screening for malignant [facility] Test 00:00:00 neoplasm of colon Medical Ce nter (procedure) [code = 225342590] Future Scheduled 1947 Screening for malignant [facility] Test 00:00:00 neoplasm of colon Medical Ce nter (procedure) [code = 554980505] Future Scheduled 1947 Sigmoidoscopy [code = [facility] 00[facility] Future Scheduled 1947 CT Colonography (combo) [facility] Test 00:00:00 [code = CT [facility] (combo[facility] Future Scheduled 1947 Screening for malignant [facility] Test 00:00:00 neoplasm of colon Medical Ce nter (procedure) [code = 568148493] Future Scheduled 1947 Screening for malignant [facility] Test 00:00:00 neoplasm of colon Medical Ce nter (procedure) [code = 355518814] Future Scheduled 1947 Screening for malignant [facility] Test 00:00:00 neoplasm of colon Medical Ce nter (procedure) [code = 996192285] Future Scheduled 1947 Screening for malignant [facility] Test 00:00:00 neoplasm of colon Medical Ce nter (procedure) [code = 069175935] Future Scheduled 1947 Sigmoidoscopy [code = [facility] 00:00:00 Sigmoidoscopy] Medical Cente r Future Scheduled 1947 CT Colonography (combo) [facility] Test 00:00:00 [code = CT Colonography [facility] (combo)] Future Scheduled 1947 Screening for malignant [facility] Test 00:00:00 neoplasm of colon Medical Ce nter (procedure) [code = 348050440] Future Scheduled 1947 Screening for malignant [facility] Test 00:00:00 neoplasm of colon Medical Ce nter (procedure) [code = 345621423] Future Scheduled 1947 Screening for malignant [facility] Test 00:00:00 neoplasm of colon Medical Ce nter (procedure) [code = 159914336] Future Scheduled 1947 Screening for malignant [facility] Test 00:00:00 neoplasm of colon Medical Ce nter (procedure) [code = 379953873] Future Scheduled 1947 Sigmoidoscopy [code = [facility] 00:00:00 Sigmoidoscopy] Medical Cente r Future Scheduled 1947 CT Colonography (combo) [facility] Test 00:00:00 [code = CT Colonography [facility] Center (combo)] Future Scheduled 1947 Screening for malignant [facility] Test 00:00:00 neoplasm of colon Medical Ce nter (procedure) [code = 294989443] Future Scheduled 1947 Screening for malignant [facility] Test 00:00:00 neoplasm of colon Medical Ce nter (procedure) [code = 180893242] Future Scheduled 1947 Screening for malignant [facility] Test 00:00:00 neoplasm of colon Medical Ce nter (procedure) [code = 690157405] Future Scheduled 1947 Screening for malignant [facility] Test 00:00:00 neoplasm of colon Medical Ce nter (procedure) [code = 925292860] Future Scheduled 1947 Sigmoidoscopy [code = [facility] 00:00:00 Sigmoidoscopy] Medical Cente r Encounters Start End Encounter Admission Attending Care Care Encounter Source Date/Time Date/Time Type Type Clinicians Facility Department ID 2022-10-10 Outpatient [place], STLMLC STLMLC [id number] Common 11:36:00 Yann [id number] [facility] 2022-04-26 Outpatient West, STLMLC STLMLC [id number] Common 10:34:00 Yann [id number] [facility] 2022-04-04 Outpatient [place], STLMLC STLMLC [id number] Common 09:02:01 Yann [id number] [facility] 2022-03-31 Outpatient West, STLMLC STLMLC [id number] Common 11:10:01 Yann [id number] [facility] 2022-03-11 Outpatient [place], STLMLC STLMLC [id number] Common 16:26:00 Yann [id number] [facility] 2022-02-17 Outpatient [place], STLMLC STLMLC [id number] Common 10:29:01 Yann [id number] [facility] 2022-01-18 Outpatient [place], STLMLC STLMLC [id number] Common 08:51:01 Yann [id number] [facility] 2021-12-31 Outpatient [place], STLMLC STLMLC [id number] Common 10:27:01 Yann [id number] [facility] 2021-05-17 Outpatient [place], STLMLC STLMLC [id number] Common 09:00:01 Yann [facility] 2021-05-14 Outpatient [place], STLMLC STLMLC [id number] Common 10:41:02 Yann [facility] 2021-03-24 Outpatient [place], STLMLC STLMLC [id number] Common 14:26:44 Yann [facility] 2021-03-24 Outpatient [place], STLMLC STLMLC [id number] Common 13:19:52 Yann [id number] [facility] 2021-03-24 Outpatient [place], STLMLC STLC [id number] Common 13:09:16 Yann [id number] [facility] 2021-03-24 Outpatient [place], STLMLC STLMLC [id number] Common 12:43:25 Yann [id number] [facility] 2021-03-24 Outpatient [place], STLMLC STLMLC [id number] Common 12:42:35 Yann [id number] [facility] 2021-03-24 Outpatient [place], STLMLC STLMLC [id number] Common 12:42:21 Yann [id number] [facility] 2021-03-24 Outpatient [place], STLMLC STLC [id number] Common 11:17:23 Yann [id number] [facility] 2021-03-24 Outpatient [place], STLMLC STLC [id number] Common 11:15:43 Yann [id number] [facility] 2021-03-24 Outpatient [place], STLMLC STLC [id number] Common 11:15:21 Yann [id number] [facility] 2021-03-24 Outpatient [place], STLMLC STLC [id number] Common 11:00:50 Yann [id number] [facility] 2023-06-16 2023-06-16 Outpatient MHIE MHIE [id number] Memoria 10:30:00 10:30:00 08 david DeshpandeJuancho 2023-06-16 2023-06-16 Outpatient MHIE MHIE [id number] Memoria 10:30:00 10:30:00 08 david Dawkins 2022-06-15 2022-06-15 Outpatient MHIE MHIE [id number] Memoria 10:00:00 10:00:00 07 david Dawkins 2022-06-15 2022-06-15 Outpatient MHIE MHIE [id number] Memoria 10:00:00 10:00:00 07 david Dawkins 2022-04-08 2022-04-20 [facility] [id number] [facility] 23:18:00 18:40:00 ANGELIKA 2022-04-06 2022-04-06 OFFICE STLC STLC [id number] Co mmon 00:00:00 00:00:00 VISIT Spirit ESTAB PT - [facility] L[facility] 2022-03-16 2022-03-16 (TEL) STLMLC STLMLC [id number] Co mmon 00:00:00 00:00:00 [facility] 2022-03-03 2022-03-03 (TEL) STLMLC STLC [id number] Co mmon 00:00:00 00:00:00 [facility] 2022-03-01 2022-03-01 (TEL) STLMLC STLC [id number] Co mmon 00:00:00 00:00:00 [facility] 2022-02-18 2022-02-26 Hospital ER [facility] [id number] 00:32[facility]00 10:10:00 Encounter Doc [facility] 2022-02-18 2022-02-26 Inpatient ER DOC, [facility] Internal [id number] SLE 00:32:00 10:10:00 [facility] 2022 2022 Anesthesia Leigh Mejia [facility] [id number] 13:59:00 14:24:[address] [facility] 2022 2022 Surgery Shakila [facility] [id number] 13:18:00 14:08:00 [facility] 2022 2022 Travel [facility] [id number] [facility] 00:[facility]00 00:00:00 [facility] 2022-02-17 2022-02-17 [facility] [id number] Co mmon 00:00:00 00:00:00 VISIT EST Spir it PT LEVEL 3 - [facility] 2022-02-17 2022-02-17 (TEL) STLC STLC [id number] Co mmon 00:00:00 00:00:00 Spirit - [facility] 2022-02-16 2022-02-16 (TEL) STLMLC STLMLC [id number] Co mmon 00:00:00 00:00:00 [facility] 2022-02-03 2022-02-03 (TEL) STLMLC STLMLC [id number] Co mmon 00:00:00 00:00:00 [facility] 2022-02-01 2022-02-01 (TEL) STLMLC STLMLC [id number] Co mmon 00:00:00 00:00:00 [facility] 2022-01-19 2022-01-19 (HOSP F/U) STLMLC STLMLC [id number] Common 00:00:00 00:00:00 [facility] 2022-01-17 2022-01-17 (TEL) STLMLC STLMLC [id number] Co mmon 00:00:00 00:00:00 [facility] 2022-01-10 2022-01-10 (TEL) STLMLC STLMLC [id number] Co mmon 00:00:00 00:00:00 [facility] 2022-01-04 2022-01-04 OFFICE STLMLC STLMLC [id number] Co mmon 00:00:00 00:00:00 VISIT [facility] ESTAB [facility] - [facility] 2021-11-04 2021-11-04 OFFICE STLMLC STLMLC [id number] Co mmon 00:00:00 00:00:00 VISIT [facility] ESTAB PT - [facility] 2021-11-04 2021-11-04 SUB ANNUAL STLMLC STLMLC [id number] Common 00:00:00 00:00:00 MCR [facility] WELLNESS - [facility]I VISIT [facility] 2021-10-26 2021-10-26 Telephone Antonino [facility] [id number] 00:00:00 00:00:00 [facility] 2021-10-11 2021-10-11 Documentat Miguel [facility] [id number] 00:00:00 00:00:00 ion Diya Alexis [facility] 2021-10-04 2021-10-04 (HOSP F/U) [facility] [id number] Common 00:00:00 00:00:00 [facility] Follow Up - [facility] 2021-10-01 2021-10-01 (TEL) [facility] [id number] Co mmon 00:00:00 00:00:00 [facility] - [facility] 2021-09-29 2021-09-30 Hospital VALDEMAR Deleon, [facility] [id number] 08:04:00 13:30:00 Encounter [facility] 2021-09-29 2021-09-30 Inpatient VALDEMAR CHINEDUTIFFANIEALSHAWN [facility] Surgery [id number] SLE 08:04:00 13:30:00 [facility] 2021-09-29 2021-09-29 Surgery Adrienne [facility] [id number] 12:28:00 16:43:00 [facility] 2021-09-29 2021-09-29 Anesthesia Ally, [facility] [id number] 11:41:00 15:31:00 Event Geovani [facility] 2021-09-29 2021-09-29 Travel [facility] [id number] [facility] 00:00:00 00:00:00 [facility] 2021-09-23 2021-09-23 Office VALDEMAR Killian [facility] [id number] 15:00:00 15:30:00 Visit Kartik [facility] 2021-09-23 2021-09-23 Outpatient VALDEMAR KILLIAN [facility] [id number] SLE 15:05:44 15:05:44 KARTIK 2021-09-23 2021-09-23 Orders Blayne [facility] [id number] 00:00:00 00:00:00 Only Bernarda [facility] 2021-08-31 2021-08-31 OFFICE STLMLC STLMLC [id number] Co mmon 00:00:00 00:00:00 VISIT [facility] ESTAB PT - [facility] 2021-08-24 2021-08-24 Outpatient LUIS Victor [facility] [id number] [facility] 09:27:00 09:27:00 Olanike [id number] [facility] 2021-08-24 2021-08-24 Outpatient LUIS Victor [facility] [id number] [facility] 09:27:00 09:27:00 Olanike 01 [facility] 2021-08-16 2021-08-16 (TEL) STLMLC STLMLC [id number] Co mmon 00:00:00 00:00:00 [facility] 2021-06-15 2021-06-16 Outpatient nullFlavo MNA [id number] Memoria 15:30:00 04:59:59 r Neurology 06 l Brooks Dawkins 2021-06-15 2021-06-16 Outpatient nullFlavo MNA [id number] Memoria 15:30:00 04:59:59 r Neurology 06 l Brooks Dawkins 2021-06-15 2021-06-15 Outpatient BROWN Paredes MISCHER [id number] 10:30:00 23:59:59 Sam Isabela Dennis 2021-06-15 2021-06-15 Outpatient MHIE MHIE [id number] Memoria 10:30:00 10:30:00 06 david Dawkins 2021-05-17 2021-05-17 OFFICE STLMLC STLMLC [id number] Co mmon 00:00:00 00:00:00 VISIT [facility] ESTAB PT - [facility] 2021-02-16 2021-02-16 OFFICE STLMLC STLMLC [id number] Co mmon 00:00:00 00:00:00 VISIT [facility] ESTAB PT - [facility] 2020-12-15 2020-12-15 (TEL) STLMLC STLMLC [id number] Co mmon 00:00:00 00:00:00 Spirit - [facility] 2020-11-24 2020-11-24 OFFICE STLMLC STLMLC [id number] Co mmon 00:00:00 00:00:00 VISIT [facility] ESTAB PT - [facility] L[facility] 2020-11-24 2020-11-24 SUB ANNUAL STLMLC STLMLC [id number] Common 00:00:00 00:00:00 MCR [facility] WELLNESS - [facility] 2020-10-27 2020-10-27 Outpatient STLMLC STLMLC [id number] Common 00:00:00 00:00:00 [facility] 2020-09-23 2020-09-23 Outpatient STLMLC STLMLC [id number] Common 00:00:00 00:00:00 [facility] 2020-09-17 2020-09-17 Outpatient STLMLC STLMLC [id number] Common 00:00:00 00:00:00 [facility] 2020-08-25 2020-08-25 Outpatient STLMLC STLMLC [id number] Common 00:00:00 00:00:00 [facility] 2020-06-24 2020-06-26 Outside nullFlavo MNA [id number] Memoria 13:59:45 04:59:59 Medical r Neurology 00 l Records Brooks Dawkins 2020-06-24 2020-06-26 Outside nullFlavo MNA [id number] Memoria 13:59:45 04:59:59 Medical r Neurology 00 l Records Brooks Deshpandeann 2020-06-24 2020-06-25 Outpatient MHMISCHER MHMISCHER [id number] 08:59:45 23:59:59 00 2020-06-12 2020-06-13 Outpatient nullFlavo MNA [id number] Memoria 15:30:00 04:59:59 r Neurology 05 l Mahnomenana Deshpandeann 2020-06-12 2020-06-13 Outpatient nullFlavo MNA [id number] Memoria 15:30:00 04:59:59 r Neurology 05 l Mahnomenana Deshpandeann 2020-06-12 2020-06-12 Outpatient ANGELICA ParedesSCHER MHMISCHER [id number] 10:30:00 23:59:59 Sam Collins 2020-06-12 2020-06-12 Ambulatory nullFlavo MNA [id number] Memoria 15:30:00 15:30:00 Pre-Reg r Neurology 04 david Dawkins 2020-06-12 2020-06-12 Ambulatory nullFlavo MNA [id number] Memoria 15:30:00 15:30:00 Pre-Reg r Neurology 04 david Dawkins 2020-06-12 2020-06-12 Outpatient MHIE MHIE [id number] Memoria 10:30:00 10:30:00 05 david Dawkins 2020-06-12 2020-06-12 Outpatient MHIE MHIE [id number] Memoria 10:30:00 10:30:00 04 david Dawkins 2020-06-12 2020-06-12 Outpatient [id number] 10:30:00 10:30:00 Sambhumi Collins 2020-05-18 2020-05-18 Outpatient STLMLC STLMLC [id number] Common 00:00:00 00:00:00 [facility] 2020-04-07 2020-04-07 Outpatient STLMLC STLMLC [id number] Common 00:00:00 00:00:00 [facility] 2020-02-18 2020-02-18 Outpatient STLMLC STLMLC [id number] Common 00:00:00 00:00:00 [facility] 2020-02-06 2020-02-06 Outpatient STLMLC STLMLC [id number] Common 00:00:00 00:00:00 [facility] 2019-11-20 2019-11-20 Outpatient STLMLC STLMLC [id number] Common 00:00:00 00:00:00 [facility] 2019-11-20 2019-11-20 Outpatient STLMLC STLMLC [id number] Common 00:00:00 00:00:00 [facility] 2019-11-20 2019-11-20 Outpatient STLMLC STLMLC [id number] Common 00:00:00 00:00:00 [facility] 2019-08-19 2019-08-19 [facility] [id number] Common 16:15:00 [place] [place] [address] [facility] 2019-08-16 2019-08-16 Out[facility] [id number] Common 09:45:00 09:45:00 [place] [address] [facility] 2019-08-09 2019-08-09 Out[facility] [id number] Common 15:20:00 15:20:00 [place] [address] [facility] 2019-06-14 2019-06-15 Outpatient nullFlavo MNA [id number] Memoria 15:45:00 04:59:59 r Neurology 03 l Brooks Dawkins 2019-06-14 2019-06-15 Outpatient nullFlavo MNA [id number] Memoria 15:45:00 04:59:59 r Neurology 03 l Brooks Dawkins 2019-06-14 2019-06-14 Outpatient ANGELICA ParedesSCHSUMAYA MISCHER [id number] 10:45:00 23:59:59 Sam 03 Dennis 2019-06-14 2019-06-14 Outpatient MHIE MHIE [id number] Memoria 10:45:00 10:45:00 03 david Dawkins 2019-05-23 2019-05-23 Ambulatory nullFlavo MNA [id number] Memoria 14:00:00 14:00:00 Pre-Reg r Neurology 02 l Brooks Dawkins 2019-05-23 2019-05-23 Ambulatory nullFlavo MNA [id number] Memoria 14:00:00 14:00:00 Pre-Reg r Neurology 02 l Brooks Dawkins 2019-05-23 2019-05-23 Outpatient MHIE MHIE [id number] Memoria 09:00:00 09:00:00 02 david Dawkins 2019-05-23 2019-05-23 Outpatient ANGELICA ParedesSCHSUMAYA MISCHER [id number] 09:00:00 09:00:00 Sam Corona Dennis 2019-05-22 2019-05-22 Out[facility] [id number] Common 14:45:00 14:45:00 [place] [address] [facility] 2019-05-13 2019-05-13 Outpatient [facility] [id number] Common 10:33:00 10:33:00 [place] [address] [facility] 2019-05-02 2019-05-02 Outpatient [facility] [id number] Common 16:42:00 16:42:00 [place] [address] [facility] 2019-04-29 2019-04-29 Outpatient [facility] [id number] Common 08:36:00 08:36:00 [place] [address] [facility] 2019-04-24 2019-04-24 Outpatient [facility] [id number] Common 13:15:00 13:15:00 [place] [address] [facility] 2019-04-23 2019-04-23 Outpatient [facility] [id number] Common 15:22:00 15:22:00 [place] [address] [facility] 2019-03-13 2019-03-13 Outpatient [facility] [id number] Common 13:30:00 13:30:00 [place] [address] [facility] 2018-05-17 2018-05-17 Outpatient MHIE MHIE [id number] Memoria 09:00:00 09:00:00 david Dawkins 2018-05-17 2018-05-17 Outpatient MHIE MHIE [id number] Memoria 09:00:00 09:00:00 david Dawkins 2017-05-18 2017-05-18 Outpatient MHIE MHIE [id number] Memoria 09:00:00 09:00:00 david Dawkins 2017-05-18 2017-05-18 Outpatient MHIE MHIE [id number] Memoria 09:00:00 09:00:00 david Dawkins Results Test Description Test Time Test Comments Results Result [facility] e Comments RAD, SACROILIAC 2022-04-27 Reason for JOINTS, MIN 3 5 exam:->evaluate for VIEWS 08:10:00 arthritisShould this be performed at the [facility] - bedside?->Yes MEDICAL CENTERName: BILLY FLAHERTY : [...] Reference Range Interpretation Comme nts POC-GLUCOSE METER (Spendji) 255 mg/dL 70-110 H : TESTED AT [address] (test code = 1538) [facility] X, [address]: Election Assistant/Techni edgar ID = [id number] for Sergio Keon ie POCT-GLUCOSE [id number] 12:51:48 Test Item Value Reference Range Interpretation Comments POC-GLUCOSE METER 163 mg/dL 70-110 H : TESTED A T [facility] (test code [facility], = 1538) 26918: Election Assistant/Techni edgar ID = [id number] for Rllavern blancas Maribeth POCT-GLUCOSE [id number] 08:30:42 Test Item Value Reference Range Interpretation Comments POC-GLUCOSE METER 143 mg/dL 70-110 H : TESTED A [facility] 6720 ([facility]) (test code [facility], = 1538) 29976: Election Assistant/Techni edgar ID = [id number] for Maribeth Shultz [id number] 06:37:48 Test Item Value Reference Range Interpretation Comments MAGNESIUM (BEAKER) (test code = 1.9 mg/dL 1.6-2.6 627) Election Assistant ID - GABRIELA [id number] 06:37:48 Test Item Value Reference Range Interpretation Comments POTASSIUM (BEAKER) (test code = 3.6 meq/L 3.5-5.1 379) Election Assistant ID - GABRIELA GPOCT-GLUCOSE [id number] 21:32:39 Test Item Value Reference Range Interpretation Comments POC-GLUCOSE METER 182 mg/dL 70-110 H : TESTED A T [facility] 6720 (BEAKER) (test code = [facility] Cindy [facility], 1538) 80245: Election Assistant/Techni edgar ID = [id number] for TABBY WAYNE POCT-GLUCOSE [id number] 18:06:11 Test Item Value Reference Range Interpretation Comments POC-GLUCOSE METER 177 mg/dL 70-110 H : TESTED A T [facility] 6720 (BEAKER) (test code [facility], = 1538) 32814: Election Assistant/Techni edgar ID = [id number] for Maykel Kumar SARS-COV2/RT-PCR ([facility])2022-04-19 13:36:23 Test Item Value Reference Range Interpretation Comments SARS-COV2/RT-PCR Negative Negative The SARS-Co V-2 target (test code = nucleic acids a re not 9224884) detected in thi s specimen. Negative result [...] revoked sooner. Fact Sheet for Healthcare Providers: https://www.Lvmae m/Documents/Xpert%20Xpress%20SARS%20CoV-2/Fact%20Sheets/3023802%63SQFS-MDU-4%20 HEALTHCARE%20PROVIDERS%20FACT%20SHEET.pdf Fact Sheet for Healthcare Patients: https://www.SimpleHoney/Documents/Xpert%20Xp ress%20SARS%20CoV-2/Fact%20Sheets/3023801%37SVBY-CJA-4%20PATIENT%20FACT%20SHEET .pdfPOCT-GLUCOSE [id number] 11:40:07 Test Item Value Reference Range Interpretation Comments POC-GLUCOSE METER 168 mg/dL 70-110 H : TESTED A T [facility] 6720 (BEAKER) (test code [facility], = 1538) 27796: Election Assistant/Techni edgar ID = [id number] for Vielka Garzon Maykel POCT-GLUCOSE [id number] 07:51:08 Test Item Value Reference Range Interpretation Comments POC-GLUCOSE METER 145 mg/dL 70-110 H : TESTED A T [facility] 6720 (BEAKER) (test code [facility], = 1538) 77891: Election Assistant/Techni edgar ID = [id number] for Vielka Garzon Maykel BLOOD [id number] 07:00:55 Test Item Value Reference Range Interpretation Comments CULTURE (BEAKER) (test No growth in 5 days code = 1095) The specimen volume collected for this blood culture was below the optimum (10 mL per bottle or 20 mL total). Use of lower volumes may adversely affect recovery and/or detection times of some organisms.BLOOD [id number] 07:00:54 Test Item Value Reference Range Interpretation Comments CULTURE (BEAKER) (test No growth in 5 days code = 1095) BASIC METABOLIC [id number] 05:38:09 Test Item Value Reference Range Interpretation [...] not appl icable for dialysis patien ts Election Assistant ID - [id number] 05:35:48 Test Item Value Reference Range Interpretation Comments MAGNESIUM (BEAKER) (test code = 1.5 mg/dL 1.6-2.6 L 627) Election Assistant ID - BSPOCT-GLUCOSE [id number] 22:05:06 Test Item Value Reference Range Interpretation Comments POC-GLUCOSE METER 265 mg/dL 70-110 H : TESTED A T [facility] 6720 (BEAKER) (test code = [place], 1538) 37966: Election Assistant/Techni edgar ID = [id number] for Br isnatasha Jaylenetrinitya POCT-GLUCOSE [id number] 17:29:36 Test Item Value Reference Range Interpretation Comments POC-GLUCOSE METER 212 mg/dL 70-110 H : TESTED A T [facility] 6720 (BEAKER) (test code [facility], = 1538) 36446: Election Assistant/Techni edgar ID = [id number] for Rl blancas, Maribeth POCT-GLUCOSE [id number] 12:21:53 Test Item Value Reference Range Interpretation Comments POC-GLUCOSE METER 221 mg/dL 70-110 H : TESTED A T [facility] 6720 (BEAKER) (test code [facility], = 1538) 66983: Election Assistant/Techni edgar ID = [id number] for Rl blancas, Maribeth POCT-GLUCOSE [id number] 08:13:29 Test Item Value Reference Range Interpretation Comments POC-GLUCOSE METER 162 mg/dL 70-110 H : TESTED A T [facility] 6720 (BEAKER) (test code [facility], = 1538) 59319: Election Assistant/Techni edgar ID = [id number] for Rl blancas, Maribeth POCT-GLUCOSE [id number] 21:50:20 Test Item Value Reference Range Interpretation Comments POC-GLUCOSE METER 225 mg/dL 70-110 H : TESTED A T [facility] 6720 (BEAKER) (test code = [facility], 1538) 34918: Election Assistant/Techni edgar ID = [id number] for PH ILIP, MARIEL POCT-GLUCOSE [id number] 17:42:44 Test Item Value Reference Range Interpretation Comments POC-GLUCOSE METER 260 mg/dL 70-110 H : TESTED A T [facility] 6720 (BEAKER) (test code = [facility], 1538) 21677: Election Assistant/Techni edgar ID = [id number] for Co rtez, [place] POCT-GLUCOSE [id number] 11:50:03 Test Item Value Reference Range Interpretation Comments POC-GLUCOSE METER 214 mg/dL 70-110 H : TESTED A T [facility] 6720 (BEAKER) (test code = [facility], 1538) 79483: Election Assistant/Techni edgar ID = [id number] for Co rtez, [place] POCT-GLUCOSE [id number] 07:46:19 Test Item Value Reference Range Interpretation Comments POC-GLUCOSE METER 126 mg/dL 70-110 H : TESTED A T [facility] 6720 (BEAKER) (test code = [facility], 1538) 73062: Election Assistant/Techni edgar ID = [id number] for Co rtez, Leena POCT-GLUCOSE [id number] 20:54:31 Test Item Value Reference Range Interpretation Comments POC-GLUCOSE METER 198 mg/dL 70-110 H : TESTED A T [facility] 6720 (BEAKER) (test code = [facility], 1538) 76686: Election Assistant/Techni edgar ID = [id number] for Br istol, Nykia POCT-GLUCOSE [id number] 17:33:57 Test Item Value Reference Range Interpretation Comments POC-GLUCOSE METER 253 mg/dL 70-110 H : TESTED A T [facility] 6720 (BEAKER) (test code = [facility], 1538) 12927: Election Assistant/Techni edgar ID = [id number] for Co rtez, Leena POCT-GLUCOSE [id number] 11:37:38 Test Item Value Reference Range Interpretation Comments POC-GLUCOSE METER 188 mg/dL 70-110 H : TESTED A T [facility] 6720 (BEAKER) (test code = [facility], 1538) 65492: Election Assistant/Techni edgar ID = [id number] for Co rtez, Leena SARS-COV2/RT-PCR ([facility])2022-04-16 10:44:18 Test Item Value Reference Range Interpretation Comments SARS-COV2/RT-PCR Negative Negative The SARS-Co V-2 target (test code = nucleic acids a re not 6990940) detected in thi s specimen. Negative result [...] revoked sooner. Fact Sheet for Healthcare Providers: https://www.Lvmae m/Documents/Xpert%20Xpress%20SARS%20CoV-2/Fact%20Sheets/302-3802%30VMXK-DRW-6%20 HEALTHCARE%20PROVIDERS%20FACT%20SHEET.pdf Fact Sheet for Healthcare Patients: https://www.SimpleHoney/Documents/Xpert%20Xp ress%20SARS%20CoV-2/Fact%20Sheets/302-3801%69YVNO-YTR-1%20PATIENT%20FACT%20SHEET .pdfRAD, FOOT, MIN 3 VIEWS, [id number] 09:37:00Reason for exam:- >evaluate for arthritisShould this be performed at the bedside?->Yes [facility] 1945 Sex: [...] enthesophyte noted. Vascular calcifications. Signed: Raza West Verified Date/Time: 04/16/2022 09:37:18 RAD, FOOT, MIN 3 VIEWS, [id number] 09:33:00Reason for exam:- >evaluate for arthritisShould this be performed at the bedside?->Yes [facility] 1945 Sex: [...] Vascular calcifications are present. Signed: Raza West Verified Date/Time: 04/16/2022 09:33:00 POCT- GLUCOSE [id number] 07:46:49 Test Item Value Reference Range Interpretation Comments POC-GLUCOSE METER 156 mg/dL 70-110 H : TESTED A T [facility] 6720 (BEAKER) (test code = [facility] [place] Cindy [facility], 1538) 62414: Election Assistant/Techni edgar ID = [id number] for Leena Dominguez BASIC METABOLIC [id number] 05:15:24 Test Item Value Reference Range Interpretation [...] not appl icable for dialysis patien ts Election Assistant ID - [id number] 05:15:24 Test Item Value Reference Range Interpretation Comments MAGNESIUM (BEAKER) (test code = 1.8 mg/dL 1.6-2.6 627) Election Assistant ID - MARCOPOCT-GLUCOSE [id number] 21:28:10 Test Item Value Reference Range Interpretation Comments POC-GLUCOSE METER 227 mg/dL 70-110 H : TESTED A T [facility] 6720 (BEAKER) (test code = [facility], 1538) 37885: Election Assistant/Techni edgar ID = [id number] for An asad (contract)Natalie POCT-GLUCOSE [id number] 17:38:58 Test Item Value Reference Range Interpretation Comments POC-GLUCOSE METER 252 mg/dL 70-110 H : TESTED A T [facility] 6720 (BEAKER) (test code = [facility], 1538) 07939: Election Assistant/Techni edgar ID = [id number] for OR PHEY, MARYLOU POCT-GLUCOSE [id number] 12:16:11 Test Item Value Reference Range Interpretation Comments POC-GLUCOSE METER 191 mg/dL 70-110 H : TESTED A T [facility] 6720 (BEAKER) (test code = [facility], 153) 88428: Election Assistant/Techni edgar ID = [id number] for OR PHEY, MARYLOU POCT-GLUCOSE [id number] 08:50:39 Test Item Value Reference Range Interpretation Comments POC-GLUCOSE METER 158 mg/dL 70-110 H : TESTED A T [facility] 6720 (BEAKER) (test code = [facility], 1538) 85032: Election Assistant/Techni edgar ID = [id number] for Ba Jeannette storey BLOOD [id number] 08:28:11 Test Item Value Reference Range Interpretation Comments CULTURE A From Anaerobic Bottle (BEAKER) (test Only Same org anism has code = 1095) been isolated f rom cultures(s) of the same body site within 3 days. Repeat identification and susceptibility testing performed only after consultation wi th the clinical microb iology laboratory.Refe r to previous cultur e ofEnterococcus faecalis GRAM STAIN From anaerobic RESULT (BEAKER) bottle only: gram (test code = positive cocci 1123) BLOOD [id number] 07:00:53 Test Item Value Reference Range Interpretation Comments CULTURE (BEAKER) (test No growth in 5 days code = 1095) POCT-GLUCOSE [id number] 22:38:19 Test Item Value Reference Range Interpretation Comments POC-GLUCOSE METER 147 mg/dL 70-110 H : TESTED A T [facility] 6720 (BEAKER) (test code = [facility], 1538) 70378: Election Assistant/Techni edgar ID = [id number] for BABAR NOVOA POCT-GLUCOSE [id number] 17:33:41 Test Item Value Reference Range Interpretation Comments POC-GLUCOSE METER 158 mg/dL 70-110 H : TESTED A T [facility] 6720 (BEAKER) (test code = [place] White [facility], 1538) 94520: Election Assistant/Techni edgar ID = [id number] for Wi lliams (contract), [place]ña [place] POCT-GLUCOSE [id number] 12:01:05 Test Item Value Reference Range Interpretation Comments POC-GLUCOSE METER 219 mg/dL 70-110 H : TESTED A T [facility] 6720 (BEAKER) (test code = [facility], 1538) 71927: Election Assistant/Techni edgar ID = [id number] for Wi lliams (contract), [place] RAD, HAND, 3 VIEWS, [id number] 08:42:00Reason for exam:->evaluate for arthritic changesShould this be performed at the bedside?->Yes [facility] : 1945 Sex: [...] interval, suggesting ligamentous injury. Signed: Preeti Burns MDReport Verified Date/Time: 04/14/2022 08:42:08 Reading Location: [address] Reading Room , HAND, 3 VIEWS, [id number] 08:42:00Reason for exam:->evaluate for arthritic changesShould this be performed at the bedside?->Yes [facility] : 1945 Sex: [...] scapholunate interval, suggesting ligamentous injury. Signed: Preeti Burnsepkae Verified Date/Time: 04/14/2022 08:42:08 Reading Location: [address] Reading Room -GLUCOSE [id number] 08:28:25 Test Item Value Reference Range Interpretation Comments POC-GLUCOSE METER 151 mg/dL 70-110 H : [facility] (BEAKER) (test code = [place], 1538) 22550: Election Assistant/Techni edgar ID = [id number] for Nv amy (contract), [facility] BASIC METABOLIC [id number] 07:09:05 Test Item Value Reference Range Interpretation [...] not appl icable for dialysis patien ts Election Assistant ID - [id number] 07:09:05 Test Item Value Reference Range Interpretation Comments MAGNESIUM (BEAKER) (test code = 1.7 mg/dL 1.6-2.6 627) Election Assistant ID - ADMINCBC W/PLT COUNT & AUTO [id number] 06:17:33 Test Item Value Reference Range Interpretation [...] PERCENT (BEAKER) (test code = 2801) POCT-GLUCOSE [id number] 20:57:22 Test Item Value Reference Range Interpretation Comments POC-GLUCOSE METER 124 mg/dL 70-110 H : TESTED A T [facility] 6720 (BEAKER) (test code = [facility], 1538) 18916: Election Assistant/Techni edgar ID = [id number] for Beatrice Verdin se POCT-GLUCOSE [id number] 16:13:05 Test Item Value Reference Range Interpretation Comments POC-GLUCOSE METER 215 mg/dL 70-110 H : TESTED A T [facility] 6720 (BEAKER) (test code = [facility], 1538) 66025: Election Assistant/Techni edgar ID = [id number] for rosannaluiz Boaz RHEUMATOID FACTOR [id number] 13:12:36 Test Item Value Reference Range Interpretation Comments RHEUMATOID FACTOR TITER (BEAKER) (test :32 Negative code = 2285) RHEUMATOID FACTOR AB, REFLEX TO [id number] 13:12:30 Test Item Value Reference Range Interpretation [...] 6720 (BEAKER) (test code = [place], 1538) 88082: Election Assistant/Techni edgar ID = [id number] for Boaz Flores POCT-GLUCOSE [id number] 08:33:40 Test Item Value Reference Range Interpretation Comments POC-GLUCOSE METER 180 mg/dL 70-110 H : TESTED A T [facility] 6720 (BEAKER) (test code = [place] White [facility], 1538) 33477: Election Assistant/Techni edgar ID = [id number] for Boaz Flores C-REACTIVE [id number] 05:37:23 Test Item Value Reference Range Interpretation Comments C-REACTIVE PROTEIN (BEAKER) (test 20.34 mg/dL 0.00-0.50 H code = 676) Election Assistant ID - GABRIELA GBASIC METABOLIC [id number] 05:37:22 Test Item Value Reference Range Interpretation [...] not appl icable for dialysis patien ts Election Assistant ID - GABRIELA GCBC W/PLT COUNT & AUTO [id number] 05:12:04 Test Item Value Reference Range Interpretation [...] PERCENT (BEAKER) (test code = 2801) POCT-GLUCOSE [id number] 21:21:10 Test Item Value Reference Range Interpretation Comments POC-GLUCOSE METER 245 mg/dL 70-110 H : TESTED A T [facility] 6720 (BEAKER) (test code = [place] Cindy [facility], 1538) 43059: Election Assistant/Techni edgar ID = [id number] for Beatrice Verdin se SARS-COV2/RT-PCR ([facility])2022-04-12 19:08:12 Test Item Value Reference Range Interpretation Comments SARS-COV2/RT-PCR Negative Negative The SARS-Co V-2 target (test code = nucleic acids a re not 7261480) detected in thi s specimen. Negative result [...] revoked sooner. Fact Sheet for Healthcare Providers: https://www.cepheid.co m/Documents/Xpert%20Xpress%20SARS%20CoV-2/Fact%20Sheets/302-3802%79WETW-MJA-7%20 HEALTHCARE%20PROVIDERS%20FACT%20SHEET.pdf Fact Sheet for Healthcare Patients: https://www.SimpleHoney/Documents/Xpert%20Xp ress%20SARS%20CoV-2/Fact%20Sheets/302-3801%30XQRW-WTN-4%20PATIENT%20FACT%20SHEET .pdfURIC [id number] 14:37:03 Test Item Value Reference Range Interpretation Comments URIC ACID (BEAKER) (test code = 7.4 mg/dL 2.6-7.2 H 773) Election Assistant ID - MARII, CHEST, 1 VIEW, NON [id number] 13:43:00Reason for exam:->PICC tip location verification. Thanks.Should this be performed at the bedside?->[facility] : 1945 Sex: [...] the superior vena cava. Signed: Preeti Burns [facility] Verified Date/Time: 04/12/2022 13:43:43 Reading Location: [facility] B1 C013V Neuro Reading Room POCT-GLUCOSE [id number] 13:00:58 Test Item Value Reference Range Interpretation Comments POC-GLUCOSE METER 225 mg/dL 70-110 H : TESTED A T [facility] 6720 (BEAKER) (test code = [facility] [place] Cindy [facility], 1538) 42456: Election Assistant/Techni edgar ID = [id number] for OR MARYLOU SOSA POCT-GLUCOSE [id number] 08:37:19 Test Item Value Reference Range Interpretation Comments POC-GLUCOSE METER 169 mg/dL 70-110 H : TESTED A T [facility] 6720 (BEAKER) (test code = [facility], 1538) 95473: Election Assistant/Techni edgar ID = [id number] for OR MARYLOU SOSA BLOOD [id number] 08:27:56 Test Item Value Reference Range Interpretation [...] = 1123) gram positive coccobacilli BASIC METABOLIC [id number] 06:59:57 Test Item Value Reference Range Interpretation [...] not appl icable for dialysis patien ts Election Assistant ID - [id number] 06:59:57 Test Item Value Reference Range Interpretation Comments MAGNESIUM (BEAKER) (test code = 1.7 mg/dL 1.6-2.6 627) Election Assistant ID - MARCOCBC W/PLT COUNT & AUTO [id number] 06:48:32 Test Item Value Reference Range Interpretation [...] PERCENT (BEAKER) (test code = 2801) POCT-GLUCOSE [id number] 22:04:13 Test Item Value Reference Range Interpretation Comments POC-GLUCOSE METER 205 mg/dL 70-110 H : TESTED A T [facility] 6720 (BEAKER) (test code = [facility], 153) 38922: Election Assistant/Techni edgar ID = [id number] for Beatrice Verdin se POCT-GLUCOSE [id number] 17:42:55 Test Item Value Reference Range Interpretation Comments POC-GLUCOSE METER 178 mg/dL 70-110 H : TESTED A T [facility] 6720 (BEAKER) (test code = [facility], 153) 76127: Election Assistant/Techni edgar ID = [id number] for Luis LING POCT-GLUCOSE [id number] 11:43:28 Test Item Value Reference Range Interpretation Comments POC-GLUCOSE METER 159 mg/dL 70-110 H : TESTED A T [facility] 6720 (CLAUDIO) (test code = [place], 1538) 66711: Election Assistant/Techni edgar ID = [id number] for Luis LING CT, CHEST, WITHOUT [id number] 10:20:00Unlisted Reason for Exam - Click Yes and Enter Reason Below->YesUnlisted Reason for Exam->Enterococcus bacteremia, severe pain left sternoclavicular joint, evaluate for effusion and septic arthritisANAHEIM [facility]Name[facility] : 1945 Sex: [...] osseous destructive change or definite effusion. Signed: Diaomnd Pepper MDReport Verified Date/Time: 04/11/2022 10:20:05 BLOOD [id number] 08:51:24 Test Item Value Reference Range Interpretation Comments CULTURE A From Aerobic An d (BEAKER) (test Anaerobic Bot tles code = 1095) Same organism h as been isolated f rom cultures(s) of the same body site and collection date . Repeat identifi cation and susceptibil ity testing perform ed only after consultation wi th the clinical microb iology laboratory.Refe r to previous cultur e ofEnterococcus faecalis GRAM STAIN From aerobic and RESULT anaerobic bottles: (BEAKER) (test gram positive code = 1123) coccobacilli U/S, EXTREMITY (NON-VASCULAR), RIGHT, [id number] 08:20:00Reason for exam:->palpable nodule [facility] : 1945 Sex: MFINAL REPORT TECHNIQUE: Grayscale ultrasound of the right wrist. INDICATION: palpable nodule. COMPARISON: None. FINDINGS/IMPRESSION:There is anechoic fluid in the ventral wrist which surrounds the tendon sheath. There is some complex material within this fluid. This is concerning for tenosynovitis. Underlying infection cannot be excluded on the basis examination. Signed: Liz Curraneport Verified Date/Time: 04/11/2022 08:20:15 BASIC METABOLIC [id number] 05:30:53 Test Item Value Reference Range Interpretation [...] not appl icable for dialysis patien ts Election Assistant ID - JACINTO [id number] 05:30:53 Test Item Value Reference Range Interpretation Comments MAGNESIUM (BEAKER) (test code = 1.6 mg/dL 1.6-2.6 627) Election Assistant ID - JACINTO LCBC W/PLT COUNT & AUTO [id number] 04:55:23 Test Item Value Reference Range Interpretation [...] PERCENT (BEAKER) (test code = 2801) POCT-GLUCOSE [id number] 20:53:15 Test Item Value Reference Range Interpretation Comments POC-GLUCOSE METER 166 mg/dL 70-110 H : TESTED A T [facility] 6720 (BEAKER) (test code = [facility], 1538) 38156: Election Assistant/Techni edgar ID = [id number] for BABAR NOVOA POCT-GLUCOSE [id number] 17:57:02 Test Item Value Reference Range Interpretation Comments POC-GLUCOSE METER 206 mg/dL 70-110 H : TESTED A T [facility] 6720 (BEAKER) (test code = [facility], 1538) 29805: Election Assistant/Techni edgar ID = [id number] for Kyra Mehta POCT-GLUCOSE [id number] 12:45:55 Test Item Value Reference Range Interpretation Comments POC-GLUCOSE METER 285 mg/dL 70-110 H : TESTED A T [facility] 6720 (BEAKER) (test code = [facility], 1538) 59320: Election Assistant/Techni edgar ID = [id number] for SUNNY MURRIETA POCT-GLUCOSE [id number] 08:09:05 Test Item Value Reference Range Interpretation Comments POC-GLUCOSE METER 179 mg/dL 70-110 H : TESTED A T [facility] 6720 (BEAKER) (test code = [facility], 1538) 66909: Election Assistant/Techni edgar ID = [id number] for SUNNY MURRIETA [id number] 06:54:37 Test Item Value Reference Range Interpretation Comments MAGNESIUM (BEAKER) (test code = 1.6 mg/dL 1.6-2.6 627) Election Assistant ID - PIAYA LBASIC METABOLIC [id number] 06:54:36 Test Item Value Reference Range Interpretation [...] not appl icable for dialysis patien ts Election Assistant ID - PIAYA LCBC W/PLT COUNT & AUTO [id number] 06:13:23 Test Item Value Reference Range Interpretation [...] PERCENT (BEAKER) (test code = 2801) POCT-GLUCOSE [id number] 20:34:52 Test Item Value Reference Range Interpretation Comments POC-GLUCOSE METER 331 mg/dL 70-110 H : TESTED A T [facility] 6720 (BEAKER) (test code = [place], 1538) 25618: Election Assistant/Techni edgar ID = [id number] for RO JEREMY, BABAR RAD, KNEE, 1 OR 2 VIEWS, [id number] 17:49:00Reason for exam:->c/f infection - unable to do MRI [facility] KETTYDARCIKirsten BILLY MORRISNE : 1945 Sex: MFINAL REPORT RAD, KNEE, [...] Sandrita Wright MDReport Verified Date/Time: 04/09/2022 17:49:20 RAD, KNEE, 1 OR 2 VIEWS, [id number] 17:49:00Reason for exam:- >c/f infection - unable to do MRI [facility] CENTERName: BILLY FLAHERTY : 1945 [...] Wright MDReport Verified Date/Time: 04/09/2022 17:49:20 POCT-GLUCOSE [id number] 17:35:50 Test Item Value Reference Range Interpretation Comments POC-GLUCOSE METER 311 mg/dL 70-110 H : [facility] (BEAKER) (test code = MARCEEUN White [facility], 1538) 72904: Election Assistant/Techni edgar ID = [id number] for Jeannette Foster BLOOD CULTURE IDENTIFICATION [id number] 17:29:02 Test Item Value Reference Interpretation Comments Range LISTERIA MONOCYTOGENES Not detected Not detected (test code = 1106307) STAPHYLOCOCCUS (test Not detected Not detected code = 0142053) STAPHYLOCOCCUS AUREUS Not detected Not detected (test code = 0198600) STREPTOCOCCUS (test code Not detected Not detected = 8581847) STREPTOCOCCUS AGALACTIAE Not detected Not detected (GROUP B) (test code = 9756619) STREPTOCOCCUS PNEUMONIAE Not detected Not detected (test code = 6085166) STREPTOCOCCUS PYOGENES Not detected Not detected (GROUP A) (test code = 5560383) ACINETOBACTER BAUMANNII Not detected Not detected (test code = 4218227) HAEMOPHILUS INFLUENZAE Not detected Not detected (test code = 9264520) NEISSERIA MENINGITIDIS Not detected Not detected (test code = 2881753) ENTEROBACTERIACEAE (test Not detected Not detected code = 4747819) ENTEROBACTER CLOACOE Not detected Not detected COMPLEX (test code = 1036126) KLEBSIELLA OXYTOCA (test Not detected Not detected code = 5529418) KLEBSIELLA PNEUMONIAE Not detected Not detected (test code = 1650) PROTEUS (test code = Not detected Not detected 4696347) SERRATIA MARCESCENS Not detected Not detected (test code = 8236675) DEVANTE ALBICANS (test Not detected Not detected code = 1406228) DEVANTE GLABRATA (test Not detected Not detected code = 6879529) DEVANTE KRUSEI (test Not detected Not detected code = 0103123) DEVANTE PARAPSILOSIS Not detected Not detected (test code = 3556897) DEVANTE TROPICALIS (BKR) Not detected Not detected (test code = 7844645) ESCHERICHIA COLI (test Not detected Not detected code = 0077992) METHICILLIN-RESISTANCE GENE (test code = 1641862) VANCOMYCIN-RESISTANCE Not detected Not detected Note: Antimicrobial GENE (test code = resistance can 5862189) occur via multi ple mechanisms. A N ot Detected result for the Film[employer] antimicrobial resistance gene assays does not indicate antimicrobial susceptibility. Subculturing is required for species identification and susceptibility testing of isolates. CARBAPENEM-RESISTANCE GENE (test code = 0310013) ENTEROCOCCUS-BEAKER Detected Not detected A Vancomyc in-suscepti (test code = 7342281) ble En terococcus (VSE)First-line therapy: Vancom ycin or Ampicillin (Ampicillin onl y if confirmed susceptible) Reference Range : Not Detected PSEUDOMONAS Not detected Not detected AERUGINOSA-BEAKER (test code = 8605764) Other bacteria and resistance markers not targeted by this PCR panel cannot be excluded; therefore clinical correlation and follow up of serology, culture results, and other molecular studies is required. The results are not intended to be used as the sole means for clinical diagnosis or patient management decisions. This sample was tested at the [facility]ostics Laboratory using the TaigenArray Blood Culture ID Panel. It is FDA cleared and has been verified and approved by the [facility] for clinical use. This laboratory is CLIA-certified and College ofAmerican Pathologists (CAP)-accredited to perform high complexity testing.POCT-GLUCOSE [id number] 12:20:37 Test Item Value Reference Range Interpretation Comments POC-GLUCOSE METER 265 mg/dL 70-110 H : TESTED A T [facility] 6720 (BEAKER) (test code = [facility] [place] [facility], 1538) [address]: Election Assistant/Techni edgar ID = [id number] for Ba rrera, Jeannette POCT-GLUCOSE [id number] 08:40:48 Test Item Value Reference Range Interpretation Comments POC-GLUCOSE METER 235 mg/dL 70-110 H : TESTED A T [facility] 6720 (BEAKER) (test code = [facility] [place] [facility], 1538) [address]: Election Assistant/Techni edgar ID = [id number] for Ba rrera, Jeannette PROTHROMBIN TIME/[id number] 06:39:39 Test Item Value Reference Range Interpretation Comments PROTIME (BEAKER) (test code = 17.2 seconds 11.9-14.2 H 759) INR (BEAKER) (test code = 370) 1.50 <=5.90 RECOMMENDED COUMADIN/WARFARIN INR THERAPY RANGESSTANDARD DOSE: 2.0 - 3.0 Includes: PROPHYLAXIS for venous thrombosis, systemic embolization; TREATMENT for venous thrombosis and/or pulmonary embolus.HIGH RISK: Target INR is 2.5-3.5 for patients with mechanical heart valves.SARS-COV2/RT-PCR ([facility]) 2022-04-09 04:26:18 Test Item Value Reference Range Interpretation Comments SARS-COV2/RT-PCR Negative Negative The SARS-Co V-2 target (test code = nucleic acids a re not 6463825) detected in thi s specimen. Negative result [...] revoked sooner. Fact Sheet for Healthcare Providers: https://www.Stretch.co m/Documents/Xpert%20Xpress%20SARS%20CoV-2/Fact%20Sheets/753-0535%69YDSS-WNT-5%20 HEALTHCARE%20PROVIDERS%20FACT%20SHEET.pdf Fact Sheet for Healthcare Patients: https://www.SimpleHoney/Documents/Xpert%20Xp ress%20SARS%20CoV-2/Fact%20Sheets/635-7661%70CVPB-HWW-3%20PATIENT%20FACT%20SHEET .pdfCOMPREHENSIVE METABOLIC [id number] 04:14:41 Test Item Value Reference Range Interpretation [...] not appl icable for dialysis patien ts Election Assistant ID - PIAYA LC-REACTIVE [id number] 04:14:41 Test Item Value Reference Range Interpretation Comments C-REACTIVE PROTEIN (BEAKER) (test 23.69 mg/dL 0.00-0.50 H code = 676) Election Assistant ID July CASEY LVANCOMYCIN LEVEL, [id number] 04:02:30 Test Item Value Reference Range Interpretation Comments VANCOMYCIN TROUGH (BEAKER) (test 15.4 ug/mL 10.0-20.0 code = 522) Election Assistant ID - JACINTO LCBC W/PLT COUNT & AUTO [id number] 04:02:12 Test Item Value Reference Range Interpretation [...] (BEAKER) (test code = 2801) LACTIC ACID, [id number] 03:56:51 Test Item Value Reference Range Interpretation Comments LACTATE BLOOD VENOUS 1.24 mmol/L 0.50-2.20 Specime n slightly (2) (BEAKER) (test hemolyzed code = 2872) Election Assistant ID - JACINTO GONZALEZ-MITOCHONDRIAL AB, REFLEX TO [id number] 10:46:02 Test Item Value Reference Range Interpretation Comments SCAN RESULT (test code = 1971381) PHOSPHATIDYLETHANOL, [id number] 15:28:13 Test Item Value Reference Range Interpretation Comments PHOSPHATIDYLETHANOL (PETH) See scanned (test code = 7358011) report See scanned reportPOC-Glucose [id number] 07:48:54 Test Item Value Reference Range Interpretation Comments POC-Glucose Meter (test 184 mg/dL 70-110 H : TE STED AT [facility] code = 1538) 6720 [facility], 770 30: Election Assistant/Techni edgar ID = [id number] for Sergio Keon ie Lab Interpretation (test Abnormal code = 07300-3) [facility] [id number] 07:48:54 Test Item Value Reference Range Interpretation Comments POC-GLUCOSE METER 184 mg/dL 70-110 H : TESTED A T [facility] 6720 (BEAKER) (test code [facility], = 1538) [address]: Election Assistant/Techni edgar ID = [id number] for Maribeth Shultz [id number] 05:28:46 Test Item Value Reference Range Interpretation Comments MAGNESIUM (BEAKER) (test code = 1.4 mg/dL 1.6-2.6 L 627) Election Assistant ID - PIAYA LPOCT-GLUCOSE [id number] 00:12:17 Test Item Value Reference Range Interpretation Comments POC-GLUCOSE METER 197 mg/dL 70-110 H : TESTED A T [facility] 6720 (BEAKER) (test code = [facility], 1538) 10020: Election Assistant/Techni edgar ID = [id number] for CLARISSA PFEIFFER POCT-GLUCOSE [id number] 21:47:16 Test Item Value Reference Range Interpretation Comments POC-GLUCOSE METER 207 mg/dL 70-110 H : [facility] (test code = [facility], 1538) 28699: Election Assistant/Techni edgar ID = [id number] for SANDEEP LOTT POCT-GLUCOSE [id number] 17:30:32 Test Item Value Reference Range Interpretation Comments POC-GLUCOSE METER 222 mg/dL 70-110 H : TESTED A T [facility] 6720 ([facility]) (test code [facility], = 1538) 808[address]: Election Assistant/Techni edgar ID = [id number] for Maribeth Shultz PET/CT, WHOLE BODY [id number] 14:25:00Unlisted Reason for Exam - Click Yes and Enter Reason Below->YesUnlisted Reason for Exam->bacteremia - no known sourceANAHEIM REGIONAL MEDICAL CENTERName: BILLY FLAHERTY : 1945 Sex: MFINAL REPORT PROCEDURE: FDG PET/CT for Inflammation/Infection CPT CODE: 21405 HISTORY: Intermittent bacteremia, fever INDICATION: FDG PET/CT [...] Shine MDReport Verified Date/Time: 02/25/2022 14:25:36 POCT-GLUCOSE [id number] 11:34:37 Test Item Value Reference Range Interpretation Comments POC-GLUCOSE METER 211 mg/dL 70-110 H : TESTED A T [facility] 6720 (BEAKER) (test code = [facility], 1538) 57[address]: Election Assistant/Techni edgar ID = [id number] for Eligio Brady BASIC METABOLIC [id number] 10:56:15 Test Item Value Reference Range Interpretation [...] De scription 1092) sq m Result G1 Ajyne l or high >=90 G2 Mildly decreased [...] not appl icable for dialysis patien ts Election Assistant ID - MARIORS-CoV2/RT-PCR (Asymptomatic ONLY)2022-02-25 08:55:41 Test Item Value Reference Interpretation Comments Range SARS-COV2/RT-PCR Negative Negative The SARS-Co V-2 (test code = target nucleic 53070-3) acids are not detected in thi s [...] om SARS-CoV-2 in a nasopharyngeal swab specimen colle deepali from individual s suspected of COVID-19 [...] Food, Drug and Cosmetic Act, 21 U.S.C. § 360bbb-3(b)(1), unless the authorization is terminated or revoked sooner. Fact Sheet for Healthcare Providers: https://www.Anyadir Education/Documents/Xp ert%20Xpress%20SAR S%20CoV-2/Fact%20S heets/302-3802%20S ARS-COV-2%20HEALTH CARE%20PROVIDERS%2 0FACT%20SHEET.pdf Fact Sheet for Healthcare Patients: https://www.Anyadir Education/Documents/Xp ert%20Xpress%20SAR S%20CoV-2/Fact%20S heets/302-3801%20S ARS-COV-2%20PATIEN T%20FACT%20SHEET.p df Lab Interpretation Normal (test code = 99653-6) [facility])2022-02-25 08:55:41 Test Item Value Reference Range Interpretation Comments SARS-COV2/RT-PCR Negative Negative The SARS-Co V-2 target (test code = nucleic acids a re not 6297170) detected in thi s specimen. Negative result [...] rapid, real-time RT-PC R test intended for e qualitative detection of nu cleic acid [...] revoked sooner. Fact Sheet for Healthcare Providers: https://www.Lvmae m/Documents/Xpert%20Xpress%20SARS%20CoV-2/Fact%20Sheets/302-3802%32LEGI-FYS-9%20 HEALTHCARE%20PROVIDERS%20FACT%20SHEET.pdf Fact Sheet for Healthcare Patients: https://www.SimpleHoney/Documents/Xpert%20Xp ress%20SARS%20CoV-2/Fact%20Sheets/302-3801%93HBAH-LLU-4%20PATIENT%20FACT%20SHEET .pdfPOCT-GLUCOSE [id number] 08:14:16 Test Item Value Reference Range Interpretation Comments POC-GLUCOSE METER 192 mg/dL 70-110 H : TESTED A T [facility] 6720 (BEAKER) (test code [facility], = 1538) 18483: Election Assistant/Techni edgar ID = [id number] for Maribeth Shultz BASIC METABOLIC [id number] 05:58:38 Test Item Value Reference Range Interpretation [...] not appl icable for dialysis patien ts Election Assistant ID - MARCOCBC W/PLT COUNT & AUTO [id number] 05:11:55 Test Item Value Reference Range Interpretation [...] PERCENT (BEAKER) (test code = 2801) POCT-GLUCOSE [id number] 21:24:31 Test Item Value Reference Range Interpretation Comments POC-GLUCOSE METER 229 mg/dL 70-110 H : TESTED A T [facility] 6720 (BEAKER) (test code = [facility], 153) 38366: Election Assistant/Techni edgar ID = [id number] for RO BABAR LUNA POCT-GLUCOSE [id number] 17:58:00 Test Item Value Reference Range Interpretation Comments POC-GLUCOSE METER 256 mg/dL 70-110 H : TESTED A T [facility] 6720 (BEAKER) (test code = [facility], 153) 897[address]: Election Assistant/Techni edgar ID = [id number] for MARYLOU FOLEY HEPATIC FUNCTION [id number] 13:05:15 Test Item Value Reference Range Interpretation [...] (test code = 19 U/L 6-55 347) Election Assistant ID - BSPOCT-GLUCOSE [id number] 12:11:41 Test Item Value Reference Range Interpretation Comments POC-GLUCOSE METER 310 mg/dL 70-110 H : TESTED A T [facility] 6720 (BEAKER) (test code = [facility], 1538) 19531: Election Assistant/Techni edgar ID = [id number] for OR MARYLOU SOSA POCT-GLUCOSE [id number] 08:36:09 Test Item Value Reference Range Interpretation Comments POC-GLUCOSE METER 216 mg/dL 70-110 H : TESTED A T [facility] 6720 (BEAKER) (test code = [facility], 1538) 70372: Election Assistant/Techni edgar ID = [id number] for OR SHANTEYMARYLOU BASIC METABOLIC [id number] 08:20:34 Test Item Value Reference Range Interpretation [...] not appl icable for dialysis patien ts Election Assistant ID - GABRIELA GOperator ID - GABRIELA GOperator ID - GABRIELA GCBC W/PLT COUNT & AUTO [id number] 06:11:39 Test Item Value Reference Range Interpretation [...] PERCENT (BEAKER) (test code = 2801) POCT-GLUCOSE [id number] 20:05:46 Test Item Value Reference Range Interpretation Comments POC-GLUCOSE METER 313 mg/dL 70-110 H : TESTED A T [facility] 6720 ([facility]) (test code = [place], 1538) [address]: Election Assistant/Techni edgar ID = [id number] for HALEY HOPSON RAD, CHEST, 1 VIEW, NON [id number] 17:47:00Reason for exam:->check picc placementShould this be performed at the bedside?->Yesmay need grid, pt 6'8" 300lbs+[facility]ENTERName: BILLY FLAHERTY : 1945 Sex: [...] MDReport Verified Date/Time: 02/23/2022 17:47:24 POCT- GLUCOSE [id number] 17:30:37 Test Item Value Reference Range Interpretation Comments POC-GLUCOSE METER 320 mg/dL 70-110 H : TESTED A T [facility] 6720 (BEAKER) (test code [facility], = 1538) 42653: Election Assistant/Techni edgar ID = [id number] for Anirudh Fieldqueline Transesophageal [id number] 16:29:59Ejection FractionSLE ECHO HEARTLAB MKCKESSON CPASan [facility] Hospitalodium, random [id number] 14:12:52 Test Item Value Reference Range Interpretation Comments Sodium Urine (test 125 meq/L code = 2955-3) SAMPSON (test code = Reference Range: No SAMPSON) NormalsOperator ID - KELSEA Fulton [facility] Hospital[facility], RANDOM [id number] 14:12:52 Test Item Value Reference Range Interpretation Comments SODIUM URINE (BEAKER) (test code = 125 meq/L 243) Reference Range: No NormalsOperator ID - KELSEA DPOCT-GLUCOSE [id number] 12:15:01 Test Item Value Reference Range Interpretation Comments POC-GLUCOSE METER 195 mg/dL 70-110 H : TESTED A T [facility] 6720 (BEAKER) (test code [facility], = 1538) 76331: Election Assistant/Techni edgar ID = [id number] for Anirudh Fieldqueline BLOOD [id number] 12:04:13 Test Item Value Reference Range Interpretation Comments CULTURE (BEAKER) (test No growth in 5 days code = 1095) BLOOD [id number] 12:04:13 Test Item Value Reference Range Interpretation Comments CULTURE (BEAKER) (test No growth in 5 days code = 1095) POCT-GLUCOSE [id number] 07:20:54 Test Item Value Reference Range Interpretation Comments POC-GLUCOSE METER 214 mg/dL 70-110 H : TESTED A T [facility] 6720 (BEAKER) (test code [facility], = 1538) 568[address]: Election Assistant/Techni edgar ID = [id number] for Brandi Field (CELLAVISION MANUAL DIFF)2022-02-23 07:20:23 [...] CONCENTRATION Decreased (CELLAVISION)(BEAKER) (test code = 3438) Election Assistant ID - Lluvia Tobias comments: Slide comments:CBC W/PLT COUNT & AUTO [id number] 07:20:22 Test Item Value Reference Range Interpretation [...] 0-0 (test code = 413) BASIC METABOLIC [id number] 05:34:48 Test Item Value Reference Range Interpretation [...] not appl icable for dialysis patien ts Election Assistant ID - ARIA WPOCT-GLUCOSE [id number] 21:30:33 Test Item Value Reference Range Interpretation Comments POC-GLUCOSE METER 274 mg/dL 70-110 H : TESTED A T [facility] 6720 (BEAKER) (test code = [facility], 1538) 80498: Election Assistant/Techni edgar ID = [id number] for Maranda Miner POCT-GLUCOSE [id number] 17:25:41 Test Item Value Reference Range Interpretation Comments POC-GLUCOSE METER 297 mg/dL 70-110 H : TESTED A T [facility] 6720 (BEAKER) (test code [facility], = 1538) 676[address]: Election Assistant/Techni edgar ID = [id number] for Maribeth Shultz ANTI-NUCLEAR ANTIBODY (ARACELIS)2022 15:02:26 Test Item Value Reference Range Interpretation Comments ANTI-NUCLEAR ANTIBODY (ARACELIS) (AKER) Negative Negative (test code = 418) Test performed by IFA method.Test performed by IFA method.POCT-GLUCOSE METER 2022 14:58:47 Test Item Value Reference Range Interpretation Comments POC-GLUCOSE METER 213 mg/dL 70-110 H : TESTED A T [facility] 6720 (BEAKER) (test code = [facility], 1538) 25413: Election Assistant/Techni edgar ID = [id number] for LJ BUTLER POCT-GLUCOSE [id number] 12:21:28 Test Item Value Reference Range Interpretation Comments POC-GLUCOSE METER 209 mg/dL 70-110 H : TESTED A T [facility] 6720 (BEAKER) (test code [facility], = 1538) 75536: Election Assistant/Techni edgar ID = [id number] for Maribeth Shultz POCT-GLUCOSE [id number] 08:40:37 Test Item Value Reference Range Interpretation Comments POC-GLUCOSE METER 195 mg/dL 70-110 H : TESTED A T [facility] 6720 (BEAKER) (test code [facility], = 1538) 93792: Election Assistant/Techni edgar ID = [id number] for Maribeth Shultz ALPHA FETOPROTEIN (AFP), TUMOR [id number] 05:59:46 Test Item Value Reference Range Interpretation Comments ALPHA-FETOPROTEIN (BEAKER) (test code < ng/mL <10.0 = 1094) Election Assistant ID - BSBASIC METABOLIC [id number] 05:38:41 Test Item Value Reference Range Interpretation [...] eGF R is based on the CKD-EPI 1 equation that d oes not use a race coefficientEsti mated GFR is not as accur ate as Creatinine Montserrat demetrius in predicting glom erular filtration rate . Estimated GFR is not appl icable for dialysis patien ts Election Assistant ID - BSCBC W/PLT COUNT & AUTO [id number] 05:22:37 Test Item Value Reference Range Interpretation [...] 417) IMMATURE GRANULOCYTES-RELATIVE 0.40 % 0.00-1.00 PERCENT (AKER) (test code = 2801) POCT-GLUCOSE [id number] 23:26:45 Test Item Value Reference Range Interpretation Comments POC-GLUCOSE METER 377 mg/dL 70-110 H : TESTED A T [facility] 6720 ([facility]) (test code = [facility], 1538) 63336: Election Assistant/Techni edgar ID = [id number] for Br istol, Nykia POCT-GLUCOSE [id number] 21:37:47 Test Item Value Reference Range Interpretation Comments POC-GLUCOSE METER 413 mg/dL 70-110 HH : Notified RN/MD: (CLAUDIO) (test code = TESTED AT [facility] 6720 1538) [facility], [address]: Election Assistant/Techni edgar ID = [id number] for Br istol, Nykia [id number] 18:09:28 Test Item Value Reference Range Interpretation Comments FERRITIN (PRACHI) (test code = 381.25 ng/mL 5.00-275.00 H 361) Election Assistant ID - BSPOCT-GLUCOSE [id number] 17:39:43 Test Item Value Reference Range Interpretation Comments POC-GLUCOSE METER 264 mg/dL 70-110 H : TESTED A T [facility] 6720 ([facility]) (test code = [facility], 1538) 21882: Election Assistant/Techni edgar ID = [id number] for RAIMUNDO SINGH HEPATITIS B SURFACE [id number] 17:23:36 Test Item Value Reference Range Interpretation Comments HEPATITIS B SURFACE ANTIBODY < mIU/mL <8.0 (PRACHI) (test code = 647) Election Assistant ID - ADMINHEPATITIS A ANTIBODY, [id number] 17:23:00 Test Item Value Reference Range Interpretation Comments HEPATITIS A IGG ANTIBODY (JOSE ARMANDOAKER) Nonreactive Nonreactive (test code = 2797) Election Assistant ID - ADMINHEPATITIS C [id number] 17:22:59 Test Item Value Reference Range Interpretation Comments HEPATITIS C ANTIBODY ([facility]) Nonreactive Nonreactive (test code = 367) Election Assistant ID - ADMINHEPATITIS B CORE ANTIBODY, [id number] 17:22:59 Test Item Value Reference Range Interpretation Comments HEPATITIS B CORE TOTAL ANTIBODY Nonreactive Nonreactive (BEAKER) (test code = 497) Election Assistant ID - ADMINHEPATITIS B SURFACE [id number] 17:22:58 Test Item Value Reference Range Interpretation [...] % 20-55 L (test code = 2590) Election Assistant ID - AWPKAHC-0-[id number] 17:00:35 Test Item Value Reference Range Interpretation Comments ALPHA-1 ANTITRYPSIN (BEAKER) 260.90 mg/dL 90.00-200.00 H (test code = 502) Election Assistant ID - ADMINPOCT-GLUCOSE [id number] 13:08:44 Test Item Value Reference Range Interpretation Comments POC-GLUCOSE METER 309 mg/dL 70-110 H : [facility] (test code = [place], 1538) 133[address]: Election Assistant/Techni edgar ID = [id number] for HI DALGO, AGLAE CT, [id number] 08:15:00Unlisted Reason for Exam - Click Yes and Enter Reason Below->YesUnlisted Reason for Exam->Bacteremia, R/O abd sourceProtocol Please Specify:->Standard ProtocolWill this procedure require oral contrast?->Yes [facility]Name: BILLY FLAHERTYNE : 1945 Sex: MFINAL REPORT ABDOMINAL AND PELVIS CT DATED 02/21/2022 CLINICAL INFORMATION: UnlistedReason for ExamBacteremia, R/O abd source TECHNIQUE: Axial images of the abdomen and pelvis were obtained from diaphragm to the pubic symphysis with GI and intravenous contrast. This exam was performed according to our departmental dose-optimization program, which includes automated exposure control,adjustment of the mA and/or kV according to [...] size. The urinary bladder is contracted. No m ass, adenopathy or ascites is present. IMPRESSION: 1. Trace left pleural effusion and nonspecific groundglass pulmonary parenchyma disease in the visualized lower lobes.2. Cirrhosis with splenomegaly.3. Diverticulosis without diverticulitis.4. No abscess in the abdomen or pelvis.5. Left adrenal mass. S igned: Kartik Cottrell MDReport Verified Date/Time: 02/21/2022 08:15:45 Reading Location: [facility] B1 C013Y CT Body Reading Room POCT-GLUCOSE [id number] 07:53:25 Test Item Value Reference Range Interpretation Comments POC-GLUCOSE METER 234 mg/dL 70-110 H : TESTED A T [facility] 6720 (BEAKER) (test code = [facility], 1538) 25578: Election Assistant/Techni edgar ID = [id number] for RAIMUNDO SINGH POCT-GLUCOSE [id number] 20:39:36 Test Item Value Reference Range Interpretation Comments POC-GLUCOSE METER 249 mg/dL 70-110 H : TESTED A T [facility] 6720 (BEAKER) (test code = [facility], 1538) 34280: Election Assistant/Techni edgar ID = [id number] for BABAR NOVOA POCT-GLUCOSE [id number] 17:41:40 Test Item Value Reference Range Interpretation Comments POC-GLUCOSE METER 180 mg/dL 70-110 H : TESTED A T [facility] 6720 (BEAKER) (test code = [facility], 1538) 86169: Election Assistant/Techni edgar ID = [id number] for Jeannette Foster Urinalysis w/Microscopic + Reflex to [id number] 17:33:49 Test Item Value Reference Range Interpretation Comments Color, UA (test code Yellow = 5778-6) Clarity, UA (test Clear code = 5767-9) Specific [place], UA 1.021 1.001-1.035 (test code = 5811-5) pH, UA (test code = 5.5 5.0-8.0 5803-2) Protein, UA (test 30 mg/dL Negative A code = 20525-4) Glucose, UA (test Negative Negative code = 365) Ketones, UA (test Negative Negative code = 2514-8) Bilirubin, UA (test Negative Negative code = 58385-1) Blood, UA (test code Negative Negative = 74384-6) Nitrite, UA (test Negative Negative code = 5802-4) Leukocytes, UA (test Negative Negative code = 5799-2) Urobilinogen, UA 0.2 0.2-1.0 (test code = 07368-5) RBC, UA (test code = <1 See_Comment [Autom ated 07366-3) message] The system which generated this result [...] = 2795) SAMPSON (test code = SAMPSON) Election Assistant ID - [auto] Lab Interpretation Abnormal (test code = 81944-1) [facility] URINE [id number] 17:33:49 Test Item Value Reference Range Interpretation [...] < /HPF SOURCE(BEAKER) (test code = 2795) Election Assistant ID - [auto]POCT-GLUCOSE [id number] 12:30:56 Test Item Value Reference Range Interpretation Comments POC-GLUCOSE METER 241 mg/dL 70-110 H : TESTED A T [facility] 6720 (BEAKER) (test code = [facility], 1538) 81808: Election Assistant/Techni edgar ID = [id number] for Jeannette Foster POCT-GLUCOSE [id number] 08:29:42 Test Item Value Reference Range Interpretation Comments POC-GLUCOSE METER 184 mg/dL 70-110 H : TESTED A T [facility] 6720 (BEAKER) (test code = [place] [facility], 1538) 674[address]: Election Assistant/Techni edgar ID = [id number] for Jeannette Foster HEPATIC FUNCTION [id number] 07:41:31 Test Item Value Reference Range Interpretation [...] (test code = 25 U/L 6-55 347) Election Assistant ID - JACINTO LBASIC METABOLIC [id number] 07:41:30 Test Item Value Reference Range Interpretation [...] not appl icable for dialysis patien ts Election Assistant ID - JACINTO [id number] 07:41:30 Test Item Value Reference Range Interpretation Comments MAGNESIUM (BEAKER) (test code = 1.8 mg/dL 1.6-2.6 627) Election Assistant ID - JACINTO LCBC W/PLT COUNT & AUTO [id number] 04:22:06 Test Item Value Reference Range Interpretation [...] PERCENT (BEAKER) (test code = 2801) POCT-GLUCOSE [id number] 21:14:44 Test Item Value Reference Range Interpretation Comments POC-GLUCOSE METER 151 mg/dL 70-110 H : TESTED A T [facility] 6720 (BEAKER) (test code = [facility], 1538) 28479: Election Assistant/Techni edgar ID = [id number] for LIU NOVOAO POCT-GLUCOSE [id number] 17:37:39 Test Item Value Reference Range Interpretation Comments POC-GLUCOSE METER 174 mg/dL 70-110 H : TESTED A T [facility] 6720 (BEAKER) (test code = [facility], 1538) [address]: Election Assistant/Techni edgar ID = [id number] for LIU NOVOAO Respiratory Panel [id number] 15:45:57 Test Item Value Reference Range Interpretation Comments Human Metapneumovirus Not detected Not detected, (test code = 75160-5) Equivocal Rhinovirus (test code = Not detected Not detected, 86677-3) Equivocal INFLUENZA A (NO Not detected Not detected, SUBTYPE) (test code = Equivocal 55444-0) Influenza A subtype H1 (test code = 88947-7) Influenza A Subtype H3 (test code = 99805-6) Influenza A Subtype H1-2009 (test code = 38861-0) Influenza B (test code Not detected Not detected, = 97739-5) Equivocal Respiratory Syncytial Not detected Not detected, Virus (test code = Equivocal 31448-7) Parainfluenza Virus 1 Not detected Not detected, (test code = 71243-6) Equivocal Parainfluenza Virus 2 Not detected Not detected, (test code = 13769-4) Equivocal Parainfluenza virus 3 Not detected Not detected, (test code = 59108-6) Equivocal Parainfluenza Virus 4 Not detected Not detected, (test code = 30254-3) Equivocal Adenovirus (test code = Not detected Not detected, 15749-7) Equivocal Coronavirus 229E (test Not detected Not detected, code = 24511-2) Equivocal Coronavirus HKU1 (test Not detected Not detected, code = 35191-7) Equivocal Coronavirus NL63 (test Not detected Not detected, code = 06612-6) Equivocal Coronavirus OC43 (test Not detected Not detected, code = 98608-6) Equivocal Bordetella Pertussis Not detected Not detected, (test code = 46954-0) Equivocal Chlamydophila Not detected Not detected, Pneumoniae (test code = Equivocal 29372-2) Mycoplasma Pneumoniae Not detected Not detected, (test code = 32838-0) Equivocal Severe Acute Not detected Not detected, Gicbdmzrmtq-EuD-1 (test Equivocal code = 50617-5) Bordtella Parapertussis Not detected Not detected, (test code = 02784-0) Equivocal SAMPSON (test code = SAMPSON) Other viruses and bacteria not targeted by this PCR panel cannot be excluded; therefore clinical correlation and follow up of serology, culture results, and other molecular studies is required. The results are not intended to be used as the sole means for clinical diagnosis or patient management decisions. This sample was tested at the [facility] using the TaigenArray Respiratory Panel. It is FDA cleared and has been verified and approved by the [facility] for clinical use on nasopharyngeal swab specimens. The performance of the FilmArray RP has not been established in individuals who received influenza vaccine. Recent administration of a nasal influenza vaccine may cause false positive results for Influenza A and/orInfluenza B. [facility] [id number] 15:45:57 Test Item Value Reference Range Interpretation [...] SEVERE ACUTE RESPIRATORY Not detected Not detected, DCBXBTSC-MZMNFLUMVPG-6 Equivocal (test code = 2965605) BORDETELLA PARAPERTUSSIS Not detected Not detected, (BKR) (test code = 3604401) Equivocal Other viruses and bacteria not targeted by this PCR panel cannot be excluded; therefore clinical correlation and follow up of serology, culture results, and other molecular studies is required. The results are not intended to be used as the sole means for clinical diagnosis or patient management decisions. This sample was tested at the [facility] using the WallStrip Respiratory Panel. It is FDA cleared and has been verified and approved by the [facility] for clinical use on nasopharyngeal swab specimens.The performance of the FilmArrayRP has not been established in individuals who received influenza vaccine. Recent administration of a nasal influenza vaccine may cause false positive results for Influenza A and/orInfluenza B.POCT-GLUCOSE [id number] 12:35:54 Test Item Value Reference Range Interpretation Comments POC-GLUCOSE METER 213 mg/dL 70-110 H : TESTED A T [facility] 6720 (BEAKER) (test code = MARGO White [facility], 1538) 05681: Election Assistant/Techni edgar ID = [id number] for SUNNY MURRIETA POCT-GLUCOSE [id number] 07:54:11 Test Item Value Reference Range Interpretation Comments POC-GLUCOSE METER 170 mg/dL 70-110 H : TESTED A T [facility] 6720 (BEAKER) (test code = [facility] Cindy [facility], 1538) 860[address]: Election Assistant/Techni edgar ID = [id number] for SUNNY MURRIETA [id number] 05:30:53 Test Item Value Reference Range Interpretation Comments MAGNESIUM (BEAKER) (test code = 1.8 mg/dL 1.6-2.6 627) Election Assistant ID - FAWADAYA LHEPATIC FUNCTION [id number] 05:30:53 Test Item Value Reference Range Interpretation [...] (test code = 25 U/L 6-55 347) Election Assistant ID - PIAYA LBASIC METABOLIC [id number] 05:30:52 Test Item Value Reference Range Interpretation [...] not appl icable for dialysis patien ts Election Assistant ID - PIAYA LCBC W/PLT COUNT & AUTO [id number] 04:49:59 Test Item Value Reference Range Interpretation [...] (test code = 2801) CT, CHEST, WITHOUT [id number] 21:50:00Evaluate for pneumonia [facility] CENTERName: BILLY FLAHERTY : 1945 [...] no evidence of pneumonia. Signed: Valerio Pantoja [facility] VerifiedDate/Time: 02/18/2022 21:50:15 VANCOMYCIN LEVEL, RANDOM 2022-02-18 21:20:55 Test Item Value Reference Range Interpretation Comments VANCOMYCIN RANDOM (CLAUDIO) (test 5.7 ug/mL code = 523) Reference Range: No NormalsOperator ID - PIAYA LPOCT-GLUCOSE [id number] 21:02:39 Test Item Value Reference Range Interpretation Comments POC-GLUCOSE METER 216 mg/dL 70-110 H : TESTED A T [facility] 6720 (CLAUDIO) (test code = MARGO White [facility], 1538) 86703: Election Assistant/Techni edgar ID = [id number] for PH ILIPMARIEL Strep pneumoniae antigen [id number] 20:45:57 Test Item Value Reference Range Interpretation Comments Strep pneumoniae Presumptive negative Presumptive Antigen (test code = [place] [address]-7) pneumonia - see pneumococcal comment pneumonia - [...] test. Lab Interpretation Normal (test code = 66008-7) [facility]NE[facility] [id number] 20:45:57 Test Item Value Reference Range Interpretation Comments STREP PNEUMONIAE Presumptive negative Presumptive negative ANTIGEN ([facility]) for pneumococcal for pneumococcal (test code = 1615) pneumonia - see pneumonia - see comment commen Presumptive negative for pneumococcal pneumonia, suggesting no current or recent pneumococcal infection. Infection due to S. pneumoniae cannot be ruled out since the antigen present in the sample may be below the detection limit of the test.POCT-GLUCOSE [id number] 18:19:48 Test Item Value Reference Range Interpretation Comments POC-GLUCOSE METER 243 mg/dL 70-110 H : TESTED A T [facility] 6720 (Spendji) (test code = MARGO White [facility], 1538) 38212: Election Assistant/Techni edgar ID = [id number] for CR UZ, BRADY 2D Echo W/Doppler(CW/PW/Color)2022-02-18 16:51:10Ejection FractionSLEH ECHO HEARTLAB MKCKESSON CPACSCHI [facility] HospitalPOCT-GLUCOSE [id number] 13:40:08 Test Item Value Reference Range Interpretation Comments POC-GLUCOSE METER 140 mg/dL 70-110 H : TESTED A T [facility] 6720 (Spendji) (test code = [place]CE[place] Cindy [facility], 1538) 34203: Election Assistant/Techni edgar ID = [id number] for CO RTEZ, TARI SARS-COV2/RT-PCR ([facility])2022-02-18 13:02:31 Test Item Value Reference Range Interpretation Comments SARS-COV2/RT-PCR Negative Negative The SARS-Co V-2 target (test code = nucleic acids a re not 4458962) detected in thi s specimen. Negative result [...] revoked sooner. Fact Sheet for Healthcare Providers: https://www.Lvmae m/Documents/Xpert%20Xpress%20SARS%20CoV-2/Fact%20Sheets/302-3802%05ZITH-NYE-7%20 HEALTHCARE%20PROVIDERS%20FACT%20SHEET.pdf Fact Sheet for Healthcare Patients: https://www.SimpleHoney/Documents/Xpert%20Xp ress%20SARS%20CoV-2/Fact%20Sheets/302-3801%66YSVO-ZER-8%20PATIENT%20FACT%20SHEET .pdfHEMOGLOBIN [id number] 09:43:51 Test Item Value Reference Range Interpretation [...] 5.7- 6.4% indicates increased risk for diabetes (prediabetes)."Election Assistant ID - ADMRAD, CHEST, 1 VIEW, NON [id number] 08:26:00Reason for exam:->SOBShould this be performed at the bedside?->Yes ALTAGRACIA [facility] : 1945 Sex: MFINAL REPORT [...] MDReport Verified Date/Time: 02/18/2022 08:26:10 HEPATIC FUNCTION [id number] 05:50:59 Test Item Value Reference Range Interpretation [...] (test code = 22 U/L 6-55 347) Election Assistant ID - JACINTO LLIPID [id number] 05:50:58 Test Item Value Reference Range Interpretation [...] Borderline 130-159 High 160-189 Very High >=190 Election Assistant ID - JACINTO [id number] 05:50:57 Test Item Value Reference Range Interpretation Comments MAGNESIUM (BEAKER) (test code = 1.6 mg/dL 1.6-2.6 627) Election Assistant ID - JACINTO [id number] 05:50:57 Test Item Value Reference Range Interpretation Comments PHOSPHORUS (BEAKER) (test code = 2.9 mg/dL 2.3-4.7 604) Election Assistant ID - JACINTO LBASIC METABOLIC [id number] 05:50:56 Test Item Value Reference Range Interpretation [...] not appl icable for dialysis patien ts Election Assistant ID - PIAYA LCBC W/PLT COUNT & AUTO [id number] 05:31:08 Test Item Value Reference Range Interpretation [...] PERCENT (BEAKER) (test code = 2801) PROTHROMBIN TIME/[id number] 05:13:59 Test Item Value Reference Range Interpretation Comments PROTIME (BEAKER) 18.1 seconds 11.9-14.2 H (test code = 759) INR (BEAKER) (test 1.61 See_Comment [Automat ed message] code = 370) The system Appography generated this result transmitted ref erence range: <=5.90. The reference range was not used to int erpret this result as normal/abnormal . RECOMMENDED COUMADIN/WARFARIN INR THERAPY RANGESSTANDARD DOSE: 2.0 - 3.0 Includes: PROPHYLAXIS for venous thrombosis, systemic embolization; TREATMENT for venous thrombosis and/or pulmonary embolus.HIGH RISK: Target INR is 2.5-3.5 for patients with mechanical heart valves.2D Echo W/Doppler(CW/PW/Color) 2021-09-30 13:05:06Ejection FractionSLEH ECHO HEARTLAB [facility] Echo W/Doppler(CW/PW/Color)2021-09-30 13:05:06Ejection FractionSLEH ECHO HEARTLAB [facility] Echo W/Doppler(CW/PW/Color)2021-09-30 13:05:06Ejection FractionSLEH ECHO HEARTLAB [facility] Echo W/Doppler(CW/PW/Color) 2021-09-30 13:05:06Ejection FractionSLEH ECHO HEARTLAB [facility] LondonRAD, CHEST, 1 VIEW, NON [id number] 07:49:00post- operative day 1Reason for exam:->s/p tavrShould this be performed at the bedside?->YesANAHEIM [facility]ENTERName: [facility] : 1945 Sex: MFINAL REPORT RAD, CHEST, 1 VIEW, NON DEPT INDICATION: s/p tavr COMPARISON: None FINDINGS: Portable frontal view of the chest. IMPRESSION: No focal lung consolidation, pleural effusion or pneumothorax. Cardiomediastinal silhouette is magnified by technique. Intact osseous structures. Signed: Chico Ortiz Verified Date/Time: 09/30/2021 07:49:52 POC-Glucose [id number] 07:07:37 Test Item Value Reference Range Interpretation Comments POC-Glucose Meter (test 128 mg/dL 70-110 H : TE STED AT [facility] code = 1538) [address] [place] [address], 770 30: Election Assistant/Techni edgar ID = [id number] for MYNOR OSORIO Lab Interpretation (test Abnormal code = 81000-4) [facility] [id number] 07:07:37 Test Item Value Reference Range Interpretation Comments POC-Glucose Meter (test 128 mg/dL 70-110 H : TE STED AT [facility] code = 1538) 6720 [facility], 770 30: Election Assistant/Techni edgar ID = [id number] for MYNOR OSORIO Lab Interpretation (test Abnormal code = 70133-3) [facility] [id number] 07:07:37 Test Item Value Reference Range Interpretation Comments POC-Glucose Meter (test 128 mg/dL 70-110 H : TE STED AT [facility] code = 1538) [address] [place], 770 30: Election Assistant/Techni edgar ID = [id number] for MYNOR OSORIO Lab Interpretation (test Abnormal code = 20745-6) [facility]PO[facility] [id number] 07:07:37 Test Item Value Reference Range Interpretation Comments POC-GLUCOSE METER 128 mg/dL 70-110 H : TESTED A T [facility] 6720 (BEAKER) (test code = MARGO White [facility], 1538) 94643: Election Assistant/Techni edgar ID = [id number] for MYNOR OSORIO BASIC METABOLIC [id number] 05:24:00 Test Item Value Reference Range Interpretation [...] eGF R is based on the CKD-EPI 1 equation that d oes not use a race coefficientEsti mated GFR is not as accur ate as Creatinine Montserrat demetrius in predicting glom erular filtration rate . Estimated GFR is not appl icable for dialysis patien ts Election Assistant ID - PIAYA LCBC (HEMOGRAM ONLY)2021-09-30 04:59:49 [...] WBC 0-0 (test code = 413) POCT-GLUCOSE [id number] 22:03:55 Test Item Value Reference Range Interpretation Comments POC-GLUCOSE METER 162 mg/dL 70-110 H : Notified RN/MD: (BEAKER) (test code = TESTED AT [facility] 6472 8143) [facility], [address]: Election Assistant/Techni edgar ID = [id number] for JOVI GODINEZ Transesophageal [id number] 18:57:01Ejection FractionSLEH ECHO HEARTLAB MKCKESSON [facility] HeartTrans[facility] [id number] 18:57:01Ejection FractionSLEH ECHO HEARTLAB MKCKESSON [facility] HeartTransesophageal [id number] 18:57:01Ejection FractionSLEH ECHO HEARTLAB MKCKESSON [facility] HeartTransesophageal [id number] 18:57:01Ejection FractionSLEH ECHO HEARTLAB MKCKESSON [facility] ACTIVATED CLOTTING [id number] 16:21:30 Test Item Value Reference Range Interpretation Comments Activated Clotting Time 144 sec : 74 -137 seconds, (test code = 3184-9) Baselin e: TESTED AT [address], 770 30: Election Assistant/Techni edgar ID = [id number] for Go , [place] [facility] ACTIVATED CLOTTING [id number] 16:21:30 Test Item Value Reference Range Interpretation Comments Activated Clotting Time 144 sec : 74 -137 seconds, (test code = 3184-9) Baselin e: TESTED AT [address], 770 30: Election Assistant/Techni edgar ID = [id number] for Go , [place] [facility] ACTIVATED CLOTTING [id number] 16:21:30 Test Item Value Reference Range Interpretation Comments Activated Clotting Time 144 sec : 74 -137 seconds, (test code = 3184-9) Baselin e: TESTED AT [address], 770 30: Election Assistant/Techni edgar ID = [id number] for Go , [place] [facility] ACTIVATED CLOTTING [id number] 16:21:30 Test Item Value Reference Range Interpretation Comments Activated Clotting Time 144 sec : 74 -137 seconds, (test code = 3184-9) Baselin e: TESTED AT [address], 770 30: Election Assistant/Techni edgar ID = [id number] for Go , [place] [facility]PO[facility]-[id number] 16:21:30 Test Item Value Reference Range Interpretation Comments ACTIVATED CLOTTING TIME 144 sec : 74 -137 seconds, (BEAKER) (test code = Baseli ne: TESTED AT 441) [address], 770 30: Election Assistant/Techni edgar ID = [id number] for Go , [place] POCT-GLUCOSE [id number] 16:13:14 Test Item Value Reference Range Interpretation Comments POC-GLUCOSE METER 120 mg/dL 70-110 H : TESTED A T [place] [address] (BEAKER) (test code = [place], 1538) [address]: Election Assistant/Techni edgar ID = [id number] for LUCÍA OLIVARES Prepare [id number] 15:30:00 Test Item Value Reference Range Interpretation Comments CROSSMATCH (test code = COMPATIBLE 4) Unit ABO (test code = O Pos 8521985) UNIT NUMBER (test code = [id number] 934-0) Status (test code = RETURNED FROM ISSUE 15100508) Blood Bank Product (test RED BLOOD CELLS code = 2263) PRODUCT CODE (test code = C1218L03 933-2) [facility] [id number] 15:30:00 Test Item Value Reference Range Interpretation Comments CROSSMATCH (test code = COMPATIBLE 4) Unit ABO (test code = O Pos 5775261) UNIT NUMBER (test code = [id number] 934-0) Status (test code = RETURNED FROM ISSUE 15100508) Blood Bank Product (test RED BLOOD CELLS code = 2263) PRODUCT CODE (test code = A6274Z00 933-2) [facility] [id number] 15:30:00 Test Item Value Reference Range Interpretation Comments CROSSMATCH (test code = COMPATIBLE 4) Unit ABO (test code = O Pos 4392331) UNIT NUMBER (test code = [id number] 934-0) Status (test code = RETURNED FROM ISSUE 15100508) Blood Bank Product (test RED BLOOD CELLS code = 2263) PRODUCT CODE (test code = G6120N82 933-2) [facility] 15:30:00 Test Item Value Reference Range Interpretation Comments CROSSMATCH (test code = COMPATIBLE 4) Unit ABO (test code = O Pos 3801926) UNIT NUMBER (test code = [id number] 934-0) Status (test code = RETURNED FROM ISSUE 2556379) Blood Bank Product (test RED BLOOD CELLS code = 2263) PRODUCT CODE (test code = J9236E09 933-2) [facility]POCT-[id number] 15:15:20 Test Item Value Reference Range Interpretation Comments ACTIVATED CLOTTING TIME 184 sec : 74 -137 seconds, (BEAKER) (test code = Rian ne: TESTED AT 441) [facility] 6720 [facility], 770 30: Election Assistant/Techni edgar ID = [id number] for QUINCY CHURCHILL [id number] 14:20:35 Test Item Value Reference Range Interpretation Comments ACTIVATED CLOTTING TIME 277 sec : 74 -137 seconds, (BEAKER) (test code = Rian ne: TESTED AT 441) [facility] 6720 [facility], 770 30: Election Assistant/Techni edgar ID = [id number] for QUINCY CHURCHILL B-TYPE NATRIURETIC FACTOR (BNP)2021-09-23 16:28:06 Test Item Value Reference Range Interpretation Comments B-TYPE NATRIURETIC PEPTIDE (BEAKER) 91 pg/mL 0-100 (test code = 700) Election Assistant ID - ADMINCOMPREHENSIVE METABOLIC [id number] 15:51:41 Test Item Value Reference Range Interpretation [...] not appl icable for dialysis patien ts Election Assistant ID - ADMINCBC W/PLT COUNT & AUTO [id number] 15:40:59 Test Item Value Reference Range Interpretation [...] PERCENT (BEAKER) (test code = 2801) PROTHROMBIN TIME/[id number] 15:38:16 Test Item Value Reference Range Interpretation Comments PROTIME (BEAKER) 13.5 seconds 11.9-14.2 (test code = 759) INR (BEAKER) (test 1.05 See_Comment [Automat ed message] code = 370) The system Appography generated this result transmitted ref erence range: <=5.90. The reference range was not used to int erpret this result as normal/abnormal . RECOMMENDED COUMADIN/WARFARIN INR THERAPY RANGESSTANDARD DOSE: 2.0 - 3.0 Includes: PROPHYLAXIS for venous thrombosis, systemic embolization; TREATMENT for venous thrombosis and/or pulmonary embolus.HIGH RISK: Target INR is 2.5-3.5 for patients with mechanical heart valves.COVID 19 Asymptomatic IH [id number] 12:19:00 Test Item Value Reference Range Interpretation [...] or approved; the t est hasbeen authori tommyd by FDA under an Em ergency Use Authorizati on(EUA) for use by labo ratories certified under the CLIA thatmeet the requirements to perform moderate, high or waivedcomplexit y tests. 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 [place] : 1945 Sex: MName: BILLY FLAHERTY [facility] : 1945 Age/S: 76 / M [address] [place] [address] Unit#: [id number] Loc: [place] [address] Phys: PabloSolitarioyaneth [facility] Acct: [id number] Dis Date: Status: REG CLI PHONE #: [phone] Exam Date: 08/24/2021 1111 FAX #: [phone] Reason: AORTIC STENOSIS EXAMS: CPT CODE: [id number] CT ANGIO CHEST 52408 PROCEDURE INFORMATION: Exam: CTA Heart and Coronary [...] (includes targeted exams where dose is matched toclinical indication); or iterative reconstruction. Contrast material: ISOVUE [...] stenosis. Using a 3D workstation the aortic valvewas studied in multiple cardiac phases. At the [...] 1 Signed Report (CONTINUED) Name: BILLY FLAHERTY [facility] : 1945 Age/S: 76 / M [address] [place], [place] [address] Unit #: [id number] Loc: [place] [address] Phys: Neetu Shah Acct: [id number] Dis Date: Status: REG CLI PHONE #: [phone] Exam Date: 08/24/2021 1111FAX #: [phone] Reason: AORTIC STENOSIS EXAMS: CPT CODE: [id number] CT ANGIO CHEST 18955 (Continued) Incidental note was made of mild [...] Computed tomographic angiography of the abdomen and pelviswithout and with contrast. 3D rendering (Not supervised [...] 2 Signed Report (CONTINUED) Name: BILLY FLAHERTY [facility] :1945 Age/S: 76 / M [address] [place] [address] Unit #: [id number] Loc: [place] [address] Phys: Neetu Shah Acct: [id number] Dis Date: Status: REG CLI PHONE #: [phone] Exam Date: 08/24/2021 1111 FAX #: [phone] Reason: AORTIC STENOSIS EXAMS: CPT CODE: [id number] CT ANGIO CHEST 90209 (Continued) is infrarenal aorta demonstrate minimal atherosclerotic [...] Unremarkable. No solid mass. No hydronephrosis. Stomach andbowel: Unremarkable. No obstruction. No mucosal thickening. Appendix: No evidence of appendicitis. Intraperitoneal space: Unremarkable. No free air. No significant fluid collection. Urinary bladder: Unremarkable. No mass. Reproductive: Unremarkable as visualized. Lymph nodes: Unremarkable. No enlargedlymph nodes. Bones/joints: Mild osteopenia with degenerative changes of the bony pelvis and lumbar spine. IMPRESSION: Unremarkable CTA chest, abdomen, and pelvis. Minimal atherosclerotic calcificationto the distal aorta and common iliac arteries. Common femoral and iliac arteries are patent and well preserved. PAGE 3 Signed Report (CONTINUED) Name: BILLY FLAHERTY [facility] : 1945 Age/S: 76 / M [address] [place] [address] Blvd Unit #: [id number] Loc: [place] [address] Phys: Neetu Shah [facility] Acct: [id number] Dis Date: Status: REG CLI PHONE #: [phone] Exam Date: 08/24/2021 1111FAX #: [phone] Reason: AORTIC STENOSIS EXAMS: CPT CODE: [id number] CT ANGIO CHEST 87558 (Continued) at 2330 Reported and signed by: Trevor Villarreal M.D CC: Neetu Shah; Yann West DO; Nawaf Dotson MD Technologist:Russell Jimenez, RT(R)(CT) CTDI: DLP: Trnscb Date/Time: 08/24/2021 (2329) AryanCP26 Orig Print D/T:S: 08/24/2021 (2329) PAGE 4 Signed Report- CTA ABD PEL W [id number] 00:00:[address] [facility] [facility] [place] : 1945 Sex: MName: BILLY FLAHERTY [facility] : 1945 Age/S: 76 / M [address] [place] [address] Unit #: [id number] Loc: [facility] [place] [address] Phys: Neetu Shah Acct: [id number] Dis Date: Status: REG CLI PHONE #: [phone] Exam Date: 08/24/2021 1110 FAX #: [phone] Reason: AORTIC STENOSIS EXAMS: CPT CODE: [id number] CTA ABD PEL W CONT 88883 PROCEDURE INFORMATION: Exam: CTA Heart and Coronary Arteries Without and With Contrast Exam date and time: 08/24/2021 10:42 AM Age: 76 years old Clinical indication: Other: Aortic stenosis TECHNIQUE: Imaging protocol: Computed tomographic angiography ofthe heart, coronary arteries and bypass grafts (when present) without and with contrast including 3Dimage postprocessing (including evaluation of cardiac structure and [...] 106 mm. There is no significant calcification a ppreciated at the sino-tubular ridge. The aortic valve [...] 1 Signed Report (CONTINUED) Name: BILLY FLAHERTY [facility] : 1945 Age/S: 76 / M [address] [place] [address] Blvd Unit #: [id number] Loc: JONAH Fung [address] Phys: Neetu Shah Acct: [id number] Dis Date: Status: REG CLI PHONE #: [phone] Exam Date: 08/24/2021 1110 FAX #: [phone] Reason: AORTIC STENOSIS EXAMS: CPT CODE: [id number] CTA ABD PEL W CONT 15419 (C ontinued) Incidental note was made of mild to moderate calcification within the mitral valve. Left atrium appeared normal in AP dimension. The left atrial appendage appears to fill normally with contrast. There is no pericardial effusion. Lungs: Limited views of the lungs are unremarkable. Mediastinalspace: Limited views of the mediastinal space is [...] time: 08/24/2021 10:42 AM Age: 76 years oldClinical indication: Other: Aortic stenosis TECHNIQUE: Imaging protocol: [...] 2 Signed Report (CONTINUED) Name: [facility]LAHERTY [facility] [place] 1945 Age/S: 76 / M [address] [place], [place] [address] Unit #: [id number] Loc: JONAH Fung [address] Phys: Neetu Shah Acct: [id number] Dis Date: Status: REG CLI PHONE #: [phone] Exam Date: 08/24/2021 1110 FAX #: [phone] Reason: AORTIC STENOSIS EXAMS: CPT CODE: [id number] CTA ABD PEL W CONT 53753 (Continued) is infrarenal aorta demonstrate minimal atherosclerotic calcification. The distal aorta measures 16 mm. The right common iliac artery is patent with minimal atherosclerotic disease. The right hypogastric artery is patent. The right external iliac artery is patent. There is minimalposterior plaque to the right common femoral artery. There is a preserved bifurcation to the right common femoral artery. The left common iliac artery demonstrates minimal atherosclerotic calcificationand is patent. The left hypogastric artery is patent. There is minimal tortuosity to a patent left external iliac artery. The femoral artery is patent with a preserved bifurcation. His CHEST: Lungs: Unr emarkable. No consolidation. No masses. Pleural spaces: Unremarkable. No pneumothorax. No pleural effusion. Heart: Unremarkable. No cardiomegaly. No pericardial effusion. Mild mitral valvular calcification. Aortic valvular calcification. ABDOMEN AND PELVIS: Liver: No mass. Gallbladder and bile ducts: U nremarkable. No calcified stones. No ductal dilation. Pancreas: [...] 3 Signed Report (CONTINUED) Name: BILLY FLAHERTY [facility] : 1945 Age/S: 76 / M [address] [place], [place] [address] Unit #: [id number] Loc: JONAH Fung [address] Phys: YahirtommylavernConnerclotilde [facility] Acct: [id number] Dis Date: Status: REG CLI PHONE #: [phone] Exam Date: 08/24/2021 1110 FAX #: [phone] Reason: AORTIC STENOSIS EXAMS: CPT CODE: [id number] CTA ABD PEL W CONT [id number] (Continued) at 2330 Reported and signed by: Trevor Villarreal M.D CC: Neetu Shah; [facility] DO; Nawaf Dotson MD Technologist:Russell Jimenez, RT(R)(CT) CTDI: DLP: Trnscb Date/Time: 08/24/2021 (2329) [email or web address] Orig Print D/T: S: 08/24/2021 (2329) PAGE 4 Signed Report- CTA HEART W CN [id number] 00:00:[address] [facility] [place] : 1945 Sex: MName: BILLY FLAHERTY [facility] : 1945 Age/S: 76 / M [address] [place] [address] Unit #: [id number] Loc: FungJONAH [address] Phys: Neetu Shah Acct: [id number] Dis Date: Status: REG CLI PHONE #: [phone] Exam Date: 08/24/2021 1110 FAX #: [phone] Reason: EXAMS: CPT CODE:[id number] CTA HEART W CN ART/GRAFTS [id number] PROCEDURE INFORMATION: Exam: CTA Heart and Coronary [...] 1 Signed Report (CONTINUED) Name: BILLY FLAHERTY [facility] : 1945ge/S: 76 / M [address] [place] [address] Blvd Unit #: [id number] Loc: JONAH Fung [address] Phys: Carlitos Shah Acct: [id number] Dis Date: Status: REG CLI PHONE #: [phone] Exam Date: 08/24/2021 1110 FAX #: [phone] Reason: EXAMS: CPT CODE: [id number] CTA HEART W CN ART/GRAFTS [id number] (Continued) Incidental note was made of mild [...] 2 Signed Report (CONTINUED) Name: BILLY FLAHERTY [facility] : 1945ge/S: 76 / M [address] [place] [address] Blvd Unit #: [id number] Loc: JONAH Fung [address] Phys: Neetu Shah Acct: [id number] Dis Date: Status: REG CLI PHONE #: [phone] Exam Date: 08/24/2021 1110 FAX #: [phone] Reason: EXAMS: CPT CODE: [id number] CTA HEART W CN ART/GRAFTS [id number] (Continued) isinfrarenal aorta demonstrate minimal atherosclerotic calcification. [...] 3 Signed Report (CONTINUED) Name: BILLY FLAHERTY [facility] : 1945 Age/S: 76 / M [address] [place], [place] [address] Unit #: [id number] Loc: JONAH Fung [address] Phys: Neetu Shah Acct: [id number] Dis Date: Status: REG CLI PHONE #: [phone] Exam Date: 08/24/2021 1110 FAX #: [phone] Reason: EXAMS: CPT CODE: [id number] CTA HEART W CN ART/GRAFTS [id number] (Continued) at 2330 Reported and signed by: Trevor Villarreal M.D CC: Neetu Shah; Yannjosé West DO; Nawaf Dotson MD Technologist:Russell Jimenez, RT(R)(CT) CTDI: DLP: Trnscb Date/Time: 08/24/2021 (2329) [email or web address] Orig Print D/T: S: 08/24/2021 (2329) PAG E 4 Signed Report
[2022-12-05 01:41] LABS: Absolute Lymphocytes (CBC) 1.9 K/uL (0.7-4.9); Hematocrit 34.3 % (39.6-49.0); Lymphocytes % 12.8 % (15.3-44.8); MCV 83.3 fL (80-100); MPV 9.9 fL (7.6-11.3); Platelets 182 thou/uL (152-406); RBC Red Blood Cell Count 4.12 M/uL (4.33-5.43)
[2022-12-05 01:47] LABS: Protime INR 1.72
[2022-12-05 02:00] LABS: Albumin 3.5 g/dL (3.4-5.0); Bilirubin Direct 0.2 mg/dL (0-0.2); Bilirubin Indirect, Calculated 0.6 mg/dL (0.2-0.8); Bilirubin Total 0.8 mg/dL (0.2-1.0); Magnesium 2.4 mg/dL (1.6-2.4); Potassium 3.2 mEq/L (3.5-5.1); Protein, Total 9.3 g/dL (6.4-8.2); Troponin High Sensitivity 20.8 pg/mL (<58.9)
[2022-12-05] MEDS ORDERED: Meropenem 1000 MG/VIAL IV ONE (02:20)
[2022-12-05] MEDS ORDERED: NA CHLORIDE 0.9% 100 ML ONE (02:20)
[2022-12-05] MEDS ORDERED: VANCOMYCIN 1 GM/VIAL ONE (02:20)
[2022-12-05] MEDS ORDERED: NA CHLORIDE 0.9% 250 ML ONE (02:20)
[2022-12-05] MEDS ORDERED: NA CHLORIDE 0.9% 2,000 ML ONE (02:21)
[2022-12-05] MEDS ORDERED: LEVETIRACETAM 500 MG/5 ML VIAL IV ONE ×2 (02:27→02:35)
--- NOTE | 2022-12-05 02:46 | EDPHYS ---
Physician Documentation [facility] Name: Dwight Flaherty Age: 77 yrs Sex: Male : 1945 Arrival Date: 12/05/2022 Time: 00:52 Bed 19 Private MD: [facility] ED Physician Lion Rocha HPI: 12/05 01:20 This 77 yrs old Male presents to ER via Unassigned with complaints of Slurred Speech, sb4 Headache, Shaking, Shortness Of Breath. 01:20 The patient presents to the emergency department with a speech or higher order brain sb4 function problem, aphasia, difficult walking, the patient is off balance. Onset: The symptoms/episode began/occurred 12 hour(s) ago. Context:. Associated signs and symptoms: Pertinent positives: headache, Pertinent negatives: paresthesias, syncope, loss of vision. Patient's baseline: Neuro: alert and fully oriented, Motor: no deficits, Ambulation: walks with assist only, Speech: slow, slurred. Current symptoms: dysphasia, headache. The patient has not experienced similar symptoms in the past. Historical: - Allergies: 01:06 No Known Allergies; as6 - Home Meds: 01:06 allopurinol 300 mg Oral tab 1 tab once daily [Active]; baclofen 10 mg Oral tab 1 tab as6 daily [Active]; gabapentin 300 mg Oral cap 1 cap 2 times per day [Active]; glipizide 10 mg Oral tab 1 tab 2 times per day [Active]; hydralazine 100 mg Oral tab 1 tab 3 times per day [Active]; Levemir FlexTouch 100 unit/mL (3 mL) subcutaneous inpn 130 unit daily [Active]; Victoza 2-Malvin 0.6 mg/0.1 mL (18 mg/3 mL) subcutaneous pnij 1.8 units once daily [Active]; carvedilol 25 mg oral tablet 1 tab 2 times per day [Active]; bumetanide 2 mg Oral tablet 1 tab 2 times per day [Active]; omeprazole 40 mg Oral cpDR 1 cap once daily [Active]; rosuvastatin 10 mg Oral tab 1 tab once daily [Active]; Otezla 30 mg Oral tab 1 tab 2 times per day [Active]; Eliquis 5 mg oral tablet 1 tab 2 times per day [Active]; - PMHx: 01:06 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 - Social history:: Smoking status: Patient denies any tobacco usage or history of. ROS: 01:20 Constitutional: Negative for fever, chills, and weight loss, sb4 01:20 Neuro: Positive for gait disturbance, headache, weakness, 01:20 All other systems are negative, Exam: 01:20 Constitutional: This is a well developed, well nourished patient who is awake, alert, sb4 and in no acute distress. Head/Face: Normocephalic, atraumatic. Eyes: Extra-ocular motions intact. Periorbital areas with no swelling, redness, or edema. ENT: Mucous membranes moist. Cardiovascular: Regular rate and rhythm with a normal S1 and S2. Respiratory: Lungs have equal breath sounds bilaterally, clear to auscultation and percussion. No rales, rhonchi or wheezes noted. No increased work of breathing, no retractions or nasal flaring. Abdomen/GI: Soft, non-tender, no distension. 01:20 Neuro: Orientation: is normal, to person, place, time \T\ situation. Mentation: is normal, appropriate for stated age, lucid, able to follow commands, Memory: is normal, 01:27 ECG was reviewed by the Attending Physician. sb4 02:31 Neuro: Cranial nerves: visual [place] are intact. extraocular movements are intact, sb4 Facial palsy and sensory deficits are absent. no gross hearing deficit,. Nystagmus is absent. Speech is slowed, slurred, Motor: moves all fours, Sensation: is normal, no obvious gross deficits, seizure activity, is not displayed by the patient, Vital Signs: 01:00 BP 109 / 55; Pulse 94; Temp 98.7(O); Pulse Ox 97% on R/A; Weight 146.96 kg (M); Height lg3 6 ft. 8 in. (R); 01:18 BP 140 / 68; Pulse 86; Resp 26 S; Pulse Ox 98% on R/A; lg3 01:31 BP 126 / 69; Pulse 88; Resp 17 S; Pulse Ox 98% on R/A; lg3 01:52 BP 93 / 38; Pulse 85; Resp 22; Pulse Ox 97% on R/A; lg3 02:10 BP 148 / 66; Pulse 83; Resp 15 S; Pulse Ox 100% on R/A; lg3 03:10 BP 105 / 66; Pulse 84; Resp 18; Pulse Ox 98% on 2 lpm NC; km8 03:46 BP 136 / 56; Pulse 81; Resp 16 S; Pulse Ox 98% on 2 lpm NC; lg3 04:45 BP 102 / 52; Pulse 78; Resp 14 S; Pulse Ox 96% on 2 lpm NC; lg3 05:30 BP 105 / 52; Pulse 74; Resp 14 S; Pulse Ox 96% on 2 lpm NC; lg3 06:15 BP 111 / 52; Pulse 72; Resp 14 S; Pulse Ox 98% on 2 lpm NC; lg3 01:00 Body Mass Index 35.59 (146.96 kg, 203.2 cm) lg3 NIH Stroke Scale Scores: 01:21 NIHSS Score: 4 lg3 MDM: 00:57 Patient medically screened. sb4 02:27 Data reviewed: vital signs, nurses notes, lab test result(s), EKG, radiologic studies, jose CT scan, plain films. Consideration of Admission/Observation Escalation of care including admission/observation considered. I considered the following discharge prescriptions or medication management in the emergency department Medications were administered in the Emergency Department. See MAR. Independent interpretation of the following test(s) in the Emergency Department EKG: See my EKG interpretation above. Test considered but Not performed: Ultrasound no abd usg. Care significantly affected by the following chronic conditions: Diabetes, Hypertension, Congestive Heart Failure, Obesity, Chronic Kidney Disease, pna , irr pulse. Counseling: I had a detailed discussion with the patient and/or guardian regarding the historical points, exam findings, and any diagnostic results supporting the discharge/admit diagnosis, lab results, radiology results, the need to transfer to another facility, for higher level of care, [facility] does not immediately have the required specialist. 02:48 Transition of care: After a detail discussion of the patient's case, care is sb4 transferred to Lion Rocha MD. 12/05 01:05 Order name: Basic Metabolic Panel; Complete Time: 02:30 sb4 12/05 01:05 Order name: CBC with Diff; Complete Time: 01:42 sb4 12/05 01:05 Order name: Hepatic Function; Complete Time: 02:30 sb4 12/05 01:05 Order name: High Sensitivity Troponin; Complete Time: 02:30 sb4 12/05 01:05 Order name: Magnesium; Complete Time: 02:30 sb4 12/05 01:05 Order name: Protime (+inr); Complete Time: 01:49 sb4 12/05 01:05 Order name: Ptt, Activated; Complete Time: 01:49 sb4 12/05 01:38 Order name: Blood Culture Adult (2) as6 12/05 01:38 Order name: Lactate w/ 2H reflex if indic.; Complete Time: 03:27 as6 12/05 01:38 Order name: Lactate w/ 2H reflex if indic. sb4 12/05 01:54 Order name: UAM; Complete Time: 04:25 sb4 12/05 01:54 Order name: UDS; Complete Time: 04:25 sb4 12/05 02:03 Order name: Flu jose 12/05 02:03 Order name: COVID-19 SARS RT PCR; Complete Time: 04:00 jose 12/05 02:13 Order name: NT PRO-BNP; Complete Time: 02:30 EDMS 12/05 02:16 Order name: ABG; Complete Time: 03:27 jose 12/05 03:11 Order name: Glucose, Ancillary Testing; Complete Time: 03:27 EDMS 12/05 05:42 Order name: Lactate Sepsis 2 HR Follow-up EDCT 12/05 01:05 Order name: CT Stroke Brain w/o Contrast sb4 12/05 01:05 Order name: Stroke CXR 1 View sb4 12/05 01:46 Order name: Extrem Venous W Compression Florian US sb4 12/05 01:47 Order name: Carotid Artery Bilateral US sb4 12/05 02:03 Order name: CT Chest Abdomen Pelvis W/O Contrast [facility] 12/05 01:05 Order name: EKG; Complete Time: 01:06 sb4 12/05 01:05 Order name: Accucheck; Complete Time: 01:27 sb4 12/05 01:05 Order name: Cardiac monitoring; Complete Time: 01:26 sb4 12/05 01:05 Order name: EKG - Nurse/Tech; Complete Time: : sb4 12/05 01:05 Order name: IV Saline Lock; Complete Time: : sb4 12/05 01:05 Order name: Labs collected and sent; Complete Time: : sb4 12/05 01:05 Order name: NPO; Complete Time: : sb4 12/05 01:05 Order name: O2 Per Protocol; Complete Time: : sb4 12/05 01:05 Order name: O2 Sat Monitoring; Complete Time: : sb4 12/05 01:05 Order name: Stroke Swallow Screen; Complete Time: 02:43 sb4 12/05 02:02 Order name: Singh; Complete Time: 03:39 [facility] 12/05 02:13 Order name: Seizure Precautions; Complete Time: 02:23 [facility] EC: Rate is 86 beats/min. Rhythm is regular, Normal Sinus Rhythm with 1st degree heart sb4 block. Left axis deviation noted. CO interval is prolonged at 252 msec. QRS interval is normal at 126 msec. QT interval is normal at [address] changes noted. Clinical impression: Abnormal EKG without significant change, 1st degree heart block, LVH, and No evidence of ischemia. Interpreted by me. Reviewed by me. Administered Medications: 02:16 CANCELLED (Duplicate Order): ns 0.9% 1000 ml IV at 1 bolus Per protocol; 1000 mL bolus [facility] 02:22 Drug: NS 0.9% IV 1000 ml IV at 125 ml/hr continuous Route: IV; Rate: 125 ml/hr; Site: lg3 left forearm; 07:13 Follow up: Response: No adverse reaction; IV Status: Infusion continued upon transfer; lg3 IV Intake: 500ml 02:23 Drug: NS 0.9% IV 1000 ml IV at 1 bolus Per protocol; 1000 mL bolus Route: IV; Rate: 1 lg3 bolus; Site: left forearm; 03:06 Follow up: Response: No adverse reaction; IV Status: Completed infusion; IV Intake: lg3 1000ml 02:27 Drug: Meropenem IV 1 grams IV at calculated rate once; (mix in NS 100 mL) Route: IV; lg3 Rate: calculated rate; Site: left forearm; 03:07 Follow up: Response: No adverse reaction; IV Status: Completed infusion; IV Intake: lg3 100ml 02:30 Drug: Keppra IV 1000 mg IV at per protocol once Route: IV; Rate: per protocol; Site: lg3 right forearm; 03:07 Follow up: Response: No adverse reaction; IV Status: Completed infusion; IV Intake: [id number] 02:57 Drug: vancoMYCIN IVPB 1 grams IVPB once over 2 hrs Route: IVPB; Infused Over: 2 hrs; lg3 Site: right forearm; 04:44 Follow up: Response: No adverse reaction; IV Status: Completed infusion km8 03:05 Drug: Potassium PO Effervescent Tablet 25 mEq PO once; dissolve in 4 ounces of water or lg3 juice Route: PO; 03:07 Follow up: Response: No adverse reaction 3 03:06 Drug: Solu-CORTEF IVP 100 mg IVP once Route: IVP; Site: left forearm; lg3 03:07 Follow up: Response: No adverse reaction 3 03:56 Drug: foLIC Acid IVPB 1 mg IVPB once Route: IVPB; Site: left forearm; km8 03:57 Follow up: IV Status: Completed infusion km8 04:44 Follow up: Response: No adverse reaction km8 Disposition: 02:27 Co-signature as Attending Physician, Lion Rocha MD I agree with the assessment and jose plan of care. Disposition Summary: 12/05/22 02:45 Transfer Ordered Notes: Transfer Location: [facility] jose Reason: Higher level of care jose Condition: Serious jose Problem: new jose Symptoms: have improved jose Accepting Physician: to ccu, [facility](12/05/22 07:17) lg3 Diagnosis - Sepsis, unspecified organism jose - Hypotension, unspecified jose - Cellulitis and acute lymphangitis of other parts of limb - right lower extremity jose - Elevated white blood cell count jose - Hypokalemia jose - [facility] (current) use of anticoagulants - eliquis 5 mg bid jose - Type 1 diabetes mellitus with hyperglycemia jose - Obesity, unspecified jose - Weakness jose - Unspecified kidney failure - chronic jose - Hypo-osmolality and hyponatremia jose - Retention of urine, unspecified - 1000 jose - Other seizures - bilateral internal carotid stenosis(12/05/22 04:08) jose Forms: - Medication Reconciliation Form jose - SBAR form jose NIH Stroke Scale - NIH Stroke Score Date: 12/05/2022 Time: 01:21 Total Score = 4 10. Dysarthria (speech clarity - read or repeat words) - 1(Mild to Moderate) 11. Extinction and Inattention (visual/tactile/auditory/spatial/personal) - 0(No abnormality) 1a. Level of Consciousness (LOC) - 1(Not Alert) 1b. Level of Consciousness (LOC) (Month \T\ Age) - 0(Both) 1c. LOC Commands (Open \T\ Closes Eyes/Power [employer] Electric[employer]) - 0(Both) 2. Best Gaze (Lateral Gaze Paresis) - 0(Normal) 3. Visual Field Loss - 0(No visual loss) 4. Facial Palsy - 0(Normal) 5a. Left Arm: Motor (10-second hold) - 0(No drift) 5b. Right Arm: Motor (10-second hold) - 0(No drift) 6a. Left Leg: Motor (5-second hold - always test supine) - 0(No drift) 6b. Right Leg: Motor (5-second hold - always test supine) - 0(No drift) 7. Limb Ataxia (finger/nose \T\ heel/becker - test with eyes open) - 0(Absent) 8. Sensory Loss (pinprick arms/legs/face) - 1(Mild to moderate loss) 9. Best Language: Aphasia (description/naming/reading) - 1(Mild to moderate aphasia) Initials: lg3 Signatures: Dispatcher [employer] EDMS Lion Rocha MD MD cha Gibson, Lacie, RN RN lg3 Alexander Dominguez RN RN as6 Hollie Conde PA-C PAMani sb4 Maria Eugenia Harrison RN RN km8 Corrections: (The following items were deleted from the chart) 01:28 01:20 Constitutional: This is a well developed, well nourished patient who is sb4 awake, alert, and in no acute distress. Head/Face: Normocephalic, atraumatic. Eyes: Extra-ocular motions intact. Periorbital areas with no swelling, redness, or edema. ENT: Mucous membranes moist. Cardiovascular: Regular rate and rhythm with a normal S1 and S2. Respiratory: Lungs have equal breath sounds bilaterally, clear to auscultation and percussion. No rales, rhonchi or wheezes noted. No increased work of breathing, no retractions or nasal flaring. Abdomen/GI: Soft, non-tender, no distension. Skin: Warm, dry with normal turgor. Normal color with no rashes, no lesions, and no evidence of cellulitis. sb4 02:13 02:01 PROBNP+C.LAB.BRZ ordered. EDMS EDMS 02:14 01:38 BLOOD CULTURE*+BA.LAB.BRZ ordered. EDMS EDMS 02:16 02:01 NS 0.9% IV 1000 ml IV at 1 bolus Per protocol; 1000 mL bolus ordered. jose jose 02:17 01:46 Chest For PE Angio+CT.RAD.BRZ ordered. EDMS EDMS 02:48 02:45 to ccu jose jose 02:56 02:48 to ccu jose jose 02:57 02:56 to ccu jose jose 02:58 02:57 to ccu jose jose 03:28 02:58 to ccu, [facility] jose jose 03:33 03:28 to ccu, [facility] jose jose 04:05 03:33 to ccu, [facility] jose jose 04:08 03:33 Other seizures jose jose 04:08 04:05 to ccu, [facility] jose jose 07:17 04:08 to ccu, [facility] jose lg3
--- NOTE | 2022-12-05 02:46 | ER ---
Nurse's Notes [facility] Name: Dwight Flaherty Age: 77 yrs Sex: Male : 1945 Arrival Date: 12/05/2022 Time: 00:52 Bed 19 Private MD: Yann Diaz Diagnosis: Sepsis, unspecified organism;Hypotension, unspecified;Cellulitis and acute lymphangitis of other parts of limb-right lower extremity;Elevated white blood cell count;Hypokalemia;group home (current) use of anticoagulants-eliquis 5 mg bid;Type 1 diabetes mellitus with hyperglycemia;Obesity, unspecified;Weakness;Unspecified kidney failure-chronic;Hypo-osmolality and hyponatremia;Other seizures-bilateral internal carotid stenosis;Retention of urine, unspecified-1000 Presentation: 12/05 01:18 Chief complaint: Patient's son or daughter states: weakness, slurred speech, and as6 shaking that started "lunch time" yesterday. Coronavirus screen: At this time, the client does not indicate any symptoms associated with coronavirus-19. Ebola Screen: No symptoms or risks identified at this time. An acute neurological deficit is present. The charge nurse has been notified. The patients blood glucose was checked before arriving to the hospital and was found to be normal. Initial Sepsis Screen: Does the patient meet any 2 criteria? No. Patient's initial sepsis screen is negative. Does the patient have a suspected source of infection? No. Patient's initial sepsis screen is negative. Risk Assessment: Do you want to hurt yourself or someone else? Patient reports no desire to harm self or others. Onset of symptoms was December 04, 2022 at 12:00. 01:18 Acuity: GENO 2 as6 01:18 Method Of Arrival: Wheelchair as6 Triage Assessment: 01:27 The onset of the patients symptoms was December 04, 2022 at 12:00. as6 Stroke Activation: Symptom onset > 6 hours Physician: Stroke Attending; Name: ; Notified At: ; Arrived At: Physician: Chief Stroke Resident; Name: ; Notified At: ; Arrived At: Physician: Stroke Resident; Name: ; Notified At: ; Arrived At: Physician: ED Attending; Name: ; Notified At: 01:00; Arrived At: Physician: ED Resident; Name: ; Notified At: ; Arrived At: Historical: - Allergies: 01:06 No Known Allergies; as6 - Home Meds: 01:06 allopurinol 300 mg Oral tab 1 tab once daily [Active]; baclofen 10 mg Oral tab 1 tab as6 daily [Active]; gabapentin 300 mg Oral cap 1 cap 2 times per day [Active]; glipizide 10 mg Oral tab 1 tab 2 times per day [Active]; hydralazine 100 mg Oral tab 1 tab 3 times per day [Active]; Levemir FlexTouch 100 unit/mL (3 mL) subcutaneous inpn 130 unit daily [Active]; Victoza 2-Malvin 0.6 mg/0.1 mL (18 mg/3 mL) subcutaneous pnij 1.8 units once daily [Active]; carvedilol 25 mg oral tablet 1 tab 2 times per day [Active]; bumetanide 2 mg Oral tablet 1 tab 2 times per day [Active]; omeprazole 40 mg Oral cpDR 1 cap once daily [Active]; rosuvastatin 10 mg Oral tab 1 tab once daily [Active]; Otezla 30 mg Oral tab 1 tab 2 times per day [Active]; Eliquis 5 mg oral tablet 1 tab 2 times per day [Active]; - PMHx: 01:06 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 - Social history:: Smoking status: Patient denies any tobacco usage or history of. Screenin:21 [facility] ED Fall Risk Assessment (Adult) History of falling in the last 3 months, lg3 including since admission No falls in past 3 months (0 pts). Abuse screen: Denies threats or abuse. Denies injuries from another. Nutritional screening: No deficits noted. Tuberculosis screening: No symptoms or risk factors identified. 02:00 Maureen Swallow Protocol Brief Cognitive Screen What is your name? Normal, Where are you lg3 right now? Normal, What year is it? Normal. Oral Mechanism Examination Facial Symmetry: Normal, Motion: Normal, Lip Closure: Normal, Oral Mechanism Result: Normal. 3 oz Water Swallow Challenge: Pt able to drink all water without stopping, coughing, choking or throat clearing: Yes Result: PASS MD Notified: Lion Rocha MD. Assessment: 01:00 General: pt became lethargic and unable to follow commands in CT. vitals obtained and lg3 documented. episode lasted approximately 5 min. pt back to baseline post completion of CT. provider notified. 01:21 VAN Scoring: Arm Drift: Patients demonstrates NO arm weakness. Patient is VAN Negative. lg3 Visual Disturbance: No visual disturbance noted. Aphasia: Patient exhibits both expressive and receptive aphasia. Provider notified of +VAN scoring. Neglect: No neglect noted. TNKase (Tenecteplase) Screening:. Pain: Complains of pain in neck. Neuro: Ledezma Agitation-Sedation Scale (RASS): -1 Drowsy Level of Consciousness is lethargic, Oriented to person, place, time, situation, intermittent confusion noted. Surveillance Sensor Officer are equal bilaterally Weakness in bilateral leg(s) Speech with expressive aphasia noted, Facial symmetry appears normal, Pupils are PERRLA, Intact. Neuro: Reports weakness. Cardiovascular: Denies chest pain, Capillary refill < 3 seconds Clubbing of nail beds is absent JVD is absent. Respiratory: Reports shortness of breath Airway is patent Respiratory effort is even, Respiratory pattern is tachypnea. GI: No deficits noted. No signs and/or symptoms were reported involving the gastrointestinal system. : No deficits noted. No signs and/or symptoms were reported regarding the genitourinary system. EENT: No deficits noted. No signs and/or symptoms were reported regarding the EENT system. Derm: No signs and/or symptoms reported regarding the dermatologic system. Skin is intact, is healthy with good turgor, Skin is diaphoretic, Skin is normal, Skin temperature is cool. Musculoskeletal: Circulation, motion, and sensation intact. Range of motion: intact in all extremities, Swelling present in right leg and left leg. 01:31 General: pt having another episode of lethargy, unable to follow commands, tachypneic lg3 and diaphoretic. providers at bedside. 01:35 General: daughter Erwin [phone]. lg3 01:52 General: pt having another episode of lethargy, unable to follow commands, hypotension, lg3 tachypnea and diaphoresis. provider at bedside. 02:55 General: General: while at CT pt became unresponsive with eyes rolling back in head and km8 shaking for about 15 seconds; pt was tachycardic during this episode; pt returned to being A\\T\\Ox4 immediately after. 03:10 General: upon arrival back to room from CT pt became unresponsive for about 10 seconds km8 with eyes closed; pt was able to recall his name once he was alert again. Dr. Rocha at bedside to re-evaluate pt. 03:30 General: Appears in no apparent distress. comfortable, Behavior is calm, cooperative. lg3 Neuro: Ledezma Agitation-Sedation Scale (RASS): -1 Drowsy Level of Consciousness is awake, Oriented to person, place, time, situation. Cardiovascular: No deficits noted. Denies chest pain. Respiratory: No deficits noted. Airway is patent Respiratory effort is even, unlabored, Respiratory pattern is regular, symmetrical. 04:17 General: daughter Mariola [phone]. lg3 05:30 Reassessment: Patient appears in no apparent distress at this time. Patient and/or lg3 family updated on plan of care and expected duration. Pain level reassessed. Patient is alert, oriented x 3, equal unlabored respirations, skin warm/dry/pink. pt quietly resting with eyes closed at this time. 06:57 Reassessment: Patient appears in no apparent distress at this time. Patient and/or lg3 family updated on plan of care and expected duration. Pain level reassessed. Patient is alert, oriented x 3, equal unlabored respirations, skin warm/dry/pink. pt quietly resting with eyes closed at this time Patient states symptoms have improved. Vital Signs: 01:00 BP 109 / 55; Pulse 94; Temp 98.7(O); Pulse Ox 97% on R/A; Weight 146.96 kg (M); Height lg3 6 ft. 8 in. (R); 01:18 BP 140 / 68; Pulse 86; Resp 26 S; Pulse Ox 98% on R/A; lg3 01:31 BP 126 / 69; Pulse 88; Resp 17 S; Pulse Ox 98% on R/A; lg3 01:52 BP 93 / 38; Pulse 85; Resp 22; Pulse Ox 97% on R/A; lg3 02:10 BP 148 / 66; Pulse 83; Resp 15 S; Pulse Ox 100% on R/A; lg3 03:10 BP 105 / 66; Pulse 84; Resp 18; Pulse Ox 98% on 2 lpm NC; km8 03:46 BP 136 / 56; Pulse 81; Resp 16 S; Pulse Ox 98% on 2 lpm NC; lg3 04:45 BP 102 / 52; Pulse 78; Resp 14 S; Pulse Ox 96% on 2 lpm NC; lg3 05:30 BP 105 / 52; Pulse 74; Resp 14 S; Pulse Ox 96% on 2 lpm NC; lg3 06:15 BP 111 / 52; Pulse 72; Resp 14 S; Pulse Ox 98% on 2 lpm NC; lg3 01:00 Body Mass Index 35.59 (146.96 kg, 203.2 cm) lg3 NIH Stroke Scale Scores: 01:21 NIHSS Score: 4 lg3 ED Course: 00:55 Patient arrived in ED. mr 00:55 Yann Diaz DO is Private Physician. mr 00:57 Hollie Conde PA-C is PHCP. sb4 00:57 Lion Rocha MD is Attending Physician. sb4 01:06 Arm band placed on. as6 01:12 Ciera Martin, RN is Primary Nurse. lg3 01:13 CT Stroke Brain w/o Contrast In Process Unspecified. EDMS 01:17 Inserted saline lock: 18 gauge in left forearm, using aseptic technique. km8 01:21 Triage completed. as6 01:21 Patient has correct armband on for positive identification. Placed in gown. Bed in low lg3 position. Call light in reach. Side rails up X2. Adult w/ patient. Client placed on continuous cardiac and pulse oximetry monitoring. NIBP monitoring applied. patient monitor on. Door closed. Noise minimized. Warm blanket given. Family accompanied patient. 01:21 Basic Metabolic Panel Sent. km8 01:21 CBC with Diff Sent. km8 01:21 Hepatic Function Sent. km8 01:21 High Sensitivity Troponin Sent. 8 :21 Magnesium Sent. 8 :21 Protime (+inr) Sent. 8 01:21 Ptt, Activated Sent. 8 01:21 Patient maintains SpO2 saturation greater than 95% on room air. lg3 01:26 Bed in low position. Call light in reach. Side rails up X2. Adult w/ patient. as6 01:49 Stroke CXR 1 View In Process Unspecified. EDMS 02:18 Blood Culture Adult (2) Sent. kmf 02:27 Lactate w/ 2H reflex if indic. Sent. lg3 02:33 COVID-19 SARS RT PCR Sent. lg3 02:34 Flu Sent. lg3 02:34 Lactate w/ 2H reflex if indic. Sent. lg3 02:35 Initiated transfer with Josseline Jamason at [facility]. rv1 02:46 Inserted saline lock: 20 gauge in left forearm, using aseptic technique. Blood kmf collected. 02:49 Extrem Venous W Compression Florian US In Process Unspecified. EDMS 02:49 Carotid Artery Bilateral US In Process Unspecified. EDMS 02:55 Oxygen administration via nasal cannula \\T\\ 2L/min. km8 03:13 CT Chest Abdomen Pelvis W/O Contrast In Process Unspecified. EDMS 03:38 Singh cath inserted, using sterile technique, 16 Fr., by ca, balloon inflated, to lg3 gravity drainage, clamped. urine specimen collected. returned clear yellow urine. Patient tolerated well. 03:39 UDS Sent. lg3 03:39 UAM Sent. lg3 03:39 COVID-19 SARS RT PCR Sent. lg3 03:39 Flu Sent. lg3 04:[address] Neves [address] [facility] Bed 716. rv1 05:24 Spoke with Zack at EMS for transfer truck, given 40 min ETA due to shift change. rv1 06:38 Called Zack at EMS to check on transfer truck ETA, said they had some 911 calls come rv1 up and a truck go out of service but a truck should be here shortly. 07:16 No provider procedures requiring assistance completed. Patient transferred, IV remains lg3 in place. intact, No redness/swelling at site. Administered Medications: 02:16 CANCELLED (Duplicate Order): ns 0.9% 1000 ml IV at 1 bolus Per protocol; 1000 mL bolus jose 02:22 Drug: NS 0.9% IV 1000 ml IV at 125 ml/hr continuous Route: IV; Rate: 125 ml/hr; Site: lg3 left forearm; 07:13 Follow up: Response: No adverse reaction; IV Status: Infusion continued upon transfer; lg3 IV Intake: 500ml 02:23 Drug: NS 0.9% IV 1000 ml IV at 1 bolus Per protocol; 1000 mL bolus Route: IV; Rate: 1 lg3 bolus; Site: left forearm; 03:06 Follow up: Response: No adverse reaction; IV Status: Completed infusion; IV Intake: lg3 1000ml 02:27 Drug: Meropenem IV 1 grams IV at calculated rate once; (mix in NS 100 mL) Route: IV; lg3 Rate: calculated rate; Site: left forearm; 03:07 Follow up: Response: No adverse reaction; IV Status: Completed infusion; IV Intake: lg3 100ml 02:30 Drug: Keppra IV 1000 mg IV at per protocol once Route: IV; Rate: per protocol; Site: lg3 right forearm; 03:07 Follow up: Response: No adverse reaction; IV Status: Completed infusion; IV Intake: [id number] 02:57 Drug: vancoMYCIN IVPB 1 grams IVPB once over 2 hrs Route: IVPB; Infused Over: 2 hrs; lg3 Site: right forearm; 04:44 Follow up: Response: No adverse reaction; IV Status: Completed infusion km8 03:05 Drug: Potassium PO Effervescent Tablet 25 mEq PO once; dissolve in 4 ounces of water or lg3 juice Route: PO; 03:07 Follow up: Response: No adverse reaction lg3 03:06 Drug: Solu-CORTEF IVP 100 mg IVP once Route: IVP; Site: left forearm; lg3 03:07 Follow up: Response: No adverse reaction lg3 03:56 Drug: foLIC Acid IVPB 1 mg IVPB once Route: IVPB; Site: left forearm; km8 03:57 Follow up: IV Status: Completed infusion km8 04:44 Follow up: Response: No adverse reaction km8 Medication: 01:27 VIS not applicable for this client. as6 Intake: 03:06 IV: 1000ml; Total: 1000ml. lg3 03:07 IV: 100ml; Total: 1100ml. lg3 03:07 IV: 50ml; Total: 1150ml. lg3 07:13 IV: 500ml; Total: 1650ml. lg3 Outcome: 02:45 ER care complete, transfer ordered by . jose 07:16 Transferred by ground EMS to [facility], Transfer form completed. lg3 07:16 Condition: stable 07:16 Instructed on the need for transfer, Demonstrated understanding of instructions, 07:17 Patient left the ED. lg3 NIH Stroke Scale - NIH Stroke Score Date: 12/05/2022 Time: 01:21 Total Score = 4 10. Dysarthria (speech clarity - read or repeat words) - 1(Mild to Moderate) 11. Extinction and Inattention (visual/tactile/auditory/spatial/personal) - 0(No abnormality) 1a. Level of Consciousness (LOC) - 1(Not Alert) 1b. Level of Consciousness (LOC) (Month \\T\\ Age) - 0(Both) 1c. LOC Commands (Open \\T\\ Closes Eyes/Crown Blocker) - 0(Both) 2. Best Gaze (Lateral Gaze Paresis) - 0(Normal) 3. Visual Field Loss - 0(No visual loss) 4. Facial Palsy - 0(Normal) 5a. Left Arm: Motor (10-second hold) - 0(No drift) 5b. Right Arm: Motor (10-second hold) - 0(No drift) 6a. Left Leg: Motor (5-second hold - always test supine) - 0(No drift) 6b. Right Leg: Motor (5-second hold - always test supine) - 0(No drift) 7. Limb Ataxia (finger/nose \\T\\ heel/becker - test with eyes open) - 0(Absent) 8. Sensory Loss (pinprick arms/legs/face) - 1(Mild to moderate loss) 9. Best Language: Aphasia (description/naming/reading) - 1(Mild to moderate aphasia) Initials: lg3 Signatures: Dispatcher [employer] EDMS Lion Rcoha MD MD cha Rivera [facility], [facility] mr Ciera Martin, PUMA BARTHOLOMEW lg3 Alexander Dominguez RN RN as6 Brown, Sophia, PAJulyC PA-C sbAkila River rvJolene Medina [facility] Maria Eugenia Harrison, PUMA RN km8 Corrections: (The following items were deleted from the chart) 01:23 01:22 Inserted saline lock: 18 gauge in left forearm, using aseptic technique. km8 km8 02:08 01:31 General: pt having another episode of lethargy, unable to follow lg3 commands, tachypneic and diaphoretic. providers at bedside. lg3 02:09 01:33 BP 126 / 69; Pulse 88bpm; Resp 17bpm; Spontaneous; Pulse Ox 98% RA; lg3 lg3 02:10 01:31 General: pt having another episode of lethargy, unable to follow lg3 commands, hypotension, tachypneic and diaphoretic. providers at bedside. lg3 03:04 02:44 Maureen Swallow Protocol Brief Cognitive Screen What is your name? Normal, lg3 Where are you right now? Normal, What year is it? Normal. Oral Mechanism Examination Facial Symmetry: Normal, Motion: Normal, Lip Closure: Normal, Oral Mechanism Result: Normal. 3 oz Water Swallow Challenge: Pt able to drink all water without stopping, coughing, choking or throat clearing: No Result: DARIAN MAJOR Notified: Lion Rocha MD 3 03:14 03:11 General: while at CT pt became unresponsive with eyes rolling back in km8 head and shaking for about 10 seconds; pt was tachycardic during this episode. General: while at CT pt became unresponsive with eyes rolling back in head and shaking for about 10 seconds; pt was tachycardic during this episode. [facility] 03:17 02:55 General: while at CT pt became unresponsive with eyes rolling back in km8 head and shaking for about 10 seconds; pt was tachycardic during this episode. General: while at CT pt became unresponsive with eyes rolling back in head and shaking for about 10 seconds; pt was tachycardic during this episode. [facility] 06:59 06:57 Reassessment: Patient appears in no apparent distress at this time. lg3 Patient and/or family updated on plan of care and expected duration. Pain level reassessed. Patient is alert, oriented x 3, equal unlabored respirations, skin warm/dry/pink. Patient states symptoms have improved. lg3
[2022-12-05 03:11] LABS: Arterial Blood Carboxyhemoglob 1.8 % (0-1.5); Blood Gas Oxyhemoglobin 91.4 % (94-97); Blood O2 Saturation 94.4 % (92-98.5)
[2022-12-05] MEDS ORDERED: POTASSIUM 25 MEQ EFFERV TAB ONE (03:15)
[2022-12-05] MEDS ORDERED: HYDROCORTISONE SUC 100 MG INJ ONE (03:18)
[2022-12-05] MEDS ORDERED: FOLIC ACID 5 MG/ML VIAL ONE (04:01)
[2022-12-05 04:14] LABS: Barbiturates NEGATIVE (NEGATIVE); Benzodiazepines NEGATIVE (NEGATIVE); Cocaine NEGATIVE (NEGATIVE); METHAMPHETAM NEGATIVE (NEGATIVE); Opiates NEGATIVE (NEGATIVE); Phencyclidine NEGATIVE (NEGATIVE); THC Cannibis NEGATIVE (NEGATIVE)
[2022-12-05 04:16] LABS: Methadone ND (NEGATIVE)
[2022-12-05 04:18] LABS: Specific Gravity 1.013 (1.005-1.030); Urine Bacteria <20 /HPF (<20); Urine Bilirubin NEGATIVE (Negative); Urine Blood Negative (Negative); Urine Clarity Turbid (Clear); Urine Color Light-Yellow (Yellow); Urine Glucose NEGATIVE (Negative); Urine Protein 1+ (Negative); Urine RBC <5 /HPF (None Seen); Urine Urobilinogen Normal (Normal); Urine pH 6.5 (5.0-7.0)
[2022-12-05 07:43] VITALS: TEMP 98.7
[2022-12-05 07:54] VITALS: BP 111/52; O2SAT 98
--- NOTE | 2022-12-05 12:14 | EKG ---
Test Date: 2022-12-05 Test Time: 01:23:26 World History Teacher: IMAN MEASUREMENT RESULTS: Intervals: Rate: 86 OK: 254 QRSD: 126 QT: 440 QTc: 526 [place]: P: 52 OK: 254 QRS: -32 T: 13 INTERPRETIVE STATEMENTS: Sinus rhythm with 1st degree AV block Left axis deviation Left ventricular hypertrophy with QRS widening Abnormal ECG Compared to ECG 12/05/2022 01:22:33 Fusion complex(es) no longer present Electronically Signed On 12-05-22 12:14:06 CDT by Nawaf Dotson
--- NOTE | 2022-12-05 12:14 | EKG ---
Test Date: 2022-12-05 Test Time: 01:22:33 Emergency Room Orderly: IMAN MEASUREMENT RESULTS: Intervals: Rate: 86 VA: 252 QRSD: 126 QT: 418 QTc: 500 [place]: P: 59 VA: 252 QRS: -31 T: 30 INTERPRETIVE STATEMENTS: Sinus rhythm with 1st degree AV block with fusion complexes Left axis deviation Left ventricular hypertrophy with QRS widening Abnormal ECG Compared to ECG 10/27/2022 22:21:18 Fusion complex(es) now present Left-axis deviation now present Left ventricular hypertrophy now present Ventricular premature complex(es) no longer present Left anterior fascicular block no longer present Myocardial infarct finding no longer present Electronically Signed On 12-05-22 12:14:09 CDT by Nawaf Dotson
--- NOTE | 2022-12-05 12:36 | RAD REPORT ---
EXAM DESCRIPTION: CT Head Without Intravenous Contrast CLINICAL HISTORY: STROKE ALERT TECHNIQUE: Axial computed tomography images of the head/brain without intravenous contrast. Sagitt al and coronal reformatted images were created and reviewed. This CT exam was performed using one o r more of the following dose reduction techniques: automated exposure control, adjustment of the mA and/or kV according to patient size, and/or use of iterative reconstruction technique. COMPARISON: CT Head dated 02/17/2022 FINDINGS: Brain: Mild cerebral atrophy and minimal bilateral periventricular and subcortical white matter low-attenuation which is nonspecific and can be seen in the setting of chronic microvascular angiopathy without significant interval change. No hemorrhage. Ventricles: Unremarkable. No ventriculomegaly. Bones/joints: Unremarkable. No acute fracture. Soft tissues: Unremarkable. Vasculature: There is atherosclerotic disease of the internal carotid and vertebral arteries bilate rally. Sinuses: Minimal bilateral maxillary sinus mucosal thickening. Mastoid air cells: Unremarkable as visualized. No mastoid effusion. IMPRESSION: 1. No acute hemorrhage, focal mass or large territory infarction. 2. Other findings as above. CODE STROKE PROTOCOL CONFERENCE CALL: The findings were verbally discussed via telephone conference w CLINT Rubio, on 12/05/2022 1:31 AM CDT. The results were acknowledged and understood. Electronically signed by: Kenzie Sutton MD 12/05/2022 1:32 AM CDT Due to temporary technical issues with the PACS/Fluency reporting system, reports are being signed by the in house radiologist without review as a courtesy to ensure prompt reporting. The interpreting r adiologist is fully responsible for the content of the report.
--- NOTE | 2022-12-05 12:42 | RAD REPORT ---
EXAM DESCRIPTION: XR Chest, 2 views CLINICAL HISTORY: The patient is 77 years old and is Male; stroke [facility] MAIN TECHNIQUE: Frontal views of the chest. COMPARISON: 10/27/2022 chest radiograph FINDINGS: LUNGS: Bilateral perihilar and central interstitial markings suggesting pulmonary conges tion with or without mild central interstitial edema. No additional focal consolidation. PLEURAL SPACE: No pleural effusion. No pneumothorax. HEART: See below. MEDIASTINUM: Stable prominence of the cardiomediastinal silhouette, likely exaggerated secondary to portable technique, lordotic positioning, and patient body habitus. BONES/JOINTS: Unremarkable. IMPRESSION: Bilateral perihilar and central interstitial markings suggesting pulmonary congestion wi th or without mild central interstitial edema. Otherwise, no acute cardiopulmonary abnormality. Electronically signed by: Deric Nash MD 12/05/2022 2:02 AM CDT Due to temporary technical issues with the PACS/Fluency reporting system, reports are being signed by the in house radiologist without review as a courtesy to ensure prompt reporting. The interpreting r adiologist is fully responsible for the content of the report.
--- NOTE | 2022-12-05 12:49 | RAD REPORT ---
EXAM DESCRIPTION: ADDENDUM #1 Addendum: Dr. Nash discussed these findings with Dr. Rocha via telephone at approximately 04:25 hours EST o n 12/05/2022. Electronically signed by: Deric Nash MD 12/05/2022 3:47 AM CDT End of Addendum EXAM DESCRIPTION: US Duplex Bilateral Extracranial Arteries CLINICAL HISTORY: The patient is 77 years old and is Male; [facility] MAIN TECHNIQUE: Real-time duplex ultrasound scan of the extracranial arteries integrating B-mode two-dime nsional vascular structure, Doppler spectral analysis and color flow Doppler imaging. COMPARISON: No relevant prior studies available. FINDINGS: RIGHT COMMON CAROTID ARTERY: Unremarkable. No occlusion or significant stenosis on col or flow and spectral Doppler imaging. Peak systolic velocity in the right common carotid artery (CCA) is 100 cm/s. RIGHT INTERNAL CAROTID ARTERY: Peak systolic velocity in the right internal carotid artery (ICA) is 194 cm/s with visualized narrowing in the mid right ICA secondary to calcified plaque. No occlusion or significant stenosis on color flow and spectral Doppler imaging. RIGHT EXTERNAL CAROTID ARTERY: Unremarkable. No occlusion or significant stenosis on color flow a nd spectral Doppler imaging. Peak systolic velocity in the right external carotid artery (ECA) is 82 cm/s. RIGHT VERTEBRAL ARTERY: Antegrade flow. Peak systolic velocity in the right vertebral artery is 63 cm/s. RIGHT ICA/CCA RATIO: Elevated, measuring 1.94. LEFT COMMON CAROTID ARTERY: Unremarkable. No occlusion or significant stenosis on color flow and spectral Doppler imaging. Peak systolic velocity in the left common carotid artery (CCA) is 101 cm/s. LEFT INTERNAL CAROTID ARTERY: Peak systolic velocity in the left internal carotid artery (ICA) is 2 03 cm/s, with multifocal narrowing secondary to calcified plaque. No occlusion or significant stenosis on color flow and spectral Doppler imaging. LEFT EXTERNAL CAROTID ARTERY: Unremarkable. No occlusion or significant stenosis on color flow an d spectral Doppler imaging. Peak systolic velocity in the left external carotid artery (ECA) is 88 cm/s. LEFT VERTEBRAL ARTERY: Left vertebral artery is nonvisualized. LEFT ICA/CCA RATIO: Elevated, measuring 2.0. CAROTID STENOSIS REFERENCE USING SRU CRITERIA: Mild - <50% stenosis. ICA PSV is less than 125 cm/second and plaque or intimal thickening is visible. Moderate - 50-69% stenosis. ICA PSV is 125 to 230 cm/second and plaque is visible. Severe - 70-94% stenosis. ICA PSV is more than 230 cm/second and visible plaque with lumen narrowing is seen. Near occlusion - 95-99% stenosis. ICA PSV is variable and significant plaque with luminal narrowing i s seen. Occluded - 100% stenosis. No flow identified. IMPRESSION: 1. 50-69% stenosis in the mid right internal carotid artery due to atherosclerotic carmen que. 2. 50-69% stenosis in the left internal carotid artery due to atherosclerotic plaque. 3. Left vertebral artery is nonvisualized. Electronically signed by: Deric Nash MD 12/05/2022 3:17 AM CDT Due to temporary technical issues with the PACS/Fluency reporting system, reports are being signed by the in house radiologist without review as a courtesy to ensure prompt reporting. The interpreting r adiologist is fully responsible for the content of the report.
--- NOTE | 2022-12-05 12:53 | RAD REPORT ---
EXAM DESCRIPTION: CT Chest, Abdomen and Pelvis Without Intravenous Contrast CLINICAL HISTORY: The patient is 77 years old and is Male; SOB;[facility] MAIN TECHNIQUE: Axial computed tomography images of the chest, abdomen and pelvis without intravenous con trast. Sagittal and coronal reformatted images were created and reviewed. This CT exam was perfor med using one or more of the following dose reduction techniques: automated exposure control, adjus tment of the mA and/or kV according to patient size, and/or use of iterative reconstruction technique . COMPARISON: 02/17/2022 CT chest without contrast FINDINGS: CHEST: LUNGS: Unremarkable. No mass. No consolidation. PLEURAL SPACE: Unremarkable. No significant effusion. No pneumothorax. HEART: Moderate mitral annular calcification versus left circumflex calcifications. No significant pericardial effusion. ABDOMEN: LIVER: Unremarkable. GALLBLADDER AND BILE DUCTS: Unremarkable. No calcified stones. No ductal dilation. PANCREAS: Unremarkable. No ductal dilation. SPLEEN: Unremarkable. No splenomegaly. ADRENALS: Indeterminate 2.1 x 1.5 cm left adrenal nodule (mean Hounsfield units 25). KIDNEYS AND URETERS: Unremarkable. No obstructing stones. No hydronephrosis. STOMACH AND BOWEL: Unremarkable. No obstruction. No mucosal thickening. PELVIS: APPENDIX: No findings to suggest acute appendicitis. BLADDER: Unremarkable. No stones. REPRODUCTIVE: Unremarkable as visualized. CHEST, ABDOMEN and PELVIS: INTRAPERITONEAL SPACE: Unremarkable. No significant fluid collection. No free air. BONES/JOINTS: Multilevel spondylosis with focal degenerative disc disease greatest at T12-L1, L2-L3 , and L5-S1, with minimal grade 1 retrolisthesis of L2 on L3. Degenerative changes of the bilateral hips. No acute fracture. No dislocation. SOFT TISSUES: Transversely oriented subcutaneous edema demonstrated throughout the supraumbilical a bdominal wall, favoring contusion versus possible cellulitis. Small bilateral fat-containing inguinal hernias, right larger than left. VASCULATURE: Unremarkable. No aortic aneurysm. LYMPH NODES: Unremarkable. No enlarged lymph nodes. TUBES, LINES AND DEVICES: Transcatheter aortic valve replacement (TAVR). IMPRESSION: 1. Transversely oriented subcutaneous edema demonstrated throughout the supraumbilical abdominal wall, favoring contusion versus possible cellulitis. Clinical correlation recommended. 2. Otherwise, allowing for lack of intravenous contrast, no acute abnormality within the chest, abd omen, or pelvis. 3. Indeterminate 2.1 x 1.5 cm left adrenal nodule (mean Hounsfield units 25), unchanged from [facility] er 2021 exam. Consider a low dose, non-contrast adrenal CT or chemical-shift adrenal MRI follow-up study. Electronically signed by: Deric Nash MD 12/05/2022 4:05 AM CDT Due to temporary technical issues with the PACS/Fluency reporting system, reports are being signed by the in house radiologist without review as a courtesy to ensure prompt reporting. The interpreting r adiologist is fully responsible for the content of the report.
--- NOTE | 2022-12-05 12:57 | RAD REPORT ---
EXAM DESCRIPTION: US Bilateral Lower Extremity Venous Duplex Doppler CLINICAL HISTORY: Swelling COMPARISON: None. TECHNIQUE: Grayscale, color Doppler, duplex Doppler, spectral Doppler images and analysis with compr ession and augmentation of right and left lower extremity veins. FINDINGS: Right and Left common femoral, greater saphenous, femoral, deep (profunda) femoral, poplit eal veins unremarkable without evidence of clot. IMPRESSION: No sonographic evidence of right or left lower extremity DVT. Electronically signed by: Glenroy Barrientos MD 12/05/2022 3:03 AM CDT Due to temporary technical issues with the PACS/Fluency reporting system, reports are being signed by the in house radiologist without review as a courtesy to ensure prompt reporting. The interpreting r adiologist is fully responsible for the content of the report.
== END 2022-12-05 07:17 | disposition short-term general hospital (02) ==
LOC: ER 00:52
DX: A41.9 Sepsis, unspecified organism (principal); I95.9 Hypotension, unspecified; L03.115 Cellulitis of right lower limb; L03.125 Acute lymphangitis of right lower limb; E87.6 Hypokalemia; D72.829 Elevated white blood cell count, unspecified; E10.65 Type 1 diabetes mellitus with hyperglycemia; R53.1 Weakness; I12.9 Hypertensive chronic kidney disease with stage 1 through stage 4 chronic kidney disease, or unspecified chronic kidney disease; N18.9 Chronic kidney disease, unspecified; E87.1 Hypo-osmolality and hyponatremia; R33.9 Retention of urine, unspecified; I65.23 Occlusion and stenosis of bilateral carotid arteries; R56.9 Unspecified convulsions; E66.9 Obesity, unspecified; Z95.2 Presence of prosthetic heart valve; Z79.01 Long term (current) use of anticoagulants; Z20.822 Contact with and (suspected) exposure to COVID-19; Z96.653 Presence of artificial knee joint, bilateral
CPT/HCPCS: 93005 ×2; 87040 ×2; 85025; 81001; 80048; 36415; 83735; 85610; 82947; 80076; 83605 ×2; 85730; 84484; 83880; 87635; 80307; 87804 ×2; 71250; 74176; 70450; 71045; 93880; 93970; 82805; 51702; 99285; 36600; J1953; J2185; J1720; J7050; J7030

== ENCOUNTER → 2023-03-19 | Emergency (ER) | payer OTHER ==
[~2023-03-19] MED LIST changes: -ATROPINE SULF 1 MG/10 ML SYR IV ONE; -FENTANYL CITR 100 MCG/2 ML ONE; -HEPA 1000U/500MLS 0 UNIT/0 ML BAG IV ONE; -HEPA 1000U/500MLS 2,000 UNIT/1,000 ML BAG IV ONE; -LIDOCAINE 1% 20 ML MDV ONE; -MIDAZOLAM HCL 2 MG/2 ML INJ ONE; -NA CHLORIDE 0.9% 500 ML ONE; +TDAP (DIPHTH,PERTUSS(ACELL),TET VAC) 0.5 ML VIAL IMVAC ONE
--- NOTE | 2023-03-19 02:42 | ER ---
Nurse's Notes [facility] Name: Dwight Flaherty Age: 78 yrs Sex: Male : 1945 Arrival Date: 03/19/2023 Time: 02:05 Bed 7 Private MD: Diagnosis: Skin tear Presentation: 03/19 02:28 Chief complaint: Patient states: fell on kitchen rug and as I tried to catch myself, my tm6 right arm slid down the side of the kitchen counter and peeled off some of my skin. I'm on blood thinners and we have had to change the bandage four times. Coronavirus screen: Vaccine status: Patient reports receiving the 2nd dose of the covid vaccine. Ebola Screen: Patient negative for fever greater than or equal to 101.5 degrees Fahrenheit, and additional compatible Ebola Virus Disease symptoms Patient denies exposure to infectious person. Patient denies travel to an Ebola-affected area in the 21 days before illness onset. No symptoms or risks identified at this time. Initial Sepsis Screen: Does the patient meet any 2 criteria? No. Patient's initial sepsis screen is negative. Does the patient have a suspected source of infection? No. Patient's initial sepsis screen is negative. Risk Assessment: Do you want to hurt yourself or someone else? Patient reports no desire to harm self or others. Onset of symptoms was March 19, 2023. 02:28 Method Of Arrival: Ambulatory tm6 02:28 Acuity: GENO 3 tm6 Triage Assessment: 02:31 General: Appears in no apparent distress. Behavior is calm, cooperative. Pain: Denies tm6 pain. EENT: No signs and/or symptoms were reported regarding the EENT system. Neuro: Level of Consciousness is awake, alert, obeys commands, Oriented to person, place, time, situation. Cardiovascular: Capillary refill < 3 seconds Patient's skin is warm and dry. Respiratory: Airway is patent Respiratory effort is even, unlabored, Respiratory pattern is regular, symmetrical. GI: Abdomen is round non-distended. : No signs and/or symptoms were reported regarding the genitourinary system. Derm: Skin has skin tears on right forearm. Musculoskeletal: No signs and/or symptoms reported regarding the musculoskeletal system. 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 - Social history:: Smoking status: Patient denies any tobacco usage or history of. Patient/guardian denies using alcohol. Screenin:33 [facility] ED Fall Risk Assessment (Adult) History of falling in the last 3 months, tm6 including since admission Yes- single mechanical fall (1 pt) Score/Fall Risk Level 3 or more points = High Risk. Abuse screen: Denies threats or abuse. Denies injuries from another. Nutritional screening: No deficits noted. Tuberculosis screening: No symptoms or risk factors identified. Assessment: 02:33 Reassessment: see triage assessment. tm6 02:53 Reassessment: Patient appears in no apparent distress at this time. No changes from tm6 previously documented assessment. Vital Signs: 02:28 BP 143 / 95; Pulse 69; Resp 17; Temp 98.1(TE); Pulse Ox 99% on R/A; Weight 147.42 kg; tm6 Height 6 ft. 8 in. ; Pain 0/10; 02:53 BP 120 / 96; Pulse 92; Pulse Ox 97% on R/A; Pain 0/10; tm6 02:28 Body Mass Index 35.70 (147.42 kg, 203.2 cm) tm6 02:28 Pain Scale: Adult tm6 02:53 Pain Scale: Adult tm6 ED Course: 02:08 Patient arrived in ED. [email or web address] 02:10 Viet Araujo DO is Attending Physician. ms3 02:30 Wound care: to skin tear located on right arm was cleaned with with saline, dressed tm6 with non adherent pad and tegaderm, Patient tolerated well. 02:31 Triage completed. tm6 02:31 Arm band placed on right wrist. tm6 02:33 Patient has correct armband on for positive identification. Bed in low position. Call tm6 light in reach. Side rails up X2. Provided Education on: wound care. Client placed on continuous cardiac and pulse oximetry monitoring. NIBP monitoring applied. Door closed. Noise minimized. 02:33 No provider procedures requiring assistance completed. Patient did not have IV access tm6 during this emergency room visit. Administered Medications: 02:53 Drug: Boostrix Tdap IM 0.5 ml IM once; as a single dose Route: IM; Site: right deltoid; tm6 Medication: 02:33 VIS not applicable for this client. tm6 Outcome: 02:42 Discharge ordered by . ms3 02:54 Discharged to home ambulatory, with family, tm6 02:54 Condition: stable 02:54 Discharge instructions given to patient, family, Instructed on discharge instructions, follow up and referral plans. wound care, Demonstrated understanding of instructions, follow-up care, wound care, 02:56 Patient left the ED. tm6 Signatures: Viet Araujo DO DO ms3 Isabelle Yoon6 Naya Arndt, RN RN tm6
--- NOTE | 2023-03-19 02:42 | EDPHYS ---
Physician Documentation [facility] Name: Dwight Flaherty Age: 78 yrs Sex: Male : 1945 Arrival Date: 03/19/2023 Time: 02:05 Bed 7 Private MD: ED Physician Viet Araujo HPI: 03/19 02:42 This 78 yrs old Male presents to ER via Ambulatory with complaints of Fall Injury, ms3 Laceration To Arm, Pt on blood thinners. 02:42 78-year-old male with past medical history of asbestosis, diabetes, GERD, hypertension, ms3 irregular heartbeat presents to the emergency department status post slipping in his kitchen and cutting his arm. Patient denies falling or striking his head. Patient denies any alleviating or inciting factors. Patient states he has placed multiple bandages over the wound that become saturated with blood. 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 - Social history:: Smoking status: Patient denies any tobacco usage or history of. Patient/guardian denies using alcohol. ROS: 02:42 Constitutional: Negative for fever, and chills. Cardiovascular: Negative for chest ms3 pain, and palpitations. Respiratory: Negative for shortness of breath, cough, wheezing, and pleuritic chest pain, Abdomen/GI: Negative for abdominal pain, nausea, vomiting, diarrhea, and constipation, Back: Negative for injury and pain, 02:42 Skin: Positive for Skin tear on right arm, 02:42 All other systems are negative, Exam: 02:42 Constitutional: This is a well developed, well nourished patient who is awake, alert, ms3 and in no acute distress. Head/Face: Normocephalic, atraumatic. Neck: Trachea midline, no cervical lymphadenopathy. Supple, full range of motion without nuchal rigidity, or vertebral point tenderness. No Meningismus. Chest/axilla: Normal chest wall appearance and motion. Nontender with no deformity. Cardiovascular: Regular rate and rhythm with a normal S1 and S2. No gallops, murmurs, or rubs. Normal PMI, no JVD. No pulse deficits. Respiratory: Lungs have equal breath sounds bilaterally, clear to auscultation and percussion. No rales, rhonchi or wheezes noted. No increased work of breathing, no retractions or nasal flaring. Abdomen/GI: Soft, non-tender, with normal bowel sounds. No distension or tympany. No guarding or rebound. No evidence of tenderness throughout. 02:42 Skin: Skin tear present on right forearm with minimal oozing bleeding. Vital Signs: 02:28 BP 143 / 95; Pulse 69; Resp 17; Temp 98.1(TE); Pulse Ox 99% on R/A; Weight 147.42 kg; tm6 Height 6 ft. 8 in. ; Pain 0/10; 02:53 BP 120 / 96; Pulse 92; Pulse Ox 97% on R/A; Pain 0/10; tm6 02:28 Body Mass Index 35.70 (147.42 kg, 203.2 cm) tm6 02:28 Pain Scale: Adult tm6 02:53 Pain Scale: Adult tm6 MDM: 02:28 Patient medically screened. ms3 02:42 Differential diagnosis: abrasion, contusion. Data reviewed: vital signs, nurses notes, ms3 and as a result, I will discharge patient. I considered the following discharge prescriptions or medication management in the emergency department Medications were administered in the Emergency Department. See MAR. Historians other than the Patient: Daughter/Son: Patient's son. Counseling: I had a detailed discussion with the patient and/or guardian regarding the historical points, exam findings, and any diagnostic results supporting the discharge/admit diagnosis, the need for outpatient follow up, to return to the emergency department if symptoms worsen or persist or if there are any questions or concerns that arise at home. ED course: Dressing placed over skin tear on right forearm. Patient declined CT head or neck as he did not fall or strike his head or neck. Patient to follow-up with primary care physician in 2 to 3 days. Patient understands and agrees with plan. All questions were answered. Return precautions discussed include worsening symptoms, or any other concerns. Administered Medications: 02:53 Drug: Boostrix Tdap IM 0.5 ml IM once; as a single dose Route: IM; Site: right deltoid; tm6 Disposition Summary: 03/19/23 02:42 Discharge Ordered Notes: Location: Home ms3 Condition: Stable ms3 Diagnosis - Skin tear ms3 Followup: ms3 - With: Private Physician - When: 2 - 3 days - Reason: Recheck today's complaints Discharge Instructions: - Discharge Summary Sheet ms3 - Skin Tear, [id number] ms3 Forms: - Medication Reconciliation Form ms3 - Thank You Letter ms3 - Antibiotic Education ms3 - Prescription Opioid Use ms3 - Patient Portal Instructions ms3 - Leadership Thank You Letter ms3 Signatures: Viet Araujo DO DO ms3 Naya Arndt RN RN tm6
[2023-03-19 04:36] VITALS: BP 120/96; TEMP 98.1; O2SAT 97
== END ==
LOC: ER 02:05
DX: S51.811A Laceration without foreign body of right forearm, initial encounter (principal)
CPT/HCPCS: 96372; 99284

== ENCOUNTER 2023-05-06 22:30 | Inpatient (IN) | payer OTHER ==
[2023-05-06 23:08] LABS: Absolute Basophils 0.1 K/uL (0-0.5); Absolute Eosinophils 0.2 K/uL (0-0.5); Absolute Lymphocytes (CBC) 1.5 K/uL (0.7-4.9); Absolute Monocytes 0.4 K/uL (0.1-1.3); Absolute Neutrophil 12.7 K/uL (1.8-8.0); Basophils % 0.8 % (0-1.3); Eosinophils % 1.6 % (0-4.4); Hematocrit 25.7 % (39.6-49.0); Hemoglobin 8.4 g/dL (13.6-17.9); MCHC 32.7 g/dL (32.0-36.0); MCV 82.7 fL (80-100); MPV 10.4 fL (7.6-11.3); Monocytes % 2.5 % (3.3-12.3); Neutrophils % 85.1 % (41.7-73.7); Nucleated Red Blood Cells % 0.1 % (0-0); Platelets 186 thou/uL (152-406); RBC Red Blood Cell Count 3.11 M/uL (4.33-5.43); Red Cell Distribution Width 18.1 % (12.1-15.2)
[2023-05-06 23:19] LABS: PT Prothrombin Time 14.5 SECONDS (9.5-12.5); Protime INR 1.33
[2023-05-06 23:33] LABS: Albumin 2.6 g/dL (3.4-5.0); Albumin/Globulin Ratio 0.5 (1.1-1.8); Anion Gap 10.2 mEq/L (5.0-15.0); Bilirubin Direct 0.2 mg/dL (0-0.2); Bilirubin Indirect, Calculated 0.4 mg/dL (0.2-0.8); Bilirubin Total 0.6 mg/dL (0.2-1.0); Globulin 5.3 g/dL (2.3-3.5); Magnesium 2.3 mg/dL (1.6-2.4); Potassium 4.2 mEq/L (3.5-5.1); Protein, Total 7.9 g/dL (6.4-8.2)
[2023-05-06 23:38] LABS: Troponin High Sensitivity 298.2 pg/mL (<58.9)
[2023-05-07] MEDS ORDERED: NA CHLORIDE 0.9% 500 ML ONE (00:18)
--- NOTE | 2023-05-07 01:09 | ER ---
Nurse's Notes [facility] [place] Name: Dwight Flaherty Age: 78 yrs Sex: Male : 1945 Arrival Date: 05/06/2023 Time: 22:30 Bed 6 Private MD: Diagnosis: Subsequent non-ST elevation (NSTEMI) myocardial infarction;Dizziness and giddiness Presentation: 05/05 22:45 Chief complaint: Patient states: lightheartedness, dizziness, unsteady gait for several as6 days. Coronavirus screen: At this time, the client does not indicate any symptoms associated with coronavirus-19. Ebola Screen: No symptoms or risks identified at this time. Initial Sepsis Screen: Does the patient meet any 2 criteria? No. Patient's initial sepsis screen is negative. Does the patient have a suspected source of infection? No. Patient's initial sepsis screen is negative. Risk Assessment: Do you want to hurt yourself or someone else? Patient reports no desire to harm self or others. Onset of symptoms was May 04, 2023. 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 - Social history:: Smoking status: Patient denies any tobacco usage or history of. Screenin:45 [facility] ED Fall Risk Assessment (Adult) History of falling in the last 3 months, km8 including since admission Yes- single mechanical fall (1 pt) Confusion or Disorientation No (0 pts) Intoxicated or Sedated No (0 pts) Impaired Gait Yes (1 pt) Mobility Assist Device Used Yes (1 pt) Altered Elimination No (0 pt) Score/Fall Risk Level 3 or more points = High Risk Oriented to surroundings, Maintained a safe environment, Educated pt \T\ family on fall prevention, incl call for assistance when getting out of bed, Assessed \T\ reinforced patient's understanding of fall precautions, Provided non-skid footwear, Hourly rounding (assess needs \T\ fall precautionary measures) done, Used ambulatory aids as needed (educated on \T\ assisted with), Used gait belt as appropriate Implemented a Fall Risk Plan of Care, Remained w/in arm's length of patient and in sight while toileting, Offered frequent toileting (1:1 observation), Remained with patient while ambulating. Abuse screen: Denies threats or abuse. Denies injuries from another. Nutritional screening: No deficits noted. Tuberculosis screening: No symptoms or risk factors identified. Assessment: 22:45 General: Appears in no apparent distress. comfortable, Behavior is cooperative, km8 appropriate for age, restless. Pain: Denies pain. Neuro: Level of Consciousness is awake, alert, obeys commands, Oriented to person, place, time, situation, Reports dizziness, weakness. Cardiovascular: Denies chest pain, shortness of breath, Patient's skin is warm and dry. Edema is 1+ to BLE. Respiratory: Airway is patent Respiratory effort is even, unlabored, Respiratory pattern is regular, symmetrical. GI: No signs and/or symptoms were reported involving the gastrointestinal system. : No signs and/or symptoms were reported regarding the genitourinary system. EENT: No signs and/or symptoms were reported regarding the EENT system. Derm: Skin is intact, Skin is dry, Skin is pink, warm \T\ dry. normal, Skin temperature is warm. Musculoskeletal: Range of motion: intact in all extremities. 23:35 Reassessment: Patient appears in no apparent distress at this time. No changes from km8 previously documented assessment. Patient and/or family updated on plan of care and expected duration. Pain level reassessed. Patient is alert, oriented x 3, equal unlabored respirations, skin warm/dry/pink. 05/06 01:05 Reassessment: Patient and/or family updated on plan of care and expected duration. Pain tm6 level reassessed. Patient is alert, oriented x 3, equal unlabored respirations, skin warm/dry/pink. Vital Signs: 05/05 22:44 BP 115 / 51; Pulse 77; Resp 20 S; Temp 98.1(O); Pulse Ox 95% on R/A; Weight 146.51 kg as6 (R); Height 6 ft. 8 in. (R); Pain 0/10; 23:30 BP 125 / 48; Pulse 70; Resp 22; Pulse Ox 99% on R/A; km8 03 00:00 BP 130 / 60; Pulse 67; Resp 18; Pulse Ox 98% on R/A; km8 01:00 BP 129 / 84; Pulse 66; Resp 20; Pulse Ox 97% on R/A; km8 01:05 Pulse 71; Resp 15; Pulse Ox 97% ; Pain 0/10; tm6 01:23 Weight 147.74 kg (M); km8 05/05 22:44 Body Mass Index 35.48 (147.74 kg, 203.2 cm) as6 05/05 22:44 Pain Scale: Adult as6 01:05 Pain Scale: Adult tm6 Audrey Coma Score: 05/05 22:45 Eye Response: spontaneous(4). Motor Response: obeys commands(6). Verbal Response: km8 oriented(5). Total: 15. ED Course: 22:31 Patient arrived in ED. ra3 22:32 Viet Araujo DO is Attending Physician. ms3 22:42 Maria Eugenia Harrison, PUMA is Primary Nurse. km8 22:42 Inserted saline lock: 20 gauge in right forearm, using aseptic technique. Blood km8 collected. 22:42 Patient has correct armband on for positive identification. Placed in gown. Bed in low km8 position. Call light in reach. Side rails up X2. personnel monitor on. Pulse ox on. NIBP on. 22:44 Arm band placed on. as6 22:45 Patient maintains SpO2 saturation greater than 95% on room air. km8 22:46 Triage completed. as6 22:56 EKG done, by ED staff, reviewed by Viet Araujo DO. tm6 23:15 XRAY Chest (1 view) In Process Unspecified. EDMS 23:20 Radiology exam delayed due to lab results not completed at this time. (BUN/Creatinine). eh4 23:35 Head of bed elevated. Repositioned patient. km8 03 00:00 No provider procedures requiring assistance completed. km8 00:15 CT Head Brain wo Cont In Process Unspecified. EDMS 00:15 CT Head Angio In Process Unspecified. EDMS 00:[address] In Process Unspecified. EDMS 01:09 Omitogun, Gomez, MD is Hospitalizing Provider. ms3 03:32 Patient admitted, IV remains in place. tm6 03:33 Provided Education on: need for admit. tm6 Administered Medications: 00:22 Drug: NS 0.9% IV 500 ml IV at bolus once Route: IV; Rate: bolus; Site: right [facility] antecubital; :43 Drug: Heparin ([place]-Bolus No thrombolytic) - HEParin IVP 60 units/kg IVP once; Max 5000 tm6 units {Co-Signature: destinee (Maria Eugenia Harrison RN).} Route: IVP; Site: right forearm; 01:43 Drug: Heparin ([place] Drip) 12 units/kg/[place] - ([place] [address] units, D5W IV 500 ml) IV at tm6 calculated rate Per protocol; Max initial rate 1000 units/hr {Co-Signature: destinee (Maria Eugenia Harrison RN).} Route: IV; Rate: calculated rate; Site: right forearm; 01:49 Drug: Aspirin PO Chewable Tablet 324 mg PO once; 81 mg tablets x 4 Route: PO; tm6 Medication: 00:01 VIS not applicable for this client. km8 Outcome: 01:09 Decision to Hospitalize by Provider. ms3 03:32 Admitted to Med/surg accompanied by tech, via wheelchair, room 416, with chart, Report tm6 called to Letty BARTHOLOMEW 03:32 Condition: stable 03:32 Instructed on the need for admit, Demonstrated understanding of instructions, 03:33 Patient left the ED. tm6 Signatures: Dispatcher [employer] EDIL Viet Araujo DO DO ms3 Alexander Dominguez, RN RN as6 Alo Pierson 4 Maria Eugenia Harrison, PUMA RN km8 Naya Arndt RN RN tm6 Renetta Siu 3 Maria Eugenia Harrison RN km8
--- NOTE | 2023-05-07 01:10 | EDPHYS ---
Physician Documentation [facility] Name: Dwight Flaherty Age: 78 yrs Sex: Male : 1945 Arrival Date: 05/06/2023 Time: 22:30 Bed 6 Private MD: ED Physician Viet Araujo HPI: 05/05 22:54 This 78 yrs old Male presents to ER via Wheelchair with complaints of lightheaded, ms3 Cough, Headache. 22:54 78-year-old male with past medical history of asbestosis scarring, chronic cough, ms3 carotid stenosis, diabetes, pneumonia, GERD presents to the emergency department for dizziness and difficulty walking for 2 days. Patient states he had right stent placed in his internal carotid on November 2022 and a left stent placed in February 2023. Patient denies pain. Patient denies any nausea, vomiting, headache. Patient endorses cough.. 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 - Social history:: Smoking status: Patient denies any tobacco usage or history of. ROS: 22:54 Constitutional: Negative for fever, and chills. Neck: Negative for injury, pain, and ms3 swelling, Cardiovascular: Negative for chest pain, and palpitations. Respiratory: Negative for shortness of breath, cough, wheezing, and pleuritic chest pain, Abdomen/GI: Negative for abdominal pain, nausea, vomiting, diarrhea, and constipation, MS/Extremity: Negative for injury and deformity, 22:54 Neuro: Positive for dizziness, Exam: 22:54 Constitutional: This is a well developed, well nourished patient who is awake, alert, ms3 and in no acute distress. Head/Face: Normocephalic, atraumatic. Neck: Trachea midline, no cervical lymphadenopathy. Supple, full range of motion without nuchal rigidity, or vertebral point tenderness. No Meningismus. Chest/axilla: Normal chest wall appearance and motion. Nontender with no deformity. Cardiovascular: Regular rate and rhythm with a normal S1 and S2. No gallops, murmurs, or rubs. Normal PMI, no JVD. No pulse deficits. Respiratory: Lungs have equal breath sounds bilaterally, clear to auscultation and percussion. No rales, rhonchi or wheezes noted. No increased work of breathing, no retractions or nasal flaring. Abdomen/GI: Soft, non-tender, with normal bowel sounds. No distension or tympany. No guarding or rebound. No evidence of tenderness throughout. Skin: Warm, dry with normal turgor. Normal color with no rashes, no lesions, and no evidence of cellulitis. 22:54 Neuro: Orientation: is normal, to person, place, time \T\ situation. Mentation: is normal, Memory: is normal, Cranial nerves: CN I not tested, CN II- XII are normal as tested, Cerebellar function: normal finger to nose testing, Gait: is unsteady, 05/06 00:15 ECG was reviewed by the Attending Physician. ms3 Vital Signs: 05/05 22:44 BP 115 / 51; Pulse 77; Resp 20 S; Temp 98.1(O); Pulse Ox 95% on R/A; Weight 146.51 kg as6 (R); Height 6 ft. 8 in. (R); Pain 0/10; 23:30 BP 125 / 48; Pulse 70; Resp 22; Pulse Ox 99% on R/A; km8 05/06 00:00 BP 130 / 60; Pulse 67; Resp 18; Pulse Ox 98% on R/A; km8 01:00 BP 129 / 84; Pulse 66; Resp 20; Pulse Ox 97% on R/A; km8 01:05 Pulse 71; Resp 15; Pulse Ox 97% ; Pain 0/10; tm6 01:23 Weight 147.74 kg (M); km8 05/05 22:44 Body Mass Index 35.48 (147.74 kg, 203.2 cm) as6 03 22:44 Pain Scale: Adult as6 01:05 Pain Scale: Adult tm6 Audrey Coma Score: 05/05 22:45 Eye Response: spontaneous(4). Motor Response: obeys commands(6). Verbal Response: km8 oriented(5). Total: 15. MDM: 22:46 Patient medically screened. ms3 22:54 Differential Diagnosis: Other CVA vs ICH vs Arrhythmia. ms3 05/06 01:09 Data reviewed: vital signs, nurses notes, lab test result(s), EKG, radiologic studies, ms3 and as a result, I will admit patient. Consideration of Admission/Observation Patient was admitted/placed on observation. Management of patient was discussed with the following: Hospitalist: Dr. solano. I considered the following discharge prescriptions or medication management in the emergency department Medications were administered in the Emergency Department. See MAR. Independent interpretation of the following test(s) in the Emergency Department EKG: See my EKG interpretation above X-Ray: My interpretation is Chest x-ray image reviewed by me does not reveal pneumonia. Care significantly affected by the following chronic conditions: Diabetes. Counseling: I had a detailed discussion with the patient and/or guardian regarding the historical points, exam findings, and any diagnostic results supporting the discharge/admit diagnosis, lab results, radiology results, the need for further work-up and treatment in the hospital. ED course: CustomDiscussed labs, EKG, imaging studies with patient and his family. SCD for admission with patient and he understands and agrees with plan. All questions were answered. 05/05 22:48 Order name: Basic Metabolic Panel; Complete Time: 23:47 ms3 05/05 22:48 Order name: CBC with Diff; Complete Time: 23:47 ms3 05/05 22:48 Order name: LFT's; Complete Time: 23:47 ms3 05/05 22:48 Order name: Magnesium; Complete Time: 23:47 ms3 05/05 22:48 Order name: PT-INR; Complete Time: 23:47 ms3 05/05 22:48 Order name: Troponin HS; Complete Time: 23:47 ms3 05/06 01:44 Order name: CBC with Automated Diff EDMS 05/06 01:44 Order name: CBC with Automated Diff EDMS 05/06 01:44 Order name: CBC with Automated Diff EDMS 05/06 01:44 Order name: CBC with Automated Diff EDMS 05/06 01:44 Order name: Comprehensive Metabolic Panel EDMS 05/06 01:44 Order name: Comprehensive Metabolic Panel EDMS 05/06 01:44 Order name: Comprehensive Metabolic Panel EDMS 05/06 01:44 Order name: Comprehensive Metabolic Panel EDMS 05/06 01:44 Order name: Troponin High Sensitivity EDMS 05/06 01:44 Order name: Troponin High Sensitivity EDMS 05/06 01:44 Order name: Troponin High Sensitivity EDMS 05/06 01:44 Order name: Troponin High Sensitivity EDMS 05/05 22:48 Order name: XRAY Chest (1 view) ms3 05/05 22:48 Order name: CT Head Brain wo Cont ms3 05/05 22:48 Order name: CT Head Angio ms3 05/05 22:48 Order name: Neck Angio CT ms3 05/06 01:44 Order name: Echo with Doppler EDMS 05/05 22:48 Order name: EKG; Complete Time: 22:48 ms3 05/06 01:44 Order name: CONS Physician Consult EDMS 05/05 22:48 Order name: Cardiac monitoring; Complete Time: 22:56 ms3 05/05 22:48 Order name: EKG - Nurse/Tech; Complete Time: 22:56 ms3 05/05 22:48 Order name: IV Saline Lock; Complete Time: 22:49 ms3 05/05 22:48 Order name: Labs collected and sent; Complete Time: 22:56 ms3 05/05 22:48 Order name: O2 Per Protocol; Complete Time: 22:49 ms3 05/05 22:48 Order name: O2 Sat Monitoring; Complete Time: 22:49 ms3 EC:15 Rate is 73 beats/min. Left axis deviation noted. Clinical impression: sinsus rhythm ms3 with AV dissociation and accelerated junctional rhythm. Interpreted by me. Reviewed by me. Administered Medications: 00:22 Drug: NS 0.9% IV 500 ml IV at bolus once Route: IV; Rate: bolus; Site: right km8 antecubital; :43 Drug: Heparin ([place]-Bolus No thrombolytic) - HEParin IVP 60 units/kg IVP once; Max 5000 tm6 units {Co-Signature: Maria Eugenia Paredes RN).} Route: IVP; Site: right forearm; :43 Drug: Heparin ([place] Drip) 12 units/kg/hr - ([place] [address] units, D5W IV 500 ml) IV at tm6 calculated rate Per protocol; Max initial rate 1000 units/hr {Co-Signature: km8 (Maria Eugenia Harrison RN).} Route: IV; Rate: calculated rate; Site: right forearm; 01:49 Drug: Aspirin PO Chewable Tablet 324 mg PO once; 81 mg tablets x 4 Route: PO; tm6 Disposition Summary: 05/07/23 01:09 Hospitalization Ordered Notes: Hospitalization Status: Inpatient Admission ms3 Provider: Gomez Solano ms3 Location: Telemetry/MedSurg (Inpatient) ms3 Condition: Stable ms3 Problem: new ms3 Symptoms: are unchanged ms3 Bed/Room Type: Standard ms3 Room Assignment: 416(05/07/23 01:51) rv1 Diagnosis - Subsequent non-ST elevation (NSTEMI) myocardial infarction ms3 - Dizziness and giddiness ms3 Forms: - Medication Reconciliation Form ms3 - SBAR form ms3 - Leadership Thank You Letter ms3 Critical care time excluding procedures: 05:23 Critical care time: Bedside Care: 30 minutes, Consultation: 5 minutes, Family ms3 Intervention: 5 minutes. Total time: 40 minutes Signatures: Dispatcher [employer] EDMS Viet Araujo, DO ms3 Alexander Dominguez RN RN as6 Akila Moraes rv1 Maria Eugenia Harrison, RN RN km8 Naya Arndt RN RN 6 Maria Eugenia Harrison RN km8 Corrections: (The following items were deleted from the chart) 01:51 01:09 ms3 rv1
[2023-05-07] MEDS ORDERED: ASPIRIN 81 MG CHEWABLE TABLET ONE (01:14)
[2023-05-07] MEDS ORDERED: HEPARIN 5000 UNIT/ML 1 ML VIAL ONE (01:15)
[2023-05-07] MEDS ORDERED: HEPARIN/D5W 25,000 UNIT/500 ML BAG IV ONE (01:15)
[2023-05-07] MEDS ORDERED: ONDANSETRON 4 MG/2 ML VIAL IV PRN (01:35)
[2023-05-07] MEDS ORDERED: ACETAMINOPHEN 500 MG TAB PO PRN (01:35)
[2023-05-07] MEDS ORDERED: MORPHINE 4 MG/ML SYR IV PRN (01:35)
[2023-05-07] MEDS ORDERED: NITROGLYCERIN 0.4 MG/TAB SL PRN (01:35)
--- NOTE | 2023-05-07 01:43 | P.HP ---
Certification for Inpatient Patient admitted to: Observation With expected LOS: <2 Midnights Practitioner: I am a practitioner with admitting privileges, knowledge of patient current condition, hospital course, and medical plan of care. Services: Services provided to patient in accordance with Admission requirements found in Title 42 Section 412.3 of the Code of Federal Regulations Patient History Date of Service: 05/07/23 Reason for admission: NSTEMI, dizziness. History of Present Illness: 78-year-old male patient with medical history significant for cardiac disease status post aortic valve replacement, hypertension, hyperlipidemia, diabetes type 2, CKD stage III who follows with outpatient tree doctor was evaluated for episode of dizziness. Patient reported has been feeling slightly dizzy for couple of days but no overt episode of fever, chills, rigor, nausea, vomiting. He also describes a chronic cough for which she is on suppressive therapy with Augmentin for some cryptic bloodstream infection diagnosed in the last year. He did report that his cough is slightly productive of sputum and there is no blood or shira tinged component to it. In the ED he had lab work that revealed elevated troponin of over 200 so he was deemed to be having NSTEMI after review of his EKG and he was admitted for inpatient care. 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 He is on Eliquis for anticoagulation. Allergies No Known Allergies Allergy (Verified 10/20/22 10:08) Home Medications: Allopurinol 300 mg PO DAILY 04/18/19 Amlodipine Besylate 10 mg PO DAILY 04/18/19 Apremilast [Otezla] 30 mg PO BID 04/18/19 Gabapentin 600 mg PO BEDTIME 04/18/19 Hydralazine HCl [Apresoline] 100 mg PO Q8H 04/18/19 Insulin Detemir [Levemir Flextouch] 130 units SQ DAILY 04/18/19 Liraglutide [Victoza 2-Malvin] 1.8 units SQ DAILY 04/18/19 Omeprazole [Prilosec] 40 mg PO DAILY 04/18/19 Rosuvastatin [Crestor*] 10 mg PO DAILY 04/18/19 glipiZIDE [Glipizide ER] 5 mg PO BID 04/18/19 Gabapentin 300 mg PO DAILY 04/19/19 Baclofen 10 mg PO BEDTIME 01/11/22 Calcium` 600 mg PO DAILY 01/11/22 Magnesium Oxide [Magnesium] 250 mg PO BID 01/11/22 [place]-3/Dha/Epa/Fish Oil [Fish Oil 1,000 mg Softgel] 1 each PO BID 01/11/22 Vit D 2.25 mg PO SEECOM 01/11/22 Apixaban [Eliquis] 5 mg PO BID 04/08/22 Bumetanide [Bumex*] 1 mg PO BID 04/08/22 Carvedilol [Coreg] 25 mg PO BID 04/08/22 Multivit-Min/FA/Lycopen/Lutein [Centrum Silver Tablet] 1 each PO DAILY 04/08/22 Amoxicillin 500 mg PO BID 10/28/22 Losartan Potassium 25 mg PO DAILY 10/28/22 Silver Sulfadiazine Crm [Silvadene*] 1 nikia SL BID 10/28/22 metOLazone [Metolazone] 5 mg PO MO,FR #10 tab 11/02/22 - Past Medical/Surgical History Diabetic: Yes -: Psoriasis -: Chronic kidney disease, Stage 3, Nephrology-Dr. Holt -: HTN -: Osteoarthritis -: Lymphedema -: Insulin dependent type 2 diabetes -: Gout -: CHFdiastolic -: Obstructive sleep apnea -: Hyperlipidemia -: GERD -: History of gastric ulcer -: Bilateral Knee Replacements -: Cholecystectomy -: both hands surgery + right fingers -: punji stick removal -: TAVR Psychosocial/ Personal History: . He has 2 stepchildren, 1 child, and another adopted. He is retired. - Family History Father -: Heart disease Mother -: Cancer - Social History Alcohol use: No CD- Drugs: No Caffeine use: No Review of Systems General: Malaise Eyes: Unremarkable ENT: Unremarkable Respiratory: Unremarkable Cardiovascular: Light Headedness Gastrointestinal: Unremarkable Genitourinary: Unremarkable Musculoskeletal: Unremarkable Integumentary: Unremarkable Neurological: Weakness Lymphatics: Unremarkable Physical Examination - Physical Exam General: Alert, Oriented x3 HEENT: Atraumatic Neck: Supple Respiratory: Normal air movement Cardiovascular: Regular rate/rhythm, Normal S1 S2 Gastrointestinal: Soft and benign Musculoskeletal: No swelling Neurological: Normal speech, Normal strength at 5/5 x4 extr - Studies Laboratory Data (last 24 hrs) 05/06/23 05/06/23 05/06/23 22:57 22:57 22:57 WBC 14.90 H Hgb 8.4 L Hct 25.7 L Plt Count 186 PT 14.5 H INR 1.33 Sodium 137 Potassium 4.2 BUN 39 H Creatinine 2.36 H Glucose 126 H Magnesium 2.3 Total Bilirubin 0.6 AST 24 ALT 18 Alkaline Phosphatase 68 Assessment and Plan - Plan Dizziness/ACS workup: Patient has elevated troponin and abnormal EKG. He has also had cardiac surgery in the past. Will continue heparin drip for ACS management, put on telemetry and monitor trend of troponin. Will continue aspirin as additional therapy. Metal Alloy Scientist to evaluate for management recommendation. History of diabetes type 2: We will continue sliding scale insulin for glucose control and carb restricted diet. Hypertension: We will monitor vital signs per unit protocol and continue outpatient hypertensive medications. Anemia: Hemoglobin is low at 7.5. Will obtain iron panel, trend troponin hemoglobin and transfuse for hemoglobin of less than 7.0. Will replete iron stores as needed. History of aortic valve replacement: Continue anticoagulation. Prophylaxis: Heparin drip for ACS management CODE STATUS: Full code Disposition: We will treat his multiple medical issues and he will be discharged once cleared by cardiology service. - Advance Directives Does patient have a Living Will: No Does patient have a Durable POA for Healthcare: No
[2023-05-07 03:09] LABS: Absolute Basophils 0.1 K/uL (0-0.5); Absolute Eosinophils 0.3 K/uL (0-0.5); Absolute Lymphocytes (CBC) 1.3 K/uL (0.7-4.9); Absolute Monocytes 0.3 K/uL (0.1-1.3); Absolute Neutrophil 11.3 K/uL (1.8-8.0); Eosinophils % 2.2 % (0-4.4); Hematocrit 22.9 % (39.6-49.0); Hemoglobin 7.5 g/dL (13.6-17.9); Lymphocytes % 9.6 % (15.3-44.8); MCH 26.9 pg (27.0-35.0); MCHC 32.6 g/dL (32.0-36.0); MCV 82.7 fL (80-100); MPV 10.4 fL (7.6-11.3); Monocytes % 2.4 % (3.3-12.3); Neutrophils % 84.8 % (41.7-73.7); Nucleated Red Blood Cells % 0.1 % (0-0); Platelets 162 thou/uL (152-406); RBC Red Blood Cell Count 2.77 M/uL (4.33-5.43); Red Cell Distribution Width 17.9 % (12.1-15.2)
[2023-05-07 03:27] LABS: Albumin 2.4 g/dL (3.4-5.0); Albumin/Globulin Ratio 0.5 (1.1-1.8); Bilirubin Total 0.6 mg/dL (0.2-1.0); Globulin 4.8 g/dL (2.3-3.5); Protein, Total 7.2 g/dL (6.4-8.2); Troponin High Sensitivity 293.2 pg/mL (<58.9)
[2023-05-07 05:24] VITALS: BMI 35.7
[2023-05-07] MEDS: INSULIN REGULAR (HUMAN) 100 UNIT/ML SQ SCH (07:30)
[2023-05-07] MEDS: ASPIRIN EC 81 MG TAB PO SCH (09:41)
[2023-05-07 12:21] LABS: Ferritin 116.2 ng/mL (26-388)
[2023-05-07] MEDS: BUMETANIDE 1 MG TABLET PO SCH (13:08)
--- NOTE | 2023-05-07 13:37 | P.CNS ---
Date of Consult: 05/07/23 Chief Complaint: NSTEMI, dizziness. History of Present Illness: Patient with extensive cardiac history, including s/p CRISTINA, Carotid artery disease s/p bilateral carotid A stenting, CKD stage 3, presented with dizziness, no significant chest pain, no SOB, no palpitations, no syncope. Allergies No Known Allergies Allergy (Verified 10/20/22 10:08) Home Medications: Allopurinol 300 mg PO DAILY 04/18/19 Apremilast [Otezla] 30 mg PO BID 04/18/19 Hydralazine HCl [Apresoline] 100 mg PO Q8H 04/18/19 Insulin Detemir [Levemir Flextouch] 60 units SQ BID 04/18/19 Liraglutide [Victoza 2-Malvin] 1.8 units SQ DAILY 04/18/19 Omeprazole [Prilosec] 40 mg PO DAILY 04/18/19 Rosuvastatin [Crestor*] 10 mg PO DAILY 04/18/19 glipiZIDE [Glipizide ER] 5 mg PO BID 04/18/19 Gabapentin 300 mg PO BID 04/19/19 Baclofen 10 mg PO BEDTIME 01/11/22 Calcium Carbonate [Calcium] 600 mg PO DAILY #0 01/11/22 Cholecalciferol (Vitamin D3) [Vitamin D 1000 Iu Tab*] 2,000 unit PO DAILY #0 01/11/22 Magnesium Oxide [Magnesium] 250 mg PO BID 01/11/22 [place]-3/Dha/Epa/Fish Oil [Fish Oil 1,000 mg Softgel] 1 each PO BID 01/11/22 Bumetanide [Bumex*] 2 mg PO BID 04/08/22 Carvedilol [Coreg] 25 mg PO BID 04/08/22 Multivit-Min/FA/Lycopen/Lutein [Centrum Silver Tablet] 1 each PO DAILY 04/08/22 Amoxicillin 500 mg PO BID 10/28/22 Aspirin [Ab Chewable] 81 mg PO DAILY 05/07/23 Ferrous Sulfate [Iron] 325 mg PO BID 05/07/23 Ticagrelor [Brilinta] 60 mg PO BID 05/07/23 - Past Medical/Surgical History Diabetic: Yes -: Psoriasis -: Chronic kidney disease, Stage 3, Nephrology-Dr. Holt -: HTN -: Osteoarthritis -: Lymphedema -: Insulin dependent type 2 diabetes -: Gout -: CHFdiastolic -: Obstructive sleep apnea -: Hyperlipidemia -: GERD -: History of gastric ulcer -: Bilateral Knee Replacements -: Cholecystectomy -: both hands surgery + right fingers -: punji stick removal -: TAVR -: Carotid stents x2 -: Carpal tunnel Psychosocial/ Personal History: . He has 2 stepchildren, 1 child, and another adopted. He is retired. - Family History Father Medical History: Heart disease Notes: Pacer Mother Medical History: Cancer - Social History Smoking Status: Former smoker Alcohol use: No CD- Drugs: No Caffeine use: No Place of Residence: Home Review of Systems 10-point ROS is otherwise unremarkable Physical Examination Temp Pulse Resp BP Pulse Ox 97.5 F 67 18 129/60 100 05/07/23 08:00 05/07/23 08:00 05/07/23 08:00 05/07/23 08:00 05/07/23 08:00 General: Alert HEENT: Atraumatic Neck: Supple Respiratory: Clear to auscultation bilaterally Cardiovascular: Normal S1 S2, Edema Gastrointestinal: Normal bowel sounds Laboratory Data (last 24 hrs) 05/06/23 05/06/23 05/06/23 22:57 22:57 22:57 WBC 14.90 H Hgb 8.4 L Hct 25.7 L Plt Count 186 PT 14.5 H INR 1.33 Sodium 137 Potassium 4.2 BUN 39 H Creatinine 2.36 H Glucose 126 H Magnesium 2.3 Total Bilirubin 0.6 AST 24 ALT 18 Alkaline Phosphatase 68 - Problems (1) NSTEMI (non-ST elevated myocardial infarction) Current Visit: Yes Status: Acute Plan: Patient troponin is mildly elevated, patient report history of coronary angiogram but no stenting needed at that time NPO past mid night for nuclear stress test in am. please resume patient Brilinta 90 mg po BID (2) Carotid artery disease Current Visit: Yes Status: Acute Plan: patient presenting with diziness and he got history of bilateral carotid A stents. will get Carotid duplex please resume patient Brilinta 90 mg po BID (3) Acute on chronic diastolic heart failure Current Visit: Yes Status: Acute Plan: patient with +1 bilateral lower extremities edema but he also got CKD 3, recently his kidney MD lowered Bumex dose. resume higher dose of Bumex 2 mg po BID and monitor kidney function closely resume Coreg 25 mg po BID get Echo
--- NOTE | 2023-05-07 15:05 | P.PN ---
Date of Service: 05/07/23 Patient seen and examined. Cardiology input appreciated. Diagnosis NSTEMI History of carotid artery disease. History of aortic valve replacement. Prior history of embolic stroke Plan: Cardiology input appreciated Continue heparin. Resume diuretics-Bumex Continue Coreg Resume Brilinta for coronary artery disease. Cardiology is planning stress test tomorrow.
--- NOTE | 2023-05-07 16:53 | RAD REPORT ---
EXAM DESCRIPTION: USCarotid Artery Bilateral05/07/2023 4:00 pm CLINICAL HISTORY: ataxia COMPARISON: 2022 ultrasound FINDINGS: Stents have been placed into the distal common carotid/proximal internal carotid arteries bilaterally. The stents are patent. The velocity of the right internal carotid artery equals 118 cm/sec. The right ICA/CCA ratio normal The velocity of the left internal carotid artery equals 132 cm/sec. The left ICA/CCA ratio normal Mild plaque is present within the carotid arteries. The vertebral arteries demonstrate antegrade flow IMPRESSION: Patent carotid stents No significant abnormalities dissplayed NASCET criteria used. Mild 0-49% stenosis Moderate 50-69% stenosis Severe 70-99% stenosis
[2023-05-07] MEDS: carvediloL 25 MG TAB PO SCH (17:03)
[2023-05-07] MEDS ORDERED: ATORVASTATIN 20 MG TAB PO SCH (21:00)
[2023-05-07] MEDS: TICAGRELOR 60 MG PO SCH (21:00)
[2023-05-07] MEDS: ATORVASTATIN 40 MG TAB PO SCH (21:31)
[2023-05-07] MEDS: AMOXICILLIN TRIHYDR 250 MG CAP PO SCH (21:31)
[2023-05-07] MEDS: HEPARIN/D5W 25,000 UNIT/500 ML BAG IV SCH (22:17)
[2023-05-08 06:51] LABS: Absolute Basophils 0.1 K/uL (0-0.5); Absolute Eosinophils 0.3 K/uL (0-0.5); Absolute Lymphocytes (CBC) 1.3 K/uL (0.7-4.9); Absolute Monocytes 0.3 K/uL (0.1-1.3); Absolute Neutrophil 12.3 K/uL (1.8-8.0); Basophils % 0.8 % (0-1.3); Eosinophils % 1.8 % (0-4.4); Hematocrit 26.2 % (39.6-49.0); Hemoglobin 8.6 g/dL (13.6-17.9); Lymphocytes % 9.2 % (15.3-44.8); MCH 27.4 pg (27.0-35.0); MCV 83.2 fL (80-100); MPV 10.6 fL (7.6-11.3); Monocytes % 2.1 % (3.3-12.3); Neutrophils % 86.1 % (41.7-73.7); Nucleated Red Blood Cells % 0.1 % (0-0); Platelets 202 thou/uL (152-406); RBC Red Blood Cell Count 3.15 M/uL (4.33-5.43)
[2023-05-08 07:09] LABS: Albumin 2.5 g/dL (3.4-5.0); Albumin/Globulin Ratio 0.4 (1.1-1.8); Anion Gap 11.1 mEq/L (5.0-15.0); Bilirubin Total 0.7 mg/dL (0.2-1.0); Globulin 5.6 g/dL (2.3-3.5); Potassium 4.1 mEq/L (3.5-5.1); Protein, Total 8.1 g/dL (6.4-8.2)
[2023-05-08 08:09] LABS: Differential Total Cells Count 100; Segmented Neutrophils 85 % (40-80); White Blood Cell Scan OK (OK)
[2023-05-08 08:10] LABS: Blood Morphology Comment NOTED (NOT SEEN); Dohle Bodies PRESENT; Lymphocytes 8 % (15-42); Metamyelocytes 4 % (0-0); Monocytes 2 % (0-10); Platelet Estimate ADEQ; Polychromasia 1+
[2023-05-08] MEDS: TICAGRELOR 90 MG TABLET PO SCH (09:05)
--- NOTE | 2023-05-08 11:27 | RAD REPORT ---
EXAM DESCRIPTION: CT - Neck Angio - 05/07/2023 6:22 am CLINICAL HISTORY: Male, 78 years old, dizziness, ataxia COMPARISON: Same day CT head reported separately TECHNIQUE: CT acquisition of the head and neck performed after the administration of intravenous con trast. Postcontrast imaging was timed for arterial phase. Multiplanar reformatted images provided. Ma ximal intensity projection and/or 3D sequences were created by the technologist. This exam was perfor med according to departmental dose-optimization program which includes automated exposure control, ad justment of the mA and/or kV according to patient size, and/or use of iterative reconstruction techni que. FINDINGS: INTRACRANIAL: Brain: Assessment for intracranial hemorrhage better performed on recent noncontrast CT head. No evid ence of abnormal intracranial enhancement. CSF Spaces: Mild symmetric enlargement. HEAD: Skull: The skull and imaged face are intact. Soft tissue: No evidence of scalp or soft tissue injury. Orbits: Prior lens surgery. Other: The paranasal sinuses and mastoid cells are unremarkable. CTA HEAD AND NECK: Aorta: Conventional branching pattern. The great vessel origins are normal. Right carotid: No occlusion or dissection of the common carotid and cervical internal carotid arterie s. Atherosclerosis of the bulb and cervical internal carotid artery, with a patent proximal stent in place; mild rightward mass effect by bulky calcifications. Less than 25% stenosis of the nonstented p ortions of the ICA. External carotid arteries are patent. Left carotid: No occlusion or dissection of the common carotid and cervical internal carotid arteries . Atherosclerosis of the common carotid, bulb, and cervical internal carotid arteries with a patent p roximal ICA stent in place; mild posterior mass effect by bulky calcifications. Less than 25% stenosi s of the nonstented portions of the ICA. External carotid arteries are patent. Cervical vertebral: The origins of the vertebral arteries are patent. Nonflow-limiting stenosis of th e right V2, and bilateral V4 segments. No dissection. Intracranial circulation: Intracranial vasculature is normal in course and caliber. Approximately 50% stenosis of the cavernous ICAs, and 75% stenosis of the periophthalmic ICAs. The right but not left posterior communicating arteries are visualized. No aneurysm or vascular malformation. NECK: Soft tissues: Imaged soft tissues of the neck and upper chest are unremarkable. Bones: No acute findings. Multilevel cervical spondylosis. Lung apices: Clear. IMPRESSION: 1. See separate report of concurrent CT head without contrast. 2. Bilateral cervical ICA stents with less than 25% stenosis of nonstented portions. NASCET criteri a was used for assessment. 3. No large vessel intracranial occlusion. Up to 75% stenosis of the intracranial ICAs. 4. Mild bilateral vertebral atherosclerosis. Electronically signed by: Alexi Spaulding MD 05/07/2023 12:56 AM LAB TECHNOLOGIST Due to temporary technical issues with the PACS/Fluency reporting system, reports are being signed by the in house radiologist without review as a courtesy to ensure prompt reporting. The interpreting r adiologist is fully responsible for the content of the report.
--- NOTE | 2023-05-08 11:29 | RAD REPORT ---
EXAM DESCRIPTION: RAD - Chest Single View - 05/06/2023 11:13 pm CLINICAL HISTORY: 78-year-old male with lightheadedness. TECHNIQUE: Single view, AP portable chest was obtained. COMPARISON: None. FINDINGS: Unremarkable cardiac and mediastinal silhouette. Heart size is normal. Low lung volumes grossly clear without focal opacity, pneumothorax or pleural effusions. The visual ized bones are within normal limits. IMPRESSION: No acute cardiopulmonary abnormalities. Electronically signed by: Sandrita Monterroso MD 05/06/2023 11:40 PM ACCESS CONSULTANT Due to temporary technical issues with the PACS/Fluency reporting system, reports are being signed by the in house radiologist without review as a courtesy to ensure prompt reporting. The interpreting r adiologist is fully responsible for the content of the report.
--- NOTE | 2023-05-08 11:31 | RAD REPORT ---
EXAM DESCRIPTION: CT - Head Brain Wo Cont - 05/07/2023 6:23 am CLINICAL HISTORY: The patient is 78 years old and is Male; dizzy TECHNIQUE: Axial computed tomography images of the head/brain without intravenous contrast. Sagitt al and coronal reformatted images were created and reviewed. This CT exam was performed using one o r more of the following dose reduction techniques: automated exposure control, adjustment of the mA and/or kV according to patient size, and/or use of iterative reconstruction technique. COMPARISON: No relevant prior studies available. FINDINGS: Brain: Unremarkable. No hemorrhage. No significant white matter disease. No edema. Ventricles: Unremarkable. No ventriculomegaly. Bones/joints: Unremarkable. No acute fracture. Soft tissues: Unremarkable. Sinuses: Unremarkable as visualized. Mastoid air cells: Unremarkable as visualized. No mastoid effusion. IMPRESSION: No acute intracranial abnormality. Electronically signed by: Luis Castaneda MD 05/07/2023 12:33 AM INSURANCE ANALYST Due to temporary technical issues with the PACS/Fluency reporting system, reports are being signed by the in house radiologist without review as a courtesy to ensure prompt reporting. The interpreting r adiologist is fully responsible for the content of the report.
--- NOTE | 2023-05-08 11:32 | RAD REPORT ---
EXAM DESCRIPTION: CT - Head angio - 05/07/2023 6:23 am CLINICAL HISTORY: Male, 78 years old, dizziness, ataxia COMPARISON: Same day CT head reported separately TECHNIQUE: CT acquisition of the head and neck performed after the administration of intravenous con trast. Postcontrast imaging was timed for arterial phase. Multiplanar reformatted images provided. Ma ximal intensity projection and/or 3D sequences were created by the technologist. This exam was perfor med according to departmental dose-optimization program which includes automated exposure control, ad justment of the mA and/or kV according to patient size, and/or use of iterative reconstruction techni que. FINDINGS: INTRACRANIAL: Brain: Assessment for intracranial hemorrhage better performed on recent noncontrast CT head. No evid ence of abnormal intracranial enhancement. CSF Spaces: Mild symmetric enlargement. HEAD: Skull: The skull and imaged face are intact. Soft tissue: No evidence of scalp or soft tissue injury. Orbits: Prior lens surgery. Other: The paranasal sinuses and mastoid cells are unremarkable. CTA HEAD AND NECK: Aorta: Conventional branching pattern. The great vessel origins are normal. Right carotid: No occlusion or dissection of the common carotid and cervical internal carotid arterie s. Atherosclerosis of the bulb and cervical internal carotid artery, with a patent proximal stent in place; mild rightward mass effect by bulky calcifications. Less than 25% stenosis of the nonstented p ortions of the ICA. External carotid arteries are patent. Left carotid: No occlusion or dissection of the common carotid and cervical internal carotid arteries . Atherosclerosis of the common carotid, bulb, and cervical internal carotid arteries with a patent p roximal ICA stent in place; mild posterior mass effect by bulky calcifications. Less than 25% stenosi s of the nonstented portions of the ICA. External carotid arteries are patent. Cervical vertebral: The origins of the vertebral arteries are patent. Nonflow-limiting stenosis of th e right V2, and bilateral V4 segments. No dissection. Intracranial circulation: Intracranial vasculature is normal in course and caliber. Approximately 50% stenosis of the cavernous ICAs, and 75% stenosis of the periophthalmic ICAs. The right but not left posterior communicating arteries are visualized. No aneurysm or vascular malformation. NECK: Soft tissues: Imaged soft tissues of the neck and upper chest are unremarkable. Bones: No acute findings. Multilevel cervical spondylosis. Lung apices: Clear. IMPRESSION: 1. See separate report of concurrent CT head without contrast. 2. Bilateral cervical ICA stents with less than 25% stenosis of nonstented portions. NASCET criteri a was used for assessment. 3. No large vessel intracranial occlusion. Up to 75% stenosis of the intracranial ICAs. 4. Mild bilateral vertebral atherosclerosis. Electronically signed by: Alexi Spaulding MD 05/07/2023 12:56 AM VEHICLE DELIVERY WORKER Due to temporary technical issues with the PACS/Fluency reporting system, reports are being signed by the in house radiologist without review as a courtesy to ensure prompt reporting. The interpreting r adiologist is fully responsible for the content of the report.
--- NOTE | 2023-05-08 12:48 | ECHO ---
HEIGHT: 6 ft 8 in WEIGHT: 325 lb 11.2 oz DATE OF STUDY: 05/08/[address]: Gomez Solano MD 2-DIMENSIONAL: YES M.MODE: YES DOPPLER: YES COLOR FLOW: YES TDS: YES PORTABLE: YES DEFINITY: NO BUBBLE STUDY: NO DIAGNOSIS: EVALUATE CHEST PAIN CARDIAC HISTORY: CATHERIZATION: YES SURGERY: PROSTHETIC VALVE: YES PACEMAKER: MEASUREMENTS (cm) DIASTOLIC (NORMALS) SYSTOLIC (NORMALS) IVSd 1.0 (0.6-1.2) LA Diam 4.4 (1.9-4.0) LVEF 67% LVIDd 4.9 (3.5-5.7) LVIDs 3.1 (2.0-3.5) %FS 37% LVPWd 1.0 (0.6-1.2) Ao Diam 2.9 (2.0-3.7) 2 DIMENSIONAL ASSESSMENT: RIGHT ATRIUM: NORMAL LEFT ATRIUM: NORMAL RIGHT VENTRICLE: NORMAL LEFT VENTRICLE: NORMAL TRICUSPID VALVE: MILD TRICUSPID REGURGITATION MITRAL VALVE: MILD MITRAL ANNULAR CALCIFICATION PULMONIC VALVE: NORMAL AORTIC VALVE: BIOPROSTHETIC PERICARDIAL EFFUSION: NONE AORTIC ROOT: NORMAL LEFT VENTRICULAR WALL MOTION: NORMAL. DOPPLER/COLOR FLOW: DIASOTLIC DYSFUNCTION. COMMENTS: NORMAL LEFT VENTRICULAR SYSTOLIC FUNCTION, EJECTION FRACTION 55-60%, NORMAL WALL MOTION. DIASTOLIC DYSFUNCTION. NORMAL FUNCTIONING BIOPROSTHETIC AORTIC VALVE (DVI 0.5), MEAN GRADIENT 17mmHg. MODERATE PULMONARY HYPERTENSION, RIGHT VENTRICULAR SYSTOLIC PRESSURE 45-50mmHg. TECHNOLOGIST: SOPHIA FLOWERS
--- NOTE | 2023-05-08 13:45 | P.DS ---
Admission Date: 05/07/23 Discharge Date: 05/08/23 Disposition: ROUTINE DISCHARGE Discharge Condition: FAIR Reason for Admission: NSTEMI, dizziness. - Problems (1) NSTEMI (non-ST elevated myocardial infarction) Current Visit: Yes Status: Acute (2) Chronic venous hypertension w ulceration Current Visit: No Status: Acute (3) HTN (hypertension) Current Visit: No Status: Chronic Qualifiers: Hypertension type: primary hypertension Qualified Code(s): I10 - Essential (primary) hypertension (4) Type II diabetes mellitus Onset Date: 01/04/16 Current Visit: No Status: Chronic Qualifiers: Diabetes mellitus rat exterminator insulin use: with rat exterminator use Diabetes mellitus complication status: without complication Qualified Code(s): E11.9 - Type 2 diabetes mellitus without complications; Z79.4 - MCFP (current) use of insulin Brief History of Present Illness: 78-year-old male patient with medical history significant for cardiac disease status post aortic valve replacement, hypertension, hyperlipidemia, diabetes type 2, CKD stage III who follows with outpatient chip separator was evaluated for episode of dizziness. Patient reported has been feeling slightly dizzy for couple of days but no overt episode of fever, chills, rigor, nausea, vomiting. He also described a chronic cough for which he is on suppressive therapy with amoxacillin for some cryptic bloodstream infection diagnosed in the last year. In the ED he had lab work that revealed elevated troponin of over 200 so he was deemed to be having NSTEMI after review of his EKG and he was admitted for inpatient care. 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 He has been on aspirin and Brilinta. Hospital Course: Patient placed on observation on the medical floor. Troponin was slightly elevated but trended flat. Patient was seen and evaluated by cardiology Dr. Salas who recommended stress test. Patient weight noted to be above limits for nuclear stress test during the hospital. Carotid duplex done showed patent carotid artery stent. Echocardiogram showed normal functioning aortic valve. Cardiology evaluated patient today and recommended follow-up with him as an outpatient to continue evaluation with a stress test. Patient was asymptomatic during the hospital stay. Vitals have been stable he is ambulatory and tolerating diet. Vital Signs/Physical Exam: Temp Pulse Resp BP Pulse Ox 98 F 66 15 135/63 97 05/08/23 08:00 05/08/23 08:00 05/08/23 08:00 05/08/23 08:00 05/08/23 08:00 General: Alert, In no apparent distress, Oriented x3 HEENT: Mucous membr. moist/pink Neck: Supple, JVD not distended Respiratory: Clear to auscultation bilaterally, Normal air movement Cardiovascular: Regular rate/rhythm, Normal S1 S2, Edema (Bilateral lower extremity) Gastrointestinal: Normal bowel sounds, Soft and benign, Non-distended, No tenderness Musculoskeletal: Swelling (Bilateral legs) Integumentary: Other (Bilateral venous stasis dermatitis/hemosiderin staining with bleeding blister which has been dressed) Neurological: Normal strength at 5/5 x4 extr, Cranial nerves 3-12 intact Laboratory Data at Discharge: WBC 14.30 thou/uL (4.3-10.9) H 05/08/23 05:46 Hgb 8.6 g/dL (13.6-17.9) L D 05/08/23 05:46 Hct 26.2 % (39.6-49.0) L 05/08/23 05:46 Plt Count 202 thou/uL (152-406) 05/08/23 05:46 PT 14.5 SECONDS (9.5-12.5) H 05/06/23 22:57 INR 1.33 05/06/23 22:57 APTT 33.7 SECONDS (24.3-36.9) 05/08/23 05:46 Sodium 135 mEq/L (136-145) L 05/08/23 05:46 Potassium 4.1 mEq/L (3.5-5.1) 05/08/23 05:46 BUN 38 mg/dL (7-18) H 05/08/23 05:46 Creatinine 2.24 mg/dL (0.70-1.30) H 05/08/23 05:46 Glucose 153 mg/dL (74-106) H 05/08/23 05:46 Magnesium 2.3 mg/dL (1.6-2.4) 05/06/23 22:57 Total Bilirubin 0.7 mg/dL (0.2-1.0) 05/08/23 05:46 AST 17 U/L (15-37) 05/08/23 05:46 ALT 16 U/L (16-61) 05/08/23 05:46 Alkaline Phosphatase 67 U/L (45-117) 05/08/23 05:46 Home Medications: Allopurinol 300 mg PO DAILY 04/18/19 Apremilast [Otezla] 30 mg PO BID 04/18/19 Hydralazine HCl [Apresoline] 100 mg PO Q8H 04/18/19 Insulin Detemir [Levemir Flextouch] 60 units SQ BID 04/18/19 Liraglutide [Victoza 2-Malvin] 1.8 units SQ DAILY 04/18/19 Omeprazole [Prilosec] 40 mg PO DAILY 04/18/19 Rosuvastatin [Crestor*] 10 mg PO DAILY 04/18/19 glipiZIDE [Glipizide ER] 5 mg PO BID 04/18/19 Gabapentin 300 mg PO BID 04/19/19 Baclofen 10 mg PO BEDTIME 01/11/22 Calcium Carbonate [Calcium] 600 mg PO DAILY #0 01/11/22 Cholecalciferol (Vitamin D3) [Vitamin D 1000 Iu Tab*] 2,000 unit PO DAILY #0 01/11/22 Magnesium Oxide [Magnesium] 250 mg PO BID 01/11/22 [place]-3/Dha/Epa/Fish Oil [Fish Oil 1,000 mg Softgel] 1 each PO BID 01/11/22 Bumetanide [Bumex*] 2 mg PO BID 04/08/22 Carvedilol [Coreg] 25 mg PO BID 04/08/22 Multivit-Min/FA/Lycopen/Lutein [Centrum Silver Tablet] 1 each PO DAILY 04/08/22 Amoxicillin 500 mg PO BID 10/28/22 Aspirin [Ab Chewable Aspirin] 81 mg PO DAILY 05/07/23 Ferrous Sulfate [Iron] 325 mg PO BID 05/07/23 Ticagrelor [Brilinta] 60 mg PO BID 05/07/23 Diet: ADA Activity: Ad divya Followup: Yann Diaz DO [Primary Care Provider] - 1-2 Weeks Nawaf Dotson MD [ACTIVE - CAN ADMIT] - 1 Week (Follow up with Dr. Salas within 1 week.) Time spent managing pt's care (in minutes): 28
--- NOTE | 2023-05-08 14:01 | P.PN ---
Subjective Date of Service: 05/08/23 Chief Complaint: NSTEMI, dizziness. Subjective: No new changes Review of Systems 10-point ROS is otherwise unremarkable Physical Examination - Vital Signs Temperature: 98 F Blood Pressure: 135/63 Pulse: 66 Respirations: 15 Pulse Ox (%): 97 - Physical Exam General: Alert, Oriented x3 HEENT: Atraumatic Neck: Supple Respiratory: Clear to auscultation bilaterally Cardiovascular: No edema, Normal S1 S2 Gastrointestinal: Normal bowel sounds Assessment And Plan - Current Problems (Diagnosis) (1) NSTEMI (non-ST elevated myocardial infarction) Current Visit: Yes Status: Acute Plan: Patient troponin is mildly elevated, patient report history of coronary angiogram but no stenting needed at that time Patient was unable to get stress test due to weight and camera. continue Brilinta 90 mg po BID outpatient stress test to be scheduled in our office (2) Carotid artery disease Current Visit: Yes Status: Acute Plan: patient presenting with diziness and he got history of bilateral carotid A stents. carotid duplex is normal. continue Brilinta 90 mg po BID (3) Acute on chronic diastolic heart failure Current Visit: Yes Status: Acute Plan: patient with +1 bilateral lower extremities edema but he also got CKD 3, recently his kidney MD lowered Bumex dose. resume higher dose of Bumex 2 mg po BID and monitor kidney function closely resume Coreg 25 mg po BID Echo shows mild elevated filling pressure with moderate pulmonary hypertension
--- NOTE | 2023-05-08 15:23 | P.PN ---
Blood culture came back positive for gram-positive cocci in both anaerobic and aerobic bottles. Patient with a history of cryptogenic bacteremia, unknown source. He has undergone extensive workup to identify source of infection but that has been unsuccessful according to the patient. History of bilateral prostatic knees. History of aortic valve replacement Patient has bilateral lower extremity venous stasis dermatitis with hemosiderin staining and intermittent skin breakdown which could be the source of infection. I had a lengthy discussion with the patient and her daughter. They are concerned that the infection has not cleared or keeps coming back. Patient was initially requested for discharge and after he was cleared by cardiology but now has agreed to stay inpatient for treatment of the infection Case discussed with infectious disease Dr. Baker who recommended IV vancomycin and rifampin as we wait for organism identification and sensitivity. Repeat blood cultures. Dr. Baker will follow-up with patient tomorrow. Pharmacy to dose antibiotics given history of chronic kidney disease. Monitor vancomycin level closely. Diagnosis: Gram-positive cocci bacteremia
[2023-05-08] MEDS ORDERED: RIFAMPIN 600 MG IV SCH (16:00)
--- NOTE | 2023-05-08 16:11 | P.PN ---
Subjective Date of Service: 05/08/23 Chief Complaint: NSTEMI, dizziness. Patient denies any complaint today and requested to go home. He is tolerating diet, no recorded fever. He denies any chest pain or shortness of breath. He has weeping sores on the left leg which is dressed. Physical Examination - Vital Signs Temperature: 98 F Blood Pressure: 135/63 Pulse: 66 Respirations: 15 Pulse Ox (%): 97 - Studies Laboratory Data (last 24 hrs) 05/08/23 05/08/23 05/08/23 13:11 05:46 05:46 WBC Hgb Hct Plt Count APTT Cancelled 33.7 Sodium 135 L Potassium 4.1 BUN 38 H Creatinine 2.24 H Glucose 153 H Total Bilirubin 0.7 AST 17 ALT 16 Alkaline Phosphatase 67 05/08/23 05/07/23 05/07/23 05:46 22:52 17:30 WBC 14.30 H Hgb 8.6 L D Hct 26.2 L Plt Count 202 APTT 35.4 33.3 Sodium Potassium BUN Creatinine Glucose Total Bilirubin AST ALT Alkaline Phosphatase Assessment And Plan - Current Problems (Diagnosis) (1) NSTEMI (non-ST elevated myocardial infarction) Current Visit: Yes Status: Acute (2) Chronic venous hypertension w ulceration Current Visit: No Status: Acute (3) HTN (hypertension) Current Visit: No Status: Chronic Qualifiers: Hypertension type: primary hypertension Qualified Code(s): I10 - Essential (primary) hypertension (4) Type II diabetes mellitus Onset Date: 01/04/16 Current Visit: No Status: Chronic Qualifiers: Diabetes mellitus intermediate project manager insulin use: with intermediate project manager use Diabetes mellitus complication status: without complication Qualified Code(s): E11.9 - Type 2 diabetes mellitus without complications; Z79.4 - joint terminal attack controller (current) use of insulin (5) Gram-positive cocci bacteremia Current Visit: Yes Status: Acute (6) 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 Abdomen: Soft, nondistended, nontender, normal bowel sounds. Extremities: No tenderness, no deformity Skin: Bilateral lower extremities venous stasis dermatitis with weeping sores- worse on the left, bilateral leg hemosiderin staining, no rash, no nodules or ulcers. Neuro: No focal motor deficit. Normal speech. Psychiatry: Normal mood, no agitation. Assessment and plan NSTEMI history of carotid artery disease history of aortic valve prosthesis Troponin trended flat. Patient seen by cardiology and nuclear stress test recommended. His weight was over the limit for nuclear stress test on this hospital so it was not done. Carotid Doppler showed patent carotid stents. Echocardiogram showed normal functioning aortic valve. He was treated briefly with heparin drip. Continue Brilinta and aspirin. On heparin drip for NSTEMI. Patient to complete 48 to [address] of treatment[address] Cardiology Dr. Salas recommend follow-up in the office as outpatient for further evaluation and arrangement for stress test. Gram-positive cocci bacteremia History of aortic valve prosthesis History of bilateral knee prosthesis History of cryptogenic bacteremia All blood cultures growing gram-positive cocci Patient with moderate leukocytosis, no fever. Patient and family updated of the blood culture findings. Patient has been on amoxicillin suppressive therapy for cryptogenic bacteremia. Infectious disease consulted. Case discussed with infectious disease Dr. Baker who recommended vancomycin and rifampin Repeat blood cultures. Pharmacy to renally dose medications. Monitor vancomycin level closely. DVT Prophylaxis: Heparin Full code.
[2023-05-08] MEDS: VANCOMYCIN 3 GM in NA CHLORIDE 0.9% 500 ML IVPB ONE (16:46)
[2023-05-09 05:00] LABS: Absolute Basophils 0.1 K/uL (0-0.5); Absolute Eosinophils 0.2 K/uL (0-0.5); Absolute Lymphocytes (CBC) 0.9 K/uL (0.7-4.9); Absolute Monocytes 0.3 K/uL (0.1-1.3); Absolute Neutrophil 11.3 K/uL (1.8-8.0); Basophils % 0.9 % (0-1.3); Eosinophils % 1.7 % (0-4.4); Hematocrit 24.6 % (39.6-49.0); Hemoglobin 8.2 g/dL (13.6-17.9); Lymphocytes % 7.2 % (15.3-44.8); MCH 27.4 pg (27.0-35.0); MCHC 33.3 g/dL (32.0-36.0); MCV 82.3 fL (80-100); MPV 9.7 fL (7.6-11.3); Monocytes % 2.3 % (3.3-12.3); Nucleated Red Blood Cells % 0.1 % (0-0); Platelets 168 thou/uL (152-406); RBC Red Blood Cell Count 2.99 M/uL (4.33-5.43)
[2023-05-09 05:14] LABS: Neutrophils % 87.9 % (41.7-73.7)
[2023-05-09 05:16] LABS: Albumin 2.4 g/dL (3.4-5.0); Albumin/Globulin Ratio 0.5 (1.1-1.8); Anion Gap 9.7 mEq/L (5.0-15.0); Globulin 5.2 g/dL (2.3-3.5); Potassium 3.7 mEq/L (3.5-5.1); Protein, Total 7.6 g/dL (6.4-8.2)
--- NOTE | 2023-05-09 09:11 | P.CNS ---
Date of Consult: 05/09/23 Reason for Consult: gram positive bacteremia Chief Complaint: NSTEMI, dizziness. History of Present Illness: 78-year-old male patient with medical history significant for cardiac disease s/p aortic valve replacement, hypertension, hyperlipidemia, diabetes type 2, CKD stage III who presented to the ED with complaints of dizziness for a few days. ED workup revealed elevated troponin > 200 so he was deemed to be having NSTEMI after review of his EKG and he was admitted for inpatient care. 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 Blood cultures growing gram positive cocci, patient was started on empiric antibiotics. Infectious disease consulted. Allergies No Known Allergies Allergy (Verified 10/20/22 10:08) Home medications list reviewed: Yes Home Medications: Allopurinol 300 mg PO DAILY 04/18/19 Apremilast [Otezla] 30 mg PO BID 04/18/19 Hydralazine HCl [Apresoline] 100 mg PO Q8H 04/18/19 Insulin Detemir [Levemir Flextouch] 60 units SQ BID 04/18/19 Liraglutide [Victoza 2-Malvin] 1.8 units SQ DAILY 04/18/19 Omeprazole [Prilosec] 40 mg PO DAILY 04/18/19 Rosuvastatin [Crestor*] 10 mg PO DAILY 04/18/19 glipiZIDE [Glipizide ER] 5 mg PO BID 04/18/19 Gabapentin 300 mg PO BID 04/19/19 Baclofen 10 mg PO BEDTIME 01/11/22 Calcium Carbonate [Calcium] 600 mg PO DAILY #0 01/11/22 Cholecalciferol (Vitamin D3) [Vitamin D 1000 Iu Tab*] 2,000 unit PO DAILY #0 01/11/22 Magnesium Oxide [Magnesium] 250 mg PO BID 01/11/22 Thousandsticks-3/Dha/Epa/Fish Oil [Fish Oil 1,000 mg Softgel] 1 each PO BID 01/11/22 Bumetanide [Bumex*] 2 mg PO BID 04/08/22 Carvedilol [Coreg] 25 mg PO BID 04/08/22 Multivit-Min/FA/Lycopen/Lutein [Centrum Silver Tablet] 1 each PO DAILY 04/08/22 Amoxicillin 500 mg PO BID 10/28/22 Aspirin [Ab Chewable Aspirin] 81 mg PO DAILY 05/07/23 Ferrous Sulfate [Iron] 325 mg PO BID 05/07/23 Ticagrelor [Brilinta] 60 mg PO BID 05/07/23 - Past Medical/Surgical History Diabetic: Yes -: Psoriasis -: Chronic kidney disease, Stage 3, Nephrology-Dr. Holt -: HTN -: Osteoarthritis -: Lymphedema -: Insulin dependent type 2 diabetes -: Gout -: CHFdiastolic -: Obstructive sleep apnea -: Hyperlipidemia -: GERD -: History of gastric ulcer -: Bilateral Knee Replacements -: Cholecystectomy -: both hands surgery + right fingers -: punji stick removal -: TAVR -: Carotid stents x2 -: Carpal tunnel Psychosocial/ Personal History: . He has 2 stepchildren, 1 child, and another adopted. He is retired. - Family History Father Medical History: Heart disease Notes: Pacer Mother Medical History: Cancer - Social History Smoking Status: Former smoker Alcohol use: No CD- Drugs: No Caffeine use: No Place of Residence: Home Review of Systems 10-point ROS is otherwise unremarkable General: Weakness Integumentary: Other (venous stasis ulcer) Physical Examination Temp Pulse Resp BP Pulse Ox 99 F 60 18 139/65 95 05/09/23 04:00 05/09/23 04:00 05/09/23 04:00 05/09/23 04:00 05/09/23 04:00 General: Alert, In no apparent distress, Oriented x3 HEENT: Atraumatic, Normocephalic Respiratory: Clear to auscultation bilaterally, Normal air movement (on room air) Cardiovascular: Regular rate/rhythm, Edema (BLE edema) Gastrointestinal: Normal bowel sounds, Soft and benign Integumentary: Venous stasis ulcer (LLE) Neurological: Normal speech, Normal affect Laboratory Data - Reviewed Microbiology Data - Reviewed Imagings Data: - Reviewed Conclusions/Impression: Problem List NSTEMI Gram-Positive Bacteremia Diabetes Mellitus type II Bilateral knee prosthesis Prosthetic aortic valve Hypertension Chronic Kidney Disease stage III Coronary Artery Disease Gram-Positive Bacteremia - blood cultures 05/06: gram positive cocci in 2/2 bottles - TTE 05/06: no reported vegetation - History of E.faecalis bacteremia last year 04/08/22 patient reports [facility] without [facility] of source/ cryptogenic bacteremia - completed course of IV antibiotics and and was started on Amoxicillin PO as prophylaxis. - Currently on Vancomycin and Rifampin (started 05/07) Recommendations - Continue Vancomycin and Rifampin for now. Will follow up with final blood culture results and adjust antibiotics as appropriate. - Repeat blood culture ordered 05/08 - Monitor CBC, BMP and vanco levels. - Renally dose medications. - venous stasis ulcer LLE: Rinse with vashe, apply xeroform and cover with gauze then kerlix. Then ANGELA wrap. Patient will require PICC line, to be placed following negative blood cultures and continued for 14-28 days. Case discussed with Manan Trujillo
--- NOTE | 2023-05-09 10:06 | P.PN ---
Date of Service: 05/09/23 Subjective: dizziness resolved. hasn't had any more episodes per patient couldn't get stress test done here, plan to get it done in office in near future after discharge no new / worsening symptoms /problems afebrile ROS: 10 point ROS as noted above, otherwise negative Physical Exam: GEN: Alert, oriented, NAD HEENT: Normal conjunctiva, sclera anicteric, CV: Regular rate and rhythm, trace bilateral lower extremity edema Pulm: Nonlabored respirations on room air, clear bilaterally ABD: soft, nontender, nondistended Neuro: Normal speech, normal affect Skin: left lower leg with superficial wound, no purulent drainage Problem List: NSTEMI Gram-positive bacteremia Acute on chronic diastolic CHF TORRES on CKD3 moderate -severe iron deficiency anemia IDDM2 Hypertension hx of cryptogenic bacteremia hx of CAD hx of bilateral knee prosthesis / aortic valve prosthesis NSTEMI hx of CAD troponins mildly elevated but trended flat unable to get stress test done here secondary to weight / size Cardiology is following Recommended outpatient f/u for nuclear stress test continue aspirin, statin, brilinta due to gram+ bacteremia and h/o cryptogenic bacteremia, he was started on rifampin + vanc pharmacy reports interaction of rifampin and brillinta - checking with cardio if ok to switch to plavix PRN nitro Gram-positive bacteremia hx of cryptogenic bacteremia hx of bilateral knee prosthesis / aortic valve prosthesis Patient has hx of cryptogenic bacteremia. On amoxicillin prophylactically reportedly had multiple tests done at [facility] ~1.5yrs ago, and never found source states he was dc'd with 1 week of addtional IV antibiotics, then 3 weeks later got worse, and had to do 6 weeks IV antibiotics. once completed the 6 weeks of IV, he was transitioned to chronic / prophylactic amoxicillin blood cx (05/06): GPC in 2/2 bottles repeat blood cx (05/08): pending continue vancomycin and rifampin (05/07-) afebrile, leukocytosis improving ID consulted awaiting repeat blood cultures to be negative prior to obtaining PICC Acute on chronic diastolic CHF TORRES on CKD3 Recently had bumex dose lowered per his hoisting laborer bumex restarted at 2 mg PO BID per cardiology continue to monitor renal function creatinine improving, edema improving moderate -severe iron deficiency anemia iron studies this hospitalization consistent with iron deficiency anemia. Iron: 20. Tsat%: 9.9% Daily CBC IDDM2 Accuchecks, SSI confirm home regimen Hypertension continue home antihypertensives as appropriate Code: Full Dispo: Home, ~2-3 days Pending blood cultures without growth will need PICC and intermediate antibiotics
[2023-05-10 03:20] LABS: Absolute Basophils 0.1 K/uL (0-0.5); Absolute Eosinophils 0.3 K/uL (0-0.5); Absolute Lymphocytes (CBC) 0.9 K/uL (0.7-4.9); Absolute Monocytes 0.3 K/uL (0.1-1.3); Absolute Neutrophil 9.8 K/uL (1.8-8.0); Basophils % 0.9 % (0-1.3); Eosinophils % 2.3 % (0-4.4); Hematocrit 23.7 % (39.6-49.0); Hemoglobin 7.7 g/dL (13.6-17.9); MCH 26.8 pg (27.0-35.0); MCHC 32.4 g/dL (32.0-36.0); MCV 82.5 fL (80-100); MPV 9.9 fL (7.6-11.3); Monocytes % 2.6 % (3.3-12.3); Platelets 182 thou/uL (152-406); RBC Red Blood Cell Count 2.88 M/uL (4.33-5.43); Red Cell Distribution Width 17.8 % (12.1-15.2)
[2023-05-10 03:28] LABS: Albumin 2.6 g/dL (3.4-5.0); Albumin/Globulin Ratio 0.5 (1.1-1.8); Anion Gap 8.6 mEq/L (5.0-15.0); Bilirubin Total 0.7 mg/dL (0.2-1.0); Globulin 4.9 g/dL (2.3-3.5); Magnesium 2.3 mg/dL (1.6-2.4); Potassium 3.6 mEq/L (3.5-5.1); Protein, Total 7.5 g/dL (6.4-8.2)
[2023-05-10 03:40] LABS: Neutrophils % 86.2 % (41.7-73.7)
[2023-05-10] MEDS: VANCOMYCIN 2 GM in NA CHLORIDE 0.9% 500 ML IVPB SCH (05:44)
--- NOTE | 2023-05-10 07:53 | P.PN ---
Date of Service: 05/10/23 Subjective: no new/worseningy symptoms feels some "restriction" in his chest, thinks maybe from the cardiac monitor technician on his chest, no change in sensation when ambulating around the floor with PT no nausea/vomiting, no diarrhea reports adhesive tape allergy frustrated "going through this again" ROS: 10 point ROS as noted above, otherwise negative Physical Exam: GEN: Alert, oriented, NAD; frustrated HEENT: Normal conjunctiva, sclera anicteric, CV: Regular rate and rhythm, trace bilateral lower extremity edema Pulm: Nonlabored respirations on room air, clear bilaterally ABD: soft, nontender, nondistended Neuro: Normal speech, normal affect Integumentary: venous stasis ulcer LLE Problem List: NSTEMI Gram-positive bacteremia Severe s/p TAVR (09/2021) hx of cryptogenic (enterococcus) bacteremia (02/17, 04/21) hx of carotid artery stenosis (s/p Right ICA - 03/20/23, Left ICA 12/11/22) Acute on chronic diastolic CHF TORRES on CKD3 moderate-severe iron deficiency anemia; chronic venous stasis ulcer LLE Chronic venous insufficiency IDDM2 Hypertension Obstructive sleep apnea Gout psoriatic arthritis hx of bilateral knee prosthesis hx of perioperative atrial fibrillation NSTEMI CAD s/p PCI x2 (Right ICA 03/20/23, Left ICA 12/11/22) Severe s/p TAVR (09/2021) hx of perioperative atrial fibrillation troponins mildly elevated but trended flat unable to get stress test done here secondary to weight / size Cardiology is following Recommended outpatient f/u for nuclear stress test continue aspirin, statin. brilinta swjtched to plavix 05/09 after discussion with pharmacy and cardio - interaction of rifampin and brillinta Previously on eliquis but was discontinued per cardiology ~11/2022 after PCI / starting brilinta. TTE (05/06): 67% EF, diastolic dysfunction, normal functioning bioprosthetic aortic valve, mean gradient 17mmHG, moderate pulm htn last known MITLON from 04/11/22: no e/o IE, normal BiV function, TAVR valve well seated with normal function. discussed with patient may need another MILTON to re-eval valve for vegetation given recurrent bacteremia will discuss with cardiology Gram-positive bacteremia hx of cryptogenic (enterococcus) bacteremia (02/17, 04/21) hx of bilateral knee prosthesis / aortic valve prosthesis Patient has hx of cryptogenic bacteremia - recurrent Enterococcus. At least 2 prior episodes. (January 2022 & March 2022) reportedly had multiple tests done at [facility] ~1.5 yrs ago, and never found source states he was dc'd with 1 week of additional IV antibiotics, then 3 weeks later got worse, and had to do 6 weeks of IV ampicillin / rocephin (completed 05/23/22). once completed the 6 weeks of IV, he was transitioned to chronic / prophylactic amoxicillin blood cx (05/06): GPC non-beta hemolytic strep in 2/2 bottles repeat blood cx (05/08): NGTD continue vancomycin and rifampin (05/07-) continue rifampin/vanc will need MILTON as noted above afebrile, leukocytosis improving ID consulted awaiting repeat blood cultures to be negative prior to obtaining PICC Acute on chronic diastolic CHF TORRES on CKD3 Recently had bumex dose lowered per his microsoft exchange architect bumex restarted at 2 mg PO BID per cardiology continue to monitor renal function baseline creatinine ~1.5-1.8 per [facility] records moderate-severe iron deficiency anemia iron studies this hospitalization consistent with iron deficiency anemia. Iron: 20. Tsat%: 9.9% Daily CBC venous stasis ulcer LLE Chronic venous insufficiency Continue wound care with vashe, apply xeroform and cover with gauze then kerlix. Then ANGELA wrap. IDDM2 Accuchecks, SSI confirm home regimen Hypertension continue home antihypertensives as appropriate Obstructive sleep apnea uses CPAP at night Gout Psoriatic arthritis one reported episode of podagra decades ago, no recent flare ups. overall gout controlled takes otezla at home Code: Full Dispo: Home, ~2-3 days Pending blood cultures without growth will need PICC and intermediate antibiotics MILTON
[2023-05-10] MEDS: CLOPIDOGREL 75 MG TABLET PO SCH (08:05)
--- NOTE | 2023-05-10 08:56 | P.PN ---
Date of Service: 05/10/23 Chief Complaint: NSTEMI, dizziness. Subjective: Patient seen and examined at bedside. No acute events overnight. Denies any new or worsening complaints at this time. Physical Examination Temp Pulse Resp BP Pulse Ox 99 F 66 18 141/73 H 97 05/10/23 04:00 05/10/23 08:05 05/10/23 04:00 05/10/23 08:05 05/10/23 04:00 General: Alert, In no apparent distress, Oriented x3 HEENT: Atraumatic, Normocephalic Respiratory: Clear to auscultation bilaterally, Normal air movement. On room air. Cardiovascular: Regular rate/rhythm. BLE edema. Gastrointestinal: Normal bowel sounds, Soft and benign Integumentary: Venous stasis ulcer LLE, dressing clean dry and intact. Neurological: Normal speech, Normal affect Laboratory Data - Reviewed Microbiology Data - Reviewed Imagings Data: - Reviewed Medications List: Reviewed Assessment and Plan Problem List NSTEMI Gram-Positive Bacteremia Diabetes Mellitus type II Bilateral knee prosthesis Prosthetic aortic valve Hypertension Chronic Kidney Disease stage III Coronary Artery Disease Gram-Positive Bacteremia - blood cultures 05/06: non-beta hemolytic strep in 2/2 bottles - Repeat blood cultures 05/08: pending - TTE 05/06: no reported vegetation - History of E.faecalis bacteremia last year 04/08/22 patient reports [facility] without identification of source/ cryptogenic bacteremia - completed course of IV antibiotics and and was started on Amoxicillin PO as prophylaxis. - Currently on Vancomycin and Rifampin (started 05/07) Leukocytosis improving. Afebrile. History: TAVR 09/2021 E. faecalis bacteremia 01/2022, 02/2022, 03/2022 - Completed 6 weeks IV Ceftriaxone and Ampicillin - Has been on suppressive Amoxicillin PO Underwent Right carotid stent placement 03/20/2023 Now with gram-positive bacteremia 05/09/2023 Recommendations - Continue Vancomycin and Rifampin for now. Will follow up with final blood culture results and adjust antibiotics as appropriate. - Repeat blood culture ordered 05/08, follow up. - Patient will require PICC line, to be placed following negative blood cultures. Recommend obtaining MILTON to eval for vegetation. Patient has history of TAVR, recurrent e.faecalis bacteremia. Last MILTON done last year 03/2022. Patient will require IV antibiotics for at least 14 days following negative blood culture. - venous stasis ulcer LLE: Rinse with vashe, apply xeroform and cover with gauze then kerlix. Then ANGELA wrap. - Monitor CBC, BMP and vanco levels. - Renally dose medications. Case discussed with Manan Trujillo
[2023-05-10] MEDS: POTASSIUM CL SA 10 MEQ TAB PO ONE (10:43)
[2023-05-10] MEDS: TRAZODONE 50 MG TABLET PO SCH (21:06)
[2023-05-11 06:29] LABS: Anion Gap 8.7 mEq/L (5.0-15.0); Magnesium 2.2 mg/dL (1.6-2.4); Potassium 3.7 mEq/L (3.5-5.1)
[2023-05-11 06:36] LABS: Hematocrit 23.6 % (39.6-49.0); Hemoglobin 7.8 g/dL (13.6-17.9); MCH 27.3 pg (27.0-35.0); MCHC 32.8 g/dL (32.0-36.0); MCV 83.1 fL (80-100); MPV 9.6 fL (7.6-11.3); Platelets 193 thou/uL (152-406); RBC Red Blood Cell Count 2.84 M/uL (4.33-5.43); Red Cell Distribution Width 17.9 % (12.1-15.2)
[2023-05-11] MEDS: PANTOPRAZOLE 40MG TABLET PO SCH (07:30)
[2023-05-11] MEDS ORDERED: ATROPINE SULF 1 MG/10 ML SYR IV ONE (07:44)
[2023-05-11] MEDS ORDERED: FENTANYL CITR 100 MCG/2 ML ONE (07:44)
[2023-05-11] MEDS ORDERED: FLUMAZENIL 0.1 MG/ML (5 mL VIAL) IV ONE (07:45)
[2023-05-11] MEDS ORDERED: MIDAZOLAM HCL 5 ML ONE (07:45)
[2023-05-11] MEDS ORDERED: METOPROLOL TARTRATE 5 MG/5 ML INJ IV ONE (07:45)
[2023-05-11] MEDS ORDERED: NALOXONE 0.4 MG/ML VIAL ONE (07:45)
[2023-05-11] MEDS ORDERED: HYDRALAZINE HCL 20 MG/ML VIAL ONE (07:46)
[2023-05-11] MEDS: NA CHLORIDE 0.9% 500 ML ONE ×2 (07:50→08:45)
[2023-05-11] MEDS: LIDOCAINE 2% VISCOUS ORAL 20 ML, SIMPLE SYRUP 20 ML MM ONE (08:00)
--- NOTE | 2023-05-11 08:31 | P.PN ---
Date of Service: 05/11/23 Subjective: Had MILTON done this morning. pending results denies urinary symptoms, no diarrhea recently denies any recent cuts / abrasions / wounds to his knowledge no acute events overnight afebrile ROS: 10 point ROS as noted above, otherwise negative Physical Exam: GEN: Alert, oriented, NAD; frustrated HEENT: Normal conjunctiva, sclera anicteric, CV: Regular rate and rhythm, 1+ bilateral lower extremity edema Pulm: Nonlabored respirations on room air, clear bilaterally ABD: soft, nontender, nondistended Neuro: Normal speech, normal affect Integumentary: venous stasis ulcer LLE Problem List: NSTEMI Enterococcus Faecalis bacteremia Severe s/p TAVR (09/2021) hx of cryptogenic (enterococcus) bacteremia (02/17, 04/21) hx of carotid artery stenosis (s/p Right ICA - 03/20/23, Left ICA 12/11/22) Acute on chronic diastolic CHF TORRES on CKD3 moderate-severe iron deficiency anemia; chronic venous stasis ulcer LLE Chronic venous insufficiency IDDM2 Hypertension Obstructive sleep apnea Gout psoriatic arthritis hx of bilateral knee prosthesis hx of perioperative atrial fibrillation NSTEMI CAD s/p PCI x2 (Right ICA 03/20/23, Left ICA 12/11/22) Severe s/p TAVR (09/2021) hx of perioperative atrial fibrillation troponins mildly elevated but trended flat unable to get stress test done here secondary to weight / size; advised to f/u outpatient for stress test Cardiology is following continue aspirin, statin. brilinta swjtched to plavix 05/09 after discussion with pharmacy and cardio - interaction of rifampin and brillinta Previously on eliquis but was discontinued per cardiology ~11/2022 after PCI / starting brilinta. TTE (05/06): 67% EF, diastolic dysfunction, normal functioning bioprosthetic aortic valve, mean gradient 17mmHG, moderate pulm htn last known MILTON from 04/11/22: no e/o IE, normal BiV function, TAVR valve well seated with normal function. discussed with patient will need another MILTON to re-eval valve for vegetation given recurrent bacteremia s/p MILTON today. Results pending - (05/10) Enterococcus Faecalis bacteremia hx of cryptogenic (enterococcus) bacteremia (02/17, 04/21) hx of bilateral knee prosthesis / aortic valve prosthesis Patient has hx of cryptogenic bacteremia - recurrent Enterococcus. At least 2 prior episodes. (January 2022 & March 2022) reportedly had multiple tests done at [facility] ~1.5 yrs ago, and never found source states he was dc'd with 1 week of additional IV antibiotics, then 3 weeks later got worse, and had to do 6 weeks of IV ampicillin / rocephin (completed 05/23/22). once completed the 6 weeks of IV, he was transitioned to chronic / prophylactic amoxicillin blood cx (05/06): Enterococcus Faecalis in 2/2 bottles with similar sensitivities to prior episodes repeat blood cx (05/08): GPC growing in 2/2 bottles repeat blood cx (05/10): pending continue vancomycin and rifampin (05/07-) will discuss with ID regarding tailoring abx per culture sensitivities afebrile, leukocytosis improving ID is following awaiting repeat blood cultures to be negative prior to obtaining PICC s/p MILTON today. Results pending (05/10) Acute on chronic diastolic CHF TORRES on CKD3 Recently had bumex dose lowered per his automotive customer experience advisor bumex restarted at 2 mg PO BID per cardiology continue to monitor renal function nephrology consulted baseline creatinine ~1.5-1.8 per [facility] records creatinine improving moderate-severe iron deficiency anemia, chronic iron studies this hospitalization consistent with iron deficiency anemia. Iron: 20. Tsat%: 9.9% Daily CBC venous stasis ulcer LLE Chronic venous insufficiency Continue wound care with vashe, apply xeroform and cover with gauze then kerlix. Then ANGELA wrap. IDDM2 Accuchecks, SSI confirm home regimen Hypertension continue home antihypertensives as appropriate Obstructive sleep apnea uses CPAP at night Gout Psoriatic arthritis one reported episode of podagra decades ago, no recent flare ups. overall gout controlled takes otezla at home Code: Full Dispo: Home, several days Pending blood cultures without growth will need PICC and penitentiary antibiotics
--- NOTE | 2023-05-11 08:48 | P.PN ---
Date of Service: 05/11/23 Chief Complaint: NSTEMI, dizziness. Subjective: In no apparent distress. MILTON today. Physical Examination Temp Pulse Resp BP Pulse Ox 98.4 F 68 18 120/48 L 94 05/11/23 04:00 05/11/23 04:00 05/11/23 04:00 05/11/23 04:00 05/11/23 04:00 General: Alert, In no apparent distress, Oriented x3 HEENT: Atraumatic, Normocephalic Respiratory: Clear to auscultation bilaterally, Normal air movement. On room air. Cardiovascular: Regular rate/rhythm. BLE edema. Gastrointestinal: Normal bowel sounds, Soft and benign Integumentary: Venous stasis ulcer LLE, dressing clean dry and intact. Neurological: Normal speech, Normal affect Laboratory Data - Reviewed Microbiology Data - Reviewed Imagings Data: - Reviewed Medications List: Reviewed Assessment and Plan Problem List NSTEMI Gram-Positive Bacteremia Diabetes Mellitus type II Bilateral knee prosthesis Prosthetic aortic valve Hypertension Chronic Kidney Disease stage III Coronary Artery Disease E. faecalis Bacteremia - blood cultures 05/06: Enterococcus faecalis - penicillin-susceptible and synergy with gentamycin positive. - Repeat blood cultures: - 05/08: gram positive cocci - 05/10: pending - TTE 05/06: no reported vegetation - MILTON 05/10: pending - History of E.faecalis bacteremia last year 04/08/22 patient reports [facility] of source/ cryptogenic bacteremia - completed 6 week course of IV antibiotics and then started on suppressive Amoxicillin PO. - Vancomycin and Rifampin (05/07-05/10) -> switched to Ampicillin and Ceftriaxone following culture results Leukocytosis improving. Afebrile. History: TAVR 09/2021 E. faecalis bacteremia 01/2022, 02/2022, 03/2022 - Completed 6 weeks IV Ceftriaxone and Ampicillin - Has been on suppressive Amoxicillin PO Underwent Right carotid stent placement 03/20/2023 Now with E. faecalis bacteremia 05/09/2023 Recommendations - Blood cultures resulting with e.faecalis, concern for e.faecalis endocarditis: started on Ampicillin and Rocephin IV. - MILTON this morning, pending results. - Continue Ampicillin and Rocephin IV for at least 4 weeks. - Patient will require PICC line, to be placed following negative blood cultures - venous stasis ulcer LLE: Rinse with vashe, apply xeroform and cover with gauze then kerlix. Then ANGELA wrap. - Monitor CBC, BMP - Renally dose medications. Pharmacy consulted. Case discussed with Manan Trujillo
[2023-05-11] MEDS: EPOETIN ALFA-EPBX 10,000 UNIT/ML VIAL SQ SCH (12:56)
[2023-05-11] MEDS: METOLAZONE 2.5 MG TABLET PO SCH (12:56)
--- NOTE | 2023-05-11 15:49 | CON ---
Date of Consultation: 05/11/2023 Reason For Consultation: Elevated BUN and creatinine, fluid management. 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 Apparently, patient came to the hospital on the 10th w ith syncopal attack. The patient had history of embolic CVA. The patient had dizziness. Upon admis matias on the , the patient had CT with contrast. On arrival to the hospital, his creatinine was 2. 3, gradually creatinine trended down to 1.9. The patient denied taking any nonsteroidal. No other c hange in his medication. The patient found to have bacteremia, started on antibiotic. MILTON was done, no vegetation. Past Medical History: Include, 1.Aortic valve replacement back in September 2021. 2.Hypertension since 1969. 3.Diabetes, complicated with neuropathy, no retinopathy. 4.Rheumatoid arthritis. 5.Psoriasis. 6.Chronic kidney disease, normal-sized kidney, proteinuric secondary to diabetes nephropathy, cardio renal and hypertension, nephrosclerosis, baseline creatinine 1.7, GFR 40 as of March 2023. 7.CVA, embolic back in 2022. Allergies: NO KNOWN DRUGS ALLERGY. Past Surgical History: Include, 1.Bilateral knee replacement. 2.Cholecystectomy. 3.Hand surgery. 4.TAVR. Family History: Positive for hypertension, CAD, and cancer. Social History: Denied smoking. Denied drinking. Denied drugs abuse. Medications: Home medications include allopurinol, amlodipine, gabapentin, hydralazine, omeprazole, rosuvastatin, glipizide, baclofen, calcium carbonate, omega-3, vitamin D, Bumex 1 mg b.i.d., multivit dugan, amoxicillin, losartan, and metolazone. Review of Systems: Head and Neck: No red eye. No ear pain. Gastrointestinal: No nausea. No vomiting. Genitourinary: No polyuria. No dysuria. No hematuria. Gynecologic: Not applicable. Respiratory: No shortness of breath. Cardiovascular: Has syncopal episode. Musculoskeletal: Leg pain. Neurologic: Has syncopal episode. Physical Examination: Vital Signs: When I saw the patient, patient lying in bed comfortable. Blood pressure of 121/60, pu lse of 69, afebrile, the patient had urine output, voiding 7 times. Chest: Clear to auscultation. Heart: S1 and S2 regular. Abdomen: Soft, nontender. Extremities: +1 edema. Dressing on the left leg. Laboratory Data: The patient had CT angio on May 05. Chest x-ray, no significant congestion. So dium 137, potassium 3.7, bicarb 32, BUN 32, creatinine 1.9, calcium 8.8, and magnesium 2.2. Upon adm ission to the hospital, creatinine 2.3 and GFR of 28. Iron saturation 9.9. Ferritin 116, WBC 11, an d hemoglobin 7.8. Current Medications: The patient on include rifampin, vancomycin, Plavix, carvedilol, atorvastatin, nitroglycerin, trazodone, Bumex 2 mg b.i.d., pantoprazole, and KCl. Assessment And Plan: 1.Acute kidney injury secondary to contrast-induced nephropathy, toxic acute tubular necrosis second pedro to infection. On the recovery, getting closer to his baseline. I agree with current diuresis do se. Continue Bumex. We will add metolazone every other day, 2.5 mg and we will monitor the patient closely. 2.Hypertension, controlled, optimal. We will utilize blood pressure to establish better volume cont rol for the patient. Continue current treatment. 3.Iron-deficiency anemia, anemia of chronic kidney disease. I am going to be hesitant given the hayley teremia to add any IV iron for the time being. We will give the patient a single dose of GATO and we will follow up. 4.Bacteremia. Follow up with primary. Continue current antibiotic, dose appropriate. 5.Anasarca secondary to cardiorenal. We will continue diuresis as above. 6.Hyponatremia, dilutional. We will optimize diuresis. 7.Diabetes as by primary. Thank you, Dr. Padron, for allowing us to participate in the care of your patient. JULIÁN/SERGIO Voice ID: [id number] Report ID: [id number]
[2023-05-11] MEDS: POTASSIUM CL SA 10 MEQ TAB PO ONE (16:22)
[2023-05-11] MEDS: LORAZEPAM 0.5 MG TABLET PO ONE (16:22)
[2023-05-11] MEDS: AMPICILLIN SODIUM 2 GM in NA CHLORIDE 0.9% 100 ML IVPB SCH (16:23)
[2023-05-11] MEDS ORDERED: VANCOMYCIN 1.75 GM in NA CHLORIDE 0.9% 500 ML IVPB SCH (18:00)
[2023-05-11] MEDS: CEFTRIAXONE 2,000 MG in NA CHLORIDE 0.9% 100 ML IV SCH (20:52)
--- NOTE | 2023-05-12 06:55 | TEE ---
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 NORMAL FUNCTIONING BIOPROSTHETIC AORTIC VALVE. 2. MILD MITRAL REGURGITATION, MILD TRICUSPID REGURGITATION 3. NO VEGETATION SEEN TECHNOLOGIST: RHONA VILLELA
[2023-05-12 07:43] LABS: Absolute Basophils 0.2 K/uL (0-0.5); Absolute Eosinophils 0.4 K/uL (0-0.5); Absolute Lymphocytes (CBC) 0.9 K/uL (0.7-4.9); Absolute Monocytes 0.3 K/uL (0.1-1.3); Absolute Neutrophil 10.2 K/uL (1.8-8.0); Basophils % 1.4 % (0-1.3); Hematocrit 24.6 % (39.6-49.0); Hemoglobin 8.1 g/dL (13.6-17.9); Lymphocytes % 7.8 % (15.3-44.8); MCHC 32.8 g/dL (32.0-36.0); MCV 82.4 fL (80-100); MPV 8.9 fL (7.6-11.3); Monocytes % 2.6 % (3.3-12.3); Neutrophils % 85.2 % (41.7-73.7); Platelets 208 thou/uL (152-406); RBC Red Blood Cell Count 2.98 M/uL (4.33-5.43); Red Cell Distribution Width 18.1 % (12.1-15.2)
[2023-05-12 08:16] LABS: Albumin 2.7 g/dL (3.4-5.0); Albumin/Globulin Ratio 0.5 (1.1-1.8); Anion Gap 8.7 mEq/L (5.0-15.0); Bilirubin Total 0.5 mg/dL (0.2-1.0); Globulin 5.2 g/dL (2.3-3.5); Magnesium 2.2 mg/dL (1.6-2.4); Potassium 3.7 mEq/L (3.5-5.1); Protein, Total 7.9 g/dL (6.4-8.2)
[2023-05-12 08:48] LABS: Band Neutrophils 2 % (0-1); Blood Morphology Comment NOT SEEN (NOT SEEN); Differential Total Cells Count 100; Eosinophils 7 % (0-3); Lymphocytes 3 % (15-42); Metamyelocytes 3 % (0-0); Monocytes 3 % (0-10); Platelet Estimate ADEQ; Segmented Neutrophils 82 % (40-80)
--- NOTE | 2023-05-12 09:20 | P.PN ---
Date of Service: 05/12/23 Subjective: no new / worsening problems tolerated wound care yesterday, wound doesn't look worse per patient discharge pending blood cultures without growth afebrile ROS: 10 point ROS as noted above, otherwise negative Physical Exam: GEN: Alert, oriented, NAD HEENT: Normal conjunctiva, sclera anicteric, CV: Regular rate and rhythm, 1+ bilateral lower extremity edema Pulm: Nonlabored respirations on room air, clear bilaterally ABD: soft, nontender, nondistended Neuro: Normal speech, normal affect Integumentary: venous stasis ulcer LLE Problem List: Enterococcus Faecalis bacteremia hx of cryptogenic (enterococcus) bacteremia (02/17, 04/21) h/o Severe now s/p TAVR (09/2021) hx of carotid artery stenosis (s/p Right ICA - 03/20/23, Left ICA 12/11/22) NSTEMI Acute on chronic diastolic CHF TORRES on CKD3 moderate-severe iron deficiency anemia; chronic venous stasis ulcer LLE Chronic venous insufficiency IDDM2 with neuropathy Hypertension hx of Obstructive sleep apnea hx of Gout hx of psoriatic arthritis hx of bilateral knee prosthesis hx of perioperative atrial fibrillation Enterococcus Faecalis bacteremia hx of cryptogenic (enterococcus) bacteremia (02/17, 04/21) hx of bilateral knee prosthesis / aortic valve prosthesis Patient has hx of cryptogenic bacteremia - recurrent Enterococcus. At least 2 prior episodes. (January 2022 & March 2022) reportedly had multiple tests done at [facility] ~1.5 yrs ago, and never found source states he was dc'd with 1 week of additional IV antibiotics, then 3 weeks later got worse, and had to do 6 weeks of IV ampicillin / rocephin (completed 05/23/22). once completed the 6 weeks of IV, he was transitioned to chronic / prophylactic amoxicillin blood cx (05/06): Enterococcus Faecalis in 2/2 bottles with similar sensitivities to prior episodes repeat blood cx (05/08): GPC - non beta hemolytic strep growing in 2/2 bottles repeat blood cx (05/10): pending vancomycin and rifampin (05/07-05/10) transitioned to IV ampicillin / rocephin (05/10-) given culture sensitivities will need 6 weeks of IV antibiotics afebrile, +leukocytosis 11 -> 12 (05/11) MILTON (05/10) without vegetation and normal functioning valve ID is following awaiting repeat blood cultures to be negative prior to obtaining PICC NSTEMI CAD s/p PCI x2 (Right ICA 03/20/23, Left ICA 12/11/22) Severe s/p TAVR (09/2021) hx of perioperative atrial fibrillation troponins mildly elevated but trended flat unable to get stress test done here secondary to weight / size; advised to f/u outpatient for stress test Cardiology is following continue aspirin, statin. brilinta swjtched to plavix 05/09 after discussion with pharmacy and cardio - interaction of rifampin and brillinta Previously on eliquis but was discontinued per cardiology ~11/2022 after PCI / starting brilinta. TTE (05/06): 67% EF, diastolic dysfunction, normal functioning bioprosthetic aortic valve, mean gradient 17mmHG, moderate pulm htn last known MILTON from 04/11/22: no e/o IE, normal BiV function, TAVR valve well seated with normal function. 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 Iron: 20. Tsat%: 9.9% Daily CBC venous stasis ulcer LLE Chronic venous insufficiency Continue wound care with vashe, apply xeroform and cover with gauze then kerlix. Then ANGELA wrap. IDDM2 with neuropathy Accuchecks, SSI confirm home regimen resume home gabapentin and baclofen Hypertension continue home antihypertensives as appropriate Obstructive sleep apnea uses CPAP at night Gout Psoriatic arthritis one reported episode of podagra decades ago, no recent flare ups. overall gout controlled takes otezla at home Code: Full Dispo: Home with home health, several days Pending blood cultures without growth will need PICC and care home antibiotics
[2023-05-12] MEDS: GABAPENTIN 300 MG CAP PO SCH (10:27)
[2023-05-12] MEDS: CODEINE 30MG/APAP 300MG TAB PO PRN (14:15)
[2023-05-12] MEDS: POTASSIUM CL SA 10 MEQ TAB PO ONE (16:19)
--- NOTE | 2023-05-12 17:45 | EKG ---
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: MOHIT MEASUREMENT RESULTS: Intervals: Rate: 62 IL: QRSD: 118 QT: 468 QTc: 475 [place]: P: 52 IL: QRS: 4 T: 253 INTERPRETIVE STATEMENTS: Sinus rhythm with AV dissociation and Junctional rhythm with sinus/atrial capture with fusion complexes Nonspecific intraventricular conduction delay Nonspecific T wave abnormality Prolonged QT Abnormal ECG Compared to ECG 05/06/2023 22:49:49 Junctional rhythm now present Fusion complex(es) now present Intraventricular conduction delay now present T-wave abnormality now present Prolonged QT interval now present Accelerated junctional rhythm no longer present Left anterior fascicular block no longer present Electronically Signed On 05-12-23 17:29:37 CDT by Nawaf Dotson
[2023-05-12] MEDS: BACLOFEN 10 MG TAB PO SCH (21:38)
--- NOTE | 2023-05-13 02:31 | PN ---
Chief Complaint: Elevated BUN and creatinine. Subjective: The patient is a 78-year-old man with past medical history significant for aortic valve replacement in September 2021, hypertension, hyperlipidemia, diabetes mellitus 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nephropathy and there is no evidence of diabetic retinopathy. The patient also has history of rheumatoid arthri tis and he is taking sulfasalazine; chronic kidney disease stage IIIB secondary to diabetic nephropat hy; hypertension; nephrosclerosis; cardiorenal syndrome. Renal ultrasound previously done in 2023, shows normal-sized kidneys and he has history of gout and gastric ulcer. He denies complaint s today, denies PND, orthopnea. Objective: Lungs: Clear to auscultation bilaterally. Heart: S1, S2. Abdomen: Soft. Extremities: 1+ edema. Impression And Plan: 1.Acute on chronic kidney injury secondary to ATN and contrast-induced nephropathy. Monitor renal f unction. The patient will continue Bumex for volume control. 2.Metolazone was added every day for cardiorenal syndrome. 3.Hypertension, blood pressure control. 4.Iron deficiency anemia. Continue iron and consider GATO. 5.Bacteremia. Continue current antibiotics. 6.Cardiorenal syndrome, congestive heart failure. Anasarca. Continue low-sodium diet and diuretic. 7.Hyponatremia, dilutional. Resume diuretic. EB/MODL Voice ID: [id number] Report ID: [id number]
[2023-05-13 04:28] LABS: Eosinophils % 3.8 % (0-4.4); Hematocrit 25.9 % (39.6-49.0); Hemoglobin 8.4 g/dL (13.6-17.9); Lymphocytes % 10.7 % (15.3-44.8); MCH 26.9 pg (27.0-35.0); MCHC 32.5 g/dL (32.0-36.0); MCV 82.9 fL (80-100); MPV 9.2 fL (7.6-11.3); Neutrophils % 81.5 % (41.7-73.7); Platelets 228 thou/uL (152-406); RBC Red Blood Cell Count 3.12 M/uL (4.33-5.43); Red Cell Distribution Width 17.8 % (12.1-15.2)
[2023-05-13 04:29] LABS: Absolute Basophils 0.1 K/uL (0-0.5); Absolute Eosinophils 0.5 K/uL (0-0.5); Absolute Lymphocytes (CBC) 1.4 K/uL (0.7-4.9); Absolute Monocytes 0.4 K/uL (0.1-1.3); Absolute Neutrophil 10.3 K/uL (1.8-8.0); Nucleated Red Blood Cells % 0.1 % (0-0)
[2023-05-13 04:47] LABS: Anion Gap 7.9 mEq/L (5.0-15.0); C-Reactive Protein 57.9 mg/L (<3.00); Magnesium 2.3 mg/dL (1.6-2.4); Potassium 3.9 mEq/L (3.5-5.1)
[2023-05-13] MEDS: POTASSIUM CL SA 10 MEQ TAB PO ONE (05:24)
--- NOTE | 2023-05-13 07:26 | P.PN ---
Date of Service: 05/13/23 Subjective: reports some neck pain +headache today. States occasional flare ups due to degenerative disc disease that produce similar pain denies prior history of hemorrhoids. Reports last colonoscopy ~2017. Denies any rectal bleeding. denies straining with BM otherwise no new / worsening problems afebrile ROS: 10 point ROS as noted above, otherwise negative Physical Exam: GEN: Alert, oriented, NAD HEENT: Normal conjunctiva, sclera anicteric, CV: Regular rate and rhythm, 1+ bilateral lower extremity edema Pulm: Nonlabored respirations on room air, clear bilaterally ABD: soft, nontender, nondistended Neuro: Normal speech, normal affect Integumentary: venous stasis ulcer LLE Problem List: Enterococcus Faecalis bacteremia hx of cryptogenic (enterococcus) bacteremia (02/17, 04/21) NSTEMI 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 At least 2 prior episodes. (January 2022 & March 2022) reportedly had multiple tests done at [facility] ~1.5 yrs ago, and never found source, completed 6wks IV abx previously blood cx (05/06): Enterococcus Faecalis in 2/2 bottles with similar sensitivities to prior episodes repeat blood cx (05/08): Enterococcus Faecalis repeat blood cx (05/10): NGTD vancomycin and rifampin (05/07-05/10) transitioned to IV ampicillin / rocephin (05/10-) given culture sensitivities will need 6 weeks of IV antibiotics afebrile, +leukocytosis 12 -> 12.6, CRP 57.9 (05/12) MILTON (05/10) without vegetation and normal functioning valve denies prior history of hemorrhoids. Reports last colonoscopy ~2017. Denies any rectal bleeding. denies straining with BM ID is following awaiting repeat blood cultures to be negative prior to obtaining PICC trend crp NSTEMI hx of Severe now s/p TAVR (09/2021) hx of carotid artery stenosis (s/p Right ICA - 03/20/23, Left ICA 12/11/22) troponins mildly elevated but trended flat unable to get stress test done here secondary to weight / size; advised to f/u outpatient for stress test Cardiology is following - no further inpatient workup continue aspirin, statin. brilinta switched to plavix 05/09 after discussion with pharmacy and cardio - interaction of rifampin and brillinta Previously on eliquis but was discontinued per cardiology ~11/2022 after PCI / starting brilinta. TTE (05/06): 67% EF, diastolic dysfunction, normal functioning bioprosthetic aortic valve, mean gradient 17mmHG, moderate pulm htn last known MILTON from 04/11/22: no e/o IE, normal BiV function, TAVR valve well seated with normal function. 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 Started 05/10 per nephro baseline creatinine ~1.5-1.8 per [facility] records moderate-severe iron deficiency anemia, chronic iron studies this hospitalization consistent with iron deficiency anemia. Iron: 20. Tsat%: 9.9% given retacrit x1 (05/10) Daily CBC takes PO iron at home; initially held secondary to bacteremia venous stasis ulcer LLE / Chronic venous insufficiency Continue wound care with vashe, apply xeroform and cover with gauze then kerlix. Then ANGELA wrap. IDDM2 with neuropathy Accuchecks, SSI confirm home regimen degenerative disc disease continue home gabapentin and baclofen Hypertension continue home antihypertensives as appropriate Obstructive sleep apnea uses CPAP at night hx of Gout hx of psoriatic arthritis one reported episode of podagra decades ago, no recent flare ups. overall gout controlled takes otezla at home Code: Full Dispo: Home with home health, ~05/14 vs 05/15 will need PICC and detention antibiotics setup - waiting on negative repeat blood cultures
[2023-05-13] MEDS: LORazepam 2 MG/ML VIAL IV ONE (08:08)
[2023-05-13] MEDS: METOLAZONE 5 MG TABLET PO ONE (17:33)
--- NOTE | 2023-05-13 20:45 | P.PN ---
Subjective Date of Service: 05/13/23 Chief Complaint: NSTEMI, dizziness. Subjective: No new changes Physical Examination - Vital Signs Temperature: 97.2 F Blood Pressure: 112/56 Pulse: 64 Respirations: 18 Pulse Ox (%): 99 - Physical Exam General: Other (chronically ill-appearing) HEENT: Atraumatic, Normocephalic Neck: Supple Respiratory: Other (symmetric chest expansion) Cardiovascular: No rubs, No murmurs Gastrointestinal: Soft and benign, No rebound Musculoskeletal: No clubbing Integumentary: No warmth Neurological: Normal tone Urinary: Other (No bladder distention) External genitalia: Deferred Rectal: Deferred Assessment And Plan - Plan # Acute on chronic kidney injury secondary to ATN and contrast-induced nephropathy SCr plateaued at 2.0-2.1 Cont bumex Show Low by mouth fluid intake # CKD3 presumed to be 2/2 Htn/DM Baseline SCr 1.5-1.8 (GFR 39-49 ml/min) as of July 2022 Monitor renal panel # Htn Cont current med regimen # Acute respi failure, CHF Hx of chronic diastolic HF, s/p TAVR Low Na diet < 2g/d Do not limit po fluid intake unless he develops hypoNa < 130 Cont bumex bid same dose Per other services # Iron deficiency anemia Continue iron and consider GATO # DM2 Mngt per primary team # Hx of bacteremia, unknown source, on chronic antibiotics Per other services
[2023-05-13] MEDS: CODEINE 30MG/APAP 300MG TAB PO PRN (21:25)
[2023-05-14 04:36] LABS: Absolute Basophils 0.2 K/uL (0-0.5); Absolute Eosinophils 0.6 K/uL (0-0.5); Absolute Monocytes 0.3 K/uL (0.1-1.3); Absolute Neutrophil 9.1 K/uL (1.8-8.0); Basophils % 1.5 % (0-1.3); Eosinophils % 5.1 % (0-4.4); Hematocrit 26.6 % (39.6-49.0); Hemoglobin 8.6 g/dL (13.6-17.9); Lymphocytes % 9.1 % (15.3-44.8); MCH 26.9 pg (27.0-35.0); MCHC 32.5 g/dL (32.0-36.0); MCV 82.8 fL (80-100); MPV 9.1 fL (7.6-11.3); Monocytes % 2.4 % (3.3-12.3); Neutrophils % 81.9 % (41.7-73.7); Nucleated Red Blood Cells % 0.3 % (0-0); Platelets 218 thou/uL (152-406); RBC Red Blood Cell Count 3.21 M/uL (4.33-5.43); Red Cell Distribution Width 18.3 % (12.1-15.2)
[2023-05-14 05:03] LABS: Anion Gap 7.8 mEq/L (5.0-15.0); Potassium 3.8 mEq/L (3.5-5.1)
--- NOTE | 2023-05-14 09:59 | P.PN ---
Date of Service: 05/14/23 Subjective: Doing okay, reports some itchyness/redness near IV site likely secondary to tape/wrap. otherwise no new / worsening problems doesn't feel anything else is worse afebrile ROS: 10 point ROS as noted above, otherwise negative Physical Exam: GEN: Alert, oriented, NAD HEENT: Normal conjunctiva, sclera anicteric, CV: Regular rate and rhythm, 1+ bilateral lower extremity edema Pulm: Nonlabored respirations on room air, clear bilaterally ABD: soft, nontender, nondistended Neuro: Normal speech, normal affect Integumentary: ~2cm superficial ulcer of left lateral of lower left extremity, no purulent drainage Problem List: Enterococcus Faecalis bacteremia hx of cryptogenic (enterococcus) bacteremia (02/17, 04/21) NSTEMI 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 At least 2 prior episodes. (January 2022 & March 2022) multiple tests done at [facility] ~1.5 yrs ago, and never found source, completed 6wks IV abx previously blood cx (05/06): Enterococcus Faecalis in 2/2 bottles with similar sensitivities to prior episodes repeat blood cx (05/08): Enterococcus Faecalis repeat blood cx (05/10): NGTD vancomycin and rifampin (05/07-05/10) transitioned to IV ampicillin / rocephin (05/10-) given culture sensitivities will need 6 weeks of IV antibiotics afebrile, leukocytosis improving, CRP improving (05/13) MILTON (05/10) without vegetation and normal functioning valve denies prior history of hemorrhoids. Reports last colonoscopy ~2017. Denies any rectal bleeding. 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 brilinta switched to plavix 05/09 after discussion with pharmacy and cardio - interaction of rifampin and brillinta Previously on eliquis but was discontinued per cardiology ~11/2022 after PCI / starting brilinta. TTE (05/06): 67% EF, diastolic dysfunction, normal functioning bioprosthetic aortic valve, mean gradient 17mmHG, moderate pulm htn last known MILTON from 04/11/22: no e/o IE, normal BiV function, TAVR valve well seated with normal function. s/p MILTON (05/10): normal functioning prosthetic aortic valve, mild MR/TR, no vegetation Acute on chronic diastolic CHF TORRES on CKD3 Recently had bumex dose lowered per his manager personnel selection TORRES deemed secondary to contrast-induced nephropathy bumex restarted at 2 mg PO BID per cardiology continue to monitor renal function nephrology consulted continue metolazone q48h. Started 05/10 per nephro baseline creatinine ~1.5[facility].8 [facility] moderate-severe iron deficiency anemia, chronic iron studies this hospitalization consistent with iron deficiency anemia. Iron: 20. Tsat%: 9.9% given retacrit x1 (05/10) Daily CBC takes PO iron at home; initially held secondary to bacteremia venous stasis ulcer LLE / Chronic venous insufficiency Continue wound care with vashe, apply xeroform and cover with gauze then kerlix. Then ANGELA wrap. IDDM2 with neuropathy Accuchecks, SSI confirm home regimen degenerative disc disease continue home gabapentin and baclofen Hypertension continue home antihypertensives as appropriate Obstructive sleep apnea uses CPAP at night hx of Gout hx of psoriatic arthritis one reported episode of podagra decades ago, no recent flare ups. overall gout controlled takes otezla at home Code: Full Dispo: Home with home health, anticipate ~05/15 vs 05/16 will need PICC and detention antibiotics setup - waiting on negative repeat blood cultures
--- NOTE | 2023-05-14 15:31 | EKG ---
Test Date: 2023-05-06 Test Time: 22:49:49 Hospital Receptionist: DOM MEASUREMENT RESULTS: Intervals: Rate: 73 [place]: QRSD: 112 QT: 428 QTc: 471 [place]: P: 65 [place]: QRS: -54 T: 50 INTERPRETIVE STATEMENTS: Sinus rhythm with AV dissociation and Accelerated Junctional rhythm Left anterior fascicular block Abnormal ECG Compared to ECG 12/05/2022 01:23:26 Accelerated junctional rhythm now present AV dissociation now present Left anterior fascicular block now present First degree AV block no longer present Left-axis deviation no longer present Left ventricular hypertrophy no longer present Electronically Signed On 05-14-23 15:30:05 CDT by Nawaf Dotson
--- NOTE | 2023-05-14 20:48 | P.PN ---
Subjective Date of Service: 05/14/23 Chief Complaint: NSTEMI, dizziness. Subjective: No new changes Physical Examination - Vital Signs Temperature: 97.2 F Blood Pressure: 120/56 Pulse: 99 Respirations: 18 Pulse Ox (%): 99 - Physical Exam General: Other (appears as his stated age) HEENT: Atraumatic, Normocephalic Neck: Supple Respiratory: Other (symmetric chest expansion) Cardiovascular: No rubs, No murmurs Gastrointestinal: Soft and benign, No rebound Musculoskeletal: No clubbing Integumentary: No warmth Neurological: Normal speech, Normal tone Urinary: Other (no bladder distention) External genitalia: Deferred Rectal: Deferred Assessment And Plan - Plan # Acute on chronic kidney injury secondary to ATN and contrast-induced nephropathy SCr plateaued at 2.1 Cont bumex [place] by mouth fluid intake at least 2L/day # CKD3 presumed to be 2/2 Htn/DM Baseline SCr 1.5-1.8 (GFR 39-49 ml/min) as of July 2022 Monitor renal panel # Htn Cont current med regimen # Acute respi failure, CHF Hx of chronic diastolic HF, s/p TAVR Low Na diet < 2g/d Do not limit po fluid intake unless he develops hypoNa < 130 meq/L Cont bumex bid same dose Per other services # Iron deficiency anemia Continue iron and consider GATO # DM2 Mngt per primary team # Hx of bacteremia, unknown source, on chronic antibiotics Per other services
[2023-05-15 06:20] LABS: Absolute Basophils 0.1 K/uL (0-0.5); Absolute Eosinophils 0.7 K/uL (0-0.5); Absolute Lymphocytes (CBC) 1.1 K/uL (0.7-4.9); Absolute Monocytes 0.5 K/uL (0.1-1.3); Absolute Neutrophil 8.5 K/uL (1.8-8.0); Basophils % 1.3 % (0-1.3); Eosinophils % 6.2 % (0-4.4); Hematocrit 26.1 % (39.6-49.0); Hemoglobin 8.6 g/dL (13.6-17.9); Lymphocytes % 9.9 % (15.3-44.8); MCH 27.5 pg (27.0-35.0); MCV 83.3 fL (80-100); MPV 9.4 fL (7.6-11.3); Monocytes % 4.5 % (3.3-12.3); Neutrophils % 78.1 % (41.7-73.7); Nucleated Red Blood Cells % 0.2 % (0-0); Platelets 216 thou/uL (152-406); RBC Red Blood Cell Count 3.13 M/uL (4.33-5.43); Red Cell Distribution Width 18.2 % (12.1-15.2)
[2023-05-15 06:31] LABS: Anion Gap 8.4 mEq/L (5.0-15.0); C-Reactive Protein 63.3 mg/L (<3.00); Magnesium 2.2 mg/dL (1.6-2.4); Potassium 3.4 mEq/L (3.5-5.1)
[2023-05-15 07:43] LABS: Band Neutrophils 2 % (0-1); Differential Total Cells Count 100; Eosinophils 8 % (0-3); Lymphocytes 17 % (15-42); Monocytes 2 % (0-10); Myelocytes 1 % (0-0); Segmented Neutrophils 69 % (40-80); White Blood Cell Scan OK (OK)
[2023-05-15 07:44] LABS: Blood Morphology Comment NOT SEEN (NOT SEEN); Platelet Estimate ADEQ
--- NOTE | 2023-05-15 09:56 | P.PN ---
Date of Service: 05/15/23 Chief Complaint: NSTEMI, dizziness. Subjective: Improving. No acute events overnight. No new or worsening complaints. Physical Examination Temp Pulse Resp BP Pulse Ox 97.2 F 99 H 18 120/56 L 99 05/15/23 09:13 05/15/23 09:13 05/15/23 09:13 05/15/23 09:13 05/15/23 09:13 General: Alert, In no apparent distress, Oriented x3 HEENT: Atraumatic, Normocephalic Respiratory: Clear to auscultation bilaterally, Normal air movement. On room air. Cardiovascular: Regular rate/rhythm. BLE edema. Gastrointestinal: Normal bowel sounds, Soft and benign Integumentary: Venous stasis ulcer LLE, dressing clean dry and intact. Neurological: Normal speech, Normal affect Laboratory Data - Reviewed Microbiology Data - Reviewed Imagings Data: - Reviewed Medications List: Reviewed Assessment and Plan Problem List NSTEMI Gram-Positive Bacteremia Diabetes Mellitus type II Bilateral knee prosthesis Prosthetic aortic valve Hypertension Chronic Kidney Disease stage III Coronary Artery Disease E. faecalis Bacteremia - blood cultures 05/06: Enterococcus faecalis - penicillin-susceptible and synergy with gentamycin positive. - Repeat blood cultures: - 05/08: Enterococcus faecalis - 05/10: no growth to date - TTE 05/06: no reported vegetation - MILTON 05/10: No vegetation seen - History of E.faecalis bacteremia last year 04/08/22 patient reports [facility] of source/ cryptogenic bacteremia - completed 6 week course of IV antibiotics and then started on suppressive Amoxicillin PO. - Vancomycin and Rifampin (05/07-05/10) -> switched to Ampicillin and Ceftriaxone following culture results Leukocytosis improving. Afebrile. History: TAVR 09/2021 E. faecalis bacteremia 01/2022, 02/2022, 03/2022 - Completed 6 weeks IV Ceftriaxone and Ampicillin - Has been on suppressive Amoxicillin PO Underwent Right carotid stent placement 03/20/2023 Now with E. faecalis bacteremia 05/09/2023 Recommendations - E.faecalis bacteremia: concern for endocarditis, MILTON 05/10 without vegetation seen. However given that the patient has a history of E.faecalis bacteremia, prosthetic valve, bilateral knee prosthesis, and bilateral carotid stents, recommend continuing with Ceftriaxone and Ampicillin for at least 4 weeks. - Continue Ampicillin and Rocephin IV for at least 4 weeks. - Negative cultures obtained 05/10. PICC line placement pending. - venous stasis ulcer LLE: Rinse with vashe, apply xeroform and cover with gauze then kerlix. Then ANGELA wrap. - Monitor CBC, BMP - Renally dose medications. Pharmacy consulted. - Follow up with cardiology as outpatient Case discussed with Manan Trujillo
--- NOTE | 2023-05-15 10:16 | P.PN ---
Date of Service: 05/15/23 Subjective: Doing okay Denies any new / worsening problems no diarrhea. denies trouble urinating. 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 At least 2 prior episodes. (January 2022 & March 2022) multiple tests done at [facility] ~1.5 yrs ago, and never found source, completed 6wks IV abx previously blood cx (05/06): Enterococcus Faecalis in 2/2 bottles with similar sensitivities to prior episodes repeat blood cx (05/08): Enterococcus Faecalis repeat blood cx (05/10): NGTD vancomycin and rifampin (05/07-05/10) transitioned to IV ampicillin / rocephin (05/10-) given culture sensitivities will need at least 4 weeks of IV antibiotics from first negative culture (End date: ~06/08/23) afebrile, leukocytosis resolved MILTON (05/10) without vegetation and normal functioning valve denies prior history of hemorrhoids. Reports last colonoscopy ~2018. Denies any rectal bleeding. 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 brilinta switched to plavix 05/09 after discussion with pharmacy and cardio - interaction of rifampin and brillinta Previously on eliquis but was discontinued per cardiology ~11/2022 after PCI / starting brilinta. TTE (05/06): 67% EF, diastolic dysfunction, normal functioning bioprosthetic aortic valve, mean gradient 17mmHG, moderate pulm htn last known MILTON from 04/11/22: no e/o IE, normal BiV function, TAVR valve well seated with normal function. s/p MILTON (05/10): normal functioning prosthetic aortic valve, mild MR/TR, no vegetation Acute on chronic diastolic CHF TORRES on CKD3 Recently had bumex dose lowered per his polysomnography technician TORRES deemed secondary to contrast-induced nephropathy bumex restarted at 2 mg PO BID per cardiology continue to monitor renal function nephrology consulted continue metolazone q48h. Started 05/10 per nephro baseline creatinine ~1.5-1.[address] [facility] records moderate-severe iron deficiency anemia, chronic iron studies this hospitalization consistent with iron deficiency anemia. Iron: 20. Tsat%: 9.9% given retacrit x1 (05/10) Daily CBC takes PO iron at home; initially held secondary to bacteremia venous stasis ulcer LLE / Chronic venous insufficiency Continue wound care with vashe, apply xeroform and cover with gauze then kerlix. Then ANGELA wrap. IDDM2 with neuropathy Accuchecks, SSI confirm home regimen degenerative disc disease continue home gabapentin and baclofen Hypertension continue home antihypertensives as appropriate Obstructive sleep apnea uses CPAP at night hx of Gout hx of psoriatic arthritis one reported episode of podagra decades ago, no recent flare ups. overall gout controlled takes otezla at home Code: Full Dispo: Home with home health, anticipate ~05/15 vs 05/16 PICC line ordered needs snf antibiotics setup
[2023-05-15] MEDS: Mupirocin NASAL 2 APPL/1 GM TUBE NAS SCH (11:00)
--- NOTE | 2023-05-15 17:52 | RAD REPORT ---
EXAM DESCRIPTION: RADChest Single View05/15/2023 5:13 pm CLINICAL HISTORY: PICC COMPARISON: Chest Single View dated 05/06/2023; Chest Single View dated 12/05/2022; Chest Single View d ated 11/01/2022; Chest Single View dated 10/27/2022 TECHNIQUE: Portable AP view of the chest. FINDINGS: Right arm PICC in place with catheter tip projecting over the proximal to mid SVC. The carlos gs are clear. No pneumothorax or effusion. The cardiomediastinal contours are unremarkable. IMPRESSION: No acute cardiopulmonary process. Satisfactory positioning of right arm PICC.
[2023-05-15] MEDS: POTASSIUM 25 MEQ EFFERV TAB PO ONE (17:59)
--- NOTE | 2023-05-16 03:44 | PN ---
Date of Progress Note: 05/15/2023 Chief Complaint: Coronary artery disease, [id number] myocardial infarction, dizziness, fluid o verload, acute kidney injury on chronic kidney disease stage 3. Subjective: The patient has multiple medical problems dizziness, short of breath __ ST-elevation myocardial infarction. He has fluid overload and decompensated congestive heart fail ure. Review of Systems: Denies chest pain, palpitation. Leg edema has improved somewhat. Physical Examination: Vital Signs: Blood pressure 120/56, heart rate 99, respiratory rate 18, SpO2 99%. Lungs: Equal chest expansion. No crackles. No rhonchi. Heart: S1, S2. No pericardial friction rub. Abdomen: Soft, benign, nontender. Extremities: Edema in both legs. Impression And Plan: 1.Acute on chronic kidney injury secondary to acute tubular necrosis and contrast-induced nephropath y. Serum creatinine is plateauing at 2.1. Continue Bumex for volume control and for congestive hear t failure, and respiratory failure with hypoxemia. 2.Chronic kidney disease secondary to diabetes mellitus, hypertension. Baseline creatinine level wa s ranging from 1.5 to 1.8. GFR from 39 to 49 as of July 2022. 3.Hypertension. Continue current medication regimen. 4.Acute respiratory failure in setting of congestive heart failure. 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 Aortic stenosis, status post transcatheter aortic valve repl acement. Continue low-sodium diet. Continue adequate hydration by mouth. Continue Bumex twice a da y with same dose. To monitor renal function and fluid balance. 5.Iron-deficiency anemia. Continue iron and consider GATO. 6.Diabetes mellitus, per Primary Team. Continue insulin. 7.History of bacteremia of unknown source, on chronic antibiotic. EB/MODL Voice ID: [id number] Report ID: [id number]
[2023-05-16 04:23] VITALS: O2SAT 98
[2023-05-16 06:55] LABS: Hematocrit 24.5 % (39.6-49.0); Hemoglobin 8.2 g/dL (13.6-17.9); MCH 27.7 pg (27.0-35.0); MCHC 33.6 g/dL (32.0-36.0); MCV 82.4 fL (80-100); MPV 9.6 fL (7.6-11.3); Platelets 240 thou/uL (152-406); RBC Red Blood Cell Count 2.97 M/uL (4.33-5.43); Red Cell Distribution Width 17.9 % (12.1-15.2)
[2023-05-16 07:12] LABS: Anion Gap 7.6 mEq/L (5.0-15.0); C-Reactive Protein 55.2 mg/L (<3.00); Potassium 3.6 mEq/L (3.5-5.1)
--- NOTE | 2023-05-16 09:37 | P.PN ---
Date of Service: 05/16/23 Chief Complaint: NSTEMI, dizziness. Subjective: Patient sitting in chair. In no apparent distress. No acute events overnight. He denies any new or worsening complaints at this time. Patient wanting to know when he will be discharged home. Plan of care discussed with patient and Dr. Baker during rounds. Physical Examination Temp Pulse Resp BP Pulse Ox 97.5 F 55 16 165/68 H 98 05/16/23 04:00 05/16/23 09:07 05/16/23 04:00 05/16/23 09:07 05/16/23 04:00 General: Alert, In no apparent distress, Oriented x3 HEENT: Atraumatic, Normocephalic Respiratory: Clear to auscultation bilaterally, Normal air movement. On room air. Cardiovascular: Regular rate/rhythm. BLE edema. Gastrointestinal: Normal bowel sounds, Soft and benign Integumentary: Venous stasis ulcer LLE, dressing clean dry and intact. Neurological: Normal speech, Normal affect Laboratory Data - Reviewed Microbiology Data - Reviewed Imagings Data: - Reviewed Medications List: Reviewed Assessment and Plan Problem List NSTEMI Gram-Positive Bacteremia Diabetes Mellitus type II Bilateral knee prosthesis Prosthetic aortic valve Hypertension Chronic Kidney Disease stage III Coronary Artery Disease E. faecalis Bacteremia - blood cultures 05/06: Enterococcus faecalis - penicillin-susceptible and synergy with gentamycin positive. - Repeat blood cultures: - 05/08: Enterococcus faecalis - 05/10: no growth to date - TTE 05/06: no reported vegetation - MILTON 05/10: No vegetation seen - History of E.faecalis bacteremia last year 04/08/22 patient reports [facility] without identification of source/ cryptogenic bacteremia - completed 6 week course of IV antibiotics and then started on suppressive Amoxicillin PO. - Vancomycin and Rifampin (05/07-05/10) -> switched to Ampicillin and Ceftriaxone following culture results Leukocytosis improving. Afebrile. History: TAVR 09/2021 E. faecalis bacteremia 01/2022, 02/2022, 03/2022 - Completed 6 weeks IV Ceftriaxone and Ampicillin - Has been on suppressive Amoxicillin PO Underwent Right carotid stent placement 03/20/2023 Now with E. faecalis bacteremia 05/09/2023 Recommendations - E.faecalis bacteremia: concern for endocarditis, MILTON 05/10 without vegetation seen. However given that the patient has a history of E.faecalis bacteremia, prosthetic valve, bilateral knee prosthesis, and bilateral carotid stents, recommend continuing with Ceftriaxone and Ampicillin for at least 4 weeks. - Continue Ampicillin and Rocephin IV for at least 4 weeks. - Negative cultures obtained 05/10. - PICC line placed 05/14 - venous stasis ulcer LLE: Rinse with vashe, apply xeroform and cover with gauze then kerlix. Then ANGELA wrap. - Monitor CBC, BMP - Renally dose medications. - Follow up with cardiology as outpatient Case discussed with Manan Trujillo
--- NOTE | 2023-05-16 12:18 | P.PN ---
Subjective Date of Service: 05/16/23 Chief Complaint: NSTEMI, dizziness. Subjective Pt with HX of CKD , admittedfor SOB and Chest pain, cr stable, edema improving Physical exam General: Awake, NAD HEENT: Atraumatic, Normocephalic Neck: Supple, no elevated JVD Respiratory: CTAB Cardiovascular: No rubs, No murmurs Gastrointestinal: Soft and benign, Non-distended Musculoskeletal: No clubbing EXt : +2 edema, lt leg dressed # Acute on chronic kidney injury secondary to ATN and contrast-induced nephropathy SCr plateaued at 2.1 Cont bumex [place] by mouth fluid intake at least 2L/day # CKD3 presumed to be 2/2 Htn/DM Baseline SCr 1.5-1.8 (GFR 39-49 ml/min) as of July 2022 Monitor renal panel # Htn Cont current med regimen # Acute respi failure, CHF Hx of chronic diastolic HF, s/p TAVR Cont bumex bid same dose Per other services # Iron deficiency anemia Continue iron # DM2 Mngt per primary team # Hx of bacteremia, unknown source, on chronic antibiotics Cont Abx Can bed discharged from nephrology point of view Physical Examination - Vital Signs Temperature: 97.4 F Blood Pressure: 165/68 Pulse: 55 Respirations: 18 Pulse Ox (%): 100
--- NOTE | 2023-05-16 15:03 | P.DS ---
Admission Date: 05/08/23 Discharge Date: 05/16/23 Disposition: DC HOME/HOME HEALTH CARE Discharge Condition: FAIR Reason for Admission: NSTEMI, dizziness. 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[employer] insulin use: with care home use Diabetes mellitus complication status: without complication Qualified Code(s): E11.9 - Type 2 diabetes mellitus without complications; Z79.4 - intermediate designer (current) use of insulin (5) Gram-positive cocci bacteremia Current Visit: Yes Status: Acute (6) 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 Patient reported has been feeling slightly dizzy for couple of days but no overt episode of fever, chills, rigor, nausea, vomiting. He also described a chronic cough for which he is on suppressive therapy with amoxacillin for some cryptic bloodstream infection diagnosed in the last year. In the ED he had lab work that revealed elevated troponin of over 200 so he was deemed to be having NSTEMI after review of his EKG and he was admitted for inpatient care. 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 He has been on aspirin and Brilinta. Hospital Course: Patient was admitted to the the medical floor. Troponin was slightly elevated but trended flat. Patient was seen and evaluated by cardiology Dr. Salas who recommended stress test. Patient weight noted to be above limits for nuclear stress test during the hospital. Carotid duplex done showed patent carotid artery stent. Echocardiogram showed normal functioning aortic valve. Cardiology evaluated patient and recommended follow-up with him as an outpatient to continue evaluation with a stress test. Patient was asymptomatic during the hospital stay. Vitals have been stable he is ambulatory and tolerating diet. 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 At least 2 prior episodes. (January 2022 & March 2022) multiple tests done at [facility] ~1.5 yrs ago, and never found source, completed 6wks IV abx previously blood cx (05/06): Enterococcus Faecalis in 2/2 bottles with similar sensitivities to prior episodes repeat blood cx (05/08): Enterococcus Faecalis repeat blood cx (05/10): NGTD Initially treated with vancomycin and rifampin (05/07-05/10) transitioned to IV ampicillin / rocephin (05/10-) given culture sensitivities Infectious disease evaluated patient and managed antibiotics. Patient will need at least 4 weeks of IV antibiotics from first negative culture (End date: ~06/08/23) according to infectious disease Dr. Baker. afebrile, leukocytosis resolved MILTON (05/10) without vegetation and normal functioning valve PICC line for usp IV antibiotics placed. Antibiotics and lab monitoring during outpatient antibiotic therapy recommended. Dr. Baker has offered to manage his antibiotics as outpatient outpatient abx has been set up, patient is deemed stable for discharge. 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 brilinta switched to plavix 05/09 after discussion with pharmacy and cardio - interaction of rifampin and brillinta Previously on eliquis but was discontinued per cardiology ~11/2022 after PCI / starting brilinta. TTE (05/06): 67% EF, diastolic dysfunction, normal functioning bioprosthetic aortic valve, mean gradient 17mmHG, moderate pulm htn last known MILTON from 04/11/22: no e/o IE, normal BiV function, TAVR valve well seated with normal function. s/p MILTON (05/10): normal functioning prosthetic aortic valve, mild MR/TR, no vegetation Acute on chronic diastolic CHF TORRES on CKD3 Recently had bumex dose lowered per his sample selector TORRES deemed secondary to contrast-induced nephropathy nephrology consulted Continue metolazone. Continue with Bumex. baseline creatinine ~1.5-1.8 per [facility] records moderate-severe iron deficiency anemia, chronic iron studies this hospitalization consistent with iron deficiency anemia. Iron: 20. Tsat%: 9.9% given retacrit x1 (05/10) Daily CBC takes PO iron at home; initially held secondary to bacteremia venous stasis ulcer LLE / Chronic venous insufficiency Wound care done with vashe, apply xeroform and cover with gauze then kerlix. Then ANGELA wrap. IDDM2 with neuropathy Accuchecks, SSI Degenerative disc disease continued home gabapentin and baclofen Hypertension continued home antihypertensives. Obstructive sleep apnea uses CPAP at night hx of Gout hx of psoriatic arthritis takes otezla at home Vital Signs/Physical Exam: Temp Pulse Resp BP Pulse Ox 97.4 F 55 18 165/68 H 100 05/16/23 12:18 05/16/23 12:18 05/16/23 12:18 05/16/23 12:18 05/16/23 12:18 General: Alert, In no apparent distress, Oriented x3, Obese Neck: Supple, JVD not distended Respiratory: Clear to auscultation bilaterally, Normal air movement Cardiovascular: Regular rate/rhythm, Normal S1 S2, Edema (Bilateral lower extremities) Gastrointestinal: Normal bowel sounds, Hypoactive, No tenderness Integumentary: No cyanosis Neurological: Normal strength at 5/5 x4 extr Laboratory Data at Discharge: WBC 10.70 thou/uL (4.3-10.9) 05/16/23 05:46 Hgb 8.2 g/dL (13.6-17.9) L 05/16/23 05:46 Hct 24.5 % (39.6-49.0) L 05/16/23 05:46 Plt Count 240 thou/uL (152-406) 05/16/23 05:46 PT 14.5 SECONDS (9.5-12.5) H 05/06/23 22:57 INR 1.33 05/06/23 22:57 APTT 32.9 SECONDS (24.3-36.9) 05/09/23 10:13 Sodium 138 mEq/L (136-145) 05/16/23 05:46 Potassium 3.6 mEq/L (3.5-5.1) 05/16/23 05:46 BUN 32 mg/dL (7-18) H 05/16/23 05:46 Creatinine 2.15 mg/dL (0.70-1.30) H 05/16/23 05:46 Glucose 146 mg/dL (74-106) H 05/16/23 05:46 Magnesium 2.0 mg/dL (1.6-2.4) 05/16/23 05:46 Total Bilirubin 0.5 mg/dL (0.2-1.0) 05/12/23 07:36 AST 18 U/L (15-37) 05/12/23 07:36 ALT 16 U/L (16-61) 05/12/23 07:36 Alkaline Phosphatase 69 U/L (45-117) 05/12/23 07:36 Home Medications: Allopurinol 300 mg PO DAILY 04/18/19 Apremilast [Otezla] 30 mg PO BID 04/18/19 Hydralazine HCl [Apresoline] 100 mg PO Q8H 04/18/19 Insulin Detemir [Levemir Flextouch] 60 units SQ BID 04/18/19 Liraglutide [Victoza 2-Malvin] 1.8 units SQ DAILY 04/18/19 Omeprazole [Prilosec] 40 mg PO DAILY 04/18/19 Rosuvastatin [Crestor*] 10 mg PO DAILY 04/18/19 glipiZIDE [Glipizide ER] 5 mg PO BID 04/18/19 Gabapentin 300 mg PO BID 04/19/19 Baclofen 10 mg PO BEDTIME 01/11/22 Calcium Carbonate [Calcium] 600 mg PO DAILY #0 01/11/22 Cholecalciferol (Vitamin D3) [Vitamin D 1000 Iu Tab*] 2,000 unit PO DAILY #0 01/11/22 Magnesium Oxide [Magnesium] 250 mg PO BID 01/11/22 [place]-3/Dha/Epa/Fish Oil [Fish Oil 1,000 mg Softgel] 1 each PO BID 01/11/22 Bumetanide [Bumex*] 2 mg PO BID 04/08/22 Carvedilol [Coreg] 25 mg PO BID 04/08/22 Multivit-Min/FA/Lycopen/Lutein [Centrum Silver Tablet] 1 each PO DAILY 04/08/22 Amoxicillin 500 mg PO BID 10/28/22 Aspirin [Ab Chewable Aspirin] 81 mg PO DAILY 05/07/23 Ferrous Sulfate [Iron] 325 mg PO BID 05/07/23 Ticagrelor [Brilinta] 60 mg PO BID 05/07/23 Mupirocin Calcium [Bactroban Nasal*] 1 appl CONCHITA BID #1 tube 05/16/23 metOLazone [Zaroxolyn*] 2.5 mg PO Q48H #15 tab 05/16/23 New Medications: Mupirocin Calcium [Bactroban Nasal*] 1 appl CONCHITA BID #1 tube metOLazone [Zaroxolyn*] 2.5 mg PO Q48H #15 tab Physician Discharge Instructions: Physician Discharge Instructions: Patient presented with dizziness, productive cough, 1+ bilateral lower extremity edema. Troponins were noted to be elevated on ED but trended flat. Patient's bumex was restarted at 2 mg twice a day and had improvement of his lower extremity edema. Cardiology was consulted. Dr. Salas had recommended for nuclear stress test however was unable to get done here secondary to size/weight. Discussed with cardiology who recommended to follow up in office in ~1-2 weeks for outpatient stress test. No further inpatient work up. During his hospitalization, blood cultures were obtained and came back positive as patient was about to be discharged. On further discussion / chart review patient was noted to have a history cryptogenic bacteremia - recurrent Enterococcus. He has had 2 prior episodes in the past (January 2022 & March 2022), this being his third episode. Patient reportedly had multiple tests done at [facility] ~1.5 yrs ago, and never found source, completed 6wks IV abx previously. Blood cultures this hospitalization grew Enterococcus Faecalis in 2/2 bottles with similar sensitivities to prior episodes. Patient was initially treated with vanc / rifampin (05/07-05/10) and was transitioned to IV ampicillin / rocephin after culture sensitivities came back. Discussed with ID who recommenced 6 weeks of IV antibiotics from date of cultures without growth. Repeat blood cultures also grew Enterococcus Faecalis. (05/08). First blood cultures without growth since 05/11/23. Workup this hospitalization without conclusive findings. MILTON was without vegetation and normal functioning valve. No clear source of infection was found this hospitalization. Iron studies this hospitalization were checked and noted to be consistent with mod-severe iron deficiency anemia. (Iron: 20. Tsat%: 9.9%).Patient reported history of iron deficiency and reports taking iron supplementation at home in past. Patient did not receive IV iron this hospitalization secondary to bacteremia / infection. Advised to resume PO iron supplementation on discharge after infection has resolved. Home health we need to check your blood work twice a week, result to be called to Dr. Baker ( ) for antibiotics adjustment. Medications: ceftriaxone 2g q12h (End date: ~06/22/23) ampicillin 2g q6h (End date: ~06/22/23) Bumex 2mg twice daily? Follow up: PCP 3-5 days Cardiology 1-2 weeks Nephrology ~2 weeks Home Health arranged: [facility] Home Health P:[phone] F:[phone] Home IV antibiotics/infusion: [facility]-[address] [place] [address] [address], [place] [address] P/ [place]: [phone] F Diet: ADA Activity: Ad divya Followup: Yann Diaz, [Primary Care Provider] - 1-2 Weeks Nawaf Dotson MD [ACTIVE - CAN ADMIT] - 1 Week (Follow up with Dr. Salas within 1 week.) Time spent managing pt's care (in minutes): 38
[2023-05-16] MEDS: POTASSIUM CL SA 10 MEQ TAB PO ONE (15:26)
[2023-05-16 17:45] VITALS: BP 149/68; TEMP 96.9
== END 2023-05-16 18:55 | disposition home health service (06) | DRG 280 ==
LOC: ER 22:30 → 4TH 05-07 01:35 → OBSVTOIN 05-08 15:06
PROVIDERS: ADMIT Internal Medicine Nephrology; ATTEND Internal Medicine
PROC: B24BZZ4 Ultrasonography of Heart with Aorta, Transesophageal (ICD-10-PCS; 2023-05-11)
PROC: 02HV33Z Insertion of Infusion Device into Superior Vena Cava, Percutaneous Approach (ICD-10-PCS; principal; 2023-05-15)
DX: I21.4 Non-ST elevation (NSTEMI) myocardial infarction (principal); I50.33 Acute on chronic diastolic (congestive) heart failure; N17.0 Acute kidney failure with tubular necrosis; J96.00 Acute respiratory failure, unspecified whether with hypoxia or hypercapnia; I13.0 Hypertensive heart and chronic kidney disease with heart failure and stage 1 through stage 4 chronic kidney disease, or unspecified chronic kidney disease; I87.319 Chronic venous hypertension (idiopathic) with ulcer of unspecified lower extremity; L97.929 Non-pressure chronic ulcer of unspecified part of left lower leg with unspecified severity; L97.919 Non-pressure chronic ulcer of unspecified part of right lower leg with unspecified severity; R78.81 Bacteremia; E87.1 Hypo-osmolality and hyponatremia; N18.30 Chronic kidney disease, stage 3 unspecified; E11.22 Type 2 diabetes mellitus 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chronic kidney disease; E11.40 Type 2 diabetes mellitus 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neuropathy, unspecified; D63.1 Anemia in chronic kidney disease; D50.9 Iron deficiency anemia, unspecified; E78.5 Hyperlipidemia, unspecified; I77.9 Disorder of arteries and arterioles, unspecified; I87.2 Venous insufficiency (chronic) (peripheral); M19.90 Unspecified osteoarthritis, unspecified site; K21.9 Gastro-esophageal reflux disease without esophagitis; L40.50 Arthropathic psoriasis, unspecified; L29.9 Pruritus, unspecified; G47.33 Obstructive sleep apnea (adult) (pediatric); I27.20 Pulmonary hypertension, unspecified; E78.00 Pure hypercholesterolemia, unspecified; I25.10 Atherosclerotic heart disease of native coronary artery without angina pectoris; B95.2 Enterococcus as the cause of diseases classified elsewhere; Z88.8 Allergy status to other drugs, medicaments and biological substances; Z95.2 Presence of prosthetic heart valve; Z79.4 Long term (current) use of insulin; Z79.84 Long term (current) use of oral hypoglycemic drugs; Z86.73 Personal history of transient ischemic attack (TIA), and cerebral infarction without residual deficits; Z90.49 Acquired absence of other specified parts of digestive tract; Z79.82 Long term (current) use of aspirin; Z79.01 Long term (current) use of anticoagulants; Z79.02 Long term (current) use of antithrombotics/antiplatelets; Z79.899 Other long term (current) drug therapy; Z96.653 Presence of artificial knee joint, bilateral; Z87.891 Personal history of nicotine dependence
CPT/HCPCS: 36415; 70450; 70496; 70498; 71045; 80048; 80053; 80076; 80202; 82728; 82947; 83540; 83735; 84466; 84484; 85025; 85027; 85610; 85730; 86140; 87040; 87077; 87186; 87205; 93005; 93306; 93312; 93880; 96374; 97116; 97161; 99285; G0378; J0290; J0360; J0461; J0696; J1644; J1815; J2250; J2310; J3010; J7040; Q5106; Q9967

== ENCOUNTER 2023-05-25 07:15 | Emergency (ER) | payer OTHER ==
[2023-05-25] MEDS ORDERED: NA CHLORIDE 0.9% 500 ML ONE (07:41)
[2023-05-25 08:46] LABS: PT Prothrombin Time 14.2 SECONDS (9.5-12.5); PTT, Activated Partial Thromb 34.5 SECONDS (24.3-36.9); Protime INR 1.3
[2023-05-25 08:53] LABS: Absolute Basophils 0.1 K/uL (0-0.5); Absolute Eosinophils 1.2 K/uL (0-0.5); Absolute Lymphocytes (CBC) 1.4 K/uL (0.7-4.9); Absolute Monocytes 0.6 K/uL (0.1-1.3); Absolute Neutrophil 12.1 K/uL (1.8-8.0); Basophils % 0.7 % (0-1.3); Eosinophils % 7.5 % (0-4.4); Hemoglobin 8.7 g/dL (13.6-17.9); Lymphocytes % 9.3 % (15.3-44.8); MCH 25.4 pg (27.0-35.0); MCHC 31.1 g/dL (32.0-36.0); MCV 81.9 fL (80-100); MPV 10.5 fL (7.6-11.3); Monocytes % 3.8 % (3.3-12.3); Neutrophils % 78.7 % (41.7-73.7); Nucleated RBC Absolute Count 0.1 (0-0); Nucleated Red Blood Cells % 0.3 % (0-0); Platelets 187 thou/uL (152-406); RBC Red Blood Cell Count 3.42 M/uL (4.33-5.43); Red Cell Distribution Width 18.7 % (12.1-15.2)
[2023-05-25 08:57] LABS: Albumin 2.8 g/dL (3.4-5.0); Albumin/Globulin Ratio 0.5 (1.1-1.8); Anion Gap 12.6 mEq/L (5.0-15.0); Bilirubin Total 0.4 mg/dL (0.2-1.0); Globulin 5.5 g/dL (2.3-3.5); Magnesium 2.8 mg/dL (1.6-2.4); Potassium 3.6 mEq/L (3.5-5.1); Protein, Total 8.3 g/dL (6.4-8.2)
[2023-05-25 09:00] LABS: Troponin High Sensitivity 99.6 pg/mL (<58.9)
--- NOTE | 2023-05-25 09:17 | RAD REPORT ---
EXAM DESCRIPTION: RAD - Chest Single View - 05/25/2023 8:30 am CLINICAL HISTORY: weakness Chest pain. COMPARISON: <Comparisons> FINDINGS: Portable technique limits examination quality. Mild pulmonary edema. The heart is mildly enlarged in size. Right-sided venous catheter its tip in th e SVC. IMPRESSION: Mild CHF.
[2023-05-25 09:56] LABS: Atypical Lymphocytes 2 %; Band Neutrophils 2 % (0-1); Differential Total Cells Count 100; Eosinophils 4 % (0-3); Lymphocytes 9 % (15-42); Metamyelocytes 3 % (0-0); Monocytes 5 % (0-10); Segmented Neutrophils 75 % (40-80)
[2023-05-25 09:59] LABS: Blood Morphology Comment NOTED (NOT SEEN); Hypochromasia 2+; Platelet Estimate ADEQ
[2023-05-25] MEDS ORDERED: CEFTRIAXONE 1000 MG/VIAL ONE (10:21)
[2023-05-25] MEDS ORDERED: AMPICILLIN/SULBACT 1.5GM VIAL ONE (10:22)
[2023-05-25] MEDS ORDERED: NA CHLORIDE 0.9% 100 ML ONE (10:22)
--- NOTE | 2023-05-25 11:26 | ER ---
Nurse's Notes [facility] Yuniel Name: Dwight Flaherty Age: 78 yrs Sex: Male : 1945 Arrival Date: 05/25/2023 Time: 07:15 Bed 3 Private MD: Diagnosis: Mobitz type II heart block Presentation: 05/24 07:22 Chief complaint: EMS states: "Weakness, dizziness, shakiness that started this morning. rs5 Blood sugars of 70 on arrival, 20g oral glucose adm". 07:22 Coronavirus screen: At this time, the client does not indicate any symptoms associated rs5 with coronavirus-19. Ebola Screen: No symptoms or risks identified at this time. Initial Sepsis Screen: Does the patient meet any 2 criteria? No. Patient's initial sepsis screen is negative. Does the patient have a suspected source of infection? No. Patient's initial sepsis screen is negative. Risk Assessment: Do you want to hurt yourself or someone else? Patient reports no desire to harm self or others. Onset of symptoms was May 25, 2023. 07:22 Method Of Arrival: EMS: [facility] rs5 07:22 Acuity: GENO 2 rs5 Triage Assessment: 14:09 General: Appears uncomfortable, Behavior is calm, cooperative, appropriate for age. cp4 Pain: Denies pain. 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 - Social history:: Smoking status: Patient denies any tobacco usage or history of. - Family history:: not pertinent. Screenin:[facility] ED Fall Risk Assessment (Adult) History of falling in the last 3 months, ph including since admission Yes- single mechanical fall (1 pt) Confusion or Disorientation No (0 pts) Intoxicated or Sedated No (0 pts) Impaired Gait Yes (1 pt) Mobility Assist Device Used Yes (1 pt) Altered Elimination No (0 pt) Score/Fall Risk Level 3 or more points = High Risk Oriented to surroundings, Maintained a safe environment, Educated pt \\T\\ family on fall prevention, incl call for assistance when getting out of bed, Assessed \\T\\ reinforced patient's understanding of fall precautions, Provided non-skid footwear, Hourly rounding (assess needs \\T\\ fall precautionary measures) done, Used ambulatory aids as needed (educated on \\T\\ assisted with), Used gait belt as appropriate Implemented a Fall Risk Plan of Care, Apply high fall risk patient identification: yellow non skid footwear/ fall signage, Remained with patient while ambulating, Utilized family, sitter, or virtual automatic spinning lathe operator as indicated. Abuse screen: Denies threats or abuse. Denies injuries from another. Nutritional screening: No deficits noted. Tuberculosis screening: No symptoms or risk factors identified. Assessment: 07:45 Reassessment: Dr. Gandara notified of intermittent HR in 30s, requested repeat EKG, jl7 repeat EKG done and shown to Dr. Gandara. 07:53 Reassessment: Transported via stretcher to trauma room 3. jl7 Vital Signs: 07:22 BP 144 / 73; Pulse 58; Resp 19; Pulse Ox 98% ; rs5 08:15 BP 122 / 80; Pulse 38; Resp 15; Pulse Ox 99% ; ph 08:30 BP 144 / 66; Pulse 50; Resp 14; Pulse Ox 99% ; ph 09:01 BP 129 / 66; Pulse 44; Resp 14; Pulse Ox 100% on R/A; ph 09:30 BP 128 / 83; Pulse 51; Resp 18; Pulse Ox 100% ; cp4 10:00 BP 154 / 45; Pulse 46; Resp 18; Pulse Ox 100% ; cp4 10:30 BP 149 / 40; Pulse 51; Resp 18; Pulse Ox 97% ; cp4 11:00 BP 122 / 53; Pulse 45; Resp 18; Pulse Ox 100% ; cp4 11:30 BP 124 / 66; Pulse 46; Resp 18; Pulse Ox 100% ; cp4 12:00 BP 124 / 65; Pulse 46; Resp 18; Pulse Ox 100% ; cp4 12:30 BP 132 / 53; Pulse 47; Resp 18; Pulse Ox 99% ; cp4 13:00 BP 124 / 53; Pulse 47; Resp 18; Pulse Ox 99% ; cp4 13:30 BP 111 / 52; Pulse 49; Resp 18; Pulse Ox 99% ; cp4 14:00 BP 145 / 51; Pulse 54; Resp 18; Pulse Ox 100% ; cp4 ED Course: 07:20 Patient arrived in ED. em1 07:22 Ismael Gandara MD is Attending Physician. rt 07:32 Jarvis Juárez, RN is Primary Nurse. rs5 07:36 Triage completed. rs5 07:46 Patient has correct armband on for positive identification. Bed in low position. Call jl7 light in reach. Side rails up X2. Client placed on continuous cardiac and pulse oximetry monitoring. NIBP monitoring applied. nurse monitoring on. 07:46 EKG done, by ED staff, reviewed by Ismael Gandara MD. jl7 08:25 First set of blood cultures drawn by me, Second set of blood cultures drawn by me. ds4 08:27 Primary Nurse role handed off by Jarvis Juárez, RN jl7 08:30 Door closed. Noise minimized. Warm blanket given. ph 08:30 Inserted saline lock: 22 gauge in left antecubital area, using aseptic technique. Blood ds4 collected. Missed attempt(s): 24 gauge in left hand. 08:32 Chest Single View XRAY In Process Unspecified. EDMS 08:43 Mignon Pierson, RN is Primary Nurse. ph 10:04 Transfer initiated with [facility] transfer center. em1 11:40 Pt accepted as a transfer to [facility]; transportation arranged with [facility]. em1 14:08 Provided Education on: Mobitz type 2 heart block. cp4 14:08 No provider procedures requiring assistance completed. Patient transferred, IV remains cp4 in place. 14:09 Arm band placed on right wrist. Patient placed in an exam room, on a stretcher. cp4 Administered Medications: 08:18 Drug: NS 0.9% IV 500 ml IV at bolus once Route: IV; Rate: bolus; Site: left antecubital;ph 10:09 Follow up: Response: No adverse reaction; IV Status: Completed infusion; IV Intake: ph 500ml 10:29 Drug: Rocephin - Rocephin (cefTRIAXone) IVPB 1 grams IVPB once over 30 mins; (mix in 50 cp4 mL NS) Route: IVPB; Infused Over: 30 mins; Site: left antecubital; 10:36 Follow up: Response: No adverse reaction; IV Status: Completed infusion cp4 10:36 Drug: Ampicillin-Sulbactam Sodium IVPB 1.5 grams IVPB once over 30 mins; (mix in 100 mL cp4 NS) Route: IVPB; Infused Over: 30 mins; Site: left antecubital; 12:46 Follow up: Response: No adverse reaction; IV Status: Completed infusion cp4 Medication: 08:30 VIS not applicable for this client. ph Intake: 10:09 IV: 500ml; Total: 500ml. ph Outcome: 11:26 ER care complete, transfer ordered by . rt 14:08 Transferred by ground EMS to [facility], [facility] [place] completed. cp4 X-rays sent w/ patient. 14:08 Condition: stable 14:10 Patient left the ED. cp4 Signatures: Dispatcher [employer] Ignacio Talley em1 Rao Hayward ds4 Mignon Pierson RN RN Vesna Casiano RN RN jl7 Ismael Gandara MD MD rt Jarvis Juárez RN RN rs5 Audra Rodriguez cp4 Corrections: (The following items were deleted from the chart) 08:05 07:22 Acuity: GENO 3 rs5 rs5
--- NOTE | 2023-05-25 11:26 | EDPHYS ---
Physician Documentation [facility] Name: Dwihgt Flaherty Age: 78 yrs Sex: Male : 1945 Arrival Date: 05/25/2023 Time: 07:15 Bed 3 Private MD: ED Physician Ismael Gandara HPI: 05/24 08:01 This 78 yrs old Male presents to ER via EMS with complaints of Low Blood Sugar. rt 08:01 Patient with recent history of admission for bacteremia currently on IV antibiotics rt through PICC line presents to the ED with not feeling well and generalized weakness. Denies pain. Denies shortness of breath. Denies other acute complaints at this time, symptoms are moderate in severity, no other aggravating or alleviating factors.. 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 - Social history:: Smoking status: Patient denies any tobacco usage or history of. - Family history:: not pertinent. ROS: 08:01 Cardiovascular: Negative for chest pain, palpitations, and edema, Respiratory: Negative rt for shortness of breath, cough, wheezing, and pleuritic chest pain, Abdomen/GI: Negative for abdominal pain, nausea, vomiting, diarrhea, and constipation, MS/Extremity: Negative for injury and deformity, Skin: Negative for injury, rash, and discoloration, Psych: Negative for depression, anxiety, suicide ideation, homicidal ideation, and hallucinations, 08:01 Constitutional: Positive for fatigue, malaise, 08:01 Neuro: Positive for weakness, Negative for altered mental status, Exam: 08:39 ECG was reviewed by the Attending Physician. rt 08:39 ECG was reviewed by the Attending Physician. 08:43 Constitutional: This is a well developed, well nourished patient who is awake, alert, rt and in no acute distress. Head/Face: Normocephalic, atraumatic. Chest/axilla: Normal chest wall appearance and motion. Nontender with no deformity. No lesions are appreciated. Cardiovascular: Regular rate and rhythm with a normal S1 and S2. No gallops, murmurs, or rubs. Normal PMI, no JVD. No pulse deficits. Respiratory: Lungs have equal breath sounds bilaterally, clear to auscultation and percussion. No rales, rhonchi or wheezes noted. No increased work of breathing, no retractions or nasal flaring. Abdomen/GI: Soft, non-tender, with normal bowel sounds. No distension or tympany. No guarding or rebound. No evidence of tenderness throughout. Skin: Warm, dry with normal turgor. Normal color with no rashes, no lesions, and no evidence of cellulitis. MS/ Extremity: Pulses equal, no cyanosis. Neurovascular intact. Full, normal range of motion. Neuro: Awake and alert, GCS 15, oriented to person, place, time, and situation. Cranial nerves II-XII grossly intact. Motor strength 5/5 in all extremities. Sensory grossly intact. Cerebellar exam normal. Normal gait. Vital Signs: 07:22 BP 144 / 73; Pulse 58; Resp 19; Pulse Ox 98% ; rs5 08:15 BP 122 / 80; Pulse 38; Resp 15; Pulse Ox 99% ; ph 08:30 BP 144 / 66; Pulse 50; Resp 14; Pulse Ox 99% ; ph 09:01 BP 129 / 66; Pulse 44; Resp 14; Pulse Ox 100% on R/A; ph 09:30 BP 128 / 83; Pulse 51; Resp 18; Pulse Ox 100% ; cp4 10:00 BP 154 / 45; Pulse 46; Resp 18; Pulse Ox 100% ; cp4 10:30 BP 149 / 40; Pulse 51; Resp 18; Pulse Ox 97% ; cp4 11:00 BP 122 / 53; Pulse 45; Resp 18; Pulse Ox 100% ; cp4 11:30 BP 124 / 66; Pulse 46; Resp 18; Pulse Ox 100% ; cp4 12:00 BP 124 / 65; Pulse 46; Resp 18; Pulse Ox 100% ; cp4 12:30 BP 132 / 53; Pulse 47; Resp 18; Pulse Ox 99% ; cp4 13:00 BP 124 / 53; Pulse 47; Resp 18; Pulse Ox 99% ; cp4 13:30 BP 111 / 52; Pulse 49; Resp 18; Pulse Ox 99% ; cp4 14:00 BP 145 / 51; Pulse 54; Resp 18; Pulse Ox 100% ; cp4 MDM: 07:23 Patient medically screened. rt 12:16 Differential diagnosis: Sepsis, dysrhythmia. Data reviewed: vital signs, nurses notes, rt lab test result(s), EKG, radiologic studies. Consideration of Admission/Observation Escalation of care including admission/observation considered. Patient requires transfer for higher level. Management of patient was discussed with the following: Lead Mobile Developer: Discussed with patient's credit risk manager, recommends patient go to ICU at [facility]. I considered the following discharge prescriptions or medication management in the emergency department Medications were administered in the Emergency Department. See MAR. Independent interpretation of the following test(s) in the Emergency Department X-Ray: My interpretation is No pneumonia seen interpretation of x-ray images. Care significantly affected by the following chronic conditions: Diabetes. Counseling: I had a detailed discussion with the patient and/or guardian regarding the historical points, exam findings, and any diagnostic results supporting the discharge/admit diagnosis, lab results, radiology results, the need to transfer to another facility. Response to treatment: the patient's symptoms have mildly improved after treatment. 05/24 07:24 Order name: Blood Culture Adult (2) rt 05/24 07:24 Order name: CBC with Diff; Complete Time: 10:36 rt 05/24 07:24 Order name: CMP; Complete Time: 09:30 rt 05/24 07:24 Order name: Lactate w/ 2H reflex if indic.; Complete Time: 09:30 rt 05/24 07:24 Order name: Protime (+inr); Complete Time: 09:30 rt 05/24 07:24 Order name: Ptt, Activated; Complete Time: 09:30 rt 05/24 07:24 Order name: Magnesium; Complete Time: :30 rt 05/24 07:24 Order name: NT PRO-BNP; Complete Time: 09:30 rt 05/24 07:24 Order name: Troponin HS; Complete Time: :30 rt 05/24 07:40 Order name: Glucose, Ancillary Testing; Complete Time: 09:30 EDMS 05/24 08:03 Order name: Glucose, Ancillary Testing; Complete Time: 09:30 EDMS 05/24 08:57 Order name: Manual Differential; Complete Time: 10:36 EDMS 05/24 12:09 Order name: Lactate Sepsis 2 HR Follow-up EDMS 05/24 14:08 Order name: Glucose, Ancillary Testing EDMS 05/24 07:24 Order name: Chest Single View XRAY; Complete Time: 09:30 rt 05/24 07:24 Order name: EKG; Complete Time: 07:25 rt 05/24 07:24 Order name: Accucheck; Complete Time: 07:46 rt 05/24 07:24 Order name: Cardiac monitoring; Complete Time: 07:46 rt 05/24 07:24 Order name: EKG - Nurse/Tech; Complete Time: 07:46 rt 05/24 07:24 Order name: IV Saline Lock - Large Bore; Complete Time: 08:18 rt 05/24 07:24 Order name: Labs collected and sent; Complete Time: 08:31 rt 05/24 07:24 Order name: O2 Per Protocol; Complete Time: 07:46 rt 05/24 07:24 Order name: O2 Sat Monitoring; Complete Time: 07:46 rt 05/24 07:24 Order name: Vital Signs; Complete Time: 07:46 rt 05/24 07:24 Order name: IV Saline Lock; Complete Time: 08:18 rt EC:39 Rate is 55 beats/min. Rhythm is regular, Sinus bradycardia with intraventricular block. rt Left axis deviation noted. AK interval is prolonged at 134 msec. QRS interval is normal. QT interval is normal. No Q waves. No ST changes noted. 08:39 Rate is 38 beats/min. Rhythm is irregular, 2nd Degree Block with Left bundle branch rt block, Mobitz II. QT interval is normal. No Q waves. No ST changes noted. Administered Medications: 08:18 Drug: NS 0.9% IV 500 ml IV at bolus once Route: IV; Rate: bolus; Site: left antecubital;ph 10:09 Follow up: Response: No adverse reaction; IV Status: Completed infusion; IV Intake: ph 500ml 10:29 Drug: Rocephin - Rocephin (cefTRIAXone) IVPB 1 grams IVPB once over 30 mins; (mix in 50 cp4 mL NS) Route: IVPB; Infused Over: 30 mins; Site: left antecubital; 10:36 Follow up: Response: No adverse reaction; IV Status: Completed infusion cp4 10:36 Drug: Ampicillin-Sulbactam Sodium IVPB 1.5 grams IVPB once over 30 mins; (mix in 100 mL cp4 NS) Route: IVPB; Infused Over: 30 mins; Site: left antecubital; 12:46 Follow up: Response: No adverse reaction; IV Status: Completed infusion cp4 Disposition Summary: 05/25/23 11:26 Transfer Ordered Notes: Transfer Location: [facility] rt Reason: Higher level of care rt Condition: Stable rt Problem: new rt Symptoms: have improved rt Accepting Physician: (05/25/23 14:10) cp4 Diagnosis - Mobitz type II heart block rt Forms: - Medication Reconciliation Form rt - SBAR form rt Critical care time excluding procedures: 12:18 Critical care time: Bedside Care: 30 minutes, Consultation: 10 minutes. Total time: 40 rt minutes Signatures: Dispatcher [employer] Mignon Dickerson RN RN ph [place], Ryan, MD MD rt Jarvis Juárez RN RN rs5 Audra Rodriguez cp4 Corrections: (The following items were deleted from the chart) 14:10 11:26 rt cp4
[2023-05-25 14:22] VITALS: O2SAT 100
[2023-05-25 14:48] VITALS: BP 145/51
--- NOTE | 2023-05-26 11:55 | EKG ---
Test Date: 2023-05-25 Test Time: 07:29:42 Business Proposal Rep: SHYA MEASUREMENT RESULTS: Intervals: Rate: 55 SD: 338 QRSD: 134 QT: 570 QTc: 545 [place]: P: 66 SD: 338 QRS: -42 T: 58 INTERPRETIVE STATEMENTS: Sinus bradycardia with marked sinus arrhythmia with 1st degree AV block with occasional premature ventricular complexes Left axis deviation Nonspecific intraventricular block Abnormal ECG Compared to ECG 05/07/2023 06:44:44 Ventricular premature complex(es) now present First degree AV block now present Left-axis deviation now present Sinus rhythm no longer present Junctional rhythm no longer present Fusion complex(es) no longer present AV dissociation no longer present Electronically Signed On 05-26-23 11:50:08 CDT by Nawaf Dotson
--- NOTE | 2023-05-26 11:55 | EKG ---
Test Date: 2023-05-25 Test Time: 07:42:54 Special Needs Bus Driver: SHAY MEASUREMENT RESULTS: Intervals: Rate: 38 TN: 382 QRSD: 122 QT: 572 QTc: 454 [place]: P: 47 TN: 382 QRS: -44 T: 43 INTERPRETIVE STATEMENTS: Sinus rhythm with 2nd degree AV block (Mobitz II) with 2:1 AV conduction Left axis deviation Left bundle branch block Abnormal ECG Compared to ECG 05/25/2023 07:29:42 Left bundle-branch block now present Sinus bradycardia no longer present Sinus arrhythmia no longer present Ventricular premature complex(es) no longer present First degree AV block no longer present Electronically Signed On 05-26-23 11:49:58 CDT by Nawaf Dotson
== END 2023-05-25 14:10 | disposition short-term general hospital (02) ==
LOC: ER 07:15
DX: I44.1 Atrioventricular block, second degree (principal); E11.9 Type 2 diabetes mellitus without complications; I10 Essential (primary) hypertension; Z95.818 Presence of other cardiac implants and grafts; Z88.8 Allergy status to other drugs, medicaments and biological substances; Z95.828 Presence of other vascular implants and grafts
CPT/HCPCS: 96365; 96361; 93005 ×2; 87040 ×2; 85025; 36415; 83735; 85610; 82947 ×3; 83605 ×2; 85730; 84484; 80053; 83880; 71045; 96375; 99285; 96366; J0295; J7040; J0696